=== PATIENT | female | born 1970 | race Caucasian/White ===

== ENCOUNTER 2017-05-11 15:56 | Inpatient (IN) ==
--- NOTE | 2017-05-11 16:18 | Emergency Department Note ---
Disposition Referrals: Mi Warren, KIER HAND [Primary Care Provider] - Forms: ED Satisfaction Letter General Adult HPI - General Chief complaint: ED Shortness of Breath/Dyspnea Stated complaint: AILIN/ BLE Swelling Source: patient, EMS Limitations: no limitations - History of Present Illness Pain Scale: 8 - Related Data Home Medications Medication Instructions Recorded Confirmed Omeprazole [PriLOSEC] 20 mg PO DAILY 06/22/16 05/10/17 Oxygen 3 l NS AD 06/22/16 05/10/17 Cefuroxime Axetil [Cefuroxime] 250 mg PO BID 05/10/17 05/10/17 Previous Rx's Medication Instructions Recorded MOM Conc [MILK OF MAGNESIA conc] 10 ml PO DAILY PRN #300 ud.liq 06/25/16 Sennosides/Docusate Sodium [Senna 2 each PO DAILY 30 Days 06/25/16 Plus] Albuterol Neb [Proventil Neb] 2.5 mg IH Q2H PRN #60 vial.neb 04/25/17 Albuterol Sulfate [Ventolin Hfa] 18 gm IH Q4H PRN #1 hfa.aer.ad 04/25/17 Allopurinol [Zyloprim 100 MG] 400 mg PO DAILY #120 tablet 04/25/17 Fluticasone/Vilanterol [Breo 1 each IH DAILY 30 Days 04/25/17 Ellipta 100-25 Mcg INH] Gabapentin [Neurontin] 200 mg PO TID #30 capsule 04/25/17 Metoprolol [Lopressor] 12.5 mg PO BID #30 tablet 04/25/17 Montelukast [Singulair] 10 mg PO DAILY #30 tablet 04/25/17 Theophylline Anhydrous [Theodur] 300 mg PO BID #60 tab.er.12h 04/25/17 Tiotropium [Spiriva] 18 mcg IH DAILY #30 inh 04/25/17 Cholecalciferol (D-3) [Vitamin D] 2,000 unit PO DAILY #60 tablet 05/06/17 Doxycycline 100 mg PO BID #14 capsule 05/06/17 HYDROcodone/Acet 10/325 mg [[place] 1 each PO Q4H PRN #20 tablet 05/06/17 10-325 mg] Lactobacillus [Culturelle] 1 each PO BID #14 cap.sprink 05/06/17 Sodium Polystyrene Sulfonate 30 gm PO DAILY 7 Days 05/06/17 [Kayexalate] Allergies Allergy/AdvReac Type Severity Reaction Status Date / Time No Known Allergies Allergy Verified 05/06/17 00:08 All systems ED: reviewed and negative except as stated. 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 - Social History Smoking Status: Former smoker Smokeless Tobacco Status: No Alcohol use: Reports: none Drug use: Reports: marijuana Physical Exam - General Limitations: no limitations General appearance: alert, in no apparent distress Course Vital Signs Temperature 97.5 F L 05/11/17 16:04 Pulse Rate 87 05/11/17 16:04 Respiratory Rate 05/11/17 16:04 Blood Pressure 147/98 05/11/17 16:04 O2 Sat by Pulse Oximetry 89 05/11/17 16:04 Temperature 97.5 F L 05/11/17 16:04 Pulse Rate 87 05/11/17 16:04 Respiratory Rate 05/11/17 16:04 Blood Pressure 147/98 05/11/17 16:04 O2 Sat by Pulse Oximetry 89 05/11/17 16:04 Oxygen Delivery Oxygen Delivery Nasal Cannula
--- NOTE | 2017-05-11 17:37 | Emergency Department Note ---
START Narrative - START START: I evaluated and examined the patient with the resident and agree with her findings assessment and plan. I spent direct [id number] time with the patient. The patient comes in from home via EMS, they report the patient oxygen saturation was 89% on 3 L. The patient usually requires 3 L nasal cannula secondary to COPD and CHF. A breathing treatment was given and her oxygen saturations went up into the 90s on the same level of oxygen. The patient was also given 40 mg of Lasix per the EMS providers. The patient was seen at another ER last evening and was treated and released. She describes increasing dyspnea. No chest pain or acute abdominal pain. She has had some lower extremity edema. No other acute complaints or concerns. Physical exam: Age-appropriate morbidly obese laying supine following commands answering questions appropriately. Cardiovascular S1-S2 distant. No JVD. Lower extremity edema noted bilaterally. Lungs decreased breath sounds bilaterally. Poor air flow throughout. Abdomen soft nontender nondistended no rebound rigidity or guarding. Neurologic muscle strength and sensation generally preserved cranial nerves II through XII grossly intact. Exposed skin warm and dry without petechial purpura blistering or blackening. Chronic venous stasis changes noted lower extremities. Abdominal wall reveals no juan carlos cellulitis. No crepitance of the skin absence fluctuance or significant reddening. Impression: Hypoxemia Morbid obesity CHF Bilateral pleural effusions COPD The patient has hypercarbic change, pH is normal however, she is taking 2 antibiotics at this time. Lactic acid negative. BiPAP was initiated. The patient appears to be stable. Based on her hypoxemia with an initial O2 sat of 89%, multiple comorbidities including CHF COPD and an abnormal chest x-ray with complaints of dyspnea, I thought it would be appropriate to admit the patient to the hospital for further evaluation. She is currently stable pending admission. The hospitalist has accepted the patient to their care.
[2017-05-11 17:47] LABS: Eosinophils % 0.5 %; Mean Platelet Volume 10.7 fL (9.4-12.4); Nucleated Red Blood Cells 0.5 /100 WBC (0)
[2017-05-11 17:48] LABS: Basophils % 0.8 %; Hematocrit 38.2 % (35.3-44.9); Hemoglobin 11.2 g/dL (11.5-15.4); Immature Granulocytes % 0.5 % (0-4); Lymphocytes # 0.9 K/mcL (0.6-4.6); Lymphocytes % 25.3 %; Mean Corpuscular HGB Conc 29.3 g/dL (31.6-35.5); Mean Corpuscular Hemoglobin 28.6 pg (28.0-33.3); Mean Corpuscular Volume 97.4 fL (83.0-100.0); Monocytes # 0.3 K/mcL (0.0-1.3); Monocytes % 8.8 %; Neutrophils # 2.3 K/mcL (1.6-8.9); Platelet Count 240 K/mcL (140-400); Red Blood Count 3.92 M/mcL (3.82-4.97); Red Cell Distribution Width 19.8 % (11.5-14.5); Segmented Neutrophils % 64.1 %
--- NOTE | 2017-05-11 17:57 | Emergency Department Note ---
Disposition Clinical Impression: Acute and chronic respiratory failure with hypercapnia, COPD exacerbation Acute CHF (congestive heart failure) Qualifiers: Congestive heart failure type: unspecified congestive heart failure type Qualified Code(s): I50.9 - Heart failure, unspecified Disposition: Admitted As Inpatient Condition: Fair Referrals: Mi Warren, PRINT CONTROLLER [Primary Care Provider] - Forms: ED Satisfaction Letter Time of Disposition: 20:24 SOB HPI - General Chief Complaint: ED Shortness of Breath/Dyspnea Stated Complaint: AILIN/ BLE Swelling Time Seen by Provider: 05/11/17 17:18 Source: patient, EMS Mode of arrival: EMS Limitations: no limitations Nursing Notes Reviewed: Yes Vital Signs Reviewed: Yes - History of Present Illness 46 year old female with PMHx of morbid obesity, pulmonary hypertension, chronic respiratory failure, COPD (on 3L home oxygen), CKD, CHF (last echo from 06/05/16 showed LVEF 40%, mild global LV systolic dysfunction with paradoxical bounce of the interventricular septum of unclear etiology), DM, SMITA (on biPAP), hypothyroidism. She was last amitted on 05/04/17 for abdominal wall cellulitis. She was seen at [place] [facility] yesterday for shortness of breath, increase lower extremity swelling. Per ED notes, she has refused retirement placement in the past. She was discharged from [place] [facility] [facility] with a prescription for Lasix. Patient came from home and was brought here by [facility]. She has chief complaint of shortness of breath that started today when she was about to go to her doctors appointment. She stated that she went to get into her car and was having significant trouble with difficulty in breathing and could not get into the car. When this happened, she called the squad. Patient reports compliance with BiPAP and says that she wears that every single night. Patient reports compliance with all of her home inhalers. He states that her doctor recently took her off of her Lasix during the 1st week of March. She has been off of Lasix ever since. She admits to nausea with clear vomitus reports diarrhea several times a day that started on . She denies fever admits to having chills. She does have a smoking history of about 28 years and she has smoked 2 packs per day but quit 4 months ago. Patient received 40 mg Lasix by squad. Complains of side effects are no chest pain 06/07. Resting makes chest pain better. There are no exacerbating factors. Chest pain does not wake her up at night. She reports that she has had to left heart catheterizations in the past but has not had any stent placements. Pt Subjective Complaint: shortness of breath Onset (ago): hour(s) Severity: moderate Consistency/Duration: constant Improves with: oxygen Worsens with: other (rest) Known history of: COPD, asthma, congestive heart failure, diabetes Associated symptoms: Reports: chest pain. Denies: fever Treatment prior to arrival: other (lasix) - Related Data Home Medications Medication Instructions Recorded Confirmed Omeprazole [PriLOSEC] 20 mg PO DAILY 06/22/16 05/10/17 Oxygen 3 l NS AD 06/22/16 05/10/17 Previous Rx's Medication Instructions Recorded Albuterol Neb [Proventil Neb] 2.5 mg IH Q2H PRN #60 vial.neb 04/25/17 Albuterol Sulfate [Ventolin Hfa] 18 gm IH Q4H PRN #1 hfa.aer.ad 04/25/17 Allopurinol [Zyloprim 100 MG] 400 mg PO DAILY #120 tablet 04/25/17 Fluticasone/Vilanterol [Breo 1 each IH DAILY 30 Days 04/25/17 Ellipta 100-25 Mcg INH] Gabapentin [Neurontin] 200 mg PO TID #30 capsule 04/25/17 Metoprolol [Lopressor] 12.5 mg PO BID #30 tablet 04/25/17 Montelukast [Singulair] 10 mg PO DAILY #30 tablet 04/25/17 Theophylline Anhydrous [Theodur] 300 mg PO BID #60 tab.er.12h 04/25/17 Tiotropium [Spiriva] 18 mcg IH DAILY #30 inh 04/25/17 Cholecalciferol (D-3) [Vitamin D] 2,000 unit PO DAILY #60 tablet 05/06/17 Sodium Polystyrene Sulfonate 30 gm PO DAILY 7 Days 05/06/17 [Kayexalate] Allergies Allergy/AdvReac Type Severity Reaction Status Date / Time No Known Allergies Allergy Verified 05/06/17 00:08 All systems ED: reviewed and negative except as stated. 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 ) - Cardiovascular Cardiovascular exam: Present: tachycardia - Abdominal Exam Abdominal exam: Present: tenderness, other (abdomen obese with redness in the lower abdomen/pannus area. She has mild epigastric and lower abdominal tenderness to palpation. ) Abdominal tenderness: Present: RLQ, LLQ - Extremities Exam Extremities exam: Present: other (+4 bilateral lower extremity pitting edema. ) - Back Exam Back exam: Present: normal inspection - Neurological Exam Neurological exam: Present: alert, oriented X3 - Psychiatric Psychiatric exam: Present: depressed, anxious Course Vital Signs Temperature 97.5 F L 05/11/17 16:04 Pulse Rate 87 05/11/17 16:04 Respiratory Rate 26 05/11/17 16:04 Blood Pressure 147/98 05/11/17 16:04 O2 Sat by Pulse Oximetry 89 05/11/17 16:04 Temperature 97.5 F L 05/11/17 16:04 Pulse Rate 104 05/11/17 19:05 Respiratory Rate 27 05/11/17 19:05 Blood Pressure 126/83 05/11/17 19:05 O2 Sat by Pulse Oximetry 98 05/11/17 19:05 Oxygen Delivery Oxygen Delivery Room Air Shortness of Breath/Dyspnea - MDM Narrative Medical decision making narrative: CBC showed Hg of 11.2, which is about baseline. BMP PT/INR within normal limits. BMP showed potassium of 4.6, bicarb of 43. Troponin was negative. EKG showed no acute ST changes. Cr and lactic acid normal. BNP was 415. CXR showed mild cardiomegaly with slight pulmonary vascular congestion, and trace bilateral effusions. Patient received 40mg lasix by squad. She also received a breathing treatment, IV steroids, and was placed on BiPAP. ABG showed normal pH with a mixed acid/base disorder, CO2 was 71. Patient was placed on BiPAP, received a breathing treatment, and received one dose of IV methyprednisolone. Patient will be admitted as inpatient for treatment of acute CHF, COPD exacerbation, and acute on chronic respiratory failure with hypercapnia. Spoke with hospitalist, Dr. Cruz, who has accepted the patient. - Medical Records Medical records reviewed: Yes I reviewed the patient's medical records. - Lab Data Lab results reviewed: Yes I reviewed the patient's lab results. Result diagrams: 05/11/17 17:33 05/11/17 17:33 Lab Results 05/11/17 05/11/17 05/11/17 Range/Units 17:33 17:33 17:33 WBC 3.6 L (4.3-11.1) K/mcL RBC 3.92 (3.82-4.97) M/mcL Hgb 11.2 L (11.5-15.4) g/dL Hct 38.2 (35.3-44.9) % MCV 97.4 (83.0-100.0) fL MCH 28.6 (28.0-33.3) pg MCHC 29.3 L (31.6-35.5) g/dL RDW 19.8 H (11.5-14.5) % Plt Count 240 (140-400) K/mcL MPV 10.7 (9.4-12.4) fL Immature Gran % 0.5 (0-4) % Seg Neutrophils % 64.1 % Lymphocytes % 25.3 % Monocytes % 8.8 % Eosinophils % 0.5 % Basophils % 0.8 % Neutrophils # 2.3 (1.6-8.9) K/mcL Lymphocytes # 0.9 (0.6-4.6) K/mcL Monocytes # 0.3 (0.0-1.3) K/mcL Eosinophils # 0.0 (0.0-0.6) K/mcL Basophils # 0.0 (0.0-0.2) K/mcL Nucleated RBCs/100 WBC 0.5 H (0) /100 WBC Platelet Estimate Normal (Normal) Hypochromasia Present A (Not Present) Anisocytosis 2+ A (Not Present) Microcytosis Present A (Not Present) PT (9.4-12.1) Seconds INR APTT (26.0-36.0) Seconds ABG pH (7.32-7.45) pH Units ABG pCO2 (35-45) mmHg ABG pO2 (85-104) mmHg ABG HCO3 (21-27) mEQ/L ABG Total CO2 (20-26) mEq/L ABG O2 Saturation (95-98) % ABG Base Excess (-2.0 to 3.0) mEq/L Blood Gas Modality Inspired O2 % Sodium 142 (136-145) mEq/L Potassium 4.6 H (3.5-4.5) mEq/L Chloride 92 L (98-109) mEq/L Carbon Dioxide 43 H* (19-29) mEq/L BUN 13 (7-20) mg/dL Creatinine 0.99 (0.57-1.11) mg/dL Est GFR ( Amer) > 60 (> 60) Est GFR (Non-Af Amer) > 60 (> 60) BUN/Creatinine Ratio 13 (6-26) Glucose 83 (70-99) mg/dL Calculated Osmolality 293 (280-300) Lactic Acid 0.7 (0.5-2.2) mmol/L Calcium 10.1 (8.6-10.8) mg/dL Total Bilirubin (0.2-1.2) mg/dL Direct Bilirubin (0.0-0.5) mg/dL Indirect Bilirubin (0.0-1.2) mg/dL AST (5-34) Units/L ALT (0-55) Units/L Alkaline Phosphatase (38-126) Units/L Troponin I (0-0.03) ng/mL C-Reactive Protein (Less than 5) mg/L B-Natriuretic Peptide (0-100) pg/mL Serum Total Protein (6.0-8.3) g/dL Albumin (3.5-5.0) g/dL Globulin (2.4-3.5) g/dL Albumin/Globulin Ratio (1.1-2.2) 05/11/17 05/11/17 05/11/17 Range/Units 17:33 17:33 17:33 WBC (4.3-11.1) K/mcL RBC (3.82-4.97) M/mcL Hgb (11.5-15.4) g/dL Hct (35.3-44.9) % MCV (83.0-100.0) fL MCH (28.0-33.3) pg MCHC (31.6-35.5) g/dL RDW (11.5-14.5) % Plt Count (140-400) K/mcL MPV (9.4-12.4) fL Immature Gran % (0-4) % Seg Neutrophils % % Lymphocytes % % Monocytes % % Eosinophils % % Basophils % % Neutrophils # (1.6-8.9) K/mcL Lymphocytes # (0.6-4.6) K/mcL Monocytes # (0.0-1.3) K/mcL Eosinophils # (0.0-0.6) K/mcL Basophils # (0.0-0.2) K/mcL Nucleated RBCs/100 WBC (0) /100 WBC Platelet Estimate (Normal) Hypochromasia (Not Present) Anisocytosis (Not Present) Microcytosis (Not Present) PT 13.3 H (9.4-12.1) Seconds INR 1.2 APTT 32.1 (26.0-36.0) Seconds ABG pH (7.32-7.45) pH Units ABG pCO2 (35-45) mmHg ABG pO2 (85-104) mmHg ABG HCO3 (21-27) mEQ/L ABG Total CO2 (20-26) mEq/L ABG O2 Saturation (95-98) % ABG Base Excess (-2.0 to 3.0) mEq/L Blood Gas Modality Inspired O2 % Sodium (136-145) mEq/L Potassium (3.5-4.5) mEq/L Chloride (98-109) mEq/L Carbon Dioxide (19-29) mEq/L BUN (7-20) mg/dL Creatinine (0.57-1.11) mg/dL Est GFR ( Amer) (> 60) Est GFR (Non-Af Amer) (> 60) BUN/Creatinine Ratio (6-26) Glucose (70-99) mg/dL Calculated Osmolality (280-300) Lactic Acid (0.5-2.2) mmol/L Calcium (8.6-10.8) mg/dL Total Bilirubin (0.2-1.2) mg/dL Direct Bilirubin (0.0-0.5) mg/dL Indirect Bilirubin (0.0-1.2) mg/dL AST (5-34) Units/L ALT (0-55) Units/L Alkaline Phosphatase (38-126) Units/L Troponin I 0.01 (0-0.03) ng/mL C-Reactive Protein (Less than 5) mg/L B-Natriuretic Peptide 415 H (0-100) pg/mL Serum Total Protein (6.0-8.3) g/dL Albumin (3.5-5.0) g/dL Globulin (2.4-3.5) g/dL Albumin/Globulin Ratio (1.1-2.2) 05/11/17 05/11/17 Range/Units 17:33 18:30 WBC (4.3-11.1) K/mcL RBC (3.82-4.97) M/mcL Hgb (11.5-15.4) g/dL Hct (35.3-44.9) % MCV (83.0-100.0) fL MCH (28.0-33.3) pg MCHC (31.6-35.5) g/dL RDW (11.5-14.5) % Plt Count (140-400) K/mcL MPV (9.4-12.4) fL Immature Gran % (0-4) % Seg Neutrophils % % Lymphocytes % % Monocytes % % Eosinophils % % Basophils % % Neutrophils # (1.6-8.9) K/mcL Lymphocytes # (0.6-4.6) K/mcL Monocytes # (0.0-1.3) K/mcL Eosinophils # (0.0-0.6) K/mcL Basophils # (0.0-0.2) K/mcL Nucleated RBCs/100 WBC (0) /100 WBC Platelet Estimate (Normal) Hypochromasia (Not Present) Anisocytosis (Not Present) Microcytosis (Not Present) PT (9.4-12.1) Seconds INR APTT (26.0-36.0) Seconds ABG pH 7.44 (7.32-7.45) pH Units ABG pCO2 71 H* (35-45) mmHg ABG pO2 74 L (85-104) mmHg ABG HCO3 48.2 H (21-27) mEQ/L ABG Total CO2 50.4 H (20-26) mEq/L ABG O2 Saturation 95 (95-98) % ABG Base Excess 20.9 H (-2.0 to 3.0) mEq/L Blood Gas Modality NC Inspired O2 36 % Sodium (136-145) mEq/L Potassium (3.5-4.5) mEq/L Chloride (98-109) mEq/L Carbon Dioxide (19-29) mEq/L BUN (7-20) mg/dL Creatinine (0.57-1.11) mg/dL Est GFR ( Amer) (> 60) Est GFR (Non-Af Amer) (> 60) BUN/Creatinine Ratio (6-26) Glucose (70-99) mg/dL Calculated Osmolality (280-300) Lactic Acid (0.5-2.2) mmol/L Calcium (8.6-10.8) mg/dL Total Bilirubin 0.7 (0.2-1.2) mg/dL Direct Bilirubin 0.3 (0.0-0.5) mg/dL Indirect Bilirubin 0.4 (0.0-1.2) mg/dL AST 16 (5-34) Units/L ALT < 6 (0-55) Units/L Alkaline Phosphatase 132 H (38-126) Units/L Troponin I (0-0.03) ng/mL C-Reactive Protein 9 H (Less than 5) mg/L B-Natriuretic Peptide (0-100) pg/mL Serum Total Protein 7.4 D (6.0-8.3) g/dL Albumin 3.7 D (3.5-5.0) g/dL Globulin 3.7 H (2.4-3.5) g/dL Albumin/Globulin Ratio 1.0 L (1.1-2.2) - Radiology Data Radiology results reviewed: Yes I reviewed the patient's radiology results. KEG showed low voltage, sinus rhythm, slowed interventricular delay, no acute ST changes, ventricular rate 96, KY interval 166, QRS 118, Qt/Qtc 356/410, P-R- T axes 66 -1 19 - EKG Data EKG attestation: Yes I reviewed and interpreted this EKG. EKG results narrative: low voltage, sinus rhythm. Ventricular rate: 96, KY interval 166, QRS duration: 118, Qt/Qtc: 356/410, P-R-T axes 66 -1 19. no acute ischemic changes noted. EKG shows normal: Reports: sinus rhythm
[2017-05-11 17:58] LABS: INR 1.2; Prothrombin Time 13.3 Seconds (9.4-12.1)
[2017-05-11 18:01] LABS: Activated Partial Thrombo Time 32.1 Seconds (26.0-36.0)
[2017-05-11 18:02] LABS: BUN/Creatinine Ratio 13 (6-26); Blood Urea Nitrogen 13 mg/dL (7-20); Calcium 10.1 mg/dL (8.6-10.8); Chloride 92 mEq/L (98-109); Glucose 83 mg/dL (70-99); Osmolality,Calculated 293 (280-300); Potassium 4.6 mEq/L (3.5-4.5); Sodium 142 mEq/L (136-145); eGFR For African Americans > 60 (> 60); eGFR For Non-African Americans > 60 (> 60)
[2017-05-11 18:04] LABS: Albumin 3.7 g/dL (3.5-5.0); Alkaline Phosphatase 132 Units/L (38-126); Anisocytosis 2+ (Not Present); Aspartate Amino Transferase 16 Units/L (5-34); Bilirubin,Direct 0.3 mg/dL (0.0-0.5); Bilirubin,Indirect 0.4 mg/dL (0.0-1.2); Bilirubin,Total 0.7 mg/dL (0.2-1.2); C-Reactive Protein 9 mg/L (Less than 5); Globulin 3.7 g/dL (2.4-3.5); Hypochromasia Present (Not Present); Microcytosis Present (Not Present); Platelet Estimate Normal (Normal); Total Protein 7.4 g/dL (6.0-8.3)
[2017-05-11] MEDS ORDERED: Nitroglycerin 1 INCH/GM PACKET TP ONE (18:07)
[2017-05-11] MEDS ORDERED: Ipratropium/Albuterol Neb 3 ML IH ONE (18:07)
[2017-05-11] MEDS ORDERED: methylPREDNISolone 125 MG/2 ML VIAL IVP ONE (18:08)
[2017-05-11 18:11] LABS: Alanine Aminotransferase < 6 Units/L (0-55); Carbon Dioxide 43 mEq/L (19-29)
[2017-05-11] MEDS ORDERED: *HR* HYDROcodone/Acet 5/325 mg TABLET PO ONE (18:33)
[2017-05-11 18:48] LABS: ABG Base Excess 20.9 mEq/L (-2.0 to 3.0); ABG HCO3 48.2 mEQ/L (21-27); ABG Oxygen Saturation 95 % (95-98); ABG PH 7.44 pH Units (7.32-7.45); ABG PO2 74 mmHg (85-104); ABG TCO2 50.4 mEq/L (20-26)
[2017-05-11 18:49] LABS: Blood Gas FiO2 36 %
[2017-05-11 18:50] LABS: ABG PCO2 71 mmHg (35-45)
[2017-05-12] MEDS ORDERED: Nitroglycerin 0.4 MG TAB.SUBL SL PRN (00:55)
[2017-05-12] MEDS ORDERED: Ondansetron 4 MG/2 ML VIAL IVP PRN (00:57)
[2017-05-12] MEDS ORDERED: Dextrose Gel 15 GM PO PRN ×2 (00:57)
[2017-05-12] MEDS ORDERED: D5% in Water 1,000 ML IVC PRN (00:57)
[2017-05-12] MEDS ORDERED: Naloxone 0.4 MG/ML INJ IVP PRN (00:57)
[2017-05-12] MEDS ORDERED: Acetaminophen 325 MG TABLET PO PRN (00:57)
[2017-05-12] MEDS ORDERED: *HR* Dextrose 50 % in Water (Syg) 50 ML SYRINGE IVP PRN (00:57)
--- NOTE | 2017-05-12 01:08 | Internal Med History&Physical ---
Date of Encounter: 05/12/17 Time of Encounter: 01:05 Assessment and Plan (1) Acute CHF (congestive heart failure) Current visit: Yes Status: Acute Acute and chronic hypoxic and hypercapnic respiratory failure secondary to acute systolic CHF exacerbation in combination with acute COPD exacerbation possibly from viral bronchitis Restart Lasix IV, strict I's and O's and daily weight Continue Solu-Medrol, DuoNeb's, BiPAP, oxygen therapy Omeprazole for GI prophylaxis and subcutaneous heparin for DVT prophylaxis. The patient will be admitted as inpatient, expected to stay more than 2 midnights. Full code. Time spent on this admission 40 minutes. High risk due to respiratory failure Qualifiers: Congestive heart failure type: systolic Qualified Code(s): I50.21 - Acute systolic (congestive) heart failure (2) Acute and chronic respiratory failure with hypercapnia Current visit: Yes Status: Acute (3) DM type 2 (diabetes mellitus, type 2) Current visit: No Status: Chronic Continue insulin sliding scale Qualifiers: Diabetes mellitus complication status: without complication Diabetes mellitus custodial insulin use: without custodial use Qualified Code(s): E11.9 - Type 2 diabetes mellitus without complications (4) Hypothyroidism Current visit: No Status: Acute Qualifiers: Hypothyroidism type: unspecified Qualified Code(s): E03.9 - Hypothyroidism , unspecified (5) Morbid obesity with BMI of 40.0-44.9, adult Current visit: No Status: Chronic (6) CKD (chronic kidney disease) stage 3, GFR 30-59 ml/min Current visit: No Status: Chronic Internal Medicine - H&P: HPI Chief complaint: Shortness of breath Admitted From: Emergency Dept History of present illness: Ms. Corbett is a 46 year old female with a past medical history of systolic CHF with an ejection fraction of 40%, chronic kidney disease stage III, COPD using 3 L at home, chronic respiratory failure, obstructive sleep apnea using BiPAP came to the emergency room complaining of persistent difficulty breathing. She was seen the day before at [facility] emergency room where she was discharged on Lasix. Prior to that, she was discharged from [facility] on May 04 after being treated for an abdominal wall cellulitis. The patient has been off her Lasix since the end of March when her creatinine increased. Her chest x-ray shows pulmonary vascular congestion and trace bilateral pleural effusions pH is 7.44 PCO2 was 71 and PO2 74 white blood cell count 3.6 BNP is 415 the patient is obese. Heart rate was 102 blood pressure 147/98. In the past the patient has refused to go to nursing facilities, she complains of increased leg swelling as well, was brought to the emergency room by the squad, she was given Lasix 40 mg , Solu-Medrol, her saturation was 89% on 3 L, was started on BiPAP at the emergency room. Is complaining of abdominal pain at the moment Past Med Surg Social Fam HX - Past Medical History Medical history: arthritis, asthma, cardiomyopathy, CHF (Systolic ejection fraction 40%), COPD (Oxygen dependent 3 L at home), diabetes (Not insulin- dependent), GERD, hypertension, osteoporosis, peripheral artery disease, venous stasis, other Psychiatric history: anxiety, depression, other (Leukopenia, morbid obesity, pulmonary hypertension, chronic respiratory failure, chronic kidney disease stage III, obstructive sleep apnea on BiPAP, hypothyroidism, neuropathy, cardiomyopathy, peripheral artery disease, abdominal wall cellulitis, hyperkalemia, irritable bowel syndrome, gout) - Past Surgical History Surgical History: herniorrhaphy, other - Social History Smoking Status: Former smoker Packs per day: Smoked 2 packs per day for 28 years quit 4 months ago Smokeless Tobacco Status: No Alcohol use: none Drug use: marijuana - Family History Son Adopted: No Family Member Ethnicity: Non- Living Status: Still Living Hx Family Cardiac Disorders: Yes Hx Family Respiratory Disorders: Yes Hx Family Cancer: No Hx Family GI Disorders: No Hx Family Endocrine Disorder: Yes Hx Family Neuromuscular Disorders: No Hx Family Neurologic Disorders: No Hx Family HEENT Disorders: No Hx Family Autoimmune Disorders: No Father Living Status: Hx Family Cardiac Disorders: Yes (enlarged heart) Hx Family Respiratory Disorders: (Emphysema) Hx Family Cancer: Yes (Lung and rectal cancer) Hx Family Endocrine Disorder: Yes (diabetic) Mother Living Status: Hx Family Cardiac Disorders: Yes (stents) Hx Family GI Disorders: Yes (GI bleed) Hx Family Endocrine Disorder: Yes (diabetic) - Additional Family History Additional family history: Father with colon cancer diabetes, mother with CAD and diabetes, sister with CKD Internal Medicine - H&P: Meds Omeprazole [PriLOSEC] 20 mg PO DAILY 06/22/16 [History] Oxygen 3 l NS AD 06/22/16 [History] Albuterol Neb [Proventil Neb] 2.5 mg IH Q2H PRN #60 vial.neb 04/25/17 [Rx] Albuterol Sulfate [Ventolin Hfa] 18 gm IH Q4H PRN #1 hfa.aer.ad 04/25/17 [Rx] Allopurinol [Zyloprim 100 MG] 400 mg PO DAILY #120 tablet 04/25/17 [Rx] Fluticasone/Vilanterol [Breo Ellipta 100-25 Mcg INH] 1 each IH DAILY 30 Days [Rx] Gabapentin [Neurontin] 200 mg PO TID #30 capsule 04/25/17 [Rx] Metoprolol [Lopressor] 12.5 mg PO BID #30 tablet 04/25/17 [Rx] Montelukast [Singulair] 10 mg PO DAILY #30 tablet 04/25/17 [Rx] Theophylline Anhydrous [Theodur] 300 mg PO BID #60 tab.er.12h 04/25/17 [Rx] Tiotropium [Spiriva] 18 mcg IH DAILY #30 inh 04/25/17 [Rx] Cholecalciferol (D-3) [Vitamin D] 2,000 unit PO DAILY #60 tablet 05/06/17 [Rx] Sodium Polystyrene Sulfonate [Kayexalate] 30 gm PO DAILY 7 Days 05/06/17 [Rx] Allergies No Known Allergies Allergy (Verified 05/06/17 00:08) All Systems PM: A 10-system review of systems was performed and is negative for pertinent findings except as documented above in the HPI. Review of systems: Patient is a still short of breath, other systems out of the 10 reviewed were negative. White blood cell count is 3.6 but she has history of leukopenia - Constitutional Vitals: Temp Pulse Resp BP Pulse Ox 99.3 F 92 24 111/69 94 05/11/17 23:43 05/11/17 23:43 05/11/17 23:43 05/11/17 23:43 05/11/17 23:43 General appearance: Present: A&O X 3, morbidly obese - Head Head exam: Present: atraumatic, normocephalic - Eye Eye exam: Present: PERRL, conjuntiva pink, sclera anicteric Pupils: Present: PERRL - Neck Neck exam general surgery: Present: supple, trachea midline. Absent: lymphadenopathy - Respiratory Respiratory exam: Present: CTAB, rales (Very diminished breath sounds with bibasilar crackles). Absent: accessory muscle use, rhonchi, wheezes - Cardiovascular Cardiovascular exam: Present: RRR, +S1, +S2. Absent: diastolic murmur, gallop, rubs, systolic murmur - GI/Abdominal GI/Abdominal exam: Present: distended (Obese), normal bowel sounds, soft, no peritoneal signs. Absent: tenderness - Extremities Exam Extremities exam: Present: pedal edema (+2 pitting edema both lower extremities) , warm, radial pulses palpable and symetrical. Absent: calf tenderness, cyanotic - Neurological Exam Neurological exam: Present: CN II-XII intact, oriented X3, no focal deficits. Absent: pronater drift, facial droop, speech deficit - Skin Skin exam: Present: dry, intact Internal Med - H&P Results - Labs CBC & Chem 7: 05/11/17 17:33 05/11/17 17:33
[2017-05-12] MEDS: *HR* OxyCODONE Immed Rel 5 MG TABLET PO PRN ×4 (01:17→21:12)
[2017-05-12] MEDS: *HR* Heparin 5,000 UNIT/ML VIAL SQ SCH ×4 (01:17→21:11)
[2017-05-12] MEDS: Furosemide 40 MG/4 ML VIAL IVP SCH ×3 (01:17→16:57)
[2017-05-12] MEDS: *HR* Morphine 2 MG/ML SYRINGE IVP PRN ×4 (03:07→18:35)
[2017-05-12] MEDS: Ipratropium/Albuterol Neb 3 ML IH SCH ×4 (03:40→22:45)
[2017-05-12 05:00] LABS: BUN/Creatinine Ratio 13 (6-26); Blood Urea Nitrogen 13 mg/dL (7-20); Calcium 9.3 mg/dL (8.6-10.8); Chloride 93 mEq/L (98-109); Chol/HDL Ratio 2.7 (0-4.9); Cholesterol 147 mg/dL (< 200); Glucose 178 mg/dL (70-99); HDL Cholesterol 55 mg/dL (40-59); LDL Cholesterol,Calculated 78 mg/dL (0-99); Osmolality,Calculated 297 (280-300); Potassium 5.1 mEq/L (3.5-4.5); Sodium 141 mEq/L (136-145); Triglycerides 68 mg/dL (< 150); eGFR For African Americans > 60 (> 60); eGFR For Non-African Americans 59 (> 60)
[2017-05-12 05:05] LABS: Carbon Dioxide 40 mEq/L (19-29)
[2017-05-12] MEDS ORDERED: MethylPREDNISolone 40 MG/ML VIAL IVP SCH (08:00)
[2017-05-12] MEDS: Gabapentin 100 MG CAPSULE PO SCH ×3 (08:06→21:11)
[2017-05-12] MEDS: Insulin LISPRO 300 UNITS/3 ML VIAL SQ SCH ×4 (08:06→21:07)
--- NOTE | 2017-05-12 08:25 | Electrocardiograph Report ---
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
--- NOTE | 2017-05-12 10:17 | Event Note ---
Date of Encounter: 05/12/17 Time of Encounter: 10:17 46-year-old female with morbid obesity and multiple medical problems including CHF and COPD, presents with complaints of worsening bilateral leg swelling and shortness of breath. Patient was recently admitted and discharged from [facility] after being treated for abdominal wall cellulitis. Patient seen and examined at bedside. Reports leg swelling and some shortness of breath, currently improving. Patient is awake, alert and oriented 3. Morbidly obese with significant abdominal pannus. Chest-S1, S2 heard. Regular rate and rhythm. Lungs with decreased bilateral air entry. Abdomen-soft, extremely obese with pannus, nontender. No evidence of cellulitis. Reviewed labs-potassium 5.1, serum bicarbonate 40, BNP- 415 Review of previous medical records show that patient has had multiple hospitalizations at [facility] and [facility], including 2 in the last month; she is noted to have social and family issues and it is also noted that she may be using narcotic pain medications off the street according to previous notes. Acute on chronic systolic CHF-patient is noted to have bilateral pedal edema during her most recent hospital admission, although she reports this is new. Continue IV Lasix while monitoring serum creatinine as she is noted to have acute on chronic renal failure with the use of diuretics and she was recently taken off diuretics for this reason. Fluid restriction and urine output monitoring. Continue telemetry monitoring, beta obed. Supportive care and supplemental oxygen. Previous echocardiogram from May 2016 showed moderately decreased EF around 40%, mild global left ventricular systolic dysfunction, indeterminate diastolic function, mild to moderate tricuspid regurgitation, moderate pulmonary hypertension. Will repeat echocardiogram. Chronic kidney disease stage III, hyperkalemia-review of previous records show that patient has always had issues with hyperkalemia and episodes of acute on chronic renal failure. Will give Kayexalate and monitor potassium closely. Low potassium renal diet. Continue telemetry monitoring. Likely mild exacerbation of COPD-taper down IV steroids as tolerated. Continue bronchodilators and supplemental oxygen. Patient does use home oxygen and seems to be having issues with oxygen tanks. product manager financial services and social organization professor to follow. Metabolic alkalosis-likely contraction alkalosis related to the use of diuretics. Continue to monitor. Morbid obesity, obstructive sleep apnea-continue CPAP during sleep.
[2017-05-12] MEDS: MethylPREDNISolone 40 MG/ML VIAL IVP SCH (16:55)
[2017-05-13] MEDS: *HR* Morphine 2 MG/ML SYRINGE IVP PRN ×4 (00:48→22:47)
[2017-05-13] MEDS: Ipratropium/Albuterol Neb 3 ML IH SCH ×4 (03:40→22:26)
[2017-05-13] MEDS: *HR* OxyCODONE Immed Rel 5 MG TABLET PO PRN ×3 (04:54→17:14)
[2017-05-13] MEDS: *HR* Heparin 5,000 UNIT/ML VIAL SQ SCH ×3 (05:00→22:47)
[2017-05-13] MEDS: MethylPREDNISolone 40 MG/ML VIAL IVP SCH ×2 (05:00→17:14)
[2017-05-13 05:08] LABS: Hematocrit 33.9 % (35.3-44.9); Hemoglobin 9.3 g/dL (11.5-15.4); Lymphocytes # 0.5 K/mcL (0.6-4.6); Lymphocytes % 24.9 %; Mean Corpuscular HGB Conc 27.4 g/dL (31.6-35.5); Mean Corpuscular Volume 98.3 fL (83.0-100.0); Mean Platelet Volume 10.5 fL (9.4-12.4); Monocytes # 0.2 K/mcL (0.0-1.3); Monocytes % 10.2 %; Platelet Count 174 K/mcL (140-400); Red Blood Count 3.45 M/mcL (3.82-4.97); Red Cell Distribution Width 18.7 % (11.5-14.5); Segmented Neutrophils % 64.9 %
[2017-05-13 05:22] LABS: BUN/Creatinine Ratio 17 (6-26); Blood Urea Nitrogen 18 mg/dL (7-20); Calcium 8.4 mg/dL (8.6-10.8); Chloride 90 mEq/L (98-109); Glucose 142 mg/dL (70-99); Osmolality,Calculated 292 (280-300); Potassium 4.8 mEq/L (3.5-4.5); Sodium 139 mEq/L (136-145); eGFR For African Americans > 60 (> 60); eGFR For Non-African Americans 58 (> 60)
[2017-05-13 05:23] LABS: Neutrophils # 1.4 K/mcL (1.6-8.9)
[2017-05-13 05:35] LABS: Carbon Dioxide 42 mEq/L (19-29)
[2017-05-13 05:51] LABS: Anisocytosis 1+ (Not Present)
[2017-05-13 05:52] LABS: Hypochromasia Present (Not Present); Large Platelets Present (Not Present); Platelet Estimate Normal (Normal)
[2017-05-13] MEDS: Furosemide 40 MG/4 ML VIAL IVP SCH ×2 (08:24→17:14)
[2017-05-13] MEDS: Insulin LISPRO 300 UNITS/3 ML VIAL SQ SCH ×4 (08:24→20:08)
[2017-05-13] MEDS: Gabapentin 100 MG CAPSULE PO SCH ×3 (08:25→20:02)
--- NOTE | 2017-05-13 12:02 | Internal Med Progress Note ---
Date of Encounter: 05/13/17 Time of Encounter: 11:59 - Assessment and plan (1) Acute exacerbation of chronic obstructive airways disease Current Visit: Yes Status: Acute Assessment and plan: Improving slowly. Continue IV steroids, taper down as tolerated. Continue scheduled bronchodilators and continue supplemental oxygen along with BiPAP support when asleep. financial services agent working on arranging continuous oxygen supply for the patient due to social issues. (2) Congestive heart failure Current Visit: Yes Status: Acute Assessment and plan: Patient is noted to have subjective dyspnea along with pedal edema. She likely has cor pulmonale due to severe pulmonary hypertension due to COPD and obstructive sleep apnea. Continue IV Lasix, beta obed, fluid restriction and urine output monitoring. Repeat echocardiogram shows improved ejection fraction at 45-50%, moderate right ventricular hypokinesis, moderate to severe right ventricular dilation, severe tricuspid regurgitation and pulmonary hypertension. Continue telemetry monitoring. Qualifiers: Congestive heart failure type: combined Congestive heart failure chronicity : acute on chronic Qualified Code(s): I50.43 - Acute on chronic combined systolic (congestive) and diastolic (congestive) heart failure (3) Morbid obesity with BMI of 40.0-44.9, adult Current Visit: Yes Status: Chronic (4) Moderate to severe pulmonary hypertension Current Visit: Yes Status: Chronic Assessment and plan: Likely secondary to COPD and obstructive sleep apnea. (5) CKD (chronic kidney disease) stage 3, GFR 30-59 ml/min Current Visit: Yes Status: Chronic Assessment and plan: Serum creatinine noted to be stable. Serum potassium improved to 4.8. (6) DM type 2 (diabetes mellitus, type 2) Current Visit: Yes Status: Chronic Assessment and plan: Continue Accu-Chek blood glucose monitoring with sliding scale insulin. Diabetic diet. Qualifiers: Diabetes mellitus complication status: with kidney complications Diabetes mellitus complication detail: with chronic kidney disease Diabetes mellitus superintendent container terminal insulin use: without prison use Chronic kidney disease stage: stage 3 (moderate) Qualified Code(s): E11.22 - Type 2 diabetes mellitus with diabetic chronic kidney disease; N18.3 - Chronic kidney disease, stage 3 ( moderate) (7) SMITA treated with BiPAP Current Visit: Yes Status: Chronic (8) Hypothyroidism Current Visit: Yes Status: Chronic Assessment and plan: Resume home dose of levothyroxine. Qualifiers: Hypothyroidism type: unspecified Qualified Code(s): E03.9 - Hypothyroidism , unspecified (9) Panniculitis Current Visit: Yes Status: Chronic Assessment and plan: Patient reports abdominal pain and there is no evidence of cellulitis. This is likely related to chronic panic colitis. Continue pain control with when necessary Percocet and IV morphine. - Subjective Interval history: Feels better with improving dyspnea and leg and abdominal swelling; reports abdominal pain, no emesis, diarrhea or constipation; - Constitutional Vitals: Temp Pulse Resp BP Pulse Ox 98.1 F 92 16 115/71 94 05/13/17 11:41 05/13/17 11:41 05/13/17 11:41 05/13/17 11:41 05/13/17 11:41 General appearance: Present: A&O X 3, morbidly obese, answers questions appropriately - Respiratory Respiratory exam: Present: CTAB, wheezes (B/L basal expiratory wheezing). Absent: accessory muscle use, rales, rhonchi - Cardiovascular Cardiovascular exam: Present: RRR, +S1, +S2. Absent: diastolic murmur, gallop, rubs, systolic murmur - GI/Abdominal GI/Abdominal exam: Present: normal bowel sounds, soft (indurated pannus with some tenderness over lower abdomen), no peritoneal signs. Absent: distended, tenderness - Extremities Exam Extremities exam: Present: pedal edema (2+ pitting pedal edema B/L), warm, radial pulses palpable and symetrical. Absent: calf tenderness, cyanotic - Neurological Exam Neurological exam: Present: CN II-XII intact, oriented X3, no focal deficits. Absent: pronater drift, facial droop, speech deficit - Skin Skin exam: Present: dry, intact Internal Medicine: Result - Labs CBC & Chem 7: 05/13/17 04:26 05/13/17 04:26 Labs: Short CBC 05/13/17 Range/Units 04:26 WBC 2.1 L (4.3-11.1) K/mcL Hgb 9.3 L D (11.5-15.4) g/dL Hct 33.9 L (35.3-44.9) % Plt Count 174 (140-400) K/mcL Neutrophils # 1.4 L (1.6-8.9) K/mcL BMP 05/13/17 04:26 Sodium 139 Potassium 4.8 H Chloride 90 L Carbon Dioxide 42 H* BUN 18 Creatinine 1.04 Glucose 142 H Calcium 8.4 L - ABG Interpretation ABG results: ABG ABG pH 7.44 pH Units (7.32-7.45) 05/11/17 18:30 ABG pCO2 71 mmHg (35-45) H* 05/11/17 18:30 ABG pO2 74 mmHg (85-104) L 05/11/17 18:30 ABG O2 Saturation 95 % (95-98) 05/11/17 18:30 PT/INR, D-dimer PT 13.3 Seconds (9.4-12.1) H 05/11/17 17:33 Consult Discharge Plan - Plan Referrals: Mi Warren, NIGHT SHIFT SUPERVISOR [Primary Care Provider] - 05/20/17 9:30 am (Please follow up as schedule...)
[2017-05-13] MEDS ORDERED: *HR* Morphine 2 MG/ML SYRINGE IVP ONE (19:32)
[2017-05-14] MEDS: *HR* OxyCODONE Immed Rel 5 MG TABLET PO PRN ×2 (01:03→08:14)
[2017-05-14] MEDS: *HR* Morphine 2 MG/ML SYRINGE IVP PRN (03:05)
[2017-05-14] MEDS: Ipratropium/Albuterol Neb 3 ML IH SCH ×2 (04:02→10:39)
[2017-05-14 05:12] LABS: Hematocrit 32.6 % (35.3-44.9); Hemoglobin 9.2 g/dL (11.5-15.4); Immature Granulocytes % 0.8 % (0-4); Immature Platelets 7.7 % (1.1-6.1); Lymphocytes # 0.3 K/mcL (0.6-4.6); Lymphocytes % 10.8 %; Mean Corpuscular HGB Conc 28.2 g/dL (31.6-35.5); Mean Corpuscular Hemoglobin 27.7 pg (28.0-33.3); Mean Corpuscular Volume 98.2 fL (83.0-100.0); Mean Platelet Volume 11.2 fL (9.4-12.4); Monocytes # 0.2 K/mcL (0.0-1.3); Monocytes % 8.1 %; Neutrophils # 2.1 K/mcL (1.6-8.9); Platelet Count 155 K/mcL (140-400); Red Blood Count 3.32 M/mcL (3.82-4.97); Red Cell Distribution Width 18.5 % (11.5-14.5); Segmented Neutrophils % 80.3 %
[2017-05-14] MEDS: *HR* Heparin 5,000 UNIT/ML VIAL SQ SCH ×2 (05:14→13:40)
[2017-05-14] MEDS: MethylPREDNISolone 40 MG/ML VIAL IVP SCH (05:15)
[2017-05-14 05:29] LABS: BUN/Creatinine Ratio 19 (6-26); Blood Urea Nitrogen 23 mg/dL (7-20); Calcium 8.7 mg/dL (8.6-10.8); Chloride 88 mEq/L (98-109); Glucose 174 mg/dL (70-99); Osmolality,Calculated 290 (280-300); Potassium 4.9 mEq/L (3.5-4.5); Sodium 136 mEq/L (136-145); eGFR For African Americans > 60 (> 60); eGFR For Non-African Americans 50 (> 60)
[2017-05-14 05:31] LABS: Carbon Dioxide 41 mEq/L (19-29)
[2017-05-14 05:43] LABS: Anisocytosis 1+ (Not Present); Hypochromasia Present (Not Present); Stomatocytes 1+ (Not Present)
[2017-05-14 05:44] LABS: Platelet Estimate Normal (Normal); Polychromasia 1+ (Not Present)
[2017-05-14] MEDS: Insulin LISPRO 300 UNITS/3 ML VIAL SQ SCH ×2 (08:39→11:55)
[2017-05-14] MEDS: Gabapentin 100 MG CAPSULE PO SCH (08:40)
[2017-05-14] MEDS: Furosemide 40 MG/4 ML VIAL IVP SCH (08:40)
[2017-05-14 11:12] VITALS: BP 104/68
[2017-05-14] MEDS ORDERED: *HR* OxyCODONE Immed Rel 5 MG TABLET PO PRN (11:54)
--- NOTE | 2017-05-14 13:08 | Discharge Summary ---
Date of Encounter: 05/14/17 Time of Encounter: 11:50 - Discharge Diagnosis (1) Acute exacerbation of chronic obstructive airways disease Priority: Primary Status: Acute (2) Congestive heart failure Priority: Primary Status: Acute Qualifiers: Congestive heart failure type: combined Congestive heart failure chronicity : acute on chronic Qualified Code(s): I50.43 - Acute on chronic combined systolic (congestive) and diastolic (congestive) heart failure (3) Morbid obesity with BMI of 40.0-44.9, adult Priority: Secondary Status: Chronic (4) Moderate to severe pulmonary hypertension Priority: Secondary Status: Chronic (5) CKD (chronic kidney disease) stage 3, GFR 30-59 ml/min Priority: Secondary Status: Chronic (6) DM type 2 (diabetes mellitus, type 2) Priority: Secondary Status: Chronic Qualifiers: Diabetes mellitus complication status: with kidney complications Diabetes mellitus complication detail: with chronic kidney disease Diabetes mellitus shelter insulin use: without shelter use Chronic kidney disease stage: stage 3 (moderate) Qualified Code(s): E11.22 - Type 2 diabetes mellitus with diabetic chronic kidney disease; N18.3 - Chronic kidney disease, stage 3 ( moderate) (7) SMITA treated with BiPAP Priority: Secondary Status: Chronic (8) Hypothyroidism Priority: Secondary Status: Chronic Qualifiers: Hypothyroidism type: unspecified Qualified Code(s): E03.9 - Hypothyroidism , unspecified (9) Panniculitis Priority: Secondary Status: Chronic - Discharge Medications Prescriptions: Furosemide [Lasix] 40 mg PO DAILY #30 tablet Metoprolol [Lopressor] 12.5 mg PO BID #30 tablet predniSONE [PredniSONE] 40 mg PO DAILY #14 tablet Home Medications: Omeprazole [PriLOSEC] 20 mg PO DAILY 06/22/16 [History] Oxygen 3 l NS AD 06/22/16 [History] Albuterol Neb [Proventil Neb] 2.5 mg IH Q2H PRN #60 vial.neb 04/25/17 [Rx] Albuterol Sulfate [Ventolin Hfa] 18 gm IH Q4H PRN #1 hfa.aer.ad 04/25/17 [Rx] Allopurinol [Zyloprim 100 MG] 400 mg PO DAILY #120 tablet 04/25/17 [Rx] Fluticasone/Vilanterol [Breo Ellipta 100-25 Mcg INH] 1 each IH DAILY 30 Days [Rx] Metoprolol [Lopressor] 12.5 mg PO BID #30 tablet 04/25/17 [Rx] Montelukast [Singulair] 10 mg PO DAILY #30 tablet 04/25/17 [Rx] Theophylline Anhydrous [Theodur] 300 mg PO BID #60 tab.er.12h 04/25/17 [Rx] Tiotropium [Spiriva] 18 mcg IH DAILY #30 inh 04/25/17 [Rx] Cholecalciferol (D-3) [Vitamin D] 2,000 unit PO DAILY #60 tablet 05/06/17 [Rx] Sodium Polystyrene Sulfonate [Kayexalate] 30 gm PO DAILY 7 Days 05/06/17 [Rx] Furosemide [Lasix] 40 mg PO DAILY #30 tablet 05/14/17 [Rx] Gabapentin [Neurontin] 100 mg PO TID #30 capsule 05/14/17 [Rx] Metoprolol [Lopressor] 12.5 mg PO BID #30 tablet 05/14/17 [Rx] predniSONE [PredniSONE] 40 mg PO DAILY #14 tablet 05/14/17 [Rx] Allergies/Adverse Reactions: Allergies No Known Allergies Allergy (Verified 05/06/17 00:08) Procedures/tests Complete & Pending: Procedures Performed prior 72 hours Category Date Time Status EV echocardiogram Routine Y 05/12/17 08:08 Completed - Notes to Outpatient Provider Please check and follow BMP for serum creatinine; patient has significant pedal edema and has been restarted on Lasix PO 40mg daily; Date of admission: 05/12/17 00:57 Primary care physician: Mi Warren CNP Discharging clinician: Mai Grimes Anticipated date of discharge: 05/14/17 - Patient Status Disposition: Home, Self-Care Condition: Fair Functional capacity at discharge: independent ambulation Overall status at discharge: patient is progressing back to baseline - Discharge Instructions Instructions: Heart Failure (DC), Diabetes Mellitus Type 2 in Adults (DC), Chronic Obstructive Pulmonary Disease (DC) Follow Up With: Mi Warren CNP [Primary Care Provider] - 05/20/17 9:30 am (Please follow up as schedule...) - Diet and Activity Activity: resume usual activities as tolerated, wear oxygen at all times, other (use CPAP when asleep) Diet: diabetic diet, low fat, low cholesterol, low salt diet Hospital course: Ms. Corbett is a 46 year old female with multiple medical problems as above, who was admitted with shortness of breath, leg swelling and abdominal pain. Patient was noted to have acute exacerbation of COPD and CHF. She was started on scheduled inhaled bronchodilators along with IV steroids, supplemental oxygen and noninvasive positive pressure ventilation with BiPAP support. She was also given IV Lasix along with fluid restriction for leg swelling. Echocardiogram was done which showed mild LV systolic dysfunction with EF 45-50% , mild global LV hypokinesis, moderate right ventricular hypokinesis, moderate to severely dilated right ventricle, moderate right atrial dilatation, severe tricuspid regurgitation and pulmonary hypertension. Patient likely has significant cor pulmonale and right heart failure due to COPD and obstructive sleep apnea. These findings were explained to the patient and she was encouraged to be compliant with her medications, fluid restriction, use of CPAP at night and she verbalized understanding. Patient continued to request for narcotic pain medications while in the hospital for abdominal pain, which is likely secondary to chronic panic colitis as she is noted to be extremely obese with significant pannus. Patient was evaluated by physical therapy and deemed to have no needs at discharge. Patient is noted to have social and family issues with obtaining medications and keeping her doctor's appointments. director of creative services was involved and assisted patient with the same. She is now medically stable for discharge with outpatient follow-up. - Time Spent with Patient Total time spent providing and/or coordinating discharge services: Greater than 30 minutes (50 min) - Constitutional Vitals: Temp Pulse Resp BP Pulse Ox 98.1 F 90 16 104/68 92 05/14/17 11:09 05/14/17 11:09 05/14/17 11:09 05/14/17 11:09 05/14/17 11:09 General appearance: Present: A&O X 3, morbidly obese, answers questions appropriately - Respiratory Respiratory exam: Present: CTAB. Absent: accessory muscle use, rales, rhonchi, wheezes - Cardiovascular Cardiovascular exam: Present: RRR, +S1, +S2. Absent: diastolic murmur, gallop, rubs, systolic murmur
[2017-05-14] MEDS ORDERED: predniSONE 20 MG TABLET PO SCH (18:00)
[2017-05-15] MEDS ORDERED: Furosemide 40 MG TABLET PO SCH (09:00)
== END 2017-05-14 14:59 | disposition home or self-care (01) | DRG 194 ==
LOC: EMEROO 15:56 → 2ANU 15:56
PROVIDERS: ADMIT Nurse Practitioner Acute Care; ATTEND Internal Medicine

== ENCOUNTER 2017-05-29 04:24 | Inpatient (IN) ==
[2017-05-29] MEDS ORDERED: Acetaminophen 325 MG TABLET PO PRN (09:21)
[2017-05-29] MEDS ORDERED: Naloxone 0.4 MG/ML INJ IVP PRN (09:21)
--- NOTE | 2017-05-29 09:41 | Internal Med History&Physical ---
Date of Encounter: 05/29/17 Time of Encounter: 09:39 Assessment and Plan (1) Acute on chronic renal failure Current visit: Yes Status: Acute Patient with CKD, baseline Cr 1.1-1.2, presented to outside s/p fall. Assume renal failure is pre-renal, non-oliguric, secondary to pigment nephropathy as a result of fall However, patient also taking diuretics at home for CHF, associated metabolic alkalosis may have been from a combination of contraction alkalosis, and compensation for respiratory acidosis. I will send urine analysis, uric acid, lactic acid level. Aggressive fluid hydration with 2 L bolus stat, and maintenance fluid. Renal ultrasound ordered. Avoid nephrotoxins. Please Miller catheter and monitor intake and output strictly. We will repeat chemistry every 6-8 hours. Associated hyperkalemia, we will give Kayexalate. Nephrology will be consulted if patient does not improve. Qualifiers: Acute renal failure type: unspecified Chronic kidney disease stage: stage 3 (moderate) Qualified Code(s): N17.9 - Acute kidney failure, unspecified; N18.3 - Chronic kidney disease, stage 3 (moderate) (2) Elevated troponin Current visit: Yes Status: Acute Elevated troponin in the absence of chest pain, and no EKG changes, and in the setting of acute renal failure, acute on chronic respiratory failure, Troponin elevation may be secondary to demand, and elevated creatinine kinase. Patient had a recent echocardiogram done in the middle of April dysuria, which showed EF 40-45%, severe pulmonary hypertension. I will give aspirin, and Lipitor, follow CK No GRACE inhibitor or ARB due to BLANCA Continue metoprolol Consult cardiology (3) Hyperuricemia Current visit: Yes Status: Chronic Patient with chronic hyperuricemia and gout Check uric acid level. (4) Rhabdomyolysis Current visit: Yes Status: Suspected Suspected, check CK stat. Continue IV fluid hydration. Check urine analysis Check uric acid Check lactate level Consult nephrology when necessary. Qualifiers: Rhabdomyolysis type: traumatic Encounter type: initial encounter Qualified Code(s): T79.6XXA - Traumatic ischemia of muscle, initial encounter (5) Transaminitis Current visit: Yes Status: Acute Possibly secondary to rhabdomyolysis, cannot rule out as an effect of hypotension at time of presentation to referral center However at time of review patient was pressure had normalized. Check hepatitis panel Continue to monitor, no coagulopathy" (6) Moderate to severe pulmonary hypertension Current visit: Yes Status: Chronic Chronic, continue BiPAP at bedtime and when the patient is napping. (7) Chronic respiratory failure Current visit: Yes Status: Chronic Acute exacerbation, possibly secondary to fall at time of presentation Chest x-rays are unremarkable Continue BiPAP, nebs when necessary Qualifiers: Respiratory failure complication: hypoxia and hypercapnia Qualified Code(s) : J96.11 - Chronic respiratory failure with hypoxia; J96.12 - Chronic respiratory failure with hypercapnia (8) Congestive heart failure Current visit: Yes Status: Chronic Systolic heart failure Patient with pedal edema However patient currently volume contracted and in AKA, will continue IV fluids for now Hold Lasix for now, continue beta blockers. no grace inhibitors because of AKA Qualifiers: Congestive heart failure type: systolic Congestive heart failure chronicity : chronic Qualified Code(s): I50.22 - Chronic systolic (congestive) heart failure (9) DM type 2 (diabetes mellitus, type 2) Current visit: Yes Status: Chronic FS ACHS ADA diet Sliding scale insulin Qualifiers: Diabetes mellitus complication status: with kidney complications Diabetes mellitus complication detail: with chronic kidney disease Diabetes mellitus continuous churn buttermaker insulin use: without fpc use Chronic kidney disease stage: stage 3 (moderate) Qualified Code(s): E11.22 - Type 2 diabetes mellitus with diabetic chronic kidney disease; N18.3 - Chronic kidney disease, stage 3 ( moderate) (10) SMITA treated with BiPAP Current visit: Yes Status: Chronic Ensure BiPAP at night (11) Vitamin D deficiency Current visit: Yes Status: Chronic Resume home meds (12) Morbid obesity with BMI of 50.0-59.9, adult Current visit: Yes Status: Chronic (13) Fall Current visit: Yes Status: Acute Fall precautions, physical therapy and occupational therapy consult. Knee Xray shows some effusion on the r knee, possibly traumatic NO fractures Qualifiers: Encounter type: initial encounter Qualified Code(s): W19.XXXA - Unspecified fall, initial encounter Internal Medicine - H&P: HPI Chief complaint: Fall Admitted From: Home History of present illness: Ms. Corbett is a 46 year old female with PMH of CHFrEF, Pulmonary HTN (Moderate- Severe), Morbid obesity, chronic kidney disease stage III, diabetes mellitus type 2, obstructive sleep apnea, morbid obesity with chronic paniculitis chronic hypercapnic and hypoxic respiratory failure, BiPAP and oxygen dependent at home, recently discharged a few weeks ago after management of CHF exacerbation active tobacco use, and COPD. Patient was in her usual state of health until the early hours of this morning when she fell on her way from the bathroom. She presented to an outside ER facility where patient was found to be in acute kidney injury, hypotensive and in acute on chronic respiratory failure, she was referred to [facility] for further management. On evaluation at bedside, patient is alert and awake and reports a history of mechanical fall without dizziness without preceding chest pain or diaphoresis. At the time review her only complaint is pain on the right knee. She denies recent changes in her urinary output, She has been compliant with her medications, she denies fever, chills, mildly, or decrease in her oral intake. She denies nausea, vomiting, or diarrhea. Workup at the referral center reveals acute kidney injury with hyperkalemia, hemoconcentration with a normal hemoglobin and normal white count. EKG with sinus tachycardia, right bundle branch block. Arterial blood gas revealed a pH of 7.3, hypercapnia with PCO2 87, hypoxia with PO2 56, Lactate was 2.2. NO extremity imaging was done At time of review, she was lethargic but responsive, HR 103, BP 104/74, O2 92-94 % on 60% FiO2 on BIPAP, Past Med Surg Social Fam HX - Past Medical History Medical history: arthritis, asthma, cardiomyopathy, CHF (Systolic ejection fraction 40%), COPD (Oxygen dependent 3 L at home), diabetes (Not insulin- dependent), GERD, hypertension, osteoporosis, peripheral artery disease, venous stasis, other Psychiatric history: anxiety, depression, other (Leukopenia, morbid obesity, pulmonary hypertension, chronic respiratory failure, chronic kidney disease stage III, obstructive sleep apnea on BiPAP, hypothyroidism, neuropathy, cardiomyopathy, peripheral artery disease, abdominal wall cellulitis, hyperkalemia, irritable bowel syndrome, gout) - Past Surgical History Surgical History: herniorrhaphy, other - Social History Smoking Status: Former smoker Smokeless Tobacco Status: No Alcohol use: none Drug use: marijuana - Family History Son Adopted: No Family Member Ethnicity: Non- Living Status: Still Living Hx Family Cardiac Disorders: Yes Hx Family Respiratory Disorders: Yes Hx Family Cancer: No Hx Family GI Disorders: No Hx Family Endocrine Disorder: Yes Hx Family Neuromuscular Disorders: No Hx Family Neurologic Disorders: No Hx Family HEENT Disorders: No Hx Family Autoimmune Disorders: No Father Living Status: Hx Family Cardiac Disorders: Yes (enlarged heart) Hx Family Respiratory Disorders: (Emphysema) Hx Family Cancer: Yes (Lung and rectal cancer) Hx Family Endocrine Disorder: Yes (diabetic) Mother Living Status: Hx Family Cardiac Disorders: Yes (stents) Hx Family GI Disorders: Yes (GI bleed) Hx Family Endocrine Disorder: Yes (diabetic) Internal Medicine - H&P: Meds Omeprazole [PriLOSEC] 20 mg PO DAILY 06/22/16 [History] Oxygen 3 l NS AD 06/22/16 [History] Albuterol Neb [Proventil Neb] 2.5 mg IH Q2H PRN #60 vial.neb 04/25/17 [Rx] Albuterol Sulfate [Ventolin Hfa] 18 gm IH Q4H PRN #1 hfa.aer.ad 04/25/17 [Rx] Allopurinol [Zyloprim 100 MG] 400 mg PO DAILY #120 tablet 04/25/17 [Rx] Fluticasone/Vilanterol [Breo Ellipta 100-25 Mcg INH] 1 each IH DAILY 30 Days [Rx] Metoprolol [Lopressor] 12.5 mg PO BID #30 tablet 04/25/17 [Rx] Montelukast [Singulair] 10 mg PO DAILY #30 tablet 04/25/17 [Rx] Theophylline Anhydrous [Theodur] 300 mg PO BID #60 tab.er.12h 04/25/17 [Rx] Tiotropium [Spiriva] 18 mcg IH DAILY #30 inh 04/25/17 [Rx] Cholecalciferol (D-3) [Vitamin D] 2,000 unit PO DAILY #60 tablet 05/06/17 [Rx] Sodium Polystyrene Sulfonate [Kayexalate] 30 gm PO DAILY 7 Days 05/06/17 [Rx] Furosemide [Lasix] 40 mg PO DAILY #30 tablet 05/14/17 [Rx] Gabapentin [Neurontin] 100 mg PO TID #30 capsule 05/14/17 [Rx] Metoprolol [Lopressor] 12.5 mg PO BID #30 tablet 05/14/17 [Rx] predniSONE [PredniSONE] 40 mg PO DAILY #14 tablet 05/14/17 [Rx] Allergies No Known Allergies Allergy (Verified 05/06/17 00:08) All Systems PM: A 10-system review of systems was performed and is negative for pertinent findings except as documented above in the HPI. - Constitutional Constitutional: as per HPI - EENT Eyes: as per HPI Ears: as per HPI Nose, mouth and throat: as per HPI - Cardiovascular Cardiovascular ROS IM: as per HPI - Respiratory Respiratory: as per HPI - Gastrointestinal Gastrointestinal: as per HPI - Genitourinary Genitourinary: as per HPI - Musculoskeletal Musculoskeletal ROS IM: as per HPI - Integumentary Integumentary IM: as per HPI - Neurological Neurological ROS: as per HPI - Hematologic/Lymphatic Hematologic/Lymphatic: as per HPI - Constitutional Vitals: Resp BP Pulse Ox 23 85/58 89 05/29/17 07:34 05/29/17 07:34 05/29/17 07:34 General appearance: Present: mild distress, A&O X 3, morbidly obese - Head Head exam: Present: atraumatic, normocephalic - Eye Eye exam: Present: PERRL, conjuntiva pink, sclera anicteric Pupils: Present: PERRL - Neck Neck exam general surgery: Present: supple, trachea midline. Absent: lymphadenopathy - Respiratory Respiratory exam: Present: CTAB. Absent: accessory muscle use, rales, rhonchi, wheezes - Cardiovascular Cardiovascular exam: Present: +S1, +S2, tachycardia. Absent: diastolic murmur, gallop, JVD, rubs, systolic murmur - GI/Abdominal GI/Abdominal exam: Present: distended (Morbidly obese abdomen with huge pannicula. Chronic dermatitis noted, no obvious cellulitis or differential warmth), normal bowel sounds, soft, no peritoneal signs. Absent: tenderness - Extremities Exam Extremities exam: Present: pedal edema (2+ piting pedal edema bilaterally), warm , radial pulses palpable and symetrical. Absent: calf tenderness, cyanotic - Neurological Exam Neurological exam: Present: alert, CN II-XII intact, oriented X3, no focal deficits. Absent: pronater drift, facial droop, speech deficit - Skin Skin exam: Present: dry. Absent: rash Internal Med - H&P Results - Labs CBC & Chem 7: 05/29/17 09:53
[2017-05-29 10:16] LABS: Albumin 2.9 g/dL (3.5-5.0); Albumin/Globulin Ratio 0.9 (1.1-2.2); Bilirubin,Total 0.8 mg/dL (0.2-1.2); Calcium 9.1 mg/dL (8.6-10.8); Globulin 3.1 g/dL (2.4-3.5); Potassium 5.6 mEq/L (3.5-4.5)
[2017-05-29] MEDS ORDERED: 0.9 % Sodium Chloride 1,000 ML IVC SCH (10:30)
[2017-05-29] MEDS: Cholecalciferol (D-3) 1,000 UNIT TABLET PO SCH (10:45)
[2017-05-29] MEDS: Aspirin 81 MG TAB.CHEW PO SCH (10:45)
--- NOTE | 2017-05-29 11:50 | Cardiology Consult Note ---
Date of Encounter: 05/29/17 Time of Encounter: 11:46 Assessment and Plan (1) Elevated troponin Current Visit: Yes Status: Acute Mildly elevated troponin in setting of morbid obesity with chronic respiratory insufficiency, BLANCA. No acute ECG changes. Suspect demand ischemia. Recommend serial troponin/ecgs. REpeat limited echocardiogram with Definity. If no significant change in troponin, change in LV function, or development of ECG changes/chest pain - then recommend medical therapy only. Further recommendations to follow. Discussion w patient/family: The assessment and plan as outlined above was discussed with the patient and/or family members who expressed understanding and agreement. All questions were answered. Thank you for involving us in the care of your patient. Please call with any questions. History of Present Illness Consult date: 05/29/17 Requesting physician: Ubaldo Smith Consult reason: Elevated troponin Chief complaint: fall History of present illness: Ms. Corbett is a 46 year old female with multiple comorbidities: morbid obesity, HFrEF (LVEF 45%), pPHTN, CKD, DM II, SMITA, supplemental oxygen dependant. Reportedly fell - unable to get up. Labs demonstrated BLANCA. Upon my evaluation, she is on BIPAP. Very morbidly obese and chronically ill appearing. No current chest pain. K 5.6 Cr 2.56 AST/ALT 224/198 Tn 0.41. ECG - sinus tachycardia, irbbb Past Med Surg Social Fam HX - Past Medical History Medical history: arthritis, asthma, cardiomyopathy, CHF (Systolic ejection fraction 40%), COPD (Oxygen dependent 3 L at home), diabetes (Not insulin- dependent), GERD, hypertension, osteoporosis, peripheral artery disease, venous stasis, other Psychiatric history: anxiety, depression, other (Leukopenia, morbid obesity, pulmonary hypertension, chronic respiratory failure, chronic kidney disease stage III, obstructive sleep apnea on BiPAP, hypothyroidism, neuropathy, cardiomyopathy, peripheral artery disease, abdominal wall cellulitis, hyperkalemia, irritable bowel syndrome, gout) - Past Surgical History Surgical History: herniorrhaphy, other - Social History Smoking Status: Former smoker Smokeless Tobacco Status: No Alcohol use: none Drug use: marijuana - Family History Son Adopted: No Family Member Ethnicity: Non- Living Status: Still Living Hx Family Cardiac Disorders: Yes Hx Family Respiratory Disorders: Yes Hx Family Cancer: No Hx Family GI Disorders: No Hx Family Endocrine Disorder: Yes Hx Family Neuromuscular Disorders: No Hx Family Neurologic Disorders: No Hx Family HEENT Disorders: No Hx Family Autoimmune Disorders: No Father Living Status: Hx Family Cardiac Disorders: Yes (enlarged heart) Hx Family Respiratory Disorders: (Emphysema) Hx Family Cancer: Yes (Lung and rectal cancer) Hx Family Endocrine Disorder: Yes (diabetic) Mother Living Status: Hx Family Cardiac Disorders: Yes (stents) Hx Family GI Disorders: Yes (GI bleed) Hx Family Endocrine Disorder: Yes (diabetic) Medications and Allergies Omeprazole [PriLOSEC] 20 mg PO DAILY 06/22/16 [History] Oxygen 3 l NS AD 06/22/16 [History] Albuterol Neb [Proventil Neb] 2.5 mg IH Q2H PRN #60 vial.neb 04/25/17 [Rx] Albuterol Sulfate [Ventolin Hfa] 18 gm IH Q4H PRN #1 hfa.aer.ad 04/25/17 [Rx] Allopurinol [Zyloprim 100 MG] 400 mg PO DAILY #120 tablet 04/25/17 [Rx] Fluticasone/Vilanterol [Breo Ellipta 100-25 Mcg INH] 1 each IH DAILY 30 Days [Rx] Metoprolol [Lopressor] 12.5 mg PO BID #30 tablet 04/25/17 [Rx] Montelukast [Singulair] 10 mg PO DAILY #30 tablet 04/25/17 [Rx] Theophylline Anhydrous [Theodur] 300 mg PO BID #60 tab.er.12h 04/25/17 [Rx] Tiotropium [Spiriva] 18 mcg IH DAILY #30 inh 04/25/17 [Rx] Cholecalciferol (D-3) [Vitamin D] 2,000 unit PO DAILY #60 tablet 05/06/17 [Rx] Sodium Polystyrene Sulfonate [Kayexalate] 30 gm PO DAILY 7 Days 05/06/17 [Rx] Furosemide [Lasix] 40 mg PO DAILY #30 tablet 05/14/17 [Rx] Gabapentin [Neurontin] 100 mg PO TID #30 capsule 05/14/17 [Rx] Metoprolol [Lopressor] 12.5 mg PO BID #30 tablet 05/14/17 [Rx] predniSONE [PredniSONE] 40 mg PO DAILY #14 tablet 05/14/17 [Rx] Allergies No Known Allergies Allergy (Verified 05/06/17 00:08) ROS unobtainable: other (Difficult to obtain, patient currently on bipap and difficult to understand) All Systems Review: A 10-system review of systems was performed and is negative for pertinent findings except as documented above in the HPI. Physical Examination Vital Signs, Last 4 Hours Temp Pulse Resp BP Pulse Ox 05/29/17 11:08 98.4 F 112 24 104/74 89 General: Other (Chronically ill appearing, morbidly obese, bipap) HEENT: Atraumatic, Normocephaly Neck: Other (Unable to detect jvd/bruits due to neck size) Cardiac: Other (Distant, unable to auscultate for murmurs. Tachycardia noted. ) Neuro: Other (Somnolent, but wakes up and tries to answer questions) Abdomen: Soft, Other (obese) Musculoskeletal: No Chest Wall Tenderness Extremities: Other (Lymphadema) Results 05/29/17 09:53 Lab Results 05/29/17 05/29/17 09:53 09:53 Sodium 141 Potassium 5.6 H Chloride 92 L Carbon Dioxide 41 H* BUN 57 H Creatinine 2.56 H Glucose 256 H Calcium 9.1 Total Bilirubin 0.8 AST 224 H ALT 198 H Alkaline Phosphatase 99 Troponin I 0.41 H* - Imaging and Cardiology Echo: report reviewed - EKG Interpretation EKG results cardiology: personally reviewed Consult Discharge Plan - Plan Referrals: Sunny Stanley MD [Primary Care Provider] -
[2017-05-29] MEDS: 0.9 % Sodium Chloride 1,000 ML IVC SCH ×2 (15:31→18:00)
[2017-05-29] MEDS: Gabapentin 100 MG CAPSULE PO SCH ×2 (15:31→20:41)
[2017-05-29] MEDS: *HR* Heparin 5,000 UNIT/ML VIAL SQ SCH ×2 (15:31→23:18)
[2017-05-29] MEDS ORDERED: *HR* Heparin 5,000 UNIT/ML VIAL SQ SCH (16:00)
[2017-05-29 16:33] LABS: Calcium 9.3 mg/dL (8.6-10.8); Potassium 5.9 mEq/L (3.5-4.5); Uric Acid 5.5 mg/dL (2.6-6.0)
[2017-05-29] MEDS: Ipratropium/Albuterol Neb 3 ML IH PRN (16:44)
[2017-05-29] MEDS ORDERED: Dextrose Gel 15 GM PO PRN ×2 (17:21)
[2017-05-29] MEDS ORDERED: *HR* Dextrose 50 % in Water (Syg) 50 ML SYRINGE IVP PRN (17:21)
[2017-05-29] MEDS ORDERED: D5% in Water 1,000 ML IVC PRN (17:21)
[2017-05-29] MEDS ORDERED: Calcium Gluconate 1,000 MG in D5% in Water 100 ML IVPB ONE (17:23)
[2017-05-29] MEDS ORDERED: Insulin Regular, Human 100 UNIT/ML IV ONE (17:24)
[2017-05-29] MEDS: *HR* HYDROcodone/Acet 5/325 mg TABLET PO PRN (17:39)
[2017-05-29] MEDS: Ondansetron 4 MG/2 ML VIAL IVP PRN (17:43)
[2017-05-29] MEDS ORDERED: Insulin Human Regular 4 UNIT in 0.9 % Sodium Chloride 10 ML IV ONE (18:00)
[2017-05-29 18:22] LABS: Bilirubin,Urine Small (Negative); Blood,Urine Negative (Negative); Color,Urine Dark Yellow (Yellow); Glucose,Urine (UA) Normal (Normal); Ketones,Urine Trace mg/dL (Negative); Leukocyte Esterase,Urine Negative (Negative); Nitrite,Urine Negative (Negative); Protein,Urine 30 mg/dL (Neg-Trace); Specific Gravity,Urine 1.026 (1.010-1.025); Urobilinogen,Urine Normal (Normal)
[2017-05-29 18:25] LABS: Hyaline Casts,Urine Moderate per lpf (None-Few); RBC,Urine 0-3 per hpf (0-3); Squamous Epithelial Cell,Urine Many per lpf (None-Few); WBC,Urine 15-30 per hpf (0-3)
[2017-05-29] MEDS: Insulin DETEMIR 100 UNIT/ML X5UNITS SQ SCH (18:26)
[2017-05-29 18:36] LABS: Clarity,Urine Hazy (Clear)
[2017-05-29 18:44] LABS: Amorphous Sediment,Urine Moderate (Few); Bacteria,Urine Moderate per hpf (None-Few); Renal Epithelial Cells,Urine Few per hpf (None-Few)
[2017-05-29] MEDS: Insulin LISPRO 300 UNITS/3 ML VIAL SQ SCH (20:41)
[2017-05-30 03:16] LABS: Hemoglobin 11.1 g/dL (11.5-15.4)
[2017-05-30 03:25] LABS: Hematocrit 41.5 % (35.3-44.9); Immature Granulocytes % 0.7 % (0-4); Lymphocytes # 0.4 K/mcL (0.6-4.6); Lymphocytes % 6.5 %; Mean Corpuscular HGB Conc 26.7 g/dL (31.6-35.5); Mean Corpuscular Hemoglobin 28.2 pg (28.0-33.3); Mean Corpuscular Volume 105.3 fL (83.0-100.0); Mean Platelet Volume 12.4 fL (9.4-12.4); Monocytes # 0.4 K/mcL (0.0-1.3); Monocytes % 6.5 %; Neutrophils # 5.2 K/mcL (1.6-8.9); Platelet Count 145 K/mcL (140-400); Red Blood Count 3.94 M/mcL (3.82-4.97); Red Cell Distribution Width 20.4 % (11.5-14.5); Segmented Neutrophils % 86.3 %
[2017-05-30 03:31] LABS: Albumin/Globulin Ratio 0.9 (1.1-2.2); Bilirubin,Direct 0.3 mg/dL (0.0-0.5); Bilirubin,Indirect 0.4 mg/dL (0.0-1.2); Bilirubin,Total 0.7 mg/dL (0.2-1.2); Globulin 3.2 g/dL (2.4-3.5); Magnesium 2.1 mg/dL (1.6-2.6); Phosphorous 6.3 mg/dL (2.3-4.7); Total Protein 6.2 g/dL (6.0-8.3)
[2017-05-30 03:51] LABS: Hepatitis B Surface Antigen Nonreactive (Nonreactive)
[2017-05-30 04:09] LABS: Hypochromasia Present (Not Present)
[2017-05-30 04:10] LABS: Anisocytosis 1+ (Not Present); Basophilic Stippling 1+ (Not Present); Platelet Estimate Normal (Normal); Polychromasia 1+ (Not Present)
[2017-05-30] MEDS: *HR* HYDROmorphone (PF) 1 MG/ML SYRINGE IVP PRN ×2 (05:03→11:43)
[2017-05-30] MEDS: *HR* Heparin 5,000 UNIT/ML VIAL SQ SCH ×3 (05:04→22:12)
[2017-05-30] MEDS ORDERED: Perflutren Lipid Microsphere 1.3 ML in 0.9 % Sodium Chloride 8.7 ML IVP ONE (07:39)
[2017-05-30] MEDS: Cholecalciferol (D-3) 1,000 UNIT TABLET PO SCH (07:55)
[2017-05-30] MEDS: Gabapentin 100 MG CAPSULE PO SCH ×3 (07:55→19:46)
[2017-05-30] MEDS: *HR* HYDROcodone/Acet 5/325 mg TABLET PO PRN (07:56)
[2017-05-30] MEDS: Aspirin 81 MG TAB.CHEW PO SCH (07:57)
[2017-05-30] MEDS: Insulin LISPRO 300 UNITS/3 ML VIAL SQ SCH ×7 (08:04→19:33)
--- NOTE | 2017-05-30 09:37 | Cardiology Progress Note ---
Date of Encounter: 05/30/17 Time of Encounter: 09:32 Assessment and Plan (1) Elevated troponin Current Visit: Yes Status: Inactive Mildly elevated troponin in setting of morbid obesity with chronic respiratory insufficiency, BLANCA. No acute ECG changes. Suspect demand ischemia. Presentation is not c/w ACS. Limited echocardiogram reviewed at bedside - LV function remains normal, RV enlargment/hypokinesis remains. No further recommendations re: troponin elevation. (2) Cor pulmonale Current Visit: Yes Status: Acute Patient presents with acute on chronic respiratory insufficiency. Suspect significant pulmonary hypertension as a result of morbid obesity. TTEs demonstrate evidence of cor pulmonale - enlargement and failure of right heart as a response to pulmonary HTN. Transaminitis possibly related to passive congestion. Stop atorvastatin for now. Recommend ongoing supplemental oxygen/BIPAP, diuretics, and afterload reduction (as BP tolerates). Her prognosis is poor. Weight loss is imperative. Tertiary center referral should be considered as inpatient or outpatient (if condition improves). (3) BLANCA (acute kidney injury) Current Visit: Yes Status: Acute BLANCA with associated hyperkalemia. Your medical managment. Discussion w patient/family: The assessment and plan as outlined above was discussed with the patient and/or family members who expressed understanding and agreement. All questions were answered. Thank you for involving us in the care of your patient. Please call with any questions. Subjective Principal diagnosis: Respiratory insufficiency Interval history: Overall, condition largely unchanged. Remains on BIPAP. No new symptoms reported. BMP not repeated today - yesterday, K 5.6, Cr 2.67. LFTs remain elevated. U/A moderate bacteria, culture pending. Objective Vital Signs, Last 4 Hours Temp Pulse Resp BP Pulse Ox 05/30/17 07:42 106 05/30/17 07:28 98.1 F 106 15 85/62 98 05/30/17 06:02 98.5 F 112 16 84/51 94 General: Other (On BIPAP, but conversant) HEENT: Atraumatic, Normocephaly, Mucus Membranes Moist Neck: Other (Diffulc to ) Cardiac: Other (Regular distant, no obvious murmurs) Lungs: Other (Shallow. ) Abdomen: Soft, Non-Tender, Other (morbidly obese) Extremities: Other (Bilateral chronic edema) Results 05/30/17 03:06 05/29/17 19:57 Lab Results 05/29/17 05/29/17 05/29/17 09:53 09:53 15:53 WBC Hgb Hct Plt Count Sodium 141 Potassium 5.6 H Chloride 92 L Carbon Dioxide 41 H* BUN 57 H Creatinine 2.56 H Glucose 256 H Calcium 9.1 Magnesium Total Bilirubin 0.8 AST 224 H ALT 198 H Alkaline Phosphatase 99 Troponin I 0.41 H* 0.36 H* 05/29/17 05/29/17 05/30/17 15:53 19:57 03:06 WBC 6.0 Hgb 11.1 L Hct 41.5 Plt Count 145 Sodium 143 Potassium 5.9 H 5.6 H Chloride 93 L Carbon Dioxide 43 H* BUN 60 H Creatinine 2.67 H Glucose 260 H Calcium 9.3 Magnesium Total Bilirubin AST ALT Alkaline Phosphatase Troponin I 05/30/17 03:06 WBC Hgb Hct Plt Count Sodium Potassium Chloride Carbon Dioxide BUN Creatinine Glucose Calcium Magnesium 2.1 Total Bilirubin 0.7 AST 127 H ALT 200 H Alkaline Phosphatase 102 Troponin I - Imaging and Cardiology Echo: report reviewed - VTE Documentation of Mechanical Device: Intermittent pneumatic compression device Consult Discharge Plan - Plan Referrals: Sunny Stanley MD [Primary Care Provider] -
[2017-05-30] MEDS: Ipratropium/Albuterol Neb 3 ML IH PRN ×2 (11:07→20:21)
[2017-05-30] MEDS: Furosemide 40 MG/4 ML VIAL IVP SCH (14:31)
--- NOTE | 2017-05-30 14:39 | Internal Med Progress Note ---
Date of Encounter: 05/30/17 Time of Encounter: 14:07 - Assessment and plan (1) Acute on chronic renal failure Current Visit: Yes Status: Acute Assessment and plan: most likely from the fall and dehydration. has BLANCA on CKD> will continue to monitor the urine output, monitor chem7. CK is not too impressive. Qualifiers: Acute renal failure type: unspecified Chronic kidney disease stage: stage 3 (moderate) Qualified Code(s): N17.9 - Acute kidney failure, unspecified; N18.3 - Chronic kidney disease, stage 3 (moderate) (2) Morbid obesity with BMI of 40.0-44.9, adult Current Visit: Yes Status: Chronic (3) Chronic respiratory failure Current Visit: Yes Status: Chronic Assessment and plan: patient has chronic respiratory failure most likely 2/2 severe pulmonary HTN, obesity and SMITA. needs BIPAP prn and is on 02 at home at baseline will continue high flow o2 to maintain o2 >88%. have weaned off BIPAP and is currently on high flow 02, not in acute respiratory distress doubt that there is anything acute process going on. Qualifiers: Respiratory failure complication: hypoxia and hypercapnia Qualified Code(s) : J96.11 - Chronic respiratory failure with hypoxia; J96.12 - Chronic respiratory failure with hypercapnia (4) DM type 2 (diabetes mellitus, type 2) Current Visit: Yes Status: Chronic Qualifiers: Diabetes mellitus complication status: with kidney complications Diabetes mellitus complication detail: with chronic kidney disease Diabetes mellitus joint terminal attack controller insulin use: without fdc use Chronic kidney disease stage: stage 3 (moderate) Qualified Code(s): E11.22 - Type 2 diabetes mellitus with diabetic chronic kidney disease; N18.3 - Chronic kidney disease, stage 3 ( moderate) (5) SMITA treated with BiPAP Current Visit: Yes Status: Chronic Assessment and plan: will continue the bIPAP prn at night. (6) Secondary pulmonary hypertension Current Visit: No Status: Chronic (7) Fall Current Visit: Yes Status: Acute Assessment and plan: brought in after fall. will consult Pt/OT and may need inpt. rehab at [place]. Qualifiers: Encounter type: initial encounter Qualified Code(s): W19.XXXA - Unspecified fall, initial encounter - Subjective Interval history: bob seen at the bedside, came s/p fall at home, appears tearful and reports that she is not well taken care of at home. she says she has not been able to walk that well with the b/l lower leg swelling. appears alert and awake and is on o2 nasal cannula and BIPAP prn at night at home she denies chest pain or sob. - Constitutional Vitals: Temp Pulse Resp BP Pulse Ox 97.8 F 110 22 80/58 91 05/30/17 11:14 05/30/17 11:14 05/30/17 11:14 05/30/17 11:14 05/30/17 11:14 General appearance: Present: A&O X 3, morbidly obese Exam: neck- supple chest- b/l clear, decreased breath sounds CVS-s1 and s2, no m/r/g abdomen-soft, non tender, bs are present ext- b/l severe lower leg pitting edema neuro- no focal neuro deficits, alert and awake Internal Medicine: Result - Labs CBC & Chem 7: 05/30/17 03:06 05/29/17 19:57 Labs: Short CBC 05/30/17 Range/Units 03:06 WBC 6.0 (4.3-11.1) K/mcL Hgb 11.1 L (11.5-15.4) g/dL Hct 41.5 (35.3-44.9) % Plt Count 145 (140-400) K/mcL Neutrophils # 5.2 (1.6-8.9) K/mcL BMP 05/29/17 05/29/17 15:53 19:57 Sodium 143 Potassium 5.9 H 5.6 H Chloride 93 L Carbon Dioxide 43 H* BUN 60 H Creatinine 2.67 H Glucose 260 H Calcium 9.3 Cardiac Enzymes 05/29/17 Range/Units 15:53 Troponin I 0.36 H* (0-0.03) ng/mL Liver Function 05/30/17 Range/Units 03:06 Total Bilirubin 0.7 (0.2-1.2) mg/dL Direct Bilirubin 0.3 (0.0-0.5) mg/dL AST 127 H (5-34) Units/L ALT 200 H (0-55) Units/L Alkaline Phosphatase 102 (38-126) Units/L Albumin 3.0 L (3.5-5.0) g/dL Urine 05/29/17 Range/Units 18:15 Urine Color Dark Yellow (Yellow) Urine Clarity Hazy A (Clear) Urine pH 5.0 (5.0-8.0) pH Units Ur Specific Hawkins 1.026 H (1.010-1.025) Urine Protein 30 H (Neg-Trace) mg/dL Urine Glucose (UA) Normal (Normal) mg/dL - Impressions Impressions Retroperitoneum Ultrasound 05/29/17 12:23 IMPRESSION: No evidence of hydronephrosis. Perihepatic ascites. 1.2 cm left renal cyst. D/ / vAinash Laboy MD / Avinash Laboy MD Interpreting Provider: Avinash Laboy MD - VTE Documentation of Mechanical Device: Intermittent pneumatic compression device Consult Discharge Plan - Plan Referrals: Sunny Stanley MD [Primary Care Provider] -
[2017-05-30 14:45] LABS: Calcium 8.9 mg/dL (8.6-10.8); Potassium 5.5 mEq/L (3.5-4.5)
[2017-05-30] MEDS: Insulin DETEMIR 100 UNIT/ML X5UNITS SQ SCH (19:32)
[2017-05-30] MEDS: Ondansetron 4 MG/2 ML VIAL IVP PRN (22:49)
[2017-05-30] MEDS ORDERED: 0.9 % Sodium Chloride 250 ML ONE (23:48)
[2017-05-31] MEDS ORDERED: 0.9 % Sodium Chloride 250 ML IVC ONE (00:08)
--- NOTE | 2017-05-31 01:09 | Event Note ---
Date of Encounter: 05/31/17 Time of Encounter: 01:08 On-call Hospitalist Note; I was paged that the pt is hypotensive. I have reviewed the vitals - Pt had SBP in the 80s since 05/29/17. BP is trending down to SBP in the 70s. Reviewed her echo result:Severely dilated RV with moderate hypokinesis and flattened interventricular septum. LVEF 60%. O/E: Pt is on BiPAP, arousable. Not able to understand her speech. B/L lower extremity edema. BP: 65/35. A/P: severe cor-pulmonale: and hypotension. Normal saline 250 ml bolus was given without much improvement of the BP. I have discussed with furnace cooler Dr Cannon, who recommends IV fluids as the first line and if not improving, to start norepinephrine drip. Her prognosis is poor. Dr Cannon / cardiology team will discuss with family and consider transfer to tertiary care center.
[2017-05-31] MEDS ORDERED: 0.9 % Sodium Chloride 500 ML IVC ONE ×3 (01:11→04:53)
[2017-05-31] MEDS ORDERED: 0.9 % Sodium Chloride 500 ML ONE ×2 (01:14→14:24)
[2017-05-31] MEDS: *HR* Heparin 5,000 UNIT/ML VIAL SQ SCH ×3 (06:21→22:16)
[2017-05-31] MEDS ORDERED: 0.9 % Sodium Chloride 1,000 ML IVC SCH (06:30)
[2017-05-31] MEDS: 0.9 % Sodium Chloride 1,000 ML IVC SCH ×2 (06:41→19:46)
[2017-05-31 07:05] LABS: Hematocrit 38.8 % (35.3-44.9); Mean Corpuscular Volume 107.2 fL (83.0-100.0); Red Blood Count 3.62 M/mcL (3.82-4.97)
[2017-05-31 07:06] LABS: Hemoglobin 10.6 g/dL (11.5-15.4); Mean Corpuscular HGB Conc 27.3 g/dL (31.6-35.5); Mean Corpuscular Hemoglobin 29.3 pg (28.0-33.3); Mean Platelet Volume 12.4 fL (9.4-12.4); Platelet Count 121 K/mcL (140-400); Red Cell Distribution Width 20.5 % (11.5-14.5)
[2017-05-31 07:12] LABS: INR 1.1; Prothrombin Time 11.8 Seconds (9.4-12.1)
[2017-05-31 07:17] LABS: Bilirubin,Total 0.6 mg/dL (0.2-1.2); Calcium 8.6 mg/dL (8.6-10.8); Globulin 2.9 g/dL (2.4-3.5); Potassium 4.9 mEq/L (3.5-4.5); Total Protein 5.9 g/dL (6.0-8.3)
[2017-05-31] MEDS ORDERED: *HR* Etomidate 20 MG/10 ML AMPUL IVP ONE (07:50)
[2017-05-31] MEDS ORDERED: *HR* Midazolam HCl 5 MG/5 ML VIAL IVP ONE (07:50)
[2017-05-31] MEDS: Ipratropium/Albuterol Neb 3 ML IH PRN (07:57)
[2017-05-31] MEDS: Tiotropium 18 MCG inhalation IH SCH (07:57)
--- NOTE | 2017-05-31 08:07 | Internal Med Progress Note ---
Date of Encounter: 05/31/17 Time of Encounter: 08:04 - Assessment and plan (1) Acute on chronic renal failure Current Visit: Yes Status: Acute Assessment and plan: most likely from the fall and dehydration, also has severe pulmonary HTN with cor pulmonale and hypotension. worsening creatinine with decreased urine output despite IVF. will continue to monitor the urine output, monitor chem7. CK is not too impressive, renal consult. Qualifiers: Acute renal failure type: unspecified Chronic kidney disease stage: stage 3 (moderate) Qualified Code(s): N17.9 - Acute kidney failure, unspecified; N18.3 - Chronic kidney disease, stage 3 (moderate) (2) Morbid obesity with BMI of 40.0-44.9, adult Current Visit: Yes Status: Chronic (3) Chronic respiratory failure Current Visit: Yes Status: Chronic Assessment and plan: patient has chronic respiratory failure most likely 2/2 cor pulmonale, severe pulmonary HTN, obesity and SMITA. needs BIPAP prn and is on 02 at home at baseline requiring BIPAP at this time to mainatain sats >88% alert and awake , CXR with no pneumonia, no fever or leuccoytosis Qualifiers: Respiratory failure complication: hypoxia and hypercapnia Qualified Code(s) : J96.11 - Chronic respiratory failure with hypoxia; J96.12 - Chronic respiratory failure with hypercapnia (4) DM type 2 (diabetes mellitus, type 2) Current Visit: Yes Status: Chronic Qualifiers: Diabetes mellitus complication status: with kidney complications Diabetes mellitus complication detail: with chronic kidney disease Diabetes mellitus terminal gauger supervisor insulin use: without terminal gauger supervisor use Chronic kidney disease stage: stage 3 (moderate) Qualified Code(s): E11.22 - Type 2 diabetes mellitus with diabetic chronic kidney disease; N18.3 - Chronic kidney disease, stage 3 ( moderate) (5) SMITA treated with BiPAP Current Visit: Yes Status: Chronic Assessment and plan: will continue the bIPAP prn at night. (6) Secondary pulmonary hypertension Current Visit: No Status: Chronic Assessment and plan: from morbid obesity, also has SMITA. echo shows preserved LVEF,cor pulmonale and RHF possible 2/2 severe pulmonary HTN> persistent hypotension not responding to IVF, decreased urine output. cardiology on board, will possible need IV pressors at this point. (7) Fall Current Visit: Yes Status: Acute Assessment and plan: brought in after fall. will consult Pt/OT and may need inpt. rehab at [place]. Qualifiers: Encounter type: initial encounter Qualified Code(s): W19.XXXA - Unspecified fall, initial encounter - Subjective Interval history: bob seen at the bedside, came s/p fall at home. appears alert and awake , denies chest pain, n/v/d - Constitutional Vitals: Temp Pulse Resp BP Pulse Ox 97.9 F 102 16 72/45 91 05/31/17 07:14 05/31/17 04:14 05/31/17 07:14 05/31/17 07:14 05/31/17 07:14 General appearance: Present: A&O X 3, morbidly obese Internal Medicine: Result - Labs CBC & Chem 7: 05/31/17 06:55 05/31/17 06:55 Labs: Short CBC 05/31/17 Range/Units 06:55 WBC 8.8 (4.3-11.1) K/mcL Hgb 10.6 L (11.5-15.4) g/dL Hct 38.8 (35.3-44.9) % Plt Count 121 L (140-400) K/mcL BMP 05/30/17 05/31/17 03:06 06:55 Sodium 141 139 Potassium 5.5 H 4.9 H Chloride 92 L 93 L Carbon Dioxide 39 H 38 H BUN 63 H 68 H Creatinine 2.94 H 3.75 H Glucose 222 H 117 H Calcium 8.9 8.6 Liver Function 05/31/17 Range/Units 06:55 Total Bilirubin 0.6 (0.2-1.2) mg/dL AST 54 H (5-34) Units/L ALT 151 H (0-55) Units/L Alkaline Phosphatase 91 (38-126) Units/L Albumin 3.0 L (3.5-5.0) g/dL - ABG Interpretation ABG results: PT/INR, D-dimer PT 11.8 Seconds (9.4-12.1) 05/31/17 06:55 - VTE Documentation of Mechanical Device: Intermittent pneumatic compression device Consult Discharge Plan - Plan Referrals: Sunny Stanley MD [Primary Care Provider] -
[2017-05-31] MEDS: Insulin LISPRO 300 UNITS/3 ML VIAL SQ SCH ×7 (08:33→21:08)
[2017-05-31] MEDS: Gabapentin 100 MG CAPSULE PO SCH ×3 (08:34→21:09)
[2017-05-31] MEDS: Furosemide 40 MG/4 ML VIAL IVP SCH (08:34)
--- NOTE | 2017-05-31 08:48 | Pulmonology Consult Note ---
Date of Encounter: 05/31/17 Time of Encounter: 08:48 Assessment and Plan (1) Acute and chronic respiratory failure Current Visit: Yes Status: Acute This is a 46-year-old woman with multiple medical comorbidities who acutely appears to have acute on chronic respiratory failure and decompensated right heart failure (corpulmonale)with evidence of worsening kidney failure suspected s/t hypoperfusion. I do not feel there is grossly evidence of an infectious process at play here. Baseline respiratory status appears to be quite tenuous and she is a high risk for decompensation with subtle insults such as diuretic mismanagement of her noncompliance noninvasive ventilation noncompliance etc. Overall plan we will focus on right ventricular support acutely this will require vasopressor and we have instituted levothyroid could consider an inotrope with more pulmonary vasodilatory properties such as milrinone based upon clinical course. Left ventricular function appears intact grossly. Lactate is within normal limits at this time Currently patient's being supported with noninvasive ventilation but given metabolic derangements and worsening hypercarbia and lethargy she has a very high risk of requiring endotracheal intubation and mechanical ventilatory support. Unfortunately given high IPAP to EPAP ratios that patient requires at baseline there is very little room to adjust BiPAP in this complex patient currently on 21/09 tidal volume is approximately 5-600 mL her respiratory rate is fluctuating between 8-14. We will check a repeat arterial blood gas in approximately 1 hour to see if there is been improvement in her overall acidosis. Her pulmonary hypertension is likely multifactorial in nature I do suspect she does have an element of elevated left ventricular end-diastolic pressure however she has likely severe group 3 pulmonary hypertension and it is unclear to me at this time she could have a primary component to pulmonary hypertension although possible. Given complexity of case placement of pulmonary artery catheter would have to be considered cardiology is following and I will discuss with Dr. Cannon the consult facility sales and admin regarding this. This may also require transfer to a tertiary referral center for right ventricular support apparatus or continuous pulmonary vasodilatory support given social issues and noncompliance likely she is not a good candidate In addition, with worsening creatinine And little to no urine output if no improvement with vasopressor suspect patient would need evaluation for renal replacement therapy and to this end the Nephrology service has been consulted. Generally feel the patient appears volume overloaded but until improvement in Pope flow would need to hold off on diuresis we will attempt to limit all nephrotoxic agents and renal dose medications Does have evidence of chronic skin breakdown and likely faisal intertrigo for which I have prescribed a nystatin cream to be administered on a routine basis by the nursing staff along with routine skin care provided by ICU protocol to prevent ulcers Her LFTs are modestly elevated which could also be associated with hepatic congestion secondary to right heart dysfunction. We will continue to monitor this although encouragingly they have down trended since admission. She will be provided with chemical DVT prophylaxis ICU team as attempted to contact her family although emergency contact numbers are not working. He was on the phone at the time of transfer with her family members so they are aware that she is being moved to the intensive care unit. She remains full code in the event of cardiac arrest. I spent 35min of Critical Care time with this patient. It involved decision making of high complexity to assess, manipulate, and support vital organ system failure and/or to prevent further life threatening deterioration of the patient' s condition. The time involved in the performance of separately reportable procedures was not counted toward critical care time. Qualifiers: Respiratory failure complication: hypoxia and hypercapnia Qualified Code(s) : J96.21 - Acute and chronic respiratory failure with hypoxia; J96.22 - Acute and chronic respiratory failure with hypercapnia (2) Acute on chronic renal failure Current Visit: Yes Status: Acute Qualifiers: Acute renal failure type: unspecified Chronic kidney disease stage: stage 3 (moderate) Qualified Code(s): N17.9 - Acute kidney failure, unspecified; N18.3 - Chronic kidney disease, stage 3 (moderate) (3) Moderate to severe pulmonary hypertension Current Visit: Yes Status: Chronic (4) Morbid obesity with BMI of 50.0-59.9, adult Current Visit: Yes Status: Chronic (5) Candidal intertrigo Current Visit: No Status: Acute (6) SMITA treated with BiPAP Current Visit: Yes Status: Chronic (7) Cor pulmonale Current Visit: Yes Status: Acute (8) Chronic systolic (congestive) heart failure Current Visit: Yes Status: Acute History of Present Illness Consult date: 05/31/17 Requesting physician: Jorge A Khan Reason for consult: pulmonary hypertension, other Chief complaint: Shortness of breath. History of present illness: This is a 46-year-old woman super morbid obesity heart failure with reduced ejection fraction obesity hypoventilation syndrome obstructive sleep apnea severe pulmonary hypertension chronic hypoxic hypercapnic respiratory failure who presented for decompensated respiratory failure. Patient had to be transferred emergently to ICU because of hypotension and worsening respiratory failure while in the stepdown unit today. History was taken from the nursing staff and medical record as patient is a willing but incomplete historian and currently on bilevel positive airway pressure support. She initial been seen by cardiology here because of a mild troponin elevation which was thought secondary to demand ischemia. She also had evidence of right ventricular failure including flattening of the intraventricular septum and reduced performance of the right ventricle. Her map had generally been above 60 but systolic pressures were ranging between 70s to 80s she has had evidence of worsening renal dysfunction despite aggressive volume resuscitation. On transfer to the ICU a central venous catheter was inserted by myself and she was placed on levophed. ABG was suggestive of acute on chronic hopsix hypercapnic respiratory failure and she is being supported with noninvasive ventilation Per the medical record patient does have a history of medical noncompliance Past Med Surg Social Fam HX - Past Medical History Medical history: arthritis, asthma, cardiomyopathy, CHF, COPD, diabetes, GERD, hypertension, osteoporosis, peripheral artery disease, venous stasis, other Psychiatric history: anxiety, depression, other - Past Surgical History Surgical History: herniorrhaphy, other - Social History Smoking Status: Former smoker Smokeless Tobacco Status: No Alcohol use: none Drug use: marijuana - Family History Son Adopted: No Family Member Ethnicity: Non- Living Status: Still Living Hx Family Cardiac Disorders: Yes Hx Family Respiratory Disorders: Yes Hx Family Cancer: No Hx Family GI Disorders: No Hx Family Endocrine Disorder: Yes Hx Family Neuromuscular Disorders: No Hx Family Neurologic Disorders: No Hx Family HEENT Disorders: No Hx Family Autoimmune Disorders: No Father Living Status: Hx Family Cardiac Disorders: Yes (enlarged heart) Hx Family Respiratory Disorders: (Emphysema) Hx Family Cancer: Yes (Lung and rectal cancer) Hx Family Endocrine Disorder: Yes (diabetic) Mother Living Status: Hx Family Cardiac Disorders: Yes (stents) Hx Family GI Disorders: Yes (GI bleed) Hx Family Endocrine Disorder: Yes (diabetic) Medications and Allergies Omeprazole [PriLOSEC] 20 mg PO DAILY 06/22/16 [History] Oxygen 3 l NS AD 06/22/16 [History] Albuterol Sulfate [Ventolin Hfa] 18 gm IH Q4H PRN #1 hfa.[id number].[id number] 04/25/17 [Rx] Theophylline Anhydrous [Theodur] 300 mg PO BID #60 tab.er.12h 04/25/17 [Rx] Tiotropium [Spiriva] 18 mcg IH DAILY #30 inh 04/25/17 [Rx] Cholecalciferol (D-3) [Vitamin D] 2,000 unit PO DAILY #60 tablet 05/06/17 [Rx] Furosemide [Lasix] 40 mg PO DAILY #30 tablet 05/14/17 [Rx] Albuterol Neb [Proventil Neb] 2.5 mg IH Q6H PRN 05/29/17 [History] Metoprolol [Lopressor] 25 mg PO BID 05/29/17 [History] Potassium Chloride [Klor-Con Sprinkle] 10 meq PO BID 05/29/17 [History] Allergies No Known Allergies Allergy (Verified 05/06/17 00:08) All Systems: A 10-system review of systems was performed and is negative for pertinent findings except as documented above in the HPI. Physical Examination Vital Signs: Vital Signs, Last 4 Hours Temp Resp BP Pulse Ox 05/31/17 07:57 16 73/43 92 05/31/17 07:14 97.9 F 16 72/45 91 General appearance: lethargic Eyes: nonicteric ENT: oropharynx moist Mallampati (class): 4 Neck: no lymphadenopathy, other (Short neck) Effort: normal Auscultation: bilateral: diminished breath sounds, rales, other (No evidence of wheezing) Cardiovascular: regular rate and rhythm Gastrointestinal: non-tender, other (She has a large pannus with some underlying skin breakdown without clear evidence of cellulitis) Integumentary: other (Warm no peripheral rash or erythema) Extremities: edema Musculoskeletal: no deformities other (Patient is able to answer all questions she is lethargic but easily arousable and moves all extremities without focal deficit pupils are equal round reactive to light) other (At times she is understandably scared and petitioned me to "stabilize her ") Results - Laboratory Findings CBC and BMP: 05/31/17 06:55 05/31/17 06:55 PT/INR, D-dimer PT 11.8 Seconds (9.4-12.1) 05/31/17 06:55 Abnormal lab findings: Abnormal lab results RBC 3.62 M/mcL (3.82-4.97) L 05/31/17 06:55 Hgb 10.6 g/dL (11.5-15.4) L 05/31/17 06:55 MCV 107.2 fL (83.0-100.0) H 05/31/17 06:55 MCHC 27.3 g/dL (31.6-35.5) L 05/31/17 06:55 RDW 20.5 % (11.5-14.5) H 05/31/17 06:55 Plt Count 121 K/mcL (140-400) L 05/31/17 06:55 Lymphocytes # 0.4 K/mcL (0.6-4.6) L 05/30/17 03:06 Nucleated RBCs/100 WBC 2.0 /100 WBC (0) H 05/30/17 03:06 Polychromasia 1+ (Not Present) A 05/30/17 03:06 Hypochromasia Present (Not Present) A 05/30/17 03:06 Basophilic Stippling 1+ (Not Present) A 05/30/17 03:06 Anisocytosis 1+ (Not Present) A 05/30/17 03:06 Potassium 4.9 mEq/L (3.5-4.5) H 05/31/17 06:55 Chloride 93 mEq/L (98-109) L 05/31/17 06:55 Carbon Dioxide 38 mEq/L (19-29) H 05/31/17 06:55 BUN 68 mg/dL (7-20) H 05/31/17 06:55 Creatinine 3.75 mg/dL (0.57-1.11) H 05/31/17 06:55 Est GFR ( Amer) 16 (> 60) L 05/31/17 06:55 Est GFR (Non-Af Amer) 13 (> 60) L 05/31/17 06:55 Glucose 117 mg/dL (70-99) H 05/31/17 06:55 POC Glucose 170 (58-89) H 05/30/17 21:03 Calculated Osmolality 309 (280-300) H 05/31/17 06:55 Phosphorus 6.3 mg/dL (2.3-4.7) H 05/30/17 03:06 AST 54 Units/L (5-34) H 05/31/17 06:55 ALT 151 Units/L (0-55) H 05/31/17 06:55 Creatine Kinase 290 Units/L (29-168) H 05/30/17 03:06 Troponin I 0.36 ng/mL (0-0.03) H* 05/29/17 15:53 Serum Total Protein 5.9 g/dL (6.0-8.3) L 05/31/17 06:55 Albumin 3.0 g/dL (3.5-5.0) L 05/31/17 06:55 Albumin/Globulin Ratio 1.0 (1.1-2.2) L 05/31/17 06:55 Urine Clarity Hazy (Clear) A 05/29/17 18:15 Ur Specific [place] 1.026 (1.010-1.025) H 05/29/17 18:15 Urine Protein 30 mg/dL (Neg-Trace) H 05/29/17 18:15 Urine Ketones Trace mg/dL (Negative) H 05/29/17 18:15 Urine Bilirubin Small (Negative) H 05/29/17 18:15 Urine Microscopic WBC 15-30 per hpf (0-3) H 05/29/17 18:15 Ur Squamous Epith Cells Many per lpf (None-Few) H 05/29/17 18:15 Amorphous Sediment Moderate (Few) H 05/29/17 18:15 Urine Bacteria Moderate per hpf (None-Few) H 05/29/17 18:15 Hyaline Casts Moderate per lpf (None-Few) H 05/29/17 18:15 Ur Culture Indicated? YES (NO) A 05/29/17 18:15 - Microbiology Findings Microbiology Findings: Microbiology, Last 48 Hours 05/29/17 18:15 Urine Culture - Final Urine,Clean Catch No pathogens isolated. - Diagnostic Findings Chest x-ray: report reviewed, image reviewed - Clinical Findings Intake & Output: Intake & Output 05/30/17 05/31/17 05/31/17 23:59 07:59 15:59 Intake Total 1250 / 1250 Balance 1250 / 1250 Weight 155.1 kg Consult Discharge Plan - Plan Referrals: Sunny Stanley MD [Primary Care Provider] -
[2017-05-31] MEDS: Cholecalciferol (D-3) 1,000 UNIT TABLET PO SCH (08:56)
[2017-05-31] MEDS: Aspirin 81 MG TAB.CHEW PO SCH (08:57)
--- NOTE | 2017-05-31 09:51 | Nephrology Consult Note ---
Date of Encounter: 05/31/17 Time of Encounter: 11:13 Assessment and Plan (1) Acute on chronic renal failure Current Visit: Yes Status: Acute 2nd to dehydration, hypotension, shock worsening renal status: Scr increasing 3.75 (baseline Scr 1.1) less than 100cc UOP in last 12 hours. Not improved after IVF Patient hypotensive refractory to IVF, and on exam appears fluid overloaded. New echocardiogram shows EF of 60% with right heart failure and signs of cor pulmonole Hyperkalemic: K+ trending down: 4.9 Plan: difficult situation as patient needs to be diuresed due to fluid overload from right heart failure however is in shock. will require dialysis for fluid overload but BP needs to improved. prognosis poor Qualifiers: Acute renal failure type: unspecified Chronic kidney disease stage: stage 3 (moderate) Qualified Code(s): N17.9 - Acute kidney failure, unspecified; N18.3 - Chronic kidney disease, stage 3 (moderate) (2) Acute and chronic respiratory failure Current Visit: Yes Status: Acute 2nd to COPD,sleep apnea, cor pulmonale management as per primary Qualifiers: Respiratory failure complication: hypoxia and hypercapnia Qualified Code(s) : J96.21 - Acute and chronic respiratory failure with hypoxia; J96.22 - Acute and chronic respiratory failure with hypercapnia (3) Shock Current Visit: Yes Status: Acute Patient continues to be hypotensive, refractory to IVF. Transferred to ICU and started on norepinephrine (4) Metabolic alkalosis with respiratory acidosis Current Visit: Yes Status: Acute 2nd to long standing hx of COPD and sleep apnea on bipap and O2 supplementation mangement as per primary (5) Cor pulmonale Current Visit: Yes Status: Acute (6) Hyperkalemia Current Visit: Yes Status: Acute History of Present Illness - Reason for Consult Acute Kidney Injury Requesting physician: Jorge A Khan - Chief Complaint fall - History of Present Illness 46-year-old female past medical history HFrEF, CK D3, diabetes mellitus II, morbid obesity, COPD presented to an outside facility with chief complaint of fall as she got up from the toilet. Patient stated she felt lightheaded before falling. Denied head injuries. Denies losing consciousness. Patient was found to be in acute kidney injury, hypotensive and acute on chronic respiratory failure. Patient was started on IV fluids and BiPAP. ABG showed a pH of 7.2. She was then transferred to [facility]. She denied fever, chills, vomiting, diarrhea. Patient stated that her urinary frequency started to decrease the past couple weeks and she started having increasing shortness of breath and lower extremity swelling. Patient was recently discharged from [facility] on 05/17/17 for COPD exacerbation and acute congestive heart failure. At that time echocardiogram noted EF of 40% with severely dilated right ventricle, severe tricuspid regurg, severe pulmonary hypertension. Last May patient had nonoliguric yuriy 2nd to hypotension an renal perfusion which was treated with IV fluids. She is followed by Dr. Arboleda outpatient but has not seen her in the last year. Past Med Surg Social Fam HX - Past Medical History Medical history: arthritis, asthma, cardiomyopathy, CHF, COPD, diabetes, GERD, hypertension, osteoporosis, peripheral artery disease, venous stasis, other Psychiatric history: anxiety, depression, other - Past Surgical History Surgical History: herniorrhaphy, other - Social History Smoking Status: Former smoker Smokeless Tobacco Status: No Alcohol use: none Drug use: marijuana - Family History Son Adopted: No Family Member Ethnicity: Non- Living Status: Still Living Hx Family Cardiac Disorders: Yes Hx Family Respiratory Disorders: Yes Hx Family Cancer: No Hx Family GI Disorders: No Hx Family Endocrine Disorder: Yes Hx Family Neuromuscular Disorders: No Hx Family Neurologic Disorders: No Hx Family HEENT Disorders: No Hx Family Autoimmune Disorders: No Father Living Status: Hx Family Cardiac Disorders: Yes (enlarged heart) Hx Family Respiratory Disorders: (Emphysema) Hx Family Cancer: Yes (Lung and rectal cancer) Hx Family Endocrine Disorder: Yes (diabetic) Mother Living Status: Hx Family Cardiac Disorders: Yes (stents) Hx Family GI Disorders: Yes (GI bleed) Hx Family Endocrine Disorder: Yes (diabetic) Medications and Allergies Omeprazole [PriLOSEC] 20 mg PO DAILY 06/22/16 [History] Oxygen 3 l NS AD 06/22/16 [History] Albuterol Sulfate [Ventolin Hfa] 18 gm IH Q4H PRN #1 hfa.aer.ad 04/25/17 [Rx] Theophylline Anhydrous [Theodur] 300 mg PO BID #60 tab.er.12h 04/25/17 [Rx] Tiotropium [Spiriva] 18 mcg IH DAILY #30 inh 04/25/17 [Rx] Cholecalciferol (D-3) [Vitamin D] 2,000 unit PO DAILY #60 tablet 05/06/17 [Rx] Furosemide [Lasix] 40 mg PO DAILY #30 tablet 05/14/17 [Rx] Albuterol Neb [Proventil Neb] 2.5 mg IH Q6H PRN 05/29/17 [History] Metoprolol [Lopressor] 25 mg PO BID 05/29/17 [History] Potassium Chloride [Klor-Con Sprinkle] 10 meq PO BID 05/29/17 [History] Allergies No Known Allergies Allergy (Verified 05/06/17 00:08) Review of Systems All Systems review (narrative): Constitutional: Denies fever, chills HEENT: Denies headache, vision changes, neck pain, sore throat, rhinorrhea Heart: Denies chest pain palpitations Lungs: reports sob and cough Abdomen:reprots abdominal pain and nausea. Denies diarrhea, vomiting, Nephrology: reports decreased urinary frequency. Denies dysuria. Extremities:reports lower extremity swelling and pain Neurology: Denies numbness, and tingling Exam - Vital Signs Vital signs: Initial Vital Signs Resp BP Pulse Ox 24 85/62 94 05/29/17 06:40 05/29/17 06:40 05/29/17 06:40 Vital Signs - Last 8 Hours Temp Pulse Resp BP Pulse Ox 05/31/17 07:57 16 73/43 92 05/31/17 07:14 97.9 F 16 72/45 91 05/31/17 04:45 17 77/48 93 05/31/17 04:14 97.6 F 102 17 73/50 91 05/31/17 03:15 100 Intake and Output 05/30/17 05/31/17 05/31/17 23:59 07:59 15:59 Intake Total 1250 / 1250 Balance 1250 / 1250 Intake: IV Fluids 1250 / 1250 0.9 % Sodium Chloride 250 250 / 250 ML @ 500 mls/hr IVC . Q30M ONE Rx#:[id number] 0.9 % Sodium Chloride 500 1000 / 1000 ML @ 999 mls/hr IVC . Q31M ONE Rx#:[id number] Other: Weight 155.1 kg Blood Glucose* 170 136 Patient Weight 05/31/17 23:59 Weight 155.1 kg - General Appearance General appearance: obese, chronically ill EENT: PERRL, mucous membranes moist Neck: JVD (difficult to identify due to thick neck. ), supple Respiratory: clear Cardiology: edema (2+ b/l ), regular rate, normal S1, normal S2 Gastrointestinal: no tenderness, no guarding, no masses Additional Comments: Difficult to assess abdominal sounds due to to obesity. chornic paniculitis Integumentary: no rash, warm and dry Neurologic: alert and oriented x3 Musculoskeletal: no cyanosis, no clubbing Psychiatric: cooperative Results - Lab Results 05/31/17 06:55 05/31/17 06:55 Most recent lab results Calcium 8.6 mg/dL (8.6-10.8) 05/31/17 06:55 Phosphorus 6.3 mg/dL (2.3-4.7) H 05/30/17 03:06 Magnesium 2.0 mg/dL (1.6-2.6) 05/31/17 06:55 Consult Discharge Plan - Plan Referrals: Sunny Stanley MD [Primary Care Provider] -
--- NOTE | 2017-05-31 10:06 | Cardiology Progress Note ---
Date of Encounter: 05/31/17 Time of Encounter: 10:04 Assessment and Plan (1) Elevated troponin Current Visit: Yes Status: Inactive Mildly elevated troponin in setting of morbid obesity with chronic respiratory insufficiency, BLANCA. No acute ECG changes. Suspect demand ischemia. Presentation is not c/w ACS. Limited echocardiogram reviewed at bedside - LV function remains normal, RV enlargment/hypokinesis remains. No further recommendations re: troponin elevation. (2) Cor pulmonale Current Visit: Yes Status: Acute Patient presents with acute on chronic respiratory insufficiency. Suspect significant pulmonary hypertension is secondary as a result of morbid obesity, although other causes cannot be excluded. TTEs demonstrate evidence of cor pulmonale - enlargement and failure of right heart as a response to pulmonary HTN. Transaminitis possibly related to passive congestion. Stop atorvastatin for now. Recommend ongoing supplemental oxygen/BIPAP prn. Ideally, diuretics, and afterload reduction would be recommended, but BP remains marginal. Given evidence of cor pulmonale, worsening BLANCA and marginal BP - I would recommend transfer to a tertiary center for evaluation and management, especially if pulmonary service agrees. 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 Given morbid obesity, current condition, and cor pulmonale, her prognosis is very poor. (3) BLANCA (acute kidney injury) Current Visit: Yes Status: Acute BLANCA with associated hyperkalemia. Likely related to ATN and cardiopulmonary issues above (reduced cardiac output, hypotension). Your medical managment. Discussion w patient/family: The assessment and plan as outlined above was discussed with the patient and/or family members who expressed understanding and agreement. All questions were answered. Thank you for involving us in the care of your patient. Please call with any questions. Subjective Principal diagnosis: Respiratory insufficiency Interval history: Overall, condition remains guarded. She is off bipap this morning. BP 70s overnight. Given maintenance IVFs for hemodynamic support. Lower extremity edema has worsened. Cr worsneing. LFTs remain elevated, but bettter than yesterday. . U/A moderate bacteria. Objective Vital Signs, Last 4 Hours Temp Resp BP Pulse Ox 05/31/17 07:57 16 73/43 92 05/31/17 07:14 97.9 F 16 72/45 91 General: Other (More coherent today. ) HEENT: Atraumatic, Normocephaly, Mucus Membranes Moist Neck: Other (Large neck, unable to detect JVD. ) Cardiac: Other (Distant, but appear regular. Difficult to appreciate murmurs. ) Lungs: Other (Shallow bilterally. ) Neuro: No focal deficits noted, Other (Answers questions coherently. ) Abdomen: Soft, Non-Tender, Other (morbidly obese) Skin: No rashes noted on visualized skin Musculoskeletal: No Chest Wall Tenderness Extremities: Other (Severe LE edema) Results 05/31/17 06:55 05/31/17 06:55 Lab Results 05/30/17 05/31/17 05/31/17 03:06 06:55 06:55 WBC 8.8 Hgb 10.6 L Hct 38.8 Plt Count 121 L INR 1.1 Sodium 141 Potassium 5.5 H Chloride 92 L Carbon Dioxide 39 H BUN 63 H Creatinine 2.94 H Glucose 222 H Calcium 8.9 Magnesium Total Bilirubin AST ALT Alkaline Phosphatase 05/31/17 06:55 WBC Hgb Hct Plt Count INR Sodium 139 Potassium 4.9 H Chloride 93 L Carbon Dioxide 38 H BUN 68 H Creatinine 3.75 H Glucose 117 H Calcium 8.6 Magnesium 2.0 Total Bilirubin 0.6 AST 54 H ALT 151 H Alkaline Phosphatase 91 - Imaging and Cardiology Echo: report reviewed - VTE Documentation of Mechanical Device: Intermittent pneumatic compression device Consult Discharge Plan - Plan Referrals: Sunny Stanley MD [Primary Care Provider] -
[2017-05-31 10:45] LABS: ABG Base Excess 11.1 mEq/L (-2.0 to 3.0); ABG HCO3 44.9 mEQ/L (21-27); ABG Oxygen Saturation 75 % (95-98); ABG PO2 51 mmHg (85-104); ABG TCO2 48.8 mEq/L (20-26)
[2017-05-31 10:47] LABS: ABG PH 7.16 pH Units (7.32-7.45)
[2017-05-31 10:48] LABS: ABG PCO2 126 mmHg (35-45); Blood Gas FiO2 100 %
[2017-05-31 10:55] LABS: Hepatitis B Surface Antibody 0.24 mIU/mL; Hepatitis C Virus Antibody Nonreactive (Nonreactive)
[2017-05-31] MEDS: Norepinephrine 4 MG in D5% in Water 250 ML IVC SCH ×2 (11:50→22:36)
--- NOTE | 2017-05-31 11:51 | Procedure Note ---
Date of procedure: 05/31/17 Pre-op diagnosis: Shock Post-op diagnosis: same Procedure: Consent: Detailed explanation of the procedure, treatment options, risks including but not limited to infection and bleeding, and benefits were explained to the patient . A written informed consent was obtained. Technique: A time out was preformed identifying the correct procedure, the correct location with the nursing staff. The right neck was prepped with 2% chlorhexidine and draped with a full length sterile sheet in the usual fashion. 1% lidocaine was administered subcutaneously for local anesthesia. The right internal jugular vein was accessed under ultrasound guidance with an 18 gauge thin wall needle. A wire was inserted through the needle however despite 3 attempts the wire could not be advanced CVC cannulation of IJ was aborted then the right groin was prepped with 2% chlorhexidine and draped with a full length sterile sheet in the usual fashion. 1% lidocaine was administered subcutaneously for local anesthesia. The right femoral jugular vein was accessed under ultrasound guidance with an 18 gauge thin wall needle. A triple lumen was inserted via the seldinger technique on the second attempt. Blood was withdrawn from all lumens and flushed with normal saline. The catheter was sutured in place and a sterile dressing was applied over the site prior to removal of drapes. The patient tolerated the procedure well Surgeon: Ronald Stevens Condition: critical Disposition: ICU
[2017-05-31 13:53] LABS: ABG Base Excess 14.9 mEq/L (-2.0 to 3.0); ABG HCO3 48.5 mEQ/L (21-27); ABG Oxygen Saturation 70 % (95-98); ABG TCO2 52.4 mEq/L (20-26)
[2017-05-31 13:56] LABS: ABG PH 7.19 pH Units (7.32-7.45)
[2017-05-31 13:57] LABS: ABG PCO2 127 mmHg (35-45); ABG PO2 46 mmHg (85-104); Blood Gas FiO2 65 %
[2017-05-31 14:17] LABS: ABG Base Excess 13.1 mEq/L (-2.0 to 3.0); ABG Oxygen Saturation 85 % (95-98); ABG PO2 63 mmHg (85-104); ABG TCO2 50.9 mEq/L (20-26)
[2017-05-31] MEDS ORDERED: 0.9 % Sodium Chloride 1,000 ML PRIME SCH (14:20)
[2017-05-31] MEDS ORDERED: Calcium Gluconate 2,000 MG in D5% in Water 100 ML IVPB PRN (14:20)
[2017-05-31] MEDS ORDERED: *HR* Heparin 5,000 UNIT/ML VIAL IV PRN (14:20)
[2017-05-31 14:23] LABS: ABG PCO2 126 mmHg (35-45); ABG PH 7.18 pH Units (7.32-7.45)
[2017-05-31 14:24] LABS: Blood Gas FiO2 65 %
[2017-05-31] MEDS ORDERED: D5% in Water 1,000 ML IVC ONE (14:49)
--- NOTE | 2017-05-31 15:09 | Procedure Note ---
Date of procedure: 05/31/17
--- NOTE | 2017-05-31 15:13 | Procedure Note ---
<Nell Lagunas - Last Filed: 05/31/17 15:18> Date of procedure: 05/31/17 Pre-op diagnosis: Acute on chronic respiratory failure. Post-op diagnosis: same Procedure: A 20-gauge arterial catheter was placed in the patient's right radial artery under bedside ultrasound. This was performed with the Seldinger technique. Patient tolerated procedure well. Skin was prepped with an alcohol prep. She was sterilely draped. The artery was visualized via bedside ultrasound. The needle was placed into the vessel. Wire was passed without any problems. The catheter was then placed over top of the wire and the wire was removed. Pulsating blood was observed to come out of the catheter. This was then hooked up to the arterial pressure monitoring device. The catheter was secured with 2 sutures. A Tegaderm was placed over this. 0.5 mL of lidocaine was used to anesthetize the skin prior to suturing. The procedure was performed by me alda Lagunas D.O. and by Dr. Stevens. Anesthesia: regional Surgeon: Nell Lagunas Alley Cleaner: Ronald Stevens Estimated blood loss (cc): 5 Pathology: none sent Condition: stable Disposition: no change <Ronald Stevens - Last Filed: 05/31/17 15:42> Procedure: I was present for the entire procedure
[2017-05-31 15:38] LABS: ABG Base Excess 14.7 mEq/L (-2.0 to 3.0); ABG HCO3 48.5 mEQ/L (21-27); ABG Oxygen Saturation 84 % (95-98); ABG PO2 60 mmHg (85-104); ABG TCO2 52.4 mEq/L (20-26)
[2017-05-31] MEDS ORDERED: Heparin 1,000 UNITS/500 mL NS 500 ML ONE (15:38)
[2017-05-31 15:39] LABS: Calcium 8.9 mg/dL (8.6-10.8)
[2017-05-31 15:40] LABS: INR 1.2; Prothrombin Time 12.5 Seconds (9.4-12.1)
[2017-05-31 15:42] LABS: ABG PCO2 127 mmHg (35-45); ABG PH 7.19 pH Units (7.32-7.45)
[2017-05-31 15:44] LABS: Blood Gas FiO2 70 %
[2017-05-31 15:46] LABS: Ionized Calcium 1.11 mmol/L (1.15-1.35)
[2017-05-31] MEDS ORDERED: *HR* Heparin 5,000 UNIT/ML VIAL ONE (15:56)
--- NOTE | 2017-05-31 16:51 | IR Procedure Note ---
Date of procedure: 05/31/17 Consent Obtained: Verbal consent Timeout: Correct patient and procedure verified, Correct site verified, Time out performed, Skin prep completed Local anesthetic: Lidocaine 1% Indications: Acute renal insufficiency Procedure Performed: Temp HD catheter placement Site/Technique: RIJV access. Used larger 15fr HD catheter given pts neck size Results/Findings: Working well after placement. Secured with suture. Estimated blood loss (cc): 3 Complications: None; Tolerated procedure well Post Procedure Treatment Plan: Monitoring in pts room
[2017-05-31] MEDS: Nystatin OINT 15 GM TUBE TP SCH ×3 (17:04→22:17)
[2017-05-31] MEDS: Nystatin POWDER 30 GM BOTTLE TP SCH (17:06)
[2017-05-31 17:41] LABS: ABG Base Excess 13.2 mEq/L (-2.0 to 3.0); ABG HCO3 44.6 mEQ/L (21-27); ABG Oxygen Saturation 83 % (95-98); ABG PH 7.22 pH Units (7.32-7.45); ABG PO2 57 mmHg (85-104); ABG TCO2 47.9 mEq/L (20-26)
[2017-05-31 17:47] LABS: Blood Gas FiO2 70 %
[2017-05-31 17:48] LABS: ABG PCO2 109 mmHg (35-45)
[2017-05-31] MEDS ORDERED: *HR* FentaNYL (PF) 100 MCG/2 ML VIAL ONE (17:55)
--- NOTE | 2017-05-31 18:36 | Procedure Note ---
Date of procedure: 05/31/17 Pre-op diagnosis: Respiratory Failure Procedure: Time out was deffered as the procedure was emergent.. The patient was placed in a flat position. Sedation was obtained using . The patient was easily ventilated using an Ambu bag. A GLIDESCOPE MAC 3/ BLADE was used and inserted into the oropharynx at which time there was a Grade 1 view of the vocal cords. A 7.5-wallisian endotracheal tube was inserted and visualized going through the vocal cords. The stylette was removed. Colorimetric change was visualized on the CO2 meter. Breath sounds were heard in both lung vaughn equally. The endotracheal tube was placed at 23 cm, measured at the lips endotrachealtube placement was verified with direct visualization via bronchoscope A chest x-ray was ordered and is pending at this time to assess for pneumothorax . Anesthesia: IV sedation Pathology: none sent Condition: critical Disposition: no change
[2017-05-31] MEDS ORDERED: *HR* FentaNYL (PF) 100 MCG/2 ML VIAL IVP ONE (18:44)
[2017-05-31] MEDS: FentaNYL (PF) 1,000 MCG in 0.9 % Sodium Chloride 80 ML IVC SCH (19:15)
[2017-05-31 20:07] LABS: Mixed Venous Blood pCO2 84 mmHg (44-46); Mixed Venous Blood pH 7.33 (7.34-7.36); Mixed Venous Blood pO2 179 mmHg (35-45)
[2017-05-31 20:11] LABS: ABG HCO3 42.4 mEQ/L (21-27); ABG Oxygen Saturation 95 % (95-98); ABG PH 7.36 pH Units (7.32-7.45); ABG PO2 79 mmHg (85-104); ABG TCO2 44.7 mEq/L (20-26)
[2017-05-31 20:14] LABS: ABG PCO2 75 mmHg (35-45)
[2017-05-31] MEDS: PrismaSATE BGK 4/2.5 5,000 ML CRRT SCH ×2 (21:04)
[2017-05-31] MEDS: Calcium Chloride 4,000 MG in 0.9 % Sodium Chloride 1,000 ML CRRT SCH (21:04)
[2017-05-31] MEDS: Insulin DETEMIR 100 UNIT/ML X5UNITS SQ SCH (21:08)
[2017-05-31] MEDS: MILRINONE 20 MG/100 ML IVC SCH (21:15)
[2017-05-31 22:00] LABS: Mixed Venous Blood pCO2 89 mmHg (44-46); Mixed Venous Blood pH 7.29 (7.34-7.36); Mixed Venous Blood pO2 73 mmHg (35-45)
[2017-05-31 22:25] LABS: VBG HCO3 36.7 mEq/L (21-27); VBG PCO2 47 mmHg (41-51); VBG PO2 202 mmHg (25-40)
[2017-06-01] MEDS: PrismaSATE BGK 4/2.5 5,000 ML CRRT SCH ×8 (01:15→13:53)
[2017-06-01 03:20] LABS: Ionized Calcium 1.13 mmol/L (1.15-1.35)
[2017-06-01 03:29] LABS: Calcium 8.8 mg/dL (8.6-10.8); Magnesium 1.8 mg/dL (1.6-2.6); Phosphorous 4.3 mg/dL (2.3-4.7); Potassium 4.8 mEq/L (3.5-4.5); Uric Acid 4.7 mg/dL (2.6-6.0)
[2017-06-01 03:40] LABS: Eosinophils % 0.3 %; Hematocrit 36.7 % (35.3-44.9); Hemoglobin 10.6 g/dL (11.5-15.4); Immature Granulocytes % 0.4 % (0-4); Lymphocytes % 12.5 %; Mean Corpuscular HGB Conc 28.9 g/dL (31.6-35.5); Mean Corpuscular Hemoglobin 28.4 pg (28.0-33.3); Mean Corpuscular Volume 98.4 fL (83.0-100.0); Mean Platelet Volume 11.8 fL (9.4-12.4); Monocytes # 0.6 K/mcL (0.0-1.3); Monocytes % 7.8 %; Nucleated Red Blood Cells 1.1 /100 WBC (0); Platelet Count 133 K/mcL (140-400); Red Blood Count 3.73 M/mcL (3.82-4.97); Red Cell Distribution Width 20.3 % (11.5-14.5)
[2017-06-01 03:41] LABS: Neutrophils # 6.2 K/mcL (1.6-8.9)
[2017-06-01 03:54] LABS: Albumin 2.8 g/dL (3.5-5.0); Bilirubin,Direct 0.4 mg/dL (0.0-0.5); Bilirubin,Indirect 0.4 mg/dL (0.0-1.2); Bilirubin,Total 0.8 mg/dL (0.2-1.2); Globulin 2.9 g/dL (2.4-3.5); Total Protein 5.7 g/dL (6.0-8.3)
[2017-06-01] MEDS: MILRINONE 20 MG/100 ML IVC SCH ×4 (04:13→22:55)
[2017-06-01 04:52] LABS: Anisocytosis 2+ (Not Present); Basophilic Stippling 1+ (Not Present); Platelet Estimate Normal (Normal)
[2017-06-01 04:53] LABS: Large Platelets Present (Not Present); Polychromasia 1+ (Not Present); Reactive Lymphocytes Present (Not Present)
[2017-06-01] MEDS: *HR* Heparin 5,000 UNIT/ML VIAL SQ SCH (05:20)
[2017-06-01 05:26] LABS: ABG Base Excess 14.1 mEq/L (-2.0 to 3.0); ABG HCO3 44.3 mEQ/L (21-27); ABG Oxygen Saturation 85 % (95-98); ABG PH 7.31 pH Units (7.32-7.45); ABG PO2 55 mmHg (85-104)
[2017-06-01 05:29] LABS: Blood Gas FiO2 70 %; Blood Gas PEEP 5 cm H2O; Blood Gas Respiration Rate 18; Blood Gas VT 450 cc
[2017-06-01 05:30] LABS: ABG PCO2 88 mmHg (35-45)
[2017-06-01 05:53] LABS: ABG Base Excess 13.8 mEq/L (-2.0 to 3.0); ABG HCO3 43.8 mEQ/L (21-27); ABG Oxygen Saturation 88 % (95-98); ABG PH 7.31 pH Units (7.32-7.45); ABG PO2 60 mmHg (85-104); ABG TCO2 46.5 mEq/L (20-26)
[2017-06-01 05:55] LABS: ABG PCO2 87 mmHg (35-45); Blood Gas FiO2 70 %; Blood Gas PEEP 5 cm H2O; Blood Gas Respiration Rate 18; Blood Gas VT 450 cc
[2017-06-01] MEDS: FentaNYL (PF) 1,000 MCG in 0.9 % Sodium Chloride 80 ML IVC SCH (06:20)
--- NOTE | 2017-06-01 07:36 | Pulmonology Progress Note ---
<Nell Lagunas - Last Filed: 06/01/17 11:15> Date of Encounter: 06/01/17 Time of Encounter: 07:36 Assessment and Plan (1) Acute and chronic respiratory failure Current Visit: Yes Status: Acute Patient initially presented to the hospital status post fall. She subsequently was found to have an increased troponin and to be in rhabdomyolysis. She began having respiratory distress. She was placed on BiPAP. She was emergently intubated yesterday for acute on chronic respiratory failure. She does have a history of coronary hypertension as well as decompensated right heart failure. She is currently intubated on a ventilator. She is being sedated with Versed as well as fentanyl. She is on milrinone as well as Levothroid. She is currently getting Yoli as well. Her urine output has increased overnight. Her creatinine is also improving. Nephrology is on board. We will continue Yoli throughout the day. We will continue to have her on the ventilator. Plan: Wean pressors as tolerated. Continue Yoli today per nephrology. We will stop Yoli this evening and reevaluate her I's and the morning. Continue to monitor urine output. Echo today. Heparin subcutaneous for DVT prophylaxis. Qualifiers: Respiratory failure complication: hypoxia and hypercapnia Qualified Code(s) : J96.21 - Acute and chronic respiratory failure with hypoxia; J96.22 - Acute and chronic respiratory failure with hypercapnia (2) Acute on chronic renal failure Current Visit: Yes Status: Acute Nephrology on board. Plan: Continue Yoli today. Stop this evening. We will re-evaluate electrolytes in the morning. Qualifiers: Acute renal failure type: unspecified Chronic kidney disease stage: stage 3 (moderate) Qualified Code(s): N17.9 - Acute kidney failure, unspecified; N18.3 - Chronic kidney disease, stage 3 (moderate) (3) Chronic systolic (congestive) heart failure Current Visit: Yes Status: Acute Plan as above (4) Cor pulmonale Current Visit: Yes Status: Acute (5) Moderate to severe pulmonary hypertension Current Visit: Yes Status: Chronic (6) Morbid obesity with BMI of 50.0-59.9, adult Current Visit: Yes Status: Chronic (7) SMITA treated with BiPAP Current Visit: Yes Status: Chronic (8) Candidal intertrigo Current Visit: No Status: Acute Subjective Principal diagnosis: Respiratory insufficiency Interval history: Patient stable overnight. She has been fluctuating on her needs for vasopressors. Milrinone was added overnight. She is easily responsive to stimulus. She is currently intubated and on the ventilator. She is sedated with fentanyl as well as Versed. She is currently on Yoli. We will continue this throughout the day. Her urine output has increased. The Miller was changed last night. After a new one was placed 300 mL out. She has had at least 30mL out each hour overnight. We will continue the patient on Yoli today and attempt to wean pressors as tolerated. Objective PUL Vital signs: Last Vital Signs Temp 97.0 F L 06/01/17 04:00 Pulse 100 06/01/17 07:00 Resp 18 06/01/17 07:00 BP 95/52 06/01/17 07:00 Pulse Ox 95 06/01/17 07:00 General appearance: no acute distress, other (Patient intubated and sedated however easily arousable to voice.) Eyes: nonicteric ENT: oropharynx moist Neck: supple Effort: normal Auscultation: bilateral: clear Cardiovascular: regular rate and rhythm Gastrointestinal: normoactive bowel sounds Integumentary: normal Extremities: no cyanosis Musculoskeletal: no deformities non-focal exam Ventilator Settings Ventilator Settings: Ventilator Settings, Last 8 Hours Ventilator Mode A/C Ventilator Mode A/C Ventilator Mode A/C Ventilator Mode A/C Ventilator Mode A/C Ventilator Mode A/C Ventilator Mode A/C Ventilator Mode A/C Ventilator Mode A/C Ventilator Mode A/C Ventilator Mode A/C Ventilator Mode A/C Ventilator Mode A/C Ventilator Tidal Volume 450 Setting Ventilator Tidal Volume 450 Setting Ventilator Tidal Volume 450 Setting Ventilator Tidal Volume 450 Setting Ventilator Tidal Volume 450 Setting Ventilator Tidal Volume 450 Setting Ventilator Tidal Volume 450 Setting Ventilator Tidal Volume 450 Setting Ventilator Tidal Volume 450 Setting Ventilator Tidal Volume 450 Setting Ventilator Tidal Volume 450 Setting Ventilator Tidal Volume 450 Setting Ventilator Tidal Volume 450 Setting Ventilator Respiratory Rate 18 Setting Ventilator Respiratory Rate 18 Setting Ventilator Respiratory Rate 18 Setting Ventilator Respiratory Rate 18 Setting Ventilator Respiratory Rate 18 Setting Ventilator Respiratory Rate 18 Setting Ventilator Respiratory Rate 18 Setting Ventilator Respiratory Rate 18 Setting Ventilator Respiratory Rate 18 Setting Ventilator Respiratory Rate 18 Setting Ventilator Respiratory Rate 18 Setting Ventilator Respiratory Rate 18 Setting Ventilator Respiratory Rate 18 Setting Actual Respiratory Rate 18 Actual Respiratory Rate 18 Actual Respiratory Rate 18 Actual Respiratory Rate 18 Actual Respiratory Rate 18 Actual Respiratory Rate 18 Actual Respiratory Rate 18 Actual Respiratory Rate 18 Actual Respiratory Rate 18 Actual Respiratory Rate 18 Actual Respiratory Rate 18 Positive End Expiratory 5 Pressure Positive End Expiratory 5 Pressure Positive End Expiratory 5 Pressure Positive End Expiratory 5 Pressure Positive End Expiratory 5 Pressure Positive End Expiratory 5 Pressure Positive End Expiratory 5 Pressure Positive End Expiratory 5 Pressure Positive End Expiratory 5 Pressure Positive End Expiratory 5 Pressure Positive End Expiratory 5 Pressure Positive End Expiratory 5 Pressure Positive End Expiratory 5 Pressure Peak Inspiratory Airway 34 Pressure Peak Inspiratory Airway 35 Pressure Peak Inspiratory Airway 35 Pressure Peak Inspiratory Airway 33 Pressure Peak Inspiratory Airway 33 Pressure Peak Inspiratory Airway 35 Pressure Peak Inspiratory Airway 43 Pressure Peak Inspiratory Airway 32 Pressure Peak Inspiratory Airway 30 Pressure Peak Inspiratory Airway 35 Pressure Peak Inspiratory Airway 34 Pressure Results - Laboratory Findings CBC and BMP: 06/01/17 03:30 06/01/17 03:06 ABG ABG pH 7.31 pH Units (7.32-7.45) L 06/01/17 05:37 ABG pCO2 87 mmHg (35-45) H* 06/01/17 05:37 ABG pO2 60 mmHg (85-104) L 06/01/17 05:37 ABG O2 Saturation 88 % (95-98) L 06/01/17 05:37 PT/INR, D-dimer PT 12.5 Seconds (9.4-12.1) H 05/31/17 15:15 Abnormal lab findings: Abnormal lab results RBC 3.73 M/mcL (3.82-4.97) L 06/01/17 03:30 Hgb 10.6 g/dL (11.5-15.4) L 06/01/17 03:30 MCHC 28.9 g/dL (31.6-35.5) L 06/01/17 03:30 RDW 20.3 % (11.5-14.5) H 06/01/17 03:30 Plt Count 133 K/mcL (140-400) L 06/01/17 03:30 Nucleated RBCs/100 WBC 1.1 /100 WBC (0) H 06/01/17 03:30 Reactive Lymphocytes Present (Not Present) A 06/01/17 03:30 Large Platelets Present (Not Present) A 06/01/17 03:30 Immature Plt Fraction 15.0 % (1.1-6.1) H 06/01/17 03:30 Polychromasia 1+ (Not Present) A 06/01/17 03:30 Hypochromasia Present (Not Present) A 05/30/17 03:06 Basophilic Stippling 1+ (Not Present) A 06/01/17 03:30 Anisocytosis 2+ (Not Present) A 06/01/17 03:30 PT 12.5 Seconds (9.4-12.1) H 05/31/17 15:15 ABG pH 7.31 pH Units (7.32-7.45) L 06/01/17 05:37 ABG pCO2 87 mmHg (35-45) H* 06/01/17 05:37 ABG pO2 60 mmHg (85-104) L 06/01/17 05:37 ABG HCO3 43.8 mEQ/L (21-27) H 06/01/17 05:37 ABG Total CO2 46.5 mEq/L (20-26) H 06/01/17 05:37 ABG O2 Saturation 88 % (95-98) L 06/01/17 05:37 ABG Base Excess 13.8 mEq/L (-2.0 to 3.0) H 06/01/17 05:37 VBG pH 7.50 pH Units (7.32-7.42) H 05/31/17 21:46 VBG pO2 202 mmHg (25-40) H 05/31/17 21:46 VBG HCO3 36.7 mEq/L (21-27) H 05/31/17 21:46 Mixed VBG pH 7.29 (7.34-7.36) L 05/31/17 21:46 Mixed VBG pCO2 89 mmHg (44-46) H 05/31/17 21:46 Mixed VBG pO2 73 mmHg (35-45) H 05/31/17 21:46 Mixed VBG Oxyhemoglobin 93.0 % (60-80) H 05/31/17 21:46 Potassium 4.8 mEq/L (3.5-4.5) H 06/01/17 03:06 Chloride 95 mEq/L (98-109) L 06/01/17 03:06 Carbon Dioxide 35 mEq/L (19-29) H 06/01/17 03:06 BUN 58 mg/dL (7-20) H 06/01/17 03:06 Creatinine 2.81 mg/dL (0.57-1.11) H 06/01/17 03:06 Est GFR ( Amer) 22 (> 60) L 06/01/17 03:06 Est GFR (Non-Af Amer) 18 (> 60) L 06/01/17 03:06 Glucose 113 mg/dL (70-99) H 06/01/17 03:06 POC Glucose 109 (58-89) H 05/31/17 23:44 Calculated Osmolality 307 (280-300) H 06/01/17 03:06 Ionized Calcium 0.97 mmol/L (1.15-1.35) L 06/01/17 06:45 ALT 115 Units/L (0-55) H 06/01/17 03:30 Creatine Kinase 200 Units/L (29-168) H 06/01/17 03:06 Troponin I 0.36 ng/mL (0-0.03) H* 05/29/17 15:53 Serum Total Protein 5.7 g/dL (6.0-8.3) L 06/01/17 03:30 Albumin 2.8 g/dL (3.5-5.0) L 06/01/17 03:30 Albumin/Globulin Ratio 1.0 (1.1-2.2) L 06/01/17 03:30 Urine Clarity Hazy (Clear) A 05/29/17 18:15 Ur Specific [place] 1.026 (1.010-1.025) H 05/29/17 18:15 Urine Protein 30 mg/dL (Neg-Trace) H 05/29/17 18:15 Urine Ketones Trace mg/dL (Negative) H 05/29/17 18:15 Urine Bilirubin Small (Negative) H 05/29/17 18:15 Urine Microscopic WBC 15-30 per hpf (0-3) H 05/29/17 18:15 Ur Squamous Epith Cells Many per lpf (None-Few) H 05/29/17 18:15 Amorphous Sediment Moderate (Few) H 05/29/17 18:15 Urine Bacteria Moderate per hpf (None-Few) H 05/29/17 18:15 Hyaline Casts Moderate per lpf (None-Few) H 05/29/17 18:15 Ur Culture Indicated? YES (NO) A 05/29/17 18:15 - Microbiology Findings Microbiology Findings: Microbiology, Last 48 Hours 05/29/17 18:15 Urine Culture - Final Urine,Clean Catch No pathogens isolated. - Clinical Findings Intake & Output: Intake & Output 05/31/17 05/31/17 06/01/17 15:59 23:59 07:59 Intake Total 0 / 0 250 / 250 300 / 300 Output Total 0 / 0 517 / 517 741 / 741 Balance 0 / 0 -267 / -267 -441 / -441 Weight 158.8 kg 158.6 kg - VTE Documentation of Mechanical Device: Intermittent pneumatic compression device Consult Discharge Plan - Plan Referrals: Sunny Stanley MD [Primary Care Provider] - <Ronald Stevens - Last Filed: 06/01/17 13:19> Date of Encounter: 06/01/17 Assessment and Plan (1) Acute and chronic respiratory failure Current Visit: Yes Status: Acute Qualifiers: Respiratory failure complication: hypoxia and hypercapnia Qualified Code(s) : J96.21 - Acute and chronic respiratory failure with hypoxia; J96.22 - Acute and chronic respiratory failure with hypercapnia (2) Acute on chronic renal failure Current Visit: Yes Status: Acute Qualifiers: Acute renal failure type: unspecified Chronic kidney disease stage: stage 3 (moderate) Qualified Code(s): N17.9 - Acute kidney failure, unspecified; N18.3 - Chronic kidney disease, stage 3 (moderate) (3) Moderate to severe pulmonary hypertension Current Visit: Yes Status: Chronic (4) Morbid obesity with BMI of 50.0-59.9, adult Current Visit: Yes Status: Chronic (5) Candidal intertrigo Current Visit: No Status: Acute (6) SMITA treated with BiPAP Current Visit: Yes Status: Chronic (7) Cor pulmonale Current Visit: Yes Status: Acute (8) Chronic systolic (congestive) heart failure Current Visit: Yes Status: Acute Objective PUL Vital signs: Last Vital Signs Temp 97.5 F L 06/01/17 08:00 Pulse 98 06/01/17 08:00 Resp 18 06/01/17 08:00 BP 100/53 06/01/17 08:00 Pulse Ox 92 06/01/17 08:00 Ventilator Settings Ventilator Settings: Ventilator Settings, Last 8 Hours Ventilator Mode A/C Ventilator Mode A/C Ventilator Mode A/C Ventilator Mode A/C Ventilator Mode A/C Ventilator Mode A/C Ventilator Mode A/C Ventilator Mode A/C Ventilator Mode A/C Ventilator Mode A/C Ventilator Mode A/C Ventilator Tidal Volume 450 Setting Ventilator Tidal Volume 450 Setting Ventilator Tidal Volume 450 Setting Ventilator Tidal Volume 450 Setting Ventilator Tidal Volume 450 Setting Ventilator Tidal Volume 450 Setting Ventilator Tidal Volume 450 Setting Ventilator Tidal Volume 450 Setting Ventilator Tidal Volume 450 Setting Ventilator Tidal Volume 450 Setting Ventilator Tidal Volume 450 Setting Ventilator Respiratory Rate 18 Setting Ventilator Respiratory Rate 18 Setting Ventilator Respiratory Rate 18 Setting Ventilator Respiratory Rate 18 Setting Ventilator Respiratory Rate 18 Setting Ventilator Respiratory Rate 18 Setting Ventilator Respiratory Rate 18 Setting Ventilator Respiratory Rate 18 Setting Ventilator Respiratory Rate 18 Setting Ventilator Respiratory Rate 18 Setting Ventilator Respiratory Rate 18 Setting Actual Respiratory Rate 18 Actual Respiratory Rate 18 Actual Respiratory Rate 18 Actual Respiratory Rate 18 Actual Respiratory Rate 18 Actual Respiratory Rate 18 Actual Respiratory Rate 18 Actual Respiratory Rate 18 Positive End Expiratory 8 Pressure Positive End Expiratory 8 Pressure Positive End Expiratory 5 Pressure Positive End Expiratory 5 Pressure Positive End Expiratory 5 Pressure Positive End Expiratory 5 Pressure Positive End Expiratory 5 Pressure Positive End Expiratory 5 Pressure Positive End Expiratory 5 Pressure Positive End Expiratory 5 Pressure Positive End Expiratory 5 Pressure Peak Inspiratory Airway 32 Pressure Peak Inspiratory Airway 34 Pressure Peak Inspiratory Airway 35 Pressure Peak Inspiratory Airway 35 Pressure Peak Inspiratory Airway 33 Pressure Peak Inspiratory Airway 33 Pressure Peak Inspiratory Airway 35 Pressure Peak Inspiratory Airway 43 Pressure Results - Laboratory Findings CBC and BMP: 06/01/17 03:30 06/01/17 03:06 ABG ABG pH 7.35 pH Units (7.32-7.45) 06/01/17 08:24 ABG pCO2 73 mmHg (35-45) H* 06/01/17 08:24 ABG pO2 51 mmHg (85-104) L 06/01/17 08:24 ABG O2 Saturation 84 % (95-98) L 06/01/17 08:24 PT/INR, D-dimer PT 12.5 Seconds (9.4-12.1) H 05/31/17 15:15 Abnormal lab findings: Abnormal lab results RBC 3.73 M/mcL (3.82-4.97) L 06/01/17 03:30 Hgb 10.6 g/dL (11.5-15.4) L 06/01/17 03:30 MCHC 28.9 g/dL (31.6-35.5) L 06/01/17 03:30 RDW 20.3 % (11.5-14.5) H 06/01/17 03:30 Plt Count 133 K/mcL (140-400) L 06/01/17 03:30 Nucleated RBCs/100 WBC 1.1 /100 WBC (0) H 06/01/17 03:30 Reactive Lymphocytes Present (Not Present) A 06/01/17 03:30 Large Platelets Present (Not Present) A 06/01/17 03:30 Immature Plt Fraction 15.0 % (1.1-6.1) H 06/01/17 03:30 Polychromasia 1+ (Not Present) A 06/01/17 03:30 Hypochromasia Present (Not Present) A 05/30/17 03:06 Basophilic Stippling 1+ (Not Present) A 06/01/17 03:30 Anisocytosis 2+ (Not Present) A 06/01/17 03:30 PT 12.5 Seconds (9.4-12.1) H 05/31/17 15:15 ABG pCO2 73 mmHg (35-45) H* 06/01/17 08:24 ABG pO2 51 mmHg (85-104) L 06/01/17 08:24 ABG HCO3 40.3 mEQ/L (21-27) H 06/01/17 08:24 ABG Total CO2 42.5 mEq/L (20-26) H 06/01/17 08:24 ABG O2 Saturation 84 % (95-98) L 06/01/17 08:24 ABG Base Excess 12.2 mEq/L (-2.0 to 3.0) H 06/01/17 08:24 VBG pH 7.50 pH Units (7.32-7.42) H 05/31/17 21:46 VBG pO2 202 mmHg (25-40) H 05/31/17 21:46 VBG HCO3 36.7 mEq/L (21-27) H 05/31/17 21:46 Mixed VBG pH 7.29 (7.34-7.36) L 05/31/17 21:46 Mixed VBG pCO2 89 mmHg (44-46) H 05/31/17 21:46 Mixed VBG pO2 73 mmHg (35-45) H 05/31/17 21:46 Mixed VBG Oxyhemoglobin 93.0 % (60-80) H 05/31/17 21:46 Potassium 4.8 mEq/L (3.5-4.5) H 06/01/17 03:06 Chloride 95 mEq/L (98-109) L 06/01/17 03:06 Carbon Dioxide 35 mEq/L (19-29) H 06/01/17 03:06 BUN 58 mg/dL (7-20) H 06/01/17 03:06 Creatinine 2.81 mg/dL (0.57-1.11) H 06/01/17 03:06 Est GFR ( Amer) 22 (> 60) L 06/01/17 03:06 Est GFR (Non-Af Amer) 18 (> 60) L 06/01/17 03:06 Glucose 113 mg/dL (70-99) H 06/01/17 03:06 POC Glucose 145 (58-89) H 06/01/17 07:34 Calculated Osmolality 307 (280-300) H 06/01/17 03:06 Ionized Calcium 0.97 mmol/L (1.15-1.35) L 06/01/17 06:45 ALT 115 Units/L (0-55) H 06/01/17 03:30 Creatine Kinase 200 Units/L (29-168) H 06/01/17 03:06 Troponin I 0.36 ng/mL (0-0.03) H* 05/29/17 15:53 Serum Total Protein 5.7 g/dL (6.0-8.3) L 06/01/17 03:30 Albumin 2.8 g/dL (3.5-5.0) L 06/01/17 03:30 Albumin/Globulin Ratio 1.0 (1.1-2.2) L 06/01/17 03:30 Urine Clarity Hazy (Clear) A 05/29/17 18:15 Ur Specific [place] 1.026 (1.010-1.025) H 05/29/17 18:15 Urine Protein 30 mg/dL (Neg-Trace) H 05/29/17 18:15 Urine Ketones Trace mg/dL (Negative) H 05/29/17 18:15 Urine Bilirubin Small (Negative) H 05/29/17 18:15 Urine Microscopic WBC 15-30 per hpf (0-3) H 05/29/17 18:15 Ur Squamous Epith Cells Many per lpf (None-Few) H 05/29/17 18:15 Amorphous Sediment Moderate (Few) H 05/29/17 18:15 Urine Bacteria Moderate per hpf (None-Few) H 05/29/17 18:15 Hyaline Casts Moderate per lpf (None-Few) H 05/29/17 18:15 Ur Culture Indicated? YES (NO) A 05/29/17 18:15 - Microbiology Findings Microbiology Findings: Microbiology, Last 48 Hours 05/29/17 18:15 Urine Culture - Final Urine,Clean Catch No pathogens isolated. - Clinical Findings Intake & Output: Intake & Output 05/31/17 06/01/17 06/01/17 23:59 07:59 15:59 Intake Total 250 / 250 300 / 300 0 / 0 Output Total 517 / 517 741 / 741 158 / 158 Balance -267 / -267 -441 / -441 -158 / -158 Weight 158.6 kg - Attending Attestation I examined this patient and my medical decision-making was reviewed with the HEALTH RESEARCHER/PA/Advanced Practice Nurse/Resident Physician. I agree with the documented findings, disposition and treatment plan as described except to the extent set forth below. I spent 35min of Critical Care time with this patient. It involved decision making of high complexity to assess, manipulate, and support vital organ system failure and/or to prevent further life threatening deterioration of the patient' s condition. The time involved in the performance of separately reportable procedures was not counted toward critical care time. Patient seen and examined at bedside Labs, radiology, chart personally reviewed. All lines examined without evidence of infection. Neuropsych: sedated on vent Goal BYRON score 3. Moves all exts and awakens to voice at this time. Daily sedation holiday Pulm: Acute on chronic hypoxic hypercarbic respiratory failure obesity hypoventilation syndrome obstructive sleep apnea. Intubated for worsening hypercapnic respiratory failure yesterday marketed improvement overnight with ventilation remains severely hypoxic and suspect that this is a long-standing phenomenon hesitant to use high levels of PEEP given right heart dysfunction currently requiring 70% FiO2 to maintain PaO2 greater than 55 we will continue to adjust over the course of the day. Concern exists for VTE cannot do CTA start empiric heparin. LE Duplex pending. Monitor H/H Cards: Decompensated right heart failure encouragingly appears that for her forward flow has improved over the course of the evening and amount of vasopressor has been decreased inotrope started overnight improvement in urine output lactate remains normal. I have discussed the case with health nurse who agrees with current management repeat limited echocardiogram today to evaluate RV/LV function FEN-GI: Nothing by mouth for now PPI prophylaxis given Renal: Acute on chronic kidney insufficiency started on continuous renal replacement therapy yesterday discuss with nephrology with improvement in urine output can likely discontinue this later in the evening we will continue to monitor urine output considered diuresis with loop diuretic tomorrow will need twice daily renal function panel to monitor electrolytes which will be replaced per protocol ID: NO CURRENT EVIDENCE OF INFECTION WE WILL CONTINUE TO MONITOR Heme/Onc: DVT prophylaxis given H&H and platelets are stable Endo: glucose monitor Integ/MSK: skin care per nursing protocol CODE: Full
[2017-06-01] MEDS: Insulin LISPRO 300 UNITS/3 ML VIAL SQ SCH ×7 (07:37→21:53)
[2017-06-01 08:33] LABS: ABG Base Excess 12.2 mEq/L (-2.0 to 3.0); ABG HCO3 40.3 mEQ/L (21-27); ABG Oxygen Saturation 84 % (95-98); ABG PH 7.35 pH Units (7.32-7.45); ABG PO2 51 mmHg (85-104); ABG TCO2 42.5 mEq/L (20-26)
[2017-06-01 08:34] LABS: Blood Gas FiO2 60 %
[2017-06-01 08:35] LABS: ABG PCO2 73 mmHg (35-45)
[2017-06-01] MEDS: Calcium Gluconate 1,000 MG in D5% in Water 100 ML IVPB PRN ×2 (08:35→12:52)
[2017-06-01] MEDS: Furosemide 40 MG/4 ML VIAL IVP SCH (08:38)
--- NOTE | 2017-06-01 08:59 | Nephrology Progress Note ---
Date of Encounter: 06/01/17 Time of Encounter: 08:57 - Assessment and Plan (1) Acute on chronic renal failure Current Visit: Yes Status: Acute Scr improving 3.75>>2.81 last 24 hours has made 1000cc urine Potassium decreased 5.6>>4.8 On YOLI: goal overnight was to have net 0 fluid balance to prevent hypotension. BP stable overnight: on milrinone and norephinephrine Plan: Continue CVVHDF Dialysate/Replacement fluid: 4K/2.5 @1250cc/hr Anticoagulation: citrate w/ Ca2+ gtt Volume status: Fluid removal goal +50cc/hr Access right IJ With improvement in hemodynamics, and patient is now producing urine.Will hold YOLI at 5PM. If filter clots before hand it may be replaced. However, it is concerning that patient is requiring increased PEEP and FIO2 and may need assistance with fluid removal. If urine output continues to be consistent overnight, will challenge patient with diuretics. Avoid nephrotoxic drugs: bacrtim, NSAID Qualifiers: Acute renal failure type: unspecified Chronic kidney disease stage: stage 3 (moderate) Qualified Code(s): N17.9 - Acute kidney failure, unspecified; N18.3 - Chronic kidney disease, stage 3 (moderate) (2) Acute and chronic respiratory failure Current Visit: Yes Status: Acute On mechanical ventilation management as per pulm/critical care Qualifiers: Respiratory failure complication: hypoxia and hypercapnia Qualified Code(s) : J96.21 - Acute and chronic respiratory failure with hypoxia; J96.22 - Acute and chronic respiratory failure with hypercapnia (3) Shock Current Visit: Yes Status: Acute On norepinephrine and milrinone BP stable throughout night and while on YOLI. (4) Metabolic alkalosis with respiratory acidosis Current Visit: Yes Status: Acute 2nd to long standing hx of COPD and sleep apnea on mechanical ventilation. mangement as per primary (5) Cor pulmonale Current Visit: Yes Status: Acute (6) Hyperkalemia Current Visit: Yes Status: Acute Subjective Principal diagnosis: Respiratory insufficiency Interval history: Yesterday patient was intubated and started on mechanical ventilation. YOLI was started around 2100. Patient has made 1000 cc urine in the last 12 hours. Objective - Vital Signs Vital signs: Vital Signs Temp Pulse Resp BP Pulse Ox 06/01/17 08:00 97.5 F L 98 18 100/53 92 06/01/17 07:39 18 100/53 91 06/01/17 07:00 100 18 95/52 95 06/01/17 06:00 103 18 95/51 94 06/01/17 05:00 97 18 91/51 97 06/01/17 04:00 97.0 F L 97 18 91/52 97 06/01/17 03:50 18 84/48 96 06/01/17 03:00 91 18 100/56 96 06/01/17 02:00 95 18 115/62 99 06/01/17 01:22 18 102/52 95 06/01/17 01:00 93 18 91/51 96 06/01/17 00:00 97.7 F 89 18 118/66 98 05/31/17 23:45 18 96/55 96 05/31/17 23:00 93 18 106/57 97 05/31/17 22:00 87 18 106/61 95 05/31/17 21:32 18 96/56 96 05/31/17 21:00 90 18 113/70 97 05/31/17 20:00 97.7 F 83 18 129/71 100 05/31/17 19:52 18 135/74 100 05/31/17 19:00 89 18 136/76 100 05/31/17 18:18 99 12 91/48 97 05/31/17 18:12 18 94 05/31/17 17:00 106 19 107/53 97 05/31/17 16:50 17 120/63 97 05/31/17 15:42 97.5 F L 05/31/17 15:00 105 05/31/17 14:59 111 19 99/43 97 05/31/17 13:05 103 20 92/59 95 05/31/17 12:05 105 19 84/55 92 05/31/17 11:49 20 68/53 91 05/31/17 11:20 98 20 79/36 91 05/31/17 11:00 105 05/31/17 10:50 104 20 69/58 91 05/31/17 10:35 103 20 74/46 91 05/31/17 10:20 96.6 F L 103 20 65/34 88 Intake and Output 05/31/17 06/01/17 06/01/17 23:59 07:59 15:59 Intake Total 250 / 250 300 / 300 0 / 0 Output Total 517 / 517 741 / 741 158 / 158 Balance -267 / -267 -441 / -441 -158 / -158 Intake: IV Fluids 250 / 250 300 / 300 Calcium Chloride 4,000 MG 0 / 0 In 0.9 % Sodium Chloride 1,000 ML @ 40 mls/hr CRRT [facility] Rx#: [id number] FentaNYL (PF) 1,000 MCG 100 / 100 In 0.9 % Sodium Chloride 80 ML @ 50 MCG/HR 5 mls/ hr IVC [facility] [place] Rx#: [id number] Versed 50 MG In 0.9 % 100 / 100 Sodium Chloride 90 ML @ 2 MG/HR 4 mls/hr [facility]C [facility] [place] Rx#:[id number] Primacor Premix 20 MG/100 100 / 100 ML 20 mg In 100 ml @ 0. 25 MCG/KG/MIN 11.91 mls/ hr IVC .[id number] [place] Rx#: [id number] Levophed 4 MG In Dextrose 250 / 250 5% 250 ML @ 2 MCG/MIN 7. 5 mls/hr IVC [facility] Rx# :[id number] Oral 0 / 0 0 / 0 0 / 0 Output: Yoli 13 / 13 269 / 269 83 / 83 Catheter 504 / 504 472 / 472 75 / 75 Other: Weight 158.6 kg Blood Glucose* 142 107 145 Patient Weight 06/01/17 23:59 Weight 158.6 kg - General Appearance General appearance: Present: sedated on ventilator, intubated Additional Comments: JVD not appreciated due to thick neck. Right Temporary dialysis catheter. Respiratory: Present: clear Cardiology: Present: edema (2+), regular rhythm, normal S1, normal S2 Additional Comments: difficult to identify bowel sounds due to large belly. Large paniuclus. Integumentary: Present: no rash, warm and dry - Lab 06/01/17 03:30 06/01/17 03:06 Most recent lab results ABG pH 7.35 pH Units (7.32-7.45) 06/01/17 08:24 ABG pCO2 73 mmHg (35-45) H* 06/01/17 08:24 ABG pO2 51 mmHg (85-104) L 06/01/17 08:24 ABG HCO3 40.3 mEQ/L (21-27) H 06/01/17 08:24 ABG O2 Saturation 84 % (95-98) L 06/01/17 08:24 Calcium 8.8 mg/dL (8.6-10.8) 06/01/17 03:06 Phosphorus 4.3 mg/dL (2.3-4.7) 06/01/17 03:06 Magnesium 1.8 mg/dL (1.6-2.6) 06/01/17 03:06 - VTE Documentation of Mechanical Device: Intermittent pneumatic compression device Consult Discharge Plan - Plan Referrals: Sunny Stanley MD [Primary Care Provider] -
[2017-06-01] MEDS: Nystatin POWDER 30 GM BOTTLE TP SCH ×2 (09:39→21:53)
--- NOTE | 2017-06-01 09:48 | Cardiology Progress Note ---
Date of Encounter: 06/01/17 Time of Encounter: 09:46 Assessment and Plan (1) Elevated troponin Current Visit: Yes Status: Inactive Mildly elevated troponin in setting of morbid obesity with chronic respiratory insufficiency, BLANCA. Suspect demand ischemia. Presentation is not c/w ACS. Limited echocardiogram - LV function remains normal, RV enlargment/hypokinesis remains. No further recommendations re: troponin elevation. (2) Cor pulmonale Current Visit: Yes Status: Acute Patient presents with acute on chronic respiratory insufficiency. Known severe pulmonary hypertension in setting of morbid obesity - primary, secondary workup never done to my knowledge. TTEs demonstrate evidence of cor pulmonale - enlargement and failure of right heart as a response to pulmonary HTN. Transaminitis possibly related to passive congestion. Atorvastatin stopped. Now on levophed/milrinone. Urine output has improved. Negative fluid balance would be goal as hemodynamics tolerate - this would help to unload ventricle. If hemodynamics improve, afterload reduction would be helpful. Prognosis remains guarded. Consider tertiary center evaluation pending her response to above therapy. (3) BLANCA (acute kidney injury) Current Visit: Yes Status: Acute BLANCA with associated hyperkalemia. Likely related to ATN and cardiopulmonary issues above (reduced cardiac output, hypotension). Yoli started yesterday. Now on pressors with improved urine output. Cr improved from yesterday. Discussion w patient/family: The assessment and plan as outlined above was discussed with the patient and/or family members who expressed understanding and agreement. All questions were answered. Thank you for involving us in the care of your patient. Please call with any questions. Subjective Principal diagnosis: Respiratory insufficiency Interval history: Events overnight noted. Patient intubated, placed on levophed and milrinone. Also started on Yoli. Increae in urine output. Hemodynamics stable/improved BP with pressors. Cr 2.67, 2.94, 3.75, 2.81. Objective Vital Signs, Last 4 Hours Temp Pulse Resp BP Pulse Ox 06/01/17 09:00 98 16 119/64 96 06/01/17 08:00 97.5 F L 98 18 100/53 92 06/01/17 07:39 18 100/53 91 06/01/17 07:00 100 18 95/52 95 06/01/17 06:00 103 18 95/51 94 General: Other (Intubated sedated) HEENT: Atraumatic, Normocephaly, Mucus Membranes Moist Neck: Other (Large neck) Cardiac: Reg Rate and Rhythm, Other (Distant) Lungs: Other (Shallow, clear) Neuro: Other (Sedated) Abdomen: Soft, Non-Tender, Other (obese) Skin: No rashes noted on visualized skin Extremities: Other (Edema bilterall) Results 06/01/17 03:30 06/01/17 03:06 Lab Results 05/31/17 05/31/17 06/01/17 15:10 15:15 03:06 WBC Hgb Hct Plt Count INR 1.2 Sodium 140 Potassium 4.8 H Chloride 95 L Carbon Dioxide 35 H BUN 58 H Creatinine 2.81 H Glucose 113 H Calcium 8.9 8.8 Magnesium 1.8 Total Bilirubin AST ALT Alkaline Phosphatase 06/01/17 06/01/17 03:30 03:30 WBC 7.9 Hgb 10.6 L Hct 36.7 Plt Count 133 L INR Sodium Potassium Chloride Carbon Dioxide BUN Creatinine Glucose Calcium Magnesium Total Bilirubin 0.8 AST 34 ALT 115 H Alkaline Phosphatase 92 - Imaging and Cardiology Echo: report reviewed - VTE Documentation of Mechanical Device: Intermittent pneumatic compression device Consult Discharge Plan - Plan Referrals: Sunny Stanley MD [Primary Care Provider] -
[2017-06-01] MEDS: Cholecalciferol (D-3) 1,000 UNIT TABLET PO SCH (09:52)
[2017-06-01] MEDS: Aspirin 81 MG TAB.CHEW PO SCH (09:52)
[2017-06-01] MEDS: Gabapentin 100 MG CAPSULE PO SCH ×3 (09:52→21:52)
[2017-06-01] MEDS: Nystatin OINT 15 GM TUBE TP SCH ×4 (09:52→21:53)
[2017-06-01] MEDS: Tiotropium 18 MCG inhalation IH SCH (10:04)
[2017-06-01] MEDS: Norepinephrine 4 MG in D5% in Water 250 ML IVC SCH ×2 (10:57→19:53)
[2017-06-01 11:54] LABS: ABG Base Excess 11.1 mEq/L (-2.0 to 3.0); ABG HCO3 39.5 mEQ/L (21-27); ABG Oxygen Saturation 97 % (95-98); ABG PH 7.33 pH Units (7.32-7.45); ABG PO2 94 mmHg (85-104); ABG TCO2 41.8 mEq/L (20-26); Blood Gas FiO2 70 %
[2017-06-01 11:55] LABS: ABG PCO2 75 mmHg (35-45)
[2017-06-01] MEDS: Heparin 25,000 UNIT/500 ML D5W 25,000 UNIT/500 ML MLS IVC SCH (15:14)
[2017-06-01] MEDS ORDERED: Potassium Phosphate 44 MEQ in 0.9 % Sodium Chloride 250 ML IVPB PRN (15:34)
[2017-06-01] MEDS ORDERED: Potassium Chloride 40 MEQ/200 ML BAG IVPB PRN (15:34)
[2017-06-01] MEDS ORDERED: Lacri-Lube 3.5 GM TUBE BOTH EYES PRN (15:37)
[2017-06-01] MEDS: Pantoprazole 40 MG VIAL IVP SCH (15:39)
[2017-06-01] MEDS: Lacri-Lube 3.5 GM TUBE BOTH EYES SCH ×2 (16:35→21:52)
[2017-06-01 17:08] LABS: ABG HCO3 42.6 mEQ/L (21-27); ABG Oxygen Saturation 83 % (95-98); ABG PH 7.34 pH Units (7.32-7.45)
[2017-06-01 17:09] LABS: Blood Gas FiO2 60 %
[2017-06-01 17:12] LABS: ABG PCO2 79 mmHg (35-45); ABG PO2 50 mmHg (85-104)
[2017-06-01] MEDS: Magnesium Sulfate 2 GM in D5% in Water 100 ML IVPB PRN (17:19)
[2017-06-01] MEDS: Chlorhexidine Rinse 15 ML MOUTHWASH MM SCH (21:52)
[2017-06-01] MEDS: Insulin DETEMIR 100 UNIT/ML X5UNITS SQ SCH (21:53)
[2017-06-02] MEDS: Lacri-Lube 3.5 GM TUBE BOTH EYES SCH ×7 (00:37→23:37)
[2017-06-02] MEDS: Heparin 25,000 UNIT/500 ML D5W 25,000 UNIT/500 ML MLS IVC SCH ×2 (02:20→14:58)
[2017-06-02] MEDS: FentaNYL (PF) 1,000 MCG in 0.9 % Sodium Chloride 80 ML IVC SCH ×2 (02:27→19:49)
[2017-06-02] MEDS: Norepinephrine 4 MG in D5% in Water 250 ML IVC SCH ×2 (03:15→10:29)
[2017-06-02 04:22] LABS: ABG Base Excess 15.5 mEq/L (-2.0 to 3.0); ABG Oxygen Saturation 92 % (95-98); ABG PH 7.39 pH Units (7.32-7.45); ABG PO2 64 mmHg (85-104); ABG TCO2 45.2 mEq/L (20-26)
[2017-06-02 04:23] LABS: ABG PCO2 71 mmHg (35-45); Blood Gas FiO2 70 %
[2017-06-02 04:39] LABS: Basophils % 0.1 %; Eosinophils # 0.1 K/mcL (0.0-0.6); Eosinophils % 1.2 %; Hematocrit 31.6 % (35.3-44.9); Hemoglobin 9.2 g/dL (11.5-15.4); Immature Granulocytes % 0.3 % (0-4); Lymphocytes # 1.1 K/mcL (0.6-4.6); Lymphocytes % 14.4 %; Mean Corpuscular HGB Conc 29.1 g/dL (31.6-35.5); Mean Corpuscular Hemoglobin 28.1 pg (28.0-33.3); Mean Corpuscular Volume 96.6 fL (83.0-100.0); Monocytes # 0.5 K/mcL (0.0-1.3); Neutrophils # 5.9 K/mcL (1.6-8.9); Nucleated Red Blood Cells 0.4 /100 WBC (0); Platelet Count 148 K/mcL (140-400); Red Blood Count 3.27 M/mcL (3.82-4.97); Red Cell Distribution Width 20.3 % (11.5-14.5)
[2017-06-02 04:44] LABS: Ionized Calcium 1.16 mmol/L (1.15-1.35)
[2017-06-02 04:50] LABS: Calcium 8.7 mg/dL (8.6-10.8); Magnesium 1.9 mg/dL (1.6-2.6); Phosphorous 3.3 mg/dL (2.3-4.7); Potassium 4.7 mEq/L (3.5-4.5)
[2017-06-02] MEDS: SODIUM CHLORIDE 0.9% IVPB SCH ×2 (05:00→14:56)
[2017-06-02] MEDS: MILRINONE IVPB SCH ×2 (05:00→14:56)
[2017-06-02] MEDS: Tiotropium 18 MCG inhalation IH SCH (07:36)
[2017-06-02] MEDS: Calcium Chloride 4,000 MG in 0.9 % Sodium Chloride 1,000 ML CRRT SCH ×2 (07:37→20:14)
--- NOTE | 2017-06-02 07:41 | Venous Imaging Report ---
LE Venous Duplex Patient Name:Glenis Corbett Order Number:[id number] Procedure Date:06/01/2017 Date:1970Age:46 yrs Gender:Female Location:[facility] Room #: IC7 Locker Room Manager:Romina Marsh RVT Referring MD:Nell Lagunas DO e business project manager:Sunny Stanley MD Reading MD:Iván Handley MD Secondary Indications: Impressions: Normal right lower extremity deep venous exam. Acute superficial venous thrombosis is present in the right greater saphenous vein. Normal left lower extremity deep venous exam. Acute superficial venous thrombosis is present in the left greater saphenous vein. Normal contralateral common femoral vein. Recommendations: Test completed on 06/01/2017 at 2:51:26 pm. Critical findings reported to Mela Thomas RN in person at 2:51:31 pm on 06/01/2017 by Romina Marsh RVT. Findings Prior Study: No prior study available for comparison. Lower Extremity Venous Duplex Side Vein Compress Spontaneous Flow Augment Diameter (cm) Depth (cm) Right Distal Iliac Right Common Femoral Right Great Saphenous None Absent Left Distal Iliac Left Common Femoral Left Superficial Femoral Left Great Saphenous None Absent Updated by Iván Handley MD on 06/02/2017 7:37:25 AM electronically signed on 06/02/2017 7:37:44 AM with status of Final
[2017-06-02] MEDS ORDERED: Furosemide 40 MG/4 ML VIAL IVP ONE ×2 (07:53→13:35)
--- NOTE | 2017-06-02 07:59 | Pulmonology Progress Note ---
<Nell Lagunas - Last Filed: 06/02/17 07:59> Date of Encounter: 06/02/17 Time of Encounter: 07:59 Assessment and Plan (1) Acute and chronic respiratory failure Current Visit: Yes Status: Acute Patient initially presented to the hospital status post fall. She subsequently was found to have an increased troponin and to be in rhabdomyolysis. She began having respiratory distress. She was placed on BiPAP. She was emergently intubated yesterday for acute on chronic respiratory failure. She does have a history of coronary hypertension as well as decompensated right heart failure. She is currently intubated on a ventilator. She is being sedated with Versed as well as fentanyl. She is on milrinone as well as Levothroid. She is currently getting Yoli as well. Her urine output has increased overnight. Her creatinine is also improving. Nephrology is on board. We will continue Yoli throughout the day. We will continue to have her on the ventilator. Plan: Wean pressors as tolerated. Continue Yoli today per nephrology. We will stop Yoli this evening and reevaluate her I's and the morning. Continue to monitor urine output. Echo today. Heparin subcutaneous for DVT prophylaxis. Qualifiers: Respiratory failure complication: hypoxia and hypercapnia Qualified Code(s) : J96.21 - Acute and chronic respiratory failure with hypoxia; J96.22 - Acute and chronic respiratory failure with hypercapnia (2) Acute on chronic renal failure Current Visit: Yes Status: Acute Nephrology on board. Plan: Continue Yoli today. Stop this evening. We will re-evaluate electrolytes in the morning. Qualifiers: Acute renal failure type: unspecified Chronic kidney disease stage: stage 3 (moderate) Qualified Code(s): N17.9 - Acute kidney failure, unspecified; N18.3 - Chronic kidney disease, stage 3 (moderate) (3) Chronic systolic (congestive) heart failure Current Visit: Yes Status: Acute Plan as above (4) Cor pulmonale Current Visit: Yes Status: Acute (5) Moderate to severe pulmonary hypertension Current Visit: Yes Status: Chronic (6) Morbid obesity with BMI of 50.0-59.9, adult Current Visit: Yes Status: Chronic (7) SMITA treated with BiPAP Current Visit: Yes Status: Chronic (8) Candidal intertrigo Current Visit: No Status: Acute Subjective Principal diagnosis: Respiratory insufficiency Interval history: Patient stable overnight. She has been fluctuating on her needs for vasopressors. Milrinone was added overnight. She is easily responsive to stimulus. She is currently intubated and on the ventilator. She is sedated with fentanyl as well as Versed. She is currently on Yoli. We will continue this throughout the day. Her urine output has increased. The Miller was changed last night. After a new one was placed 300 mL out. She has had at least 30mL out each hour overnight. We will continue the patient on Yoli today and attempt to wean pressors as tolerated. Objective PUL Vital signs: Last Vital Signs Temp 98.9 F 06/02/17 04:00 Pulse 103 06/02/17 07:00 Resp 18 06/02/17 07:37 BP 85/62 06/02/17 07:37 Pulse Ox 91 06/02/17 07:37 Ventilator Settings Ventilator Settings: Ventilator Settings, Last 8 Hours Ventilator Mode A/C Ventilator Mode A/C Ventilator Mode A/C Ventilator Mode A/C Ventilator Mode A/C Ventilator Mode A/C Ventilator Mode A/C Ventilator Mode A/C Ventilator Mode A/C Ventilator Mode A/C Ventilator Mode A/C Ventilator Mode A/C Ventilator Mode A/C Ventilator Mode A/C Ventilator Tidal Volume 450 Setting Ventilator Tidal Volume 450 Setting Ventilator Tidal Volume 450 Setting Ventilator Tidal Volume 450 Setting Ventilator Tidal Volume 450 Setting Ventilator Tidal Volume 450 Setting Ventilator Tidal Volume 450 Setting Ventilator Tidal Volume 450 Setting Ventilator Tidal Volume 450 Setting Ventilator Tidal Volume 450 Setting Ventilator Tidal Volume 450 Setting Ventilator Tidal Volume 450 Setting Ventilator Tidal Volume 450 Setting Ventilator Tidal Volume 450 Setting Ventilator Respiratory Rate 16 Setting Ventilator Respiratory Rate 16 Setting Ventilator Respiratory Rate 16 Setting Ventilator Respiratory Rate 16 Setting Ventilator Respiratory Rate 16 Setting Ventilator Respiratory Rate 16 Setting Ventilator Respiratory Rate 16 Setting Ventilator Respiratory Rate 16 Setting Ventilator Respiratory Rate 16 Setting Ventilator Respiratory Rate 16 Setting Ventilator Respiratory Rate 16 Setting Ventilator Respiratory Rate 16 Setting Ventilator Respiratory Rate 16 Setting Ventilator Respiratory Rate 16 Setting Actual Respiratory Rate 16 Actual Respiratory Rate 16 Actual Respiratory Rate 16 Actual Respiratory Rate 16 Actual Respiratory Rate 16 Actual Respiratory Rate 16 Actual Respiratory Rate 16 Actual Respiratory Rate 16 Actual Respiratory Rate 16 Actual Respiratory Rate 16 Actual Respiratory Rate 16 Actual Respiratory Rate 16 Actual Respiratory Rate 16 Positive End Expiratory 8 Pressure Positive End Expiratory 8 Pressure Positive End Expiratory 8 Pressure Positive End Expiratory 8 Pressure Positive End Expiratory 8 Pressure Positive End Expiratory 8 Pressure Positive End Expiratory 8 Pressure Positive End Expiratory 8 Pressure Positive End Expiratory 8 Pressure Positive End Expiratory 8 Pressure Positive End Expiratory 8 Pressure Positive End Expiratory 8 Pressure Positive End Expiratory 8 Pressure Positive End Expiratory 8 Pressure Peak Inspiratory Airway 36 Pressure Peak Inspiratory Airway 33 Pressure Peak Inspiratory Airway 35 Pressure Peak Inspiratory Airway 35 Pressure Peak Inspiratory Airway 37 Pressure Peak Inspiratory Airway 35 Pressure Peak Inspiratory Airway 38 Pressure Peak Inspiratory Airway 37 Pressure Peak Inspiratory Airway 38 Pressure Peak Inspiratory Airway 38 Pressure Peak Inspiratory Airway 37 Pressure Peak Inspiratory Airway 41 Pressure Peak Inspiratory Airway 37 Pressure Results - Laboratory Findings CBC and BMP: 06/02/17 04:20 06/02/17 04:20 ABG ABG pH 7.39 pH Units (7.32-7.45) 06/02/17 04:00 ABG pCO2 71 mmHg (35-45) H* 06/02/17 04:00 ABG pO2 64 mmHg (85-104) L 06/02/17 04:00 ABG O2 Saturation 92 % (95-98) L 06/02/17 04:00 PT/INR, D-dimer PT 12.5 Seconds (9.4-12.1) H 05/31/17 15:15 Abnormal lab findings: Abnormal lab results RBC 3.27 M/mcL (3.82-4.97) L 06/02/17 04:20 Hgb 9.2 g/dL (11.5-15.4) L 06/02/17 04:20 Hct 31.6 % (35.3-44.9) L 06/02/17 04:20 MCHC 29.1 g/dL (31.6-35.5) L 06/02/17 04:20 RDW 20.3 % (11.5-14.5) H 06/02/17 04:20 MPV 13.0 fL (9.4-12.4) H 06/02/17 04:20 Nucleated RBCs/100 WBC 0.4 /100 WBC (0) H 06/02/17 04:20 Reactive Lymphocytes Present (Not Present) A 06/01/17 03:30 Large Platelets Present (Not Present) A 06/01/17 03:30 Immature Plt Fraction 15.0 % (1.1-6.1) H 06/01/17 03:30 Polychromasia 1+ (Not Present) A 06/01/17 03:30 Hypochromasia Present (Not Present) A 05/30/17 03:06 Basophilic Stippling 1+ (Not Present) A 06/01/17 03:30 Anisocytosis 2+ (Not Present) A 06/01/17 03:30 PT 12.5 Seconds (9.4-12.1) H 05/31/17 15:15 APTT 70.0 Seconds (26.0-36.0) H D 06/02/17 01:12 ABG pCO2 71 mmHg (35-45) H* 06/02/17 04:00 ABG pO2 64 mmHg (85-104) L 06/02/17 04:00 ABG HCO3 43.0 mEQ/L (21-27) H 06/02/17 04:00 ABG Total CO2 45.2 mEq/L (20-26) H 06/02/17 04:00 ABG O2 Saturation 92 % (95-98) L 06/02/17 04:00 ABG Base Excess 15.5 mEq/L (-2.0 to 3.0) H 06/02/17 04:00 VBG pH 7.50 pH Units (7.32-7.42) H 05/31/17 21:46 VBG pO2 202 mmHg (25-40) H 05/31/17 21:46 VBG HCO3 36.7 mEq/L (21-27) H 05/31/17 21:46 Mixed VBG pH 7.29 (7.34-7.36) L 05/31/17 21:46 Mixed VBG pCO2 89 mmHg (44-46) H 05/31/17 21:46 Mixed VBG pO2 73 mmHg (35-45) H 05/31/17 21:46 Mixed VBG Oxyhemoglobin 93.0 % (60-80) H 05/31/17 21:46 Potassium 4.7 mEq/L (3.5-4.5) H 06/02/17 04:20 Carbon Dioxide 34 mEq/L (19-29) H 06/02/17 04:20 BUN 46 mg/dL (7-20) H D 06/02/17 04:20 Creatinine 1.75 mg/dL (0.57-1.11) H 06/02/17 04:20 Est GFR ( Amer) 38 (> 60) L 06/02/17 04:20 Est GFR (Non-Af Amer) 32 (> 60) L 06/02/17 04:20 Glucose 141 mg/dL (70-99) H 06/02/17 04:20 POC Glucose 161 (58-89) H 06/02/17 07:39 ALT 115 Units/L (0-55) H 06/01/17 03:30 Creatine Kinase 200 Units/L (29-168) H 06/01/17 03:06 Troponin I 0.36 ng/mL (0-0.03) H* 05/29/17 15:53 Serum Total Protein 5.7 g/dL (6.0-8.3) L 06/01/17 03:30 Albumin 2.8 g/dL (3.5-5.0) L 06/01/17 03:30 Albumin/Globulin Ratio 1.0 (1.1-2.2) L 06/01/17 03:30 Urine Clarity Hazy (Clear) A 05/29/17 18:15 Ur Specific [place] 1.026 (1.010-1.025) H 05/29/17 18:15 Urine Protein 30 mg/dL (Neg-Trace) H 05/29/17 18:15 Urine Ketones Trace mg/dL (Negative) H 05/29/17 18:15 Urine Bilirubin Small (Negative) H 05/29/17 18:15 Urine Microscopic WBC 15-30 per hpf (0-3) H 05/29/17 18:15 Ur Squamous Epith Cells Many per lpf (None-Few) H 05/29/17 18:15 Amorphous Sediment Moderate (Few) H 05/29/17 18:15 Urine Bacteria Moderate per hpf (None-Few) H 05/29/17 18:15 Hyaline Casts Moderate per lpf (None-Few) H 05/29/17 18:15 Ur Culture Indicated? YES (NO) A 05/29/17 18:15 - Clinical Findings Intake & Output: Intake & Output 06/01/17 06/01/17 06/02/17 15:59 23:59 07:59 Intake Total 1710 / 1710 614 / 614 850 / 850 Output Total 1092 / 1092 340 / 340 250 / 250 Balance 618 / 618 274 / 274 600 / 600 Weight 162.52 kg - VTE Documentation of Mechanical Device: Intermittent pneumatic compression device Consult Discharge Plan - Plan Referrals: Sunny Stanley MD [Primary Care Provider] - <Alejandro Stevensolas W - Last Filed: 06/02/17 12:31> Date of Encounter: 06/02/17 Assessment and Plan (1) Acute and chronic respiratory failure Current Visit: Yes Status: Acute Qualifiers: Respiratory failure complication: hypoxia and hypercapnia Qualified Code(s) : J96.21 - Acute and chronic respiratory failure with hypoxia; J96.22 - Acute and chronic respiratory failure with hypercapnia (2) Acute on chronic renal failure Current Visit: Yes Status: Acute Qualifiers: Acute renal failure type: unspecified Chronic kidney disease stage: stage 3 (moderate) Qualified Code(s): N17.9 - Acute kidney failure, unspecified; N18.3 - Chronic kidney disease, stage 3 (moderate) (3) Moderate to severe pulmonary hypertension Current Visit: Yes Status: Chronic (4) Morbid obesity with BMI of 50.0-59.9, adult Current Visit: Yes Status: Chronic (5) Candidal intertrigo Current Visit: No Status: Acute (6) SMITA treated with BiPAP Current Visit: Yes Status: Chronic (7) Cor pulmonale Current Visit: Yes Status: Acute (8) Chronic systolic (congestive) heart failure Current Visit: Yes Status: Acute Objective PUL Vital signs: Last Vital Signs Temp 99.7 F H 06/02/17 08:10 Pulse 103 06/02/17 07:00 Resp 18 06/02/17 07:37 BP 85/62 06/02/17 07:37 Pulse Ox 91 06/02/17 07:37 Ventilator Settings Ventilator Settings: Ventilator Settings, Last 8 Hours Ventilator Mode A/C Ventilator Mode A/C Ventilator Mode A/C Ventilator Mode A/C Ventilator Mode A/C Ventilator Mode A/C Ventilator Mode A/C Ventilator Mode A/C Ventilator Mode A/C Ventilator Mode A/C Ventilator Mode A/C Ventilator Mode A/C Ventilator Tidal Volume 450 Setting Ventilator Tidal Volume 450 Setting Ventilator Tidal Volume 450 Setting Ventilator Tidal Volume 450 Setting Ventilator Tidal Volume 450 Setting Ventilator Tidal Volume 450 Setting Ventilator Tidal Volume 450 Setting Ventilator Tidal Volume 450 Setting Ventilator Tidal Volume 450 Setting Ventilator Tidal Volume 450 Setting Ventilator Tidal Volume 450 Setting Ventilator Tidal Volume 450 Setting Ventilator Respiratory Rate 16 Setting Ventilator Respiratory Rate 16 Setting Ventilator Respiratory Rate 16 Setting Ventilator Respiratory Rate 16 Setting Ventilator Respiratory Rate 16 Setting Ventilator Respiratory Rate 16 Setting Ventilator Respiratory Rate 16 Setting Ventilator Respiratory Rate 16 Setting Ventilator Respiratory Rate 16 Setting Ventilator Respiratory Rate 16 Setting Ventilator Respiratory Rate 16 Setting Ventilator Respiratory Rate 16 Setting Actual Respiratory Rate 16 Actual Respiratory Rate 16 Actual Respiratory Rate 16 Actual Respiratory Rate 16 Actual Respiratory Rate 16 Actual Respiratory Rate 16 Actual Respiratory Rate 16 Actual Respiratory Rate 16 Actual Respiratory Rate 16 Actual Respiratory Rate 16 Actual Respiratory Rate 16 Positive End Expiratory 8 Pressure Positive End Expiratory 8 Pressure Positive End Expiratory 8 Pressure Positive End Expiratory 8 Pressure Positive End Expiratory 8 Pressure Positive End Expiratory 8 Pressure Positive End Expiratory 8 Pressure Positive End Expiratory 8 Pressure Positive End Expiratory 8 Pressure Positive End Expiratory 8 Pressure Positive End Expiratory 8 Pressure Positive End Expiratory 8 Pressure Peak Inspiratory Airway 36 Pressure Peak Inspiratory Airway 33 Pressure Peak Inspiratory Airway 35 Pressure Peak Inspiratory Airway 35 Pressure Peak Inspiratory Airway 37 Pressure Peak Inspiratory Airway 35 Pressure Peak Inspiratory Airway 38 Pressure Peak Inspiratory Airway 37 Pressure Peak Inspiratory Airway 38 Pressure Peak Inspiratory Airway 38 Pressure Peak Inspiratory Airway 37 Pressure Results - Laboratory Findings CBC and BMP: 06/02/17 04:20 06/02/17 04:20 ABG ABG pH 7.39 pH Units (7.32-7.45) 06/02/17 04:00 ABG pCO2 71 mmHg (35-45) H* 06/02/17 04:00 ABG pO2 64 mmHg (85-104) L 06/02/17 04:00 ABG O2 Saturation 92 % (95-98) L 06/02/17 04:00 PT/INR, D-dimer PT 12.5 Seconds (9.4-12.1) H 05/31/17 15:15 Abnormal lab findings: Abnormal lab results RBC 3.27 M/mcL (3.82-4.97) L 06/02/17 04:20 Hgb 9.2 g/dL (11.5-15.4) L 06/02/17 04:20 Hct 31.6 % (35.3-44.9) L 06/02/17 04:20 MCHC 29.1 g/dL (31.6-35.5) L 06/02/17 04:20 RDW 20.3 % (11.5-14.5) H 06/02/17 04:20 MPV 13.0 fL (9.4-12.4) H 06/02/17 04:20 Nucleated RBCs/100 WBC 0.4 /100 WBC (0) H 06/02/17 04:20 Reactive Lymphocytes Present (Not Present) A 06/01/17 03:30 Large Platelets Present (Not Present) A 06/01/17 03:30 Immature Plt Fraction 15.0 % (1.1-6.1) H 06/01/17 03:30 Polychromasia 1+ (Not Present) A 06/01/17 03:30 Hypochromasia Present (Not Present) A 05/30/17 03:06 Basophilic Stippling 1+ (Not Present) A 06/01/17 03:30 Anisocytosis 2+ (Not Present) A 06/01/17 03:30 PT 12.5 Seconds (9.4-12.1) H 05/31/17 15:15 APTT 70.0 Seconds (26.0-36.0) H D 06/02/17 01:12 ABG pCO2 71 mmHg (35-45) H* 06/02/17 04:00 ABG pO2 64 mmHg (85-104) L 06/02/17 04:00 ABG HCO3 43.0 mEQ/L (21-27) H 06/02/17 04:00 ABG Total CO2 45.2 mEq/L (20-26) H 06/02/17 04:00 ABG O2 Saturation 92 % (95-98) L 06/02/17 04:00 ABG Base Excess 15.5 mEq/L (-2.0 to 3.0) H 06/02/17 04:00 VBG pH 7.50 pH Units (7.32-7.42) H 05/31/17 21:46 VBG pO2 202 mmHg (25-40) H 05/31/17 21:46 VBG HCO3 36.7 mEq/L (21-27) H 05/31/17 21:46 Mixed VBG pH 7.29 (7.34-7.36) L 05/31/17 21:46 Mixed VBG pCO2 89 mmHg (44-46) H 05/31/17 21:46 Mixed VBG pO2 73 mmHg (35-45) H 05/31/17 21:46 Mixed VBG Oxyhemoglobin 93.0 % (60-80) H 05/31/17 21:46 Potassium 4.7 mEq/L (3.5-4.5) H 06/02/17 04:20 Carbon Dioxide 34 mEq/L (19-29) H 06/02/17 04:20 BUN 46 mg/dL (7-20) H D 06/02/17 04:20 Creatinine 1.75 mg/dL (0.57-1.11) H 06/02/17 04:20 Est GFR ( Amer) 38 (> 60) L 06/02/17 04:20 Est GFR (Non-Af Amer) 32 (> 60) L 06/02/17 04:20 Glucose 141 mg/dL (70-99) H 06/02/17 04:20 POC Glucose 161 (58-89) H 06/02/17 07:39 ALT 115 Units/L (0-55) H 06/01/17 03:30 Creatine Kinase 200 Units/L (29-168) H 06/01/17 03:06 Troponin I 0.36 ng/mL (0-0.03) H* 05/29/17 15:53 Serum Total Protein 5.7 g/dL (6.0-8.3) L 06/01/17 03:30 Albumin 2.8 g/dL (3.5-5.0) L 06/01/17 03:30 Albumin/Globulin Ratio 1.0 (1.1-2.2) L 06/01/17 03:30 Urine Clarity Hazy (Clear) A 05/29/17 18:15 Ur Specific [place] 1.026 (1.010-1.025) H 05/29/17 18:15 Urine Protein 30 mg/dL (Neg-Trace) H 05/29/17 18:15 Urine Ketones Trace mg/dL (Negative) H 05/29/17 18:15 Urine Bilirubin Small (Negative) H 05/29/17 18:15 Urine Microscopic WBC 15-30 per hpf (0-3) H 05/29/17 18:15 Ur Squamous Epith Cells Many per lpf (None-Few) H 05/29/17 18:15 Amorphous Sediment Moderate (Few) H 05/29/17 18:15 Urine Bacteria Moderate per hpf (None-Few) H 05/29/17 18:15 Hyaline Casts Moderate per lpf (None-Few) H 05/29/17 18:15 Ur Culture Indicated? YES (NO) A 05/29/17 18:15 - Clinical Findings Intake & Output: Intake & Output 06/01/17 06/02/17 06/02/17 23:59 07:59 15:59 Intake Total 614 / 614 850 / 850 Output Total 340 / 340 250 / 250 400 / 400 Balance 274 / 274 600 / 600 -400 / -400 Weight 162.52 kg - Attending Attestation I examined this patient and my medical decision-making was reviewed with the [employer]/PA/Advanced Practice Nurse/Resident Physician. I agree with the documented findings, disposition and treatment plan as described except to the extent set forth below. I spent 35min of Critical Care time with this patient. It involved decision making of high complexity to assess, manipulate, and support vital organ system failure and/or to prevent further life threatening deterioration of the patient' s condition. The time involved in the performance of separately reportable procedures was not counted toward critical care time. Patient seen and examined at bedside Labs, radiology, chart personally reviewed. All lines examined without evidence of infection. Neuropsych: Sedated on vent continue daily sedation holiday as tolerated; Pulm: Acute on chronic hypoxic hypercarbic respiratory failure with severe pulmonary hypertension along with evidence of cor pulmonale now. Still using significant ventilatory support and including 80% FiO2 I switched her over to pressure control ventilation to try to recruit long increase PEEP as tolerated by right heart at this point no evidence of her spine hypertension. Diuresis for pulmonary edema may need referral for evaluation of pulmonary hypertension Cards: Cardiogenic shock secondary her heart failure on vasopressor and milrinone encouragingly she has had increased urine output we will continue to titrate down vasopressor for goal MAP 60; cardiology following FEN-GI: Nothing by mouth for now and likely start enteral nutrition for nutritional be consulted PPI prophylaxis given Renal: Acute on chronic kidney injury was oliguric now making excellent urine has responded favorably to diuresis goal -1-2 L as tolerated continued twice daily renal function panel and replace electrolytes per protocol ID: No evidence of acute infection we will continue to monitor Heme/Onc: concern for either acute or chronic pulmonary embolus empirically on heparin for this reason lurks really duplex although poor study did not show any DVT H&H has been stable as his platelets while on anticoagulation we will continue to follow this daily Endo: glucose monitored Integ/MSK: Skin care per routine ICU protocol CODE: full code patient's family was contacted yesterday and updated them that this is a very severe case and they agreed to come in for discussion
[2017-06-02] MEDS: Chlorhexidine Rinse 15 ML MOUTHWASH MM SCH ×2 (08:37→20:15)
[2017-06-02] MEDS: Gabapentin 100 MG CAPSULE PO SCH ×3 (08:38→20:13)
[2017-06-02] MEDS: Cholecalciferol (D-3) 1,000 UNIT TABLET PO SCH (08:38)
[2017-06-02] MEDS: Pantoprazole 40 MG VIAL IVP SCH (08:38)
[2017-06-02] MEDS: Aspirin 81 MG TAB.CHEW PO SCH (08:38)
[2017-06-02] MEDS: Nystatin OINT 15 GM TUBE TP SCH ×4 (08:39→20:17)
[2017-06-02] MEDS: Insulin LISPRO 300 UNITS/3 ML VIAL SQ SCH ×7 (08:39→20:15)
[2017-06-02] MEDS: Nystatin POWDER 30 GM BOTTLE TP SCH ×2 (08:39→20:16)
[2017-06-02] MEDS: Magnesium Sulfate 2 GM in D5% in Water 100 ML IVPB PRN ×2 (09:12→18:47)
--- NOTE | 2017-06-02 09:28 | Nephrology Progress Note ---
Date of Encounter: 06/02/17 Time of Encounter: 09:28 - Assessment and Plan (1) Acute on chronic renal failure Current Visit: Yes Status: Acute Kidney function continues to improve. Given 80 IV Lasix with subsequent 700 mL UOP Yoli on hold. Continues to be on norepinephrine and milrinone. Potassium 4.7 Plan: Hemodynamics are stable. Kidney function continues to improve. Patient has a good response to IV Lasix. Plan will be to hold Yoli, continue strict monitoring of fluid status and repeat serum creatinine in the afternoon to monitor progression of kidney function. Patient has 2+ pedal edema. Will be to balance net negative fluid balance versus sustaining stable to pressure. If kidney function and volume overload continues to improve Yoli will be discontinued tomorrow. Avoid nephrotoxic drugs: bacrtim, NSAID Qualifiers: Qualified Code(s): N17.9 - Acute kidney failure, unspecified; N18.3 - Chronic kidney disease, stage 3 (moderate) (2) Acute and chronic respiratory failure Current Visit: Yes Status: Acute On mechanical ventilation management as per pulm/critical care Qualifiers: Qualified Code(s): J96.21 - Acute and chronic respiratory failure with hypoxia; J96.22 - Acute and chronic respiratory failure with hypercapnia (3) Shock Current Visit: Yes Status: Acute Continues to require pressors. We will need to balance net negative fluid balance and maintian BP at the same time. Management as per primary. (4) Metabolic alkalosis with respiratory acidosis Current Visit: Yes Status: Acute 2nd to long standing hx of COPD and sleep apnea on mechanical ventilation. mangement as per primary (5) Cor pulmonale Current Visit: Yes Status: Acute Lower extremity venous Doppler shows bilateral superficial greater saphenous vein thrombosis. Patient was started on heparin possible type IV pulmonary hypertension. (6) Hyperkalemia Current Visit: Yes Status: Acute Continues to improve. We will continue to monitor. Subjective Principal diagnosis: Respiratory insufficiency Interval history: Continues to be on mechanical ventilation. No acute events overnight. Objective - Vital Signs Vital signs: Vital Signs Temp Pulse Resp BP Pulse Ox 06/02/17 09:00 105 16 109/59 92 06/02/17 08:10 99.7 F H 06/02/17 08:00 105 16 109/59 92 06/02/17 07:37 18 85/62 91 06/02/17 07:00 103 16 102/54 92 06/02/17 06:08 16 79/59 88 06/02/17 06:00 114 16 79/59 88 06/02/17 05:00 111 16 102/66 92 06/02/17 04:14 16 93/67 92 06/02/17 04:00 98.9 F 110 16 93/67 92 06/02/17 03:00 107 16 91/51 92 06/02/17 02:20 16 92/64 91 06/02/17 02:00 115 16 92/64 91 06/02/17 01:00 106 16 115/50 94 06/02/17 00:12 16 126/56 94 06/02/17 00:00 99.9 F H 114 16 126/56 94 06/01/17 23:15 99.9 F H 06/01/17 23:00 114 16 94/50 94 06/01/17 22:16 16 92/54 93 06/01/17 22:00 113 16 92/54 93 06/01/17 21:01 16 90/64 92 06/01/17 21:00 98.4 F 114 16 92/54 94 06/01/17 20:00 113 16 92/54 93 06/01/17 19:30 98.4 F 06/01/17 19:00 107 16 91/52 93 06/01/17 18:17 111 16 93/47 93 06/01/17 17:24 111 16 91/56 93 06/01/17 17:14 16 91/56 92 06/01/17 16:00 98.6 F 106 16 101/55 91 06/01/17 15:14 16 106/54 94 06/01/17 15:00 115 16 106/54 94 06/01/17 14:00 106 16 120/60 93 06/01/17 13:40 16 111/62 100 06/01/17 13:00 97.8 F 91 16 111/62 100 06/01/17 12:00 96 16 95/54 100 06/01/17 11:40 16 91/50 100 06/01/17 11:00 94 16 91/50 100 06/01/17 10:00 105 16 111/58 95 Intake and Output 06/01/17 06/02/17 06/02/17 23:59 07:59 15:59 Intake Total 614 / 614 850 / 850 20 / 20 Output Total 340 / 340 250 / 250 400 / 400 Balance 274 / 274 600 / 600 -380 / -380 Intake: IV Fluids 554 / 554 850 / 850 FentaNYL (PF) 1,000 MCG 100 / 100 In 0.9 % Sodium Chloride 80 ML @ 50 MCG/HR 5 mls/ hr IVC CONT [facility] Rx#: [id number] Heparin 25,000 UNIT/500 500 / 500 ML D5W 25,000 unit In 500 ml @ 14 UNIT/KG/HR 44. 408 mls/hr IVC .[id number] [place] Rx#:[id number] Primacor Premix 20 MG/100 200 / 200 ML 20 mg In 100 ml @ 0. 25 MCG/KG/MIN 11.91 mls/ hr IVC .[id number] [facility] Rx#: [id number] Levophed 4 MG In Dextrose 250 / 250 250 / 250 5% 250 ML @ 2 MCG/MIN 7. 5 mls/hr IVC CONT [facility] Rx# :[id number] Magnesium Sulfate 2 GM In 104 / 104 Dextrose 5% 100 ML @ 50 mls/hr IVPB Q6H PRN Rx#: [id number] Free Water 60 / 60 Free Water Intake Amount 20 / 20 Output: Catheter 340 / 340 250 / 250 400 / 400 Other: Weight 162.52 kg Blood Glucose* 124 161 Patient Weight 06/02/17 23:59 Weight 162.52 kg - General Appearance General appearance: Present: obese, sedated on ventilator Additional Comments: JVD difficult to identify due to large neck. Respiratory: Present: clear Cardiology: Present: normal S1, normal S2 Additional Comments: Bowel sounds difficult to identify due to large body habitus. Additional Comments: Sedated - Lab 06/02/17 04:20 06/02/17 04:20 Most recent lab results ABG pH 7.39 pH Units (7.32-7.45) 06/02/17 04:00 ABG pCO2 71 mmHg (35-45) H* 06/02/17 04:00 ABG pO2 64 mmHg (85-104) L 06/02/17 04:00 ABG HCO3 43.0 mEQ/L (21-27) H 06/02/17 04:00 ABG O2 Saturation 92 % (95-98) L 06/02/17 04:00 Calcium 8.7 mg/dL (8.6-10.8) 06/02/17 04:20 Phosphorus 3.3 mg/dL (2.3-4.7) 06/02/17 04:20 Magnesium 1.9 mg/dL (1.6-2.6) 06/02/17 04:20 - VTE Documentation of Mechanical Device: Intermittent pneumatic compression device Consult Discharge Plan - Plan Referrals: Sunny Stanley MD [Primary Care Provider] -
--- NOTE | 2017-06-02 10:53 | Cardiology Progress Note ---
Date of Encounter: 06/02/17 Time of Encounter: 09:30 Assessment and Plan (1) Cor pulmonale Current Visit: Yes Status: Acute Patient presented 05/29/2017 after a fall and secondary to acute on chronic respiratory failure was intubated during her course of stay. I reviewed the medical records of her hospital course. Acute respiratory distress thought in part secondary to severe pulmonary hypertension and right sided heart failure. She is requiring pressor agents and milrinone. Her urine output is better, having produced about a liter overnight and is no longer on [place]. Renal function has improved. Overall, her hemodynamics have improved since yesterday. Spoke with ICU Attending, Dr. Stevens about her case. Recommend consideration of transfer to a tertiary care center if her clinical status does not continue to improve. Discussion w patient/family: Patient family not at bedside. Spoke with Critical Care Attending about her case. Subjective Principal diagnosis: Respiratory insufficiency Interval history: No acute overnight events. Patient producing urine - about 1L overnight. Remains intubated and sedated. Pressors being weaned. Objective Vital Signs, Last 4 Hours Temp Pulse Resp BP Pulse Ox 06/02/17 10:00 106 16 106/62 90 06/02/17 09:26 16 103/55 92 06/02/17 09:00 105 16 109/59 92 06/02/17 08:10 99.7 F H 06/02/17 08:00 109 16 109/59 92 06/02/17 07:37 18 85/62 91 06/02/17 07:00 103 16 102/54 92 General: Other (Intubated, sedated) HEENT: Atraumatic, Normocephaly, Other (ETT in place) Neck: Other (difficult to appreciate JVP due to large neck) Cardiac: Reg Rate and Rhythm, Other (distant heart sounds, no apparent murmur) Lungs: No Wheeze, Rales, Rhonchi, Other (shallow breath sounds) Neuro: Other Abdomen: Soft, Non-Tender, Other (soft bowel sounds present) Extremities: Other (significant bilateral LE pitting edema) Results 06/02/17 04:20 06/02/17 04:20 Lab Results 06/01/17 06/02/17 06/02/17 13:58 01:12 04:20 WBC 7.6 Hgb 9.2 L Hct 31.6 L Plt Count 148 APTT 27.9 70.0 H D Sodium Potassium Chloride Carbon Dioxide BUN Creatinine Glucose Calcium Magnesium 06/02/17 06/02/17 04:20 09:00 WBC Hgb Hct Plt Count APTT 61.0 H Sodium 138 Potassium 4.7 H Chloride 98 Carbon Dioxide 34 H BUN 46 H D Creatinine 1.75 H Glucose 141 H Calcium 8.7 Magnesium 1.9 - Imaging and Cardiology Chest Xray: report reviewed Echo: report reviewed, image reviewed - EKG Interpretation EKG results cardiology: other (24h telemetry demonstrates sinus tachycardia average HR 108 bpm, PACs and one episode of 25 beats of SVT) - VTE Documentation of Mechanical Device: Intermittent pneumatic compression device Consult Discharge Plan - Plan Referrals: Sunny Stanley MD [Primary Care Provider] -
[2017-06-02 13:04] LABS: ABG Base Excess 14.4 mEq/L (-2.0 to 3.0); ABG HCO3 41.5 mEQ/L (21-27); ABG Oxygen Saturation 94 % (95-98); ABG PCO2 67 mmHg (35-45); ABG PO2 72 mmHg (85-104); ABG TCO2 43.6 mEq/L (20-26)
[2017-06-02 13:11] LABS: Blood Gas FiO2 80 %
[2017-06-02 15:07] LABS: Magnesium 1.8 mg/dL (1.6-2.6)
[2017-06-02 15:15] LABS: Ionized Calcium 1.02 mmol/L (1.15-1.35)
[2017-06-02 16:05] LABS: Magnesium 1.8 mg/dL (1.6-2.6)
[2017-06-02 16:19] LABS: Albumin 2.3 g/dL (3.5-5.0); Calcium 8.9 mg/dL (8.6-10.8); Phosphorous 3.4 mg/dL (2.3-4.7); Potassium 4.2 mEq/L (3.5-4.5)
[2017-06-02] MEDS ORDERED: Calcium Gluconate 2,000 MG in D5% in Water 100 ML IVPB ONE (17:34)
[2017-06-02 18:47] LABS: ABG Base Excess 16.2 mEq/L (-2.0 to 3.0); ABG HCO3 43.5 mEQ/L (21-27); ABG Oxygen Saturation 98 % (95-98); ABG PCO2 67 mmHg (35-45); ABG PH 7.42 pH Units (7.32-7.45); ABG PO2 110 mmHg (85-104); ABG TCO2 45.6 mEq/L (20-26)
[2017-06-02 18:48] LABS: Blood Gas FiO2 80 %
[2017-06-02] MEDS: Insulin DETEMIR 100 UNIT/ML X5UNITS SQ SCH (20:13)
[2017-06-02] MEDS: PrismaSATE BGK 4/2.5 5,000 ML CRRT SCH ×2 (20:15)
[2017-06-03] MEDS: MILRINONE IVPB SCH ×6 (00:13→19:27)
[2017-06-03] MEDS: SODIUM CHLORIDE 0.9% IVPB SCH ×6 (00:13→19:27)
[2017-06-03] MEDS: Heparin 25,000 UNIT/500 ML D5W 25,000 UNIT/500 ML MLS IVC SCH ×2 (02:37→15:12)
[2017-06-03] MEDS ORDERED: Furosemide 40 MG/4 ML VIAL IVP ONE ×2 (04:00→16:00)
[2017-06-03 04:15] LABS: Basophils % 0.2 %; Eosinophils # 0.1 K/mcL (0.0-0.6); Eosinophils % 1.8 %; Hematocrit 31.7 % (35.3-44.9); Hemoglobin 9.5 g/dL (11.5-15.4); Immature Granulocytes % 0.3 % (0-4); Mean Corpuscular Hemoglobin 28.9 pg (28.0-33.3); Mean Corpuscular Volume 96.4 fL (83.0-100.0); Mean Platelet Volume 12.6 fL (9.4-12.4); Monocytes # 0.4 K/mcL (0.0-1.3); Monocytes % 6.8 %; Neutrophils # 4.5 K/mcL (1.6-8.9); Nucleated Red Blood Cells 0.3 /100 WBC (0); Platelet Count 135 K/mcL (140-400); Red Blood Count 3.29 M/mcL (3.82-4.97); Red Cell Distribution Width 20.4 % (11.5-14.5); Segmented Neutrophils % 74.9 %
[2017-06-03] MEDS: Lacri-Lube 3.5 GM TUBE BOTH EYES SCH ×6 (04:16→23:12)
[2017-06-03 04:26] LABS: Magnesium 1.7 mg/dL (1.6-2.6)
[2017-06-03 04:28] LABS: Calcium 9.2 mg/dL (8.6-10.8); Phosphorous 3.7 mg/dL (2.3-4.7); Potassium 3.9 mEq/L (3.5-4.5)
[2017-06-03 04:40] LABS: ABG Base Excess 21.3 mEq/L (-2.0 to 3.0); ABG HCO3 48.4 mEQ/L (21-27); ABG Oxygen Saturation 98 % (95-98); ABG PCO2 68 mmHg (35-45); ABG PH 7.46 pH Units (7.32-7.45); ABG PO2 108 mmHg (85-104); ABG TCO2 50.5 mEq/L (20-26); Blood Gas FiO2 80 %
[2017-06-03] MEDS: Magnesium Sulfate 2 GM in D5% in Water 100 ML IVPB PRN ×3 (06:12→23:40)
--- NOTE | 2017-06-03 07:31 | Pulmonology Progress Note ---
<Nell Lagunas - Last Filed: 06/03/17 11:30> Date of Encounter: 06/03/17 Time of Encounter: 07:29 Assessment and Plan (1) Acute and chronic respiratory failure Current Visit: Yes Status: Acute Patient initially presented to the hospital status post fall. She subsequently was found to have an increased troponin and to be in rhabdomyolysis. She began having respiratory distress. She was placed on BiPAP. She was emergently intubated for acute on chronic respiratory failure. She does have a history of coronary hypertension as well as decompensated right heart failure. She is currently intubated on a ventilator. She is being sedated with Versed as well as fentanyl. She is on milrinone. His back on Levophed. She is diuresing well with lasix. We will continue to have her on the ventilator. She is requiring 100% FIo2 at this time. Movements seem to cause Pt to desat. Plan: Increase Milrinone Continue to monitor urine output. Heparin subcutaneous for DVT prophylaxis. Lasix twice a day Protonix for GI prophylaxis Qualifiers: Respiratory failure complication: hypoxia and hypercapnia Qualified Code(s) : J96.21 - Acute and chronic respiratory failure with hypoxia; J96.22 - Acute and chronic respiratory failure with hypercapnia (2) Acute on chronic renal failure Current Visit: Yes Status: Acute Plan: Monitoring electrolytes. Lasix IV as needed to augment diuresis Qualifiers: Acute renal failure type: unspecified Chronic kidney disease stage: stage 3 (moderate) Qualified Code(s): N17.9 - Acute kidney failure, unspecified; N18.3 - Chronic kidney disease, stage 3 (moderate) (3) Chronic systolic (congestive) heart failure Current Visit: Yes Status: Acute Plan as above (4) Cor pulmonale Current Visit: Yes Status: Acute Plan as above (5) Moderate to severe pulmonary hypertension Current Visit: Yes Status: Chronic Plan as above (6) Morbid obesity with BMI of 50.0-59.9, adult Current Visit: Yes Status: Chronic Plan as above (7) SMITA treated with BiPAP Current Visit: Yes Status: Chronic Plan as above (8) Candidal intertrigo Current Visit: No Status: Acute Plan as above Subjective Principal diagnosis: Respiratory insufficiency Interval history: Patient stable overnight. She has had several episodes of the satting however. It appears that every time she moves her oxygen saturation decreases. However her blood gases have been stable. Patient is on milrinone and we will begin to increase this today. She was off levo fed for short period time however is requiring it again. She has been diuresing well with Lasix. Objective PUL Vital signs: Last Vital Signs Temp 98.3 F 06/03/17 04:00 Pulse 99 06/03/17 05:58 Resp 16 06/03/17 05:58 BP 111/74 06/03/17 05:58 Pulse Ox 94 06/03/17 05:58 General appearance: other (Intubated and sedated) Eyes: nonicteric ENT: oropharynx moist Neck: supple Effort: normal Auscultation: bilateral: rales (Lower lobes) Cardiovascular: regular rate and rhythm Gastrointestinal: normoactive bowel sounds, soft, non-distended Integumentary: normal Extremities: no cyanosis, edema (Patient has pitting edema to approximately 2 inches above her knees.) Musculoskeletal: no deformities Ventilator Settings Ventilator Settings: Ventilator Settings, Last 8 Hours Ventilator Mode PC Ventilator Mode PC Ventilator Mode PC Ventilator Mode PC Ventilator Mode PC Ventilator Mode PC Ventilator Mode PC Ventilator Mode PC Ventilator Mode PC Ventilator Mode PC Ventilator Mode PC Ventilator Tidal Volume 30 Setting Ventilator Tidal Volume 30 Setting Ventilator Tidal Volume 30 Setting Ventilator Tidal Volume 30 Setting Ventilator Tidal Volume 30 Setting Ventilator Tidal Volume 30 Setting Ventilator Tidal Volume 30 Setting Ventilator Tidal Volume 30 Setting Ventilator Tidal Volume 30 Setting Ventilator Tidal Volume 30 Setting Ventilator Tidal Volume 30 Setting Ventilator Respiratory Rate 16 Setting Ventilator Respiratory Rate 16 Setting Ventilator Respiratory Rate 16 Setting Ventilator Respiratory Rate 16 Setting Ventilator Respiratory Rate 16 Setting Ventilator Respiratory Rate 16 Setting Ventilator Respiratory Rate 16 Setting Ventilator Respiratory Rate 16 Setting Ventilator Respiratory Rate 16 Setting Ventilator Respiratory Rate 16 Setting Ventilator Respiratory Rate 16 Setting Actual Respiratory Rate 16 Actual Respiratory Rate 16 Actual Respiratory Rate 16 Actual Respiratory Rate 16 Actual Respiratory Rate 16 Actual Respiratory Rate 16 Actual Respiratory Rate 16 Actual Respiratory Rate 16 Actual Respiratory Rate 16 Actual Respiratory Rate 16 Positive End Expiratory 8 Pressure Positive End Expiratory 8 Pressure Positive End Expiratory 8 Pressure Positive End Expiratory 8 Pressure Positive End Expiratory 8 Pressure Positive End Expiratory 8 Pressure Positive End Expiratory 8 Pressure Positive End Expiratory 8 Pressure Positive End Expiratory 8 Pressure Positive End Expiratory 8 Pressure Positive End Expiratory 8 Pressure Peak Inspiratory Airway 38 Pressure Peak Inspiratory Airway 38 Pressure Peak Inspiratory Airway 38 Pressure Peak Inspiratory Airway 38 Pressure Peak Inspiratory Airway 38 Pressure Peak Inspiratory Airway 38 Pressure Peak Inspiratory Airway 38 Pressure Peak Inspiratory Airway 38 Pressure Peak Inspiratory Airway 38 Pressure Peak Inspiratory Airway 38 Pressure Results - Laboratory Findings CBC and BMP: 06/03/17 04:00 06/03/17 04:00 ABG ABG pH 7.46 pH Units (7.32-7.45) H 06/03/17 04:30 ABG pCO2 68 mmHg (35-45) H 06/03/17 04:30 ABG pO2 108 mmHg (85-104) H 06/03/17 04:30 ABG O2 Saturation 98 % (95-98) 06/03/17 04:30 PT/INR, D-dimer PT 12.5 Seconds (9.4-12.1) H 05/31/17 15:15 Abnormal lab findings: Abnormal lab results RBC 3.29 M/mcL (3.82-4.97) L 06/03/17 04:00 Hgb 9.5 g/dL (11.5-15.4) L 06/03/17 04:00 Hct 31.7 % (35.3-44.9) L 06/03/17 04:00 MCHC 30.0 g/dL (31.6-35.5) L 06/03/17 04:00 RDW 20.4 % (11.5-14.5) H 06/03/17 04:00 Plt Count 135 K/mcL (140-400) L 06/03/17 04:00 MPV 12.6 fL (9.4-12.4) H 06/03/17 04:00 Nucleated RBCs/100 WBC 0.3 /100 WBC (0) H 06/03/17 04:00 Reactive Lymphocytes Present (Not Present) A 06/01/17 03:30 Large Platelets Present (Not Present) A 06/01/17 03:30 Immature Plt Fraction 15.0 % (1.1-6.1) H 06/01/17 03:30 Polychromasia 1+ (Not Present) A 06/01/17 03:30 Hypochromasia Present (Not Present) A 05/30/17 03:06 Basophilic Stippling 1+ (Not Present) A 06/01/17 03:30 Anisocytosis 2+ (Not Present) A 06/01/17 03:30 PT 12.5 Seconds (9.4-12.1) H 05/31/17 15:15 APTT 73.9 Seconds (26.0-36.0) H 06/02/17 14:50 ABG pH 7.46 pH Units (7.32-7.45) H 06/03/17 04:30 ABG pCO2 68 mmHg (35-45) H 06/03/17 04:30 ABG pO2 108 mmHg (85-104) H 06/03/17 04:30 ABG HCO3 48.4 mEQ/L (21-27) H 06/03/17 04:30 ABG Total CO2 50.5 mEq/L (20-26) H 06/03/17 04:30 ABG Base Excess 21.3 mEq/L (-2.0 to 3.0) H 06/03/17 04:30 VBG pH 7.50 pH Units (7.32-7.42) H 05/31/17 21:46 VBG pO2 202 mmHg (25-40) H 05/31/17 21:46 VBG HCO3 36.7 mEq/L (21-27) H 05/31/17 21:46 Mixed VBG pH 7.29 (7.34-7.36) L 05/31/17 21:46 Mixed VBG pCO2 89 mmHg (44-46) H 05/31/17 21:46 Mixed VBG pO2 73 mmHg (35-45) H 05/31/17 21:46 Mixed VBG Oxyhemoglobin 93.0 % (60-80) H 05/31/17 21:46 Chloride 95 mEq/L (98-109) L 06/03/17 04:00 Carbon Dioxide 37 mEq/L (19-29) H 06/03/17 04:00 BUN 39 mg/dL (7-20) H 06/03/17 04:00 Creatinine 1.19 mg/dL (0.57-1.11) H 06/03/17 04:00 Est GFR (Non-Af Amer) 49 (> 60) L 06/03/17 04:00 BUN/Creatinine Ratio 33 (6-26) H 06/03/17 04:00 POC Glucose 118 (58-89) H 06/02/17 23:14 Calculated Osmolality 301 (280-300) H 06/03/17 04:00 ALT 115 Units/L (0-55) H 06/01/17 03:30 Creatine Kinase 200 Units/L (29-168) H 06/01/17 03:06 Troponin I 0.36 ng/mL (0-0.03) H* 05/29/17 15:53 Serum Total Protein 5.7 g/dL (6.0-8.3) L 06/01/17 03:30 Albumin 2.3 g/dL (3.5-5.0) L 06/02/17 15:49 Albumin/Globulin Ratio 1.0 (1.1-2.2) L 06/01/17 03:30 Urine Clarity Hazy (Clear) A 05/29/17 18:15 Ur Specific [place] 1.026 (1.010-1.025) H 05/29/17 18:15 Urine Protein 30 mg/dL (Neg-Trace) H 05/29/17 18:15 Urine Ketones Trace mg/dL (Negative) H 05/29/17 18:15 Urine Bilirubin Small (Negative) H 05/29/17 18:15 Urine Microscopic WBC 15-30 per hpf (0-3) H 05/29/17 18:15 Ur Squamous Epith Cells Many per lpf (None-Few) H 05/29/17 18:15 Amorphous Sediment Moderate (Few) H 05/29/17 18:15 Urine Bacteria Moderate per hpf (None-Few) H 05/29/17 18:15 Hyaline Casts Moderate per lpf (None-Few) H 05/29/17 18:15 Ur Culture Indicated? YES (NO) A 05/29/17 18:15 - Clinical Findings Intake & Output: Intake & Output 06/02/17 06/02/17 06/03/17 15:59 23:59 07:59 Intake Total 1279 / 1279 377 / 377 640 / 640 Output Total 2800 / 2800 3200 / 3200 1900 / 1900 Balance -1521 / -1521 -2823 / -2823 -1260 / -1260 - VTE Documentation of Mechanical Device: Intermittent pneumatic compression device Consult Discharge Plan - Plan Referrals: Sunny Stanley MD [Primary Care Provider] - <Ronald Stevens - Last Filed: 06/03/17 12:08> Date of Encounter: 06/03/17 Assessment and Plan (1) Acute and chronic respiratory failure Current Visit: Yes Status: Acute Qualifiers: Respiratory failure complication: hypoxia and hypercapnia Qualified Code(s) : J96.21 - Acute and chronic respiratory failure with hypoxia; J96.22 - Acute and chronic respiratory failure with hypercapnia (2) Acute on chronic renal failure Current Visit: Yes Status: Acute Qualifiers: Acute renal failure type: unspecified Chronic kidney disease stage: stage 3 (moderate) Qualified Code(s): N17.9 - Acute kidney failure, unspecified; N18.3 - Chronic kidney disease, stage 3 (moderate) (3) Moderate to severe pulmonary hypertension Current Visit: Yes Status: Chronic (4) Morbid obesity with BMI of 50.0-59.9, adult Current Visit: Yes Status: Chronic (5) Candidal intertrigo Current Visit: No Status: Acute (6) SMITA treated with BiPAP Current Visit: Yes Status: Chronic (7) Cor pulmonale Current Visit: Yes Status: Acute (8) Chronic systolic (congestive) heart failure Current Visit: Yes Status: Acute Objective PUL Vital signs: Last Vital Signs Temp 97.2 F L 06/03/17 11:00 Pulse 96 06/03/17 11:11 Resp 14 06/03/17 11:19 BP 102/66 06/03/17 11:19 Pulse Ox 88 06/03/17 11:19 Ventilator Settings Ventilator Settings: Ventilator Settings, Last 8 Hours Ventilator Mode PC Ventilator Mode PC Ventilator Mode PC Ventilator Mode PC Ventilator Mode PC Ventilator Mode PC Ventilator Mode PC Ventilator Mode PC Ventilator Mode PC Ventilator Mode PC Ventilator Mode PC Ventilator Mode PC Ventilator Tidal Volume 28 Setting Ventilator Tidal Volume 28 Setting Ventilator Tidal Volume 28 Setting Ventilator Tidal Volume 28 Setting Ventilator Tidal Volume 28 Setting Ventilator Tidal Volume 30 Setting Ventilator Tidal Volume 30 Setting Ventilator Tidal Volume 30 Setting Ventilator Tidal Volume 30 Setting Ventilator Tidal Volume 30 Setting Ventilator Tidal Volume 30 Setting Ventilator Tidal Volume 30 Setting Ventilator Respiratory Rate 14 Setting Ventilator Respiratory Rate 14 Setting Ventilator Respiratory Rate 16 Setting Ventilator Respiratory Rate 16 Setting Ventilator Respiratory Rate 16 Setting Ventilator Respiratory Rate 16 Setting Ventilator Respiratory Rate 16 Setting Ventilator Respiratory Rate 16 Setting Ventilator Respiratory Rate 16 Setting Ventilator Respiratory Rate 16 Setting Ventilator Respiratory Rate 16 Setting Ventilator Respiratory Rate 16 Setting Actual Respiratory Rate 14 Actual Respiratory Rate 14 Actual Respiratory Rate 16 Actual Respiratory Rate 16 Actual Respiratory Rate 16 Actual Respiratory Rate 16 Actual Respiratory Rate 16 Actual Respiratory Rate 16 Actual Respiratory Rate 16 Actual Respiratory Rate 16 Actual Respiratory Rate 16 Positive End Expiratory 8 Pressure Positive End Expiratory 8 Pressure Positive End Expiratory 8 Pressure Positive End Expiratory 8 Pressure Positive End Expiratory 8 Pressure Positive End Expiratory 8 Pressure Positive End Expiratory 8 Pressure Positive End Expiratory 8 Pressure Positive End Expiratory 8 Pressure Positive End Expiratory 8 Pressure Positive End Expiratory 8 Pressure Positive End Expiratory 8 Pressure Peak Inspiratory Airway 36 Pressure Peak Inspiratory Airway 36 Pressure Peak Inspiratory Airway 36 Pressure Peak Inspiratory Airway 36 Pressure Peak Inspiratory Airway 36 Pressure Peak Inspiratory Airway 38 Pressure Peak Inspiratory Airway 38 Pressure Peak Inspiratory Airway 37 Pressure Peak Inspiratory Airway 38 Pressure Peak Inspiratory Airway 38 Pressure Peak Inspiratory Airway 38 Pressure Results - Laboratory Findings CBC and BMP: 06/03/17 04:00 06/03/17 04:00 ABG ABG pH 7.48 pH Units (7.32-7.45) H 06/03/17 10:42 ABG pCO2 64 mmHg (35-45) H 06/03/17 10:42 ABG pO2 94 mmHg (85-104) 06/03/17 10:42 ABG O2 Saturation 98 % (95-98) 06/03/17 10:42 PT/INR, D-dimer PT 12.5 Seconds (9.4-12.1) H 05/31/17 15:15 Abnormal lab findings: Abnormal lab results RBC 3.29 M/mcL (3.82-4.97) L 06/03/17 04:00 Hgb 9.5 g/dL (11.5-15.4) L 06/03/17 04:00 Hct 31.7 % (35.3-44.9) L 06/03/17 04:00 MCHC 30.0 g/dL (31.6-35.5) L 06/03/17 04:00 RDW 20.4 % (11.5-14.5) H 06/03/17 04:00 Plt Count 135 K/mcL (140-400) L 06/03/17 04:00 MPV 12.6 fL (9.4-12.4) H 06/03/17 04:00 Nucleated RBCs/100 WBC 0.3 /100 WBC (0) H 06/03/17 04:00 Reactive Lymphocytes Present (Not Present) A 06/01/17 03:30 Large Platelets Present (Not Present) A 06/01/17 03:30 Immature Plt Fraction 15.0 % (1.1-6.1) H 06/01/17 03:30 Polychromasia 1+ (Not Present) A 06/01/17 03:30 Hypochromasia Present (Not Present) A 05/30/17 03:06 Basophilic Stippling 1+ (Not Present) A 06/01/17 03:30 Anisocytosis 2+ (Not Present) A 06/01/17 03:30 PT 12.5 Seconds (9.4-12.1) H 05/31/17 15:15 APTT 73.9 Seconds (26.0-36.0) H 06/02/17 14:50 ABG pH 7.48 pH Units (7.32-7.45) H 06/03/17 10:42 ABG pCO2 64 mmHg (35-45) H 06/03/17 10:42 ABG HCO3 47.7 mEQ/L (21-27) H 06/03/17 10:42 ABG Total CO2 49.7 mEq/L (20-26) H 06/03/17 10:42 ABG Base Excess 21.0 mEq/L (-2.0 to 3.0) H 06/03/17 10:42 VBG pH 7.50 pH Units (7.32-7.42) H 05/31/17 21:46 VBG pO2 202 mmHg (25-40) H 05/31/17 21:46 VBG HCO3 36.7 mEq/L (21-27) H 05/31/17 21:46 Mixed VBG pH 7.29 (7.34-7.36) L 05/31/17 21:46 Mixed VBG pCO2 89 mmHg (44-46) H 05/31/17 21:46 Mixed VBG pO2 73 mmHg (35-45) H 05/31/17 21:46 Mixed VBG Oxyhemoglobin 93.0 % (60-80) H 05/31/17 21:46 Chloride 95 mEq/L (98-109) L 06/03/17 04:00 Carbon Dioxide 37 mEq/L (19-29) H 06/03/17 04:00 BUN 39 mg/dL (7-20) H 06/03/17 04:00 Creatinine 1.19 mg/dL (0.57-1.11) H 06/03/17 04:00 Est GFR (Non-Af Amer) 49 (> 60) L 06/03/17 04:00 BUN/Creatinine Ratio 33 (6-26) H 06/03/17 04:00 POC Glucose 96 (58-89) H 06/03/17 10:51 Calculated Osmolality 301 (280-300) H 06/03/17 04:00 ALT 115 Units/L (0-55) H 06/01/17 03:30 Creatine Kinase 200 Units/L (29-168) H 06/01/17 03:06 Troponin I 0.36 ng/mL (0-0.03) H* 05/29/17 15:53 Serum Total Protein 5.7 g/dL (6.0-8.3) L 06/01/17 03:30 Albumin 2.3 g/dL (3.5-5.0) L 06/02/17 15:49 Albumin/Globulin Ratio 1.0 (1.1-2.2) L 06/01/17 03:30 Urine Clarity Hazy (Clear) A 05/29/17 18:15 Ur Specific [place] 1.026 (1.010-1.025) H 05/29/17 18:15 Urine Protein 30 mg/dL (Neg-Trace) H 05/29/17 18:15 Urine Ketones Trace mg/dL (Negative) H 05/29/17 18:15 Urine Bilirubin Small (Negative) H 05/29/17 18:15 Urine Microscopic WBC 15-30 per hpf (0-3) H 05/29/17 18:15 Ur Squamous Epith Cells Many per lpf (None-Few) H 05/29/17 18:15 Amorphous Sediment Moderate (Few) H 05/29/17 18:15 Urine Bacteria Moderate per hpf (None-Few) H 05/29/17 18:15 Hyaline Casts Moderate per lpf (None-Few) H 05/29/17 18:15 Ur Culture Indicated? YES (NO) A 05/29/17 18:15 - Clinical Findings Intake & Output: Intake & Output 06/02/17 06/03/17 06/03/17 23:59 07:59 15:59 Intake Total 377 / 377 640 / 640 604 / 604 Output Total 3200 / 3200 3900 / 3900 1700 / 1700 Balance -2823 / -2823 -3260 / -3260 -1096 / -1096 - Attending Attestation I examined this patient and my medical decision-making was reviewed with the PEDIATRIC INTENSIVE PHYSICIAN/PA/Advanced Practice Nurse/Resident Physician. I agree with the documented findings, disposition and treatment plan as described except to the extent set forth below. Patient seen and examined at bedside Labs, radiology, chart personally reviewed. All lines examined without evidence of infection. Neuropsych: Sedated on vent response to voice and moves all extremities continue goal [place] scale 3 Pulm: Acute on chronic hypoxic hypercarbic respiratory failure that her oxygenation today ventilation is appropriate decreasing FiO2 continue diuresis for pulmonary edema Cards: Cardiogenic shock with cor pulmonale improving vasopressor requirements are very minimal she remains on inotropic support much better cardio renal perfusion we will continue to de-escalate this therapy FEN-GI: Start enteral nutrition; PPI prophylaxis given Renal: Renal function has markedly improved she has had significant urine output with diuretic we will continue to use twice a day dosing of diuretic, coal urine output 2- 4 L daily as tolerated, she will need twice daily electrolyte panel with replacement per protocol ID: No evidence of acute infection Heme/Onc: Heparin GTT for empiric coverage out of concerns of venous thromboembolism (PE) H&H stable platelets stable Endo: Glucose monitored Integ/MSK: Skin care per routine ICU protocol CODE: Full code I did have a long conversation with the family yesterday at bedside updating them on overall critical illness and generally poor prognosis
[2017-06-03] MEDS: Insulin LISPRO 300 UNITS/3 ML VIAL SQ SCH ×7 (07:45→19:27)
[2017-06-03] MEDS ORDERED: Potassium Chloride Elixir 20 MEQ/15 ML UDC PO PRN (08:10)
[2017-06-03] MEDS: Pantoprazole 40 MG VIAL IVP SCH (08:17)
[2017-06-03] MEDS: Chlorhexidine Rinse 15 ML MOUTHWASH MM SCH ×2 (08:17→19:26)
[2017-06-03] MEDS: Gabapentin 100 MG CAPSULE PO SCH ×3 (08:17→19:27)
[2017-06-03] MEDS: Aspirin 81 MG TAB.CHEW PO SCH (08:17)
[2017-06-03] MEDS: FentaNYL (PF) 1,000 MCG in 0.9 % Sodium Chloride 80 ML IVC SCH ×2 (08:18→19:25)
[2017-06-03] MEDS: Cholecalciferol (D-3) 1,000 UNIT TABLET PO SCH (08:18)
[2017-06-03] MEDS: Nystatin POWDER 30 GM BOTTLE TP SCH ×2 (08:19→19:27)
[2017-06-03] MEDS: Nystatin OINT 15 GM TUBE TP SCH ×4 (08:19→19:27)
[2017-06-03] MEDS: Norepinephrine 4 MG in D5% in Water 250 ML IVC SCH (09:15)
--- NOTE | 2017-06-03 09:25 | Nephrology Progress Note ---
Date of Encounter: 06/03/17 Time of Encounter: 08:30 - Assessment and Plan (1) BLANCA (acute kidney injury) Current Visit: Yes Status: Acute Nonoliguric BLANCA is resolving. Continue diuretics: UOP is excellent and the SCr is quickly correcting Will sign-off. Please feel free to reconsult as needed. Okay to remove the RIJ temporary HD catheter as discussed with the CHILD CARE SITTER. Thank you. (2) Acute and chronic respiratory failure Current Visit: Yes Status: Acute Qualifiers: Respiratory failure complication: hypoxia and hypercapnia Qualified Code(s) : J96.21 - Acute and chronic respiratory failure with hypoxia; J96.22 - Acute and chronic respiratory failure with hypercapnia (3) Cor pulmonale Current Visit: Yes Status: Acute Subjective Principal diagnosis: Respiratory insufficiency Interval history: Pt was seen/examined while in the ICU. She remained intubated on high FiO2. UOP has improved as per CHILD CARE SITTER. Objective - Vital Signs Vital signs: Vital Signs Temp Pulse Resp BP Pulse Ox 06/03/17 09:15 16 84/58 97 06/03/17 09:00 95 16 82/58 96 06/03/17 08:00 98.7 F 89 16 100/63 95 06/03/17 07:45 16 92 06/03/17 07:00 93 16 115/72 98 06/03/17 05:58 99 16 111/74 94 06/03/17 05:30 16 117/83 90 06/03/17 05:00 95 16 112/69 95 06/03/17 04:00 98.3 F 98 16 111/76 98 06/03/17 03:40 16 108/70 96 06/03/17 03:00 90 16 113/73 94 06/03/17 02:00 95 16 111/73 100 06/03/17 01:35 16 113/70 99 06/03/17 01:00 96 16 104/69 100 06/03/17 00:00 95 16 104/77 100 06/02/17 23:17 99 06/02/17 23:15 16 104/67 98 06/02/17 23:00 98.1 F 99 16 104/67 98 06/02/17 22:00 107 16 103/77 84 06/02/17 21:23 16 93/57 92 06/02/17 21:00 97 16 110/72 92 06/02/17 20:00 97.9 F 100 16 98/57 95 06/02/17 19:37 16 92/80 91 06/02/17 19:00 100 16 108/66 87 06/02/17 18:00 100 16 94/70 92 06/02/17 17:17 16 108/63 89 06/02/17 17:00 99 16 98/61 97 06/02/17 16:00 98.6 F 95 16 93/56 94 06/02/17 15:59 98.6 F 95 16 93/56 94 06/02/17 15:51 16 92/68 92 06/02/17 15:37 99 06/02/17 15:00 98 16 98/61 89 06/02/17 14:00 99 16 97/57 90 06/02/17 13:29 16 93/65 90 06/02/17 13:00 95 16 96/53 90 06/02/17 12:00 98.2 F 103 3 97/65 90 06/02/17 11:48 102 06/02/17 11:00 104 16 95/48 90 06/02/17 10:00 106 16 106/62 90 06/02/17 09:26 16 103/55 92 Intake and Output 06/02/17 06/03/17 06/03/17 23:59 07:59 15:59 Intake Total 377 / 377 640 / 640 404 / 404 Output Total 3200 / 3200 3900 / 3900 Balance -2823 / -2823 -3260 / -3260 404 / 404 Intake: IV Fluids 377 / 377 640 / 640 404 / 404 FentaNYL (PF) 1,000 MCG 40 / 40 100 / 100 In 0.9 % Sodium Chloride 80 ML @ 50 MCG/HR 5 mls/ hr IVC [facility] [place] Rx#: [id number] Heparin 25,000 UNIT/500 500 / 500 ML D5W 25,000 unit In 500 ml @ 14 UNIT/KG/HR 44. 408 mls/hr IVC .[id number] [place] Rx#:[id number] Versed 50 MG In 0.9 % 85 / 85 Sodium Chloride 90 ML @ 2 MG/HR 4 mls/hr IVC [facility] [place] Rx#:[id number] Levophed 4 MG In Dextrose 28 / 28 40 / 40 0 / 0 5% 250 ML @ 2 MCG/MIN 7. 5 mls/hr IVC [facility] [place] Rx# :[id number] Calcium Gluconate 2,000 120 / 120 MG In Dextrose 5% 100 ML @ 220 mls/hr IVPB ONCE ONE Rx#:[id number] Magnesium Sulfate 2 GM In 104 / 104 104 / 104 Dextrose 5% 100 ML @ 50 mls/hr IVPB Q6H PRN Rx#: [id number] Primacor 20 MG In 0.9 % 100 / 100 Sodium Chloride 80 ML @ 0 .25 MCG/KG/MIN 11.91 mls/ hr IVPB .[id number] [place] Rx#: [id number] Potassium Chloride 20 mEq 200 / 200 /100 mL 40 meq In 200 ml @ 100 mls/hr IVPB Q1H PRN Rx#:[id number] Oral 0 / 0 Free Water Intake Amount 0 / 0 Output: Catheter 3200 / 3200 3900 / 3900 Other: Stool Size Large Stool Consistency liquid # Bowel Movements 1 Blood Glucose* 118 88 - General Appearance General appearance: Present: obese, chronically ill, sedated on ventilator, intubated, fatigue EENT: Present: ATNC Neck: Present: supple Respiratory: Present: course breath sounds Cardiology: Present: edema, normal S1, normal S2 Dialysis Vascular Access: Venous Catheter (The RIJ temporary HD triple lumen catheter was C/D/I) Gastrointestinal: Present: normoactive bowel sounds, no tenderness, obese Integumentary: Present: warm and dry Musculoskeletal: Present: no cyanosis, no clubbing - Lab 06/03/17 04:00 06/03/17 14:30 Most recent lab results ABG pH 7.46 pH Units (7.32-7.45) H 06/03/17 04:30 ABG pCO2 68 mmHg (35-45) H 06/03/17 04:30 ABG pO2 108 mmHg (85-104) H 06/03/17 04:30 ABG HCO3 48.4 mEQ/L (21-27) H 06/03/17 04:30 ABG O2 Saturation 98 % (95-98) 06/03/17 04:30 Calcium 9.2 mg/dL (8.6-10.8) 06/03/17 04:00 Phosphorus 3.7 mg/dL (2.3-4.7) 06/03/17 04:00 Magnesium 1.7 mg/dL (1.6-2.6) 06/03/17 04:00 - VTE Documentation of Mechanical Device: Intermittent pneumatic compression device Consult Discharge Plan - Plan Referrals: Sunny Stanley MD [Primary Care Provider] -
[2017-06-03 10:55] LABS: ABG HCO3 47.7 mEQ/L (21-27); ABG Oxygen Saturation 98 % (95-98); ABG PCO2 64 mmHg (35-45); ABG PH 7.48 pH Units (7.32-7.45); ABG PO2 94 mmHg (85-104); ABG TCO2 49.7 mEq/L (20-26); Blood Gas FiO2 100 %
--- NOTE | 2017-06-03 11:43 | Cardiology Progress Note ---
Date of Encounter: 06/03/17 Time of Encounter: 10:00 Assessment and Plan (1) Cor pulmonale Current Visit: Yes Status: Acute No acute overnight events. Patient's renal function continues to improve, continues to make urine and is responding well to diuresis. However, she continues to require pressor agents and is requiring high amounts of FIO2. May benefit from transfer to a tertiary care center where invasive hemodynamic monitoring can be performed. Case discussed with Critical Care attending. Discussion w patient/family: Patient family not at bedside. Spoke with Critical Care Attending about her case. Subjective Principal diagnosis: Respiratory insufficiency Interval history: No acute overnight events. Still requiring pressors and high FIO2. Patient continues to produce urine. Renal function continues to improve. Objective Vital Signs, Last 4 Hours Temp Pulse Resp BP Pulse Ox 06/03/17 11:19 14 102/66 88 06/03/17 11:11 96 06/03/17 11:00 97.2 F L 93 14 102/66 85 06/03/17 10:00 93 16 103/57 85 06/03/17 09:15 16 84/58 97 06/03/17 09:00 95 16 82/58 96 06/03/17 08:00 98.7 F 89 16 100/63 95 06/03/17 07:45 16 92 General: Other (Intubated, sedated) HEENT: Atraumatic, Normocephaly, Other (ETT in place) Neck: Other (JVP difficult to appreciate) Cardiac: Reg Rate and Rhythm, Other (distant heart sounds, no appreciable murmur or gallop) Lungs: Other (shallow breath sounds) Neuro: Other (sedated but arousable and able to follow commands) Abdomen: Soft, Other (soft bowel sounds present) Extremities: Other (bilateral pitting edema) Results 06/03/17 04:00 06/03/17 04:00 Lab Results 06/02/17 06/02/17 06/02/17 14:50 14:50 15:49 WBC Hgb Hct Plt Count APTT 73.9 H Sodium 138 Potassium 4.2 Chloride 96 L Carbon Dioxide 39 H BUN 44 H Creatinine 1.47 H Glucose 125 H Calcium 8.9 Magnesium 1.8 1.8 06/03/17 06/03/17 04:00 04:00 WBC 6.0 Hgb 9.5 L Hct 31.7 L Plt Count 135 L APTT Sodium 141 Potassium 3.9 Chloride 95 L Carbon Dioxide 37 H BUN 39 H Creatinine 1.19 H Glucose 96 Calcium 9.2 Magnesium 1.7 - Imaging and Cardiology Chest Xray: report reviewed (06/02/2017) - EKG Interpretation EKG results cardiology: other (24h telemetry was reviewed; demonstrated NSR average HR 96 bpm, no concerning dysrhythmia) - VTE Documentation of Mechanical Device: Intermittent pneumatic compression device Consult Discharge Plan - Plan Referrals: Sunny tSanley MD [Primary Care Provider] -
[2017-06-03 14:58] LABS: BUN/Creatinine Ratio 36 (6-26); Blood Urea Nitrogen 36 mg/dL (7-20); Calcium 9.5 mg/dL (8.6-10.8); Chloride 93 mEq/L (98-109); Glucose 98 mg/dL (70-99); Magnesium 1.7 mg/dL (1.6-2.6); Osmolality,Calculated 302 (280-300); Potassium 4.2 mEq/L (3.5-4.5); Sodium 142 mEq/L (136-145); eGFR For African Americans > 60 (> 60); eGFR For Non-African Americans 60 (> 60)
[2017-06-03 15:01] LABS: Carbon Dioxide 43 mEq/L (19-29)
[2017-06-03 19:26] LABS: ABG Base Excess 21.2 mEq/L (-2.0 to 3.0); ABG HCO3 49.6 mEQ/L (21-27); ABG Oxygen Saturation 89 % (95-98); ABG PO2 56 mmHg (85-104); ABG TCO2 52.1 mEq/L (20-26)
[2017-06-03] MEDS: Insulin DETEMIR 100 UNIT/ML X5UNITS SQ SCH (19:26)
[2017-06-03 19:28] LABS: Blood Gas FiO2 60 %
[2017-06-03 19:29] LABS: ABG PCO2 80 mmHg (35-45); Blood Gas PEEP 8 cm H2O; Blood Gas Respiration Rate 14
[2017-06-04] MEDS: Heparin 25,000 UNIT/500 ML D5W 25,000 UNIT/500 ML MLS IVC SCH ×2 (02:33→13:25)
[2017-06-04] MEDS: MILRINONE IVPB SCH ×2 (02:37→04:00)
[2017-06-04] MEDS: SODIUM CHLORIDE 0.9% IVPB SCH ×2 (02:37→04:00)
[2017-06-04] MEDS ORDERED: Nystatin Cream 15 GM TUBE TP SCH (03:00)
[2017-06-04] MEDS: Lacri-Lube 3.5 GM TUBE BOTH EYES SCH ×5 (04:01→19:26)
[2017-06-04 04:34] LABS: Basophils % 0.1 %; Eosinophils # 0.1 K/mcL (0.0-0.6); Eosinophils % 1.3 %; Hematocrit 33.4 % (35.3-44.9); Hemoglobin 9.9 g/dL (11.5-15.4); Immature Granulocytes % 0.4 % (0-4); Lymphocytes # 0.8 K/mcL (0.6-4.6); Lymphocytes % 11.1 %; Mean Corpuscular HGB Conc 29.6 g/dL (31.6-35.5); Mean Corpuscular Hemoglobin 28.6 pg (28.0-33.3); Mean Corpuscular Volume 96.5 fL (83.0-100.0); Mean Platelet Volume 11.2 fL (9.4-12.4); Monocytes # 0.4 K/mcL (0.0-1.3); Monocytes % 5.7 %; Neutrophils # 5.7 K/mcL (1.6-8.9); Platelet Count 121 K/mcL (140-400); Red Blood Count 3.46 M/mcL (3.82-4.97); Red Cell Distribution Width 20.5 % (11.5-14.5); Segmented Neutrophils % 81.4 %
[2017-06-04 04:35] LABS: ABG Base Excess 25.1 mEq/L (-2.0 to 3.0); ABG HCO3 54.5 mEQ/L (21-27); ABG Oxygen Saturation 93 % (95-98); ABG PH 7.39 pH Units (7.32-7.45); ABG PO2 67 mmHg (85-104); ABG TCO2 57.3 mEq/L (20-26)
[2017-06-04 04:36] LABS: Blood Gas FiO2 50 %; Blood Gas Respiration Rate 14
[2017-06-04 04:37] LABS: ABG PCO2 90 mmHg (35-45); Blood Gas PEEP 8 cm H2O
[2017-06-04 04:50] LABS: BUN/Creatinine Ratio 35 (6-26); Blood Urea Nitrogen 33 mg/dL (7-20); Chloride 93 mEq/L (98-109); Glucose 124 mg/dL (70-99); Magnesium 1.9 mg/dL (1.6-2.6); Osmolality,Calculated 301 (280-300); Phosphorous 4.8 mg/dL (2.3-4.7); Sodium 141 mEq/L (136-145); eGFR For African Americans > 60 (> 60); eGFR For Non-African Americans > 60 (> 60)
[2017-06-04 05:17] LABS: Carbon Dioxide 40 mEq/L (19-29)
[2017-06-04] MEDS: Magnesium Sulfate 2 GM in D5% in Water 100 ML IVPB PRN (05:55)
[2017-06-04] MEDS: Insulin LISPRO 300 UNITS/3 ML VIAL SQ SCH ×5 (08:31→19:23)
[2017-06-04] MEDS: Aspirin 81 MG TAB.CHEW PO SCH (08:40)
[2017-06-04] MEDS: Gabapentin 100 MG CAPSULE PO SCH ×3 (08:40→19:26)
[2017-06-04] MEDS: Chlorhexidine Rinse 15 ML MOUTHWASH MM SCH ×2 (08:40→19:26)
[2017-06-04] MEDS: Pantoprazole 40 MG VIAL IVP SCH (08:40)
[2017-06-04] MEDS: Cholecalciferol (D-3) 1,000 UNIT TABLET PO SCH (08:40)
--- NOTE | 2017-06-04 08:40 | Pulmonology Progress Note ---
Date of Encounter: 06/04/17 Time of Encounter: 08:39 Assessment and Plan (1) Acute and chronic respiratory failure Current Visit: Yes Status: Acute Neuropsych: Sedated for comfort while on vent goal [place] score 2 continue to lighten sedation as able and we will proceed with daily sedation holiday Pulm: Acute on chronic hypoxic hypercarbic respiratory failure with evidence of cor pulmonale requiring intubation and mechanical ventilation now with acceptable oxygenation ventilation today on minimal vent support with continued diuresis for pulmonary edema she will likely need evaluation for right-sided heart failure with concern for pulmonary hypertension it is unclear if this is all group 3 disease or if she does have some underlying PAH on top of this ( group 1) disease alternative consideration is for chronic thromboembolic pulmonary hypertension (GroupIV) which cannot be assessed adequately at this time given renal dysfunction however with improvement in creatinine over the last 24-48 hours I feel more confident that we could send for CT angiogram in the next day or so because of her high risk for venous thromboembolism we have empirically started her on therapeutic unfractionated heparin. She is not a candidate currently for V/Q scan Cards: Cardiogenic shock has resolved patient's off vasopressor and inotropic continue diuresis for pulmonary edema FEN-GI: GI prophylaxis given enteral nutrition has been started Renal: Acute kidney injury is resolved she continues to make good urine I has backed off the twice-daily diuretic regimen to once daily we will continue to monitor her electrolyte panel twice daily and replace electrolytes per protocol. She had been requiring continuous renal replacement therapy however that this is been terminated over the last 48 hours ID: No acute evidence of infection we will continue to monitor Heme/Onc: Continue heparin drip platelets hemoglobin are stable Endo: Glucose monitored sliding scale insulin as needed for hyperglycemia Integ/MSK: skin care to prevent ulcers per routine ICU protocol; I have examined all of her lines and there without evidence of infection CODE: Full code Qualifiers: Respiratory failure complication: hypoxia and hypercapnia Qualified Code(s) : J96.21 - Acute and chronic respiratory failure with hypoxia; J96.22 - Acute and chronic respiratory failure with hypercapnia (2) Acute on chronic renal failure Current Visit: Yes Status: Acute Qualifiers: Acute renal failure type: unspecified Chronic kidney disease stage: stage 3 (moderate) Qualified Code(s): N17.9 - Acute kidney failure, unspecified; N18.3 - Chronic kidney disease, stage 3 (moderate) (3) Moderate to severe pulmonary hypertension Current Visit: Yes Status: Chronic (4) Morbid obesity with BMI of 50.0-59.9, adult Current Visit: Yes Status: Chronic (5) Cand[place] intertrigo Current Visit: No Status: Acute (6) SMITA treated with BiPAP Current Visit: Yes Status: Chronic (7) Cor pulmonale Current Visit: Yes Status: Acute (8) Chronic systolic (congestive) heart failure Current Visit: Yes Status: Acute Subjective Principal diagnosis: Respiratory insufficiency Interval history: Ms. Corbett continues to make encouraging progress from a cardiopulmonary standpoint ventilatory requirements have gone down significantly her urine output remained strong and she has been weaned off vasopressor and inotropic support Objective PUL Vital signs: Last Vital Signs Temp 98.7 F 06/04/17 04:00 Pulse 93 06/04/17 08:00 Resp 16 06/04/17 08:00 BP 94/59 06/04/17 08:00 Pulse Ox 97 06/04/17 08:00 General appearance: other (She is sedated on the vent but awakens to voice she is able to nod her head to my questions and follow simple commands) Auscultation: bilateral: rales Cardiovascular: regular rate and rhythm Gastrointestinal: soft, non-tender Extremities: edema (2+ pitting lower extremity edema bilaterally) Musculoskeletal: no deformities non-focal exam, pupils equal and round Ventilator Settings Ventilator Settings: Ventilator Settings, Last 8 Hours Ventilator Mode PC Ventilator Mode PC Ventilator Mode PC Ventilator Mode PC Ventilator Mode PC Ventilator Mode PC Ventilator Mode PC Ventilator Mode PC Ventilator Mode PC Ventilator Mode PC Ventilator Mode PC Ventilator Mode PC Ventilator Tidal Volume 33 Setting Ventilator Tidal Volume 33 Setting Ventilator Tidal Volume 28 Setting Ventilator Tidal Volume 28 Setting Ventilator Tidal Volume 28 Setting Ventilator Tidal Volume 28 Setting Ventilator Tidal Volume 28 Setting Ventilator Tidal Volume 28 Setting Ventilator Tidal Volume 28 Setting Ventilator Tidal Volume 28 Setting Ventilator Tidal Volume 28 Setting Ventilator Respiratory Rate 16 Setting Ventilator Respiratory Rate 16 Setting Ventilator Respiratory Rate 16 Setting Ventilator Respiratory Rate 14 Setting Ventilator Respiratory Rate 14 Setting Ventilator Respiratory Rate 14 Setting Ventilator Respiratory Rate 14 Setting Ventilator Respiratory Rate 14 Setting Ventilator Respiratory Rate 14 Setting Ventilator Respiratory Rate 14 Setting Ventilator Respiratory Rate 14 Setting Ventilator Respiratory Rate 14 Setting Actual Respiratory Rate 16 Actual Respiratory Rate 16 Actual Respiratory Rate 16 Actual Respiratory Rate 15 Actual Respiratory Rate 14 Actual Respiratory Rate 14 Actual Respiratory Rate 14 Actual Respiratory Rate 14 Actual Respiratory Rate 14 Actual Respiratory Rate 14 Actual Respiratory Rate 14 Positive End Expiratory 8 Pressure Positive End Expiratory 8 Pressure Positive End Expiratory 8 Pressure Positive End Expiratory 8 Pressure Positive End Expiratory 8 Pressure Positive End Expiratory 8 Pressure Positive End Expiratory 8 Pressure Positive End Expiratory 8 Pressure Positive End Expiratory 8 Pressure Positive End Expiratory 8 Pressure Positive End Expiratory 8 Pressure Positive End Expiratory 8 Pressure Peak Inspiratory Airway 42 Pressure Peak Inspiratory Airway 42 Pressure Peak Inspiratory Airway 41 Pressure Peak Inspiratory Airway 36 Pressure Peak Inspiratory Airway 36 Pressure Peak Inspiratory Airway 36 Pressure Peak Inspiratory Airway 36 Pressure Peak Inspiratory Airway 36 Pressure Peak Inspiratory Airway 36 Pressure Peak Inspiratory Airway 36 Pressure Peak Inspiratory Airway 36 Pressure Results - Laboratory Findings CBC and BMP: 06/04/17 15:00 06/04/17 04:00 ABG ABG pH 7.39 pH Units (7.32-7.45) 06/04/17 04:25 ABG pCO2 90 mmHg (35-45) H* 06/04/17 04:25 ABG pO2 67 mmHg (85-104) L 06/04/17 04:25 ABG O2 Saturation 93 % (95-98) L 06/04/17 04:25 PT/INR, D-dimer PT 12.5 Seconds (9.4-12.1) H 05/31/17 15:15 Abnormal lab findings: Abnormal lab results RBC 3.46 M/mcL (3.82-4.97) L 06/04/17 04:00 Hgb 9.9 g/dL (11.5-15.4) L 06/04/17 04:00 Hct 33.4 % (35.3-44.9) L 06/04/17 04:00 MCHC 29.6 g/dL (31.6-35.5) L 06/04/17 04:00 RDW 20.5 % (11.5-14.5) H 06/04/17 04:00 Plt Count 121 K/mcL (140-400) L 06/04/17 04:00 Nucleated RBCs/100 WBC 0.3 /100 WBC (0) H 06/03/17 04:00 Reactive Lymphocytes Present (Not Present) A 06/01/17 03:30 Large Platelets Present (Not Present) A 06/01/17 03:30 Immature Plt Fraction 15.0 % (1.1-6.1) H 06/01/17 03:30 Polychromasia 1+ (Not Present) A 06/01/17 03:30 Hypochromasia Present (Not Present) A 05/30/17 03:06 Basophilic Stippling 1+ (Not Present) A 06/01/17 03:30 Anisocytosis 2+ (Not Present) A 06/01/17 03:30 PT 12.5 Seconds (9.4-12.1) H 05/31/17 15:15 APTT 73.1 Seconds (26.0-36.0) H 06/03/17 14:30 ABG pCO2 90 mmHg (35-45) H* 06/04/17 04:25 ABG pO2 67 mmHg (85-104) L 06/04/17 04:25 ABG HCO3 54.5 mEQ/L (21-27) H 06/04/17 04:25 ABG Total CO2 57.3 mEq/L (20-26) H 06/04/17 04:25 ABG O2 Saturation 93 % (95-98) L 06/04/17 04:25 ABG Base Excess 25.1 mEq/L (-2.0 to 3.0) H 06/04/17 04:25 VBG pH 7.50 pH Units (7.32-7.42) H 05/31/17 21:46 VBG pO2 202 mmHg (25-40) H 05/31/17 21:46 VBG HCO3 36.7 mEq/L (21-27) H 05/31/17 21:46 Mixed VBG pH 7.29 (7.34-7.36) L 05/31/17 21:46 Mixed VBG pCO2 89 mmHg (44-46) H 05/31/17 21:46 Mixed VBG pO2 73 mmHg (35-45) H 05/31/17 21:46 Mixed VBG Oxyhemoglobin 93.0 % (60-80) H 05/31/17 21:46 Chloride 93 mEq/L (98-109) L 06/04/17 04:00 Carbon Dioxide 40 mEq/L (19-29) H* 06/04/17 04:00 BUN 33 mg/dL (7-20) H 06/04/17 04:00 BUN/Creatinine Ratio 35 (6-26) H 06/04/17 04:00 Glucose 124 mg/dL (70-99) H 06/04/17 04:00 POC Glucose 119 (58-89) H 06/04/17 07:47 Calculated Osmolality 301 (280-300) H 06/04/17 04:00 Phosphorus 4.8 mg/dL (2.3-4.7) H 06/04/17 04:00 ALT 115 Units/L (0-55) H 06/01/17 03:30 Creatine Kinase 200 Units/L (29-168) H 06/01/17 03:06 Troponin I 0.36 ng/mL (0-0.03) H* 05/29/17 15:53 Serum Total Protein 5.7 g/dL (6.0-8.3) L 06/01/17 03:30 Albumin 2.3 g/dL (3.5-5.0) L 06/02/17 15:49 Albumin/Globulin Ratio 1.0 (1.1-2.2) L 06/01/17 03:30 Urine Clarity Hazy (Clear) A 05/29/17 18:15 Ur Specific [place] 1.026 (1.010-1.025) H 05/29/17 18:15 Urine Protein 30 mg/dL (Neg-Trace) H 05/29/17 18:15 Urine Ketones Trace mg/dL (Negative) H 05/29/17 18:15 Urine Bilirubin Small (Negative) H 05/29/17 18:15 Urine Microscopic WBC 15-30 per hpf (0-3) H 05/29/17 18:15 Ur Squamous Epith Cells Many per lpf (None-Few) H 05/29/17 18:15 Amorphous Sediment Moderate (Few) H 05/29/17 18:15 Urine Bacteria Moderate per hpf (None-Few) H 05/29/17 18:15 Hyaline Casts Moderate per lpf (None-Few) H 05/29/17 18:15 Ur Culture Indicated? YES (NO) A 05/29/17 18:15 - Clinical Findings Intake & Output: Intake & Output 06/03/17 06/04/17 06/04/17 23:59 07:59 15:59 Intake Total 535 / 535 724 / 724 Output Total 2200 / 2200 800 / 800 Balance -1665 / -1665 -76 / -76 Weight 154.4 kg - VTE Documentation of Mechanical Device: Intermittent pneumatic compression device Consult Discharge Plan - Plan Referrals: Sunny Stanley MD [Primary Care Provider] -
[2017-06-04] MEDS: Nystatin OINT 15 GM TUBE TP SCH ×4 (08:42→19:26)
[2017-06-04] MEDS: FentaNYL (PF) 1,000 MCG in 0.9 % Sodium Chloride 80 ML IVC SCH ×2 (08:45→21:13)
--- NOTE | 2017-06-04 10:37 | Cardiology Progress Note ---
Date of Encounter: 06/04/17 Time of Encounter: 10:00 Assessment and Plan (1) Cor pulmonale Current Visit: Yes Status: Acute Patient's respiratory status has significantly improved. Renal function has normalized. Urine output has slowed. Pressors/inotropes stopped overnight secondary to periods of tachycardia per NSG (not observed on telemetry). Recommend attempts at continued IV diuresis per critical care service. Anticipate attempts at extubation over the weekend. Discussion w patient/family: Patient family not at bedside. Discussed case with Critical Care attending. Subjective Principal diagnosis: Respiratory insufficiency Interval history: Per NSG, UOP slowed overnight and became concentrated. She has some episodes of SVT per NSG. Pressor/inotrope stopped overnight. BP stable. Oxygen requirements improved. Objective Vital Signs, Last 4 Hours Temp Pulse Resp BP Pulse Ox 06/04/17 10:00 97 16 91/58 98 06/04/17 09:28 16 95/66 97 06/04/17 09:00 92 16 100/63 98 06/04/17 08:00 93 16 94/59 97 06/04/17 07:46 16 93/57 98 06/04/17 07:30 98.8 F 06/04/17 07:00 105 16 96/62 97 General: Other (sedated but arousable) HEENT: Atraumatic, Other (ETT in place) Neck: Other (JVD not well appreciated) Cardiac: Reg Rate and Rhythm, Normal S1 and S2, No Murmur Lungs: No Wheeze, Rales, Rhonchi, Other (shallow breath sounds) Neuro: Other (sedated but arousable) Abdomen: Soft, Other (soft bowel sounds) Extremities: Other (bilateral LE pitting edema) Results 06/04/17 04:00 06/04/17 04:00 Lab Results 06/03/17 06/03/17 06/03/17 14:30 14:30 22:30 WBC Hgb Hct Plt Count APTT 73.1 H Sodium 142 Potassium 4.2 Chloride 93 L Carbon Dioxide 43 H* BUN 36 H Creatinine 1.01 Glucose 98 Calcium 9.5 Magnesium 1.7 1.7 06/04/17 06/04/17 04:00 04:00 WBC 7.0 Hgb 9.9 L Hct 33.4 L Plt Count 121 L APTT Sodium 141 Potassium 4.0 Chloride 93 L Carbon Dioxide 40 H* BUN 33 H Creatinine 0.95 Glucose 124 H Calcium 9.0 Magnesium 1.9 - EKG Interpretation EKG results cardiology: other (24h telemetry reviewed; average HR 101 bpm, no concerning dysrhythmia, no SVT, 3 beats NSVT) - VTE Documentation of Mechanical Device: Intermittent pneumatic compression device Consult Discharge Plan - Plan Referrals: Sunny Stanley MD [Primary Care Provider] -
[2017-06-04] MEDS: Nystatin POWDER 30 GM BOTTLE TP SCH ×2 (10:56→19:26)
[2017-06-04] MEDS ORDERED: Furosemide 40 MG/4 ML VIAL IV ONE (11:30)
[2017-06-04 15:42] LABS: Hematocrit 34.4 % (35.3-44.9); Hemoglobin 9.9 g/dL (11.5-15.4)
[2017-06-04 16:04] LABS: BUN/Creatinine Ratio 35 (6-26); Blood Urea Nitrogen 32 mg/dL (7-20); Calcium 9.3 mg/dL (8.6-10.8); Chloride 91 mEq/L (98-109); Glucose 125 mg/dL (70-99); Osmolality,Calculated 304 (280-300); Potassium 3.9 mEq/L (3.5-4.5); Sodium 143 mEq/L (136-145); eGFR For African Americans > 60 (> 60); eGFR For Non-African Americans > 60 (> 60)
[2017-06-04 16:10] LABS: Albumin 2.2 g/dL (3.5-5.0)
[2017-06-04 16:13] LABS: Carbon Dioxide 44 mEq/L (19-29)
--- NOTE | 2017-06-04 17:36 | Electrocardiograph Report ---
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
[2017-06-04] MEDS ORDERED: *HR* Heparin 5,000 UNIT/ML VIAL IVP PRN ×2 (17:50)
[2017-06-04] MEDS ORDERED: Heparin 25,000 UNIT/500 ML D5W 25,000 UNIT/500 ML MLS IVC SCH (18:00)
[2017-06-04] MEDS: Norepinephrine 4 MG in D5% in Water 250 ML IVC SCH (19:23)
[2017-06-04 20:34] LABS: Albumin 2.2 g/dL (3.5-5.0); Albumin/Globulin Ratio 0.7 (1.1-2.2); Bilirubin,Direct 3.6 mg/dL (0.0-0.5); Bilirubin,Indirect 1.3 mg/dL (0.0-1.2); Bilirubin,Total 4.9 mg/dL (0.2-1.2); Globulin 3.3 g/dL (2.4-3.5); Total Protein 5.5 g/dL (6.0-8.3)
[2017-06-05] MEDS: Lacri-Lube 3.5 GM TUBE BOTH EYES SCH ×6 (00:01→21:42)
[2017-06-05] MEDS: Insulin LISPRO 300 UNITS/3 ML VIAL SQ SCH ×6 (00:01→21:42)
[2017-06-05 03:48] LABS: ABG Base Excess 26.4 mEq/L (-2.0 to 3.0); ABG HCO3 56.4 mEQ/L (21-27); ABG Oxygen Saturation 93 % (95-98); ABG PO2 67 mmHg (85-104); ABG TCO2 59.2 mEq/L (20-26)
[2017-06-05 03:50] LABS: ABG PCO2 91 mmHg (35-45); Blood Gas FiO2 50 %
[2017-06-05 04:14] LABS: Basophils % 0.1 %; Eosinophils # 0.1 K/mcL (0.0-0.6); Eosinophils % 0.8 %; Hematocrit 34.7 % (35.3-44.9); Hemoglobin 10.3 g/dL (11.5-15.4); Immature Granulocytes % 0.4 % (0-4); Lymphocytes # 0.9 K/mcL (0.6-4.6); Lymphocytes % 11.8 %; Mean Corpuscular HGB Conc 29.7 g/dL (31.6-35.5); Mean Corpuscular Hemoglobin 28.8 pg (28.0-33.3); Mean Corpuscular Volume 96.9 fL (83.0-100.0); Mean Platelet Volume 12.7 fL (9.4-12.4); Monocytes # 0.5 K/mcL (0.0-1.3); Monocytes % 6.2 %; Neutrophils # 6.1 K/mcL (1.6-8.9); Platelet Count 139 K/mcL (140-400); Red Blood Count 3.58 M/mcL (3.82-4.97); Red Cell Distribution Width 20.3 % (11.5-14.5); Segmented Neutrophils % 80.7 %
[2017-06-05 04:24] LABS: BUN/Creatinine Ratio 34 (6-26); Blood Urea Nitrogen 30 mg/dL (7-20); Calcium 9.2 mg/dL (8.6-10.8); Chloride 91 mEq/L (98-109); Glucose 121 mg/dL (70-99); Magnesium 1.6 mg/dL (1.6-2.6); Osmolality,Calculated 299 (280-300); Phosphorous 4.5 mg/dL (2.3-4.7); Potassium 3.9 mEq/L (3.5-4.5); Sodium 141 mEq/L (136-145); eGFR For African Americans > 60 (> 60); eGFR For Non-African Americans > 60 (> 60)
[2017-06-05 04:27] LABS: Carbon Dioxide 41 mEq/L (19-29)
[2017-06-05] MEDS: Magnesium Sulfate 2 GM in D5% in Water 100 ML IVPB PRN ×2 (06:02→20:56)
[2017-06-05] MEDS: FentaNYL (PF) 1,000 MCG in 0.9 % Sodium Chloride 80 ML IVC SCH ×2 (06:08→16:38)
[2017-06-05] MEDS: Nystatin OINT 15 GM TUBE TP SCH ×4 (10:49→21:44)
[2017-06-05] MEDS: Nystatin POWDER 30 GM BOTTLE TP SCH ×2 (10:49→21:43)
[2017-06-05] MEDS: Chlorhexidine Rinse 15 ML MOUTHWASH MM SCH ×2 (10:50→21:41)
[2017-06-05] MEDS ORDERED: Furosemide 80 MG in 0.9 % Sodium Chloride 50 ML IVPB ONE (11:13)
[2017-06-05] MEDS ORDERED: Bisacodyl 10 MG RECTAL SUPPOSITORY RC PRN (11:14)
[2017-06-05] MEDS: Gabapentin 100 MG CAPSULE PO SCH ×3 (13:24→21:41)
[2017-06-05] MEDS: Pantoprazole 40 MG VIAL IVP SCH (13:35)
[2017-06-05 14:48] LABS: Albumin 2.2 g/dL (3.5-5.0); Albumin/Globulin Ratio 0.7 (1.1-2.2); Bilirubin,Direct 3.1 mg/dL (0.0-0.5); Bilirubin,Indirect 0.7 mg/dL (0.0-1.2); Globulin 3.3 g/dL (2.4-3.5); Magnesium 1.8 mg/dL (1.6-2.6); Total Protein 5.5 g/dL (6.0-8.3)
[2017-06-05 14:52] LABS: Bilirubin,Total 3.8 mg/dL (0.2-1.2)
[2017-06-05] MEDS: Aspirin 81 MG TAB.CHEW PO SCH (15:00)
[2017-06-05] MEDS: *HR* Heparin 5,000 UNIT/ML VIAL SQ SCH ×2 (15:00→21:41)
[2017-06-05] MEDS: Cholecalciferol (D-3) 1,000 UNIT TABLET PO SCH (15:00)
--- NOTE | 2017-06-05 15:02 | Pulmonology Progress Note ---
Date of Encounter: 06/05/17 Time of Encounter: 15:00 Assessment and Plan (1) Acute and chronic respiratory failure Current Visit: Yes Status: Acute Neuropsych: Sedated for comfort while on vent goal [place] score 2 cont daily sedation holiday Pulm: Acute on chronic hypoxic hypercarbic respiratory failure with evidence of cor pulmonale. Overall improving continue diuresis failed spontaneous breathing trial today we will try again tomorrow Cards: Cardiogenic shock has resolved patient's off vasopressor and inotropic continue diuresis for pulmonary edema FEN-GI: GI prophylaxis given enteral nutrition is at goal patient is also on a bowel regimen; right upper quadrant ultrasound and repeat hepatic panel to evaluate for cholecystitis although not indicated on CT scan patient does have rising bilirubin which may be more reflective of a critical illness Renal: Worsening contraction alkalosis but renal functions improving we will add Diamox 3 doses and continue diuresis ID: No acute evidence of infection we will continue to monitor Heme/Onc: DVT prophylaxis given hemoglobin and platelets are stable Endo: Glucose monitored sliding scale insulin as needed for hyperglycemia Integ/MSK: skin care to prevent ulcers per routine ICU protocol; I have examined all of her lines and they are without evidence of infection CODE: Full code Qualifiers: Respiratory failure complication: hypoxia and hypercapnia Qualified Code(s) : J96.21 - Acute and chronic respiratory failure with hypoxia; J96.22 - Acute and chronic respiratory failure with hypercapnia (2) Acute on chronic renal failure Current Visit: Yes Status: Acute Qualifiers: Acute renal failure type: unspecified Chronic kidney disease stage: stage 3 (moderate) Qualified Code(s): N17.9 - Acute kidney failure, unspecified; N18.3 - Chronic kidney disease, stage 3 (moderate) (3) Moderate to severe pulmonary hypertension Current Visit: Yes Status: Chronic (4) Morbid obesity with BMI of 50.0-59.9, adult Current Visit: Yes Status: Chronic (5) Candidal intertrigo Current Visit: No Status: Acute (6) SMITA treated with BiPAP Current Visit: Yes Status: Chronic (7) Cor pulmonale Current Visit: Yes Status: Acute (8) Chronic systolic (congestive) heart failure Current Visit: Yes Status: Acute Subjective Principal diagnosis: Respiratory insufficiency Interval history: Stable overnight went for CTA of chest abdomen and pelvis was notable for absence of filling defect in the pulmonary arteries there was evidence of cholelithiasis. Patient's bilirubin has gone up slightly since admission Objective PUL Vital signs: Last Vital Signs Temp 97.2 F L 06/05/17 11:00 Pulse 90 06/05/17 13:00 Resp 18 06/05/17 13:00 BP 92/62 06/05/17 13:00 Pulse Ox 95 06/05/17 13:00 General appearance: no acute distress, other (She is able to mouth words to me today follow commands and generally quite call) Eyes: nonicteric Effort: normal Auscultation: bilateral: diminished breath sounds Cardiovascular: regular rate and rhythm Gastrointestinal: soft, non-tender Extremities: anasarca Ventilator Settings Ventilator Settings: Ventilator Settings, Last 8 Hours Ventilator Mode PC Ventilator Mode PC Ventilator Mode PC Ventilator Mode PC Ventilator Mode CPAP Ventilator Mode PC Ventilator Tidal Volume 34 Setting Ventilator Tidal Volume 34 Setting Ventilator Tidal Volume 33 Setting Ventilator Tidal Volume 33 Setting Ventilator Tidal Volume 33 Setting Ventilator Respiratory Rate 18 Setting Ventilator Respiratory Rate 18 Setting Ventilator Respiratory Rate 18 Setting Ventilator Respiratory Rate 16 Setting Ventilator Respiratory Rate 16 Setting Actual Respiratory Rate 18 Actual Respiratory Rate 18 Actual Respiratory Rate 18 Actual Respiratory Rate 16 Actual Respiratory Rate 12 Actual Respiratory Rate 16 Positive End Expiratory 5 Pressure Positive End Expiratory 5 Pressure Positive End Expiratory 5 Pressure Positive End Expiratory 5 Pressure Positive End Expiratory 5 Pressure Positive End Expiratory 5 Pressure Peak Inspiratory Airway 39 Pressure Peak Inspiratory Airway 39 Pressure Peak Inspiratory Airway 38 Pressure Peak Inspiratory Airway 38 Pressure Peak Inspiratory Airway 15 Pressure Peak Inspiratory Airway 38 Pressure Results - Laboratory Findings CBC and BMP: 06/05/17 04:00 06/05/17 04:00 ABG ABG pH 7.40 pH Units (7.32-7.45) 06/05/17 03:36 ABG pCO2 91 mmHg (35-45) H* 06/05/17 03:36 ABG pO2 67 mmHg (85-104) L 06/05/17 03:36 ABG O2 Saturation 93 % (95-98) L 06/05/17 03:36 PT/INR, D-dimer PT 12.5 Seconds (9.4-12.1) H 05/31/17 15:15 Abnormal lab findings: Abnormal lab results RBC 3.58 M/mcL (3.82-4.97) L 06/05/17 04:00 Hgb 10.3 g/dL (11.5-15.4) L 06/05/17 04:00 Hct 34.7 % (35.3-44.9) L 06/05/17 04:00 MCHC 29.7 g/dL (31.6-35.5) L 06/05/17 04:00 RDW 20.3 % (11.5-14.5) H 06/05/17 04:00 Plt Count 139 K/mcL (140-400) L 06/05/17 04:00 MPV 12.7 fL (9.4-12.4) H 06/05/17 04:00 Nucleated RBCs/100 WBC 0.3 /100 WBC (0) H 06/03/17 04:00 Reactive Lymphocytes Present (Not Present) A 06/01/17 03:30 Large Platelets Present (Not Present) A 06/01/17 03:30 Immature Plt Fraction 15.0 % (1.1-6.1) H 06/01/17 03:30 Polychromasia 1+ (Not Present) A 06/01/17 03:30 Hypochromasia Present (Not Present) A 05/30/17 03:06 Basophilic Stippling 1+ (Not Present) A 06/01/17 03:30 Anisocytosis 2+ (Not Present) A 06/01/17 03:30 PT 12.5 Seconds (9.4-12.1) H 05/31/17 15:15 APTT 100.2 Seconds (26.0-36.0) H 06/04/17 14:17 ABG pCO2 91 mmHg (35-45) H* 06/05/17 03:36 ABG pO2 67 mmHg (85-104) L 06/05/17 03:36 ABG HCO3 56.4 mEQ/L (21-27) H 06/05/17 03:36 ABG Total CO2 59.2 mEq/L (20-26) H 06/05/17 03:36 ABG O2 Saturation 93 % (95-98) L 06/05/17 03:36 ABG Base Excess 26.4 mEq/L (-2.0 to 3.0) H 06/05/17 03:36 VBG pH 7.50 pH Units (7.32-7.42) H 05/31/17 21:46 VBG pO2 202 mmHg (25-40) H 05/31/17 21:46 VBG HCO3 36.7 mEq/L (21-27) H 05/31/17 21:46 Mixed VBG pH 7.29 (7.34-7.36) L 05/31/17 21:46 Mixed VBG pCO2 89 mmHg (44-46) H 05/31/17 21:46 Mixed VBG pO2 73 mmHg (35-45) H 05/31/17 21:46 Mixed VBG Oxyhemoglobin 93.0 % (60-80) H 05/31/17 21:46 Chloride 91 mEq/L (98-109) L 06/05/17 04:00 Carbon Dioxide 41 mEq/L (19-29) H* 06/05/17 04:00 BUN 30 mg/dL (7-20) H 06/05/17 04:00 BUN/Creatinine Ratio 34 (6-26) H 06/05/17 04:00 Glucose 121 mg/dL (70-99) H 06/05/17 04:00 POC Glucose 120 (58-89) H 06/05/17 11:34 Total Bilirubin 3.8 mg/dL (0.2-1.2) H 06/05/17 14:22 Direct Bilirubin 3.1 mg/dL (0.0-0.5) H 06/05/17 14:22 Creatine Kinase 200 Units/L (29-168) H 06/01/17 03:06 Troponin I 0.36 ng/mL (0-0.03) H* 05/29/17 15:53 Serum Total Protein 5.5 g/dL (6.0-8.3) L 06/05/17 14:22 Albumin 2.2 g/dL (3.5-5.0) L 06/05/17 14:22 Albumin/Globulin Ratio 0.7 (1.1-2.2) L 06/05/17 14:22 Urine Clarity Hazy (Clear) A 05/29/17 18:15 Ur Specific [place] 1.026 (1.010-1.025) H 05/29/17 18:15 Urine Protein 30 mg/dL (Neg-Trace) H 05/29/17 18:15 Urine Ketones Trace mg/dL (Negative) H 05/29/17 18:15 Urine Bilirubin Small (Negative) H 05/29/17 18:15 Urine Microscopic WBC 15-30 per hpf (0-3) H 05/29/17 18:15 Ur Squamous Epith Cells Many per lpf (None-Few) H 05/29/17 18:15 Amorphous Sediment Moderate (Few) H 05/29/17 18:15 Urine Bacteria Moderate per hpf (None-Few) H 05/29/17 18:15 Hyaline Casts Moderate per lpf (None-Few) H 05/29/17 18:15 Ur Culture Indicated? YES (NO) A 05/29/17 18:15 - Diagnostic Findings Chest x-ray: report reviewed, image reviewed CT scan - chest: report reviewed, image reviewed - Clinical Findings Intake & Output: Intake & Output 06/04/17 06/05/17 06/05/17 23:59 07:59 15:59 Intake Total 577 / 577 257 / 257 100 / 100 Output Total 1974 1500 / 1500 550 / 550 Balance -1398 / -1398 -1243 / -1243 -450 / -450 Weight 154 kg - VTE Documentation of Mechanical Device: Intermittent pneumatic compression device Consult Discharge Plan - Plan Referrals: Sunny Stanley MD [Primary Care Provider] -
[2017-06-05] MEDS: Norepinephrine 4 MG in D5% in Water 250 ML IVC SCH (22:12)
[2017-06-06] MEDS: Insulin LISPRO 300 UNITS/3 ML VIAL SQ SCH ×6 (00:29→20:00)
[2017-06-06] MEDS: Lacri-Lube 3.5 GM TUBE BOTH EYES SCH ×6 (00:29→19:39)
[2017-06-06] MEDS: FentaNYL (PF) 1,000 MCG in 0.9 % Sodium Chloride 80 ML IVC SCH ×3 (01:45→22:19)
[2017-06-06 04:29] LABS: ABG Base Excess 25.8 mEq/L (-2.0 to 3.0); ABG HCO3 52.9 mEQ/L (21-27); ABG Oxygen Saturation 87 % (95-98); ABG PH 7.48 pH Units (7.32-7.45); ABG TCO2 55.1 mEq/L (20-26)
[2017-06-06 04:31] LABS: Blood Gas FiO2 50 %
[2017-06-06 04:33] LABS: ABG PCO2 71 mmHg (35-45); ABG PO2 49 mmHg (85-104)
[2017-06-06] MEDS: *HR* Heparin 5,000 UNIT/ML VIAL SQ SCH ×3 (05:03→19:37)
[2017-06-06 05:04] LABS: Basophils % 0.1 %; Eosinophils % 0.6 %; Hematocrit 32.1 % (35.3-44.9); Hemoglobin 9.3 g/dL (11.5-15.4); Immature Granulocytes % 0.3 % (0-4); Immature Platelets 10.6 % (1.1-6.1); Lymphocytes # 0.8 K/mcL (0.6-4.6); Lymphocytes % 12.4 %; Mean Corpuscular Hemoglobin 28.6 pg (28.0-33.3); Mean Corpuscular Volume 98.8 fL (83.0-100.0); Mean Platelet Volume 12.8 fL (9.4-12.4); Monocytes # 0.6 K/mcL (0.0-1.3); Monocytes % 8.7 %; Neutrophils # 5.2 K/mcL (1.6-8.9); Platelet Count 145 K/mcL (140-400); Red Blood Count 3.25 M/mcL (3.82-4.97); Segmented Neutrophils % 77.9 %
[2017-06-06 05:17] LABS: Alanine Aminotransferase 35 Units/L (0-55); Albumin/Globulin Ratio 0.6 (1.1-2.2); Alkaline Phosphatase 87 Units/L (38-126); Aspartate Amino Transferase 24 Units/L (5-34); BUN/Creatinine Ratio 32 (6-26); Bilirubin,Indirect 1.2 mg/dL (0.0-1.2); Bilirubin,Total 3.1 mg/dL (0.2-1.2); Blood Urea Nitrogen 28 mg/dL (7-20); Calcium 9.2 mg/dL (8.6-10.8); Chloride 93 mEq/L (98-109); Globulin 3.2 g/dL (2.4-3.5); Glucose 121 mg/dL (70-99); Magnesium 1.9 mg/dL (1.6-2.6); Osmolality,Calculated 301 (280-300); Sodium 142 mEq/L (136-145); Total Protein 5.2 g/dL (6.0-8.3); eGFR For African Americans > 60 (> 60); eGFR For Non-African Americans > 60 (> 60)
[2017-06-06 05:18] LABS: Bilirubin,Direct 1.9 mg/dL (0.0-0.5); Potassium 3.9 mEq/L (3.5-4.5)
[2017-06-06 05:19] LABS: Carbon Dioxide 46 mEq/L (19-29)
[2017-06-06] MEDS: Magnesium Sulfate 2 GM in D5% in Water 100 ML IVPB PRN ×2 (06:24→20:20)
--- NOTE | 2017-06-06 08:11 | Pulmonology Progress Note ---
Date of Encounter: 06/06/17 Time of Encounter: 08:11 Assessment and Plan (1) Acute and chronic respiratory failure Current Visit: Yes Status: Acute Neuropsych: Sedated for comfort while on vent goal [place] score 2 cont daily sedation holiday Pulm: Acute on chronic hypoxic hypercarbic respiratory failure with evidence of cor pulmonale. Overall improving continue diuresis failed spontaneous breathing trial today we will try again tomorrow Cards: Cardiogenic shock has resolved patient's off vasopressor and inotropic continue diuresis for pulmonary edema FEN-GI: GI prophylaxis given enteral nutrition is at goal patient is also on a bowel regimen; right upper quadrant ultrasound negative for acute cholecystitis Renal: Worsening contraction alkalosis but renal function stable we cont Diamox 3 doses and continue diuresis for goal 1-2 L today ID: No acute evidence of infection we will continue to monitor Heme/Onc: DVT prophylaxis given hemoglobin and platelets are stable Endo: Glucose monitored sliding scale insulin as needed for hyperglycemia Integ/MSK: skin care to prevent ulcers per routine ICU protocol; I have examined all of her lines and they are without evidence of infection; we will attempt to get peripheral IV access or midline IV access and full right femoral CVC catheter CODE: Full code Qualifiers: Respiratory failure complication: hypoxia and hypercapnia Qualified Code(s) : J96.21 - Acute and chronic respiratory failure with hypoxia; J96.22 - Acute and chronic respiratory failure with hypercapnia (2) Acute on chronic renal failure Current Visit: Yes Status: Acute Qualifiers: Acute renal failure type: unspecified Chronic kidney disease stage: stage 3 (moderate) Qualified Code(s): N17.9 - Acute kidney failure, unspecified; N18.3 - Chronic kidney disease, stage 3 (moderate) (3) Moderate to severe pulmonary hypertension Current Visit: Yes Status: Chronic (4) Morbid obesity with BMI of 50.0-59.9, adult Current Visit: Yes Status: Chronic (5) Candidal intertrigo Current Visit: No Status: Acute (6) SMITA treated with BiPAP Current Visit: Yes Status: Chronic (7) Cor pulmonale Current Visit: Yes Status: Acute (8) Chronic systolic (congestive) heart failure Current Visit: Yes Status: Acute Subjective Principal diagnosis: Respiratory insufficiency Interval history: Stable overnight did poorly on spontaneous breathing trial today and placed back on A/C vent support. Continues to have excellent urine output Objective PUL Vital signs: Last Vital Signs Temp 99.1 F 06/06/17 07:50 Pulse 110 06/06/17 07:43 Resp 16 06/06/17 07:09 BP 125/69 06/06/17 07:09 Pulse Ox 97 06/06/17 07:09 General appearance: no acute distress, other (She is on sedation but arouses to voice able to follow commands and mouth words) Eyes: nonicteric Auscultation: bilateral: diminished breath sounds, rales Cardiovascular: regular rate and rhythm Gastrointestinal: normoactive bowel sounds, soft Extremities: anasarca non-focal exam, pupils equal and round mood appropriate Ventilator Settings Ventilator Settings: Ventilator Settings, Last 8 Hours Ventilator Mode CPAP Ventilator Mode CPAP Ventilator Mode PC Ventilator Mode PC Ventilator Mode PC Ventilator Mode PC Ventilator Mode PC Ventilator Mode PC Ventilator Mode PC Ventilator Mode PC Ventilator Mode PC Ventilator Mode PC Ventilator Tidal Volume 34 Setting Ventilator Tidal Volume 34 Setting Ventilator Tidal Volume 34 Setting Ventilator Tidal Volume 34 Setting Ventilator Tidal Volume 34 Setting Ventilator Tidal Volume 34 Setting Ventilator Tidal Volume 34 Setting Ventilator Tidal Volume 34 Setting Ventilator Tidal Volume 34 Setting Ventilator Tidal Volume 34 Setting Ventilator Tidal Volume 34 Setting Ventilator Respiratory Rate 18 Setting Ventilator Respiratory Rate 18 Setting Ventilator Respiratory Rate 18 Setting Ventilator Respiratory Rate 18 Setting Ventilator Respiratory Rate 18 Setting Ventilator Respiratory Rate 18 Setting Ventilator Respiratory Rate 18 Setting Ventilator Respiratory Rate 18 Setting Ventilator Respiratory Rate 18 Setting Ventilator Respiratory Rate 18 Setting Actual Respiratory Rate 16 Actual Respiratory Rate 16 Actual Respiratory Rate 18 Actual Respiratory Rate 18 Actual Respiratory Rate 18 Actual Respiratory Rate 18 Actual Respiratory Rate 18 Actual Respiratory Rate 18 Actual Respiratory Rate 18 Actual Respiratory Rate 18 Actual Respiratory Rate 18 Positive End Expiratory 5 Pressure Positive End Expiratory 5 Pressure Positive End Expiratory 5 Pressure Positive End Expiratory 5 Pressure Positive End Expiratory 5 Pressure Positive End Expiratory 5 Pressure Positive End Expiratory 5 Pressure Positive End Expiratory 5 Pressure Positive End Expiratory 5 Pressure Positive End Expiratory 5 Pressure Positive End Expiratory 5 Pressure Positive End Expiratory 5 Pressure Peak Inspiratory Airway 15 Pressure Peak Inspiratory Airway 16 Pressure Peak Inspiratory Airway 39 Pressure Peak Inspiratory Airway 39 Pressure Peak Inspiratory Airway 39 Pressure Peak Inspiratory Airway 40 Pressure Peak Inspiratory Airway 39 Pressure Peak Inspiratory Airway 39 Pressure Peak Inspiratory Airway 39 Pressure Peak Inspiratory Airway 39 Pressure Peak Inspiratory Airway 39 Pressure Results - Laboratory Findings CBC and BMP: 06/06/17 04:40 06/06/17 04:40 ABG ABG pH 7.48 pH Units (7.32-7.45) H 06/06/17 04:08 ABG pCO2 71 mmHg (35-45) H* 06/06/17 04:08 ABG pO2 49 mmHg (85-104) L* 06/06/17 04:08 ABG O2 Saturation 87 % (95-98) L 06/06/17 04:08 PT/INR, D-dimer PT 12.5 Seconds (9.4-12.1) H 05/31/17 15:15 Abnormal lab findings: Abnormal lab results RBC 3.25 M/mcL (3.82-4.97) L 06/06/17 04:40 Hgb 9.3 g/dL (11.5-15.4) L 06/06/17 04:40 Hct 32.1 % (35.3-44.9) L 06/06/17 04:40 MCHC 29.0 g/dL (31.6-35.5) L 06/06/17 04:40 RDW 20.0 % (11.5-14.5) H 06/06/17 04:40 MPV 12.8 fL (9.4-12.4) H 06/06/17 04:40 Nucleated RBCs/100 WBC 0.3 /100 WBC (0) H 06/03/17 04:00 Reactive Lymphocytes Present (Not Present) A 06/01/17 03:30 Large Platelets Present (Not Present) A 06/01/17 03:30 Immature Plt Fraction 10.6 % (1.1-6.1) H 06/06/17 04:40 Polychromasia 1+ (Not Present) A 06/01/17 03:30 Hypochromasia Present (Not Present) A 05/30/17 03:06 Basophilic Stippling 1+ (Not Present) A 06/01/17 03:30 Anisocytosis 2+ (Not Present) A 06/01/17 03:30 PT 12.5 Seconds (9.4-12.1) H 05/31/17 15:15 APTT 100.2 Seconds (26.0-36.0) H 06/04/17 14:17 ABG pH 7.48 pH Units (7.32-7.45) H 06/06/17 04:08 ABG pCO2 71 mmHg (35-45) H* 06/06/17 04:08 ABG pO2 49 mmHg (85-104) L* 06/06/17 04:08 ABG HCO3 52.9 mEQ/L (21-27) H 06/06/17 04:08 ABG Total CO2 55.1 mEq/L (20-26) H 06/06/17 04:08 ABG O2 Saturation 87 % (95-98) L 06/06/17 04:08 ABG Base Excess 25.8 mEq/L (-2.0 to 3.0) H 06/06/17 04:08 VBG pH 7.50 pH Units (7.32-7.42) H 05/31/17 21:46 VBG pO2 202 mmHg (25-40) H 05/31/17 21:46 VBG HCO3 36.7 mEq/L (21-27) H 05/31/17 21:46 Mixed VBG pH 7.29 (7.34-7.36) L 05/31/17 21:46 Mixed VBG pCO2 89 mmHg (44-46) H 05/31/17 21:46 Mixed VBG pO2 73 mmHg (35-45) H 05/31/17 21:46 Mixed VBG Oxyhemoglobin 93.0 % (60-80) H 05/31/17 21:46 Chloride 93 mEq/L (98-109) L 06/06/17 04:40 Carbon Dioxide 46 mEq/L (19-29) H* 06/06/17 04:40 BUN 28 mg/dL (7-20) H 06/06/17 04:40 BUN/Creatinine Ratio 32 (6-26) H 06/06/17 04:40 Glucose 121 mg/dL (70-99) H 06/06/17 04:40 POC Glucose 127 (58-89) H 06/06/17 07:18 Calculated Osmolality 301 (280-300) H 06/06/17 04:40 Total Bilirubin 3.1 mg/dL (0.2-1.2) H 06/06/17 04:40 Direct Bilirubin 1.9 mg/dL (0.0-0.5) H D 06/06/17 04:40 Creatine Kinase 200 Units/L (29-168) H 06/01/17 03:06 Troponin I 0.36 ng/mL (0-0.03) H* 05/29/17 15:53 Serum Total Protein 5.2 g/dL (6.0-8.3) L 06/06/17 04:40 Albumin 2.0 g/dL (3.5-5.0) L 06/06/17 04:40 Albumin/Globulin Ratio 0.6 (1.1-2.2) L 06/06/17 04:40 Urine Clarity Hazy (Clear) A 05/29/17 18:15 Ur Specific [place] 1.026 (1.010-1.025) H 05/29/17 18:15 Urine Protein 30 mg/dL (Neg-Trace) H 05/29/17 18:15 Urine Ketones Trace mg/dL (Negative) H 05/29/17 18:15 Urine Bilirubin Small (Negative) H 05/29/17 18:15 Urine Microscopic WBC 15-30 per hpf (0-3) H 05/29/17 18:15 Ur Squamous Epith Cells Many per lpf (None-Few) H 05/29/17 18:15 Amorphous Sediment Moderate (Few) H 05/29/17 18:15 Urine Bacteria Moderate per hpf (None-Few) H 05/29/17 18:15 Hyaline Casts Moderate per lpf (None-Few) H 05/29/17 18:15 Ur Culture Indicated? YES (NO) A 05/29/17 18:15 - Clinical Findings Intake & Output: Intake & Output 06/05/17 06/06/17 06/06/17 23:59 07:59 15:59 Intake Total 200 / 200 696 / 696 Output Total 1600 / 1600 1650 / 1650 Balance -1400 / -1400 -954 / -954 Weight 148.053 kg - VTE Documentation of Mechanical Device: Intermittent pneumatic compression device Consult Discharge Plan - Plan Referrals: Sunny Stanley MD [Primary Care Provider] -
[2017-06-06 08:58] LABS: ABG Base Excess 19.3 mEq/L (-2.0 to 3.0); ABG HCO3 47.5 mEQ/L (21-27); ABG Oxygen Saturation 98 % (95-98); ABG PH 7.41 pH Units (7.32-7.45); ABG PO2 103 mmHg (85-104); ABG TCO2 49.8 mEq/L (20-26)
[2017-06-06 08:59] LABS: ABG PCO2 75 mmHg (35-45); Blood Gas FiO2 50 %
[2017-06-06 09:00] LABS: Blood Gas PEEP 5 cm H2O
[2017-06-06] MEDS: Pantoprazole 40 MG VIAL IVP SCH (09:27)
[2017-06-06] MEDS: Gabapentin 100 MG CAPSULE PO SCH ×3 (09:27→19:37)
[2017-06-06] MEDS: Nystatin OINT 15 GM TUBE TP SCH ×4 (09:28→22:19)
[2017-06-06] MEDS: Aspirin 81 MG TAB.CHEW PO SCH (09:28)
[2017-06-06] MEDS: Cholecalciferol (D-3) 1,000 UNIT TABLET PO SCH (09:28)
[2017-06-06] MEDS: Nystatin POWDER 30 GM BOTTLE TP SCH ×2 (09:28→22:19)
[2017-06-06] MEDS: Chlorhexidine Rinse 15 ML MOUTHWASH MM SCH ×2 (09:28→19:37)
[2017-06-06] MEDS: Furosemide 80 MG in 0.9 % Sodium Chloride 50 ML IVPB SCH (13:35)
[2017-06-06] MEDS: Norepinephrine 4 MG in D5% in Water 250 ML IVC SCH (19:38)
[2017-06-07] MEDS: Lacri-Lube 3.5 GM TUBE BOTH EYES SCH ×3 (00:11→08:07)
[2017-06-07] MEDS: Insulin LISPRO 300 UNITS/3 ML VIAL SQ SCH ×6 (00:11→20:32)
[2017-06-07 04:53] LABS: Basophils % 0.2 %; Eosinophils % 1.1 %; Mean Corpuscular Volume 98.5 fL (83.0-100.0); Red Cell Distribution Width 19.9 % (11.5-14.5)
[2017-06-07 04:55] LABS: Eosinophils # 0.1 K/mcL (0.0-0.6); Hematocrit 32.2 % (35.3-44.9); Hemoglobin 9.4 g/dL (11.5-15.4); Immature Granulocytes % 0.9 % (0-4); Lymphocytes # 0.9 K/mcL (0.6-4.6); Mean Corpuscular HGB Conc 29.2 g/dL (31.6-35.5); Mean Corpuscular Hemoglobin 28.7 pg (28.0-33.3); Mean Platelet Volume 12.4 fL (9.4-12.4); Monocytes # 0.7 K/mcL (0.0-1.3); Monocytes % 10.1 %; Platelet Count 167 K/mcL (140-400); Red Blood Count 3.27 M/mcL (3.82-4.97); Segmented Neutrophils % 74.7 %
[2017-06-07 04:58] LABS: Alanine Aminotransferase 30 Units/L (0-55); Albumin 2.1 g/dL (3.5-5.0); Albumin/Globulin Ratio 0.6 (1.1-2.2); Alkaline Phosphatase 96 Units/L (38-126); Aspartate Amino Transferase 16 Units/L (5-34); BUN/Creatinine Ratio 28 (6-26); Bilirubin,Indirect 0.5 mg/dL (0.0-1.2); Bilirubin,Total 2.5 mg/dL (0.2-1.2); Blood Urea Nitrogen 28 mg/dL (7-20); Calcium 9.4 mg/dL (8.6-10.8); Chloride 93 mEq/L (98-109); Globulin 3.4 g/dL (2.4-3.5); Glucose 138 mg/dL (70-99); Neutrophils # 4.9 K/mcL (1.6-8.9); Osmolality,Calculated 302 (280-300); Potassium 4.2 mEq/L (3.5-4.5); Sodium 142 mEq/L (136-145); Total Protein 5.5 g/dL (6.0-8.3); eGFR For African Americans > 60 (> 60); eGFR For Non-African Americans > 60 (> 60)
[2017-06-07 05:00] LABS: Carbon Dioxide 42 mEq/L (19-29)
[2017-06-07 05:20] LABS: ABG Base Excess 19.6 mEq/L (-2.0 to 3.0); ABG HCO3 47.4 mEQ/L (21-27); ABG Oxygen Saturation 94 % (95-98); ABG PH 7.42 pH Units (7.32-7.45); ABG PO2 71 mmHg (85-104); ABG TCO2 49.6 mEq/L (20-26)
[2017-06-07 05:22] LABS: Blood Gas FiO2 50 %
[2017-06-07 05:23] LABS: ABG PCO2 73 mmHg (35-45)
[2017-06-07 05:30] LABS: Hypochromasia Present (Not Present); Platelet Estimate Normal (Normal)
[2017-06-07 05:31] LABS: Anisocytosis 1+ (Not Present)
[2017-06-07] MEDS: FentaNYL (PF) 1,000 MCG in 0.9 % Sodium Chloride 80 ML IVC SCH (05:43)
[2017-06-07] MEDS: *HR* Heparin 5,000 UNIT/ML VIAL SQ SCH ×3 (05:48→22:13)
[2017-06-07] MEDS: Cholecalciferol (D-3) 1,000 UNIT TABLET PO SCH (08:06)
[2017-06-07] MEDS: Gabapentin 100 MG CAPSULE PO SCH ×3 (08:06→20:32)
[2017-06-07] MEDS: Chlorhexidine Rinse 15 ML MOUTHWASH MM SCH ×2 (08:06→20:32)
[2017-06-07] MEDS: Pantoprazole 40 MG VIAL IVP SCH (08:06)
[2017-06-07] MEDS: Aspirin 81 MG TAB.CHEW PO SCH (08:07)
[2017-06-07] MEDS: Nystatin OINT 15 GM TUBE TP SCH ×4 (08:07→20:32)
[2017-06-07] MEDS: Nystatin POWDER 30 GM BOTTLE TP SCH ×2 (08:08→20:32)
[2017-06-07] MEDS: Ipratropium/Albuterol Neb 3 ML IH PRN (08:11)
[2017-06-07] MEDS: Budesonide/Formoterol 160/4.5 MDI IH SCH ×2 (10:43→22:02)
[2017-06-07] MEDS: Furosemide 80 MG in 0.9 % Sodium Chloride 50 ML IVPB SCH (12:43)
[2017-06-07] MEDS ORDERED: *HR* HYDROmorphone (PF) 1 MG/ML SYRINGE IVP PRN ×2 (12:45)
--- NOTE | 2017-06-07 12:47 | Pulmonology Progress Note ---
<Nell Lagunas - Last Filed: 06/07/17 13:32> Date of Encounter: 06/07/17 Time of Encounter: 12:44 Assessment and Plan (1) Acute and chronic respiratory failure Current Visit: Yes Status: Acute Patient initially presented to the hospital status post fall. She subsequently was found to have an increased troponin and to be in rhabdomyolysis. She began having respiratory distress. She was placed on BiPAP. She was emergently intubated for acute on chronic respiratory failure. She does have a history of coronary hypertension as well as decompensated right heart failure. She was intubated and placed on the ventilator. She was sedated with Versed as well as fentanyl. She was also placed on vasopressors and milrinone. She was diuresed with lasix. Patient had a spontaneous breathing trial this morning and sedation was weaned and turned off. She did well with this and subsequently was extubated. She is doing well at this time on BiPAP. Plan: Continue BiPAP Continue to monitor urine output. Heparin subcutaneous for DVT prophylaxis. Advance diet as tolerated Added Symbicort DC central line Place powerwand today. Qualifiers: Respiratory failure complication: hypoxia and hypercapnia Qualified Code(s) : J96.21 - Acute and chronic respiratory failure with hypoxia; J96.22 - Acute and chronic respiratory failure with hypercapnia (2) Chronic systolic (congestive) heart failure Current Visit: Yes Status: Acute Plan as above (3) Cor pulmonale Current Visit: Yes Status: Acute Plan as above (4) Moderate to severe pulmonary hypertension Current Visit: Yes Status: Chronic Plan as above (5) Morbid obesity with BMI of 50.0-59.9, adult Current Visit: Yes Status: Chronic Plan as above (6) SMITA treated with BiPAP Current Visit: Yes Status: Chronic Plan as above (7) Acute on chronic renal failure Current Visit: Yes Status: Acute Patient diuresing well. Creatinine has decreased. Plan: Continue to monitor urine output Continue to monitor creatinine Qualifiers: Acute renal failure type: unspecified Chronic kidney disease stage: stage 3 (moderate) Qualified Code(s): N17.9 - Acute kidney failure, unspecified; N18.3 - Chronic kidney disease, stage 3 (moderate) Subjective Principal diagnosis: Respiratory insufficiency Interval history: Patient stable overnight. Has had no events. She is currently off vasopressors. Sedation has been weaned. She is alert and following me throughout the room prior to extubation. Lung sounds are clear. Spontaneous breathing trial this morning was good so the patient was extubated. She is on BiPAP at this time and tolerating it well. She is mildly tachycardic right after extubation we will monitor this for several hours and possibly add back her beta obed. Objective PUL Vital signs: Last Vital Signs Temp 98.2 F 06/07/17 11:33 Pulse 114 06/07/17 10:00 Resp 15 06/07/17 12:11 BP 113/80 06/07/17 10:00 Pulse Ox 97 06/07/17 12:11 General appearance: no acute distress, alert Eyes: nonicteric ENT: oropharynx moist Neck: supple Effort: normal Auscultation: bilateral: clear Cardiovascular: regular rate and rhythm Gastrointestinal: normoactive bowel sounds, soft, non-tender, non-distended Integumentary: normal, other (Right femoral central line insertion site non- erythematous no discharge.) Extremities: no cyanosis Musculoskeletal: no deformities normal mental status, non-focal exam, pupils equal and round mood appropriate, affect normal Ventilator Settings Ventilator Settings: Ventilator Settings, Last 8 Hours Ventilator Mode CPAP Ventilator Mode CPAP Ventilator Mode CPAP Ventilator Mode CPAP Ventilator Mode PC Ventilator Mode PC Ventilator Mode PC Ventilator Tidal Volume 34 Setting Ventilator Tidal Volume 34 Setting Ventilator Tidal Volume 34 Setting Ventilator Respiratory Rate 18 Setting Ventilator Respiratory Rate 18 Setting Ventilator Respiratory Rate 18 Setting Actual Respiratory Rate 12 Actual Respiratory Rate 12 Actual Respiratory Rate 12 Actual Respiratory Rate 13 Actual Respiratory Rate 18 Actual Respiratory Rate 18 Positive End Expiratory 5 Pressure Positive End Expiratory 5 Pressure Positive End Expiratory 5 Pressure Positive End Expiratory 5 Pressure Positive End Expiratory 5 Pressure Positive End Expiratory 5 Pressure Positive End Expiratory 5 Pressure Peak Inspiratory Airway 16 Pressure Peak Inspiratory Airway 16 Pressure Peak Inspiratory Airway 16 Pressure Peak Inspiratory Airway 15 Pressure Peak Inspiratory Airway 39 Pressure Peak Inspiratory Airway 39 Pressure Results - Laboratory Findings CBC and BMP: 06/07/17 04:29 06/07/17 04:29 ABG ABG pH 7.42 pH Units (7.32-7.45) 06/07/17 05:10 ABG pCO2 73 mmHg (35-45) H* 06/07/17 05:10 ABG pO2 71 mmHg (85-104) L 06/07/17 05:10 ABG O2 Saturation 94 % (95-98) L 06/07/17 05:10 PT/INR, D-dimer PT 12.5 Seconds (9.4-12.1) H 05/31/17 15:15 Abnormal lab findings: Abnormal lab results RBC 3.27 M/mcL (3.82-4.97) L 06/07/17 04:29 Hgb 9.4 g/dL (11.5-15.4) L 06/07/17 04:29 Hct 32.2 % (35.3-44.9) L 06/07/17 04:29 MCHC 29.2 g/dL (31.6-35.5) L 06/07/17 04:29 RDW 19.9 % (11.5-14.5) H 06/07/17 04:29 Nucleated RBCs/100 WBC 0.3 /100 WBC (0) H 06/03/17 04:00 Reactive Lymphocytes Present (Not Present) A 06/01/17 03:30 Large Platelets Present (Not Present) A 06/01/17 03:30 Immature Plt Fraction 10.6 % (1.1-6.1) H 06/06/17 04:40 Polychromasia 1+ (Not Present) A 06/01/17 03:30 Hypochromasia Present (Not Present) A 06/07/17 04:29 Basophilic Stippling 1+ (Not Present) A 06/01/17 03:30 Anisocytosis 1+ (Not Present) A 06/07/17 04:29 PT 12.5 Seconds (9.4-12.1) H 05/31/17 15:15 APTT 100.2 Seconds (26.0-36.0) H 06/04/17 14:17 ABG pCO2 73 mmHg (35-45) H* 06/07/17 05:10 ABG pO2 71 mmHg (85-104) L 06/07/17 05:10 ABG HCO3 47.4 mEQ/L (21-27) H 06/07/17 05:10 ABG Total CO2 49.6 mEq/L (20-26) H 06/07/17 05:10 ABG O2 Saturation 94 % (95-98) L 06/07/17 05:10 ABG Base Excess 19.6 mEq/L (-2.0 to 3.0) H 06/07/17 05:10 VBG pH 7.50 pH Units (7.32-7.42) H 05/31/17 21:46 VBG pO2 202 mmHg (25-40) H 05/31/17 21:46 VBG HCO3 36.7 mEq/L (21-27) H 05/31/17 21:46 Mixed VBG pH 7.29 (7.34-7.36) L 05/31/17 21:46 Mixed VBG pCO2 89 mmHg (44-46) H 05/31/17 21:46 Mixed VBG pO2 73 mmHg (35-45) H 05/31/17 21:46 Mixed VBG Oxyhemoglobin 93.0 % (60-80) H 05/31/17 21:46 Chloride 93 mEq/L (98-109) L 06/07/17 04:29 Carbon Dioxide 42 mEq/L (19-29) H* 06/07/17 04:29 BUN 28 mg/dL (7-20) H 06/07/17 04:29 BUN/Creatinine Ratio 28 (6-26) H 06/07/17 04:29 Glucose 138 mg/dL (70-99) H 06/07/17 04:29 POC Glucose 130 (58-89) H 06/07/17 11:31 Calculated Osmolality 302 (280-300) H 06/07/17 04:29 Total Bilirubin 2.5 mg/dL (0.2-1.2) H 06/07/17 04:29 Direct Bilirubin 2.0 mg/dL (0.0-0.5) H 06/07/17 04:29 Creatine Kinase 200 Units/L (29-168) H 06/01/17 03:06 Troponin I 0.36 ng/mL (0-0.03) H* 05/29/17 15:53 Serum Total Protein 5.5 g/dL (6.0-8.3) L 06/07/17 04:29 Albumin 2.1 g/dL (3.5-5.0) L 06/07/17 04:29 Albumin/Globulin Ratio 0.6 (1.1-2.2) L 06/07/17 04:29 Urine Clarity Hazy (Clear) A 05/29/17 18:15 Ur Specific Perry 1.026 (1.010-1.025) H 07/01/17 18:15 Urine Protein 30 mg/dL (Neg-Trace) H 05/29/17 18:15 Urine Ketones Trace mg/dL (Negative) H 05/29/17 18:15 Urine Bilirubin Small (Negative) H 05/29/17 18:15 Urine Microscopic WBC 15-30 per hpf (0-3) H 05/29/17 18:15 Ur Squamous Epith Cells Many per lpf (None-Few) H 05/29/17 18:15 Amorphous Sediment Moderate (Few) H 05/29/17 18:15 Urine Bacteria Moderate per hpf (None-Few) H 05/29/17 18:15 Hyaline Casts Moderate per lpf (None-Few) H 05/29/17 18:15 Ur Culture Indicated? YES (NO) A 05/29/17 18:15 - Diagnostic Findings Additional studies: Knee X-Ray 05/29/17 09:34 IMPRESSION: No acute osseous abnormality Tiny joint effusion, either posttraumatic or reactive Atherosclerosis. Correlate with clinical risk factors D/ / John Guillaume MD / John Guillaume MD Interpreting Provider: John Guillaume MD Retroperitoneum Ultrasound 05/29/17 12:23 IMPRESSION: No evidence of hydronephrosis. Perihepatic ascites. 1.2 cm left renal cyst. D/ / Avinash Laboy MD / Avinash Laboy MD Interpreting Provider: Avinash Laboy MD Guidance Ultrasound 05/31/17 00:00 IMPRESSION: Successful temporary hemodialysis catheter placement. The catheter tip lies in the distal SVC. D/ / Albino Kaur MD / Albino Kaur MD Interpreting Provider: Albino Kaur MD Insertion Non-Tunneled Catheter 05/31/17 00:00 IMPRESSION: Successful temporary hemodialysis catheter placement. The catheter tip lies in the distal SVC. D/ / Albino Kaur MD / Albino Kaur MD Interpreting Provider: Albino Kaur MD Chest CTA 06/04/17 17:34 IMPRESSION: 1. No evidence of pulmonary embolus. 2. Cardiomegaly with findings of acute congestive heart failure evidenced by mild pulmonary edema and small layering bilateral pleural effusions. 3. Enlarged main pulmonary artery as can be seen in the setting of pulmonary arterial hypertension. 4. Moderate ascites. 5. Mild hepatosplenomegaly. 6. Cholelithiasis. 7. Diffuse anasarca. D/ / Ernst Barber MD / Ernst Barber MD Interpreting Provider: Ernst Barber MD Abdomen/Pelvis CT 06/04/17 19:15 IMPRESSION: 1. No evidence of pulmonary embolus. 2. Cardiomegaly with findings of acute congestive heart failure evidenced by mild pulmonary edema and small layering bilateral pleural effusions. 3. Enlarged main pulmonary artery as can be seen in the setting of pulmonary arterial hypertension. 4. Moderate ascites. 5. Mild hepatosplenomegaly. 6. Cholelithiasis. 7. Diffuse anasarca. D/ / Ernst Barber MD / Ernst Barber MD Interpreting Provider: Ernst Barber MD Gallbladder Ultrasound 06/05/17 07:00 IMPRESSION: 1. Cholelithiasis, without sonographic evidence of cholecystitis. 2. Mild hepatomegaly. 3. Mild amount of nonspecific perihepatic ascites, similar to the recent CT study. 4. Obscuration of the pancreas by overlying bowel gas. 5. Normal sonographic appearance of the common bile duct and right kidney. D/ / 06/05/2017 15:10:17 Roberto Richter MD / albert Interpreting Provider: Roberto Richter MD Chest X-Ray 06/05/17 18:46 IMPRESSION: Cardiomegaly and pulmonary venous congestion. Bibasilar opacities are unchanged since comparison examination and likely reflective of partial atelectasis. D/ / 06/05/2017 20:06:01 Kyler Wade MD / earnold Interpreting Provider: Kyler Wade MD X-Ray 06/05/17 18:46 IMPRESSION: Enteric tube coiled in the gastric body. D/ / Brayden Patel MD / Brayden Patel MD Interpreting Provider: Brayden Patel MD - Clinical Findings Intake & Output: Intake & Output 06/06/17 06/07/17 06/07/17 23:59 07:59 15:59 Intake Total 396 / 396 540.2 / 540.2 0 / 0 Output Total 900 / 900 1000 / 1000 Balance -504 / -504 -459.8 / -459.8 0 / 0 Weight 146.193 kg - VTE Documentation of Mechanical Device: Intermittent pneumatic compression device Consult Discharge Plan - Plan Referrals: Sunny Stanley MD [Primary Care Provider] - <Rebecca Hernandez - Last Filed: 06/07/17 17:48> Date of Encounter: 06/07/17 Objective PUL Vital signs: Last Vital Signs Temp 98.7 F 06/07/17 16:00 Pulse 116 06/07/17 17:00 Resp 18 06/07/17 17:00 BP 132/92 06/07/17 17:00 Pulse Ox 97 06/07/17 17:00 Results - Laboratory Findings CBC and BMP: 06/07/17 04:29 06/07/17 04:29 ABG ABG pH 7.42 pH Units (7.32-7.45) 06/07/17 05:10 ABG pCO2 73 mmHg (35-45) H* 06/07/17 05:10 ABG pO2 71 mmHg (85-104) L 06/07/17 05:10 ABG O2 Saturation 94 % (95-98) L 06/07/17 05:10 PT/INR, D-dimer PT 12.5 Seconds (9.4-12.1) H 05/31/17 15:15 Abnormal lab findings: Abnormal lab results RBC 3.27 M/mcL (3.82-4.97) L 06/07/17 04:29 Hgb 9.4 g/dL (11.5-15.4) L 06/07/17 04:29 Hct 32.2 % (35.3-44.9) L 06/07/17 04:29 MCHC 29.2 g/dL (31.6-35.5) L 06/07/17 04:29 RDW 19.9 % (11.5-14.5) H 06/07/17 04:29 Nucleated RBCs/100 WBC 0.3 /100 WBC (0) H 06/03/17 04:00 Reactive Lymphocytes Present (Not Present) A 06/01/17 03:30 Large Platelets Present (Not Present) A 06/01/17 03:30 Immature Plt Fraction 10.6 % (1.1-6.1) H 06/06/17 04:40 Polychromasia 1+ (Not Present) A 06/01/17 03:30 Hypochromasia Present (Not Present) A 06/07/17 04:29 Basophilic Stippling 1+ (Not Present) A 06/01/17 03:30 Anisocytosis 1+ (Not Present) A 06/07/17 04:29 PT 12.5 Seconds (9.4-12.1) H 05/31/17 15:15 APTT 100.2 Seconds (26.0-36.0) H 06/04/17 14:17 ABG pCO2 73 mmHg (35-45) H* 06/07/17 05:10 ABG pO2 71 mmHg (85-104) L 06/07/17 05:10 ABG HCO3 47.4 mEQ/L (21-27) H 06/07/17 05:10 ABG Total CO2 49.6 mEq/L (20-26) H 06/07/17 05:10 ABG O2 Saturation 94 % (95-98) L 06/07/17 05:10 ABG Base Excess 19.6 mEq/L (-2.0 to 3.0) H 06/07/17 05:10 VBG pH 7.50 pH Units (7.32-7.42) H 05/31/17 21:46 VBG pO2 202 mmHg (25-40) H 05/31/17 21:46 VBG HCO3 36.7 mEq/L (21-27) H 05/31/17 21:46 Mixed VBG pH 7.29 (7.34-7.36) L 05/31/17 21:46 Mixed VBG pCO2 89 mmHg (44-46) H 05/31/17 21:46 Mixed VBG pO2 73 mmHg (35-45) H 05/31/17 21:46 Mixed VBG Oxyhemoglobin 93.0 % (60-80) H 05/31/17 21:46 Chloride 93 mEq/L (98-109) L 06/07/17 04:29 Carbon Dioxide 42 mEq/L (19-29) H* 06/07/17 04:29 BUN 28 mg/dL (7-20) H 06/07/17 04:29 BUN/Creatinine Ratio 28 (6-26) H 06/07/17 04:29 Glucose 138 mg/dL (70-99) H 06/07/17 04:29 POC Glucose 113 (58-89) H 06/07/17 15:34 Calculated Osmolality 302 (280-300) H 06/07/17 04:29 Total Bilirubin 2.5 mg/dL (0.2-1.2) H 06/07/17 04:29 Direct Bilirubin 2.0 mg/dL (0.0-0.5) H 06/07/17 04:29 Creatine Kinase 200 Units/L (29-168) H 06/01/17 03:06 Troponin I 0.36 ng/mL (0-0.03) H* 05/29/17 15:53 Serum Total Protein 5.5 g/dL (6.0-8.3) L 06/07/17 04:29 Albumin 2.1 g/dL (3.5-5.0) L 06/07/17 04:29 Albumin/Globulin Ratio 0.6 (1.1-2.2) L 06/07/17 04:29 Urine Clarity Hazy (Clear) A 05/29/17 18:15 Ur Specific Perry 1.026 (1.010-1.025) H 05/29/17 18:15 Urine Protein 30 mg/dL (Neg-Trace) H 05/29/17 18:15 Urine Ketones Trace mg/dL (Negative) H 05/29/17 18:15 Urine Bilirubin Small (Negative) H 05/29/17 18:15 Urine Microscopic WBC 15-30 per hpf (0-3) H 05/29/17 18:15 Ur Squamous Epith Cells Many per lpf (None-Few) H 05/29/17 18:15 Amorphous Sediment Moderate (Few) H 05/29/17 18:15 Urine Bacteria Moderate per hpf (None-Few) H 05/29/17 18:15 Hyaline Casts Moderate per lpf (None-Few) H 05/29/17 18:15 Ur Culture Indicated? YES (NO) A 05/29/17 18:15 - Clinical Findings Intake & Output: Intake & Output 06/07/17 06/07/17 06/07/17 07:59 15:59 23:59 Intake Total 540.2 / 540.2 50 / 50 0 / 0 Output Total 1000 / 1000 425 / 425 Balance -459.8 / -459.8 -375 / -375 0 / 0 Weight 146.193 kg - Attending Attestation I examined this patient and my medical decision-making was reviewed with the STUNT MAN/PA/Advanced Practice Nurse/Resident Physician. I agree with the documented findings, disposition and treatment plan as described except to the extent set forth below. Patient seen and examined. Labs, radiology, chart personally reviewed. Agree with resident's history and physical, assessment, plan with following comments: SAAS ARCHITECT: Patient follows commands, Pulmonary: Acceptable oxygenation and ventilation. Patient extubated successfully and she will need noninvasive ventilation. Patient with pulmonary disease affecting her right side her failure with cor pulmonale Cardiovascular: stable. Continue diuresis GI: Nutrition per dietary and GI prophylaxis per routine Heme: DVT prophylaxis per routine ID: Continue antibiotics and plan to de-escalation Renal; urine out put and renal funtion reviewed Endorcine: blood glucose is monitored Lines: all lines checked and no evidence of infections Skin: skin care to prevent pressure ulcers per nursing routine care Possible transfer her out of ICU in next 1-2 days.
--- NOTE | 2017-06-07 14:29 | Cardiology Progress Note ---
Date of Encounter: 06/07/17 Time of Encounter: 14:00 Assessment and Plan (1) Cor pulmonale Current Visit: Yes Status: Acute Multifactorial: morbid obesity, SMITA, COPD, probable dCHF contributing to moderate severe pulmonary hypertension and RV failure. Patient's respiratory status has significantly improved. Renal function has normalized. Urine output has slowed. Pressors/inotropes discontinued and patient is now extubated on BIPAP. Continue judicious diuresis maintaining ~1 liter negative fluid balance daily while closely monitoring renal function. Continue current dosage of diuretic. (2) Secondary pulmonary hypertension Current Visit: No Status: Chronic Continue treating underlying causes (3) Morbid obesity with BMI of 50.0-59.9, adult Current Visit: Yes Status: Chronic Partial contributor of respiratory failure Discussion w patient/family: The assessment and plan as outlined above was discussed with the patient and/or family members who expressed understanding and agreement. All questions were answered. Thank you for involving us in the care of your patient. Please call with any questions. Subjective Principal diagnosis: Respiratory insufficiency Interval history: Patient resting comfortably with BIPAP. No distress. Objective Vital Signs, Last 4 Hours Temp Pulse Resp BP Pulse Ox 06/07/17 12:11 15 97 06/07/17 12:00 98.7 F 114 20 108/74 97 06/07/17 11:33 98.2 F 06/07/17 11:00 104 20 108/71 97 General: No Apparent Distress HEENT: Atraumatic Neck: No JVD Cardiac: Reg Rate and Rhythm Lungs: Other (rales BL) Neuro: No focal deficits noted Abdomen: Soft Skin: No rashes noted on visualized skin Musculoskeletal: No Chest Wall Tenderness Extremities: Other (2+ edema BL) Results 06/07/17 04:29 06/07/17 04:29 Lab Results 06/06/17 06/07/17 06/07/17 17:40 04:29 04:29 WBC 6.6 Hgb 9.4 L Hct 32.2 L Plt Count 167 Sodium 142 Potassium 4.2 Chloride 93 L Carbon Dioxide 42 H* BUN 28 H Creatinine 0.99 Glucose 138 H Calcium 9.4 Magnesium 1.9 2.0 Total Bilirubin 2.5 H AST 16 ALT 30 Alkaline Phosphatase 96 - VTE Documentation of Mechanical Device: Intermittent pneumatic compression device Consult Discharge Plan - Plan Referrals: Sunny Stanley MD [Primary Care Provider] -
[2017-06-07] MEDS: *HR* HYDROmorphone (PF) 1 MG/ML SYRINGE IVP PRN ×2 (14:57→22:13)
[2017-06-08] MEDS: Insulin LISPRO 300 UNITS/3 ML VIAL SQ SCH ×6 (01:06→20:41)
[2017-06-08] MEDS: *HR* HYDROmorphone (PF) 1 MG/ML SYRINGE IVP PRN ×4 (03:33→20:57)
[2017-06-08] MEDS: *HR* Heparin 5,000 UNIT/ML VIAL SQ SCH ×3 (05:33→20:45)
--- NOTE | 2017-06-08 07:27 | Pulmonology Progress Note ---
<CarmeloDomenico alarcon Kailee - Last Filed: 06/08/17 07:24> Date of Encounter: 06/08/17 Time of Encounter: 07:24 Assessment and Plan (1) Acute and chronic respiratory failure Current Visit: Yes Status: Acute Neuropsych: Patient is awake alert and answering questions appropriately. Pulm: SMITA with obesity hypoventilation syndrome. Continue BiPAP support. Cards: Chronic systolic heart failure with cor pulmonale. Continue diuresis with a goal of -1 L net negative daily. Cardiology following. FEN-GI: Advance diet as tolerated. PPI for decubiti prophylaxis. Renal: Acute renal failure has resolved. Good urine output. Continue IV diuresis and continue to monitor kidney function. ID: Continue IV antibiotics and plan for de-escalation. Heme/Onc: DVT prophylaxis per routine. Endo: Glucose monitored sliding scale insulin given for hyperglycemia as needed Integ/MSK: Skin care per routine ICU protocol to prevent skin ulcers all lines examined without evidence of infection CODE: Full code. Qualifiers: Respiratory failure complication: hypoxia and hypercapnia Qualified Code(s) : J96.21 - Acute and chronic respiratory failure with hypoxia; J96.22 - Acute and chronic respiratory failure with hypercapnia (2) Acute on chronic renal failure Current Visit: Yes Status: Acute Qualifiers: Acute renal failure type: unspecified Chronic kidney disease stage: stage 3 (moderate) Qualified Code(s): N17.9 - Acute kidney failure, unspecified; N18.3 - Chronic kidney disease, stage 3 (moderate) (3) Chronic systolic (congestive) heart failure Current Visit: Yes Status: Acute (4) Cor pulmonale Current Visit: Yes Status: Acute (5) Moderate to severe pulmonary hypertension Current Visit: Yes Status: Chronic (6) Morbid obesity with BMI of 50.0-59.9, adult Current Visit: Yes Status: Chronic (7) SMITA treated with BiPAP Current Visit: Yes Status: Chronic Subjective Principal diagnosis: Respiratory insufficiency Interval history: Patient seen and examined at bedside bedside. Patient states she feels pretty good today. She complains of mild abdominal pain. She is tolerating BiPAP well. Objective PUL Vital signs: Last Vital Signs Temp 98.6 F 06/08/17 01:18 Pulse 90 06/08/17 05:58 Resp 14 06/08/17 05:58 BP 86/69 06/08/17 05:58 Pulse Ox 97 06/08/17 05:58 General appearance: no acute distress ENT: oropharynx moist Auscultation: bilateral: diminished breath sounds Cardiovascular: regular rate and rhythm Gastrointestinal: normoactive bowel sounds, soft, tender (Epigastric), non- distended Extremities: no cyanosis, no clubbing, edema (1+ lower extremity bilaterally) normal mental status, non-focal exam mood appropriate, affect normal Results - Laboratory Findings CBC and BMP: 06/07/17 04:29 06/07/17 04:29 ABG ABG pH 7.42 pH Units (7.32-7.45) 06/07/17 05:10 ABG pCO2 73 mmHg (35-45) H* 06/07/17 05:10 ABG pO2 71 mmHg (85-104) L 06/07/17 05:10 ABG O2 Saturation 94 % (95-98) L 06/07/17 05:10 PT/INR, D-dimer PT 12.5 Seconds (9.4-12.1) H 05/31/17 15:15 Abnormal lab findings: Abnormal lab results RBC 3.27 M/mcL (3.82-4.97) L 06/07/17 04:29 Hgb 9.4 g/dL (11.5-15.4) L 06/07/17 04:29 Hct 32.2 % (35.3-44.9) L 06/07/17 04:29 MCHC 29.2 g/dL (31.6-35.5) L 06/07/17 04:29 RDW 19.9 % (11.5-14.5) H 06/07/17 04:29 Nucleated RBCs/100 WBC 0.3 /100 WBC (0) H 06/03/17 04:00 Reactive Lymphocytes Present (Not Present) A 06/01/17 03:30 Large Platelets Present (Not Present) A 06/01/17 03:30 Immature Plt Fraction 10.6 % (1.1-6.1) H 06/06/17 04:40 Polychromasia 1+ (Not Present) A 06/01/17 03:30 Hypochromasia Present (Not Present) A 06/07/17 04:29 Basophilic Stippling 1+ (Not Present) A 06/01/17 03:30 Anisocytosis 1+ (Not Present) A 06/07/17 04:29 PT 12.5 Seconds (9.4-12.1) H 05/31/17 15:15 APTT 100.2 Seconds (26.0-36.0) H 06/04/17 14:17 ABG pCO2 73 mmHg (35-45) H* 06/07/17 05:10 ABG pO2 71 mmHg (85-104) L 06/07/17 05:10 ABG HCO3 47.4 mEQ/L (21-27) H 06/07/17 05:10 ABG Total CO2 49.6 mEq/L (20-26) H 06/07/17 05:10 ABG O2 Saturation 94 % (95-98) L 06/07/17 05:10 ABG Base Excess 19.6 mEq/L (-2.0 to 3.0) H 06/07/17 05:10 VBG pH 7.50 pH Units (7.32-7.42) H 05/31/17 21:46 VBG pO2 202 mmHg (25-40) H 05/31/17 21:46 VBG HCO3 36.7 mEq/L (21-27) H 05/31/17 21:46 Mixed VBG pH 7.29 (7.34-7.36) L 05/31/17 21:46 Mixed VBG pCO2 89 mmHg (44-46) H 05/31/17 21:46 Mixed VBG pO2 73 mmHg (35-45) H 05/31/17 21:46 Mixed VBG Oxyhemoglobin 93.0 % (60-80) H 05/31/17 21:46 Chloride 93 mEq/L (98-109) L 06/07/17 04:29 Carbon Dioxide 42 mEq/L (19-29) H* 06/07/17 04:29 BUN 28 mg/dL (7-20) H 06/07/17 04:29 BUN/Creatinine Ratio 28 (6-26) H 06/07/17 04:29 Glucose 138 mg/dL (70-99) H 06/07/17 04:29 POC Glucose 94 (58-89) H 06/08/17 05:36 Calculated Osmolality 302 (280-300) H 06/07/17 04:29 Total Bilirubin 2.5 mg/dL (0.2-1.2) H 06/07/17 04:29 Direct Bilirubin 2.0 mg/dL (0.0-0.5) H 06/07/17 04:29 Creatine Kinase 200 Units/L (29-168) H 06/01/17 03:06 Troponin I 0.36 ng/mL (0-0.03) H* 05/29/17 15:53 Serum Total Protein 5.5 g/dL (6.0-8.3) L 06/07/17 04:29 Albumin 2.1 g/dL (3.5-5.0) L 06/07/17 04:29 Albumin/Globulin Ratio 0.6 (1.1-2.2) L 06/07/17 04:29 Urine Clarity Hazy (Clear) A 05/29/17 18:15 Ur Specific [place] 1.026 (1.010-1.025) H 05/29/17 18:15 Urine Protein 30 mg/dL (Neg-Trace) H 05/29/17 18:15 Urine Ketones Trace mg/dL (Negative) H 05/29/17 18:15 Urine Bilirubin Small (Negative) H 05/29/17 18:15 Urine Microscopic WBC 15-30 per hpf (0-3) H 05/29/17 18:15 Ur Squamous Epith Cells Many per lpf (None-Few) H 05/29/17 18:15 Amorphous Sediment Moderate (Few) H 05/29/17 18:15 Urine Bacteria Moderate per hpf (None-Few) H 05/29/17 18:15 Hyaline Casts Moderate per lpf (None-Few) H 05/29/17 18:15 Ur Culture Indicated? YES (NO) A 05/29/17 18:15 - Clinical Findings Intake & Output: Intake & Output 06/07/17 06/07/17 06/08/17 15:59 23:59 07:59 Intake Total 50 / 50 0 / 0 0 / 0 Output Total 425 / 425 450 / 450 200 / 200 Balance -375 / -375 -450 / -450 -200 / -200 Weight 144.333 kg - VTE Documentation of Mechanical Device: Intermittent pneumatic compression device Consult Discharge Plan - Plan Referrals: Sunny Stanley MD [Primary Care Provider] - <Rebecca Hernandez - Last Filed: 06/08/17 17:50> Date of Encounter: 06/08/17 Objective PUL Vital signs: Last Vital Signs Temp 98.5 F 06/08/17 17:35 Pulse 103 06/08/17 17:35 Resp 17 06/08/17 17:35 BP 112/73 06/08/17 17:35 Pulse Ox 95 06/08/17 17:35 Results - Laboratory Findings CBC and BMP: 06/07/17 04:29 06/07/17 04:29 ABG ABG pH 7.42 pH Units (7.32-7.45) 06/07/17 05:10 ABG pCO2 73 mmHg (35-45) H* 06/07/17 05:10 ABG pO2 71 mmHg (85-104) L 06/07/17 05:10 ABG O2 Saturation 94 % (95-98) L 06/07/17 05:10 PT/INR, D-dimer PT 12.5 Seconds (9.4-12.1) H 05/31/17 15:15 Abnormal lab findings: Abnormal lab results RBC 3.27 M/mcL (3.82-4.97) L 06/07/17 04:29 Hgb 9.4 g/dL (11.5-15.4) L 06/07/17 04:29 Hct 32.2 % (35.3-44.9) L 06/07/17 04:29 MCHC 29.2 g/dL (31.6-35.5) L 06/07/17 04:29 RDW 19.9 % (11.5-14.5) H 06/07/17 04:29 Nucleated RBCs/100 WBC 0.3 /100 WBC (0) H 06/03/17 04:00 Reactive Lymphocytes Present (Not Present) A 06/01/17 03:30 Large Platelets Present (Not Present) A 06/01/17 03:30 Immature Plt Fraction 10.6 % (1.1-6.1) H 06/06/17 04:40 Polychromasia 1+ (Not Present) A 06/01/17 03:30 Hypochromasia Present (Not Present) A 06/07/17 04:29 Basophilic Stippling 1+ (Not Present) A 06/01/17 03:30 Anisocytosis 1+ (Not Present) A 06/07/17 04:29 PT 12.5 Seconds (9.4-12.1) H 05/31/17 15:15 APTT 100.2 Seconds (26.0-36.0) H 06/04/17 14:17 ABG pCO2 73 mmHg (35-45) H* 06/07/17 05:10 ABG pO2 71 mmHg (85-104) L 06/07/17 05:10 ABG HCO3 47.4 mEQ/L (21-27) H 06/07/17 05:10 ABG Total CO2 49.6 mEq/L (20-26) H 06/07/17 05:10 ABG O2 Saturation 94 % (95-98) L 06/07/17 05:10 ABG Base Excess 19.6 mEq/L (-2.0 to 3.0) H 06/07/17 05:10 VBG pH 7.50 pH Units (7.32-7.42) H 05/31/17 21:46 VBG pO2 202 mmHg (25-40) H 05/31/17 21:46 VBG HCO3 36.7 mEq/L (21-27) H 05/31/17 21:46 Mixed VBG pH 7.29 (7.34-7.36) L 05/31/17 21:46 Mixed VBG pCO2 89 mmHg (44-46) H 05/31/17 21:46 Mixed VBG pO2 73 mmHg (35-45) H 05/31/17 21:46 Mixed VBG Oxyhemoglobin 93.0 % (60-80) H 05/31/17 21:46 Chloride 93 mEq/L (98-109) L 06/07/17 04:29 Carbon Dioxide 42 mEq/L (19-29) H* 06/07/17 04:29 BUN 28 mg/dL (7-20) H 06/07/17 04:29 BUN/Creatinine Ratio 28 (6-26) H 06/07/17 04:29 Glucose 138 mg/dL (70-99) H 06/07/17 04:29 POC Glucose 99 (58-89) H 06/08/17 15:55 Calculated Osmolality 302 (280-300) H 06/07/17 04:29 Total Bilirubin 2.5 mg/dL (0.2-1.2) H 06/07/17 04:29 Direct Bilirubin 2.0 mg/dL (0.0-0.5) H 06/07/17 04:29 Creatine Kinase 200 Units/L (29-168) H 06/01/17 03:06 Troponin I 0.36 ng/mL (0-0.03) H* 05/29/17 15:53 Serum Total Protein 5.5 g/dL (6.0-8.3) L 06/07/17 04:29 Albumin 2.1 g/dL (3.5-5.0) L 06/07/17 04:29 Albumin/Globulin Ratio 0.6 (1.1-2.2) L 06/07/17 04:29 Urine Clarity Hazy (Clear) A 05/29/17 18:15 Ur Specific [place] 1.026 (1.010-1.025) H 05/29/17 18:15 Urine Protein 30 mg/dL (Neg-Trace) H 05/29/17 18:15 Urine Ketones Trace mg/dL (Negative) H 05/29/17 18:15 Urine Bilirubin Small (Negative) H 05/29/17 18:15 Urine Microscopic WBC 15-30 per hpf (0-3) H 05/29/17 18:15 Ur Squamous Epith Cells Many per lpf (None-Few) H 05/29/17 18:15 Amorphous Sediment Moderate (Few) H 05/29/17 18:15 Urine Bacteria Moderate per hpf (None-Few) H 05/29/17 18:15 Hyaline Casts Moderate per lpf (None-Few) H 05/29/17 18:15 Ur Culture Indicated? YES (NO) A 05/29/17 18:15 - Clinical Findings Intake & Output: Intake & Output 06/08/17 06/08/17 06/08/17 07:59 15:59 23:59 Intake Total 0 / 0 Output Total 400 / 400 500 / 500 Balance -400 / -400 -500 / -500 Weight 144.333 kg 141.7 kg - Attending Attestation I examined this patient and my medical decision-making was reviewed with the ABLE BODIED TANKERMAN/PA/Advanced Practice Nurse/Resident Physician. I agree with the documented findings, disposition and treatment plan as described except to the extent set forth below. Patient seen and examined. Labs, radiology, chart personally reviewed. 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 Continue BiPAP Cardiovascular: stable and diuresis as tolerated GI: Nutrition per dietary and GI prophylaxis per routine Heme: DVT prophylaxis per routine ID: Continue antibiotics and plan to de-escalation Renal; urine out put and renal funtion reviewed Endorcine: blood glucose is monitored Lines: all lines checked and no evidence of infections Skin: skin care to prevent pressure ulcers per nursing routine care Patient is waiting for bed to be transferred to the floor.
[2017-06-08] MEDS ORDERED: Dextrose Gel 15 GM PO PRN ×2 (07:52)
[2017-06-08] MEDS ORDERED: *HR* Dextrose 50 % in Water (Syg) 50 ML SYRINGE IVP PRN (07:52)
[2017-06-08] MEDS ORDERED: Potassium Phosphate 44 MEQ in 0.9 % Sodium Chloride 250 ML IVPB PRN (07:52)
[2017-06-08] MEDS ORDERED: Ipratropium/Albuterol Neb 3 ML IH PRN (07:52)
[2017-06-08] MEDS ORDERED: D5% in Water 1,000 ML IVC PRN (07:52)
[2017-06-08] MEDS ORDERED: Magnesium Sulfate 2 GM in D5% in Water 100 ML IVPB PRN (07:52)
[2017-06-08] MEDS ORDERED: Ondansetron 4 MG/2 ML VIAL IVP PRN (07:52)
[2017-06-08] MEDS ORDERED: Potassium Chloride 40 MEQ/200 ML BAG IVPB PRN (07:52)
[2017-06-08] MEDS ORDERED: Potassium Chloride Elixir 20 MEQ/15 ML UDC PO PRN (07:52)
[2017-06-08] MEDS ORDERED: Naloxone 0.4 MG/ML INJ IVP PRN (07:52)
[2017-06-08] MEDS: Nystatin OINT 15 GM TUBE TP SCH ×4 (08:41→20:47)
[2017-06-08] MEDS: Nystatin POWDER 30 GM BOTTLE TP SCH ×2 (08:42→20:46)
[2017-06-08] MEDS: Pantoprazole 40 MG VIAL IVP SCH (08:46)
[2017-06-08] MEDS: Budesonide/Formoterol 160/4.5 MDI IH SCH ×2 (09:55→20:02)
[2017-06-08] MEDS: Aspirin 81 MG TAB.CHEW PO SCH (11:38)
[2017-06-08] MEDS: Cholecalciferol (D-3) 1,000 UNIT TABLET PO SCH (11:39)
[2017-06-08] MEDS: Gabapentin 100 MG CAPSULE PO SCH ×3 (11:39→20:45)
[2017-06-08] MEDS ORDERED: Acetaminophen IV 1,000 MG/100 ML INFUS..BTL IVPB ONE (18:18)
[2017-06-09] MEDS: *HR* HYDROmorphone (PF) 1 MG/ML SYRINGE IVP PRN ×5 (01:43→22:04)
[2017-06-09] MEDS: Insulin LISPRO 300 UNITS/3 ML VIAL SQ SCH ×6 (05:03→20:42)
[2017-06-09] MEDS: *HR* Heparin 5,000 UNIT/ML VIAL SQ SCH ×3 (05:08→20:47)
[2017-06-09 08:24] LABS: Hemoglobin 9.8 g/dL (11.5-15.4)
[2017-06-09 08:25] LABS: Eosinophils # 0.1 K/mcL (0.0-0.6); Hematocrit 34.4 % (35.3-44.9); Mean Corpuscular HGB Conc 28.5 g/dL (31.6-35.5); Mean Corpuscular Hemoglobin 28.7 pg (28.0-33.3); Mean Corpuscular Volume 100.9 fL (83.0-100.0); Mean Platelet Volume 12.2 fL (9.4-12.4); Platelet Count 236 K/mcL (140-400); Red Blood Count 3.41 M/mcL (3.82-4.97); Red Cell Distribution Width 18.6 % (11.5-14.5)
[2017-06-09 08:39] LABS: Alanine Aminotransferase 25 Units/L (0-55); Albumin 2.5 g/dL (3.5-5.0); Albumin/Globulin Ratio 0.6 (1.1-2.2); Alkaline Phosphatase 124 Units/L (38-126); Aspartate Amino Transferase 17 Units/L (5-34); BUN/Creatinine Ratio 22 (6-26); Bilirubin,Direct 1.5 mg/dL (0.0-0.5); Bilirubin,Indirect 0.6 mg/dL (0.0-1.2); Bilirubin,Total 2.1 mg/dL (0.2-1.2); Blood Urea Nitrogen 20 mg/dL (7-20); Calcium 9.9 mg/dL (8.6-10.8); Chloride 93 mEq/L (98-109); Globulin 3.9 g/dL (2.4-3.5); Glucose 84 mg/dL (70-99); Magnesium 1.8 mg/dL (1.6-2.6); Osmolality,Calculated 298 (280-300); Potassium 4.2 mEq/L (3.5-4.5); Sodium 143 mEq/L (136-145); Total Protein 6.4 g/dL (6.0-8.3); eGFR For African Americans > 60 (> 60); eGFR For Non-African Americans > 60 (> 60)
[2017-06-09 08:44] LABS: Carbon Dioxide 41 mEq/L (19-29)
[2017-06-09] MEDS: Pantoprazole 40 MG VIAL IVP SCH (09:16)
[2017-06-09] MEDS: Aspirin 81 MG TAB.CHEW PO SCH (09:16)
[2017-06-09] MEDS: Cholecalciferol (D-3) 1,000 UNIT TABLET PO SCH (09:16)
[2017-06-09] MEDS: Gabapentin 100 MG CAPSULE PO SCH ×3 (09:16→20:47)
--- NOTE | 2017-06-09 09:16 | Cardiology Progress Note ---
Date of Encounter: 06/09/17 Time of Encounter: 09:20 Assessment and Plan (1) Congestive heart failure Current Visit: Yes Status: Chronic Right ventricular systolic failure with normal LVEF by echo this admission. Multifactorial secondary to pulmonary HTN from COPD/morbid obesity. Limited therapies available for RV systolic failure. Consider referral to a dedicated pulmonary hypertension clinic on discharge. Cardiology will sign off, please call with any question. Qualifiers: Congestive heart failure type: systolic Congestive heart failure chronicity : chronic Qualified Code(s): I50.22 - Chronic systolic (congestive) heart failure (2) Cor pulmonale Current Visit: Yes Status: Acute Multifactorial: morbid obesity, SMITA, COPD, probable dCHF contributing to moderate severe pulmonary hypertension and RV failure. Patient's respiratory status has significantly improved. Continue judicious diuresis maintaining ~1 liter negative fluid balance daily while closely monitoring renal function. Continue current dosage of diuretic. (3) Secondary pulmonary hypertension Current Visit: No Status: Chronic Continue treating underlying causes (4) Morbid obesity with BMI of 50.0-59.9, adult Current Visit: Yes Status: Chronic Partial contributor of respiratory failure Discussion w patient/family: The assessment and plan as outlined above was discussed with the patient and/or family members who expressed understanding and agreement. All questions were answered. Thank you for involving us in the care of your patient. Please call with any questions. Subjective Principal diagnosis: Respiratory insufficiency Interval history: Patient resting comfortably. No distress. She denies undue dyspnea or dizziness. No chest discomfort currently. Objective Vital Signs, Last 4 Hours Temp Pulse Resp BP Pulse Ox 06/09/17 07:36 98.6 F 105 18 127/80 96 General: Conversant HEENT: Atraumatic Neck: No JVD Cardiac: Reg Rate and Rhythm Lungs: Other (decreased breath sounds bilaterally) Neuro: Alert and responsive Abdomen: Soft Skin: No rashes noted on visualized skin Musculoskeletal: No Chest Wall Tenderness Extremities: Other (2+ edema BL) Results 06/09/17 07:57 06/09/17 07:57 Lab Results 06/09/17 06/09/17 07:57 07:57 WBC 4.4 Hgb 9.8 L Hct 34.4 L Plt Count 236 Sodium 143 Potassium 4.2 Chloride 93 L Carbon Dioxide 41 H* BUN 20 Creatinine 0.92 Glucose 84 Calcium 9.9 Magnesium 1.8 Total Bilirubin 2.1 H AST 17 ALT 25 Alkaline Phosphatase 124 - VTE Documentation of Mechanical Device: Intermittent pneumatic compression device Consult Discharge Plan - Plan Referrals: Mi Warren, MATERIAL PREPARATION WORKER [Advanced Practice Nurse] - (computers are down call back later )
[2017-06-09] MEDS: Nystatin OINT 15 GM TUBE TP SCH ×4 (09:17→20:48)
[2017-06-09] MEDS: Nystatin POWDER 30 GM BOTTLE TP SCH ×2 (09:17→20:47)
[2017-06-09 09:35] LABS: Basophils # 0.1 K/mcL (0.0-0.2); Lymphocytes # 0.4 K/mcL (0.6-4.6); Monocytes # 0.4 K/mcL (0.0-1.3); Neutrophils # 3.5 K/mcL (1.6-8.9); Platelet Estimate Normal (Normal)
[2017-06-09 09:36] LABS: Hypochromasia Present (Not Present)
[2017-06-09] MEDS: Budesonide/Formoterol 160/4.5 MDI IH SCH ×2 (10:08→20:19)
--- NOTE | 2017-06-09 15:52 | Internal Med Progress Note ---
Date of Encounter: 06/09/17 Time of Encounter: 15:20 - Assessment and plan (1) Congestive heart failure Current Visit: Yes Status: Chronic Assessment and plan: Patient has preserved ejection fraction. She has evidence of cor pulmonale with flattening of the septum and pressure overload. This is causing diastolic CHF. Patient has been getting 80 mg of Lasix daily. We will continue at 40 mg twice a day. Continue Miller catheter. Strict input and output monitoring and daily weights. Patient is high risk due to risk of recurrent respiratory failure which may require intubation and mechanical ventilation. Risk of lethal arrhythmias. Qualifiers: Congestive heart failure type: diastolic Congestive heart failure chronicity: acute on chronic Qualified Code(s): I50.33 - Acute on chronic diastolic (congestive) heart failure (2) Chronic respiratory failure Current Visit: Yes Status: Chronic Assessment and plan: patient has chronic respiratory failure most likely secondary to 2 cor pulmonale , severe pulmonary HTN, obesity hypoventilation syndrome and SMITA. needs BIPAP prn and at bedtime and is on 02 at home at baseline Qualifiers: Respiratory failure complication: hypoxia and hypercapnia Qualified Code(s) : J96.11 - Chronic respiratory failure with hypoxia; J96.12 - Chronic respiratory failure with hypercapnia (3) Cor pulmonale Current Visit: Yes Status: Chronic Assessment and plan: Patient will require outpatient follow-up with pulmonary hypertension clinic and will eventually require a right heart catheterization. (4) BLANCA (acute kidney injury) Current Visit: Yes Status: Resolved Assessment and plan: Resolved (5) Shock Current Visit: Yes Status: Resolved Assessment and plan: Resolved (6) Hypothyroidism Current Visit: Yes Status: Chronic Qualifiers: Hypothyroidism type: acquired Qualified Code(s): E03.9 - Hypothyroidism, unspecified (7) Morbid obesity with BMI of 50.0-59.9, adult Current Visit: No Status: Chronic (8) SMITA treated with BiPAP Current Visit: Yes Status: Chronic Assessment and plan: will continue the bIPAP at night and when necessary. - Subjective Interval history: 46-year-old female with a history of obstructive sleep apnea, obesity hypoventilation syndrome, pulmonary hypertension, cor pulmonale, morbid obesity , chronic kidney stage III, type 2 diabetes mellitus who presented to the hospital due to fall on her way from the bathroom. She was found to have acute kidney injury at an outside facility and was transferred to [facility] for further management. Patient was admitted to the hospital with a diagnosis of acute kidney injury and elevated troponin. She was given intravenous fluids. Cardiology was consulted for elevated troponins. During stay in the hospital, she experienced worsening respiratory failure and required noninvasive positive pressure ventilation. Despite the same, the patient worsened and required transfer to the ICU and intubation with mechanical ventilation. In the ICU, the patient developed hypotension due to cardiogenic shock and required pressors. The patient was eventually able to be weaned off pressors with adequate hydration. She was also placed on heparin drip due to suspicion for pulmonary embolus. CT angiogram was performed after her renal function resolved. CT endocrine did not reveal PE. Lower extremity Dopplers revealed superficial vein thrombosis but did not reveal any DVT. Hence , heparin was discontinued. CT scan of the abdomen/pelvis revealed anasarca and hepatosplenomegaly. Once her cardiac shock resolved, she was diuresed aggressively with Lasix for her anasarca. She was eventually extubated and is currently on BiPAP during that time and sleep. She was transferred out of the ICU yesterday. Currently, patient reports that her breathing is better. She reports a cough with sputum production that is ritchie to brown in color. Denies any chest pain currently but states that she had pain in her chest on the left side of the chest last night that was 4/10 in intensity without any radiation which was dull in nature. Denies any nausea, vomiting. Reports regular bowel movements. Reports some abdominal pain that is all over her abdomen. - Constitutional Vitals: Temp Pulse Resp BP Pulse Ox 98.7 F 97 22 116/68 97 06/09/17 11:25 06/09/17 11:25 06/09/17 11:25 06/09/17 11:25 06/09/17 11:25 General appearance: Present: A&O X 3, morbidly obese Exam: Gen.: Lying in bed. Mild to moderate distress. Chest: Reduced breath sounds bilaterally. Bilateral basal conditions present. CVS: First and second heart sounds present. No murmurs, rubs or gallops. Abdomen: Soft, diffusely tender to palpation without rebound tenderness, guarding or rigidity; obese. Bowel sounds present. No hepatosplenomegaly. Internal Medicine: Result - Labs CBC & Chem 7: 06/09/17 07:57 06/09/17 07:57 Labs: Short CBC 06/09/17 Range/Units 07:57 WBC 4.4 (4.3-11.1) K/mcL Hgb 9.8 L (11.5-15.4) g/dL Hct 34.4 L (35.3-44.9) % Plt Count 236 (140-400) K/mcL Neutrophils # 3.5 (1.6-8.9) K/mcL BMP 06/09/17 07:57 Sodium 143 Potassium 4.2 Chloride 93 L Carbon Dioxide 41 H* BUN 20 Creatinine 0.92 Glucose 84 Calcium 9.9 Liver Function 06/09/17 Range/Units 07:57 Total Bilirubin 2.1 H (0.2-1.2) mg/dL Direct Bilirubin 1.5 H (0.0-0.5) mg/dL AST 17 (5-34) Units/L ALT 25 (0-55) Units/L Alkaline Phosphatase 124 (38-126) Units/L Albumin 2.5 L (3.5-5.0) g/dL - ABG Interpretation ABG results: ABG ABG pH 7.42 pH Units (7.32-7.45) 06/07/17 05:10 ABG pCO2 73 mmHg (35-45) H* 06/07/17 05:10 ABG pO2 71 mmHg (85-104) L 06/07/17 05:10 ABG O2 Saturation 94 % (95-98) L 06/07/17 05:10 PT/INR, D-dimer PT 12.5 Seconds (9.4-12.1) H 05/31/17 15:15 - VTE Documentation of Mechanical Device: Intermittent pneumatic compression device Consult Discharge Plan - Plan Referrals: Mi Warren, MESS ATTENDANT CREW [Advanced Practice Nurse] - (computers are down call back later )
[2017-06-09] MEDS ORDERED: Water for inj. (sterile) 10 ML IV ONE (16:30)
[2017-06-09] MEDS: Furosemide 40 MG/4 ML VIAL IVP SCH (16:56)
[2017-06-10] MEDS: Insulin LISPRO 300 UNITS/3 ML VIAL SQ SCH ×4 (01:32→12:24)
[2017-06-10] MEDS: *HR* HYDROmorphone (PF) 1 MG/ML SYRINGE IVP PRN ×2 (04:02→09:05)
[2017-06-10 06:30] LABS: BUN/Creatinine Ratio 21 (6-26); Blood Urea Nitrogen 19 mg/dL (7-20); Calcium 9.4 mg/dL (8.6-10.8); Chloride 94 mEq/L (98-109); Glucose 134 mg/dL (70-99); Osmolality,Calculated 298 (280-300); Potassium 4.3 mEq/L (3.5-4.5); Sodium 142 mEq/L (136-145); eGFR For African Americans > 60 (> 60); eGFR For Non-African Americans > 60 (> 60)
[2017-06-10 06:32] LABS: Carbon Dioxide 42 mEq/L (19-29)
[2017-06-10 06:59] LABS: INR 1.3; Prothrombin Time 14.5 Seconds (9.4-12.1)
[2017-06-10] MEDS: *HR* Heparin 5,000 UNIT/ML VIAL SQ SCH ×3 (07:41→20:59)
[2017-06-10] MEDS: Budesonide/Formoterol 160/4.5 MDI IH SCH ×2 (07:54→20:22)
[2017-06-10] MEDS: Aspirin 81 MG TAB.CHEW PO SCH (09:09)
[2017-06-10] MEDS: Gabapentin 100 MG CAPSULE PO SCH ×3 (09:09→20:59)
[2017-06-10] MEDS: Cholecalciferol (D-3) 1,000 UNIT TABLET PO SCH (09:09)
[2017-06-10] MEDS: Furosemide 40 MG/4 ML VIAL IVP SCH ×2 (09:09→16:53)
[2017-06-10] MEDS: Nystatin OINT 15 GM TUBE TP SCH ×5 (09:20→20:59)
[2017-06-10] MEDS: Nystatin POWDER 30 GM BOTTLE TP SCH ×2 (09:21→21:00)
[2017-06-10] MEDS: Acetaminophen 325 MG TABLET PO PRN (12:40)
[2017-06-10] MEDS: traMADol 50 MG TABLET PO PRN (15:10)
--- NOTE | 2017-06-10 16:34 | Internal Med Progress Note ---
Date of Encounter: 06/10/17 Time of Encounter: 16:15 - Assessment and plan (1) Congestive heart failure Current Visit: Yes Status: Chronic Assessment and plan: Patient has preserved ejection fraction. She has evidence of cor pulmonale with flattening of the septum and pressure overload. This is causing diastolic CHF. We will continue at 40 mg twice a day. Aggressive diuresis is limited by her borderline low blood pressure. Continue Miller catheter. Strict input and output monitoring and daily weights. Patient is high risk due to risk of recurrent respiratory failure which may require intubation and mechanical ventilation. Risk of lethal arrhythmias. Qualifiers: Congestive heart failure type: diastolic Congestive heart failure chronicity: acute on chronic Qualified Code(s): I50.33 - Acute on chronic diastolic (congestive) heart failure (2) Chronic respiratory failure Current Visit: Yes Status: Chronic Assessment and plan: patient has chronic respiratory failure most likely secondary to cor pulmonale, severe pulmonary HTN, obesity hypoventilation syndrome and SMITA. needs BIPAP prn and at bedtime and is on 02 at home at baseline Qualifiers: Respiratory failure complication: hypoxia and hypercapnia Qualified Code(s) : J96.11 - Chronic respiratory failure with hypoxia; J96.12 - Chronic respiratory failure with hypercapnia (3) Cor pulmonale Current Visit: Yes Status: Chronic Assessment and plan: Patient will require outpatient follow-up with pulmonary hypertension clinic and will eventually require a right heart catheterization. Will require follow-up with sleep physician for adequate management of her sleep apnea and obesity hypoventilation syndrome. (4) BLANCA (acute kidney injury) Current Visit: Yes Status: Resolved Assessment and plan: Resolved (5) Hypothyroidism Current Visit: Yes Status: Chronic Qualifiers: Hypothyroidism type: acquired Qualified Code(s): E03.9 - Hypothyroidism, unspecified (6) Morbid obesity with BMI of 50.0-59.9, adult Current Visit: No Status: Chronic (7) SMITA treated with BiPAP Current Visit: Yes Status: Chronic Assessment and plan: will continue the bIPAP at night and when necessary. - Subjective Interval history: 46-year-old female with a history of obstructive sleep apnea, obesity hypoventilation syndrome, pulmonary hypertension, cor pulmonale, morbid obesity , chronic kidney stage III, type 2 diabetes mellitus who presented to the hospital due to fall on her way from the bathroom. She was found to have acute kidney injury at an outside facility and was transferred to [facility] for further management. Patient was admitted to the hospital with a diagnosis of acute kidney injury and elevated troponin. She was given intravenous fluids. Cardiology was consulted for elevated troponins. During stay in the hospital, she experienced worsening respiratory failure and required noninvasive positive pressure ventilation. Despite the same, the patient worsened and required transfer to the ICU and intubation with mechanical ventilation. In the ICU, the patient developed hypotension due to cardiogenic shock and required pressors. The patient was eventually able to be weaned off pressors with adequate hydration. She was also placed on heparin drip due to suspicion for pulmonary embolus. CT angiogram was performed after her renal function resolved. CT endocrine did not reveal PE. Lower extremity Dopplers revealed superficial vein thrombosis but did not reveal any DVT. Hence , heparin was discontinued. CT scan of the abdomen/pelvis revealed anasarca and hepatosplenomegaly. Once her cardiac shock resolved, she was diuresed aggressively with Lasix for her anasarca. She was eventually extubated and is currently on BiPAP during sleep. She was transferred out of the ICU 2 days ago. Currently, patient reports that her breathing is better. She continues to report cough with sputum production. She also reports swelling in her legs. - Constitutional Vitals: Temp Pulse Resp BP Pulse Ox 98.0 F 95 18 102/65 97 06/10/17 15:20 06/10/17 15:20 06/10/17 15:20 06/10/17 15:20 06/10/17 15:20 General appearance: Present: A&O X 3, morbidly obese Exam: Gen.: Lying in bed. Mild distress. Chest: Clear to auscultation bilaterally. No adventitious sounds present. CVS: First and second heart sounds present. No murmurs, rubs or gallops. Abdomen: Soft, nontender, obese. Bowel sounds present. No hepatosplenomegaly. Skin: No decubitus ulcers appreciated. Internal Medicine: Result - Labs CBC & Chem 7: 06/09/17 07:57 06/10/17 05:42 Labs: BMP 06/10/17 05:42 Sodium 142 Potassium 4.3 Chloride 94 L Carbon Dioxide 42 H* BUN 19 Creatinine 0.89 Glucose 134 H Calcium 9.4 - ABG Interpretation ABG results: ABG ABG pH 7.42 pH Units (7.32-7.45) 06/07/17 05:10 ABG pCO2 73 mmHg (35-45) H* 06/07/17 05:10 ABG pO2 71 mmHg (85-104) L 06/07/17 05:10 ABG O2 Saturation 94 % (95-98) L 06/07/17 05:10 PT/INR, D-dimer PT 14.5 Seconds (9.4-12.1) H 06/10/17 05:42 - VTE Documentation of Mechanical Device: Intermittent pneumatic compression device Consult Discharge Plan - Plan Referrals: Mi Warren, ASPHALT DAUBER [Advanced Practice Nurse] - (computers are down call back later )
[2017-06-10] MEDS: Sennosides/Docusate Sodium TABLET PO SCH (20:59)
[2017-06-11] MEDS ORDERED: *HR* Morphine 2 MG/ML SYRINGE IVP ONE (01:36)
[2017-06-11] MEDS: traMADol 50 MG TABLET PO PRN ×2 (05:18→21:24)
[2017-06-11] MEDS: *HR* Heparin 5,000 UNIT/ML VIAL SQ SCH ×3 (05:18→21:15)
[2017-06-11] MEDS: Insulin LISPRO 300 UNITS/3 ML VIAL SQ SCH ×4 (07:34→21:15)
[2017-06-11] MEDS: Budesonide/Formoterol 160/4.5 MDI IH SCH ×2 (08:17→19:53)
[2017-06-11] MEDS: Acetaminophen 325 MG TABLET PO PRN (09:13)
[2017-06-11] MEDS: Aspirin 81 MG TAB.CHEW PO SCH (09:14)
[2017-06-11] MEDS: Furosemide 40 MG/4 ML VIAL IVP SCH (09:14)
[2017-06-11] MEDS: Gabapentin 100 MG CAPSULE PO SCH ×3 (09:14→21:14)
[2017-06-11] MEDS: Cholecalciferol (D-3) 1,000 UNIT TABLET PO SCH (09:14)
[2017-06-11] MEDS: Sennosides/Docusate Sodium TABLET PO SCH (09:14)
[2017-06-11] MEDS: Nystatin POWDER 30 GM BOTTLE TP SCH ×2 (09:16→21:17)
[2017-06-11] MEDS: Nystatin OINT 15 GM TUBE TP SCH ×4 (09:16→21:17)
[2017-06-11] MEDS: Ipratropium/Albuterol Neb 3 ML IH SCH ×3 (11:34→19:53)
[2017-06-11] MEDS: GuaiFENesin Liq 200 MG/10 ML UDC PO SCH ×3 (12:54→23:10)
--- NOTE | 2017-06-11 12:57 | Internal Med Progress Note ---
Date of Encounter: 06/11/17 Time of Encounter: 10:00 - Assessment and plan (1) Congestive heart failure Current Visit: Yes Status: Chronic Assessment and plan: Patient has preserved ejection fraction. She has evidence of cor pulmonale with flattening of the septum and pressure overload. This is causing diastolic CHF. Patient will be started on a Lasix drip due to her borderline low blood pressure and due to need for fluid removal. If the patient has an adequate response to 5 mg per hour of Lasix, will increase to 10 mg per hour. Will monitor BMP every 8 hours. Continue Miller catheter. Strict input and output monitoring and daily weights. Patient is high risk due to risk of recurrent respiratory failure which may require intubation and mechanical ventilation. Risk of lethal arrhythmias and the need for close monitoring of folliculitis due to being on Lasix drip.. Qualifiers: Congestive heart failure type: diastolic Congestive heart failure chronicity: acute on chronic Qualified Code(s): I50.33 - Acute on chronic diastolic (congestive) heart failure (2) Chronic respiratory failure Current Visit: Yes Status: Chronic Assessment and plan: patient has chronic respiratory failure most likely secondary to cor pulmonale, severe pulmonary HTN, obesity hypoventilation syndrome and SMITA. Patient's home BiPAP settings of . Will change current settings to reflect the same. We will reassess the need for oxygen supplementation and the amount of oxygen supplementation required after the patient begins diuresing with Lasix drip. Qualifiers: Respiratory failure complication: hypoxia and hypercapnia Qualified Code(s) : J96.11 - Chronic respiratory failure with hypoxia; J96.12 - Chronic respiratory failure with hypercapnia (3) Cor pulmonale Current Visit: Yes Status: Chronic Assessment and plan: Patient will require outpatient follow-up with pulmonary hypertension clinic and will eventually require a right heart catheterization. Will require follow-up with sleep physician for adequate management of her sleep apnea and obesity hypoventilation syndrome. (4) BLANCA (acute kidney injury) Current Visit: Yes Status: Resolved Assessment and plan: Resolved (5) Hypothyroidism Current Visit: Yes Status: Chronic Assessment and plan: Continue home Synthroid dose. Qualifiers: Hypothyroidism type: acquired Qualified Code(s): E03.9 - Hypothyroidism, unspecified (6) Morbid obesity with BMI of 50.0-59.9, adult Current Visit: No Status: Chronic (7) SMITA treated with BiPAP Current Visit: Yes Status: Chronic Assessment and plan: will continue the bIPAP at night and when necessary. Change BiPAP settings to 18/14 as her home settings are. - Subjective Interval history: 46-year-old female with a history of obstructive sleep apnea, obesity hypoventilation syndrome, pulmonary hypertension, cor pulmonale, morbid obesity , chronic kidney stage III, type 2 diabetes mellitus who presented to the hospital due to fall on her way from the bathroom. She was found to have acute kidney injury at an outside facility and was transferred to [facility] for further management. Patient was admitted to the hospital with a diagnosis of acute kidney injury and elevated troponin. She was given intravenous fluids. Cardiology was consulted for elevated troponins. During stay in the hospital, she experienced worsening respiratory failure and required noninvasive positive pressure ventilation. Despite the same, the patient worsened and required transfer to the ICU and intubation with mechanical ventilation. In the ICU, the patient developed hypotension due to cardiogenic shock and required pressors. The patient was eventually able to be weaned off pressors with adequate hydration. She was also placed on heparin drip due to suspicion for pulmonary embolus. CT angiogram was performed after her renal function resolved. CT endocrine did not reveal PE. Lower extremity Dopplers revealed superficial vein thrombosis but did not reveal any DVT. Hence , heparin was discontinued. CT scan of the abdomen/pelvis revealed anasarca and hepatosplenomegaly. Once her cardiac shock resolved, she was diuresed aggressively with Lasix for her anasarca. She was eventually extubated and is currently on BiPAP during sleep. She was transferred out of the ICU. Today, the patient continues to report shortness of breath, cough with sputum production and some wheezing. She also reports swelling in her legs. She reports generalized pains. She states that she has a BiPAP at home but is not aware of the settings. She reports having regular bowel movements. - Constitutional Vitals: Temp Pulse Resp BP Pulse Ox 97.9 F 93 17 137/88 96 06/11/17 11:33 06/11/17 11:33 06/11/17 11:34 06/11/17 11:33 06/11/17 11:34 General appearance: Present: A&O X 3, morbidly obese Exam: Gen.: Lying in bed. Mild distress. Chest: Reduced breath sounds bilaterally CVS: First and second heart sounds present. No murmurs, rubs or gallops. Bilateral lower extremity 3+ pitting pedal edema. Pitting edema over bilateral abdominal flanks. Abdomen: Soft, nontender, obese. Bowel sounds present. Internal Medicine: Result - Labs CBC & Chem 7: 06/09/17 07:57 06/10/17 05:42 - ABG Interpretation ABG results: ABG ABG pH 7.42 pH Units (7.32-7.45) 06/07/17 05:10 ABG pCO2 73 mmHg (35-45) H* 06/07/17 05:10 ABG pO2 71 mmHg (85-104) L 06/07/17 05:10 ABG O2 Saturation 94 % (95-98) L 06/07/17 05:10 PT/INR, D-dimer PT 14.5 Seconds (9.4-12.1) H 06/10/17 05:42 - VTE Documentation of Mechanical Device: Intermittent pneumatic compression device Consult Discharge Plan - Plan Referrals: Mi Warren, FIELD SALES AGENT [Advanced Practice Nurse] - (computers are down call back later )
[2017-06-11] MEDS: Furosemide 240 MG in D5% in Water 96 ML IVC SCH (15:16)
[2017-06-11] MEDS ORDERED: *HR* Dextrose 50 % in Water (Syg) 50 ML SYRINGE IVP PRN (15:20)
[2017-06-11] MEDS ORDERED: Sennosides/Docusate Sodium TABLET PO PRN (15:20)
[2017-06-11] MEDS ORDERED: Dextrose Gel 15 GM PO PRN ×2 (15:20)
[2017-06-11] MEDS ORDERED: D5% in Water 1,000 ML IVC PRN (15:20)
[2017-06-11 15:31] LABS: BUN/Creatinine Ratio 19 (6-26); Blood Urea Nitrogen 19 mg/dL (7-20); Calcium 9.2 mg/dL (8.6-10.8); Chloride 91 mEq/L (98-109); Glucose 100 mg/dL (70-99); Osmolality,Calculated 296 (280-300); Potassium 4.3 mEq/L (3.5-4.5); Sodium 142 mEq/L (136-145); eGFR For African Americans > 60 (> 60); eGFR For Non-African Americans 60 (> 60)
[2017-06-11 15:36] LABS: Carbon Dioxide 48 mEq/L (19-29)
[2017-06-11] MEDS ORDERED: Water for inj. (sterile) 10 ML IV ONE (16:19)
[2017-06-11] MEDS: Bisacodyl 10 MG RECTAL SUPPOSITORY RC PRN (21:25)
[2017-06-11] MEDS: *HR* Morphine 2 MG/ML SYRINGE IVP PRN (23:10)
[2017-06-12] MEDS: Ipratropium/Albuterol Neb 3 ML IH SCH ×7 (00:07→23:51)
[2017-06-12] MEDS ORDERED: *HR* Morphine 2 MG/ML SYRINGE IVP ONE (00:42)
--- NOTE | 2017-06-12 00:53 | Event Note ---
Date of Encounter: 06/12/17 Time of Encounter: 00:49 Called to see patient for persistent abdominal pain, worsening throughout the day. She has a ventral hernia and she is complaining of severe pain above the umbilicus and throughout the hernia. Abdomen is distended, but hernia is not tense and appears soft at times. I do not appreciate bowel sounds. No rebound. NO guarding. + pain upon palpation of upper mid-abdomen above umbilicus. I ordered another dose of Morphine now, labs, and STAT CT abdomen/ pelvis to evaluate abdominal pathology.
[2017-06-12 00:58] LABS: Basophils % 0.5 %; Eosinophils % 0.7 %; Immature Granulocytes % 0.3 % (0-4)
[2017-06-12 01:00] LABS: Hematocrit 35.5 % (35.3-44.9); Lymphocytes # 0.9 K/mcL (0.6-4.6); Lymphocytes % 14.7 %; Mean Corpuscular HGB Conc 28.2 g/dL (31.6-35.5); Mean Corpuscular Hemoglobin 28.5 pg (28.0-33.3); Mean Corpuscular Volume 101.1 fL (83.0-100.0); Mean Platelet Volume 12.3 fL (9.4-12.4); Monocytes # 0.4 K/mcL (0.0-1.3); Monocytes % 6.8 %; Neutrophils # 4.7 K/mcL (1.6-8.9); Platelet Count 284 K/mcL (140-400); Red Blood Count 3.51 M/mcL (3.82-4.97); Red Cell Distribution Width 18.3 % (11.5-14.5)
[2017-06-12 01:12] LABS: Alanine Aminotransferase 23 Units/L (0-55); Albumin/Globulin Ratio 0.8 (1.1-2.2); Alkaline Phosphatase 147 Units/L (38-126); Aspartate Amino Transferase 25 Units/L (5-34); BUN/Creatinine Ratio 20 (6-26); Bilirubin,Direct 1.1 mg/dL (0.0-0.5); Bilirubin,Indirect 0.7 mg/dL (0.0-1.2); Bilirubin,Total 1.8 mg/dL (0.2-1.2); Blood Urea Nitrogen 20 mg/dL (7-20); Calcium 9.4 mg/dL (8.6-10.8); Chloride 89 mEq/L (98-109); Globulin 3.8 g/dL (2.4-3.5); Glucose 135 mg/dL (70-99); Magnesium 1.6 mg/dL (1.6-2.6); Osmolality,Calculated 295 (280-300); Potassium 4.2 mEq/L (3.5-4.5); Sodium 140 mEq/L (136-145); Total Protein 6.8 g/dL (6.0-8.3); eGFR For African Americans > 60 (> 60); eGFR For Non-African Americans 60 (> 60)
[2017-06-12 01:15] LABS: Carbon Dioxide 44 mEq/L (19-29)
[2017-06-12 01:16] LABS: INR 1.2; Prothrombin Time 13.2 Seconds (9.4-12.1)
[2017-06-12 01:19] LABS: Activated Partial Thrombo Time 36.4 Seconds (26.0-36.0)
[2017-06-12 01:36] LABS: Hypochromasia Present (Not Present); Microcytosis Present (Not Present); Platelet Estimate Normal (Normal)
[2017-06-12] MEDS: *HR* Morphine 2 MG/ML SYRINGE IVP PRN (04:24)
[2017-06-12] MEDS: *HR* Heparin 5,000 UNIT/ML VIAL SQ SCH ×3 (05:32→20:27)
[2017-06-12] MEDS: GuaiFENesin Liq 200 MG/10 ML UDC PO SCH ×4 (05:32→23:44)
[2017-06-12] MEDS: Ondansetron 4 MG/2 ML VIAL IVP PRN ×3 (05:33→20:29)
[2017-06-12 07:35] LABS: BUN/Creatinine Ratio 20 (6-26); Blood Urea Nitrogen 20 mg/dL (7-20); Calcium 9.4 mg/dL (8.6-10.8); Chloride 90 mEq/L (98-109); Glucose 163 mg/dL (70-99); Osmolality,Calculated 300 (280-300); Potassium 4.4 mEq/L (3.5-4.5); Sodium 142 mEq/L (136-145); eGFR For African Americans > 60 (> 60); eGFR For Non-African Americans > 60 (> 60)
[2017-06-12 08:07] LABS: Carbon Dioxide 47 mEq/L (19-29)
[2017-06-12] MEDS ORDERED: traMADol 50 MG TABLET PO ONE (08:16)
[2017-06-12] MEDS: Insulin LISPRO 300 UNITS/3 ML VIAL SQ SCH ×4 (08:47→20:28)
[2017-06-12] MEDS: Cholecalciferol (D-3) 1,000 UNIT TABLET PO SCH (08:47)
[2017-06-12] MEDS: Aspirin 81 MG TAB.CHEW PO SCH (08:48)
[2017-06-12] MEDS: Gabapentin 100 MG CAPSULE PO SCH ×3 (08:48→20:27)
[2017-06-12] MEDS: Nystatin POWDER 30 GM BOTTLE TP SCH ×2 (08:48→20:28)
[2017-06-12] MEDS: Nystatin OINT 15 GM TUBE TP SCH ×4 (08:49→20:28)
[2017-06-12] MEDS: Budesonide/Formoterol 160/4.5 MDI IH SCH ×2 (08:50→21:17)
[2017-06-12] MEDS: traMADol 50 MG TABLET PO SCH ×4 (12:28→23:44)
--- NOTE | 2017-06-12 12:45 | Internal Med Progress Note ---
Date of Encounter: 06/12/17 Time of Encounter: 11:30 - Assessment and plan (1) Congestive heart failure Current Visit: Yes Status: Chronic Assessment and plan: Patient has preserved ejection fraction. She has evidence of cor pulmonale with flattening of the septum and pressure overload. This is causing diastolic CHF. Continue Lasix drip at 5 mg per hour as the patient has good urine output. Continue checking BMP every 8 hours. Continue Miller catheter. Strict input and output monitoring and daily weights. Patient is high risk due to risk of recurrent respiratory failure which may require intubation and mechanical ventilation. Risk of lethal arrhythmias and the need for close monitoring of electrolyte abnormalities due to being on Lasix drip.. Qualifiers: Congestive heart failure type: diastolic Congestive heart failure chronicity: acute on chronic Qualified Code(s): I50.33 - Acute on chronic diastolic (congestive) heart failure (2) Chronic respiratory failure Current Visit: Yes Status: Chronic Assessment and plan: Continue BiPAP at 18/14. Oxygen supplementation when the patient is off BiPAP. Reassess need for oxygen after adequate diuresis. Qualifiers: Respiratory failure complication: hypoxia and hypercapnia Qualified Code(s) : J96.11 - Chronic respiratory failure with hypoxia; J96.12 - Chronic respiratory failure with hypercapnia (3) Cor pulmonale Current Visit: Yes Status: Chronic Assessment and plan: Patient will require outpatient follow-up with pulmonary hypertension clinic and will eventually require a right heart catheterization. Will require follow-up with sleep physician for adequate management of her sleep apnea and obesity hypoventilation syndrome. (4) BLANCA (acute kidney injury) Current Visit: Yes Status: Resolved Assessment and plan: Resolved (5) Hypothyroidism Current Visit: Yes Status: Chronic Assessment and plan: Continue home Synthroid dose. Qualifiers: Hypothyroidism type: acquired Qualified Code(s): E03.9 - Hypothyroidism, unspecified (6) Morbid obesity with BMI of 50.0-59.9, adult Current Visit: No Status: Chronic (7) SMITA treated with BiPAP Current Visit: Yes Status: Chronic - Subjective Interval history: 46-year-old female with a history of obstructive sleep apnea, obesity hypoventilation syndrome, pulmonary hypertension, cor pulmonale, morbid obesity , chronic kidney stage III, type 2 diabetes mellitus who presented to the hospital due to fall on her way from the bathroom. She was found to have acute kidney injury at an outside facility and was transferred to [facility] for further management. Patient was admitted to the hospital with a diagnosis of acute kidney injury and elevated troponin. She was given intravenous fluids. Cardiology was consulted for elevated troponins. During stay in the hospital, she experienced worsening respiratory failure and required noninvasive positive pressure ventilation. Despite the same, the patient worsened and required transfer to the ICU and intubation with mechanical ventilation. In the ICU, the patient developed hypotension due to cardiogenic shock and required pressors. The patient was eventually able to be weaned off pressors with adequate hydration. She was also placed on heparin drip due to suspicion for pulmonary embolus. CT angiogram was performed after her renal function resolved. CT endocrine did not reveal PE. Lower extremity Dopplers revealed superficial vein thrombosis but did not reveal any DVT. Hence , heparin was discontinued. CT scan of the abdomen/pelvis revealed anasarca and hepatosplenomegaly. Once her cardiac shock resolved, she was diuresed aggressively with Lasix for her anasarca. She was eventually extubated and is currently on BiPAP during sleep. She was transferred out of the ICU. Overnight, patient was complaining of recurrent abdominal pain. Hence, she had CT scan of the abdomen stat. It did not reveal any acute pathology. Patient complaining of mild pain since generalized all over her body. Denies any nausea or vomiting. - Constitutional Vitals: Temp Pulse Resp BP Pulse Ox 98.5 F 85 18 142/98 96 06/12/17 07:20 06/12/17 07:20 06/12/17 07:20 06/12/17 07:20 06/12/17 07:20 General appearance: Present: A&O X 3, morbidly obese Exam: Gen.: Lying in bed. No acute distress. Chest: Clear to auscultation bilaterally. No adventitious sounds present. CVS: First and second heart sounds present. No murmurs, rubs or gallops. 2+ bilateral pitting pedal edema Abdomen: Soft, nontender, obese. Bowel sounds present. Abdominal wall edema present. Internal Medicine: Result - Labs CBC & Chem 7: 06/11/17 23:56 06/12/17 06:43 Labs: Short CBC 06/11/17 Range/Units 23:56 WBC 6.1 (4.3-11.1) K/mcL Hgb 10.0 L (11.5-15.4) g/dL Hct 35.5 (35.3-44.9) % Plt Count 284 (140-400) K/mcL Neutrophils # 4.7 (1.6-8.9) K/mcL BMP 06/11/17 06/11/17 06/12/17 15:08 23:56 06:43 Sodium 142 140 142 Potassium 4.3 4.2 4.4 Chloride 91 L 89 L 90 L Carbon Dioxide 48 H* 44 H* 47 H* BUN 19 20 20 Creatinine 1.01 1.01 0.98 Glucose 100 H 135 H 163 H Calcium 9.2 9.4 9.4 Liver Function 06/11/17 Range/Units 23:56 Total Bilirubin 1.8 H (0.2-1.2) mg/dL Direct Bilirubin 1.1 H (0.0-0.5) mg/dL AST 25 (5-34) Units/L ALT 23 (0-55) Units/L Alkaline Phosphatase 147 H (38-126) Units/L Albumin 3.0 L (3.5-5.0) g/dL - ABG Interpretation ABG results: ABG ABG pH 7.42 pH Units (7.32-7.45) 06/07/17 05:10 ABG pCO2 73 mmHg (35-45) H* 06/07/17 05:10 ABG pO2 71 mmHg (85-104) L 06/07/17 05:10 ABG O2 Saturation 94 % (95-98) L 06/07/17 05:10 PT/INR, D-dimer PT 13.2 Seconds (9.4-12.1) H 06/12/17 01:02 - Impressions Impressions Chest X-Ray 06/11/17 08:09 IMPRESSION: 1. Interval extubation with mild improved bilateral medial lower lobe opacities and interstitial edema. 2. No new or progressive consolidative changes. D/ / 06/11/2017 15:25:34 Kojo Reynoso MD / yuki Interpreting Provider: Kojo Reynoso MD Abdomen/Pelvis CT 06/12/17 00:46 IMPRESSION: 1. Mild bibasilar atelectasis versus pneumonia. 2. Cholelithiasis. 3. Cirrhosis with mild ascites. D/ / Tomas Spears MD / Tomas Spears MD Interpreting Provider: Tomas Spears MD - VTE Documentation of Mechanical Device: Intermittent pneumatic compression device Consult Discharge Plan - Plan Referrals: Mi Warren, OUTDOOR ADVENTURE INSTRUCTOR [Advanced Practice Nurse] - (computers are down call back later )
[2017-06-12 15:20] LABS: BUN/Creatinine Ratio 19 (6-26); Blood Urea Nitrogen 19 mg/dL (7-20); Calcium 9.4 mg/dL (8.6-10.8); Chloride 90 mEq/L (98-109); Glucose 206 mg/dL (70-99); Osmolality,Calculated 298 (280-300); Potassium 4.8 mEq/L (3.5-4.5); Sodium 140 mEq/L (136-145); eGFR For African Americans > 60 (> 60); eGFR For Non-African Americans > 60 (> 60)
[2017-06-12 15:24] LABS: Carbon Dioxide 43 mEq/L (19-29)
[2017-06-12 23:32] LABS: BUN/Creatinine Ratio 20 (6-26); Blood Urea Nitrogen 19 mg/dL (7-20); Calcium 9.4 mg/dL (8.6-10.8); Chloride 88 mEq/L (98-109); Glucose 150 mg/dL (70-99); Osmolality,Calculated 291 (280-300); Potassium 4.1 mEq/L (3.5-4.5); Sodium 138 mEq/L (136-145); eGFR For African Americans > 60 (> 60); eGFR For Non-African Americans > 60 (> 60)
[2017-06-12 23:36] LABS: Carbon Dioxide 45 mEq/L (19-29)
[2017-06-13] MEDS: Ondansetron 4 MG/2 ML VIAL IVP PRN ×4 (02:44→22:25)
[2017-06-13] MEDS: Ipratropium/Albuterol Neb 3 ML IH SCH ×5 (04:07→20:01)
[2017-06-13] MEDS: GuaiFENesin Liq 200 MG/10 ML UDC PO SCH ×4 (05:02→22:44)
[2017-06-13] MEDS: *HR* Heparin 5,000 UNIT/ML VIAL SQ SCH ×3 (05:03→21:05)
[2017-06-13] MEDS: traMADol 50 MG TABLET PO SCH ×5 (05:03→21:08)
[2017-06-13] MEDS: Budesonide/Formoterol 160/4.5 MDI IH SCH ×2 (07:33→20:01)
[2017-06-13] MEDS: Furosemide 240 MG in D5% in Water 96 ML IVC SCH (09:19)
[2017-06-13] MEDS: Gabapentin 100 MG CAPSULE PO SCH ×3 (09:21→21:05)
[2017-06-13] MEDS: Insulin LISPRO 300 UNITS/3 ML VIAL SQ SCH ×4 (09:21→21:06)
[2017-06-13] MEDS: Aspirin 81 MG TAB.CHEW PO SCH (09:21)
[2017-06-13] MEDS: Nystatin OINT 15 GM TUBE TP SCH ×4 (09:21→21:06)
[2017-06-13] MEDS: Nystatin POWDER 30 GM BOTTLE TP SCH ×2 (09:21→21:05)
[2017-06-13] MEDS: Cholecalciferol (D-3) 1,000 UNIT TABLET PO SCH (09:21)
--- NOTE | 2017-06-13 14:22 | Internal Med Progress Note ---
Date of Encounter: 06/13/17 Time of Encounter: 13:00 - Assessment and plan (1) Congestive heart failure Current Visit: Yes Status: Chronic Assessment and plan: Patient has preserved ejection fraction. She has evidence of cor pulmonale with flattening of the septum and pressure overload. This is causing diastolic CHF. Continue Lasix drip at 5 mg per hour as the patient has good urine output. Continue checking BMP every 8 hours. Continue Miller catheter. Strict input and output monitoring and daily weights. Patient has been net negative 5 L in the last 48 hours. Continue to monitor input and output and daily weights. Patient is high risk due to risk of recurrent respiratory failure which may require intubation and mechanical ventilation. Risk of lethal arrhythmias and the need for close monitoring of electrolyte abnormalities due to being on Lasix drip.. Qualifiers: Congestive heart failure type: diastolic Congestive heart failure chronicity: acute on chronic Qualified Code(s): I50.33 - Acute on chronic diastolic (congestive) heart failure (2) Chronic respiratory failure Current Visit: Yes Status: Chronic Assessment and plan: Continue BiPAP at 18/14. Oxygen supplementation when the patient is off BiPAP. Reassess need for oxygen after adequate diuresis at the time of discharge. Qualifiers: Respiratory failure complication: hypoxia and hypercapnia Qualified Code(s) : J96.11 - Chronic respiratory failure with hypoxia; J96.12 - Chronic respiratory failure with hypercapnia (3) Cor pulmonale Current Visit: Yes Status: Chronic Assessment and plan: Patient will require outpatient follow-up with pulmonary hypertension clinic and will eventually require a right heart catheterization. Will require follow-up with sleep physician for adequate management of her sleep apnea and obesity hypoventilation syndrome. (4) Hypothyroidism Current Visit: Yes Status: Chronic Assessment and plan: Continue home Synthroid dose. Qualifiers: Hypothyroidism type: acquired Qualified Code(s): E03.9 - Hypothyroidism, unspecified (5) SMITA treated with BiPAP Current Visit: Yes Status: Chronic Assessment and plan: will continue the bIPAP at night and when the patient is sleeping at the settings of 18/14 and when necessary. (6) Morbid obesity with BMI of 50.0-59.9, adult Current Visit: No Status: Chronic - Subjective Interval history: 46-year-old female with a history of obstructive sleep apnea, obesity hypoventilation syndrome, pulmonary hypertension, cor pulmonale, morbid obesity , chronic kidney stage III, type 2 diabetes mellitus who presented to the hospital due to fall on her way from the bathroom. She was found to have acute kidney injury at an outside facility and was transferred to [facility] for further management. Patient was admitted to the hospital with a diagnosis of acute kidney injury and elevated troponin. She was given intravenous fluids. Cardiology was consulted for elevated troponins. During stay in the hospital, she experienced worsening respiratory failure and required noninvasive positive pressure ventilation. Despite the same, the patient worsened and required transfer to the ICU and intubation with mechanical ventilation. In the ICU, the patient developed hypotension due to cardiogenic shock and required pressors. The patient was eventually able to be weaned off pressors with adequate hydration. She was also placed on heparin drip due to suspicion for pulmonary embolus. CT angiogram was performed after her renal function resolved. CT endocrine did not reveal PE. Lower extremity Dopplers revealed superficial vein thrombosis but did not reveal any DVT. Hence , heparin was discontinued. CT scan of the abdomen/pelvis revealed anasarca and hepatosplenomegaly. Once her cardiac shock resolved, she was diuresed aggressively with Lasix for her anasarca. She was eventually extubated and is currently on BiPAP during sleep. She was transferred out of the ICU. Patient continues to report abdominal pain that is constant without any relation to food or activity. No aggravating or relieving factors. She points it to her entire abdomen. Denies any nausea or vomiting. Does report reduced appetite. - Constitutional Vitals: Temp Pulse Resp BP Pulse Ox 98 F 116 18 94/60 96 06/13/17 07:45 06/13/17 07:45 06/13/17 07:45 06/13/17 07:45 06/13/17 07:45 General appearance: Present: A&O X 3, morbidly obese Exam: Gen.: Sitting in a chair consuming her lunch. Mild distress. Chest: Clear to auscultation bilaterally. Reduced breath sounds bilaterally. CVS: First and second heart sounds present. No murmurs, rubs or gallops. Abdomen: Soft, nontender, obese. Bowel sounds present. No hepatosplenomegaly. Internal Medicine: Result - Labs CBC & Chem 7: 06/11/17 23:56 06/12/17 23:08 Labs: BMP 06/12/17 06/12/17 14:58 23:08 Sodium 140 138 Potassium 4.8 H 4.1 Chloride 90 L 88 L Carbon Dioxide 43 H* 45 H* BUN 19 19 Creatinine 0.98 0.93 Glucose 206 H 150 H Calcium 9.4 9.4 - ABG Interpretation ABG results: ABG ABG pH 7.42 pH Units (7.32-7.45) 06/07/17 05:10 ABG pCO2 73 mmHg (35-45) H* 06/07/17 05:10 ABG pO2 71 mmHg (85-104) L 06/07/17 05:10 ABG O2 Saturation 94 % (95-98) L 06/07/17 05:10 PT/INR, D-dimer PT 13.2 Seconds (9.4-12.1) H 06/12/17 01:02 - VTE Documentation of Mechanical Device: Intermittent pneumatic compression device Consult Discharge Plan - Plan Referrals: Mi Warren, MANAGER INTERNAL [Advanced Practice Nurse] - (computers are down call back later )
[2017-06-13 15:41] LABS: BUN/Creatinine Ratio 20 (6-26); Blood Urea Nitrogen 23 mg/dL (7-20); Calcium 9.4 mg/dL (8.6-10.8); Chloride 88 mEq/L (98-109); Glucose 143 mg/dL (70-99); Osmolality,Calculated 290 (280-300); Potassium 4.4 mEq/L (3.5-4.5); Sodium 137 mEq/L (136-145); eGFR For African Americans > 60 (> 60); eGFR For Non-African Americans 52 (> 60)
[2017-06-13 15:51] LABS: Carbon Dioxide 42 mEq/L (19-29)
[2017-06-13] MEDS: Bisacodyl 10 MG RECTAL SUPPOSITORY RC PRN (22:44)
[2017-06-13 23:11] LABS: Calcium 9.8 mg/dL (8.6-10.8); Potassium 4.2 mEq/L (3.5-4.5)
[2017-06-14] MEDS: Ipratropium/Albuterol Neb 3 ML IH SCH ×3 (00:29→07:54)
[2017-06-14] MEDS: traMADol 50 MG TABLET PO SCH ×6 (04:39→21:15)
[2017-06-14] MEDS: *HR* Heparin 5,000 UNIT/ML VIAL SQ SCH ×3 (05:56→21:02)
[2017-06-14] MEDS: Ondansetron 4 MG/2 ML VIAL IVP PRN ×2 (05:56→21:02)
[2017-06-14 07:39] LABS: Calcium 9.3 mg/dL (8.6-10.8); Potassium 4.2 mEq/L (3.5-4.5)
[2017-06-14] MEDS: Budesonide/Formoterol 160/4.5 MDI IH SCH ×2 (07:54→20:58)
[2017-06-14] MEDS ORDERED: Ipratropium/Albuterol Neb 3 ML IH PRN (08:00)
[2017-06-14] MEDS ORDERED: 0.9 % Sodium Chloride 250 ML IVC ONE (08:18)
[2017-06-14] MEDS ORDERED: 0.9 % Sodium Chloride 250 ML ONE (08:21)
[2017-06-14] MEDS: Aspirin 81 MG TAB.CHEW PO SCH (08:31)
[2017-06-14] MEDS: Cholecalciferol (D-3) 1,000 UNIT TABLET PO SCH (08:31)
[2017-06-14] MEDS: Acetaminophen 325 MG TABLET PO PRN (08:31)
[2017-06-14] MEDS: Gabapentin 100 MG CAPSULE PO SCH ×3 (08:31→21:12)
[2017-06-14] MEDS: GuaiFENesin Liq 200 MG/10 ML UDC PO SCH ×3 (08:31→17:30)
[2017-06-14] MEDS: Nystatin POWDER 30 GM BOTTLE TP SCH ×2 (08:32→21:03)
[2017-06-14] MEDS: Insulin LISPRO 300 UNITS/3 ML VIAL SQ SCH ×4 (08:32→21:01)
[2017-06-14] MEDS: Nystatin OINT 15 GM TUBE TP SCH ×4 (08:32→21:03)
--- NOTE | 2017-06-14 12:08 | Internal Med Progress Note ---
Date of Encounter: 06/14/17 Time of Encounter: 11:00 - Assessment and plan (1) Congestive heart failure Current Visit: Yes Status: Chronic Assessment and plan: Patient has preserved ejection fraction. She has evidence of cor pulmonale with flattening of the septum and pressure overload. This is causing diastolic CHF. Discontinue Lasix drip. Patient had only 800 mL of urine output all day yesterday. Her renal function has worsened. Her blood pressure has been in the 80s systolic overnight. Patient will be given 250 mL bolus and reassess. No further diuresis as the patient is unable to tolerate the same. Patient is high risk due to risk of recurrent respiratory failure which may require intubation and mechanical ventilation. Patient has acute kidney injury and is at risk of worsening renal failure. Qualifiers: Congestive heart failure type: diastolic Congestive heart failure chronicity: acute on chronic Qualified Code(s): I50.33 - Acute on chronic diastolic (congestive) heart failure (2) Chronic respiratory failure Current Visit: Yes Status: Chronic Assessment and plan: Continue BiPAP at 18/14. Oxygen supplementation when the patient is off BiPAP. Patient's oxygen requirement has not changed despite removal of 8 L of fluids. Patient will require continued oxygen supplementation and referral to pulmonary physician as an outpatient. Qualifiers: Respiratory failure complication: hypoxia and hypercapnia Qualified Code(s) : J96.11 - Chronic respiratory failure with hypoxia; J96.12 - Chronic respiratory failure with hypercapnia (3) Cor pulmonale Current Visit: Yes Status: Chronic Assessment and plan: Patient will require outpatient follow-up with pulmonary hypertension clinic and will eventually require a right heart catheterization. Will require follow-up with sleep physician for adequate management of her sleep apnea and obesity hypoventilation syndrome. (4) Hypothyroidism Current Visit: Yes Status: Chronic Assessment and plan: Continue home Synthroid dose. Qualifiers: Hypothyroidism type: acquired Qualified Code(s): E03.9 - Hypothyroidism, unspecified (5) SMITA treated with BiPAP Current Visit: Yes Status: Chronic Assessment and plan: will continue the bIPAP at night and when the patient is sleeping at the settings of 18/14 and when necessary. (6) Morbid obesity with BMI of 50.0-59.9, adult Current Visit: No Status: Chronic (7) BLANCA (acute kidney injury) Current Visit: Yes Status: Resolved Assessment and plan: Mild worsening of renal function overnight likely due to over diuresis. Discontinue diuretics and patient has been given to 50 mL bolus. Reassess renal function. Monitor urine output and avoid hypotension. - Subjective Interval history: 46-year-old female with a history of obstructive sleep apnea, obesity hypoventilation syndrome, pulmonary hypertension, cor pulmonale, morbid obesity , chronic kidney stage III, type 2 diabetes mellitus who presented to the hospital due to fall on her way from the bathroom. She was found to have acute kidney injury at an outside facility and was transferred to [facility] for further management. Patient was admitted to the hospital with a diagnosis of acute kidney injury and elevated troponin. She was given intravenous fluids. Cardiology was consulted for elevated troponins. During stay in the hospital, she experienced worsening respiratory failure and required noninvasive positive pressure ventilation. Despite the same, the patient worsened and required transfer to the ICU and intubation with mechanical ventilation. In the ICU, the patient developed hypotension due to cardiogenic shock and required pressors. The patient was eventually able to be weaned off pressors with adequate hydration. She was also placed on heparin drip due to suspicion for pulmonary embolus. CT angiogram was performed after her renal function resolved. CT endocrine did not reveal PE. Lower extremity Dopplers revealed superficial vein thrombosis but did not reveal any DVT. Hence , heparin was discontinued. CT scan of the abdomen/pelvis revealed anasarca and hepatosplenomegaly. Once her cardiac shock resolved, she was diuresed aggressively with Lasix for her anasarca. She was eventually extubated and is currently on BiPAP during sleep. She was transferred out of the ICU. While she was on [address], the patient continued to require 6-8 L of oxygen for supplementation and her blood pressure was running borderline low. Hence, she was placed on a Lasix drip at 5 mg per hour. Over the past 3 days, the patient has been net negative about 8 L. However, she has continued to require the same amount of oxygen. The patient has had borderline low blood pressures into the 80s overnight. She has also become tachycardic today. She continues to require the same amount of oxygen and her renal function has worsened compared to yesterday. She continues to complain of 10/10 pain in her lower abdomen diffusely without any radiation that is worsened with activity. She is requesting a surgery consult. - Constitutional Vitals: Temp Pulse Resp BP Pulse Ox 98.1 F 118 18 100/71 92 06/14/17 07:00 06/14/17 07:00 06/14/17 07:54 06/14/17 07:00 06/14/17 08:48 General appearance: Present: A&O X 3, morbidly obese Exam: Gen.: Lying in bed. Mild distress. Chest: Clear to auscultation bilaterally. No adventitious sounds present. Reduced breath sounds bilaterally. CVS: First and second heart sounds present. No murmurs, rubs or gallops. Tachycardia present. Abdomen: Soft, diffusely tender to palpation without any rebound tenderness, guarding or rigidity; nondistended. Bowel sounds present. Internal Medicine: Result - Labs CBC & Chem 7: 06/11/17 23:56 06/14/17 07:02 Labs: BMP 06/13/17 06/13/17 06/14/17 15:18 22:36 07:02 Sodium 137 137 135 L Potassium 4.4 4.2 4.2 Chloride 88 L 86 L 86 L Carbon Dioxide 42 H* 44 H* 46 H* BUN 23 H 25 H 27 H Creatinine 1.13 H 1.33 H 1.32 H Glucose 143 H 128 H 120 H Calcium 9.4 9.8 9.3 - ABG Interpretation ABG results: ABG ABG pH 7.42 pH Units (7.32-7.45) 06/07/17 05:10 ABG pCO2 73 mmHg (35-45) H* 06/07/17 05:10 ABG pO2 71 mmHg (85-104) L 06/07/17 05:10 ABG O2 Saturation 94 % (95-98) L 06/07/17 05:10 PT/INR, D-dimer PT 13.2 Seconds (9.4-12.1) H 06/12/17 01:02 - VTE Documentation of Mechanical Device: Intermittent pneumatic compression device Consult Discharge Plan - Plan Referrals: Mi Warren, [employer] [Advanced Practice Nurse] - (computers are down call back later )
[2017-06-14] MEDS ORDERED: 0.9 % Sodium Chloride 500 ML IVC ONE ×2 (15:51→18:49)
--- NOTE | 2017-06-14 16:37 | General Surgery Consult Note ---
<Agnieszka Plascencia - Last Filed: 06/14/17 16:27> Date of Encounter: 06/14/17 Time of Encounter: 16:20 Assessment and Plan (1) Cholelithiases Current Visit: Yes Status: Chronic The patient has been seen and examined with Dr. Morrissey- CT scan has been reviewed. Her abdominal pain syndrome is not consistent with cholelithiasis There is no indication for surgical intervention at this time The patient may follow up with Dr. Morrissey as an outpatient when she is medically stable Qualifiers: Cholelithiasis location: gallbladder Cholecystitis presence: without cholecystitis Biliary obstruction: without biliary obstruction Qualified Code(s): K80.20 - Calculus of gallbladder without cholecystitis without obstruction (2) Acute and chronic respiratory failure Current Visit: Yes Status: Acute Qualifiers: Respiratory failure complication: hypoxia and hypercapnia Qualified Code(s) : J96.21 - Acute and chronic respiratory failure with hypoxia; J96.22 - Acute and chronic respiratory failure with hypercapnia (3) Chronic systolic (congestive) heart failure Current Visit: Yes Status: Chronic (4) Cor pulmonale Current Visit: Yes Status: Acute (5) SMITA treated with BiPAP Current Visit: Yes Status: Chronic (6) BLANCA (acute kidney injury) Current Visit: Yes Status: Acute (7) Morbid obesity with BMI of 50.0-59.9, adult Current Visit: No Status: Chronic History of Present Illness Consult date: 06/14/17 Reason for consult: abdominal pain Requesting physician: Alexander Mark History of present illness: Ms. Corbett is a 46 year old female with multiple comorbidities. She was transferred from an outlying facility after a fall at home. She was found to have acute kidney injury as well as elevated troponins. She was admitted to the hospitalist service and has been followed by cardiology for elevated troponins. During the patient's hospital stay she complains of generalized abdominal pain. The patient states that her pain is located over her entire abdomen. She is unable to identify any aggravating or alleviating factors. Denies any nausea or vomiting. She has had a CAT scan which shows evidence of cholelithiasis. There are no signs of acute cholecystitis. The patient did have a HIDA scan complete 1 year ago which shows a gallbladder ejection fraction of 18%. We have been asked to see and evaluate the patient for recommendations and treatment. Past Med Surg Social Fam HX - Past Medical History Source: old records reviewed Medical history: arthritis, asthma, cardiomyopathy, CHF, COPD, diabetes, GERD, hypertension, osteoporosis, peripheral artery disease, venous stasis, other Psychiatric history: anxiety, depression, other - Past Surgical History Surgical History: herniorrhaphy, other - Social History Smoking Status: Former smoker Smokeless Tobacco Status: No Alcohol use: none Drug use: marijuana - Family History Son Adopted: No Family Member Ethnicity: Non- Living Status: Still Living Hx Family Cardiac Disorders: Yes Hx Family Respiratory Disorders: Yes Hx Family Cancer: No Hx Family GI Disorders: No Hx Family Endocrine Disorder: Yes Hx Family Neuromuscular Disorders: No Hx Family Neurologic Disorders: No Hx Family HEENT Disorders: No Hx Family Autoimmune Disorders: No Father Living Status: Hx Family Cardiac Disorders: Yes (enlarged heart) Hx Family Respiratory Disorders: (Emphysema) Hx Family Cancer: Yes (Lung and rectal cancer) Hx Family Endocrine Disorder: Yes (diabetic) Mother Living Status: Hx Family Cardiac Disorders: Yes (stents) Hx Family GI Disorders: Yes (GI bleed) Hx Family Endocrine Disorder: Yes (diabetic) Medications and Allergies Omeprazole [PriLOSEC] 20 mg PO DAILY 06/22/16 [History] Oxygen 3 l NS AD 06/22/16 [History] Albuterol Sulfate [Ventolin Hfa] 18 gm IH Q4H PRN #1 [email or web address] 04/25/17 [Rx] Tiotropium [Spiriva] 18 mcg IH DAILY #30 inh 04/25/17 [Rx] Cholecalciferol (D-3) [Vitamin D] 2,000 unit PO DAILY #60 tablet 05/06/17 [Rx] Furosemide [Lasix] 40 mg PO DAILY #30 tablet 05/14/17 [Rx] Albuterol Neb [Proventil Neb] 2.5 mg IH Q6H PRN 05/29/17 [History] Metoprolol [Lopressor] 25 mg PO BID 05/29/17 [History] Potassium Chloride [Klor-Con Sprinkle] 10 meq PO BID 05/29/17 [History] Allergies No Known Allergies Allergy (Verified 05/06/17 00:08) Review of Systems All systems PM: reviewed and no additional remarkable complaints except as stated (in the HPI) All systems PM: A 10-system review of systems was performed and is negative for pertinent findings except as documented above in the HPI. General Surgery Exam Initial Vital Signs Resp BP Pulse Ox 24 85/62 94 05/29/17 06:40 05/29/17 06:40 05/29/17 06:40 - General physical appearance chronically ill, obese - Eyes normal ocular movement - ENT normal mucosa, atraumatic, normocephalic - Respiratory other (Patient with Bipap for assistance, supplemental oxygen. Conversational dyspnea noted.) - Cardiovascular Cardiovascular exam: Present: tachycardia - Abdomen Abdomen general surgery: Present: bowel sounds present, soft, tender (tender to the touch of her skin) Abdominal Tenderness: Present: diffusely - Integumentary Integumentary general surgery: Present: warm and dry - Musculoskeletal Present: other (Severe deconditioning and morbid obesity) - Psychiatric Psychiatric general surgery: Present: A&Ox3 Exam Initial Vital Signs Resp BP Pulse Ox 24 85/62 94 05/29/17 06:40 05/29/17 06:40 05/29/17 06:40 Results - Labs 06/11/17 23:56 06/14/17 07:02 Abnormal lab results RBC 3.51 M/mcL (3.82-4.97) L 06/11/17 23:56 Hgb 10.0 g/dL (11.5-15.4) L 06/11/17 23:56 MCV 101.1 fL (83.0-100.0) H 06/11/17 23:56 MCHC 28.2 g/dL (31.6-35.5) L 06/11/17 23:56 RDW 18.3 % (11.5-14.5) H 06/11/17 23:56 Nucleated RBCs/100 WBC 0.3 /100 WBC (0) H 06/03/17 04:00 Reactive Lymphocytes Present (Not Present) A 06/01/17 03:30 Large Platelets Present (Not Present) A 06/01/17 03:30 Immature Plt Fraction 10.6 % (1.1-6.1) H 06/06/17 04:40 Polychromasia 1+ (Not Present) A 06/01/17 03:30 Hypochromasia Present (Not Present) A 06/11/17 23:56 Basophilic Stippling 1+ (Not Present) A 06/01/17 03:30 Anisocytosis 1+ (Not Present) A 06/07/17 04:29 Microcytosis Present (Not Present) A 06/11/17 23:56 PT 13.2 Seconds (9.4-12.1) H 06/12/17 01:02 APTT 36.4 Seconds (26.0-36.0) H 06/12/17 01:02 ABG pCO2 73 mmHg (35-45) H* 06/07/17 05:10 ABG pO2 71 mmHg (85-104) L 06/07/17 05:10 ABG HCO3 47.4 mEQ/L (21-27) H 06/07/17 05:10 ABG Total CO2 49.6 mEq/L (20-26) H 06/07/17 05:10 ABG O2 Saturation 94 % (95-98) L 06/07/17 05:10 ABG Base Excess 19.6 mEq/L (-2.0 to 3.0) H 06/07/17 05:10 VBG pH 7.50 pH Units (7.32-7.42) H 05/31/17 21:46 VBG pO2 202 mmHg (25-40) H 05/31/17 21:46 VBG HCO3 36.7 mEq/L (21-27) H 05/31/17 21:46 Mixed VBG pH 7.29 (7.34-7.36) L 05/31/17 21:46 Mixed VBG pCO2 89 mmHg (44-46) H 05/31/17 21:46 Mixed VBG pO2 73 mmHg (35-45) H 05/31/17 21:46 Mixed VBG Oxyhemoglobin 93.0 % (60-80) H 05/31/17 21:46 Sodium 135 mEq/L (136-145) L 06/14/17 07:02 Chloride 86 mEq/L (98-109) L 06/14/17 07:02 Carbon Dioxide 46 mEq/L (19-29) H* 06/14/17 07:02 BUN 27 mg/dL (7-20) H 06/14/17 07:02 Creatinine 1.32 mg/dL (0.57-1.11) H 06/14/17 07:02 Est GFR ( Amer) 53 (> 60) L 06/14/17 07:02 Est GFR (Non-Af Amer) 44 (> 60) L 06/14/17 07:02 Glucose 120 mg/dL (70-99) H 06/14/17 07:02 POC Glucose 121 (58-89) H 06/13/17 16:19 Total Bilirubin 1.8 mg/dL (0.2-1.2) H 06/11/17 23:56 Direct Bilirubin 1.1 mg/dL (0.0-0.5) H 06/11/17 23:56 Alkaline Phosphatase 147 Units/L (38-126) H 06/11/17 23:56 Creatine Kinase 200 Units/L (29-168) H 06/01/17 03:06 Troponin I 0.36 ng/mL (0-0.03) H* 05/29/17 15:53 Albumin 3.0 g/dL (3.5-5.0) L 06/11/17 23:56 Globulin 3.8 g/dL (2.4-3.5) H 06/11/17 23:56 Albumin/Globulin Ratio 0.8 (1.1-2.2) L 06/11/17 23:56 Urine Clarity Hazy (Clear) A 05/29/17 18:15 Ur Specific Hinckley 1.026 (1.010-1.025) H 05/29/17 18:15 Urine Protein 30 mg/dL (Neg-Trace) H 05/29/17 18:15 Urine Ketones Trace mg/dL (Negative) H 05/29/17 18:15 Urine Bilirubin Small (Negative) H 05/29/17 18:15 Urine Microscopic WBC 15-30 per hpf (0-3) H 05/29/17 18:15 Ur Squamous Epith Cells Many per lpf (None-Few) H 05/29/17 18:15 Amorphous Sediment Moderate (Few) H 05/29/17 18:15 Urine Bacteria Moderate per hpf (None-Few) H 05/29/17 18:15 Hyaline Casts Moderate per lpf (None-Few) H 05/29/17 18:15 Ur Culture Indicated? YES (NO) A 05/29/17 18:15 Diabetes panel 06/13/17 06/14/17 Range/Units 22:36 07:02 Sodium 137 135 L (136-145) mEq/L Potassium 4.2 4.2 (3.5-4.5) mEq/L Chloride 86 L 86 L (98-109) mEq/L Carbon Dioxide 44 H* 46 H* (19-29) mEq/L BUN 25 H 27 H (7-20) mg/dL Creatinine 1.33 H 1.32 H (0.57-1.11) mg/dL Glucose 128 H 120 H (70-99) mg/dL Calcium 9.8 9.3 (8.6-10.8) mg/dL Calcium panel 06/13/17 06/14/17 Range/Units 22:36 07:02 Calcium 9.8 9.3 (8.6-10.8) mg/dL Pituitary panel 06/13/17 06/14/17 Range/Units 22:36 07:02 Sodium 137 135 L (136-145) mEq/L Potassium 4.2 4.2 (3.5-4.5) mEq/L Chloride 86 L 86 L (98-109) mEq/L Carbon Dioxide 44 H* 46 H* (19-29) mEq/L BUN 25 H 27 H (7-20) mg/dL Creatinine 1.33 H 1.32 H (0.57-1.11) mg/dL Glucose 128 H 120 H (70-99) mg/dL Calcium 9.8 9.3 (8.6-10.8) mg/dL Adrenal panel 06/13/17 06/14/17 Range/Units 22:36 07:02 Sodium 137 135 L (136-145) mEq/L Potassium 4.2 4.2 (3.5-4.5) mEq/L Chloride 86 L 86 L (98-109) mEq/L Carbon Dioxide 44 H* 46 H* (19-29) mEq/L BUN 25 H 27 H (7-20) mg/dL Creatinine 1.33 H 1.32 H (0.57-1.11) mg/dL Glucose 128 H 120 H (70-99) mg/dL Calcium 9.8 9.3 (8.6-10.8) mg/dL All other labs normal. - Imaging Additional studies: Knee X-Ray 05/29/17 09:34 IMPRESSION: No acute osseous abnormality Tiny joint effusion, either posttraumatic or reactive Atherosclerosis. Correlate with clinical risk factors D/ / John Guillaume MD / John Guillaume MD Interpreting Provider: John Guillaume MD Retroperitoneum Ultrasound 05/29/17 12:23 IMPRESSION: No evidence of hydronephrosis. Perihepatic ascites. 1.2 cm left renal cyst. D/ / Avinash Laboy MD / Avinash Laboy MD Interpreting Provider: Avinash Laboy MD Guidance Ultrasound 05/31/17 00:00 IMPRESSION: Successful temporary hemodialysis catheter placement. The catheter tip lies in the distal SVC. D/ / Albino Kaur MD / Albino Kaur MD Interpreting Provider: Albino Kaur MD Insertion Non-Tunneled Catheter 05/31/17 00:00 IMPRESSION: Successful temporary hemodialysis catheter placement. The catheter tip lies in the distal SVC. D/ / Albino Kaur MD / Albino Kaur MD Interpreting Provider: Albino Kaur MD Chest CTA 06/04/17 17:34 IMPRESSION: 1. No evidence of pulmonary embolus. 2. Cardiomegaly with findings of acute congestive heart failure evidenced by mild pulmonary edema and small layering bilateral pleural effusions. 3. Enlarged main pulmonary artery as can be seen in the setting of pulmonary arterial hypertension. 4. Moderate ascites. 5. Mild hepatosplenomegaly. 6. Cholelithiasis. 7. Diffuse anasarca. D/ / Ernst Barber MD / Ernst Barber MD Interpreting Provider: Ernst Barber MD Gallbladder Ultrasound 06/05/17 07:00 IMPRESSION: 1. Cholelithiasis, without sonographic evidence of cholecystitis. 2. Mild hepatomegaly. 3. Mild amount of nonspecific perihepatic ascites, similar to the recent CT study. 4. Obscuration of the pancreas by overlying bowel gas. 5. Normal sonographic appearance of the common bile duct and right kidney. D/ / 06/05/2017 15:10:17 Roberto Richter MD / albert Interpreting Provider: Roberto Richter MD X-Ray 06/05/17 18:46 IMPRESSION: Enteric tube coiled in the gastric body. D/ / Brayden Patel MD / Brayden Patel MD Interpreting Provider: Brayden Patel MD Chest X-Ray 06/11/17 08:09 IMPRESSION: 1. Interval extubation with mild improved bilateral medial lower lobe opacities and interstitial edema. 2. No new or progressive consolidative changes. D/ / 06/11/2017 15:25:34 Kojo Reynoso MD / yuki Interpreting Provider: Kojo Reynoso MD Abdomen/Pelvis CT 06/12/17 00:46 IMPRESSION: 1. Mild bibasilar atelectasis versus pneumonia. 2. Cholelithiasis. 3. Cirrhosis with mild ascites. D/ / Tomas Spears MD / Tomas Spears MD Interpreting Provider: Tomas Spears MD Consult Discharge Plan - Plan Referrals: Mi Warren, [employer]ULTANT [Advanced Practice Nurse] - (computers are down call back later ) <Steven Morrissey - Last Filed: 06/15/17 07:04> Date of Encounter: 06/15/17 Review of Systems All systems PM: A 10-system review of systems was performed and is negative for pertinent findings except as documented above in the HPI. General Surgery Exam Initial Vital Signs Resp BP Pulse Ox 24 85/62 94 05/29/17 06:40 05/29/17 06:40 05/29/17 06:40 Exam Initial Vital Signs Resp BP Pulse Ox 24 85/62 94 05/29/17 06:40 05/29/17 06:40 05/29/17 06:40 Results - Labs 06/15/17 05:53 06/15/17 05:53 Abnormal lab results WBC 26.8 K/mcL (4.3-11.1) H D 06/15/17 05:53 RBC 3.30 M/mcL (3.82-4.97) L 06/15/17 05:53 Hgb 9.4 g/dL (11.5-15.4) L 06/15/17 05:53 Hct 33.4 % (35.3-44.9) L 06/15/17 05:53 MCV 101.2 fL (83.0-100.0) H 06/15/17 05:53 MCHC 28.1 g/dL (31.6-35.5) L 06/15/17 05:53 RDW 18.2 % (11.5-14.5) H 06/15/17 05:53 MPV 12.5 fL (9.4-12.4) H 06/15/17 05:53 Neutrophils # 25.7 K/mcL (1.6-8.9) H 06/15/17 05:53 Lymphocytes # 0.5 K/mcL (0.6-4.6) L 06/15/17 05:53 Nucleated RBCs/100 WBC 0.3 /100 WBC (0) H 06/03/17 04:00 Reactive Lymphocytes Present (Not Present) A 06/01/17 03:30 Large Platelets Present (Not Present) A 06/15/17 05:53 Immature Plt Fraction 10.6 % (1.1-6.1) H 06/06/17 04:40 Polychromasia 1+ (Not Present) A 06/01/17 03:30 Hypochromasia Present (Not Present) A 06/15/17 05:53 Basophilic Stippling 1+ (Not Present) A 06/01/17 03:30 Anisocytosis 2+ (Not Present) A 06/15/17 05:53 Microcytosis Present (Not Present) A 06/11/17 23:56 PT 13.2 Seconds (9.4-12.1) H 06/12/17 01:02 APTT 36.4 Seconds (26.0-36.0) H 06/12/17 01:02 ABG pCO2 73 mmHg (35-45) H* 06/07/17 05:10 ABG pO2 71 mmHg (85-104) L 06/07/17 05:10 ABG HCO3 47.4 mEQ/L (21-27) H 06/07/17 05:10 ABG Total CO2 49.6 mEq/L (20-26) H 06/07/17 05:10 ABG O2 Saturation 94 % (95-98) L 06/07/17 05:10 ABG Base Excess 19.6 mEq/L (-2.0 to 3.0) H 06/07/17 05:10 VBG pH 7.50 pH Units (7.32-7.42) H 05/31/17 21:46 VBG pO2 202 mmHg (25-40) H 05/31/17 21:46 VBG HCO3 36.7 mEq/L (21-27) H 05/31/17 21:46 Mixed VBG pH 7.29 (7.34-7.36) L 05/31/17 21:46 Mixed VBG pCO2 89 mmHg (44-46) H 05/31/17 21:46 Mixed VBG pO2 73 mmHg (35-45) H 05/31/17 21:46 Mixed VBG Oxyhemoglobin 93.0 % (60-80) H 05/31/17 21:46 Sodium 131 mEq/L (136-145) L 06/15/17 05:53 Potassium 4.6 mEq/L (3.5-4.5) H 06/15/17 05:53 Chloride 84 mEq/L (98-109) L 06/15/17 05:53 Carbon Dioxide 42 mEq/L (19-29) H* 06/15/17 05:53 BUN 34 mg/dL (7-20) H 06/15/17 05:53 Creatinine 2.10 mg/dL (0.57-1.11) H D 06/15/17 05:53 Est GFR ( Amer) 31 (> 60) L 06/15/17 05:53 Est GFR (Non-Af Amer) 26 (> 60) L 06/15/17 05:53 Glucose 147 mg/dL (70-99) H 06/15/17 05:53 POC Glucose 133 (58-89) H 06/15/17 05:03 Magnesium 1.5 mg/dL (1.6-2.6) L 06/15/17 05:53 Total Bilirubin 3.1 mg/dL (0.2-1.2) H 06/15/17 05:53 Direct Bilirubin 1.1 mg/dL (0.0-0.5) H 06/11/17 23:56 Alkaline Phosphatase 238 Units/L (38-126) H 06/15/17 05:53 Creatine Kinase 200 Units/L (29-168) H 06/01/17 03:06 Troponin I 0.36 ng/mL (0-0.03) H* 05/29/17 15:53 Albumin 2.3 g/dL (3.5-5.0) L 06/15/17 05:53 Globulin 4.3 g/dL (2.4-3.5) H 06/15/17 05:53 Albumin/Globulin Ratio 0.5 (1.1-2.2) L 06/15/17 05:53 Urine Clarity Hazy (Clear) A 05/29/17 18:15 Ur Specific Hinckley 1.026 (1.010-1.025) H 05/29/17 18:15 Urine Protein 30 mg/dL (Neg-Trace) H 05/29/17 18:15 Urine Ketones Trace mg/dL (Negative) H 05/29/17 18:15 Urine Bilirubin Small (Negative) H 05/29/17 18:15 Urine Microscopic WBC 15-30 per hpf (0-3) H 05/29/17 18:15 Ur Squamous Epith Cells Many per lpf (None-Few) H 05/29/17 18:15 Amorphous Sediment Moderate (Few) H 05/29/17 18:15 Urine Bacteria Moderate per hpf (None-Few) H 05/29/17 18:15 Hyaline Casts Moderate per lpf (None-Few) H 05/29/17 18:15 Ur Culture Indicated? YES (NO) A 05/29/17 18:15 Diabetes panel 06/14/17 06/15/17 Range/Units 07:02 05:53 Sodium 135 L 131 L (136-145) mEq/L Potassium 4.2 4.6 H (3.5-4.5) mEq/L Chloride 86 L 84 L (98-109) mEq/L Carbon Dioxide 46 H* 42 H* (19-29) mEq/L BUN 27 H 34 H (7-20) mg/dL Creatinine 1.32 H 2.10 H D (0.57-1.11) mg/dL Glucose 120 H 147 H (70-99) mg/dL Calcium 9.3 9.6 (8.6-10.8) mg/dL AST 24 (5-34) Units/L ALT 29 (0-55) Units/L Alkaline Phosphatase 238 H (38-126) Units/L Albumin 2.3 L (3.5-5.0) g/dL Calcium panel 06/14/17 06/15/17 Range/Units 07:02 05:53 Calcium 9.3 9.6 (8.6-10.8) mg/dL Albumin 2.3 L (3.5-5.0) g/dL Pituitary panel 06/14/17 06/15/17 Range/Units 07:02 05:53 Sodium 135 L 131 L (136-145) mEq/L Potassium 4.2 4.6 H (3.5-4.5) mEq/L Chloride 86 L 84 L (98-109) mEq/L Carbon Dioxide 46 H* 42 H* (19-29) mEq/L BUN 27 H 34 H (7-20) mg/dL Creatinine 1.32 H 2.10 H D (0.57-1.11) mg/dL Glucose 120 H 147 H (70-99) mg/dL Calcium 9.3 9.6 (8.6-10.8) mg/dL Adrenal panel 06/14/17 06/15/17 Range/Units 07:02 05:53 Sodium 135 L 131 L (136-145) mEq/L Potassium 4.2 4.6 H (3.5-4.5) mEq/L Chloride 86 L 84 L (98-109) mEq/L Carbon Dioxide 46 H* 42 H* (19-29) mEq/L BUN 27 H 34 H (7-20) mg/dL Creatinine 1.32 H 2.10 H D (0.57-1.11) mg/dL Glucose 120 H 147 H (70-99) mg/dL Calcium 9.3 9.6 (8.6-10.8) mg/dL Total Bilirubin 3.1 H (0.2-1.2) mg/dL AST 24 (5-34) Units/L ALT 29 (0-55) Units/L Alkaline Phosphatase 238 H (38-126) Units/L Albumin 2.3 L (3.5-5.0) g/dL All other labs normal. - Attending Attestation For this encounter, I have reviewed the [employer]ER or PA documentation, treatment plan, and medical decision making; and I have had face to face time with this patient. The patient was seen and evaluated with the clinical nurse practitioner. Personally examined the patient and reviewed the CAT scan of the abdomen. I feel that her abdominal complaints are nonspecific and not related to cholelithiasis. Elective cystectomy is not indicated at this time due to uncontrolled medical comorbidities. I would avoid surgery and all but the most dire circumstances I will be glad to follow her as an outpatient Steven Morrissey MD FACS
[2017-06-14] MEDS ORDERED: 0.9 % Sodium Chloride 500 ML ONE (17:28)
[2017-06-15] MEDS: GuaiFENesin Liq 200 MG/10 ML UDC PO SCH ×4 (01:51→17:37)
[2017-06-15] MEDS: 0.9 % Sodium Chloride 500 ML IVC ONE (02:22)
[2017-06-15] MEDS: traMADol 50 MG TABLET PO SCH ×6 (03:20→21:29)
[2017-06-15] MEDS ORDERED: Furosemide 20 MG/2 ML VIAL IVP ONE (04:24)
[2017-06-15] MEDS: *HR* Heparin 5,000 UNIT/ML VIAL SQ SCH ×3 (04:39→21:30)
[2017-06-15 06:13] LABS: Mean Platelet Volume 12.5 fL (9.4-12.4); Red Cell Distribution Width 18.2 % (11.5-14.5)
[2017-06-15 06:15] LABS: Hematocrit 33.4 % (35.3-44.9); Hemoglobin 9.4 g/dL (11.5-15.4); Mean Corpuscular HGB Conc 28.1 g/dL (31.6-35.5); Mean Corpuscular Hemoglobin 28.5 pg (28.0-33.3); Mean Corpuscular Volume 101.2 fL (83.0-100.0); Platelet Count 225 K/mcL (140-400)
[2017-06-15 06:32] LABS: Albumin 2.3 g/dL (3.5-5.0); Albumin/Globulin Ratio 0.5 (1.1-2.2); Bilirubin,Total 3.1 mg/dL (0.2-1.2); Calcium 9.6 mg/dL (8.6-10.8); Globulin 4.3 g/dL (2.4-3.5); Magnesium 1.5 mg/dL (1.6-2.6); Potassium 4.6 mEq/L (3.5-4.5); Total Protein 6.6 g/dL (6.0-8.3)
[2017-06-15 06:56] LABS: Hypochromasia Present (Not Present); Large Platelets Present (Not Present); Lymphocytes # 0.5 K/mcL (0.6-4.6); Monocytes # 0.5 K/mcL (0.0-1.3); Neutrophils # 25.7 K/mcL (1.6-8.9); Platelet Estimate Normal (Normal)
[2017-06-15 06:57] LABS: Anisocytosis 2+ (Not Present)
[2017-06-15] MEDS: Budesonide/Formoterol 160/4.5 MDI IH SCH ×2 (08:01→21:57)
[2017-06-15] MEDS ORDERED: Magnesium Sulfate 1 GM in D5% in Water 100 ML IVPB ONE (08:47)
[2017-06-15] MEDS ORDERED: 0.9 % Sodium Chloride 250 ML IVC ONE (08:48)
[2017-06-15] MEDS: Aspirin 81 MG TAB.CHEW PO SCH (09:42)
[2017-06-15] MEDS: Cholecalciferol (D-3) 1,000 UNIT TABLET PO SCH (09:42)
[2017-06-15] MEDS: Gabapentin 100 MG CAPSULE PO SCH ×3 (09:42→21:28)
[2017-06-15] MEDS: Insulin LISPRO 300 UNITS/3 ML VIAL SQ SCH ×4 (09:43→21:29)
[2017-06-15] MEDS: Nystatin POWDER 30 GM BOTTLE TP SCH ×2 (09:44→21:30)
[2017-06-15] MEDS: Nystatin OINT 15 GM TUBE TP SCH ×4 (12:46→21:28)
[2017-06-15] MEDS ORDERED: Vancomycin 1,000 MG in D5% in Water 250 ML IVPB SCH (12:59)
--- NOTE | 2017-06-15 13:04 | Internal Med Progress Note ---
Date of Encounter: 06/15/17 Time of Encounter: 13:03 - Assessment and plan (1) Pneumonia Current Visit: Yes Status: Acute Assessment and plan: Given leukocytosis and CXR findings, will start empiric treatment for HCAP start Vancomycin and Zosyn pharmacy to renally dose abx f/u blood cultures O2 supplementation will closely monitor Qualifiers: Pneumonia type: due to unspecified organism Laterality: right Lung location: lower lobe of lung Qualified Code(s): J18.1 - Lobar pneumonia, unspecified organism (2) BLANCA (acute kidney injury) Current Visit: Yes Status: Acute Assessment and plan: worsening of renal function overnight likely due to severe hypotension Noted to have decrease in urine output will continue to hold antihypertensives and diuretics avoid nephrotoxic agents close monitoring of BP f/u renal US nephrology consultation requested will closely monitor renal function, urine output and avoid hypotension (3) Chronic respiratory failure Current Visit: Yes Status: Chronic Assessment and plan: Continue BiPAP at 18/14. Oxygen supplementation when the patient is off BiPAP. Patient's oxygen requirement has not changed despite removal of 8 L of fluids. Patient will require continued oxygen supplementation and referral to pulmonary physician as an outpatient. Qualifiers: Respiratory failure complication: hypoxia and hypercapnia Qualified Code(s) : J96.11 - Chronic respiratory failure with hypoxia; J96.12 - Chronic respiratory failure with hypercapnia (4) Congestive heart failure Current Visit: Yes Status: Chronic Assessment and plan: Patient has preserved ejection fraction. She has evidence of cor pulmonale with flattening of the septum and pressure overload. This is causing diastolic CHF. Discontinued Lasix drip. Patient has had decreased in urine output. Her renal function has worsened. Her blood pressure has been in the 80s systolic overnight. Pt's BP improved after 250ml NS bolus No further diuresis as the patient is unable to tolerate the same. Patient is high risk due to risk of recurrent respiratory failure which may require intubation and mechanical ventilation. Patient has acute kidney injury and is at risk of worsening renal failure. Qualifiers: Congestive heart failure type: diastolic Congestive heart failure chronicity: acute on chronic Qualified Code(s): I50.33 - Acute on chronic diastolic (congestive) heart failure (5) Cor pulmonale Current Visit: Yes Status: Chronic Assessment and plan: Patient will require outpatient follow-up with pulmonary hypertension clinic and will eventually require a right heart catheterization. Will require follow-up with sleep physician for adequate management of her sleep apnea and obesity hypoventilation syndrome. (6) Hypothyroidism Current Visit: Yes Status: Chronic Assessment and plan: Continue home Synthroid dose. Qualifiers: Hypothyroidism type: acquired Qualified Code(s): E03.9 - Hypothyroidism, unspecified (7) Morbid obesity with BMI of 50.0-59.9, adult Current Visit: No Status: Chronic (8) SMITA treated with BiPAP Current Visit: Yes Status: Chronic Assessment and plan: will continue the bIPAP at night and when the patient is sleeping at the settings of 18 and when necessary. (9) DVT prophylaxis Current Visit: Yes Status: Acute Assessment and plan: Heparin SQ - Subjective Interval history: Patient seen and examined at bedside. Resting in bed eating lunch. Reports of generalized weakness, but noted to be ambulating around the room well. Noted to have persistently low BP with significant decreased in urine output. - Constitutional Vitals: Temp Pulse Resp BP Pulse Ox 98.7 F 123 16 103/63 93 06/15/17 11:00 06/15/17 11:00 06/15/17 11:00 06/15/17 11:00 06/15/17 11:00 General appearance: Present: A&O X 3, morbidly obese, no acute distress - Head Head exam: Present: atraumatic, normocephalic - Eye Eye exam: Present: conjuntiva pink, sclera anicteric - Respiratory Respiratory exam: Absent: wheezes (coarse breath sounds bilaterally) - Cardiovascular Cardiovascular exam: Present: +S1, +S2, tachycardia. Absent: diastolic murmur, gallop, rubs, systolic murmur - GI/Abdominal GI/Abdominal exam: Present: normal bowel sounds, soft. Absent: tenderness ( morbidly obese) - Extremities Exam Extremities exam: Present: pedal edema, warm, radial pulses palpable and symetrical - Neurological Exam Neurological exam: Present: alert, oriented X3 - Psychiatric Psychiatric exam: Present: normal affect, normal mood Internal Medicine: Result - Labs CBC & Chem 7: 06/15/17 05:53 06/15/17 05:53 Labs: Short CBC 06/15/17 Range/Units 05:53 WBC 26.8 H D (4.3-11.1) K/mcL Hgb 9.4 L (11.5-15.4) g/dL Hct 33.4 L (35.3-44.9) % Plt Count 225 (140-400) K/mcL Neutrophils # 25.7 H (1.6-8.9) K/mcL BMP 06/15/17 05:53 Sodium 131 L Potassium 4.6 H Chloride 84 L Carbon Dioxide 42 H* BUN 34 H Creatinine 2.10 H D Glucose 147 H Calcium 9.6 Liver Function 06/15/17 Range/Units 05:53 Total Bilirubin 3.1 H (0.2-1.2) mg/dL AST 24 (5-34) Units/L ALT 29 (0-55) Units/L Alkaline Phosphatase 238 H (38-126) Units/L Albumin 2.3 L (3.5-5.0) g/dL - ABG Interpretation ABG results: ABG ABG pH 7.42 pH Units (7.32-7.45) 06/07/17 05:10 ABG pCO2 73 mmHg (35-45) H* 06/07/17 05:10 ABG pO2 71 mmHg (85-104) L 06/07/17 05:10 ABG O2 Saturation 94 % (95-98) L 06/07/17 05:10 PT/INR, D-dimer PT 13.2 Seconds (9.4-12.1) H 06/12/17 01:02 - Impressions Impressions Chest X-Ray 06/15/17 08:43 IMPRESSION: Cardiomegaly. Small right pleural effusion with basilar atelectasis and/or consolidation. D/ / Christiano Harrell MD / Christiano Harrell MD Interpreting Provider: Christiano Harrell MD - VTE Documentation of Mechanical Device: Intermittent pneumatic compression device Consult Discharge Plan - Plan Referrals: Mi Warren, COUTIERIER [Advanced Practice Nurse] - (computers are down call back later )
[2017-06-15] MEDS ORDERED: Vancomycin 1 EACH in D5% in Water 250 ML IVPB SCH (15:00)
[2017-06-15] MEDS ORDERED: Vancomycin 2,000 MG in D5% in Water 500 ML IVPB ONE (15:00)
[2017-06-15] MEDS: Piperacillin/Tazobactam 3.375 GM in D5% in Water (Mini-Bag+) 100 ML IVPB SCH ×2 (15:36→21:28)
[2017-06-15 22:34] LABS: ABG Base Excess 13.7 mEq/L (-2.0 to 3.0); ABG Oxygen Saturation 92 % (95-98); ABG PH 7.21 pH Units (7.32-7.45); ABG PO2 77 mmHg (85-104); ABG TCO2 49.5 mEq/L (20-26)
[2017-06-15 22:35] LABS: Blood Gas FiO2 50 %
[2017-06-15 22:36] LABS: ABG PCO2 115 mmHg (35-45)
[2017-06-16 00:12] LABS: ABG HCO3 46.4 mEQ/L (21-27); ABG Oxygen Saturation 95 % (95-98); ABG PH 7.21 pH Units (7.32-7.45); ABG PO2 92 mmHg (85-104)
[2017-06-16 00:13] LABS: ABG PCO2 116 mmHg (35-45); Blood Gas FiO2 60 %
[2017-06-16] MEDS: GuaiFENesin Liq 200 MG/10 ML UDC PO SCH ×4 (00:43→18:00)
--- NOTE | 2017-06-16 00:58 | Event Note ---
Date of Encounter: 06/16/17 Time of Encounter: 23:00 Called by RN stating the patient has been lethargic. Patient has been on BiPAP. Her ABG revealed PCO2 of 115 and PO2 of 77. BiPAP settings were adjusted to 2/10 at 60%, and repeat ABG revealed PCO2 116. At this point it was decided that patient would require intubation and mechanical ventilation. She was recently extubated after being mechanically ventilated for acute on chronic respiratory failure. She also required pressors at the time, which were slowly weaned off. On examination patient is drowsy. She opens eyes to stimulation and is able to verbalize minimally and follows simple verbal commands. Heart rate 109, blood pressure 91/61, O2 sat 96% on BiPAP, heart distant heart sounds S1-S2 positive tachycardia, lungs decreased air entry in both bases with no wheezes Patient's renal function is worsening. Creatinine is 2.1 and BUN is 34. Patient is oliguric. White is now 26.1. Patient has been started on empiric IV vancomycin and Zosyn for probable healthcare associated pneumonia earlier today. Chest x-ray done earlier today revealed cardiomegaly, small pleural effusion on the right side and basilar atelectasis with no consolidation Her blood pressure has been low throughout her stay. Patient does have severe RV systolic failure and and severely dilated and moderately hypokinetic RV. Patient is morbidly obese and she does have diastolic CHF, chronic respiratory failure, probable HCAP, cor pulmonale, severe sleep apnea and obesity hypoventilation. Guarded condition with poor prognosis. Patient is being transferred to the ICU and will be sedated, intubated and mechanically ventilated. Continue close monitoring and repeat labs in a.m.
[2017-06-16] MEDS: traMADol 50 MG TABLET PO SCH ×3 (01:01→10:17)
[2017-06-16 02:26] LABS: ABG Base Excess 13.8 mEq/L (-2.0 to 3.0); ABG HCO3 45.6 mEQ/L (21-27); ABG Oxygen Saturation 81 % (95-98); ABG PH 7.23 pH Units (7.32-7.45); ABG PO2 54 mmHg (85-104); ABG TCO2 48.9 mEq/L (20-26); Blood Gas FiO2 40 %
[2017-06-16 02:27] LABS: ABG PCO2 109 mmHg (35-45)
[2017-06-16 04:55] LABS: ABG Base Excess 15.6 mEq/L (-2.0 to 3.0); ABG HCO3 47.7 mEQ/L (21-27); ABG Oxygen Saturation 92 % (95-98); ABG PH 7.23 pH Units (7.32-7.45); ABG PO2 74 mmHg (85-104); ABG TCO2 51.2 mEq/L (20-26)
[2017-06-16 04:56] LABS: Blood Gas FiO2 35 %
[2017-06-16 04:57] LABS: ABG PCO2 114 mmHg (35-45)
[2017-06-16] MEDS: *HR* Heparin 5,000 UNIT/ML VIAL SQ SCH ×3 (05:19→21:25)
[2017-06-16] MEDS: Piperacillin/Tazobactam 3.375 GM in D5% in Water (Mini-Bag+) 100 ML IVPB SCH (05:20)
[2017-06-16 05:47] LABS: Basophils % 0.2 %; Hematocrit 33.7 % (35.3-44.9); Hemoglobin 9.2 g/dL (11.5-15.4); Immature Granulocytes % 1.6 % (0-4); Lymphocytes # 0.7 K/mcL (0.6-4.6); Lymphocytes % 3.5 %; Mean Corpuscular HGB Conc 27.3 g/dL (31.6-35.5); Mean Corpuscular Hemoglobin 27.8 pg (28.0-33.3); Mean Corpuscular Volume 101.8 fL (83.0-100.0); Mean Platelet Volume 12.7 fL (9.4-12.4); Monocytes % 5.4 %; Platelet Count 233 K/mcL (140-400); Red Blood Count 3.31 M/mcL (3.82-4.97); Red Cell Distribution Width 17.9 % (11.5-14.5); Segmented Neutrophils % 89.3 %
[2017-06-16 06:04] LABS: Neutrophils # 17.2 K/mcL (1.6-8.9)
[2017-06-16 06:09] LABS: Calcium 9.6 mg/dL (8.6-10.8); Magnesium 1.7 mg/dL (1.6-2.6); Phosphorous 4.7 mg/dL (2.3-4.7); Potassium 4.7 mEq/L (3.5-4.5)
--- NOTE | 2017-06-16 06:20 | Event Note ---
<Nell Lagunas Cha - Last Filed: 06/16/17 06:15> Date of Encounter: 06/16/17 Time of Encounter: 01:00 Patient was transferred in the ICU overnight. While on the floor was found that her CO2 was elevated. Patient was on the BiPAP however her settings were increased after she got here. She was mentating appropriately. Patient has a very large body habitus as well as right sided heart failure and concern for significant deterioration during intubation is a concern. Her initial CO2 was 119. After an hour on BiPAP it came down to 109. Patient lung sounds are clear. She has been mentating appropriately and appeared to be improving however morning ABG showed a CO2 level of 119. <Freedom Barnes - Last Filed: 06/16/17 06:25> Date of Encounter: 06/16/17 Patient's CO2 has now improved slightly. She is awake and alert. Hold off on intubation for now. Continue close monitoring. Pulmonology consult.
[2017-06-16 06:24] LABS: Hypochromasia Present (Not Present); Large Platelets Present (Not Present); Platelet Estimate Normal (Normal)
[2017-06-16] MEDS: Insulin LISPRO 300 UNITS/3 ML VIAL SQ SCH ×4 (07:31→21:15)
[2017-06-16] MEDS: Budesonide/Formoterol 160/4.5 MDI IH SCH ×2 (08:23→19:55)
--- NOTE | 2017-06-16 09:30 | Pulmonology Progress Note ---
<NicoleDomenico nguyen - Last Filed: 06/16/17 11:20> Date of Encounter: 06/16/17 Time of Encounter: 09:29 Assessment and Plan (1) Acute and chronic respiratory failure Current Visit: Yes Status: Acute In the setting of obesity hypoventilation syndrome with right-sided heart failure and cor pulmonale. Patient had an extended stay in the intensive care unit recently and had been on the medical floor for the last several days. Patient became short of breath and somnolent and ABG revealed an acute on chronic hypercapnic respiratory acidosis. Patient remains on BiPAP support and is somewhat lethargic but still awake and responsive. We will continue with BiPAP support as long as patient can stay awake. Unfortunately given the patient's severe underlying comorbidities patient may require tracheostomy and long-term mechanical ventilation. Patient is hypotensive with anuric acute kidney injury. At this point the etiology is unclear as the patient was on renal replacement therapy several weeks ago but her kidney function had recovered. Trending of her creatinine over the last several days as revealed worsening kidney function and patient has had 15 mL of urine output in the last 36 hours. Bladder scan showed no urine in the bladder. We will cautiously fluid hydrate and monitor urine output. Patient may require pressor support and eventual reinitiation of renal replacement therapy. Nephrology is following and we appreciate their input. Initially antibiotics were initiated however there is no clear source of infection. Patient does have a mild leukocytosis that is improving which could be related to underlying stress in the setting of critical illness. Blood cultures are pending. We will hold off on further antibiotics at this time. Qualifiers: Respiratory failure complication: hypoxia and hypercapnia Qualified Code(s) : J96.21 - Acute and chronic respiratory failure with hypoxia; J96.22 - Acute and chronic respiratory failure with hypercapnia (2) Acute on chronic renal failure Current Visit: Yes Status: Acute Qualifiers: Acute renal failure type: unspecified Chronic kidney disease stage: stage 3 (moderate) Qualified Code(s): N17.9 - Acute kidney failure, unspecified; N18.3 - Chronic kidney disease, stage 3 (moderate) (3) Chronic systolic (congestive) heart failure Current Visit: Yes Status: Chronic (4) Cor pulmonale Current Visit: Yes Status: Acute (5) Moderate to severe pulmonary hypertension Current Visit: Yes Status: Chronic (6) Morbid obesity with BMI of 50.0-59.9, adult Current Visit: No Status: Chronic (7) SMITA treated with BiPAP Current Visit: Yes Status: Chronic Subjective Principal diagnosis: Respiratory insufficiency Interval history: Patient seen and examined at bedside bedside. Patient is BiPAP dependent at this time. She has no complaints at this time. She is somewhat somnolent but easily arousable and answers questions appropriately. Objective PUL Vital signs: Last Vital Signs Temp 97.5 F L 06/16/17 07:40 Pulse 109 06/16/17 08:00 Resp 13 06/16/17 08:00 BP 80/55 06/16/17 08:00 Pulse Ox 93 06/16/17 08:00 Results - Laboratory Findings CBC and BMP: 06/16/17 04:56 06/16/17 04:56 ABG ABG pH 7.21 pH Units (7.32-7.45) L 06/16/17 Unknown ABG pCO2 116 mmHg (35-45) H* 06/16/17 Unknown ABG pO2 92 mmHg (85-104) 06/16/17 Unknown ABG O2 Saturation 95 % (95-98) 06/16/17 Unknown PT/INR, D-dimer PT 13.2 Seconds (9.4-12.1) H 06/12/17 01:02 Abnormal lab findings: Abnormal lab results WBC 19.2 K/mcL (4.3-11.1) H 06/16/17 04:56 RBC 3.31 M/mcL (3.82-4.97) L 06/16/17 04:56 Hgb 9.2 g/dL (11.5-15.4) L 06/16/17 04:56 Hct 33.7 % (35.3-44.9) L 06/16/17 04:56 MCV 101.8 fL (83.0-100.0) H 06/16/17 04:56 MCH 27.8 pg (28.0-33.3) L 06/16/17 04:56 MCHC 27.3 g/dL (31.6-35.5) L 06/16/17 04:56 RDW 17.9 % (11.5-14.5) H 06/16/17 04:56 MPV 12.7 fL (9.4-12.4) H 06/16/17 04:56 Neutrophils # 17.2 K/mcL (1.6-8.9) H 06/16/17 04:56 Nucleated RBCs/100 WBC 0.3 /100 WBC (0) H 06/03/17 04:00 Reactive Lymphocytes Present (Not Present) A 06/01/17 03:30 Large Platelets Present (Not Present) A 06/16/17 04:56 Immature Plt Fraction 10.6 % (1.1-6.1) H 06/06/17 04:40 Polychromasia 1+ (Not Present) A 06/01/17 03:30 Hypochromasia Present (Not Present) A 06/16/17 04:56 Basophilic Stippling 1+ (Not Present) A 06/01/17 03:30 Anisocytosis 2+ (Not Present) A 06/15/17 05:53 Microcytosis Present (Not Present) A 06/11/17 23:56 PT 13.2 Seconds (9.4-12.1) H 06/12/17 01:02 APTT 36.4 Seconds (26.0-36.0) H 06/12/17 01:02 ABG pH 7.21 pH Units (7.32-7.45) L 06/16/17 Unknown ABG pCO2 116 mmHg (35-45) H* 06/16/17 Unknown ABG HCO3 46.4 mEQ/L (21-27) H 06/16/17 Unknown ABG Total CO2 50.0 mEq/L (20-26) H 06/16/17 Unknown ABG Base Excess 14.0 mEq/L (-2.0 to 3.0) H 06/16/17 Unknown VBG pH 7.50 pH Units (7.32-7.42) H 05/31/17 21:46 VBG pO2 202 mmHg (25-40) H 05/31/17 21:46 VBG HCO3 36.7 mEq/L (21-27) H 05/31/17 21:46 Mixed VBG pH 7.29 (7.34-7.36) L 05/31/17 21:46 Mixed VBG pCO2 89 mmHg (44-46) H 05/31/17 21:46 Mixed VBG pO2 73 mmHg (35-45) H 05/31/17 21:46 Mixed VBG Oxyhemoglobin 93.0 % (60-80) H 05/31/17 21:46 Sodium 131 mEq/L (136-145) L 06/16/17 04:56 Potassium 4.7 mEq/L (3.5-4.5) H 06/16/17 04:56 Chloride 84 mEq/L (98-109) L 06/16/17 04:56 Carbon Dioxide 40 mEq/L (19-29) H* 06/16/17 04:56 BUN 41 mg/dL (7-20) H 06/16/17 04:56 Creatinine 2.76 mg/dL (0.57-1.11) H 06/16/17 04:56 Est GFR ( Amer) 23 (> 60) L 06/16/17 04:56 Est GFR (Non-Af Amer) 19 (> 60) L 06/16/17 04:56 Glucose 124 mg/dL (70-99) H 06/16/17 04:56 POC Glucose 134 (58-89) H 06/16/17 07:30 Total Bilirubin 3.1 mg/dL (0.2-1.2) H 06/15/17 05:53 Direct Bilirubin 1.1 mg/dL (0.0-0.5) H 06/11/17 23:56 Alkaline Phosphatase 238 Units/L (38-126) H 06/15/17 05:53 Creatine Kinase 200 Units/L (29-168) H 06/01/17 03:06 Troponin I 0.36 ng/mL (0-0.03) H* 05/29/17 15:53 Albumin 2.3 g/dL (3.5-5.0) L 06/15/17 05:53 Globulin 4.3 g/dL (2.4-3.5) H 06/15/17 05:53 Albumin/Globulin Ratio 0.5 (1.1-2.2) L 06/15/17 05:53 Urine Clarity Hazy (Clear) A 05/29/17 18:15 Ur Specific Archbold 1.026 (1.010-1.025) H 05/29/17 18:15 Urine Protein 30 mg/dL (Neg-Trace) H 05/29/17 18:15 Urine Ketones Trace mg/dL (Negative) H 05/29/17 18:15 Urine Bilirubin Small (Negative) H 05/29/17 18:15 Urine Microscopic WBC 15-30 per hpf (0-3) H 05/29/17 18:15 Ur Squamous Epith Cells Many per lpf (None-Few) H 05/29/17 18:15 Amorphous Sediment Moderate (Few) H 05/29/17 18:15 Urine Bacteria Moderate per hpf (None-Few) H 05/29/17 18:15 Hyaline Casts Moderate per lpf (None-Few) H 05/29/17 18:15 Ur Culture Indicated? YES (NO) A 05/29/17 18:15 - Clinical Findings Intake & Output: Intake & Output 06/15/17 06/16/17 06/16/17 23:59 07:59 15:59 Intake Total 100 / 100 100 / 100 Output Total 25 / 25 0 / 0 Balance 100 / 100 75 / 75 0 / 0 - VTE Documentation of Mechanical Device: Intermittent pneumatic compression device Consult Discharge Plan - Plan Referrals: Mi Warren, [employer] [Advanced Practice Nurse] - (computers are down call back later ) <Emre Kowalski - Last Filed: 06/16/17 11:34> Date of Encounter: 06/16/17 Objective PUL Vital signs: Last Vital Signs Temp 97.5 F L 06/16/17 07:40 Pulse 108 06/16/17 10:00 Resp 12 06/16/17 10:00 BP 83/60 06/16/17 10:00 Pulse Ox 94 06/16/17 10:00 Results - Laboratory Findings CBC and BMP: 06/16/17 04:56 06/16/17 04:56 ABG ABG pH 7.21 pH Units (7.32-7.45) L 06/16/17 Unknown ABG pCO2 116 mmHg (35-45) H* 06/16/17 Unknown ABG pO2 92 mmHg (85-104) 06/16/17 Unknown ABG O2 Saturation 95 % (95-98) 06/16/17 Unknown PT/INR, D-dimer PT 13.2 Seconds (9.4-12.1) H 06/12/17 01:02 Abnormal lab findings: Abnormal lab results WBC 19.2 K/mcL (4.3-11.1) H 06/16/17 04:56 RBC 3.31 M/mcL (3.82-4.97) L 06/16/17 04:56 Hgb 9.2 g/dL (11.5-15.4) L 06/16/17 04:56 Hct 33.7 % (35.3-44.9) L 06/16/17 04:56 MCV 101.8 fL (83.0-100.0) H 06/16/17 04:56 MCH 27.8 pg (28.0-33.3) L 06/16/17 04:56 MCHC 27.3 g/dL (31.6-35.5) L 06/16/17 04:56 RDW 17.9 % (11.5-14.5) H 06/16/17 04:56 MPV 12.7 fL (9.4-12.4) H 06/16/17 04:56 Neutrophils # 17.2 K/mcL (1.6-8.9) H 06/16/17 04:56 Nucleated RBCs/100 WBC 0.3 /100 WBC (0) H 06/03/17 04:00 Reactive Lymphocytes Present (Not Present) A 06/01/17 03:30 Large Platelets Present (Not Present) A 06/16/17 04:56 Immature Plt Fraction 10.6 % (1.1-6.1) H 06/06/17 04:40 Polychromasia 1+ (Not Present) A 06/01/17 03:30 Hypochromasia Present (Not Present) A 06/16/17 04:56 Basophilic Stippling 1+ (Not Present) A 06/01/17 03:30 Anisocytosis 2+ (Not Present) A 06/15/17 05:53 Microcytosis Present (Not Present) A 06/11/17 23:56 PT 13.2 Seconds (9.4-12.1) H 06/12/17 01:02 APTT 36.4 Seconds (26.0-36.0) H 06/12/17 01:02 ABG pH 7.21 pH Units (7.32-7.45) L 06/16/17 Unknown ABG pCO2 116 mmHg (35-45) H* 06/16/17 Unknown ABG HCO3 46.4 mEQ/L (21-27) H 06/16/17 Unknown ABG Total CO2 50.0 mEq/L (20-26) H 06/16/17 Unknown ABG Base Excess 14.0 mEq/L (-2.0 to 3.0) H 06/16/17 Unknown VBG pH 7.50 pH Units (7.32-7.42) H 05/31/17 21:46 VBG pO2 202 mmHg (25-40) H 05/31/17 21:46 VBG HCO3 36.7 mEq/L (21-27) H 05/31/17 21:46 Mixed VBG pH 7.29 (7.34-7.36) L 05/31/17 21:46 Mixed VBG pCO2 89 mmHg (44-46) H 05/31/17 21:46 Mixed VBG pO2 73 mmHg (35-45) H 05/31/17 21:46 Mixed VBG Oxyhemoglobin 93.0 % (60-80) H 05/31/17 21:46 Sodium 131 mEq/L (136-145) L 06/16/17 04:56 Potassium 4.7 mEq/L (3.5-4.5) H 06/16/17 04:56 Chloride 84 mEq/L (98-109) L 06/16/17 04:56 Carbon Dioxide 40 mEq/L (19-29) H* 06/16/17 04:56 BUN 41 mg/dL (7-20) H 06/16/17 04:56 Creatinine 2.76 mg/dL (0.57-1.11) H 06/16/17 04:56 Est GFR ( Amer) 23 (> 60) L 06/16/17 04:56 Est GFR (Non-Af Amer) 19 (> 60) L 06/16/17 04:56 Glucose 124 mg/dL (70-99) H 06/16/17 04:56 POC Glucose 124 (58-89) H 06/16/17 11:17 Total Bilirubin 3.1 mg/dL (0.2-1.2) H 06/15/17 05:53 Direct Bilirubin 1.1 mg/dL (0.0-0.5) H 06/11/17 23:56 Alkaline Phosphatase 238 Units/L (38-126) H 06/15/17 05:53 Creatine Kinase 200 Units/L (29-168) H 06/01/17 03:06 Troponin I 0.36 ng/mL (0-0.03) H* 05/29/17 15:53 Albumin 2.3 g/dL (3.5-5.0) L 06/15/17 05:53 Globulin 4.3 g/dL (2.4-3.5) H 06/15/17 05:53 Albumin/Globulin Ratio 0.5 (1.1-2.2) L 06/15/17 05:53 Urine Clarity Hazy (Clear) A 05/29/17 18:15 Ur Specific Archbold 1.026 (1.010-1.025) H 05/29/17 18:15 Urine Protein 30 mg/dL (Neg-Trace) H 05/29/17 18:15 Urine Ketones Trace mg/dL (Negative) H 05/29/17 18:15 Urine Bilirubin Small (Negative) H 05/29/17 18:15 Urine Microscopic WBC 15-30 per hpf (0-3) H 05/29/17 18:15 Ur Squamous Epith Cells Many per lpf (None-Few) H 05/29/17 18:15 Amorphous Sediment Moderate (Few) H 05/29/17 18:15 Urine Bacteria Moderate per hpf (None-Few) H 05/29/17 18:15 Hyaline Casts Moderate per lpf (None-Few) H 05/29/17 18:15 Ur Culture Indicated? YES (NO) A 05/29/17 18:15 - Clinical Findings Intake & Output: Intake & Output 06/15/17 06/16/17 06/16/17 23:59 07:59 15:59 Intake Total 100 / 100 100 / 100 Output Total 25 / 25 0 / 0 Balance 100 / 100 75 / 75 0 / 0
[2017-06-16] MEDS: Nystatin POWDER 30 GM BOTTLE TP SCH ×2 (09:34→21:16)
[2017-06-16] MEDS: Nystatin OINT 15 GM TUBE TP SCH ×4 (09:35→21:17)
[2017-06-16] MEDS ORDERED: 0.9 % Sodium Chloride 500 ML IVC ONE (10:54)
[2017-06-16] MEDS ORDERED: 0.9 % Sodium Chloride 500 ML ONE (10:59)
--- NOTE | 2017-06-16 11:15 | Nephrology Progress Note ---
Date of Encounter: 06/16/17 Time of Encounter: 11:06 Subjective Principal diagnosis: Respiratory insufficiency Interval history: Patient with multiple comorbidities who was seen by nephrology (last note____ by Dr. Ruiz). Patient had BLANCA and required renal replacement therapy. Renal function stabilized and we signed off on ____. Patient since then been getting diuretics and has had worsening hypotension. She subsequently redeveloped BLANCA and [facility] were re-consulted to evaluated. Patient is on bipap and somnolent. She is in the ICU. Despite the placement of a blackburn she has had no urine output overnight. Review of systems is unobtainable secondary to mental status. Objective - Vital Signs Vital signs: Vital Signs Temp Pulse Resp BP Pulse Ox 06/16/17 10:00 108 12 83/60 94 06/16/17 09:00 107 14 79/50 92 06/16/17 08:00 109 13 80/55 93 06/16/17 07:40 97.5 F L 06/16/17 07:25 109 14 87/52 95 06/16/17 06:00 110 16 81/56 93 06/16/17 05:00 108 16 80/59 97 06/16/17 04:44 97.9 F 06/16/17 04:00 109 24 83/55 95 06/16/17 03:00 110 32 84/59 94 06/16/17 02:00 109 16 82/54 88 06/16/17 01:30 112 14 86/58 90 06/16/17 01:00 110 18 102/69 94 06/16/17 00:50 96.7 F L 111 14 105/68 90 06/15/17 22:01 20 06/15/17 21:23 91/61 94 06/15/17 20:00 97.6 F 109 13 80/66 92 06/15/17 16:50 97.7 F 109 20 91/73 96 Intake and Output 06/15/17 06/16/17 06/16/17 23:59 07:59 15:59 Intake Total 100 / 100 100 / 100 Output Total 25 / 25 0 / 0 Balance 100 / 100 75 / 75 0 / 0 Intake: IV Fluids 100 / 100 100 / 100 Zosyn 3.375 GM In 100 / 100 100 / 100 Dextrose 5% (Minibag+) 100 ML 100 ML @ 25 mls/hr IVPB Q8H [facility] Rx#: [id number] Output: Catheter 0 / 0 Other: Blood Glucose* 119 134 - Lab 06/16/17 04:56 06/16/17 04:56 Most recent lab results ABG pH 7.21 pH Units (7.32-7.45) L 06/16/17 Unknown ABG pCO2 116 mmHg (35-45) H* 06/16/17 Unknown ABG pO2 92 mmHg (85-104) 06/16/17 Unknown ABG HCO3 46.4 mEQ/L (21-27) H 06/16/17 Unknown ABG O2 Saturation 95 % (95-98) 06/16/17 Unknown Calcium 9.6 mg/dL (8.6-10.8) 06/16/17 04:56 Phosphorus 4.7 mg/dL (2.3-4.7) 06/16/17 04:56 Magnesium 1.7 mg/dL (1.6-2.6) 06/16/17 04:56 - VTE Documentation of Mechanical Device: Intermittent pneumatic compression device Consult Discharge Plan - Plan Referrals: Mi Warren, CLOTH COLORER [Advanced Practice Nurse] - (computers are down call back later )
[2017-06-16] MEDS: 0.9 % Sodium Chloride 500 ML IVC ONE (11:38)
[2017-06-16] MEDS: Aspirin 81 MG TAB.CHEW PO SCH (14:21)
[2017-06-16] MEDS: Cholecalciferol (D-3) 1,000 UNIT TABLET PO SCH (14:21)
[2017-06-16] MEDS ORDERED: 0.9 % Sodium Chloride 1,000 ML IVC ONE (16:03)
[2017-06-16] MEDS ORDERED: Dexmedetomidine HCl 400 MCG/100 ML MLS IVC ONE (16:32)
[2017-06-16] MEDS: Dexmedetomidine HCl 400 MCG/100 ML MLS IVC SCH ×2 (16:41→20:14)
--- NOTE | 2017-06-16 16:53 | Procedure Note ---
Date of procedure: 06/16/17 Pre-op diagnosis: Hypotension Post-op diagnosis: same Procedure: Central Venous Catheter placement: Written consent was obtained from the patient. The left internal jugular vein was surveyed using ultrasound and deemed to be a suitable target. The patient was cleaned and draped in the usual sterile fashion. Under ultrasound guidance the introducer needle was advanced into the left internal jugular vein. Dark red, nonpulsatile blood flow was obtained. The guidewire was attempted to be passed through the needle however resistance was met. The needle was repositioned and the guidewire again was attempted to be advanced through the needle however resistance continued to be encountered. The needle was withdrawn and 2 more attempts at cannulating the jugular vein were attempted and were unsuccessful. At this point with the attending physician, Dr. Kowalski , attempted and was successful at obtaining dark red blood flow in feeding the guidewire without resistance. A aron in the skin was then made, and the dilator was advanced over the guidewire and the skin and soft tissues were dilated. A 20 cm triple catheter was advanced over the guidewire and into the vein without resistance. Guidewire was removed intact. All the reports were tested and shown to draw blood and flushed easily. The catheter was sutured in place at 2 points. Biopatch and sterile dressing were applied. Chest x-ray confirmed the tip of the catheter in the distal SVC with no pneumothorax. The patient tolerated the procedure well, there were no immediate complications. The attending physician, Dr. Kowalski, was present and supervised the entire procedure. Anesthesia: local (10 mL of 1% lidocaine) Surgeon: Domenico Gomez Estimated blood loss (cc): 10 IV fluids (cc): 10 Pathology: none sent Condition: critical Disposition: ICU
--- NOTE | 2017-06-16 16:53 | Event Note ---
Date of Encounter: 06/16/17 Time of Encounter: 16:[address] Gomez earlier today and the placement of left IJ central venous catheter. The device was placed without difficulty using sterile maximal barrier technique ultrasound guidance. The device sutured into position all ports flushed follow-up chest x-ray verified appropriate placement. Given declining respiratory and clinical status in spite of noninvasive ventilatory support, I assisted Dr. Gomez with oral intubation. The patient received Versed 2 mg, etomidate 10 mg IV and subsequently using glides scope, 7- 1/2 oral endotracheal tube was placed under direct visualization by Dr. Gomez through the larynx without difficulty. End-tidal monitoring revealed appropriate placement. The device was affixed at 22 cm right lip line and a follow-up chest x-ray is pending. Focused ultrasound evaluation of the heart disclose a tremendously enlarged right ventricle with septal flattening suggesting pressure-volume overload. Left ventricular function preserved. Given this finding this patient's overall clinical status oligo anuria mild hypotension, the patient will be placed on low -dose levophed to maintain an acceptable mean blood pressure between 65 and 70 mmHg and low-dose milrinone to assist with right heart function. A baseline central venous saturation will be obtained and follow-up value obtained in order to gauge improvement in cardiac performance.
--- NOTE | 2017-06-16 16:57 | Procedure Note ---
Date of procedure: 06/16/17 Pre-op diagnosis: Acute on chronic respiratory failure Post-op diagnosis: same Procedure: Endotracheal intubation: She was placed in the supine position. Patient was preoxygenated with bag valve mask. Patient was sedated using 2 mg of Versed and 10 mg of etomidate. A size 4 Glidascope blade was advanced through the oropharynx and a grade 2 view of the vocal cords was obtained. A size 7.5 endotracheal tube was visualized advancing through the vocal cords. CO2 detector turned positive color change. Bilateral breath sounds are present. The patient tolerated the procedure well, there are no immediate complications. Chest x-ray confirmed placement pending. The attending physician, Dr. oKwalski, was present for supervised the entire procedure. Anesthesia: MAC Surgeon: Domenico Gomez Pathology: none sent Condition: critical Disposition: ICU
[2017-06-16 16:58] LABS: Calcium 9.5 mg/dL (8.6-10.8); Potassium 4.9 mEq/L (3.5-4.5)
[2017-06-16] MEDS ORDERED: Lacri-Lube 3.5 GM TUBE BOTH EYES PRN (16:58)
[2017-06-16 17:41] LABS: ABG Base Excess 10.2 mEq/L (-2.0 to 3.0); ABG Oxygen Saturation 86 % (95-98); ABG PH 7.27 pH Units (7.32-7.45); ABG PO2 59 mmHg (85-104); ABG TCO2 42.7 mEq/L (20-26)
[2017-06-16 17:42] LABS: ABG PCO2 87 mmHg (35-45); Blood Gas FiO2 60 %
[2017-06-16] MEDS: MILRINONE 20 MG/100 ML IVC SCH (17:53)
[2017-06-16] MEDS: Norepinephrine 4 MG in D5% in Water 250 ML IVC SCH (19:00)
[2017-06-16] MEDS: Lacri-Lube 3.5 GM TUBE BOTH EYES SCH (21:16)
[2017-06-16] MEDS: Chlorhexidine Rinse 15 ML MOUTHWASH MM SCH (21:25)
[2017-06-17] MEDS: Lacri-Lube 3.5 GM TUBE BOTH EYES SCH ×6 (00:28→20:07)
[2017-06-17] MEDS: GuaiFENesin Liq 200 MG/10 ML UDC PO SCH ×3 (00:29→12:42)
[2017-06-17] MEDS: MILRINONE 20 MG/100 ML IVC SCH ×3 (01:49→20:08)
[2017-06-17 03:15] LABS: Ionized Calcium 1.14 mmol/L (1.15-1.35)
[2017-06-17 03:24] LABS: Hematocrit 30.4 % (35.3-44.9); Hemoglobin 8.9 g/dL (11.5-15.4); Mean Corpuscular HGB Conc 29.3 g/dL (31.6-35.5); Mean Corpuscular Hemoglobin 28.7 pg (28.0-33.3); Mean Corpuscular Volume 98.1 fL (83.0-100.0); Mean Platelet Volume 12.7 fL (9.4-12.4); Platelet Count 257 K/mcL (140-400); Red Cell Distribution Width 17.8 % (11.5-14.5)
[2017-06-17 03:25] LABS: Albumin/Globulin Ratio 0.5 (1.1-2.2); Bilirubin,Direct 1.6 mg/dL (0.0-0.5); Bilirubin,Indirect 0.5 mg/dL (0.0-1.2); Bilirubin,Total 2.1 mg/dL (0.2-1.2); Calcium 9.2 mg/dL (8.6-10.8); Globulin 4.1 g/dL (2.4-3.5); Magnesium 1.5 mg/dL (1.6-2.6); Phosphorous 4.5 mg/dL (2.3-4.7); Total Protein 6.1 g/dL (6.0-8.3)
[2017-06-17] MEDS: Norepinephrine 4 MG in D5% in Water 250 ML IVC SCH ×2 (04:18→18:19)
[2017-06-17 04:25] LABS: Large Platelets Present (Not Present); Lymphocytes # 1.2 K/mcL (0.6-4.6); Monocytes # 0.8 K/mcL (0.0-1.3); Neutrophils # 17.2 K/mcL (1.6-8.9); Platelet Estimate Normal (Normal)
[2017-06-17 04:27] LABS: Hypochromasia Present (Not Present); Macrocytosis Present (Not Present); Microcytosis Present (Not Present)
[2017-06-17 04:35] LABS: ABG Base Excess 11.5 mEq/L (-2.0 to 3.0); ABG HCO3 40.2 mEQ/L (21-27); ABG Oxygen Saturation 87 % (95-98); ABG PH 7.32 pH Units (7.32-7.45); ABG PO2 57 mmHg (85-104); ABG TCO2 42.6 mEq/L (20-26); Blood Gas FiO2 60 %
[2017-06-17 04:37] LABS: ABG PCO2 78 mmHg (35-45)
[2017-06-17] MEDS: Dexmedetomidine HCl 400 MCG/100 ML MLS IVC SCH ×5 (05:55→23:01)
[2017-06-17] MEDS: *HR* Heparin 5,000 UNIT/ML VIAL SQ SCH ×3 (05:56→21:25)
[2017-06-17] MEDS ORDERED: Calcium Gluconate 1,000 MG in D5% in Water 100 ML IVPB PRN (06:59)
[2017-06-17] MEDS ORDERED: Sodium Phosphate 30 MMOL in D5% in Water 100 ML IVPB PRN (06:59)
[2017-06-17] MEDS ORDERED: *HR* Etomidate 40 MG/20 ML VIAL IVP ONE (07:26)
[2017-06-17] MEDS ORDERED: Aminoglycoside Consult 1 EACH MC ONE (07:27)
[2017-06-17] MEDS: Budesonide/Formoterol 160/4.5 MDI IH SCH ×2 (08:00→19:37)
[2017-06-17] MEDS: *HR* FentaNYL (PF) 100 MCG/2 ML VIAL IVP PRN ×2 (08:15→13:25)
[2017-06-17] MEDS: Nystatin POWDER 30 GM BOTTLE TP SCH ×2 (08:18→20:09)
[2017-06-17] MEDS: Magnesium Sulfate 2 GM in D5% in Water 100 ML IVPB PRN (08:31)
[2017-06-17] MEDS: Chlorhexidine Rinse 15 ML MOUTHWASH MM SCH ×2 (08:32→20:07)
[2017-06-17] MEDS: Aspirin 81 MG TAB.CHEW PO SCH (08:32)
[2017-06-17] MEDS: Docusate Oral Soln 100 MG/10 ML UDC PO SCH ×2 (08:32→20:06)
[2017-06-17] MEDS: Cholecalciferol (D-3) 1,000 UNIT TABLET PO SCH (08:32)
--- NOTE | 2017-06-17 09:24 | Pulmonology Progress Note ---
Date of Encounter: 06/17/17 Time of Encounter: 13:11 Assessment and Plan (1) Acute and chronic respiratory failure Current Visit: Yes Status: Acute In the setting of obesity hypoventilation syndrome with right-sided heart failure and cor pulmonale. Patient had an extended stay in the intensive care unit recently and had been on the medical floor for the last several days. Patient became short of breath and somnolent and ABG revealed an acute on chronic hypercapnic respiratory acidosis. Patient was on BiPAP support yesterday however her mental status continued to decline and she was intubated. She remains on ventilatory support. ABG shows except for oxygenation and ventilation with a chronic hypercapnia. Patient remains in acute kidney injury. Urine output has picked up slightly however the patient is oliguric. Nephrology is following the patient and plan for dialysis today. A temporary HD catheter was placed at the bedside today. Continue to monitor urine output. Initially antibiotics were initiated however there is no clear source of infection. Patient does have a mild leukocytosis that is improving which could be related to underlying stress in the setting of critical illness. Blood cultures are pending. We will hold off on further antibiotics at this time. Unfortunately given the patient's severe right heart failure in the setting of chronic lung disease her prognosis is extremely poor. Qualifiers: Respiratory failure complication: hypoxia and hypercapnia Qualified Code(s) : J96.21 - Acute and chronic respiratory failure with hypoxia; J96.22 - Acute and chronic respiratory failure with hypercapnia (2) Acute on chronic renal failure Current Visit: Yes Status: Acute Qualifiers: Acute renal failure type: unspecified Chronic kidney disease stage: stage 3 (moderate) Qualified Code(s): N17.9 - Acute kidney failure, unspecified; N18.3 - Chronic kidney disease, stage 3 (moderate) (3) Chronic systolic (congestive) heart failure Current Visit: Yes Status: Chronic (4) Cor pulmonale Current Visit: Yes Status: Acute (5) Moderate to severe pulmonary hypertension Current Visit: Yes Status: Chronic (6) Morbid obesity with BMI of 50.0-59.9, adult Current Visit: No Status: Chronic (7) SMITA treated with BiPAP Current Visit: Yes Status: Chronic Subjective Principal diagnosis: Respiratory insufficiency Interval history: Patient seen and examined at bedside. Patient is intubated and mildly sedated. No evidence of acute distress. Objective PUL Vital signs: Last Vital Signs Temp 99.2 F 06/17/17 08:00 Pulse 93 06/17/17 09:00 Resp 17 06/17/17 09:00 BP 108/58 06/17/17 09:00 Pulse Ox 92 06/17/17 09:00 General appearance: no acute distress ENT: oropharynx moist Auscultation: bilateral: diminished breath sounds Cardiovascular: regular rate and rhythm Gastrointestinal: hypoactive bowel sounds, soft, non-tender, non-distended Extremities: no cyanosis, no clubbing, edema (trace) unable to assess due to mental status Ventilator Settings Ventilator Settings: Ventilator Settings, Last 8 Hours Ventilator Mode VC+ Ventilator Mode VC+ Ventilator Mode VC+ Ventilator Mode VC+ Ventilator Mode VC+ Ventilator Mode VC+ Ventilator Mode VC+ Ventilator Tidal Volume 300 Setting Ventilator Tidal Volume 300 Setting Ventilator Tidal Volume 300 Setting Ventilator Tidal Volume 300 Setting Ventilator Tidal Volume 300 Setting Ventilator Tidal Volume 300 Setting Ventilator Tidal Volume 300 Setting Ventilator Respiratory Rate 12 Setting Ventilator Respiratory Rate 12 Setting Ventilator Respiratory Rate 12 Setting Ventilator Respiratory Rate 12 Setting Ventilator Respiratory Rate 12 Setting Ventilator Respiratory Rate 12 Setting Ventilator Respiratory Rate 12 Setting Actual Respiratory Rate 16 Actual Respiratory Rate 16 Actual Respiratory Rate 18 Actual Respiratory Rate 20 Actual Respiratory Rate 18 Positive End Expiratory 5 Pressure Positive End Expiratory 5 Pressure Positive End Expiratory 5 Pressure Positive End Expiratory 5 Pressure Positive End Expiratory 5 Pressure Positive End Expiratory 5 Pressure Positive End Expiratory 5 Pressure Peak Inspiratory Airway 11 Pressure Peak Inspiratory Airway 21 Pressure Peak Inspiratory Airway 12 Pressure Peak Inspiratory Airway 11 Pressure Peak Inspiratory Airway 11 Pressure Results - Laboratory Findings CBC and BMP: 06/17/17 03:00 06/17/17 03:00 ABG ABG pH 7.32 pH Units (7.32-7.45) 06/17/17 04:24 ABG pCO2 78 mmHg (35-45) H* 06/17/17 04:24 ABG pO2 57 mmHg (85-104) L 06/17/17 04:24 ABG O2 Saturation 87 % (95-98) L 06/17/17 04:24 PT/INR, D-dimer PT 13.2 Seconds (9.4-12.1) H 06/12/17 01:02 Abnormal lab findings: Abnormal lab results WBC 19.1 K/mcL (4.3-11.1) H 06/17/17 03:00 RBC 3.10 M/mcL (3.82-4.97) L 06/17/17 03:00 Hgb 8.9 g/dL (11.5-15.4) L 06/17/17 03:00 Hct 30.4 % (35.3-44.9) L 06/17/17 03:00 MCHC 29.3 g/dL (31.6-35.5) L 06/17/17 03:00 RDW 17.8 % (11.5-14.5) H 06/17/17 03:00 MPV 12.7 fL (9.4-12.4) H 06/17/17 03:00 Neutrophils # 17.2 K/mcL (1.6-8.9) H 06/17/17 03:00 Nucleated RBCs/100 WBC 0.3 /100 WBC (0) H 06/03/17 04:00 Reactive Lymphocytes Present (Not Present) A 06/01/17 03:30 Large Platelets Present (Not Present) A 06/17/17 03:00 Immature Plt Fraction 10.6 % (1.1-6.1) H 06/06/17 04:40 Polychromasia 1+ (Not Present) A 06/01/17 03:30 Hypochromasia Present (Not Present) A 06/17/17 03:00 Basophilic Stippling 1+ (Not Present) A 06/01/17 03:30 Anisocytosis 2+ (Not Present) A 06/15/17 05:53 Microcytosis Present (Not Present) A 06/17/17 03:00 Macrocytosis Present (Not Present) A 06/17/17 03:00 PT 13.2 Seconds (9.4-12.1) H 06/12/17 01:02 APTT 36.4 Seconds (26.0-36.0) H 06/12/17 01:02 ABG pCO2 78 mmHg (35-45) H* 06/17/17 04:24 ABG pO2 57 mmHg (85-104) L 06/17/17 04:24 ABG HCO3 40.2 mEQ/L (21-27) H 06/17/17 04:24 ABG Total CO2 42.6 mEq/L (20-26) H 06/17/17 04:24 ABG O2 Saturation 87 % (95-98) L 06/17/17 04:24 ABG Base Excess 11.5 mEq/L (-2.0 to 3.0) H 06/17/17 04:24 VBG pH 7.50 pH Units (7.32-7.42) H 05/31/17 21:46 VBG pO2 202 mmHg (25-40) H 05/31/17 21:46 VBG HCO3 36.7 mEq/L (21-27) H 05/31/17 21:46 Mixed VBG pH 7.29 (7.34-7.36) L 05/31/17 21:46 Mixed VBG pCO2 89 mmHg (44-46) H 05/31/17 21:46 Mixed VBG pO2 73 mmHg (35-45) H 05/31/17 21:46 Mixed VBG Oxyhemoglobin 93.0 % (60-80) H 05/31/17 21:46 Sodium 131 mEq/L (136-145) L 06/17/17 03:00 Potassium 5.0 mEq/L (3.5-4.5) H 06/17/17 03:00 Chloride 84 mEq/L (98-109) L 06/17/17 03:00 Carbon Dioxide 40 mEq/L (19-29) H* 06/17/17 03:00 BUN 47 mg/dL (7-20) H 06/17/17 03:00 Creatinine 3.07 mg/dL (0.57-1.11) H 06/17/17 03:00 Est GFR ( Amer) 20 (> 60) L 06/17/17 03:00 Est GFR (Non-Af Amer) 17 (> 60) L 06/17/17 03:00 Glucose 144 mg/dL (70-99) H 06/17/17 03:00 POC Glucose 137 (58-89) H 06/16/17 23:44 Ionized Calcium 1.14 mmol/L (1.15-1.35) L 06/17/17 03:00 Magnesium 1.5 mg/dL (1.6-2.6) L 06/17/17 03:00 Total Bilirubin 2.1 mg/dL (0.2-1.2) H 06/17/17 03:00 Direct Bilirubin 1.6 mg/dL (0.0-0.5) H 06/17/17 03:00 Alkaline Phosphatase 283 Units/L (38-126) H 06/17/17 03:00 Creatine Kinase 200 Units/L (29-168) H 06/01/17 03:06 Troponin I 0.36 ng/mL (0-0.03) H* 05/29/17 15:53 Albumin 2.0 g/dL (3.5-5.0) L 06/17/17 03:00 Globulin 4.1 g/dL (2.4-3.5) H 06/17/17 03:00 Albumin/Globulin Ratio 0.5 (1.1-2.2) L 06/17/17 03:00 Urine Clarity Hazy (Clear) A 05/29/17 18:15 Ur Specific [place] 1.026 (1.010-1.025) H 05/29/17 18:15 Urine Protein 30 mg/dL (Neg-Trace) H 05/29/17 18:15 Urine Ketones Trace mg/dL (Negative) H 05/29/17 18:15 Urine Bilirubin Small (Negative) H 05/29/17 18:15 Urine Microscopic WBC 15-30 per hpf (0-3) H 05/29/17 18:15 Ur Squamous Epith Cells Many per lpf (None-Few) H 05/29/17 18:15 Amorphous Sediment Moderate (Few) H 05/29/17 18:15 Urine Bacteria Moderate per hpf (None-Few) H 05/29/17 18:15 Hyaline Casts Moderate per lpf (None-Few) H 05/29/17 18:15 Ur Culture Indicated? YES (NO) A 05/29/17 18:15 - Microbiology Findings Microbiology Findings: Microbiology, Last 48 Hours 06/15/17 13:29 Blood Culture - Preliminary Peripheral Venipuncture No growth. 06/15/17 13:29 Blood Culture - Preliminary Peripheral Venipuncture No growth. - Clinical Findings Intake & Output: Intake & Output 06/16/17 06/17/17 06/17/17 23:59 07:59 15:59 Intake Total 198 / 198 352 / 352 0 / 0 Output Total 150 / 150 300 / 300 Balance 48 / 48 52 / 52 0 / 0 - VTE Documentation of Mechanical Device: Intermittent pneumatic compression device Consult Discharge Plan - Plan Referrals: Mi Warren, [facility] [Advanced Practice Nurse] - (computers are down call back later )
[2017-06-17] MEDS: Nystatin OINT 15 GM TUBE TP SCH ×4 (09:42→20:09)
[2017-06-17] MEDS ORDERED: 0.9 % Sodium Chloride 500 ML ONE (10:36)
[2017-06-17] MEDS ORDERED: *HR* Midazolam HCl 2 MG/2 ML VIAL ONE (11:15)
[2017-06-17] MEDS ORDERED: *HR* FentaNYL (PF) 100 MCG/2 ML VIAL IVP ONE (11:36)
[2017-06-17] MEDS ORDERED: *HR* Midazolam HCl 2 MG/2 ML VIAL IVP ONE (11:38)
[2017-06-17] MEDS ORDERED: *HR* Heparin 5,000 UNIT/ML VIAL ONE (11:51)
--- NOTE | 2017-06-17 12:13 | Event Note ---
Date of Encounter: 06/17/17 Time of Encounter: 08:55 Patient examined, chart and all data reviewed as well as recent imaging studies. Overnight, there has been a modest improvement in urine output with combined levo fed and milrinone infusion administration. However, biochemical parameters of renal function continued to worsen and the patient also has borderline hyperkalemia. Per discussion with nephrology service, it is anticipated the patient will require repeat dialytic support (provided earlier during the same hospitalization). As outlined in Dr. Gomez's comprehensive progress note, I agree with the provisions of care, his findings on physical examination and his management plans. Management was reviewed during multidisciplinary critical care rounds. I anticipate continuing ventilatory support in this individual until a firm plan is in place per discussion with family regarding agreement to proceed with tracheostomy and chronic ventilatory support. If this is not desired then the patient's CODE STATUS should be that of comfort care and non-aggressive medical support should be provided. E Dex [phone]
--- NOTE | 2017-06-17 12:16 | Procedure Note ---
Date of procedure: 06/17/17 Pre-op diagnosis: Acute kidney injury Post-op diagnosis: same Procedure: A right internal jugular temporary hemodialysis catheter was placed. Using sterile maximal barrier technique, ultrasound guidance and sterile Seldinger technique, the catheter was placed without difficulty. The ports were flushed the device was sutured into position. Dr. Domenico Gomez performed this procedure without difficulty under my direct supervision.
[2017-06-17] MEDS: Pantoprazole 40 MG VIAL IVP SCH (12:18)
[2017-06-17] MEDS: Insulin LISPRO 300 UNITS/3 ML VIAL SQ SCH ×3 (12:41→20:07)
[2017-06-17] MEDS ORDERED: 0.9 % Sodium Chloride 250 ML IVC PRN (12:55)
[2017-06-17] MEDS ORDERED: 0.9 % Sodium Chloride 1,000 ML PRIME SCH (13:00)
[2017-06-18] MEDS: Lacri-Lube 3.5 GM TUBE BOTH EYES SCH ×7 (01:30→23:44)
[2017-06-18] MEDS: Insulin LISPRO 300 UNITS/3 ML VIAL SQ SCH ×7 (01:30→23:44)
[2017-06-18] MEDS: Dexmedetomidine HCl 400 MCG/100 ML MLS IVC SCH ×5 (03:55→21:48)
[2017-06-18 04:14] LABS: Basophils % 0.1 %; Hematocrit 27.8 % (35.3-44.9); Hemoglobin 8.4 g/dL (11.5-15.4); Immature Granulocytes % 1.5 % (0-4); Lymphocytes # 0.6 K/mcL (0.6-4.6); Lymphocytes % 4.2 %; Mean Corpuscular HGB Conc 30.2 g/dL (31.6-35.5); Mean Corpuscular Hemoglobin 28.6 pg (28.0-33.3); Mean Corpuscular Volume 94.6 fL (83.0-100.0); Mean Platelet Volume 12.2 fL (9.4-12.4); Monocytes # 1.3 K/mcL (0.0-1.3); Monocytes % 9.4 %; Neutrophils # 12.2 K/mcL (1.6-8.9); Platelet Count 220 K/mcL (140-400); Red Blood Count 2.94 M/mcL (3.82-4.97); Red Cell Distribution Width 17.7 % (11.5-14.5); Segmented Neutrophils % 84.8 %
[2017-06-18 04:24] LABS: Ionized Calcium 1.13 mmol/L (1.15-1.35)
[2017-06-18 04:36] LABS: Albumin/Globulin Ratio 0.4 (1.1-2.2); Bilirubin,Direct 1.4 mg/dL (0.0-0.5); Bilirubin,Indirect 0.4 mg/dL (0.0-1.2); Bilirubin,Total 1.8 mg/dL (0.2-1.2); Globulin 3.8 g/dL (2.4-3.5); Magnesium 1.4 mg/dL (1.6-2.6); Phosphorous 3.7 mg/dL (2.3-4.7); Potassium 4.4 mEq/L (3.5-4.5); Total Protein 5.5 g/dL (6.0-8.3)
[2017-06-18 04:38] LABS: Albumin 1.7 g/dL (3.5-5.0)
[2017-06-18 05:03] LABS: ABG Base Excess 16.7 mEq/L (-2.0 to 3.0); ABG Oxygen Saturation 91 % (95-98); ABG PO2 60 mmHg (85-104); ABG TCO2 46.2 mEq/L (20-26)
[2017-06-18] MEDS: MILRINONE 20 MG/100 ML IVC SCH ×3 (05:06→23:42)
[2017-06-18] MEDS: *HR* Heparin 5,000 UNIT/ML VIAL SQ SCH ×3 (05:09→21:51)
[2017-06-18 05:11] LABS: Blood Gas FiO2 60 %
[2017-06-18 05:12] LABS: ABG PCO2 71 mmHg (35-45)
[2017-06-18] MEDS: *HR* FentaNYL (PF) 100 MCG/2 ML VIAL IVP PRN ×6 (07:01→23:43)
[2017-06-18] MEDS: Budesonide/Formoterol 160/4.5 MDI IH SCH ×2 (07:31→19:43)
[2017-06-18] MEDS: Pantoprazole 40 MG VIAL IVP SCH (08:45)
[2017-06-18] MEDS: Aspirin 81 MG TAB.CHEW PO SCH (08:45)
[2017-06-18] MEDS: Chlorhexidine Rinse 15 ML MOUTHWASH MM SCH ×2 (08:45→19:41)
[2017-06-18] MEDS: Docusate Oral Soln 100 MG/10 ML UDC PO SCH ×2 (08:45→19:41)
[2017-06-18] MEDS: Cholecalciferol (D-3) 1,000 UNIT TABLET PO SCH (08:45)
[2017-06-18] MEDS: Nystatin OINT 15 GM TUBE TP SCH ×4 (08:48→19:42)
[2017-06-18] MEDS: Nystatin POWDER 30 GM BOTTLE TP SCH ×2 (08:48→19:41)
--- NOTE | 2017-06-18 09:08 | Pulmonology Progress Note ---
<NicoleDomenico nguyen - Last Filed: 06/18/17 09:03> Date of Encounter: 06/18/17 Time of Encounter: 09:03 Assessment and Plan (1) Acute and chronic respiratory failure Current Visit: Yes Status: Acute In the setting of obesity hypoventilation syndrome with right-sided heart failure and cor pulmonale. Patient had an extended stay in the intensive care unit recently and had been on the medical floor for the last several days. Patient became short of breath and somnolent and ABG revealed an acute on chronic hypercapnic respiratory acidosis. She remains on ventilatory support. ABG shows acceptable for oxygenation and ventilation with a chronic hypercapnia. Patient remains in acute kidney injury. Urine output has improved slightly however the patient remains oliguric. Nephrology is following. Patient underwent intermittent HD yesterday. Plan is for a session of HD today as well as ultrafiltration. Initially antibiotics were initiated however there is no clear source of infection. Patient does have a mild leukocytosis that continues to improve, likely related to underlying stress in the setting of critical illness. Blood cultures are negative. We will hold off on further antibiotics at this time. We were able to talk to the patient today about her wishes regarding tracheostomy and long-term mechanical ventilation which she would likely need given her severe obesity hypoventilation syndrome. Patient is agreeable to tracheostomy placement and long-term mechanical ventilation. If unable to extubate safely we will likely proceed with tracheostomy in the near future. Qualifiers: Respiratory failure complication: hypoxia and hypercapnia Qualified Code(s) : J96.21 - Acute and chronic respiratory failure with hypoxia; J96.22 - Acute and chronic respiratory failure with hypercapnia (2) Acute on chronic renal failure Current Visit: Yes Status: Acute Qualifiers: Acute renal failure type: unspecified Chronic kidney disease stage: stage 3 (moderate) Qualified Code(s): N17.9 - Acute kidney failure, unspecified; N18.3 - Chronic kidney disease, stage 3 (moderate) (3) Chronic systolic (congestive) heart failure Current Visit: Yes Status: Chronic (4) Cor pulmonale Current Visit: Yes Status: Acute (5) Moderate to severe pulmonary hypertension Current Visit: Yes Status: Chronic (6) Morbid obesity with BMI of 50.0-59.9, adult Current Visit: No Status: Chronic (7) SMITA treated with BiPAP Current Visit: Yes Status: Chronic Subjective Principal diagnosis: Respiratory insufficiency Interval history: Patient seen and examined at bedside. Patient is intubated and mildly sedated. We will follow commands and answer questions appropriately. No evidence of acute distress. No acute events overnight. Objective PUL Vital signs: Last Vital Signs Temp 98.9 F 06/18/17 07:48 Pulse 89 06/18/17 06:00 Resp 19 06/18/17 07:32 BP 81/52 06/18/17 06:00 Pulse Ox 92 06/18/17 07:32 General appearance: no acute distress ENT: oropharynx moist Auscultation: bilateral: diminished breath sounds Cardiovascular: regular rate and rhythm Gastrointestinal: hypoactive bowel sounds, soft, non-tender, non-distended Extremities: no cyanosis, no clubbing, edema (2+) pupils equal and round, unable to assess due to mental status (Patient remains intubated and mildly sedated but is able to wake up to verbal stimuli and follows commands. She answers questions appropriately.) Ventilator Settings Ventilator Settings: Ventilator Settings, Last 8 Hours Ventilator Mode VC+ Ventilator Mode VC+ Ventilator Mode VC+ Ventilator Mode VC+ Ventilator Mode VC+ Ventilator Mode VC+ Ventilator Mode VC+ Ventilator Mode VC+ Ventilator Mode VC+ Ventilator Mode VC+ Ventilator Tidal Volume 300 Setting Ventilator Tidal Volume 300 Setting Ventilator Tidal Volume 300 Setting Ventilator Tidal Volume 300 Setting Ventilator Tidal Volume 300 Setting Ventilator Tidal Volume 300 Setting Ventilator Tidal Volume 300 Setting Ventilator Tidal Volume 300 Setting Ventilator Tidal Volume 300 Setting Ventilator Tidal Volume 300 Setting Ventilator Respiratory Rate 12 Setting Ventilator Respiratory Rate 12 Setting Ventilator Respiratory Rate 12 Setting Ventilator Respiratory Rate 12 Setting Ventilator Respiratory Rate 12 Setting Ventilator Respiratory Rate 12 Setting Ventilator Respiratory Rate 12 Setting Ventilator Respiratory Rate 12 Setting Ventilator Respiratory Rate 12 Setting Ventilator Respiratory Rate 12 Setting Actual Respiratory Rate 23 Actual Respiratory Rate 25 Actual Respiratory Rate 25 Actual Respiratory Rate 26 Positive End Expiratory 5 Pressure Positive End Expiratory 5 Pressure Positive End Expiratory 5 Pressure Positive End Expiratory 5 Pressure Positive End Expiratory 5 Pressure Positive End Expiratory 5 Pressure Positive End Expiratory 5 Pressure Positive End Expiratory 5 Pressure Positive End Expiratory 5 Pressure Positive End Expiratory 5 Pressure Peak Inspiratory Airway 11 Pressure Peak Inspiratory Airway 12 Pressure Peak Inspiratory Airway 11 Pressure Peak Inspiratory Airway 11 Pressure Results - Laboratory Findings CBC and BMP: 06/18/17 04:00 06/18/17 04:00 ABG ABG pH 7.40 pH Units (7.32-7.45) 06/18/17 04:54 ABG pCO2 71 mmHg (35-45) H* 06/18/17 04:54 ABG pO2 60 mmHg (85-104) L 06/18/17 04:54 ABG O2 Saturation 91 % (95-98) L 06/18/17 04:54 PT/INR, D-dimer PT 13.2 Seconds (9.4-12.1) H 06/12/17 01:02 Abnormal lab findings: Abnormal lab results WBC 14.3 K/mcL (4.3-11.1) H 06/18/17 04:00 RBC 2.94 M/mcL (3.82-4.97) L 06/18/17 04:00 Hgb 8.4 g/dL (11.5-15.4) L 06/18/17 04:00 Hct 27.8 % (35.3-44.9) L 06/18/17 04:00 MCHC 30.2 g/dL (31.6-35.5) L 06/18/17 04:00 RDW 17.7 % (11.5-14.5) H 06/18/17 04:00 Neutrophils # 12.2 K/mcL (1.6-8.9) H 06/18/17 04:00 Nucleated RBCs/100 WBC 0.3 /100 WBC (0) H 06/03/17 04:00 Reactive Lymphocytes Present (Not Present) A 06/01/17 03:30 Large Platelets Present (Not Present) A 06/17/17 03:00 Immature Plt Fraction 10.6 % (1.1-6.1) H 06/06/17 04:40 Polychromasia 1+ (Not Present) A 06/01/17 03:30 Hypochromasia Present (Not Present) A 06/17/17 03:00 Basophilic Stippling 1+ (Not Present) A 06/01/17 03:30 Anisocytosis 2+ (Not Present) A 06/15/17 05:53 Microcytosis Present (Not Present) A 06/17/17 03:00 Macrocytosis Present (Not Present) A 06/17/17 03:00 PT 13.2 Seconds (9.4-12.1) H 06/12/17 01:02 APTT 36.4 Seconds (26.0-36.0) H 06/12/17 01:02 ABG pCO2 71 mmHg (35-45) H* 06/18/17 04:54 ABG pO2 60 mmHg (85-104) L 06/18/17 04:54 ABG HCO3 44.0 mEQ/L (21-27) H 06/18/17 04:54 ABG Total CO2 46.2 mEq/L (20-26) H 06/18/17 04:54 ABG O2 Saturation 91 % (95-98) L 06/18/17 04:54 ABG Base Excess 16.7 mEq/L (-2.0 to 3.0) H 06/18/17 04:54 VBG pH 7.50 pH Units (7.32-7.42) H 05/31/17 21:46 VBG pO2 202 mmHg (25-40) H 05/31/17 21:46 VBG HCO3 36.7 mEq/L (21-27) H 05/31/17 21:46 Mixed VBG pH 7.29 (7.34-7.36) L 05/31/17 21:46 Mixed VBG pCO2 89 mmHg (44-46) H 05/31/17 21:46 Mixed VBG pO2 73 mmHg (35-45) H 05/31/17 21:46 Mixed VBG Oxyhemoglobin 93.0 % (60-80) H 05/31/17 21:46 Sodium 134 mEq/L (136-145) L 06/18/17 04:00 Chloride 90 mEq/L (98-109) L 06/18/17 04:00 Carbon Dioxide 39 mEq/L (19-29) H 06/18/17 04:00 BUN 40 mg/dL (7-20) H 06/18/17 04:00 Creatinine 2.30 mg/dL (0.57-1.11) H 06/18/17 04:00 Est GFR ( Amer) 28 (> 60) L 06/18/17 04:00 Est GFR (Non-Af Amer) 23 (> 60) L 06/18/17 04:00 Glucose 170 mg/dL (70-99) H 06/18/17 04:00 POC Glucose 134 (58-89) H 06/18/17 07:18 Ionized Calcium 1.13 mmol/L (1.15-1.35) L 06/18/17 04:00 Magnesium 1.4 mg/dL (1.6-2.6) L 06/18/17 04:00 Total Bilirubin 1.8 mg/dL (0.2-1.2) H 06/18/17 04:00 Direct Bilirubin 1.4 mg/dL (0.0-0.5) H 06/18/17 04:00 Alkaline Phosphatase 251 Units/L (38-126) H 06/18/17 04:00 Creatine Kinase 200 Units/L (29-168) H 06/01/17 03:06 Troponin I 0.36 ng/mL (0-0.03) H* 05/29/17 15:53 Serum Total Protein 5.5 g/dL (6.0-8.3) L 06/18/17 04:00 Albumin 1.7 g/dL (3.5-5.0) L 06/18/17 04:00 Globulin 3.8 g/dL (2.4-3.5) H 06/18/17 04:00 Albumin/Globulin Ratio 0.4 (1.1-2.2) L 06/18/17 04:00 Urine Clarity Hazy (Clear) A 05/29/17 18:15 Ur Specific [place] 1.026 (1.010-1.025) H 05/29/17 18:15 Urine Protein 30 mg/dL (Neg-Trace) H 05/29/17 18:15 Urine Ketones Trace mg/dL (Negative) H 05/29/17 18:15 Urine Bilirubin Small (Negative) H 05/29/17 18:15 Urine Microscopic WBC 15-30 per hpf (0-3) H 05/29/17 18:15 Ur Squamous Epith Cells Many per lpf (None-Few) H 05/29/17 18:15 Amorphous Sediment Moderate (Few) H 05/29/17 18:15 Urine Bacteria Moderate per hpf (None-Few) H 05/29/17 18:15 Hyaline Casts Moderate per lpf (None-Few) H 05/29/17 18:15 Ur Culture Indicated? YES (NO) A 05/29/17 18:15 - Microbiology Findings Microbiology Findings: Microbiology, Last 48 Hours 06/15/17 13:29 Blood Culture - Preliminary Peripheral Venipuncture No growth. 06/15/17 13:29 Blood Culture - Preliminary Peripheral Venipuncture No growth. - Clinical Findings Intake & Output: Intake & Output 06/17/17 06/18/17 06/18/17 23:59 07:59 15:59 Intake Total 950 / 950 637 / 637 100 / 100 Output Total 975 / 975 200 / 200 Balance -25 / -25 437 / 437 100 / 100 Weight 140.2 kg - VTE Documentation of Mechanical Device: Intermittent pneumatic compression device Consult Discharge Plan - Plan Referrals: Mi Warren, H[facility] BINDER [Advanced Practice Nurse] - (computers are down call back later ) <Emre Kowalski - Last Filed: 06/18/17 09:30> Date of Encounter: 06/18/17 Objective PUL Vital signs: Last Vital Signs Temp 98.9 F 06/18/17 08:00 Pulse 96 06/18/17 09:13 Resp 22 06/18/17 09:13 BP 91/58 06/18/17 09:13 Pulse Ox 92 06/18/17 09:13 Ventilator Settings Ventilator Settings: Ventilator Settings, Last 8 Hours Ventilator Mode VC+ Ventilator Mode VC+ Ventilator Mode VC+ Ventilator Mode VC+ Ventilator Mode VC+ Ventilator Mode VC+ Ventilator Mode VC+ Ventilator Mode VC+ Ventilator Mode VC+ Ventilator Mode VC+ Ventilator Mode VC+ Ventilator Mode VC+ Ventilator Mode VC+ Ventilator Tidal Volume 300 Setting Ventilator Tidal Volume 300 Setting Ventilator Tidal Volume 300 Setting Ventilator Tidal Volume 300 Setting Ventilator Tidal Volume 300 Setting Ventilator Tidal Volume 300 Setting Ventilator Tidal Volume 300 Setting Ventilator Tidal Volume 300 Setting Ventilator Tidal Volume 300 Setting Ventilator Tidal Volume 300 Setting Ventilator Tidal Volume 300 Setting Ventilator Tidal Volume 300 Setting Ventilator Tidal Volume 300 Setting Ventilator Respiratory Rate 12 Setting Ventilator Respiratory Rate 12 Setting Ventilator Respiratory Rate 12 Setting Ventilator Respiratory Rate 12 Setting Ventilator Respiratory Rate 12 Setting Ventilator Respiratory Rate 12 Setting Ventilator Respiratory Rate 12 Setting Ventilator Respiratory Rate 12 Setting Ventilator Respiratory Rate 12 Setting Ventilator Respiratory Rate 12 Setting Ventilator Respiratory Rate 12 Setting Ventilator Respiratory Rate 12 Setting Ventilator Respiratory Rate 12 Setting Actual Respiratory Rate 23 Actual Respiratory Rate 23 Actual Respiratory Rate 23 Actual Respiratory Rate 23 Actual Respiratory Rate 25 Actual Respiratory Rate 25 Actual Respiratory Rate 26 Positive End Expiratory 5 Pressure Positive End Expiratory 5 Pressure Positive End Expiratory 5 Pressure Positive End Expiratory 5 Pressure Positive End Expiratory 5 Pressure Positive End Expiratory 5 Pressure Positive End Expiratory 5 Pressure Positive End Expiratory 5 Pressure Positive End Expiratory 5 Pressure Positive End Expiratory 5 Pressure Positive End Expiratory 5 Pressure Positive End Expiratory 5 Pressure Positive End Expiratory 5 Pressure Peak Inspiratory Airway 11 Pressure Peak Inspiratory Airway 11 Pressure Peak Inspiratory Airway 11 Pressure Peak Inspiratory Airway 11 Pressure Peak Inspiratory Airway 12 Pressure Peak Inspiratory Airway 11 Pressure Peak Inspiratory Airway 11 Pressure Results - Laboratory Findings CBC and BMP: 06/18/17 04:00 06/18/17 04:00 ABG ABG pH 7.40 pH Units (7.32-7.45) 06/18/17 04:54 ABG pCO2 71 mmHg (35-45) H* 06/18/17 04:54 ABG pO2 60 mmHg (85-104) L 06/18/17 04:54 ABG O2 Saturation 91 % (95-98) L 06/18/17 04:54 PT/INR, D-dimer PT 13.2 Seconds (9.4-12.1) H 06/12/17 01:02 Abnormal lab findings: Abnormal lab results WBC 14.3 K/mcL (4.3-11.1) H 06/18/17 04:00 RBC 2.94 M/mcL (3.82-4.97) L 06/18/17 04:00 Hgb 8.4 g/dL (11.5-15.4) L 06/18/17 04:00 Hct 27.8 % (35.3-44.9) L 06/18/17 04:00 MCHC 30.2 g/dL (31.6-35.5) L 06/18/17 04:00 RDW 17.7 % (11.5-14.5) H 06/18/17 04:00 Neutrophils # 12.2 K/mcL (1.6-8.9) H 06/18/17 04:00 Nucleated RBCs/100 WBC 0.3 /100 WBC (0) H 06/03/17 04:00 Reactive Lymphocytes Present (Not Present) A 06/01/17 03:30 Large Platelets Present (Not Present) A 06/17/17 03:00 Immature Plt Fraction 10.6 % (1.1-6.1) H 06/06/17 04:40 Polychromasia 1+ (Not Present) A 06/01/17 03:30 Hypochromasia Present (Not Present) A 06/17/17 03:00 Basophilic Stippling 1+ (Not Present) A 06/01/17 03:30 Anisocytosis 2+ (Not Present) A 06/15/17 05:53 Microcytosis Present (Not Present) A 06/17/17 03:00 Macrocytosis Present (Not Present) A 06/17/17 03:00 PT 13.2 Seconds (9.4-12.1) H 06/12/17 01:02 APTT 36.4 Seconds (26.0-36.0) H 06/12/17 01:02 ABG pCO2 71 mmHg (35-45) H* 06/18/17 04:54 ABG pO2 60 mmHg (85-104) L 06/18/17 04:54 ABG HCO3 44.0 mEQ/L (21-27) H 06/18/17 04:54 ABG Total CO2 46.2 mEq/L (20-26) H 06/18/17 04:54 ABG O2 Saturation 91 % (95-98) L 06/18/17 04:54 ABG Base Excess 16.7 mEq/L (-2.0 to 3.0) H 06/18/17 04:54 VBG pH 7.50 pH Units (7.32-7.42) H 05/31/17 21:46 VBG pO2 202 mmHg (25-40) H 05/31/17 21:46 VBG HCO3 36.7 mEq/L (21-27) H 05/31/17 21:46 Mixed VBG pH 7.29 (7.34-7.36) L 05/31/17 21:46 Mixed VBG pCO2 89 mmHg (44-46) H 05/31/17 21:46 Mixed VBG pO2 73 mmHg (35-45) H 05/31/17 21:46 Mixed VBG Oxyhemoglobin 93.0 % (60-80) H 05/31/17 21:46 Sodium 134 mEq/L (136-145) L 06/18/17 04:00 Chloride 90 mEq/L (98-109) L 06/18/17 04:00 Carbon Dioxide 39 mEq/L (19-29) H 06/18/17 04:00 BUN 40 mg/dL (7-20) H 06/18/17 04:00 Creatinine 2.30 mg/dL (0.57-1.11) H 06/18/17 04:00 Est GFR ( Amer) 28 (> 60) L 06/18/17 04:00 Est GFR (Non-Af Amer) 23 (> 60) L 06/18/17 04:00 Glucose 170 mg/dL (70-99) H 06/18/17 04:00 POC Glucose 134 (58-89) H 06/18/17 07:18 Ionized Calcium 1.13 mmol/L (1.15-1.35) L 06/18/17 04:00 Magnesium 1.4 mg/dL (1.6-2.6) L 06/18/17 04:00 Total Bilirubin 1.8 mg/dL (0.2-1.2) H 06/18/17 04:00 Direct Bilirubin 1.4 mg/dL (0.0-0.5) H 06/18/17 04:00 Alkaline Phosphatase 251 Units/L (38-126) H 06/18/17 04:00 Creatine Kinase 200 Units/L (29-168) H 06/01/17 03:06 Troponin I 0.36 ng/mL (0-0.03) H* 05/29/17 15:53 Serum Total Protein 5.5 g/dL (6.0-8.3) L 06/18/17 04:00 Albumin 1.7 g/dL (3.5-5.0) L 06/18/17 04:00 Globulin 3.8 g/dL (2.4-3.5) H 06/18/17 04:00 Albumin/Globulin Ratio 0.4 (1.1-2.2) L 06/18/17 04:00 Urine Clarity Hazy (Clear) A 05/29/17 18:15 Ur Specific [place] 1.026 (1.010-1.025) H 05/29/17 18:15 Urine Protein 30 mg/dL (Neg-Trace) H 05/29/17 18:15 Urine Ketones Trace mg/dL (Negative) H 05/29/17 18:15 Urine Bilirubin Small (Negative) H 05/29/17 18:15 Urine Microscopic WBC 15-30 per hpf (0-3) H 05/29/17 18:15 Ur Squamous Epith Cells Many per lpf (None-Few) H 05/29/17 18:15 Amorphous Sediment Moderate (Few) H 05/29/17 18:15 Urine Bacteria Moderate per hpf (None-Few) H 05/29/17 18:15 Hyaline Casts Moderate per lpf (None-Few) H 05/29/17 18:15 Ur Culture Indicated? YES (NO) A 05/29/17 18:15 - Microbiology Findings Microbiology Findings: Microbiology, Last 48 Hours 06/15/17 13:29 Blood Culture - Preliminary Peripheral Venipuncture No growth. 06/15/17 13:29 Blood Culture - Preliminary Peripheral Venipuncture No growth. - Clinical Findings Intake & Output: Intake & Output 06/17/17 06/18/17 06/18/17 23:59 07:59 15:59 Intake Total 950 / 950 637 / 637 286 / 286 Output Total 975 / 975 200 / 200 Balance -25 / -25 437 / 437 286 / 286 Weight 140.2 kg
[2017-06-18] MEDS ORDERED: *HR* Heparin 10,000 UNIT/10 ML VIAL IV PRN (11:40)
[2017-06-18] MEDS ORDERED: 0.9 % Sodium Chloride 250 ML IVC PRN (11:40)
[2017-06-18] MEDS ORDERED: Albumin 25% 25gram/100mL 25 GM/100 ML IV.SOLN IVPB PRN (11:45)
[2017-06-18] MEDS ORDERED: 0.9 % Sodium Chloride 2,000 ML ONE (12:24)
--- NOTE | 2017-06-18 12:36 | Nephrology Progress Note ---
Date of Encounter: 06/18/17 Time of Encounter: 12:00 - Assessment and Plan (1) BLANCA (acute kidney injury) Current Visit: Yes Status: Acute s/p first HD yesterday. Second session planned today UF goal of 2 kg and will use albumin prn Will reassess daily for HD need Avoid nephrotoxins if possible Maintain stable hemodynamics if possible UOP improved as of yesterday, will monitor Discussed in [facility] details plan of care with patient, family and nurse critical care time spent approx. 40mins (2) Acute and chronic respiratory failure Current Visit: Yes Status: Acute Per primary team on biPAP with possible trach planned Qualifiers: Respiratory failure complication: hypoxia and hypercapnia Qualified Code(s) : J96.21 - Acute and chronic respiratory failure with hypoxia; J96.22 - Acute and chronic respiratory failure with hypercapnia (3) Hyperkalemia Current Visit: Yes Status: Acute Potassium improved and normalized from 5 to 4.4 after first session of HD (4) Anemia Current Visit: No Status: Acute Hgb low and trending downward at 8.4 Transfusion parameters per primary team Qualifiers: Anemia type: unspecified type Qualified Code(s): D64.9 - Anemia, unspecified Subjective Principal diagnosis: Respiratory insufficiency Interval history: Interim events noted. Pt seen by Dr bravo and started on NURSE LDR yesterday after reconsult due to BLANCA and volume overload. Pt seen and examined today intubated and awake and responsive. family members at bedside and seem to be accepting need for trach. Milronone gtt, levo at 2mcg, precedex gtt and vital feeds noted. BPs readings noted at 90/50s. Objective - Vital Signs Vital signs: Vital Signs Temp Pulse Resp BP Pulse Ox 06/18/17 11:40 23 93 06/18/17 11:00 99.3 F 95 20 92/52 92 06/18/17 10:00 96 21 90/56 92 06/18/17 09:59 20 92 06/18/17 09:13 96 22 91/58 92 06/18/17 09:00 96 22 100/59 92 06/18/17 08:00 98.9 F 87 22 91/58 92 06/18/17 07:48 98.9 F 06/18/17 07:32 19 92 06/18/17 07:00 85 23 79/48 92 06/18/17 06:04 25 92 06/18/17 06:00 89 20 81/52 92 06/18/17 05:00 87 18 81/49 93 06/18/17 04:40 98.7 F 06/18/17 04:00 93 19 94/61 92 06/18/17 03:48 25 105/60 92 06/18/17 03:00 88 16 105/61 93 06/18/17 02:00 91 17 96/59 93 06/18/17 01:58 26 90/64 93 06/18/17 01:00 82 18 95/61 92 06/18/17 00:00 84 16 96/55 93 06/17/17 23:59 99.0 F 06/17/17 23:49 21 100/54 92 06/17/17 23:00 82 18 98/58 93 06/17/17 22:00 85 15 93/52 94 06/17/17 21:49 22 81/43 93 06/17/17 21:00 86 17 113/66 93 06/17/17 20:29 100 F H 06/17/17 20:10 92 19 100/59 92 06/17/17 19:39 21 92 06/17/17 19:23 99.1 F 20 98/56 06/17/17 19:10 87 18 84/52 92 06/17/17 18:30 93/60 06/17/17 18:15 95/60 06/17/17 18:00 85 23 97/54 92 06/17/17 17:45 91/57 06/17/17 17:30 95/61 06/17/17 17:15 99/58 06/17/17 17:06 12 98/59 92 06/17/17 17:00 88 22 99/56 92 06/17/17 16:45 98/55 06/17/17 16:30 99.2 F 20 102/61 06/17/17 16:00 85 21 104/64 92 06/17/17 15:19 18 102/59 91 06/17/17 15:00 98.4 F 86 17 96/57 90 06/17/17 14:00 85 18 97/58 90 06/17/17 13:53 20 100/61 91 06/17/17 13:00 89 21 100/60 90 Intake and Output 06/17/17 06/18/17 06/18/17 23:59 07:59 15:59 Intake Total 950 / 950 637 / 637 286 / 286 Output Total 975 / 975 200 / 200 100 / 100 Balance -25 / -25 437 / 437 186 / 186 Intake: IV Fluids 350 / 350 360 / 360 100 / 100 PRECEDEX 400 mcg In 100 200 / 200 100 / 100 100 / 100 ml @ 0.3 MCG/KG/HR 10.358 mls/hr IVC .Q9H40M [place] Rx#:[id number] Primacor Premix 20 MG/100 100 / 100 100 / 100 ML 20 mg In 100 ml @ 0. 25 MCG/KG/MIN 10.358 mls/ hr IVC .Q9H40M [place] Rx#: [id number] Levophed 4 MG In Dextrose 50 / 50 160 / 160 5% 250 ML @ 5 MCG/MIN 18 .75 mls/hr IVC CONT [place] Rx#:[id number] Oral 0 / 0 Tube Feeding 277 / 277 186 / 186 Intake, Rinseback and 600 / 600 Flushes Output: Urine 0 / 0 Total Dialysis (HD) 600 / 600 Output Catheter 375 / 375 200 / 200 100 / 100 Other: Weight 140.2 kg Blood Glucose* 121 134 168 Hemodialysis Net Fluid 0 Removed (mL) - General Appearance General appearance: Present: chronically ill, intubated EENT: Present: ATNC, mucous membranes moist Neck: Present: no JVD, supple Respiratory: Present: course breath sounds Cardiology: Present: edema (LE bilat extending to abdomen) Dialysis Vascular Access: Venous Catheter Gastrointestinal: Present: no tenderness, no guarding, obese, distended Integumentary: Present: warm and dry Additional Comments: awake and communicative though intubated Musculoskeletal: Present: no deformities Psychiatric: Present: cooperative - Lab 06/18/17 04:00 06/18/17 04:00 Most recent lab results ABG pH 7.40 pH Units (7.32-7.45) 06/18/17 04:54 ABG pCO2 71 mmHg (35-45) H* 06/18/17 04:54 ABG pO2 60 mmHg (85-104) L 06/18/17 04:54 ABG HCO3 44.0 mEQ/L (21-27) H 06/18/17 04:54 ABG O2 Saturation 91 % (95-98) L 06/18/17 04:54 Calcium 9.0 mg/dL (8.6-10.8) 06/18/17 04:00 Phosphorus 3.7 mg/dL (2.3-4.7) 06/18/17 04:00 Magnesium 1.4 mg/dL (1.6-2.6) L 06/18/17 04:00 Urine Creatinine 88 mg/dL 06/17/17 07:15 Urine Sodium 27.0 mEq/L 06/17/17 07:15 - VTE Documentation of Mechanical Device: Intermittent pneumatic compression device Consult Discharge Plan - Plan Referrals: Mi Warren, G[facility]MENT SEW[facility] [Advanced Practice Nurse] - (computers are down call back later )
[2017-06-19] MEDS: Dexmedetomidine HCl 400 MCG/100 ML MLS IVC SCH ×7 (01:02→21:17)
[2017-06-19] MEDS: *HR* FentaNYL (PF) 100 MCG/2 ML VIAL IVP PRN ×12 (01:02→23:22)
[2017-06-19 04:01] LABS: Ionized Calcium 1.18 mmol/L (1.15-1.35)
[2017-06-19] MEDS: Lacri-Lube 3.5 GM TUBE BOTH EYES SCH ×6 (04:03→23:24)
[2017-06-19] MEDS: Insulin LISPRO 300 UNITS/3 ML VIAL SQ SCH ×6 (04:03→23:22)
[2017-06-19 04:09] LABS: Albumin/Globulin Ratio 0.4 (1.1-2.2); Basophils % 0.2 %; Bilirubin,Indirect 0.6 mg/dL (0.0-1.2); Bilirubin,Total 1.6 mg/dL (0.2-1.2); Calcium 8.9 mg/dL (8.6-10.8); Eosinophils % 0.3 %; Globulin 4.1 g/dL (2.4-3.5); Hematocrit 26.5 % (35.3-44.9); Hemoglobin 7.9 g/dL (11.5-15.4); Immature Granulocytes % 2.5 % (0-4); Lymphocytes # 0.8 K/mcL (0.6-4.6); Lymphocytes % 7.1 %; Magnesium 1.5 mg/dL (1.6-2.6); Mean Corpuscular HGB Conc 29.8 g/dL (31.6-35.5); Mean Corpuscular Hemoglobin 28.1 pg (28.0-33.3); Mean Corpuscular Volume 94.3 fL (83.0-100.0); Mean Platelet Volume 11.9 fL (9.4-12.4); Monocytes # 1.2 K/mcL (0.0-1.3); Neutrophils # 9.3 K/mcL (1.6-8.9); Phosphorous 2.8 mg/dL (2.3-4.7); Platelet Count 227 K/mcL (140-400); Potassium 4.2 mEq/L (3.5-4.5); Red Blood Count 2.81 M/mcL (3.82-4.97); Red Cell Distribution Width 17.7 % (11.5-14.5); Segmented Neutrophils % 79.9 %; Total Protein 5.7 g/dL (6.0-8.3)
[2017-06-19 04:10] LABS: Albumin 1.6 g/dL (3.5-5.0)
[2017-06-19] MEDS: *HR* Heparin 5,000 UNIT/ML VIAL SQ SCH ×3 (04:58→21:16)
[2017-06-19 04:59] LABS: ABG HCO3 41.2 mEQ/L (21-27); ABG Oxygen Saturation 92 % (95-98); ABG PCO2 65 mmHg (35-45); ABG PH 7.41 pH Units (7.32-7.45); ABG PO2 62 mmHg (85-104); ABG TCO2 43.2 mEq/L (20-26)
[2017-06-19] MEDS: Magnesium Sulfate 2 GM in D5% in Water 100 ML IVPB PRN (04:59)
[2017-06-19 05:00] LABS: Blood Gas FiO2 60 %
[2017-06-19] MEDS: Docusate Oral Soln 100 MG/10 ML UDC PO SCH ×2 (07:41→20:14)
[2017-06-19] MEDS: Chlorhexidine Rinse 15 ML MOUTHWASH MM SCH ×2 (07:41→20:05)
[2017-06-19] MEDS: Pantoprazole 40 MG VIAL IVP SCH (07:41)
[2017-06-19] MEDS: Aspirin 81 MG TAB.CHEW PO SCH (07:42)
[2017-06-19] MEDS: Cholecalciferol (D-3) 1,000 UNIT TABLET PO SCH (07:43)
[2017-06-19] MEDS: Bisacodyl 10 MG RECTAL SUPPOSITORY RC PRN (07:43)
[2017-06-19] MEDS: Nystatin POWDER 30 GM BOTTLE TP SCH ×2 (07:44→20:26)
[2017-06-19] MEDS: Nystatin OINT 15 GM TUBE TP SCH ×4 (07:44→20:26)
--- NOTE | 2017-06-19 08:03 | Pulmonology Progress Note ---
Date of Encounter: 06/19/17 Time of Encounter: 08:00 Assessment and Plan (1) Acute and chronic respiratory failure Current Visit: Yes Status: Acute In the setting of obesity hypoventilation syndrome with right-sided heart failure and cor pulmonale. Patient had an extended stay in the intensive care unit recently and had been on the medical floor for the last several days. Patient became short of breath and somnolent and ABG revealed an acute on chronic hypercapnic respiratory acidosis. She remains on ventilatory support. ABG shows acceptable for oxygenation and ventilation with a chronic hypercapnia. Patient remains in acute kidney injury. Urine output is minimal. Nephrology is following. Patient underwent UF yesterday. Further dialysis plans per nephrology. Initially antibiotics were initiated however there is no clear source of infection. Patient does have a mild leukocytosis that continues to improve, likely related to underlying stress in the setting of critical illness. Blood cultures are negative. We will hold off on further antibiotics at this time. Patient has mild diffuse abdominal tenderness which is been present since admission. Patient was initially evaluated for gallbladder disease but she appears to have gallstones without evidence of acute cholecystitis. Patient has had minimal bowel movements we will add MiraLAX and attempt to normalize her bowel function. Continue tube feeds. We were able to talk to the patient today about her wishes regarding tracheostomy and long-term mechanical ventilation which she would likely need given her severe obesity hypoventilation syndrome. Patient is agreeable to tracheostomy placement and long-term mechanical ventilation. If unable to extubate safely we will likely proceed with tracheostomy in the near future. Qualifiers: Respiratory failure complication: hypoxia and hypercapnia Qualified Code(s) : J96.21 - Acute and chronic respiratory failure with hypoxia; J96.22 - Acute and chronic respiratory failure with hypercapnia (2) Acute on chronic renal failure Current Visit: Yes Status: Acute Qualifiers: Acute renal failure type: unspecified Chronic kidney disease stage: stage 3 (moderate) Qualified Code(s): N17.9 - Acute kidney failure, unspecified; N18.3 - Chronic kidney disease, stage 3 (moderate) (3) Chronic systolic (congestive) heart failure Current Visit: Yes Status: Chronic (4) Cor pulmonale Current Visit: Yes Status: Acute (5) Moderate to severe pulmonary hypertension Current Visit: Yes Status: Chronic (6) Morbid obesity with BMI of 50.0-59.9, adult Current Visit: No Status: Chronic (7) SMITA treated with BiPAP Current Visit: Yes Status: Chronic Subjective Principal diagnosis: Respiratory insufficiency Interval history: Patient seen and examined at bedside. Patient is intubated and mildly sedated. We will follow commands and answer questions appropriately. No evidence of acute distress. No acute events overnight. Objective PUL Vital signs: Last Vital Signs Temp 98.6 F 06/19/17 03:45 Pulse 95 06/19/17 06:00 Resp 19 06/19/17 06:00 BP 98/55 06/19/17 06:00 Pulse Ox 93 06/19/17 06:00 General appearance: no acute distress ENT: oropharynx moist Effort: normal Auscultation: bilateral: diminished breath sounds Cardiovascular: regular rate and rhythm Gastrointestinal: normoactive bowel sounds, soft, tender (mild, diffuse) Extremities: no cyanosis, no clubbing, edema (3+ bilaterally) non-focal exam Ventilator Settings Ventilator Settings: Ventilator Settings, Last 8 Hours Ventilator Mode VC+ Ventilator Mode VC+ Ventilator Mode VC+ Ventilator Mode VC+ Ventilator Mode VC+ Ventilator Mode VC+ Ventilator Mode VC+ Ventilator Mode VC+ Ventilator Mode VC+ Ventilator Mode VC+ Ventilator Mode VC+ Ventilator Tidal Volume 300 Setting Ventilator Tidal Volume 300 Setting Ventilator Tidal Volume 300 Setting Ventilator Tidal Volume 300 Setting Ventilator Tidal Volume 300 Setting Ventilator Tidal Volume 300 Setting Ventilator Tidal Volume 300 Setting Ventilator Tidal Volume 300 Setting Ventilator Tidal Volume 300 Setting Ventilator Tidal Volume 300 Setting Ventilator Tidal Volume 300 Setting Ventilator Respiratory Rate 12 Setting Ventilator Respiratory Rate 12 Setting Ventilator Respiratory Rate 12 Setting Ventilator Respiratory Rate 12 Setting Ventilator Respiratory Rate 12 Setting Ventilator Respiratory Rate 12 Setting Ventilator Respiratory Rate 12 Setting Ventilator Respiratory Rate 12 Setting Ventilator Respiratory Rate 12 Setting Ventilator Respiratory Rate 12 Setting Ventilator Respiratory Rate 12 Setting Actual Respiratory Rate 19 Actual Respiratory Rate 18 Actual Respiratory Rate 25 Positive End Expiratory 5 Pressure Positive End Expiratory 5 Pressure Positive End Expiratory 5 Pressure Positive End Expiratory 5 Pressure Positive End Expiratory 5 Pressure Positive End Expiratory 5 Pressure Positive End Expiratory 5 Pressure Positive End Expiratory 5 Pressure Positive End Expiratory 5 Pressure Positive End Expiratory 5 Pressure Positive End Expiratory 5 Pressure Peak Inspiratory Airway 11 Pressure Peak Inspiratory Airway 11 Pressure Peak Inspiratory Airway 12 Pressure Results - Laboratory Findings CBC and BMP: 06/19/17 03:48 06/19/17 03:48 ABG ABG pH 7.41 pH Units (7.32-7.45) 06/19/17 04:50 ABG pCO2 65 mmHg (35-45) H 06/19/17 04:50 ABG pO2 62 mmHg (85-104) L 06/19/17 04:50 ABG O2 Saturation 92 % (95-98) L 06/19/17 04:50 PT/INR, D-dimer PT 13.2 Seconds (9.4-12.1) H 06/12/17 01:02 Abnormal lab findings: Abnormal lab results WBC 11.7 K/mcL (4.3-11.1) H 06/19/17 03:48 RBC 2.81 M/mcL (3.82-4.97) L 06/19/17 03:48 Hgb 7.9 g/dL (11.5-15.4) L 06/19/17 03:48 Hct 26.5 % (35.3-44.9) L 06/19/17 03:48 MCHC 29.8 g/dL (31.6-35.5) L 06/19/17 03:48 RDW 17.7 % (11.5-14.5) H 06/19/17 03:48 Neutrophils # 9.3 K/mcL (1.6-8.9) H 06/19/17 03:48 Nucleated RBCs/100 WBC 0.3 /100 WBC (0) H 06/03/17 04:00 Reactive Lymphocytes Present (Not Present) A 06/01/17 03:30 Large Platelets Present (Not Present) A 06/17/17 03:00 Immature Plt Fraction 10.6 % (1.1-6.1) H 06/06/17 04:40 Polychromasia 1+ (Not Present) A 06/01/17 03:30 Hypochromasia Present (Not Present) A 06/17/17 03:00 Basophilic Stippling 1+ (Not Present) A 06/01/17 03:30 Anisocytosis 2+ (Not Present) A 06/15/17 05:53 Microcytosis Present (Not Present) A 06/17/17 03:00 Macrocytosis Present (Not Present) A 06/17/17 03:00 PT 13.2 Seconds (9.4-12.1) H 06/12/17 01:02 APTT 36.4 Seconds (26.0-36.0) H 06/12/17 01:02 ABG pCO2 65 mmHg (35-45) H 06/19/17 04:50 ABG pO2 62 mmHg (85-104) L 06/19/17 04:50 ABG HCO3 41.2 mEQ/L (21-27) H 06/19/17 04:50 ABG Total CO2 43.2 mEq/L (20-26) H 06/19/17 04:50 ABG O2 Saturation 92 % (95-98) L 06/19/17 04:50 ABG Base Excess 14.0 mEq/L (-2.0 to 3.0) H 06/19/17 04:50 VBG pH 7.50 pH Units (7.32-7.42) H 05/31/17 21:46 VBG pO2 202 mmHg (25-40) H 05/31/17 21:46 VBG HCO3 36.7 mEq/L (21-27) H 05/31/17 21:46 Mixed VBG pH 7.29 (7.34-7.36) L 05/31/17 21:46 Mixed VBG pCO2 89 mmHg (44-46) H 05/31/17 21:46 Mixed VBG pO2 73 mmHg (35-45) H 05/31/17 21:46 Mixed VBG Oxyhemoglobin 93.0 % (60-80) H 05/31/17 21:46 Sodium 133 mEq/L (136-145) L 06/19/17 03:48 Chloride 91 mEq/L (98-109) L 06/19/17 03:48 Carbon Dioxide 37 mEq/L (19-29) H 06/19/17 03:48 BUN 34 mg/dL (7-20) H 06/19/17 03:48 Creatinine 1.82 mg/dL (0.57-1.11) H 06/19/17 03:48 Est GFR ( Amer) 37 (> 60) L 06/19/17 03:48 Est GFR (Non-Af Amer) 30 (> 60) L 06/19/17 03:48 Glucose 125 mg/dL (70-99) H 06/19/17 03:48 POC Glucose 207 (58-89) H 06/19/17 07:27 Magnesium 1.5 mg/dL (1.6-2.6) L 06/19/17 03:48 Total Bilirubin 1.6 mg/dL (0.2-1.2) H 06/19/17 03:48 Direct Bilirubin 1.0 mg/dL (0.0-0.5) H 06/19/17 03:48 Alkaline Phosphatase 266 Units/L (38-126) H 06/19/17 03:48 Creatine Kinase 200 Units/L (29-168) H 06/01/17 03:06 Troponin I 0.36 ng/mL (0-0.03) H* 05/29/17 15:53 Serum Total Protein 5.7 g/dL (6.0-8.3) L 06/19/17 03:48 Albumin 1.6 g/dL (3.5-5.0) L 06/19/17 03:48 Globulin 4.1 g/dL (2.4-3.5) H 06/19/17 03:48 Albumin/Globulin Ratio 0.4 (1.1-2.2) L 06/19/17 03:48 Urine Clarity Hazy (Clear) A 05/29/17 18:15 Ur Specific [place] 1.026 (1.010-1.025) H 05/29/17 18:15 Urine Protein 30 mg/dL (Neg-Trace) H 05/29/17 18:15 Urine Ketones Trace mg/dL (Negative) H 05/29/17 18:15 Urine Bilirubin Small (Negative) H 05/29/17 18:15 Urine Microscopic WBC 15-30 per hpf (0-3) H 05/29/17 18:15 Ur Squamous Epith Cells Many per lpf (None-Few) H 05/29/17 18:15 Amorphous Sediment Moderate (Few) H 05/29/17 18:15 Urine Bacteria Moderate per hpf (None-Few) H 05/29/17 18:15 Hyaline Casts Moderate per lpf (None-Few) H 05/29/17 18:15 Ur Culture Indicated? YES (NO) A 05/29/17 18:15 - Microbiology Findings Microbiology Findings: Microbiology, Last 48 Hours 06/15/17 13:29 Blood Culture - Preliminary Peripheral Venipuncture No growth. 06/15/17 13:29 Blood Culture - Preliminary Peripheral Venipuncture No growth. - Clinical Findings Intake & Output: Intake & Output 06/18/17 06/19/17 06/19/17 23:59 07:59 15:59 Intake Total 1015 / 1015 565 / 565 Output Total 2875 / 2875 50 / 50 Balance -1860 / -1860 515 / 515 Weight 138.165 kg - VTE Documentation of Mechanical Device: Intermittent pneumatic compression device Consult Discharge Plan - Plan Referrals: Mi Warren, ZINC PLATING MACHINE OPERATOR [Advanced Practice Nurse] - (computers are down call back later )
[2017-06-19] MEDS: MILRINONE 20 MG/100 ML IVC SCH ×3 (08:26→21:16)
[2017-06-19] MEDS: Norepinephrine 4 MG in D5% in Water 250 ML IVC SCH ×2 (08:26→20:14)
[2017-06-19] MEDS: Budesonide/Formoterol 160/4.5 MDI IH SCH ×2 (08:33→20:05)
[2017-06-19] MEDS ORDERED: *HR* Heparin 10,000 UNIT/10 ML VIAL IV PRN (12:37)
[2017-06-19] MEDS ORDERED: 0.9 % Sodium Chloride 250 ML IVC PRN (12:37)
[2017-06-19] MEDS ORDERED: Albumin 25% 25gram/100mL 25 GM/100 ML IV.SOLN IVPB PRN (12:40)
[2017-06-19] MEDS ORDERED: 0.9 % Sodium Chloride 2,000 ML ONE (13:15)
--- NOTE | 2017-06-19 13:24 | Nephrology Progress Note ---
Date of Encounter: 06/19/17 Time of Encounter: 13:30 - Assessment and Plan (1) BLANCA (acute kidney injury) Current Visit: Yes Status: Acute s/p second HD yesterday with UF approx 2.6kg. UF planned today for more fluid removal with gaol 3-4kg as tolerated with ablumin prn SCr improved at 1.8 after HD, will monitor Avoid nephrotoxins if possible Maintain stable hemodynamics if possible UOP stable at 575cc in the past 24hrs Limit obligate fluids if possible (2) Acute and chronic respiratory failure Current Visit: Yes Status: Acute Per primary team on biPAP with possible trach planned Qualifiers: Respiratory failure complication: hypoxia and hypercapnia Qualified Code(s) : J96.21 - Acute and chronic respiratory failure with hypoxia; J96.22 - Acute and chronic respiratory failure with hypercapnia (3) Hyperkalemia Current Visit: Yes Status: Acute Potassium remains normalized after 2 sessions of HD (4) Anemia Current Visit: No Status: Acute Hgb low and trending downward at 7.9 Transfusion parameters per primary team Qualifiers: Anemia type: unspecified type Qualified Code(s): D64.9 - Anemia, unspecified Subjective Principal diagnosis: Respiratory insufficiency Interval history: Interim events noted. Pt seen by Dr bravo and started on BIODIESEL ENGINEERING MANAGER yesterday after reconsult due to BLANCA and volume overload. Pt seen and examined today intubated and awake and responsive. family members at bedside and seem to be accepting need for trach. Milronone gtt, levo at 2mcg, precedex gtt and vital feeds noted. BPs readings noted at 90/50s. Objective - Vital Signs Vital signs: Vital Signs Temp Pulse Resp BP Pulse Ox 06/19/17 13:00 98 20 90/56 94 06/19/17 12:00 98.3 F 115 23 83/45 91 06/19/17 11:40 23 91 06/19/17 11:00 96 23 89/59 91 06/19/17 10:00 106 17 103/65 92 06/19/17 09:00 100 17 97/66 92 06/19/17 08:29 17 92 06/19/17 08:00 98.6 F 100 18 95/63 92 06/19/17 07:30 99.2 F 06/19/17 07:00 99 21 89/53 92 06/19/17 06:00 95 19 98/55 93 07/22/17 05:48 19 96/67 93 06/19/17 05:00 91 20 94/52 93 06/19/17 04:00 90 19 93/53 93 06/19/17 03:45 98.6 F 06/19/17 03:42 18 92/56 93 06/19/17 03:05 86 14 91/59 93 06/19/17 02:01 25 88/50 95 06/19/17 02:00 85 18 88/50 93 06/19/17 01:00 90 16 86/70 95 06/19/17 00:07 92 19 86/55 94 06/19/17 00:00 23 81/47 93 06/18/17 23:15 99.1 F 06/18/17 23:00 94 17 97/56 93 06/18/17 22:22 26 88/52 93 06/18/17 22:00 95 15 88/52 93 06/18/17 21:00 95 14 107/62 93 06/18/17 20:00 94 19 101/60 94 06/18/17 19:45 21 85/47 95 06/18/17 19:05 98.3 F 06/18/17 19:00 105 14 97/62 95 06/18/17 18:33 99.1 F 18 101/68 06/18/17 18:15 90/62 06/18/17 18:11 87 23 94/60 94 06/18/17 18:00 94/60 06/18/17 17:45 90/54 06/18/17 17:41 22 96 06/18/17 17:35 100/59 06/18/17 17:30 88/57 06/18/17 17:15 92/78 06/18/17 17:00 94 21 83/62 95 06/18/17 16:45 96/64 06/18/17 16:30 93/61 06/18/17 16:15 107/64 06/18/17 16:07 21 95 06/18/17 16:00 99.0 F 88 19 93/61 95 06/18/17 15:45 93/58 06/18/17 15:30 100/51 06/18/17 15:15 99.3 F 18 93/60 07/21/17 15:00 90 17 120/115 93 06/18/17 14:00 91 17 88/55 67 Intake and Output 06/18/17 06/19/17 06/19/17 23:59 07:59 15:59 Intake Total 1015 / 1015 565 / 565 712 / 712 Output Total 2875 / 2875 100 / 100 Balance -1860 / -1860 465 / 465 712 / 712 Intake: IV Fluids 300 / 300 304 / 304 290 / 290 PRECEDEX 400 mcg In 100 200 / 200 200 / 200 100 / 100 ml @ 0.3 MCG/KG/HR 10.358 mls/hr IVC .Q9H40M [place] Rx#:[id number] Primacor Premix 20 MG/100 100 / 100 100 / 100 ML 20 mg In 100 ml @ 0. 25 MCG/KG/MIN 10.358 mls/ hr IVC .Q9H40M [place] Rx#: [id number] Levophed 4 MG In Dextrose 0 / 0 90 / 90 5% 250 ML @ 5 MCG/MIN 18 .75 mls/hr IVC CONT [place] Rx#:[id number] Magnesium Sulfate 2 GM In 104 / 104 Dextrose 5% 100 ML @ 50 mls/hr IVPB Q6H PRN Rx#: [id number] Tube Feeding 685 / 685 261 / 261 422 / 422 Free Water Intake Amount 30 / 30 Output: Urine 0 / 0 50 / 50 Total Dialysis (HD) 2600 / 2600 Output Catheter 275 / 275 50 / 50 Other: Stool Size Moderate Stool Consistency liquid Stool Color Brown # Bowel Movements 1 Weight 138.165 kg Blood Glucose* 142 207 201 Hemodialysis Net Fluid 2000 Removed (mL) Patient Weight 06/19/17 23:59 Weight 138.165 kg - Lab 06/19/17 03:48 06/19/17 03:48 Most recent lab results ABG pH 7.41 pH Units (7.32-7.45) 06/19/17 04:50 ABG pCO2 65 mmHg (35-45) H 06/19/17 04:50 ABG pO2 62 mmHg (85-104) L 06/19/17 04:50 ABG HCO3 41.2 mEQ/L (21-27) H 06/19/17 04:50 ABG O2 Saturation 92 % (95-98) L 06/19/17 04:50 Calcium 8.9 mg/dL (8.6-10.8) 06/19/17 03:48 Phosphorus 2.8 mg/dL (2.3-4.7) 06/19/17 03:48 Magnesium 1.5 mg/dL (1.6-2.6) L 06/19/17 03:48 Urine Creatinine 88 mg/dL 06/17/17 07:15 Urine Sodium 27.0 mEq/L 06/17/17 07:15 - VTE Documentation of Mechanical Device: Intermittent pneumatic compression device Consult Discharge Plan - Plan Referrals: Mi Warren, ACCOUNTING CLERK [Advanced Practice Nurse] - (computers are down call back later )
[2017-06-20] MEDS: *HR* FentaNYL (PF) 100 MCG/2 ML VIAL IVP PRN ×5 (00:38→07:49)
[2017-06-20] MEDS: MILRINONE 20 MG/100 ML IVC SCH ×4 (01:05→21:12)
[2017-06-20] MEDS: Dexmedetomidine HCl 400 MCG/100 ML MLS IVC SCH ×7 (01:05→23:45)
[2017-06-20] MEDS: Insulin LISPRO 300 UNITS/3 ML VIAL SQ SCH ×6 (03:24→23:37)
[2017-06-20] MEDS: Lacri-Lube 3.5 GM TUBE BOTH EYES SCH ×6 (03:24→23:38)
[2017-06-20 03:25] LABS: Basophils % 0.2 %; Eosinophils # 0.1 K/mcL (0.0-0.6); Eosinophils % 0.7 %; Hemoglobin 7.8 g/dL (11.5-15.4); Immature Granulocytes % 3.6 % (0-4); Lymphocytes % 7.2 %; Mean Corpuscular Hemoglobin 28.5 pg (28.0-33.3); Mean Corpuscular Volume 94.9 fL (83.0-100.0); Mean Platelet Volume 11.9 fL (9.4-12.4); Monocytes # 1.1 K/mcL (0.0-1.3); Monocytes % 8.2 %; Neutrophils # 10.6 K/mcL (1.6-8.9); Platelet Count 220 K/mcL (140-400); Red Blood Count 2.74 M/mcL (3.82-4.97); Red Cell Distribution Width 17.5 % (11.5-14.5); Segmented Neutrophils % 80.1 %
[2017-06-20 03:29] LABS: Ionized Calcium 1.2 mmol/L (1.15-1.35)
[2017-06-20 03:40] LABS: Albumin/Globulin Ratio 0.5 (1.1-2.2); Bilirubin,Direct 1.1 mg/dL (0.0-0.5); Bilirubin,Indirect 0.4 mg/dL (0.0-1.2); Bilirubin,Total 1.5 mg/dL (0.2-1.2); Calcium 9.3 mg/dL (8.6-10.8); Globulin 4.1 g/dL (2.4-3.5); Magnesium 1.6 mg/dL (1.6-2.6); Phosphorous 2.9 mg/dL (2.3-4.7); Potassium 4.1 mEq/L (3.5-4.5)
[2017-06-20 03:51] LABS: Albumin 1.9 g/dL (3.5-5.0)
[2017-06-20] MEDS: Magnesium Sulfate 2 GM in D5% in Water 100 ML IVPB PRN (04:31)
[2017-06-20] MEDS: *HR* Heparin 5,000 UNIT/ML VIAL SQ SCH ×3 (06:14→22:18)
[2017-06-20] MEDS: Chlorhexidine Rinse 15 ML MOUTHWASH MM SCH ×2 (07:48→19:30)
[2017-06-20] MEDS: Docusate Oral Soln 100 MG/10 ML UDC PO SCH ×2 (07:48→19:30)
[2017-06-20] MEDS: Pantoprazole 40 MG VIAL IVP SCH (07:49)
[2017-06-20] MEDS: Aspirin 81 MG TAB.CHEW PO SCH (07:49)
[2017-06-20] MEDS: Cholecalciferol (D-3) 1,000 UNIT TABLET PO SCH (07:49)
[2017-06-20] MEDS: Nystatin OINT 15 GM TUBE TP SCH ×4 (07:51→19:31)
[2017-06-20] MEDS: Nystatin POWDER 30 GM BOTTLE TP SCH ×2 (07:51→19:31)
[2017-06-20] MEDS: Budesonide/Formoterol 160/4.5 MDI IH SCH ×2 (08:10→23:11)
--- NOTE | 2017-06-20 08:41 | Pulmonology Progress Note ---
Date of Encounter: 06/20/17 Time of Encounter: 08:39 Assessment and Plan (1) Acute and chronic respiratory failure Current Visit: Yes Status: Acute In the setting of obesity hypoventilation syndrome with right-sided heart failure and cor pulmonale. Patient had an extended stay in the intensive care unit recently and had been on the medical floor for the last several days. Patient became short of breath and somnolent and ABG revealed an acute on chronic hypercapnic respiratory acidosis. She remains on ventilatory support. ABG shows acceptable for oxygenation and ventilation with a chronic hypercapnia. Patient remains in acute kidney injury. Urine output remains minimal. Nephrology is following, further dialysis plans per nephrology. Initially antibiotics were initiated however there is no clear source of infection. Patient does have a mild leukocytosis that continues to improve, likely related to underlying stress in the setting of critical illness. Blood cultures are negative. We will hold off on further antibiotics at this time. Patient has mild diffuse abdominal tenderness which is been present since admission. Patient was initially evaluated for gallbladder disease but she appears to have gallstones without evidence of acute cholecystitis. MiraLAX was added yesterday and the patient had several bowel movements. Continue tube feeds. We were able to talk to the patient today about her wishes regarding tracheostomy and long-term mechanical ventilation which she would likely need given her severe obesity hypoventilation syndrome. Patient is agreeable to tracheostomy placement and long-term mechanical ventilation. If unable to extubate safely we will likely proceed with tracheostomy in the near future. Qualifiers: Respiratory failure complication: hypoxia and hypercapnia Qualified Code(s) : J96.21 - Acute and chronic respiratory failure with hypoxia; J96.22 - Acute and chronic respiratory failure with hypercapnia (2) Acute on chronic renal failure Current Visit: Yes Status: Acute Qualifiers: Acute renal failure type: unspecified Chronic kidney disease stage: stage 3 (moderate) Qualified Code(s): N17.9 - Acute kidney failure, unspecified; N18.3 - Chronic kidney disease, stage 3 (moderate) (3) Chronic systolic (congestive) heart failure Current Visit: Yes Status: Chronic (4) Cor pulmonale Current Visit: Yes Status: Acute (5) Moderate to severe pulmonary hypertension Current Visit: Yes Status: Chronic (6) Morbid obesity with BMI of 50.0-59.9, adult Current Visit: No Status: Chronic (7) SMITA treated with BiPAP Current Visit: Yes Status: Chronic Subjective Principal diagnosis: Respiratory insufficiency Interval history: Patient seen and examined at bedside. Patient is intubated and mildly sedated. We will follow commands and answer questions appropriately. No evidence of acute distress. No acute events overnight. Objective PUL Vital signs: Last Vital Signs Temp 98.3 F 06/20/17 03:00 Pulse 84 06/20/17 06:00 Resp 19 06/20/17 08:11 BP 106/58 06/20/17 06:11 Pulse Ox 95 06/20/17 08:11 General appearance: no acute distress ENT: oropharynx moist Auscultation: bilateral: diminished breath sounds Cardiovascular: regular rate and rhythm Gastrointestinal: hypoactive bowel sounds, soft, non-tender Extremities: no cyanosis, no clubbing, edema (2+) normal mental status Ventilator Settings Ventilator Settings: Ventilator Settings, Last 8 Hours Ventilator Mode VC+ Ventilator Mode VC+ Ventilator Mode VC+ Ventilator Mode VC+ Ventilator Mode VC+ Ventilator Mode VC+ Ventilator Mode VC+ Ventilator Mode VC+ Ventilator Mode VC+ Ventilator Mode VC+ Ventilator Tidal Volume 300 Setting Ventilator Tidal Volume 300 Setting Ventilator Tidal Volume 300 Setting Ventilator Tidal Volume 300 Setting Ventilator Tidal Volume 300 Setting Ventilator Tidal Volume 300 Setting Ventilator Tidal Volume 300 Setting Ventilator Tidal Volume 300 Setting Ventilator Tidal Volume 300 Setting Ventilator Tidal Volume 300 Setting Ventilator Respiratory Rate 12 Setting Ventilator Respiratory Rate 12 Setting Ventilator Respiratory Rate 12 Setting Ventilator Respiratory Rate 12 Setting Ventilator Respiratory Rate 12 Setting Ventilator Respiratory Rate 12 Setting Ventilator Respiratory Rate 12 Setting Ventilator Respiratory Rate 12 Setting Ventilator Respiratory Rate 12 Setting Ventilator Respiratory Rate 12 Setting Actual Respiratory Rate 19 Actual Respiratory Rate 23 Actual Respiratory Rate 24 Actual Respiratory Rate 22 Actual Respiratory Rate 17 Actual Respiratory Rate 15 Actual Respiratory Rate 16 Actual Respiratory Rate 16 Actual Respiratory Rate 21 Actual Respiratory Rate 21 Positive End Expiratory 5 Pressure Positive End Expiratory 5 Pressure Positive End Expiratory 5 Pressure Positive End Expiratory 5 Pressure Positive End Expiratory 5 Pressure Positive End Expiratory 5 Pressure Positive End Expiratory 5 Pressure Positive End Expiratory 5 Pressure Positive End Expiratory 5 Pressure Positive End Expiratory 5 Pressure Peak Inspiratory Airway 11 Pressure Peak Inspiratory Airway 13 Pressure Peak Inspiratory Airway 14 Pressure Peak Inspiratory Airway 13 Pressure Peak Inspiratory Airway 17 Pressure Peak Inspiratory Airway 11 Pressure Peak Inspiratory Airway 14 Pressure Peak Inspiratory Airway 13 Pressure Peak Inspiratory Airway 23 Pressure Peak Inspiratory Airway 19 Pressure Results - Laboratory Findings CBC and BMP: 06/20/17 03:15 06/20/17 03:15 ABG ABG pH 7.41 pH Units (7.32-7.45) 06/19/17 04:50 ABG pCO2 65 mmHg (35-45) H 06/19/17 04:50 ABG pO2 62 mmHg (85-104) L 06/19/17 04:50 ABG O2 Saturation 92 % (95-98) L 06/19/17 04:50 PT/INR, D-dimer PT 13.2 Seconds (9.4-12.1) H 06/12/17 01:02 Abnormal lab findings: Abnormal lab results WBC 13.3 K/mcL (4.3-11.1) H 06/20/17 03:15 RBC 2.74 M/mcL (3.82-4.97) L 06/20/17 03:15 Hgb 7.8 g/dL (11.5-15.4) L 06/20/17 03:15 Hct 26.0 % (35.3-44.9) L 06/20/17 03:15 MCHC 30.0 g/dL (31.6-35.5) L 06/20/17 03:15 RDW 17.5 % (11.5-14.5) H 06/20/17 03:15 Neutrophils # 10.6 K/mcL (1.6-8.9) H 06/20/17 03:15 Nucleated RBCs/100 WBC 0.3 /100 WBC (0) H 06/03/17 04:00 Reactive Lymphocytes Present (Not Present) A 06/01/17 03:30 Large Platelets Present (Not Present) A 06/17/17 03:00 Immature Plt Fraction 10.6 % (1.1-6.1) H 06/06/17 04:40 Polychromasia 1+ (Not Present) A 06/01/17 03:30 Hypochromasia Present (Not Present) A 06/17/17 03:00 Basophilic Stippling 1+ (Not Present) A 06/01/17 03:30 Anisocytosis 2+ (Not Present) A 06/15/17 05:53 Microcytosis Present (Not Present) A 06/17/17 03:00 Macrocytosis Present (Not Present) A 06/17/17 03:00 PT 13.2 Seconds (9.4-12.1) H 06/12/17 01:02 APTT 36.4 Seconds (26.0-36.0) H 06/12/17 01:02 ABG pCO2 65 mmHg (35-45) H 06/19/17 04:50 ABG pO2 62 mmHg (85-104) L 06/19/17 04:50 ABG HCO3 41.2 mEQ/L (21-27) H 06/19/17 04:50 ABG Total CO2 43.2 mEq/L (20-26) H 06/19/17 04:50 ABG O2 Saturation 92 % (95-98) L 06/19/17 04:50 ABG Base Excess 14.0 mEq/L (-2.0 to 3.0) H 06/19/17 04:50 VBG pH 7.50 pH Units (7.32-7.42) H 05/31/17 21:46 VBG pO2 202 mmHg (25-40) H 05/31/17 21:46 VBG HCO3 36.7 mEq/L (21-27) H 05/31/17 21:46 Mixed VBG pH 7.29 (7.34-7.36) L 05/31/17 21:46 Mixed VBG pCO2 89 mmHg (44-46) H 05/31/17 21:46 Mixed VBG pO2 73 mmHg (35-45) H 05/31/17 21:46 Mixed VBG Oxyhemoglobin 93.0 % (60-80) H 05/31/17 21:46 Sodium 135 mEq/L (136-145) L 06/20/17 03:15 Chloride 92 mEq/L (98-109) L 06/20/17 03:15 Carbon Dioxide 37 mEq/L (19-29) H 06/20/17 03:15 BUN 42 mg/dL (7-20) H 06/20/17 03:15 Creatinine 1.98 mg/dL (0.57-1.11) H 06/20/17 03:15 Est GFR ( Amer) 33 (> 60) L 06/20/17 03:15 Est GFR (Non-Af Amer) 27 (> 60) L 06/20/17 03:15 Glucose 192 mg/dL (70-99) H 06/20/17 03:15 POC Glucose 182 (58-89) H 06/20/17 07:48 Total Bilirubin 1.5 mg/dL (0.2-1.2) H 06/20/17 03:15 Direct Bilirubin 1.1 mg/dL (0.0-0.5) H 06/20/17 03:15 Alkaline Phosphatase 266 Units/L (38-126) H 06/20/17 03:15 Creatine Kinase 200 Units/L (29-168) H 06/01/17 03:06 Troponin I 0.36 ng/mL (0-0.03) H* 05/29/17 15:53 Albumin 1.9 g/dL (3.5-5.0) L 06/20/17 03:15 Globulin 4.1 g/dL (2.4-3.5) H 06/20/17 03:15 Albumin/Globulin Ratio 0.5 (1.1-2.2) L 06/20/17 03:15 Urine Clarity Hazy (Clear) A 05/29/17 18:15 Ur Specific [place] 1.026 (1.010-1.025) H 05/29/17 18:15 Urine Protein 30 mg/dL (Neg-Trace) H 05/29/17 18:15 Urine Ketones Trace mg/dL (Negative) H 05/29/17 18:15 Urine Bilirubin Small (Negative) H 05/29/17 18:15 Urine Microscopic WBC 15-30 per hpf (0-3) H 05/29/17 18:15 Ur Squamous Epith Cells Many per lpf (None-Few) H 05/29/17 18:15 Amorphous Sediment Moderate (Few) H 05/29/17 18:15 Urine Bacteria Moderate per hpf (None-Few) H 05/29/17 18:15 Hyaline Casts Moderate per lpf (None-Few) H 05/29/17 18:15 Ur Culture Indicated? YES (NO) A 05/29/17 18:15 - Clinical Findings Intake & Output: Intake & Output 06/19/17 06/20/17 06/20/17 23:59 07:59 15:59 Intake Total 1520 / 1520 595 / 595 Output Total 4665 / 4665 50 / 50 Balance -3145 / -3145 545 / 545 Weight 136.71 kg - VTE Documentation of Mechanical Device: Intermittent pneumatic compression device Consult Discharge Plan - Plan Referrals: Mi Warren, DIRECT CARE STAFFER [Advanced Practice Nurse] - (computers are down call back later )
[2017-06-20] MEDS: FentaNYL (PF) 1,000 MCG in 0.9 % Sodium Chloride 80 ML IVC SCH ×2 (10:16→16:59)
[2017-06-20] MEDS: Norepinephrine 4 MG in D5% in Water 250 ML IVC SCH (17:01)
[2017-06-21] MEDS: FentaNYL (PF) 1,000 MCG in 0.9 % Sodium Chloride 80 ML IVC SCH ×3 (02:04→22:28)
[2017-06-21] MEDS: Norepinephrine 4 MG in D5% in Water 250 ML IVC SCH (02:04)
[2017-06-21 03:52] LABS: Hematocrit 26.9 % (35.3-44.9); Hemoglobin 7.9 g/dL (11.5-15.4); Mean Corpuscular HGB Conc 29.4 g/dL (31.6-35.5); Mean Corpuscular Hemoglobin 27.9 pg (28.0-33.3); Mean Corpuscular Volume 95.1 fL (83.0-100.0); Mean Platelet Volume 11.5 fL (9.4-12.4); Platelet Count 273 K/mcL (140-400); Red Blood Count 2.83 M/mcL (3.82-4.97); Red Cell Distribution Width 17.5 % (11.5-14.5)
[2017-06-21] MEDS: MILRINONE 20 MG/100 ML IVC SCH ×3 (03:52→22:30)
[2017-06-21] MEDS: Dexmedetomidine HCl 400 MCG/100 ML MLS IVC SCH ×5 (03:52→22:27)
[2017-06-21] MEDS: Lacri-Lube 3.5 GM TUBE BOTH EYES SCH ×6 (03:53→22:48)
[2017-06-21] MEDS: Insulin LISPRO 300 UNITS/3 ML VIAL SQ SCH ×6 (03:53→23:34)
[2017-06-21 03:57] LABS: Ionized Calcium 1.21 mmol/L (1.15-1.35)
[2017-06-21 04:07] LABS: Albumin/Globulin Ratio 0.5 (1.1-2.2); Bilirubin,Direct 1.1 mg/dL (0.0-0.5); Bilirubin,Indirect 0.2 mg/dL (0.0-1.2); Bilirubin,Total 1.3 mg/dL (0.2-1.2); Calcium 9.4 mg/dL (8.6-10.8); Globulin 4.2 g/dL (2.4-3.5); Magnesium 1.7 mg/dL (1.6-2.6); Potassium 4.1 mEq/L (3.5-4.5); Total Protein 6.1 g/dL (6.0-8.3)
[2017-06-21 04:08] LABS: Albumin 1.9 g/dL (3.5-5.0)
[2017-06-21 04:49] LABS: Lymphocytes # 2.6 K/mcL (0.6-4.6); Monocytes # 1.3 K/mcL (0.0-1.3); Neutrophils # 12.5 K/mcL (1.6-8.9); Platelet Estimate Normal (Normal)
[2017-06-21 05:14] LABS: ABG HCO3 41.7 mEQ/L (21-27); ABG Oxygen Saturation 73 % (95-98); ABG PH 7.32 pH Units (7.32-7.45); ABG TCO2 44.2 mEq/L (20-26)
[2017-06-21 05:15] LABS: Blood Gas FiO2 60 %
[2017-06-21 05:16] LABS: ABG PCO2 81 mmHg (35-45); ABG PO2 42 mmHg (85-104)
[2017-06-21 05:30] LABS: ABG Base Excess 10.9 mEq/L (-2.0 to 3.0); ABG HCO3 39.2 mEQ/L (21-27); ABG Oxygen Saturation 95 % (95-98); ABG PH 7.32 pH Units (7.32-7.45); ABG PO2 84 mmHg (85-104); ABG TCO2 41.5 mEq/L (20-26); Blood Gas FiO2 60 %
[2017-06-21 05:31] LABS: ABG PCO2 76 mmHg (35-45)
[2017-06-21] MEDS: *HR* Heparin 5,000 UNIT/ML VIAL SQ SCH (05:36)
[2017-06-21] MEDS: Magnesium Sulfate 2 GM in D5% in Water 100 ML IVPB PRN ×2 (06:22→21:09)
--- NOTE | 2017-06-21 07:51 | Pulmonology Progress Note ---
<Ronald Stevens W - Last Filed: 06/21/17 14:13> Date of Encounter: 06/21/17 Assessment and Plan (1) Acute and chronic respiratory failure Current Visit: Yes Status: Acute Qualifiers: Respiratory failure complication: hypoxia and hypercapnia Qualified Code(s) : J96.21 - Acute and chronic respiratory failure with hypoxia; J96.22 - Acute and chronic respiratory failure with hypercapnia (2) Acute on chronic renal failure Current Visit: Yes Status: Acute Qualifiers: Acute renal failure type: unspecified Chronic kidney disease stage: stage 3 (moderate) Qualified Code(s): N17.9 - Acute kidney failure, unspecified; N18.3 - Chronic kidney disease, stage 3 (moderate) (3) Moderate to severe pulmonary hypertension Current Visit: Yes Status: Chronic (4) Morbid obesity with BMI of 50.0-59.9, adult Current Visit: No Status: Chronic (5) Candidal intertrigo Current Visit: No Status: Acute (6) SMITA treated with BiPAP Current Visit: Yes Status: Chronic (7) Cor pulmonale Current Visit: Yes Status: Acute (8) Chronic systolic (congestive) heart failure Current Visit: Yes Status: Chronic Objective PUL Vital signs: Last Vital Signs Temp 98.1 F 06/21/17 08:11 Pulse 96 06/21/17 07:00 Resp 20 06/21/17 08:24 BP 115/71 06/21/17 07:00 Pulse Ox 97 06/21/17 08:24 Ventilator Settings Ventilator Settings: Ventilator Settings, Last 8 Hours Ventilator Mode A/C Ventilator Mode A/C Ventilator Mode A/C Ventilator Mode A/C Ventilator Mode A/C Ventilator Mode A/C Ventilator Mode VC+ Ventilator Mode VC+ Ventilator Mode VC+ Ventilator Mode VC+ Ventilator Mode VC+ Ventilator Mode VC+ Ventilator Mode VC+ Ventilator Tidal Volume 400 Setting Ventilator Tidal Volume 400 Setting Ventilator Tidal Volume 400 Setting Ventilator Tidal Volume 400 Setting Ventilator Tidal Volume 300 Setting Ventilator Tidal Volume 300 Setting Ventilator Tidal Volume 300 Setting Ventilator Tidal Volume 300 Setting Ventilator Tidal Volume 300 Setting Ventilator Tidal Volume 300 Setting Ventilator Tidal Volume 300 Setting Ventilator Tidal Volume 300 Setting Ventilator Tidal Volume 300 Setting Ventilator Respiratory Rate 14 Setting Ventilator Respiratory Rate 14 Setting Ventilator Respiratory Rate 14 Setting Ventilator Respiratory Rate 14 Setting Ventilator Respiratory Rate 12 Setting Ventilator Respiratory Rate 12 Setting Ventilator Respiratory Rate 12 Setting Ventilator Respiratory Rate 12 Setting Ventilator Respiratory Rate 12 Setting Ventilator Respiratory Rate 12 Setting Ventilator Respiratory Rate 12 Setting Ventilator Respiratory Rate 12 Setting Ventilator Respiratory Rate 12 Setting Actual Respiratory Rate 18 Actual Respiratory Rate 21 Actual Respiratory Rate 21 Actual Respiratory Rate 20 Actual Respiratory Rate 20 Actual Respiratory Rate 21 Actual Respiratory Rate 14 Actual Respiratory Rate 20 Actual Respiratory Rate 21 Actual Respiratory Rate 20 Actual Respiratory Rate 19 Positive End Expiratory 5 Pressure Positive End Expiratory 5 Pressure Positive End Expiratory 5 Pressure Positive End Expiratory 5 Pressure Positive End Expiratory 5 Pressure Positive End Expiratory 5 Pressure Positive End Expiratory 5 Pressure Positive End Expiratory 5 Pressure Positive End Expiratory 5 Pressure Positive End Expiratory 5 Pressure Positive End Expiratory 5 Pressure Positive End Expiratory 5 Pressure Positive End Expiratory 5 Pressure Peak Inspiratory Airway 12 Pressure Peak Inspiratory Airway 16 Pressure Peak Inspiratory Airway 16 Pressure Peak Inspiratory Airway 20 Pressure Peak Inspiratory Airway 17 Pressure Peak Inspiratory Airway 14 Pressure Peak Inspiratory Airway 13 Pressure Peak Inspiratory Airway 12 Pressure Peak Inspiratory Airway 17 Pressure Peak Inspiratory Airway 13 Pressure Peak Inspiratory Airway 13 Pressure Results - Laboratory Findings CBC and BMP: 06/21/17 03:45 06/21/17 03:45 ABG ABG pH 7.32 pH Units (7.32-7.45) 06/21/17 05:23 ABG pCO2 76 mmHg (35-45) H* 06/21/17 05:23 ABG pO2 84 mmHg (85-104) L 06/21/17 05:23 ABG O2 Saturation 95 % (95-98) 06/21/17 05:23 PT/INR, D-dimer PT 13.2 Seconds (9.4-12.1) H 06/12/17 01:02 Abnormal lab findings: Abnormal lab results WBC 16.4 K/mcL (4.3-11.1) H 06/21/17 03:45 RBC 2.83 M/mcL (3.82-4.97) L 06/21/17 03:45 Hgb 7.9 g/dL (11.5-15.4) L 06/21/17 03:45 Hct 26.9 % (35.3-44.9) L 06/21/17 03:45 MCH 27.9 pg (28.0-33.3) L 06/21/17 03:45 MCHC 29.4 g/dL (31.6-35.5) L 06/21/17 03:45 RDW 17.5 % (11.5-14.5) H 06/21/17 03:45 Band Neutrophils % 12.0 % (0-4) H 06/21/17 03:45 Neutrophils # 12.5 K/mcL (1.6-8.9) H 06/21/17 03:45 Nucleated RBCs/100 WBC 0.3 /100 WBC (0) H 06/03/17 04:00 Reactive Lymphocytes Present (Not Present) A 06/01/17 03:30 Large Platelets Present (Not Present) A 06/17/17 03:00 Immature Plt Fraction 10.6 % (1.1-6.1) H 06/06/17 04:40 Polychromasia 1+ (Not Present) A 06/01/17 03:30 Hypochromasia Present (Not Present) A 06/17/17 03:00 Basophilic Stippling 1+ (Not Present) A 06/01/17 03:30 Anisocytosis 2+ (Not Present) A 06/15/17 05:53 Microcytosis Present (Not Present) A 06/17/17 03:00 Macrocytosis Present (Not Present) A 06/17/17 03:00 PT 13.2 Seconds (9.4-12.1) H 06/12/17 01:02 APTT 36.4 Seconds (26.0-36.0) H 06/12/17 01:02 ABG pCO2 76 mmHg (35-45) H* 06/21/17 05:23 ABG pO2 84 mmHg (85-104) L 06/21/17 05:23 ABG HCO3 39.2 mEQ/L (21-27) H 06/21/17 05:23 ABG Total CO2 41.5 mEq/L (20-26) H 06/21/17 05:23 ABG Base Excess 10.9 mEq/L (-2.0 to 3.0) H 06/21/17 05:23 VBG pH 7.50 pH Units (7.32-7.42) H 05/31/17 21:46 VBG pO2 202 mmHg (25-40) H 05/31/17 21:46 VBG HCO3 36.7 mEq/L (21-27) H 05/31/17 21:46 Mixed VBG pH 7.29 (7.34-7.36) L 05/31/17 21:46 Mixed VBG pCO2 89 mmHg (44-46) H 05/31/17 21:46 Mixed VBG pO2 73 mmHg (35-45) H 05/31/17 21:46 Mixed VBG Oxyhemoglobin 93.0 % (60-80) H 05/31/17 21:46 Sodium 134 mEq/L (136-145) L 06/21/17 03:45 Chloride 92 mEq/L (98-109) L 06/21/17 03:45 Carbon Dioxide 34 mEq/L (19-29) H 06/21/17 03:45 BUN 50 mg/dL (7-20) H 06/21/17 03:45 Creatinine 2.07 mg/dL (0.57-1.11) H 06/21/17 03:45 Est GFR ( Amer) 32 (> 60) L 06/21/17 03:45 Est GFR (Non-Af Amer) 26 (> 60) L 06/21/17 03:45 Glucose 115 mg/dL (70-99) H 06/21/17 03:45 POC Glucose 145 (58-89) H 06/21/17 07:22 Total Bilirubin 1.3 mg/dL (0.2-1.2) H 06/21/17 03:45 Direct Bilirubin 1.1 mg/dL (0.0-0.5) H 06/21/17 03:45 Alkaline Phosphatase 250 Units/L (38-126) H 06/21/17 03:45 Creatine Kinase 200 Units/L (29-168) H 06/01/17 03:06 Troponin I 0.36 ng/mL (0-0.03) H* 05/29/17 15:53 Albumin 1.9 g/dL (3.5-5.0) L 06/21/17 03:45 Globulin 4.2 g/dL (2.4-3.5) H 06/21/17 03:45 Albumin/Globulin Ratio 0.5 (1.1-2.2) L 06/21/17 03:45 Urine Clarity Hazy (Clear) A 05/29/17 18:15 Ur Specific [place] 1.026 (1.010-1.025) H 05/29/17 18:15 Urine Protein 30 mg/dL (Neg-Trace) H 05/29/17 18:15 Urine Ketones Trace mg/dL (Negative) H 05/29/17 18:15 Urine Bilirubin Small (Negative) H 05/29/17 18:15 Urine Microscopic WBC 15-30 per hpf (0-3) H 05/29/17 18:15 Ur Squamous Epith Cells Many per lpf (None-Few) H 05/29/17 18:15 Amorphous Sediment Moderate (Few) H 05/29/17 18:15 Urine Bacteria Moderate per hpf (None-Few) H 05/29/17 18:15 Hyaline Casts Moderate per lpf (None-Few) H 05/29/17 18:15 Ur Culture Indicated? YES (NO) A 05/29/17 18:15 - Microbiology Findings Microbiology Findings: Microbiology, Last 48 Hours 06/15/17 13:29 Blood Culture - Final Peripheral Venipuncture No growth. 06/15/17 13:29 Blood Culture - Final Peripheral Venipuncture No growth. - Clinical Findings Intake & Output: Intake & Output 06/20/17 06/21/17 06/21/17 23:59 07:59 15:59 Intake Total 700 / 700 458 / 458 Output Total 50 / 50 100 / 100 15 Balance 650 / 650 358 / 358 -15 Weight 136.4 kg Consult Discharge Plan - Plan Referrals: Mi Warren, [employer]IE[employer]PERATOR [employer]FORMER [Advanced Practice Nurse] - (computers are down call back later ) - Attending Attestation I examined this patient and my medical decision-making was reviewed with the Resident Physician. I agree with the documented findings, disposition and treatment plan as described except to the extent set forth below. Patient seen and examined at bedside Labs, radiology, chart personally reviewed. All lines examined without evidence of infection. Management was reviewed during multidisciplinary critical care rounds. Neuropsych: Awake and alert and follows commands; cont fentanyl and precedex for anxiety and pain. Pulm: Acute on chronic hypoxic hypercarbic respiratory failure with evidence of severe pulmonary hypertension likely secondary to group 3 disease. This and manifestation of prolonged obesity hypoventilation syndrome COPD and obstructive sleep apnea. She has failed extubation requiring reintubation and overall prognosis from management with noninvasive ventilatory support is poor plan to consult otolaryngology for tracheostomy placement for ongoing management. Based upon repeat echocardiogram she will likely need evaluation for pulmonary arterial hypertension (group 1 disease); today's oxygenation ventilation is acceptable on current vent settings Cards: Acute cor pulmonale weaned off vasopressor remains on inotropic support with milrinone goal map greater than 60 FEN-GI: GI prophylaxis given we will decrease rate of enteral nutrition to accommodate for worsening abdominal pain this is been extensively evaluated both by surgery and radiographically without clear etiology we will see if amount of abdominal fullness status pain can improve with decreasing the rate of entral nutrition nutrition is following this case very closely appreciate the recommendations Renal: Acute kidney injury secondary to hypoperfusion from right heart failure she is on inotropic support she does have urine output although it is minimal she is requiring intermittent dialysis nephrology following replace electrolytes per protocol ID: No evidence of acute infection continue to monitor Heme/Onc: DVT prophylaxis given Endo: Glucose is monitored Integ/MSK: Skin care per routine ICU protocol to prevent skin ulcers CODE: Full <Domenico Gomez - Last Filed: 06/21/17 15:11> Date of Encounter: 06/21/17 Time of Encounter: 07:51 Assessment and Plan (1) Acute and chronic respiratory failure Current Visit: Yes Status: Acute Neuropsych: Patient is awake and alert on minimal sedation. She is able to follow commands and interact. She is able to understand her plan of care. Pulm: Acute on chronic respiratory failure in the setting of obesity hypoventilation syndrome. At this point the patient's only realistic chance for long-term success is a tracheostomy. This was agreed upon by 2 pulmonologists that is seen and evaluated the patient. This was discussed with the patient and she agrees with the plan. ENT has been consulted, planned for tracheostomy tomorrow. Cards: Severe right heart failure in the setting of cor pulmonale with possible underlying pulmonary arterial hypertension. Continue milrinone and Levophed for blood pressure support. FEN-GI: Patient is having some small residuals but is able to tolerate tube feeds. We will hold tube feeds as the patient is set for surgery tomorrow. Renal: BLANCA with oliguria. Urine output is improving however patient still does not have adequate urine output. Is receiving intermittent hemodialysis per nephrology. ID: No evidence of infection. We will continue to monitor closely for signs of infection. Continue standard precautions. Heme/Onc: Hemoglobin 7.9 but stable. No evidence of active bleeding. Endo: Blood sugars under good control, continue sliding scale insulin. Integ/MSK: Continue skin care per ICU protocol. CODE: Full code Qualifiers: Respiratory failure complication: hypoxia and hypercapnia Qualified Code(s) : J96.21 - Acute and chronic respiratory failure with hypoxia; J96.22 - Acute and chronic respiratory failure with hypercapnia (2) Acute on chronic renal failure Current Visit: Yes Status: Acute Qualifiers: Acute renal failure type: unspecified Chronic kidney disease stage: stage 3 (moderate) Qualified Code(s): N17.9 - Acute kidney failure, unspecified; N18.3 - Chronic kidney disease, stage 3 (moderate) (3) Chronic systolic (congestive) heart failure Current Visit: Yes Status: Chronic (4) Cor pulmonale Current Visit: Yes Status: Acute (5) Moderate to severe pulmonary hypertension Current Visit: Yes Status: Chronic (6) Morbid obesity with BMI of 50.0-59.9, adult Current Visit: No Status: Chronic (7) SMITA treated with BiPAP Current Visit: Yes Status: Chronic Subjective Principal diagnosis: Respiratory insufficiency Interval history: Patient seen and examined at bedside. Patient is intubated and mildly sedated. We will follow commands and answer questions appropriately. No evidence of acute distress. No acute events overnight. Objective PUL Vital signs: Last Vital Signs Temp 98.3 F 06/21/17 03:47 Pulse 96 06/21/17 07:00 Resp 19 06/21/17 07:00 BP 115/71 06/21/17 07:00 Pulse Ox 96 06/21/17 07:00 Ventilator Settings Ventilator Settings: Ventilator Settings, Last 8 Hours Ventilator Mode A/C Ventilator Mode A/C Ventilator Mode A/C Ventilator Mode A/C Ventilator Mode A/C Ventilator Mode VC+ Ventilator Mode VC+ Ventilator Mode VC+ Ventilator Mode VC+ Ventilator Mode VC+ Ventilator Mode VC+ Ventilator Mode VC+ Ventilator Mode VC+ Ventilator Mode VC+ Ventilator Tidal Volume 400 Setting Ventilator Tidal Volume 400 Setting Ventilator Tidal Volume 400 Setting Ventilator Tidal Volume 300 Setting Ventilator Tidal Volume 300 Setting Ventilator Tidal Volume 300 Setting Ventilator Tidal Volume 300 Setting Ventilator Tidal Volume 300 Setting Ventilator Tidal Volume 300 Setting Ventilator Tidal Volume 300 Setting Ventilator Tidal Volume 300 Setting Ventilator Tidal Volume 300 Setting Ventilator Tidal Volume 300 Setting Ventilator Tidal Volume 300 Setting Ventilator Respiratory Rate 14 Setting Ventilator Respiratory Rate 14 Setting Ventilator Respiratory Rate 14 Setting Ventilator Respiratory Rate 12 Setting Ventilator Respiratory Rate 12 Setting Ventilator Respiratory Rate 12 Setting Ventilator Respiratory Rate 12 Setting Ventilator Respiratory Rate 12 Setting Ventilator Respiratory Rate 12 Setting Ventilator Respiratory Rate 12 Setting Ventilator Respiratory Rate 12 Setting Ventilator Respiratory Rate 12 Setting Ventilator Respiratory Rate 12 Setting Ventilator Respiratory Rate 12 Setting Actual Respiratory Rate 21 Actual Respiratory Rate 21 Actual Respiratory Rate 20 Actual Respiratory Rate 20 Actual Respiratory Rate 21 Actual Respiratory Rate 14 Actual Respiratory Rate 20 Actual Respiratory Rate 21 Actual Respiratory Rate 20 Actual Respiratory Rate 19 Actual Respiratory Rate 16 Actual Respiratory Rate 18 Positive End Expiratory 5 Pressure Positive End Expiratory 5 Pressure Positive End Expiratory 5 Pressure Positive End Expiratory 5 Pressure Positive End Expiratory 5 Pressure Positive End Expiratory 5 Pressure Positive End Expiratory 5 Pressure Positive End Expiratory 5 Pressure Positive End Expiratory 5 Pressure Positive End Expiratory 5 Pressure Positive End Expiratory 5 Pressure Positive End Expiratory 5 Pressure Positive End Expiratory 5 Pressure Positive End Expiratory 5 Pressure Peak Inspiratory Airway 16 Pressure Peak Inspiratory Airway 16 Pressure Peak Inspiratory Airway 20 Pressure Peak Inspiratory Airway 17 Pressure Peak Inspiratory Airway 14 Pressure Peak Inspiratory Airway 13 Pressure Peak Inspiratory Airway 12 Pressure Peak Inspiratory Airway 17 Pressure Peak Inspiratory Airway 13 Pressure Peak Inspiratory Airway 13 Pressure Peak Inspiratory Airway 11 Pressure Peak Inspiratory Airway 25 Pressure Results - Laboratory Findings CBC and BMP: 06/21/17 03:45 06/21/17 03:45 ABG ABG pH 7.32 pH Units (7.32-7.45) 06/21/17 05:23 ABG pCO2 76 mmHg (35-45) H* 06/21/17 05:23 ABG pO2 84 mmHg (85-104) L 06/21/17 05:23 ABG O2 Saturation 95 % (95-98) 06/21/17 05:23 PT/INR, D-dimer PT 13.2 Seconds (9.4-12.1) H 06/12/17 01:02 Abnormal lab findings: Abnormal lab results WBC 16.4 K/mcL (4.3-11.1) H 06/21/17 03:45 RBC 2.83 M/mcL (3.82-4.97) L 06/21/17 03:45 Hgb 7.9 g/dL (11.5-15.4) L 06/21/17 03:45 Hct 26.9 % (35.3-44.9) L 06/21/17 03:45 MCH 27.9 pg (28.0-33.3) L 06/21/17 03:45 MCHC 29.4 g/dL (31.6-35.5) L 06/21/17 03:45 RDW 17.5 % (11.5-14.5) H 06/21/17 03:45 Band Neutrophils % 12.0 % (0-4) H 06/21/17 03:45 Neutrophils # 12.5 K/mcL (1.6-8.9) H 06/21/17 03:45 Nucleated RBCs/100 WBC 0.3 /100 WBC (0) H 06/03/17 04:00 Reactive Lymphocytes Present (Not Present) A 06/01/17 03:30 Large Platelets Present (Not Present) A 06/17/17 03:00 Immature Plt Fraction 10.6 % (1.1-6.1) H 06/06/17 04:40 Polychromasia 1+ (Not Present) A 06/01/17 03:30 Hypochromasia Present (Not Present) A 06/17/17 03:00 Basophilic Stippling 1+ (Not Present) A 06/01/17 03:30 Anisocytosis 2+ (Not Present) A 06/15/17 05:53 Microcytosis Present (Not Present) A 06/17/17 03:00 Macrocytosis Present (Not Present) A 06/17/17 03:00 PT 13.2 Seconds (9.4-12.1) H 06/12/17 01:02 APTT 36.4 Seconds (26.0-36.0) H 06/12/17 01:02 ABG pCO2 76 mmHg (35-45) H* 06/21/17 05:23 ABG pO2 84 mmHg (85-104) L 06/21/17 05:23 ABG HCO3 39.2 mEQ/L (21-27) H 06/21/17 05:23 ABG Total CO2 41.5 mEq/L (20-26) H 06/21/17 05:23 ABG Base Excess 10.9 mEq/L (-2.0 to 3.0) H 06/21/17 05:23 VBG pH 7.50 pH Units (7.32-7.42) H 05/31/17 21:46 VBG pO2 202 mmHg (25-40) H 05/31/17 21:46 VBG HCO3 36.7 mEq/L (21-27) H 05/31/17 21:46 Mixed VBG pH 7.29 (7.34-7.36) L 05/31/17 21:46 Mixed VBG pCO2 89 mmHg (44-46) H 05/31/17 21:46 Mixed VBG pO2 73 mmHg (35-45) H 05/31/17 21:46 Mixed VBG Oxyhemoglobin 93.0 % (60-80) H 05/31/17 21:46 Sodium 134 mEq/L (136-145) L 06/21/17 03:45 Chloride 92 mEq/L (98-109) L 06/21/17 03:45 Carbon Dioxide 34 mEq/L (19-29) H 06/21/17 03:45 BUN 50 mg/dL (7-20) H 06/21/17 03:45 Creatinine 2.07 mg/dL (0.57-1.11) H 06/21/17 03:45 Est GFR ( Amer) 32 (> 60) L 06/21/17 03:45 Est GFR (Non-Af Amer) 26 (> 60) L 06/21/17 03:45 Glucose 115 mg/dL (70-99) H 06/21/17 03:45 POC Glucose 145 (58-89) H 06/21/17 07:22 Total Bilirubin 1.3 mg/dL (0.2-1.2) H 06/21/17 03:45 Direct Bilirubin 1.1 mg/dL (0.0-0.5) H 06/21/17 03:45 Alkaline Phosphatase 250 Units/L (38-126) H 06/21/17 03:45 Creatine Kinase 200 Units/L (29-168) H 06/01/17 03:06 Troponin I 0.36 ng/mL (0-0.03) H* 05/29/17 15:53 Albumin 1.9 g/dL (3.5-5.0) L 06/21/17 03:45 Globulin 4.2 g/dL (2.4-3.5) H 06/21/17 03:45 Albumin/Globulin Ratio 0.5 (1.1-2.2) L 06/21/17 03:45 Urine Clarity Hazy (Clear) A 05/29/17 18:15 Ur Specific [place] 1.026 (1.010-1.025) H 05/29/17 18:15 Urine Protein 30 mg/dL (Neg-Trace) H 05/29/17 18:15 Urine Ketones Trace mg/dL (Negative) H 05/29/17 18:15 Urine Bilirubin Small (Negative) H 05/29/17 18:15 Urine Microscopic WBC 15-30 per hpf (0-3) H 05/29/17 18:15 Ur Squamous Epith Cells Many per lpf (None-Few) H 05/29/17 18:15 Amorphous Sediment Moderate (Few) H 05/29/17 18:15 Urine Bacteria Moderate per hpf (None-Few) H 05/29/17 18:15 Hyaline Casts Moderate per lpf (None-Few) H 05/29/17 18:15 Ur Culture Indicated? YES (NO) A 05/29/17 18:15 - Microbiology Findings Microbiology Findings: Microbiology, Last 48 Hours 06/15/17 13:29 Blood Culture - Final Peripheral Venipuncture No growth. 06/15/17 13:29 Blood Culture - Final Peripheral Venipuncture No growth. - Clinical Findings Intake & Output: Intake & Output 06/20/17 06/20/17 06/21/17 15:59 23:59 07:59 Intake Total 629 / 629 700 / 700 458 / 458 Output Total 50 / 50 100 / 100 Balance 629 / 629 650 / 650 358 / 358 Weight 136.4 kg - VTE Documentation of Mechanical Device: Intermittent pneumatic compression device
[2017-06-21] MEDS: Budesonide/Formoterol 160/4.5 MDI IH SCH ×2 (08:23→20:43)
[2017-06-21] MEDS: Chlorhexidine Rinse 15 ML MOUTHWASH MM SCH ×2 (09:37→20:03)
[2017-06-21] MEDS: Docusate Oral Soln 100 MG/10 ML UDC PO SCH ×2 (09:37→20:27)
[2017-06-21] MEDS: Cholecalciferol (D-3) 1,000 UNIT TABLET PO SCH (09:38)
[2017-06-21] MEDS: Aspirin 81 MG TAB.CHEW PO SCH (09:38)
[2017-06-21] MEDS: Pantoprazole 40 MG VIAL IVP SCH (09:38)
[2017-06-21] MEDS: Nystatin OINT 15 GM TUBE TP SCH ×4 (09:41→20:19)
[2017-06-21] MEDS: Nystatin POWDER 30 GM BOTTLE TP SCH ×2 (09:41→17:21)
[2017-06-21] MEDS ORDERED: 0.9 % Sodium Chloride 250 ML IVC PRN (09:53)
[2017-06-21] MEDS ORDERED: Albumin 25% 12.5gm/50mL 12.5 GM/50 ML IV.SOLN IVPB PRN (09:53)
[2017-06-21] MEDS ORDERED: 0.9 % Sodium Chloride 1,000 ML PRIME SCH (10:00)
[2017-06-21] MEDS ORDERED: 0.9 % Sodium Chloride 2,000 ML ONE (10:35)
[2017-06-21] MEDS ORDERED: Albumin 25% 12.5gm/50mL 0 GM/0 ML IV.SOLN ONE (10:35)
--- NOTE | 2017-06-21 11:03 | ENT - Consult Note ---
Date of Encounter: 06/21/17 Time of Encounter: 11:00 Assessment and Plan (1) Chronic respiratory failure Current Visit: Yes Status: Chronic I agree a tracheotomy for both weaning off the ventilator and pulmonary support for at least the next few weeks is indicated. I discussed this with the resident and attending physician and called the OR. The surgery is scheduled for 3:15PM tomorrow, 06/22/2017. An attempt was made to call a family member listed in her records and the phone has been disconnected. The patient is awake and alert and can write questions. I discussed the consent with the patient including but not limited to the risks of bleeding, infection, respiratory failure, hoarseness, scarring, cardiac arrest and . She has agreed to the procedure. She will need to be off all anticoagulants. Please stop her tube feeds after midnight. Please obtain coags and a Hgb/Hct in the the AM. Qualifiers: Qualified Code(s): J96.11 - Chronic respiratory failure with hypoxia; J96.12 - Chronic respiratory failure with hypercapnia History of Present Illness Consult date: 06/21/17 Reason for ENT Consult: trach placement Requesting physician: Domenico Gomez History of present illness: 46 yo female with pulmonary hypertension, heart failure and renal failure has been intubated several times. She is currently back in the ICU intubated. 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 Past Med Surg Social Fam HX - Past Medical History Medical history: arthritis, asthma, cardiomyopathy, CHF, COPD, diabetes, GERD, hypertension, osteoporosis, peripheral artery disease, venous stasis, other Psychiatric history: anxiety, depression, other - Past Surgical History Surgical History: herniorrhaphy, other - Social History Smoking Status: Former smoker Smokeless Tobacco Status: No Alcohol use: none Drug use: marijuana - Family History Son Adopted: No Family Member Ethnicity: Non- Living Status: Still Living Hx Family Cardiac Disorders: Yes Hx Family Respiratory Disorders: Yes Hx Family Cancer: No Hx Family GI Disorders: No Hx Family Endocrine Disorder: Yes Hx Family Neuromuscular Disorders: No Hx Family Neurologic Disorders: No Hx Family HEENT Disorders: No Hx Family Autoimmune Disorders: No Father Living Status: Hx Family Cardiac Disorders: Yes (enlarged heart) Hx Family Respiratory Disorders: (Emphysema) Hx Family Cancer: Yes (Lung and rectal cancer) Hx Family Endocrine Disorder: Yes (diabetic) Mother Living Status: Hx Family Cardiac Disorders: Yes (stents) Hx Family GI Disorders: Yes (GI bleed) Hx Family Endocrine Disorder: Yes (diabetic) Medications and Allergies Omeprazole [PriLOSEC] 20 mg PO DAILY 06/22/16 [History] Oxygen 3 l NS AD 06/22/16 [History] Albuterol Sulfate [Ventolin Hfa] 18 gm IH Q4H PRN #1 [email or web address] 04/25/17 [Rx] Tiotropium [Spiriva] 18 mcg IH DAILY #30 inh 04/25/17 [Rx] Cholecalciferol (D-3) [Vitamin D] 2,000 unit PO DAILY #60 tablet 05/06/17 [Rx] Furosemide [Lasix] 40 mg PO DAILY #30 tablet 05/14/17 [Rx] Albuterol Neb [Proventil Neb] 2.5 mg IH Q6H PRN 05/29/17 [History] Metoprolol [Lopressor] 25 mg PO BID 05/29/17 [History] Potassium Chloride [Klor-Con Sprinkle] 10 meq PO BID 05/29/17 [History] Allergies No Known Allergies Allergy (Verified 05/06/17 00:08) ENT Exam Initial Vital Signs Resp BP Pulse Ox 24 85/62 94 05/29/17 06:40 05/29/17 06:40 05/29/17 06:40 - General physical appearance well developed (The patient is awake and alert though intubated. She is overweight) - Eyes PERRL, normal ocular movement - ENT normal nares, normal mucosa, atraumatic, normocephalic, CN 2-12 grossly intact. negative: nasal discharge - Neck no masses, trachea midline (obese neck but able to palpate midline landmarks.) Exam Initial Vital Signs Resp BP Pulse Ox 24 85/62 94 05/29/17 06:40 05/29/17 06:40 05/29/17 06:40 Results - Labs 06/21/17 03:45 06/21/17 03:45 Abnormal lab results WBC 16.4 K/mcL (4.3-11.1) H 06/21/17 03:45 RBC 2.83 M/mcL (3.82-4.97) L 06/21/17 03:45 Hgb 7.9 g/dL (11.5-15.4) L 06/21/17 03:45 Hct 26.9 % (35.3-44.9) L 06/21/17 03:45 MCH 27.9 pg (28.0-33.3) L 06/21/17 03:45 MCHC 29.4 g/dL (31.6-35.5) L 06/21/17 03:45 RDW 17.5 % (11.5-14.5) H 06/21/17 03:45 Band Neutrophils % 12.0 % (0-4) H 06/21/17 03:45 Neutrophils # 12.5 K/mcL (1.6-8.9) H 06/21/17 03:45 Nucleated RBCs/100 WBC 0.3 /100 WBC (0) H 06/03/17 04:00 Reactive Lymphocytes Present (Not Present) A 06/01/17 03:30 Large Platelets Present (Not Present) A 06/17/17 03:00 Immature Plt Fraction 10.6 % (1.1-6.1) H 06/06/17 04:40 Polychromasia 1+ (Not Present) A 06/01/17 03:30 Hypochromasia Present (Not Present) A 06/17/17 03:00 Basophilic Stippling 1+ (Not Present) A 06/01/17 03:30 Anisocytosis 2+ (Not Present) A 06/15/17 05:53 Microcytosis Present (Not Present) A 06/17/17 03:00 Macrocytosis Present (Not Present) A 06/17/17 03:00 PT 13.2 Seconds (9.4-12.1) H 06/12/17 01:02 APTT 36.4 Seconds (26.0-36.0) H 06/12/17 01:02 ABG pCO2 76 mmHg (35-45) H* 06/21/17 05:23 ABG pO2 84 mmHg (85-104) L 06/21/17 05:23 ABG HCO3 39.2 mEQ/L (21-27) H 06/21/17 05:23 ABG Total CO2 41.5 mEq/L (20-26) H 06/21/17 05:23 ABG Base Excess 10.9 mEq/L (-2.0 to 3.0) H 06/21/17 05:23 VBG pH 7.50 pH Units (7.32-7.42) H 05/31/17 21:46 VBG pO2 202 mmHg (25-40) H 05/31/17 21:46 VBG HCO3 36.7 mEq/L (21-27) H 05/31/17 21:46 Mixed VBG pH 7.29 (7.34-7.36) L 05/31/17 21:46 Mixed VBG pCO2 89 mmHg (44-46) H 05/31/17 21:46 Mixed VBG pO2 73 mmHg (35-45) H 05/31/17 21:46 Mixed VBG Oxyhemoglobin 93.0 % (60-80) H 05/31/17 21:46 Sodium 134 mEq/L (136-145) L 06/21/17 03:45 Chloride 92 mEq/L (98-109) L 06/21/17 03:45 Carbon Dioxide 34 mEq/L (19-29) H 06/21/17 03:45 BUN 50 mg/dL (7-20) H 06/21/17 03:45 Creatinine 2.07 mg/dL (0.57-1.11) H 06/21/17 03:45 Est GFR ( Amer) 32 (> 60) L 06/21/17 03:45 Est GFR (Non-Af Amer) 26 (> 60) L 06/21/17 03:45 Glucose 115 mg/dL (70-99) H 06/21/17 03:45 POC Glucose 145 (58-89) H 06/21/17 07:22 Total Bilirubin 1.3 mg/dL (0.2-1.2) H 06/21/17 03:45 Direct Bilirubin 1.1 mg/dL (0.0-0.5) H 06/21/17 03:45 Alkaline Phosphatase 250 Units/L (38-126) H 06/21/17 03:45 Creatine Kinase 200 Units/L (29-168) H 06/01/17 03:06 Troponin I 0.36 ng/mL (0-0.03) H* 05/29/17 15:53 Albumin 1.9 g/dL (3.5-5.0) L 06/21/17 03:45 Globulin 4.2 g/dL (2.4-3.5) H 06/21/17 03:45 Albumin/Globulin Ratio 0.5 (1.1-2.2) L 06/21/17 03:45 Urine Clarity Hazy (Clear) A 05/29/17 18:15 Ur Specific [place] 1.026 (1.010-1.025) H 05/29/17 18:15 Urine Protein 30 mg/dL (Neg-Trace) H 05/29/17 18:15 Urine Ketones Trace mg/dL (Negative) H 05/29/17 18:15 Urine Bilirubin Small (Negative) H 05/29/17 18:15 Urine Microscopic WBC 15-30 per hpf (0-3) H 05/29/17 18:15 Ur Squamous Epith Cells Many per lpf (None-Few) H 05/29/17 18:15 Amorphous Sediment Moderate (Few) H 05/29/17 18:15 Urine Bacteria Moderate per hpf (None-Few) H 05/29/17 18:15 Hyaline Casts Moderate per lpf (None-Few) H 05/29/17 18:15 Ur Culture Indicated? YES (NO) A 05/29/17 18:15 Diabetes panel 06/21/17 Range/Units 03:45 Sodium 134 L (136-145) mEq/L Potassium 4.1 (3.5-4.5) mEq/L Chloride 92 L (98-109) mEq/L Carbon Dioxide 34 H (19-29) mEq/L BUN 50 H (7-20) mg/dL Creatinine 2.07 H (0.57-1.11) mg/dL Glucose 115 H (70-99) mg/dL Calcium 9.4 (8.6-10.8) mg/dL AST 28 (5-34) Units/L ALT 14 (0-55) Units/L Alkaline Phosphatase 250 H (38-126) Units/L Albumin 1.9 L (3.5-5.0) g/dL Calcium panel 06/21/17 Range/Units 03:45 Calcium 9.4 (8.6-10.8) mg/dL Phosphorus 4.0 (2.3-4.7) mg/dL Albumin 1.9 L (3.5-5.0) g/dL Pituitary panel 06/21/17 Range/Units 03:45 Sodium 134 L (136-145) mEq/L Potassium 4.1 (3.5-4.5) mEq/L Chloride 92 L (98-109) mEq/L Carbon Dioxide 34 H (19-29) mEq/L BUN 50 H (7-20) mg/dL Creatinine 2.07 H (0.57-1.11) mg/dL Glucose 115 H (70-99) mg/dL Calcium 9.4 (8.6-10.8) mg/dL Adrenal panel 06/21/17 Range/Units 03:45 Sodium 134 L (136-145) mEq/L Potassium 4.1 (3.5-4.5) mEq/L Chloride 92 L (98-109) mEq/L Carbon Dioxide 34 H (19-29) mEq/L BUN 50 H (7-20) mg/dL Creatinine 2.07 H (0.57-1.11) mg/dL Glucose 115 H (70-99) mg/dL Calcium 9.4 (8.6-10.8) mg/dL Total Bilirubin 1.3 H (0.2-1.2) mg/dL AST 28 (5-34) Units/L ALT 14 (0-55) Units/L Alkaline Phosphatase 250 H (38-126) Units/L Albumin 1.9 L (3.5-5.0) g/dL All other labs normal. Consult Discharge Plan - Plan Referrals: Mi Warren, COMPUTER PATTERNMAKER [Advanced Practice Nurse] - (computers are down call back later )
--- NOTE | 2017-06-21 18:00 | Nephrology Progress Note ---
Date of Encounter: 06/21/17 Time of Encounter: 11:15 - Assessment and Plan (1) BLANCA (acute kidney injury) Current Visit: Yes Status: Acute [place] HD with UF goal of 2-3kg as tolerated with prn albumin for hypotension SCr worse after a day without HD yesterday, will monitor for renal recovery Avoid nephrotoxins if possible Maintain stable hemodynamics if possible UOP unimpressive at 175cc in the past 24hrs Limit obligate fluids if possible (2) Acute and chronic respiratory failure Current Visit: Yes Status: Acute Per primary team on biPAP with possible trach planned Qualifiers: Respiratory failure complication: hypoxia and hypercapnia Qualified Code(s) : J96.21 - Acute and chronic respiratory failure with hypoxia; J96.22 - Acute and chronic respiratory failure with hypercapnia (3) Hyperkalemia Current Visit: Yes Status: Acute Potassium remains normalized after 2 sessions of HD (4) Anemia Current Visit: No Status: Acute Hgb low and trending downward at 7.9 Transfusion parameters per primary team Qualifiers: Anemia type: unspecified type Qualified Code(s): D64.9 - Anemia, unspecified Subjective Principal diagnosis: Respiratory insufficiency Interval history: Interim events noted. Pt seen and examined on HD at bedside still intubated and awake, responsive. Objective - Vital Signs Vital signs: Vital Signs Temp Pulse Resp BP Pulse Ox 06/21/17 17:00 111 16 112/68 96 06/21/17 16:12 16 96 06/21/17 16:00 98.6 F 87 16 113/41 96 06/21/17 15:00 87 16 93/56 96 06/21/17 14:30 98 F 16 107/60 06/21/17 14:15 94/53 06/21/17 14:00 87 16 103/58 96 06/21/17 13:45 108/71 06/21/17 13:30 93/52 06/21/17 13:15 91/53 06/21/17 13:00 87 16 107/63 96 06/21/17 12:45 93/52 06/21/17 12:30 93/56 06/21/17 12:15 98/55 06/21/17 12:00 98.2 F 87 16 60/53 96 06/21/17 11:45 90/61 06/21/17 11:30 96/57 06/21/17 11:15 98.2 F 16 99/52 96 06/21/17 11:00 92 20 103/60 96 06/21/17 10:00 92 20 97/52 97 06/21/17 09:00 104 20 103/59 97 06/21/17 08:24 20 97 06/21/17 08:11 98.1 F 06/21/17 07:00 96 19 115/71 96 06/21/17 06:35 19 97/51 96 06/21/17 06:00 87 14 91/60 97 06/21/17 05:00 87 19 96/62 95 06/21/17 04:38 16 98/57 96 06/21/17 04:00 82 14 96/55 95 06/21/17 03:47 98.3 F 06/21/17 03:00 88 20 88/53 96 06/21/17 02:47 21 89/46 96 06/21/17 02:00 89 20 93/54 97 06/21/17 01:00 89 19 92/51 96 06/21/17 00:29 17 105/56 95 06/21/17 00:00 93 15 105/56 96 06/20/17 23:48 98.5 F 06/20/17 23:11 16 104/57 95 06/20/17 23:00 88 17 104/57 93 06/20/17 22:00 87 19 98/53 94 06/20/17 21:00 94 15 87/47 97 06/20/17 20:02 98.6 F 06/20/17 20:00 86 19 95/44 96 06/20/17 19:00 86 17 84/46 93 06/20/17 18:00 100 16 102/59 97 Intake and Output 06/21/17 06/21/17 06/21/17 07:59 15:59 23:59 Intake Total 458 / 458 1000 / 1000 204 / 204 Output Total 100 / 100 3675 / 3675 30 / 30 Balance 358 / 358 -2675 / -2675 174 / 174 Intake: IV Fluids 458 / 458 400 / 400 204 / 204 PRECEDEX 400 mcg In 100 100 / 100 200 / 200 100 / 100 ml @ 0.3 MCG/KG/HR 10.358 mls/hr IVC .[id number] [facility] Rx#:[id number] FentaNYL (PF) 1,000 MCG 100 / 100 100 / 100 In 0.9 % Sodium Chloride 80 ML @ 100 MCG/HR 10 mls /hr IVC CONT [facility] Rx#: [id number] Primacor Premix 20 MG/100 100 / 100 ML 20 mg In 100 ml @ 0. 25 MCG/KG/MIN 10.253 mls/ hr IVC .[id number] [place] Rx#: [id number] Levophed 4 MG In Dextrose 258 / 258 0 / 0 5% 250 ML @ 5 MCG/MIN 18 .75 mls/hr IVC CONT [facility] Rx#:[id number] Magnesium Sulfate 2 GM In 104 / 104 Dextrose 5% 100 ML @ 50 mls/hr IVPB Q6H PRN Rx#: [id number] Oral 0 / 0 Intake, Rinseback and 600 / 600 Flushes Output: Urine 60 / 60 30 / 30 Total Dialysis (HD) 3600 / 3600 Output Catheter 100 / 100 15 / 15 Other: # Urine Diapers 1 Weight 136.4 kg Blood Glucose* 110 145 143 Hemodialysis Net Fluid 3000 Removed (mL) Patient Weight 06/21/17 23:59 Weight 136.4 kg - Lab 06/21/17 03:45 06/21/17 03:45 Most recent lab results ABG pH 7.32 pH Units (7.32-7.45) 06/21/17 05:23 ABG pCO2 76 mmHg (35-45) H* 06/21/17 05:23 ABG pO2 84 mmHg (85-104) L 06/21/17 05:23 ABG HCO3 39.2 mEQ/L (21-27) H 06/21/17 05:23 ABG O2 Saturation 95 % (95-98) 06/21/17 05:23 Calcium 9.4 mg/dL (8.6-10.8) 06/21/17 03:45 Phosphorus 4.0 mg/dL (2.3-4.7) 06/21/17 03:45 Magnesium 1.7 mg/dL (1.6-2.6) 06/21/17 03:45 Urine Creatinine 88 mg/dL 06/17/17 07:15 Urine Sodium 27.0 mEq/L 06/17/17 07:15 - VTE Documentation of Mechanical Device: Intermittent pneumatic compression device Consult Discharge Plan - Plan Referrals: Mi Warren, OPERATIONS INTELLIGENCE SUPERINTENDENT [Advanced Practice Nurse] - (computers are down call back later )
[2017-06-21] MEDS: *HR* LORazepam 2 MG/ML VIAL IVP PRN (18:10)
[2017-06-21 18:37] LABS: Basophils # 0.1 K/mcL (0.0-0.2); Basophils % 0.3 %; Eosinophils # 0.1 K/mcL (0.0-0.6); Eosinophils % 0.6 %; Hematocrit 29.2 % (35.3-44.9); Hemoglobin 8.5 g/dL (11.5-15.4); Immature Granulocytes % 4.8 % (0-4); Lymphocytes % 4.9 %; Mean Corpuscular HGB Conc 29.1 g/dL (31.6-35.5); Mean Corpuscular Hemoglobin 28.1 pg (28.0-33.3); Mean Corpuscular Volume 96.7 fL (83.0-100.0); Mean Platelet Volume 11.2 fL (9.4-12.4); Monocytes # 0.9 K/mcL (0.0-1.3); Monocytes % 4.3 %; Platelet Count 314 K/mcL (140-400); Red Blood Count 3.02 M/mcL (3.82-4.97); Red Cell Distribution Width 17.5 % (11.5-14.5); Segmented Neutrophils % 85.1 %
[2017-06-21 18:49] LABS: Calcium 9.3 mg/dL (8.6-10.8); Magnesium 1.9 mg/dL (1.6-2.6)
[2017-06-22] MEDS: Norepinephrine 4 MG in D5% in Water 250 ML IVC SCH ×2 (02:06→20:18)
[2017-06-22] MEDS: Dexmedetomidine HCl 400 MCG/100 ML MLS IVC SCH ×5 (03:01→22:07)
[2017-06-22 03:41] LABS: Basophils % 0.2 %; Eosinophils # 0.2 K/mcL (0.0-0.6); Eosinophils % 1.1 %; Hematocrit 26.6 % (35.3-44.9); Hemoglobin 7.8 g/dL (11.5-15.4); Immature Granulocytes % 4.6 % (0-4); Lymphocytes % 5.2 %; Mean Corpuscular HGB Conc 29.3 g/dL (31.6-35.5); Mean Corpuscular Hemoglobin 28.2 pg (28.0-33.3); Mean Platelet Volume 11.5 fL (9.4-12.4); Monocytes % 4.9 %; Neutrophils # 16.7 K/mcL (1.6-8.9); Platelet Count 311 K/mcL (140-400); Red Blood Count 2.77 M/mcL (3.82-4.97); Red Cell Distribution Width 17.6 % (11.5-14.5)
[2017-06-22 03:44] LABS: INR 1.3; Prothrombin Time 14.6 Seconds (9.4-12.1)
[2017-06-22] MEDS: Lacri-Lube 3.5 GM TUBE BOTH EYES SCH ×5 (03:48→21:20)
[2017-06-22 03:54] LABS: Albumin 1.8 g/dL (3.5-5.0); Albumin/Globulin Ratio 0.4 (1.1-2.2); Bilirubin,Indirect 0.2 mg/dL (0.0-1.2); Bilirubin,Total 1.2 mg/dL (0.2-1.2); Calcium 9.1 mg/dL (8.6-10.8); Globulin 4.2 g/dL (2.4-3.5); Potassium 4.1 mEq/L (3.5-4.5)
[2017-06-22 04:41] LABS: ABG Base Excess 7.2 mEq/L (-2.0 to 3.0); ABG HCO3 34.5 mEQ/L (21-27); ABG Oxygen Saturation 94 % (95-98); ABG PCO2 67 mmHg (35-45); ABG PH 7.32 pH Units (7.32-7.45); ABG PO2 78 mmHg (85-104); ABG TCO2 36.6 mEq/L (20-26)
[2017-06-22 04:42] LABS: Blood Gas FiO2 60 %
[2017-06-22 05:47] LABS: Activated Partial Thrombo Time 30.3 Seconds (26.0-36.0)
[2017-06-22] MEDS: Insulin LISPRO 300 UNITS/3 ML VIAL SQ SCH ×5 (06:26→21:19)
--- NOTE | 2017-06-22 07:03 | Pulmonology Progress Note ---
<Domenico Gomez - Last Filed: 06/22/17 07:50> Date of Encounter: 06/22/17 Time of Encounter: 07:02 Assessment and Plan (1) Acute and chronic respiratory failure Current Visit: Yes Status: Acute Neuropsych: Patient is awake and alert on minimal sedation. She is able to follow commands and interact. She is able to understand her plan of care. Pulm: Acute on chronic respiratory failure in the setting of obesity hypoventilation syndrome. At this point the patient's only realistic chance for long-term success is a tracheostomy. This was agreed upon by 2 pulmonologists that is seen and evaluated the patient. Patient will undergo tracheostomy today. Cards: Severe right heart failure in the setting of cor pulmonale with possible underlying pulmonary arterial hypertension. Continue milrinone and Levophed for blood pressure support. Requirements for lymphadenopathy and decreasing. FEN-GI: Patient is having some small residuals but is able to tolerate tube feeds. We will hold tube feeds as the patient is set for surgery tomorrow. Renal: BLANCA with oliguria. Urine output is improving however patient still does not have adequate urine output. 3.6 L removed with dialysis yesterday. Continue intermittent dialysis per nephrology ID: No evidence of infection. We will continue to monitor closely for signs of infection. Continue standard precautions. Heme/Onc: Hemoglobin 7.8 but stable. No evidence of active bleeding. Given the patient is undergoing surgery today we will give him 1 unit of blood. Endo: Blood sugars under good control, continue sliding scale insulin. Integ/MSK: Continue skin care per ICU protocol. CODE: Full code Qualifiers: Respiratory failure complication: hypoxia and hypercapnia Qualified Code(s) : J96.21 - Acute and chronic respiratory failure with hypoxia; J96.22 - Acute and chronic respiratory failure with hypercapnia (2) Acute on chronic renal failure Current Visit: Yes Status: Acute Qualifiers: Acute renal failure type: unspecified Chronic kidney disease stage: stage 3 (moderate) Qualified Code(s): N17.9 - Acute kidney failure, unspecified; N18.3 - Chronic kidney disease, stage 3 (moderate) (3) Chronic systolic (congestive) heart failure Current Visit: Yes Status: Chronic (4) Cor pulmonale Current Visit: Yes Status: Acute (5) Moderate to severe pulmonary hypertension Current Visit: Yes Status: Chronic (6) Morbid obesity with BMI of 50.0-59.9, adult Current Visit: No Status: Chronic (7) SMITA treated with BiPAP Current Visit: Yes Status: Chronic Subjective Principal diagnosis: Respiratory insufficiency Interval history: Patient seen and examined at bedside. Patient is intubated and mildly sedated. We will follow commands and answer questions appropriately. No evidence of acute distress. Patient did have an episode of tachycardia last night however once the patients sedation was increased this improved greatly. Objective PUL Vital signs: Last Vital Signs Temp 98.4 F 06/22/17 04:49 Pulse 82 06/22/17 06:00 Resp 13 06/22/17 06:00 BP 96/50 06/22/17 06:00 Pulse Ox 97 06/22/17 06:00 General appearance: no acute distress ENT: oropharynx moist Effort: normal Auscultation: bilateral: diminished breath sounds Cardiovascular: regular rate and rhythm Gastrointestinal: hypoactive bowel sounds, soft, non-tender, non-distended Extremities: no cyanosis, no clubbing, edema (2+) normal mental status, non-focal exam Ventilator Settings Ventilator Settings: Ventilator Settings, Last 8 Hours Ventilator Mode VC+ Ventilator Mode VC+ Ventilator Mode A/C Ventilator Mode A/C Ventilator Mode A/C Ventilator Tidal Volume 400 Setting Ventilator Tidal Volume 400 Setting Ventilator Tidal Volume 400 Setting Ventilator Tidal Volume 400 Setting Ventilator Tidal Volume 400 Setting Ventilator Respiratory Rate 14 Setting Ventilator Respiratory Rate 14 Setting Ventilator Respiratory Rate 14 Setting Ventilator Respiratory Rate 14 Setting Ventilator Respiratory Rate 14 Setting Actual Respiratory Rate 20 Actual Respiratory Rate 16 Actual Respiratory Rate 15 Actual Respiratory Rate 18 Positive End Expiratory 5 Pressure Positive End Expiratory 5 Pressure Positive End Expiratory 5 Pressure Positive End Expiratory 5 Pressure Positive End Expiratory 5 Pressure Peak Inspiratory Airway 18 Pressure Peak Inspiratory Airway 23 Pressure Peak Inspiratory Airway 20 Pressure Peak Inspiratory Airway 14 Pressure Results - Laboratory Findings CBC and BMP: 06/22/17 03:30 06/22/17 03:30 ABG ABG pH 7.32 pH Units (7.32-7.45) 06/22/17 04:33 ABG pCO2 67 mmHg (35-45) H 06/22/17 04:33 ABG pO2 78 mmHg (85-104) L 06/22/17 04:33 ABG O2 Saturation 94 % (95-98) L 06/22/17 04:33 PT/INR, D-dimer PT 14.6 Seconds (9.4-12.1) H 06/22/17 03:30 Abnormal lab findings: Abnormal lab results WBC 19.9 K/mcL (4.3-11.1) H 06/22/17 03:30 RBC 2.77 M/mcL (3.82-4.97) L 06/22/17 03:30 Hgb 7.8 g/dL (11.5-15.4) L 06/22/17 03:30 Hct 26.6 % (35.3-44.9) L 06/22/17 03:30 MCHC 29.3 g/dL (31.6-35.5) L 06/22/17 03:30 RDW 17.6 % (11.5-14.5) H 06/22/17 03:30 Immature Gran % 4.6 % (0-4) H 06/22/17 03:30 Band Neutrophils % 12.0 % (0-4) H 06/21/17 03:45 Neutrophils # 16.7 K/mcL (1.6-8.9) H 06/22/17 03:30 Nucleated RBCs/100 WBC 0.3 /100 WBC (0) H 06/03/17 04:00 Reactive Lymphocytes Present (Not Present) A 06/01/17 03:30 Large Platelets Present (Not Present) A 06/17/17 03:00 Immature Plt Fraction 10.6 % (1.1-6.1) H 06/06/17 04:40 Polychromasia 1+ (Not Present) A 06/01/17 03:30 Hypochromasia Present (Not Present) A 06/17/17 03:00 Basophilic Stippling 1+ (Not Present) A 06/01/17 03:30 Anisocytosis 2+ (Not Present) A 06/15/17 05:53 Microcytosis Present (Not Present) A 06/17/17 03:00 Macrocytosis Present (Not Present) A 06/17/17 03:00 PT 14.6 Seconds (9.4-12.1) H 06/22/17 03:30 ABG pCO2 67 mmHg (35-45) H 06/22/17 04:33 ABG pO2 78 mmHg (85-104) L 06/22/17 04:33 ABG HCO3 34.5 mEQ/L (21-27) H 06/22/17 04:33 ABG Total CO2 36.6 mEq/L (20-26) H 06/22/17 04:33 ABG O2 Saturation 94 % (95-98) L 06/22/17 04:33 ABG Base Excess 7.2 mEq/L (-2.0 to 3.0) H 06/22/17 04:33 VBG pH 7.50 pH Units (7.32-7.42) H 05/31/17 21:46 VBG pO2 202 mmHg (25-40) H 05/31/17 21:46 VBG HCO3 36.7 mEq/L (21-27) H 05/31/17 21:46 Mixed VBG pH 7.29 (7.34-7.36) L 05/31/17 21:46 Mixed VBG pCO2 89 mmHg (44-46) H 05/31/17 21:46 Mixed VBG pO2 73 mmHg (35-45) H 05/31/17 21:46 Mixed VBG Oxyhemoglobin 93.0 % (60-80) H 05/31/17 21:46 Chloride 96 mEq/L (98-109) L 06/22/17 03:30 Carbon Dioxide 34 mEq/L (19-29) H 06/22/17 03:30 BUN 36 mg/dL (7-20) H 06/22/17 03:30 Creatinine 1.69 mg/dL (0.57-1.11) H 06/22/17 03:30 Est GFR ( Amer) 40 (> 60) L 06/22/17 03:30 Est GFR (Non-Af Amer) 33 (> 60) L 06/22/17 03:30 Glucose 139 mg/dL (70-99) H 06/22/17 03:30 POC Glucose 149 (58-89) H 06/22/17 04:35 Direct Bilirubin 1.0 mg/dL (0.0-0.5) H 06/22/17 03:30 Alkaline Phosphatase 225 Units/L (38-126) H 06/22/17 03:30 Creatine Kinase 200 Units/L (29-168) H 06/01/17 03:06 Troponin I 0.36 ng/mL (0-0.03) H* 05/29/17 15:53 Albumin 1.8 g/dL (3.5-5.0) L 06/22/17 03:30 Globulin 4.2 g/dL (2.4-3.5) H 06/22/17 03:30 Albumin/Globulin Ratio 0.4 (1.1-2.2) L 06/22/17 03:30 Urine Clarity Hazy (Clear) A 05/29/17 18:15 Ur Specific Free Soil 1.026 (1.010-1.025) H 05/29/17 18:15 Urine Protein 30 mg/dL (Neg-Trace) H 05/29/17 18:15 Urine Ketones Trace mg/dL (Negative) H 05/29/17 18:15 Urine Bilirubin Small (Negative) H 05/29/17 18:15 Urine Microscopic WBC 15-30 per hpf (0-3) H 05/29/17 18:15 Ur Squamous Epith Cells Many per lpf (None-Few) H 05/29/17 18:15 Amorphous Sediment Moderate (Few) H 05/29/17 18:15 Urine Bacteria Moderate per hpf (None-Few) H 05/29/17 18:15 Hyaline Casts Moderate per lpf (None-Few) H 05/29/17 18:15 Ur Culture Indicated? YES (NO) A 05/29/17 18:15 - Microbiology Findings Microbiology Findings: Microbiology, Last 48 Hours 06/15/17 13:29 Blood Culture - Final Peripheral Venipuncture No growth. 06/15/17 13:29 Blood Culture - Final Peripheral Venipuncture No growth. - Clinical Findings Intake & Output: Intake & Output 06/21/17 06/21/17 06/22/17 15:59 23:59 07:59 Intake Total 1000 / 1000 709 / 709 391 / 391 Output Total 3675 / 3675 Balance -2675 / -2675 679 / 679 366 / 366 - VTE Documentation of Mechanical Device: Intermittent pneumatic compression device Consult Discharge Plan - Plan Referrals: Mi Warren, [facility] [Advanced Practice Nurse] - (computers are down call back later ) <Ronald Stevens - Last Filed: 06/22/17 12:35> Date of Encounter: 06/22/17 Assessment and Plan (1) Acute and chronic respiratory failure Current Visit: Yes Status: Acute Qualifiers: Respiratory failure complication: hypoxia and hypercapnia Qualified Code(s) : J96.21 - Acute and chronic respiratory failure with hypoxia; J96.22 - Acute and chronic respiratory failure with hypercapnia (2) Acute on chronic renal failure Current Visit: Yes Status: Acute Qualifiers: Acute renal failure type: unspecified Chronic kidney disease stage: stage 3 (moderate) Qualified Code(s): N17.9 - Acute kidney failure, unspecified; N18.3 - Chronic kidney disease, stage 3 (moderate) (3) Moderate to severe pulmonary hypertension Current Visit: Yes Status: Chronic (4) Morbid obesity with BMI of 50.0-59.9, adult Current Visit: No Status: Chronic (5) Candidal intertrigo Current Visit: No Status: Acute (6) SMITA treated with BiPAP Current Visit: Yes Status: Chronic (7) Cor pulmonale Current Visit: Yes Status: Acute (8) Chronic systolic (congestive) heart failure Current Visit: Yes Status: Chronic Objective PUL Vital signs: Last Vital Signs Temp 98.5 F 06/22/17 12:20 Pulse 99 06/22/17 12:20 Resp 20 06/22/17 12:20 BP 112/57 06/22/17 12:20 Pulse Ox 94 06/22/17 12:20 Ventilator Settings Ventilator Settings: Ventilator Settings, Last 8 Hours Ventilator Mode VC+ Ventilator Mode VC+ Ventilator Mode VC+ Ventilator Mode VC+ Ventilator Mode VC+ Ventilator Mode VC+ Ventilator Tidal Volume 400 Setting Ventilator Tidal Volume 400 Setting Ventilator Tidal Volume 400 Setting Ventilator Tidal Volume 400 Setting Ventilator Tidal Volume 400 Setting Ventilator Respiratory Rate 14 Setting Ventilator Respiratory Rate 14 Setting Ventilator Respiratory Rate 14 Setting Ventilator Respiratory Rate 14 Setting Ventilator Respiratory Rate 14 Setting Actual Respiratory Rate 19 Actual Respiratory Rate 18 Actual Respiratory Rate 19 Actual Respiratory Rate 18 Actual Respiratory Rate 17 Actual Respiratory Rate 17 Actual Respiratory Rate 20 Positive End Expiratory 5 Pressure Positive End Expiratory 5 Pressure Positive End Expiratory 5 Pressure Positive End Expiratory 5 Pressure Positive End Expiratory 5 Pressure Positive End Expiratory 5 Pressure Positive End Expiratory 5 Pressure Peak Inspiratory Airway 22 Pressure Peak Inspiratory Airway 14 Pressure Peak Inspiratory Airway 14 Pressure Peak Inspiratory Airway 13 Pressure Peak Inspiratory Airway 15 Pressure Peak Inspiratory Airway 24 Pressure Peak Inspiratory Airway 18 Pressure Peak Inspiratory Airway 18 Pressure Results - Laboratory Findings CBC and BMP: 06/22/17 03:30 06/22/17 03:30 ABG ABG pH 7.32 pH Units (7.32-7.45) 06/22/17 04:33 ABG pCO2 67 mmHg (35-45) H 06/22/17 04:33 ABG pO2 78 mmHg (85-104) L 06/22/17 04:33 ABG O2 Saturation 94 % (95-98) L 06/22/17 04:33 PT/INR, D-dimer PT 14.6 Seconds (9.4-12.1) H 06/22/17 03:30 Abnormal lab findings: Abnormal lab results WBC 19.9 K/mcL (4.3-11.1) H 06/22/17 03:30 RBC 2.77 M/mcL (3.82-4.97) L 06/22/17 03:30 Hgb 7.8 g/dL (11.5-15.4) L 06/22/17 03:30 Hct 26.6 % (35.3-44.9) L 06/22/17 03:30 MCHC 29.3 g/dL (31.6-35.5) L 06/22/17 03:30 RDW 17.6 % (11.5-14.5) H 06/22/17 03:30 Immature Gran % 4.6 % (0-4) H 06/22/17 03:30 Band Neutrophils % 12.0 % (0-4) H 06/21/17 03:45 Neutrophils # 16.7 K/mcL (1.6-8.9) H 06/22/17 03:30 Nucleated RBCs/100 WBC 0.3 /100 WBC (0) H 06/03/17 04:00 Reactive Lymphocytes Present (Not Present) A 06/01/17 03:30 Large Platelets Present (Not Present) A 06/17/17 03:00 Immature Plt Fraction 10.6 % (1.1-6.1) H 06/06/17 04:40 Polychromasia 1+ (Not Present) A 06/01/17 03:30 Hypochromasia Present (Not Present) A 06/17/17 03:00 Basophilic Stippling 1+ (Not Present) A 06/01/17 03:30 Anisocytosis 2+ (Not Present) A 06/15/17 05:53 Microcytosis Present (Not Present) A 06/17/17 03:00 Macrocytosis Present (Not Present) A 06/17/17 03:00 PT 14.6 Seconds (9.4-12.1) H 06/22/17 03:30 ABG pCO2 67 mmHg (35-45) H 06/22/17 04:33 ABG pO2 78 mmHg (85-104) L 06/22/17 04:33 ABG HCO3 34.5 mEQ/L (21-27) H 06/22/17 04:33 ABG Total CO2 36.6 mEq/L (20-26) H 06/22/17 04:33 ABG O2 Saturation 94 % (95-98) L 06/22/17 04:33 ABG Base Excess 7.2 mEq/L (-2.0 to 3.0) H 06/22/17 04:33 VBG pH 7.50 pH Units (7.32-7.42) H 05/31/17 21:46 VBG pO2 202 mmHg (25-40) H 05/31/17 21:46 VBG HCO3 36.7 mEq/L (21-27) H 05/31/17 21:46 Mixed VBG pH 7.29 (7.34-7.36) L 05/31/17 21:46 Mixed VBG pCO2 89 mmHg (44-46) H 05/31/17 21:46 Mixed VBG pO2 73 mmHg (35-45) H 05/31/17 21:46 Mixed VBG Oxyhemoglobin 93.0 % (60-80) H 05/31/17 21:46 Chloride 96 mEq/L (98-109) L 06/22/17 03:30 Carbon Dioxide 34 mEq/L (19-29) H 06/22/17 03:30 BUN 36 mg/dL (7-20) H 06/22/17 03:30 Creatinine 1.69 mg/dL (0.57-1.11) H 06/22/17 03:30 Est GFR ( Amer) 40 (> 60) L 06/22/17 03:30 Est GFR (Non-Af Amer) 33 (> 60) L 06/22/17 03:30 Glucose 139 mg/dL (70-99) H 06/22/17 03:30 POC Glucose 161 (58-89) H 06/22/17 12:23 Direct Bilirubin 1.0 mg/dL (0.0-0.5) H 06/22/17 03:30 Alkaline Phosphatase 225 Units/L (38-126) H 06/22/17 03:30 Creatine Kinase 200 Units/L (29-168) H 06/01/17 03:06 Troponin I 0.36 ng/mL (0-0.03) H* 05/29/17 15:53 Albumin 1.8 g/dL (3.5-5.0) L 06/22/17 03:30 Globulin 4.2 g/dL (2.4-3.5) H 06/22/17 03:30 Albumin/Globulin Ratio 0.4 (1.1-2.2) L 06/22/17 03:30 Urine Clarity Hazy (Clear) A 05/29/17 18:15 Ur Specific Free Soil 1.026 (1.010-1.025) H 05/29/17 18:15 Urine Protein 30 mg/dL (Neg-Trace) H 05/29/17 18:15 Urine Ketones Trace mg/dL (Negative) H 05/29/17 18:15 Urine Bilirubin Small (Negative) H 05/29/17 18:15 Urine Microscopic WBC 15-30 per hpf (0-3) H 05/29/17 18:15 Ur Squamous Epith Cells Many per lpf (None-Few) H 05/29/17 18:15 Amorphous Sediment Moderate (Few) H 05/29/17 18:15 Urine Bacteria Moderate per hpf (None-Few) H 05/29/17 18:15 Hyaline Casts Moderate per lpf (None-Few) H 05/29/17 18:15 Ur Culture Indicated? YES (NO) A 05/29/17 18:15 - Microbiology Findings Microbiology Findings: Microbiology, Last 48 Hours 06/15/17 13:29 Blood Culture - Final Peripheral Venipuncture No growth. 06/15/17 13:29 Blood Culture - Final Peripheral Venipuncture No growth. - Clinical Findings Intake & Output: Intake & Output 06/21/17 06/22/17 06/22/17 23:59 07:59 15:59 Intake Total 709 / 709 491 / 491 300 / 300 Output Total 30 / 30 25 / 25 20 / 20 Balance 679 / 679 466 / 466 280 / 280 - Attending Attestation I examined this patient and my medical decision-making was reviewed with the Resident Physician. I agree with the documented findings, disposition and treatment plan as described except to the extent set forth below. Patient seen and examined at bedside Labs, radiology, chart personally reviewed. All lines examined without evidence of infection. Management was reviewed during multidisciplinary critical care rounds. Neuropsych: Awake and alert following commands continue Precedex and infusion of narcotic for pain control and agitation wean as tolerated Pulm: Acute on chronic hypoxic hypercarbic respiratory failure with severe pulmonary hypertension and evidence of cor pulmonale secondary to obstructive sleep apnea and obesity hypoventilation COPD possible pulmonary arterial hypertension. Acceptable oxygenation and ventilation down plan for tracheostomy for long-term treatment issues related to other treatment modalities including noninvasive ventilation Cards: Acutely decompensated cor pulmonale on decreasing amount of vasopressor and inotropic support will wean the goal map 60 and evidence of improved endorgan perfusion FEN-GI: GI prophylaxis given continue enteral nutrition still complaining of severe abdominal pain without a clear etiology she has a history of cholelithiasis and this is reflected on imaging at this admission surgery does not feel it this is a acute cause of her pain lipase has been normal in the past and there is no evidence of bowel obstruction we will continue current course and increased bowel regimen along with discuss the case again with surgery and see if there is any other option for evaluation of this chronic abdominal pain Renal: JULIO C secondary to renal hypoperfusion from the heart failure urine output is picking up although still oliguric replace Miller catheter today as it had been leaking ID: No clear evidence of infection we will continue to monitor Heme/Onc: DVT prophylaxis given H&H stable we will transfuse a unit of PRBCs today for planned surgery Endo: Glucose monitored Integ/MSK: Care per routine protocol prevent ulcers CODE: Full code
[2017-06-22] MEDS: Budesonide/Formoterol 160/4.5 MDI IH SCH ×2 (07:43→21:04)
[2017-06-22] MEDS: Chlorhexidine Rinse 15 ML MOUTHWASH MM SCH ×2 (07:50→21:17)
[2017-06-22] MEDS: Pantoprazole 40 MG VIAL IVP SCH (07:50)
[2017-06-22] MEDS: Nystatin OINT 15 GM TUBE TP SCH ×4 (07:52→21:20)
[2017-06-22] MEDS: Aspirin 81 MG TAB.CHEW PO SCH (07:52)
[2017-06-22] MEDS: Docusate Oral Soln 100 MG/10 ML UDC PO SCH ×2 (07:52→21:17)
[2017-06-22] MEDS: Nystatin POWDER 30 GM BOTTLE TP SCH ×2 (07:52→21:19)
[2017-06-22] MEDS: Cholecalciferol (D-3) 1,000 UNIT TABLET PO SCH (07:52)
[2017-06-22] MEDS: FentaNYL (PF) 1,000 MCG in 0.9 % Sodium Chloride 80 ML IVC SCH ×2 (09:07→18:52)
--- NOTE | 2017-06-22 09:53 | Anesthesia Evaluation PreOp ---
Date of Encounter: 06/22/17 Time of Encounter: 09:57 - Past History Planned Operation: Tracheostomy Cardiac History: CHF (Right-sided heart failure and severe pulmonary hypertension (currently on milrinone drip); associated hypotension on levophed drip) Pulmonary History: Other (obesity hypoventilation syndrome, severe pulmonary hypertension causing Right-sided hypokinesis/heart failure) MALE IMPERSONATOR History: Denies Any Significant HX Other Medical History: Renal Alcohol Use: none Drug use: marijuana Medications and Allergies Omeprazole [PriLOSEC] 20 mg PO DAILY 06/22/16 [History] Oxygen 3 l NS AD 06/22/16 [History] Albuterol Sulfate [Ventolin Hfa] 18 gm IH Q4H PRN #1 [email or web address] 04/25/17 [Rx] Tiotropium [Spiriva] 18 mcg IH DAILY #30 inh 04/25/17 [Rx] Cholecalciferol (D-3) [Vitamin D] 2,000 unit PO DAILY #60 tablet 05/06/17 [Rx] Furosemide [Lasix] 40 mg PO DAILY #30 tablet 05/14/17 [Rx] Albuterol Neb [Proventil Neb] 2.5 mg IH Q6H PRN 05/29/17 [History] Metoprolol [Lopressor] 25 mg PO BID 05/29/17 [History] Potassium Chloride [Klor-Con Sprinkle] 10 meq PO BID 05/29/17 [History] Allergies No Known Allergies Allergy (Verified 05/06/17 00:08) - Meds/Allergy Pre-op Review Medications Reviewed: Yes Allergies Reviewed: Yes Beta Blockers on Current Med List: No (not indicated with decompensated acute heart failure) Anesthesia Results - Labs 06/22/17 03:30 06/22/17 03:30 - Imaging EKG: report reviewed, image reviewed (ST with occ PVC's, incomplete RBBB, left posterior fasicular block) Additional studies: -2016 TTE: Impressions: Severly dilated and modertely hypokintic right ventricle. Overall, findings unchanged compared to prior study. -2016 TTE: Impressions: Mild LV systolic dysfunction, LVEF 45-50%. There is mild global LV hypokinesis. Moderate-severely dilated right ventricle. Moderate right ventricular hypokinesis. There is flattening of the IV septum consistent with RV pressure/volume overload. Moderately dilated right atrium. Severe tricuspid regurgitation. Severe pulmonary hypertension. Estimated RVSP = 71 mmHg. Anesthesia Exam Last Vital Signs Temp 98.5 F 06/22/17 07:00 Pulse 79 06/22/17 09:00 Resp 17 06/22/17 09:37 BP 98/54 06/22/17 09:37 Pulse Ox 97 06/22/17 09:37 Weight: 136 kg - HEENT Pupil (Motor): Pupils equal, EOMI Mallampati: Intubated - MALE IMPERSONATOR LOC: Oriented (oriented and alert) - Cardiac Rhythm: Regular Murmur: Systolic - Pulmonary Breath Sounds: bilateral Clear Respiratory Effort: Symmetrical Anesthesia Assess/Plan ASA Score: 4 (Hypotension on levophed, severe pulm htn on milrinone, Right- sided heart failure, acute decompensated CHF exacerbation, respiratory failure requiring intubation) Modified [place] Scale for Level of Consciousness: Cooperative, oriented, and tranquil Anesthetic Plan: General Monitoring Plan: Standard Monitors Recovery Plan: ICU
[2017-06-22] MEDS: MILRINONE 20 MG/100 ML IVC SCH ×2 (11:42→21:18)
--- NOTE | 2017-06-22 12:01 | Event Note ---
Date of Encounter: 06/22/17 Time of Encounter: 12:00 INR 1.3 and HGb stable at 7.8. Getting 1 U PRBC today and will proceed with tracheotomy as planned
[2017-06-22] MEDS ORDERED: 0.9 % Sodium Chloride 250 ML ONE (12:18)
[2017-06-22] MEDS ORDERED: *HR* Midazolam HCl 2 MG/2 ML VIAL ONE ×2 (13:56→16:28)
[2017-06-22] MEDS ORDERED: Lidocaine/EPI 1:200k 1% PF 10 ML VIAL ONE (13:56)
[2017-06-22] MEDS ORDERED: Lidocaine Jelly 2% 30 ML JEL..ML. ONE (13:56)
[2017-06-22] MEDS ORDERED: *HR* Remifentanil 2 MG VIAL IVP ONE (13:56)
[2017-06-22] MEDS ORDERED: EPHEDrine 50 MG/ML VIAL ONE (13:57)
[2017-06-22] MEDS ORDERED: ceFAZolin 3,000 MG in D5% in Water 100 ML IVPB ONE (14:16)
--- NOTE | 2017-06-22 16:07 | Operative Note ---
Date of procedure: 06/22/17 Pre-op diagnosis: respiratory insufficiency Procedure: Tracheotomy Surgeon: Nel Rowland Estimated blood loss (cc): 10 Condition: critical Disposition: ICU (but stable) Procedure in Detail: The patient was brought directly to the OR from the ICU. She was identified and Time Out procedure conducted per [facility] protocol. The patient was given general anesthesia through her previously placed endotracheal tube. Her head was extended and the midline trachea palpable. Tape was used under the chin and superior chest to moved the heavy skin folds out of position. 8 ml of 1% lido with epi was injected into the midline tracheal area. The patient was prepped and draped in the usual fashion. A 15 blade was used to make a horizontal incision over the mid trachea. Using a combination of sharp and blunt dissection as well as cauterization the platysma was split. A large vein to the right of the midline was identified and lightly dissected to allow it to move out of the incision site. A self retainer was placed in the wound and the area palpated again. Due to the patient's very short neck a tracheal hook was placed under the cricoid cartilage to elevate it in the wound. I was then able to visualize the trachea around rings 1-3. I determined that the trachea was quite small and tested a #6 xL Shiley balloon which was intact. An 11 blade was used to open the trachea around ring # 2. A hemostat and then tracheal dilator were used to dilate the opening. Anesthesia moved the endotracheal tube back until I was able to just see the tip. I attempted to place the #6 Trach tube but was unable to pass it into the trachea. I switched to a #5 and visually got it into position. During this time the patient's oxygen saturation dropped and anesthesia did not see tidal volume though air was escaping from the tube with exhalation. I removed the tube and placed it again to make sure. There was a question of a pulse and her oxygen was low so a code was called and proceeded per anesthesia protocol. I kept a hand on the trach tube until we were sure she had a normal sinus rhythm and oxygen saturation over 90%. The tracheotomy opening was partially sutured with 4-0 nylon. 2 Silk stay sutures were placed on either side of the tracheotomy tube and the cotton tie placed securely around the neck. The patient was awake and alert at the end of the procedure. Blood loss was less than 10 ml. She was stable to the ICU.
[2017-06-22] MEDS ORDERED: Dexamethasone 4 MG/ML VIAL ONE (16:28)
[2017-06-22] MEDS ORDERED: Ondansetron 4 MG/2 ML VIAL ONE (16:28)
--- NOTE | 2017-06-22 16:40 | Event Note ---
Date of Encounter: 06/22/17 Time of Encounter: 04:30 Post op check- Awake and alert complaining of chest pain. Oxygen saturation in the low 90s and no bleeding noted.
[2017-06-22 17:25] LABS: ABG Base Excess 3.5 mEq/L (-2.0 to 3.0); ABG HCO3 31.7 mEQ/L (21-27); ABG Oxygen Saturation 88 % (95-98); ABG PCO2 69 mmHg (35-45); ABG PH 7.27 pH Units (7.32-7.45); ABG PO2 62 mmHg (85-104); ABG TCO2 33.8 mEq/L (20-26)
[2017-06-22 17:27] LABS: Blood Gas FiO2 60 %
--- NOTE | 2017-06-22 17:48 | Electrocardiograph Report ---
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
[2017-06-22] MEDS: *HR* HYDROmorphone (PF) 1 MG/ML SYRINGE IVP PRN ×2 (18:53→20:13)
[2017-06-23] MEDS: Insulin LISPRO 300 UNITS/3 ML VIAL SQ SCH ×7 (00:21→23:56)
[2017-06-23] MEDS: Lacri-Lube 3.5 GM TUBE BOTH EYES SCH ×7 (00:22→23:57)
[2017-06-23] MEDS: Dexmedetomidine HCl 400 MCG/100 ML MLS IVC SCH ×6 (02:43→23:55)
[2017-06-23] MEDS: *HR* HYDROmorphone (PF) 1 MG/ML SYRINGE IVP PRN (02:46)
[2017-06-23 04:47] LABS: Albumin/Globulin Ratio 0.4 (1.1-2.2); Bilirubin,Direct 0.8 mg/dL (0.0-0.5); Bilirubin,Indirect 0.4 mg/dL (0.0-1.2); Bilirubin,Total 1.2 mg/dL (0.2-1.2); Calcium 9.4 mg/dL (8.6-10.8); Potassium 4.5 mEq/L (3.5-4.5); Total Protein 7.2 g/dL (6.0-8.3)
[2017-06-23 04:48] LABS: Albumin 2.2 g/dL (3.5-5.0)
[2017-06-23 04:58] LABS: ABG Base Excess 4.3 mEq/L (-2.0 to 3.0); ABG HCO3 34.4 mEQ/L (21-27); ABG Oxygen Saturation 84 % (95-98); ABG PH 7.21 pH Units (7.32-7.45); ABG PO2 59 mmHg (85-104)
[2017-06-23 05:02] LABS: Blood Gas FiO2 60 %
[2017-06-23 05:03] LABS: ABG PCO2 86 mmHg (35-45)
[2017-06-23] MEDS: FentaNYL (PF) 1,000 MCG in 0.9 % Sodium Chloride 80 ML IVC SCH ×5 (05:31→20:55)
--- NOTE | 2017-06-23 07:50 | ENT - Progress Note ---
Date of Encounter: 06/23/17 Time of Encounter: 07:48 - Assessment and Plan (1) Chronic respiratory failure Current Visit: Yes Status: Chronic The patient's trach site appears intact and per ICU attending there does not appear to be need as yet to change to a larger tube. Will continue observation and plan on trach change early next week. Qualifiers: Respiratory failure complication: hypoxia and hypercapnia Qualified Code(s) : J96.11 - Chronic respiratory failure with hypoxia; J96.12 - Chronic respiratory failure with hypercapnia Subjective Patient reports: other (Patient sleeping) Objective Initial Vital Signs Resp BP Pulse Ox 24 85/62 94 05/29/17 06:40 05/29/17 06:40 05/29/17 06:40 - General physical appearance no distress - Neck other (Trach site - clean, dry, intact) - Respiratory normal respiratory effort - Labs 06/22/17 03:30 06/23/17 04:20 Diabetes panel 06/23/17 Range/Units 04:20 Sodium 135 L (136-145) mEq/L Potassium 4.5 (3.5-4.5) mEq/L Chloride 95 L (98-109) mEq/L Carbon Dioxide 31 H (19-29) mEq/L BUN 44 H (7-20) mg/dL Creatinine 2.13 H (0.57-1.11) mg/dL Glucose 194 H (70-99) mg/dL Calcium 9.4 (8.6-10.8) mg/dL AST 20 (5-34) Units/L ALT 12 (0-55) Units/L Alkaline Phosphatase 260 H (38-126) Units/L Albumin 2.2 L D (3.5-5.0) g/dL Calcium panel 06/23/17 Range/Units 04:20 Calcium 9.4 (8.6-10.8) mg/dL Albumin 2.2 L D (3.5-5.0) g/dL Pituitary panel 06/23/17 Range/Units 04:20 Sodium 135 L (136-145) mEq/L Potassium 4.5 (3.5-4.5) mEq/L Chloride 95 L (98-109) mEq/L Carbon Dioxide 31 H (19-29) mEq/L BUN 44 H (7-20) mg/dL Creatinine 2.13 H (0.57-1.11) mg/dL Glucose 194 H (70-99) mg/dL Calcium 9.4 (8.6-10.8) mg/dL Adrenal panel 06/23/17 Range/Units 04:20 Sodium 135 L (136-145) mEq/L Potassium 4.5 (3.5-4.5) mEq/L Chloride 95 L (98-109) mEq/L Carbon Dioxide 31 H (19-29) mEq/L BUN 44 H (7-20) mg/dL Creatinine 2.13 H (0.57-1.11) mg/dL Glucose 194 H (70-99) mg/dL Calcium 9.4 (8.6-10.8) mg/dL Total Bilirubin 1.2 (0.2-1.2) mg/dL AST 20 (5-34) Units/L ALT 12 (0-55) Units/L Alkaline Phosphatase 260 H (38-126) Units/L Albumin 2.2 L D (3.5-5.0) g/dL - VTE Documentation of Mechanical Device: Intermittent pneumatic compression device Consult Discharge Plan - Plan Referrals: Mi Warren, NAIL MAKER [Advanced Practice Nurse] - (computers are down call back later )
[2017-06-23] MEDS: Budesonide/Formoterol 160/4.5 MDI IH SCH ×2 (07:59→22:50)
[2017-06-23 08:09] LABS: Hematocrit 29.1 % (35.3-44.9); Hemoglobin 8.6 g/dL (11.5-15.4); Mean Corpuscular HGB Conc 29.6 g/dL (31.6-35.5); Mean Corpuscular Hemoglobin 28.4 pg (28.0-33.3); Mean Platelet Volume 10.8 fL (9.4-12.4); Platelet Count 353 K/mcL (140-400); Red Blood Count 3.03 M/mcL (3.82-4.97); Red Cell Distribution Width 17.1 % (11.5-14.5)
--- NOTE | 2017-06-23 08:32 | Pulmonology Progress Note ---
<Ronald Stevens W - Last Filed: 06/23/17 10:57> Date of Encounter: 06/23/17 Assessment and Plan (1) Acute and chronic respiratory failure Current Visit: Yes Status: Acute Qualifiers: Respiratory failure complication: hypoxia and hypercapnia Qualified Code(s) : J96.21 - Acute and chronic respiratory failure with hypoxia; J96.22 - Acute and chronic respiratory failure with hypercapnia (2) Acute on chronic renal failure Current Visit: Yes Status: Acute Qualifiers: Acute renal failure type: unspecified Chronic kidney disease stage: stage 3 (moderate) Qualified Code(s): N17.9 - Acute kidney failure, unspecified; N18.3 - Chronic kidney disease, stage 3 (moderate) (3) Moderate to severe pulmonary hypertension Current Visit: Yes Status: Chronic (4) Morbid obesity with BMI of 50.0-59.9, adult Current Visit: No Status: Chronic (5) Candidal intertrigo Current Visit: No Status: Acute (6) SMITA treated with BiPAP Current Visit: Yes Status: Chronic (7) Cor pulmonale Current Visit: Yes Status: Acute (8) Chronic systolic (congestive) heart failure Current Visit: Yes Status: Chronic Objective PUL Vital signs: Last Vital Signs Temp 96.8 F L 06/23/17 07:53 Pulse 85 06/23/17 10:00 Resp 18 06/23/17 10:00 BP 113/65 06/23/17 10:00 Pulse Ox 95 06/23/17 10:00 Ventilator Settings Ventilator Settings: Ventilator Settings, Last 8 Hours Ventilator Mode VC+ Ventilator Mode VC+ Ventilator Mode VC+ Ventilator Mode VC+ Ventilator Mode VC+ Ventilator Mode VC+ Ventilator Tidal Volume 450 Setting Ventilator Tidal Volume 450 Setting Ventilator Tidal Volume 450 Setting Ventilator Tidal Volume 450 Setting Ventilator Tidal Volume 400 Setting Ventilator Tidal Volume 400 Setting Ventilator Respiratory Rate 18 Setting Ventilator Respiratory Rate 18 Setting Ventilator Respiratory Rate 18 Setting Ventilator Respiratory Rate 14 Setting Ventilator Respiratory Rate 14 Setting Ventilator Respiratory Rate 14 Setting Actual Respiratory Rate 18 Actual Respiratory Rate 18 Actual Respiratory Rate 18 Actual Respiratory Rate 14 Actual Respiratory Rate 16 Positive End Expiratory 5 Pressure Positive End Expiratory 5 Pressure Positive End Expiratory 5 Pressure Positive End Expiratory 5 Pressure Positive End Expiratory 5 Pressure Positive End Expiratory 5 Pressure Peak Inspiratory Airway 34 Pressure Peak Inspiratory Airway 34 Pressure Peak Inspiratory Airway 34 Pressure Peak Inspiratory Airway 33 Pressure Peak Inspiratory Airway 31 Pressure Results - Laboratory Findings CBC and BMP: 06/23/17 07:57 06/23/17 04:20 ABG ABG pH 7.21 pH Units (7.32-7.45) L 06/23/17 04:49 ABG pCO2 86 mmHg (35-45) H* 06/23/17 04:49 ABG pO2 59 mmHg (85-104) L 06/23/17 04:49 ABG O2 Saturation 84 % (95-98) L 06/23/17 04:49 PT/INR, D-dimer PT 14.6 Seconds (9.4-12.1) H 06/22/17 03:30 Abnormal lab findings: Abnormal lab results WBC 24.3 K/mcL (4.3-11.1) H 06/23/17 07:57 RBC 3.03 M/mcL (3.82-4.97) L 06/23/17 07:57 Hgb 8.6 g/dL (11.5-15.4) L 06/23/17 07:57 Hct 29.1 % (35.3-44.9) L 06/23/17 07:57 MCHC 29.6 g/dL (31.6-35.5) L 06/23/17 07:57 RDW 17.1 % (11.5-14.5) H 06/23/17 07:57 Immature Gran % 4.6 % (0-4) H 06/22/17 03:30 Neutrophils # 22.4 K/mcL (1.6-8.9) H 06/23/17 07:57 Lymphocytes # 0.5 K/mcL (0.6-4.6) L 06/23/17 07:57 Monocytes # 1.5 K/mcL (0.0-1.3) H 06/23/17 07:57 Nucleated RBCs/100 WBC 0.3 /100 WBC (0) H 06/03/17 04:00 Reactive Lymphocytes Present (Not Present) A 06/01/17 03:30 Large Platelets Present (Not Present) A 06/17/17 03:00 Immature Plt Fraction 10.6 % (1.1-6.1) H 06/06/17 04:40 Polychromasia 1+ (Not Present) A 06/01/17 03:30 Hypochromasia Present (Not Present) A 06/17/17 03:00 Basophilic Stippling 1+ (Not Present) A 06/01/17 03:30 Anisocytosis 1+ (Not Present) A 06/23/17 07:57 Microcytosis Present (Not Present) A 06/17/17 03:00 Macrocytosis Present (Not Present) A 06/17/17 03:00 PT 14.6 Seconds (9.4-12.1) H 06/22/17 03:30 ABG pH 7.21 pH Units (7.32-7.45) L 06/23/17 04:49 ABG pCO2 86 mmHg (35-45) H* 06/23/17 04:49 ABG pO2 59 mmHg (85-104) L 06/23/17 04:49 ABG HCO3 34.4 mEQ/L (21-27) H 06/23/17 04:49 ABG Total CO2 37.0 mEq/L (20-26) H 06/23/17 04:49 ABG O2 Saturation 84 % (95-98) L 06/23/17 04:49 ABG Base Excess 4.3 mEq/L (-2.0 to 3.0) H 06/23/17 04:49 VBG pH 7.50 pH Units (7.32-7.42) H 05/31/17 21:46 VBG pO2 202 mmHg (25-40) H 05/31/17 21:46 VBG HCO3 36.7 mEq/L (21-27) H 05/31/17 21:46 Mixed VBG pH 7.29 (7.34-7.36) L 05/31/17 21:46 Mixed VBG pCO2 89 mmHg (44-46) H 05/31/17 21:46 Mixed VBG pO2 73 mmHg (35-45) H 05/31/17 21:46 Mixed VBG Oxyhemoglobin 93.0 % (60-80) H 05/31/17 21:46 Sodium 135 mEq/L (136-145) L 06/23/17 04:20 Chloride 95 mEq/L (98-109) L 06/23/17 04:20 Carbon Dioxide 31 mEq/L (19-29) H 06/23/17 04:20 BUN 44 mg/dL (7-20) H 06/23/17 04:20 Creatinine 2.13 mg/dL (0.57-1.11) H 06/23/17 04:20 Est GFR ( Amer) 31 (> 60) L 06/23/17 04:20 Est GFR (Non-Af Amer) 25 (> 60) L 06/23/17 04:20 Glucose 194 mg/dL (70-99) H 06/23/17 04:20 POC Glucose 178 (58-89) H 06/23/17 07:26 Direct Bilirubin 0.8 mg/dL (0.0-0.5) H 06/23/17 04:20 Alkaline Phosphatase 260 Units/L (38-126) H 06/23/17 04:20 Creatine Kinase 200 Units/L (29-168) H 06/01/17 03:06 Troponin I 0.36 ng/mL (0-0.03) H* 05/29/17 15:53 Albumin 2.2 g/dL (3.5-5.0) L D 06/23/17 04:20 Globulin 5.0 g/dL (2.4-3.5) H 06/23/17 04:20 Albumin/Globulin Ratio 0.4 (1.1-2.2) L 06/23/17 04:20 Lipase 112 Units/L (8-78) H 06/22/17 12:35 Urine Clarity Hazy (Clear) A 05/29/17 18:15 Ur Specific Hasty 1.026 (1.010-1.025) H 05/29/17 18:15 Urine Protein 30 mg/dL (Neg-Trace) H 05/29/17 18:15 Urine Ketones Trace mg/dL (Negative) H 05/29/17 18:15 Urine Bilirubin Small (Negative) H 05/29/17 18:15 Urine Microscopic WBC 15-30 per hpf (0-3) H 05/29/17 18:15 Ur Squamous Epith Cells Many per lpf (None-Few) H 05/29/17 18:15 Amorphous Sediment Moderate (Few) H 05/29/17 18:15 Urine Bacteria Moderate per hpf (None-Few) H 05/29/17 18:15 Hyaline Casts Moderate per lpf (None-Few) H 05/29/17 18:15 Ur Culture Indicated? YES (NO) A 05/29/17 18:15 - Clinical Findings Intake & Output: Intake & Output 06/22/17 06/23/17 06/23/17 23:59 07:59 15:59 Intake Total 750 / 750 400 / 400 Output Total 175 / 175 50 / 50 Balance 575 / 575 350 / 350 Weight 135.365 kg Consult Discharge Plan - Plan Referrals: Mi Warren, ALTERATION WORKER [Advanced Practice Nurse] - (computers are down call back later ) - Attending Attestation I examined this patient and my medical decision-making was reviewed with the Resident Physician. I agree with the documented findings, disposition and treatment plan as described except to the extent set forth below. Patient seen and examined at bedside Labs, radiology, chart personally reviewed. All lines examined without evidence of infection. Management was reviewed during multidisciplinary critical care rounds. Neuropsych: Awake and alert today she is able to follow commands a little more somnolent with increased dose of narcotics for analgesia Pulm: Acute on chronic hypercarbic hypercapnic respiratory failure intubated status post tracheostomy yesterday she has a small size 5 Shirely trach which along with hypoventilation has resulted in decreased ventilation and oxygenation I have adjusted her vent to accommodate for this. Cards: Status post cardiac arrest yesterday this was one cycle related to transient hypoxemia no clear neurological sequelae related to this. She has decompensated right heart failure for which she is receiving vasopressor and inotropic support with improvement in urine output and feel that we can continue to wean this FEN-GI: Plan for placement a small bore feeding tube for enteral nutrition may need PEG tube down the line; chronic abdominal pain which I think is related to cholelithiasis and I discussed the case with surgery planned for HIDA scan when she is more stable and could potentially undergo surgical procedure will continue narcotic for pain control Renal: Acute kidney injury which is related to hypoperfusion with right heart failure urine output has improved and we will continue to monitor this she is receiving intermittent renal replacement therapy on an as-needed basis and we are replacing her electrolytes per the protocol ID: She is a persistent leukocytosis which may be in part related to hepatobiliary etiology; cultures will be obtained and if no improvement likely start abdominal coverage in the next 24 hours Heme/Onc: DVT prophylaxis given she has a chronic anemia and received 1 unit packed red blood cell transfusion yesterday H&H is stable today Endo: Glucose monitor Integ/MSK: Skin care per routine ICU protocol CODE: Full code <Nell Lgaunas - Last Filed: 06/23/17 16:14> Date of Encounter: 06/23/17 Time of Encounter: 08:32 Assessment and Plan (1) Acute and chronic respiratory failure Current Visit: Yes Status: Acute Patient initially presented to the hospital status post fall. She subsequently was found to have an increased troponin and to be in rhabdomyolysis. She began having respiratory distress. She was placed on BiPAP. She was emergently intubated for acute on chronic respiratory failure. She does have a history of coronary hypertension as well as decompensated right heart failure. She was intubated and placed on the ventilator. She was sedated with Versed as well as fentanyl. She was also placed on vasopressors and milrinone. She was diuresed with lasix. Patient was extubated and sent to the floor. She subsequently decompensated and had to be reintubated. At this time it was decided that the patient should have a trach. Yesterday the trach was placed. She did have an episode where she coded. She has been on Levofed overnight. We have also added milrinone. She is on fentanyl and Precedex for sedation. However she is alert and follows you throughout the room. Plan: Continue Levofed for a map of 60. Continue milrinone. Continue fentanyl and Precedex. Wean as tolerated. Heparin subcutaneous for DVT prophylaxis. Dobbhoff placement Began enteral feedings. Qualifiers: Respiratory failure complication: hypoxia and hypercapnia Qualified Code(s) : J96.21 - Acute and chronic respiratory failure with hypoxia; J96.22 - Acute and chronic respiratory failure with hypercapnia (2) Chronic systolic (congestive) heart failure Current Visit: Yes Status: Chronic Plan as above (3) Cor pulmonale Current Visit: Yes Status: Chronic Plan as above (4) Moderate to severe pulmonary hypertension Current Visit: Yes Status: Chronic Plan as above (5) Morbid obesity with BMI of 50.0-59.9, adult Current Visit: Yes Status: Chronic Plan as above (6) SMITA treated with BiPAP Current Visit: Yes Status: Chronic Plan as above (7) Acute on chronic renal failure Current Visit: Yes Status: Acute Subjective Principal diagnosis: Respiratory insufficiency Interval history: Patient stable overnight. Has had no events. She is currently on Levophed and milrinone. She is on Precedex and fentanyl for sedation. She had a trach placed yesterday. She subsequently coded during this event. She is alert and following me throughout the room prior. She is able to communicate. She complains of lower abdominal pain on exam. Lung sounds are clear. Dobbhoff was placed today so we can start enteral nutrition. We will get begin patient back on heparin for DVT prophylaxis today. Objective PUL Vital signs: Last Vital Signs Temp 96.8 F L 06/23/17 07:53 Pulse 82 06/23/17 08:00 Resp 18 06/23/17 08:00 BP 121/70 06/23/17 08:00 Pulse Ox 94 06/23/17 08:00 General appearance: no acute distress, alert Eyes: nonicteric ENT: oropharynx moist Neck: supple Effort: normal Auscultation: bilateral: clear Cardiovascular: regular rate and rhythm Gastrointestinal: normoactive bowel sounds, soft, tender (Diffusely. Patient points to left lower quadrant pain. Exam inhibited by patient's body habitus.) , non-distended Integumentary: normal Extremities: no cyanosis, no clubbing, pink and warm, pulses normal, edema ( Mild edema to lower extremities bilaterally) Musculoskeletal: no deformities Gait: normal posture normal mental status, non-focal exam, pupils equal and round tearful Ventilator Settings Ventilator Settings: Ventilator Settings, Last 8 Hours Ventilator Mode VC+ Ventilator Mode VC+ Ventilator Mode VC+ Ventilator Mode VC+ Ventilator Mode VC+ Ventilator Tidal Volume 450 Setting Ventilator Tidal Volume 450 Setting Ventilator Tidal Volume 400 Setting Ventilator Tidal Volume 400 Setting Ventilator Tidal Volume 400 Setting Ventilator Respiratory Rate 18 Setting Ventilator Respiratory Rate 14 Setting Ventilator Respiratory Rate 14 Setting Ventilator Respiratory Rate 14 Setting Ventilator Respiratory Rate 14 Setting Actual Respiratory Rate 18 Actual Respiratory Rate 14 Actual Respiratory Rate 16 Actual Respiratory Rate 15 Positive End Expiratory 5 Pressure Positive End Expiratory 5 Pressure Positive End Expiratory 5 Pressure Positive End Expiratory 5 Pressure Positive End Expiratory 5 Pressure Peak Inspiratory Airway 34 Pressure Peak Inspiratory Airway 33 Pressure Peak Inspiratory Airway 31 Pressure Peak Inspiratory Airway 27 Pressure Results - Laboratory Findings CBC and BMP: 06/23/17 07:57 06/23/17 04:20 ABG ABG pH 7.21 pH Units (7.32-7.45) L 06/23/17 04:49 ABG pCO2 86 mmHg (35-45) H* 06/23/17 04:49 ABG pO2 59 mmHg (85-104) L 06/23/17 04:49 ABG O2 Saturation 84 % (95-98) L 06/23/17 04:49 PT/INR, D-dimer PT 14.6 Seconds (9.4-12.1) H 06/22/17 03:30 Abnormal lab findings: Abnormal lab results WBC 24.3 K/mcL (4.3-11.1) H 06/23/17 07:57 RBC 3.03 M/mcL (3.82-4.97) L 06/23/17 07:57 Hgb 8.6 g/dL (11.5-15.4) L 06/23/17 07:57 Hct 29.1 % (35.3-44.9) L 06/23/17 07:57 MCHC 29.6 g/dL (31.6-35.5) L 06/23/17 07:57 RDW 17.1 % (11.5-14.5) H 06/23/17 07:57 Immature Gran % 4.6 % (0-4) H 06/22/17 03:30 Band Neutrophils % 12.0 % (0-4) H 06/21/17 03:45 Neutrophils # 16.7 K/mcL (1.6-8.9) H 06/22/17 03:30 Nucleated RBCs/100 WBC 0.3 /100 WBC (0) H 06/03/17 04:00 Reactive Lymphocytes Present (Not Present) A 06/01/17 03:30 Large Platelets Present (Not Present) A 06/17/17 03:00 Immature Plt Fraction 10.6 % (1.1-6.1) H 06/06/17 04:40 Polychromasia 1+ (Not Present) A 06/01/17 03:30 Hypochromasia Present (Not Present) A 06/17/17 03:00 Basophilic Stippling 1+ (Not Present) A 06/01/17 03:30 Anisocytosis 2+ (Not Present) A 06/15/17 05:53 Microcytosis Present (Not Present) A 06/17/17 03:00 Macrocytosis Present (Not Present) A 06/17/17 03:00 PT 14.6 Seconds (9.4-12.1) H 06/22/17 03:30 ABG pH 7.21 pH Units (7.32-7.45) L 06/23/17 04:49 ABG pCO2 86 mmHg (35-45) H* 06/23/17 04:49 ABG pO2 59 mmHg (85-104) L 06/23/17 04:49 ABG HCO3 34.4 mEQ/L (21-27) H 06/23/17 04:49 ABG Total CO2 37.0 mEq/L (20-26) H 06/23/17 04:49 ABG O2 Saturation 84 % (95-98) L 06/23/17 04:49 ABG Base Excess 4.3 mEq/L (-2.0 to 3.0) H 06/23/17 04:49 VBG pH 7.50 pH Units (7.32-7.42) H 05/31/17 21:46 VBG pO2 202 mmHg (25-40) H 05/31/17 21:46 VBG HCO3 36.7 mEq/L (21-27) H 05/31/17 21:46 Mixed VBG pH 7.29 (7.34-7.36) L 05/31/17 21:46 Mixed VBG pCO2 89 mmHg (44-46) H 05/31/17 21:46 Mixed VBG pO2 73 mmHg (35-45) H 05/31/17 21:46 Mixed VBG Oxyhemoglobin 93.0 % (60-80) H 05/31/17 21:46 Sodium 135 mEq/L (136-145) L 06/23/17 04:20 Chloride 95 mEq/L (98-109) L 06/23/17 04:20 Carbon Dioxide 31 mEq/L (19-29) H 06/23/17 04:20 BUN 44 mg/dL (7-20) H 06/23/17 04:20 Creatinine 2.13 mg/dL (0.57-1.11) H 06/23/17 04:20 Est GFR ( Amer) 31 (> 60) L 06/23/17 04:20 Est GFR (Non-Af Amer) 25 (> 60) L 06/23/17 04:20 Glucose 194 mg/dL (70-99) H 06/23/17 04:20 POC Glucose 178 (58-89) H 06/23/17 07:26 Direct Bilirubin 0.8 mg/dL (0.0-0.5) H 06/23/17 04:20 Alkaline Phosphatase 260 Units/L (38-126) H 06/23/17 04:20 Creatine Kinase 200 Units/L (29-168) H 06/01/17 03:06 Troponin I 0.36 ng/mL (0-0.03) H* 05/29/17 15:53 Albumin 2.2 g/dL (3.5-5.0) L D 06/23/17 04:20 Globulin 5.0 g/dL (2.4-3.5) H 06/23/17 04:20 Albumin/Globulin Ratio 0.4 (1.1-2.2) L 06/23/17 04:20 Lipase 112 Units/L (8-78) H 06/22/17 12:35 Urine Clarity Hazy (Clear) A 05/29/17 18:15 Ur Specific Hasty 1.026 (1.010-1.025) H 05/29/17 18:15 Urine Protein 30 mg/dL (Neg-Trace) H 05/29/17 18:15 Urine Ketones Trace mg/dL (Negative) H 05/29/17 18:15 Urine Bilirubin Small (Negative) H 05/29/17 18:15 Urine Microscopic WBC 15-30 per hpf (0-3) H 05/29/17 18:15 Ur Squamous Epith Cells Many per lpf (None-Few) H 05/29/17 18:15 Amorphous Sediment Moderate (Few) H 05/29/17 18:15 Urine Bacteria Moderate per hpf (None-Few) H 05/29/17 18:15 Hyaline Casts Moderate per lpf (None-Few) H 05/29/17 18:15 Ur Culture Indicated? YES (NO) A 05/29/17 18:15 - Microbiology Findings Microbiology Findings: Microbiology, Last 48 Hours 06/15/17 13:29 Blood Culture - Final Peripheral Venipuncture No growth. 06/15/17 13:29 Blood Culture - Final Peripheral Venipuncture No growth. - Diagnostic Findings Additional studies: Knee X-Ray 05/29/17 09:34 IMPRESSION: No acute osseous abnormality Tiny joint effusion, either posttraumatic or reactive Atherosclerosis. Correlate with clinical risk factors D/ / John Guillaume MD / John Guillaume MD Interpreting Provider: John Guillaume MD Guidance Ultrasound 05/31/17 00:00 IMPRESSION: Successful temporary hemodialysis catheter placement. The catheter tip lies in the distal SVC. D/ / Albino Kaur MD / Albino Kaur MD Interpreting Provider: Albino Kaur MD Insertion Non-Tunneled Catheter 05/31/17 00:00 IMPRESSION: Successful temporary hemodialysis catheter placement. The catheter tip lies in the distal SVC. D/ / Albino Kaur MD / Albino Kaur MD Interpreting Provider: Albino Kaur MD Chest CTA 06/04/17 17:34 IMPRESSION: 1. No evidence of pulmonary embolus. 2. Cardiomegaly with findings of acute congestive heart failure evidenced by mild pulmonary edema and small layering bilateral pleural effusions. 3. Enlarged main pulmonary artery as can be seen in the setting of pulmonary arterial hypertension. 4. Moderate ascites. 5. Mild hepatosplenomegaly. 6. Cholelithiasis. 7. Diffuse anasarca. D/ / Ernst Barber MD / Ernst Barber MD Interpreting Provider: Ernst aBrber MD Gallbladder Ultrasound 06/05/17 07:00 IMPRESSION: 1. Cholelithiasis, without sonographic evidence of cholecystitis. 2. Mild hepatomegaly. 3. Mild amount of nonspecific perihepatic ascites, similar to the recent CT study. 4. Obscuration of the pancreas by overlying bowel gas. 5. Normal sonographic appearance of the common bile duct and right kidney. D/ / 06/05/2017 15:10:17 Roberto Richter MD / albert Interpreting Provider: Robetro Richter MD Abdomen/Pelvis CT 06/12/17 00:46 IMPRESSION: 1. Mild bibasilar atelectasis versus pneumonia. 2. Cholelithiasis. 3. Cirrhosis with mild ascites. D/ / Tomas Spears MD / Tomas Spears MD Interpreting Provider: Tomas Spears MD Retroperitoneum Ultrasound 06/15/17 16:00 IMPRESSION: 1. No evidence of hydronephrosis. 2. Perihepatic ascites. D/ / Kati Aldana MD / Kati Aldana MD Interpreting Provider: Kati Aldana MD Chest X-Ray 06/23/17 06:00 IMPRESSION: Increased perihilar congestive changes with developing bilateral effusions and bibasilar atelectasis. D/ / Albino Bergman MD / Albino Bergman MD Interpreting Provider: Albino Bergman MD X-Ray 06/23/17 14:45 IMPRESSION: Feeding tube in place with its tip in the body of the stomach D/ / Domenico Patel MD / Domenico Patel MD Interpreting Provider: Domenico Patel MD - Clinical Findings Intake & Output: Intake & Output 06/22/17 06/23/17 06/23/17 23:59 07:59 15:59 Intake Total 750 / 750 300 / 300 Output Total 175 / 175 50 / 50 Balance 575 / 575 250 / 250 Weight 135.365 kg - VTE Documentation of Mechanical Device: Intermittent pneumatic compression device
[2017-06-23 08:36] LABS: Lymphocytes # 0.5 K/mcL (0.6-4.6); Monocytes # 1.5 K/mcL (0.0-1.3); Neutrophils # 22.4 K/mcL (1.6-8.9)
[2017-06-23 08:37] LABS: Anisocytosis 1+ (Not Present); Platelet Estimate Normal (Normal)
[2017-06-23] MEDS: Pantoprazole 40 MG VIAL IVP SCH (08:56)
[2017-06-23] MEDS: Chlorhexidine Rinse 15 ML MOUTHWASH MM SCH ×2 (08:56→20:42)
[2017-06-23] MEDS: Cholecalciferol (D-3) 1,000 UNIT TABLET PO SCH (08:57)
[2017-06-23] MEDS: Aspirin 81 MG TAB.CHEW PO SCH (08:57)
[2017-06-23] MEDS: Nystatin POWDER 30 GM BOTTLE TP SCH ×2 (08:57→20:41)
[2017-06-23] MEDS: Docusate Oral Soln 100 MG/10 ML UDC PO SCH ×2 (08:57→19:33)
[2017-06-23] MEDS: Nystatin OINT 15 GM TUBE TP SCH ×4 (08:58→20:41)
[2017-06-23] MEDS ORDERED: *HR* Heparin 10,000 UNIT/10 ML VIAL IV PRN (09:03)
[2017-06-23] MEDS ORDERED: 0.9 % Sodium Chloride 250 ML IVC PRN (09:09)
[2017-06-23] MEDS: MILRINONE 20 MG/100 ML IVC SCH ×3 (09:40→22:50)
[2017-06-23] MEDS: Norepinephrine 4 MG in D5% in Water 250 ML IVC SCH (13:45)
[2017-06-23] MEDS: *HR* Heparin 5,000 UNIT/ML VIAL SQ SCH ×2 (18:23→22:50)
[2017-06-24] MEDS: FentaNYL (PF) 1,000 MCG in 0.9 % Sodium Chloride 80 ML IVC SCH (01:00)
[2017-06-24 03:43] LABS: Albumin/Globulin Ratio 0.4 (1.1-2.2); Bilirubin,Direct 0.6 mg/dL (0.0-0.5); Bilirubin,Indirect 0.3 mg/dL (0.0-1.2); Bilirubin,Total 0.9 mg/dL (0.2-1.2); Calcium 8.9 mg/dL (8.6-10.8); Globulin 4.1 g/dL (2.4-3.5); Magnesium 1.8 mg/dL (1.6-2.6); Potassium 4.1 mEq/L (3.5-4.5); Total Protein 5.9 g/dL (6.0-8.3)
[2017-06-24 03:45] LABS: Albumin 1.8 g/dL (3.5-5.0)
[2017-06-24] MEDS: Insulin LISPRO 300 UNITS/3 ML VIAL SQ SCH ×5 (04:09→20:38)
[2017-06-24] MEDS: Dexmedetomidine HCl 400 MCG/100 ML MLS IVC SCH ×6 (04:09→23:15)
[2017-06-24] MEDS: Lacri-Lube 3.5 GM TUBE BOTH EYES SCH ×5 (04:09→20:38)
[2017-06-24] MEDS: Magnesium Sulfate 2 GM in D5% in Water 100 ML IVPB PRN (05:14)
[2017-06-24] MEDS: MILRINONE 20 MG/100 ML IVC SCH ×4 (05:14→20:37)
[2017-06-24] MEDS: FentaNYL (PF) 3,000 MCG in 0.9 % Sodium Chloride 240 ML IVC SCH ×2 (05:27→20:48)
[2017-06-24] MEDS: *HR* Heparin 5,000 UNIT/ML VIAL SQ SCH ×2 (05:57→17:02)
[2017-06-24 06:25] LABS: ABG Base Excess 5.1 mEq/L (-2.0 to 3.0); ABG HCO3 32.2 mEQ/L (21-27); ABG Oxygen Saturation 94 % (95-98); ABG PCO2 61 mmHg (35-45); ABG PH 7.33 pH Units (7.32-7.45); ABG PO2 75 mmHg (85-104); ABG TCO2 34.1 mEq/L (20-26)
[2017-06-24 06:27] LABS: Blood Gas FiO2 60 %
[2017-06-24] MEDS: Budesonide/Formoterol 160/4.5 MDI IH SCH ×2 (07:56→19:52)
[2017-06-24] MEDS: Pantoprazole 40 MG VIAL IVP SCH (08:20)
[2017-06-24] MEDS: Chlorhexidine Rinse 15 ML MOUTHWASH MM SCH ×2 (08:20→20:41)
[2017-06-24] MEDS: Docusate Oral Soln 100 MG/10 ML UDC PO SCH ×2 (08:20→20:41)
[2017-06-24] MEDS: Lactulose Oral Soln 20 GM/30 ML UDC PO PRN (08:20)
[2017-06-24] MEDS: Nystatin OINT 15 GM TUBE TP SCH ×4 (08:27→20:38)
[2017-06-24] MEDS: Nystatin POWDER 30 GM BOTTLE TP SCH ×2 (08:28→20:38)
[2017-06-24] MEDS ORDERED: Furosemide 40 MG/4 ML VIAL IVP ONE (08:57)
--- NOTE | 2017-06-24 08:58 | Pulmonology Progress Note ---
<Nell Lagunas - Last Filed: 06/24/17 13:51> Date of Encounter: 06/24/17 Time of Encounter: 08:58 Assessment and Plan (1) Acute and chronic respiratory failure Current Visit: Yes Status: Acute Patient initially presented to the hospital status post fall. She subsequently was found to have an increased troponin and to be in rhabdomyolysis. She began having respiratory distress. She was placed on BiPAP. She was emergently intubated for acute on chronic respiratory failure. She does have a history of coronary hypertension as well as decompensated right heart failure. She was intubated and placed on the ventilator. She was sedated with Versed as well as fentanyl. She was also placed on vasopressors and milrinone. She was diuresed with lasix. Patient was extubated and sent to the floor. She subsequently decompensated and had to be reintubated. At this time it was decided that the patient should have a trach. Yesterday the trach was placed. She did have an episode where she coded. She has been on Levofed. We attempt to wean this and then added back due to her map decreasing. We will continue to attempt to wean We have also added milrinone. She is on fentanyl and Precedex for sedation. However she is alert and follows you throughout the room. She is able to communicate. She expresses that her belly does ache however on palpation she denied any pain. When questioned about this pain being chronic she shook her head yes. She appears less anxious than yesterday. We added Seroquel today to help with her anxiety. Plan: Continue Levofed for a map of 60. Continue milrinone. Continue fentanyl and Precedex. Wean as tolerated. Heparin subcutaneous for DVT prophylaxis. Dobbhoff placement Began enteral feedings. Seroquel for agitation. Qualifiers: Respiratory failure complication: hypoxia and hypercapnia Qualified Code(s) : J96.21 - Acute and chronic respiratory failure with hypoxia; J96.22 - Acute and chronic respiratory failure with hypercapnia (2) Chronic systolic (congestive) heart failure Current Visit: Yes Status: Chronic Plan as above (3) Cor pulmonale Current Visit: Yes Status: Chronic Plan as above (4) Moderate to severe pulmonary hypertension Current Visit: Yes Status: Chronic Plan as above (5) Morbid obesity with BMI of 50.0-59.9, adult Current Visit: Yes Status: Chronic Plan as above (6) SMITA treated with BiPAP Current Visit: Yes Status: Chronic Plan as above (7) Acute on chronic renal failure Current Visit: Yes Status: Acute Patient diuresing well. Creatinine has decreased. Plan: Continue to monitor urine output Continue to monitor creatinine Qualifiers: Acute renal failure type: unspecified Chronic kidney disease stage: stage 3 (moderate) Qualified Code(s): N17.9 - Acute kidney failure, unspecified; N18.3 - Chronic kidney disease, stage 3 (moderate) Subjective Principal diagnosis: Respiratory insufficiency Interval history: Patient stable overnight. Has had no events. She is currently on Levophed and milrinone. We will continue to attempt to wean the levofed. She is on Precedex and fentanyl for sedation. She had a trach placed. She also had a Dobbhoff placed. We are beginning enteral feedings yesterday. She is alert and following me throughout the room prior. She is able to communicate. She complains of lower abdominal pain on exam. Lung sounds are clear. Patient on heparin for DVT prophylaxis. Objective PUL Vital signs: Last Vital Signs Temp 98 F 06/24/17 07:45 Pulse 88 06/24/17 08:30 Resp 18 06/24/17 08:00 BP 93/52 06/24/17 08:00 Pulse Ox 96 06/24/17 08:00 General appearance: no acute distress, alert Eyes: nonicteric ENT: oropharynx moist Neck: supple Effort: normal Auscultation: bilateral: clear Cardiovascular: regular rate and rhythm Gastrointestinal: normoactive bowel sounds, soft, non-tender, non-distended Integumentary: normal, decubitus ulcer (To buttocks) Extremities: no cyanosis, no clubbing, pink and warm, pulses normal, no ischemia or petechiae, edema (Pitting to bilateral pedal area.) Gait: normal posture normal mental status Ventilator Settings Ventilator Settings: Ventilator Settings, Last 8 Hours Ventilator Mode VC+ Ventilator Mode VC+ Ventilator Mode VC+ Ventilator Mode VC+ Ventilator Mode VC+ Ventilator Mode VC+ Ventilator Mode VC+ Ventilator Tidal Volume 450 Setting Ventilator Tidal Volume 450 Setting Ventilator Tidal Volume 450 Setting Ventilator Tidal Volume 450 Setting Ventilator Tidal Volume 450 Setting Ventilator Tidal Volume 450 Setting Ventilator Tidal Volume 450 Setting Ventilator Respiratory Rate 18 Setting Ventilator Respiratory Rate 18 Setting Ventilator Respiratory Rate 18 Setting Ventilator Respiratory Rate 18 Setting Ventilator Respiratory Rate 18 Setting Ventilator Respiratory Rate 18 Setting Ventilator Respiratory Rate 18 Setting Actual Respiratory Rate 18 Actual Respiratory Rate 18 Actual Respiratory Rate 18 Actual Respiratory Rate 18 Actual Respiratory Rate 18 Actual Respiratory Rate 18 Positive End Expiratory 8 Pressure Positive End Expiratory 8 Pressure Positive End Expiratory 8 Pressure Positive End Expiratory 8 Pressure Positive End Expiratory 8 Pressure Positive End Expiratory 8 Pressure Positive End Expiratory 8 Pressure Peak Inspiratory Airway 35 Pressure Peak Inspiratory Airway 37 Pressure Peak Inspiratory Airway 35 Pressure Peak Inspiratory Airway 35 Pressure Peak Inspiratory Airway 35 Pressure Peak Inspiratory Airway 34 Pressure Results - Laboratory Findings CBC and BMP: 06/24/17 11:01 06/24/17 03:15 ABG ABG pH 7.33 pH Units (7.32-7.45) 06/24/17 06:12 ABG pCO2 61 mmHg (35-45) H 06/24/17 06:12 ABG pO2 75 mmHg (85-104) L 06/24/17 06:12 ABG O2 Saturation 94 % (95-98) L 06/24/17 06:12 PT/INR, D-dimer PT 14.6 Seconds (9.4-12.1) H 06/22/17 03:30 Abnormal lab findings: Abnormal lab results WBC 24.3 K/mcL (4.3-11.1) H 06/23/17 07:57 RBC 3.03 M/mcL (3.82-4.97) L 06/23/17 07:57 Hgb 8.6 g/dL (11.5-15.4) L 06/23/17 07:57 Hct 29.1 % (35.3-44.9) L 06/23/17 07:57 MCHC 29.6 g/dL (31.6-35.5) L 06/23/17 07:57 RDW 17.1 % (11.5-14.5) H 06/23/17 07:57 Immature Gran % 4.6 % (0-4) H 06/22/17 03:30 Neutrophils # 22.4 K/mcL (1.6-8.9) H 06/23/17 07:57 Lymphocytes # 0.5 K/mcL (0.6-4.6) L 06/23/17 07:57 Monocytes # 1.5 K/mcL (0.0-1.3) H 06/23/17 07:57 Nucleated RBCs/100 WBC 0.3 /100 WBC (0) H 06/03/17 04:00 Reactive Lymphocytes Present (Not Present) A 06/01/17 03:30 Large Platelets Present (Not Present) A 06/17/17 03:00 Immature Plt Fraction 10.6 % (1.1-6.1) H 06/06/17 04:40 Polychromasia 1+ (Not Present) A 06/01/17 03:30 Hypochromasia Present (Not Present) A 06/17/17 03:00 Basophilic Stippling 1+ (Not Present) A 06/01/17 03:30 Anisocytosis 1+ (Not Present) A 06/23/17 07:57 Microcytosis Present (Not Present) A 06/17/17 03:00 Macrocytosis Present (Not Present) A 06/17/17 03:00 PT 14.6 Seconds (9.4-12.1) H 06/22/17 03:30 ABG pCO2 61 mmHg (35-45) H 06/24/17 06:12 ABG pO2 75 mmHg (85-104) L 06/24/17 06:12 ABG HCO3 32.2 mEQ/L (21-27) H 06/24/17 06:12 ABG Total CO2 34.1 mEq/L (20-26) H 06/24/17 06:12 ABG O2 Saturation 94 % (95-98) L 06/24/17 06:12 ABG Base Excess 5.1 mEq/L (-2.0 to 3.0) H 06/24/17 06:12 VBG pH 7.50 pH Units (7.32-7.42) H 05/31/17 21:46 VBG pO2 202 mmHg (25-40) H 05/31/17 21:46 VBG HCO3 36.7 mEq/L (21-27) H 05/31/17 21:46 Mixed VBG pH 7.29 (7.34-7.36) L 05/31/17 21:46 Mixed VBG pCO2 89 mmHg (44-46) H 05/31/17 21:46 Mixed VBG pO2 73 mmHg (35-45) H 05/31/17 21:46 Mixed VBG Oxyhemoglobin 93.0 % (60-80) H 05/31/17 21:46 Sodium 135 mEq/L (136-145) L 06/24/17 03:15 Chloride 96 mEq/L (98-109) L 06/24/17 03:15 Carbon Dioxide 30 mEq/L (19-29) H 06/24/17 03:15 BUN 47 mg/dL (7-20) H 06/24/17 03:15 Creatinine 2.21 mg/dL (0.57-1.11) H 06/24/17 03:15 Est GFR ( Amer) 29 (> 60) L 06/24/17 03:15 Est GFR (Non-Af Amer) 24 (> 60) L 06/24/17 03:15 Glucose 168 mg/dL (70-99) H 06/24/17 03:15 POC Glucose 165 (58-89) H 06/24/17 07:47 Direct Bilirubin 0.6 mg/dL (0.0-0.5) H 06/24/17 03:15 Alkaline Phosphatase 193 Units/L (38-126) H 06/24/17 03:15 Creatine Kinase 200 Units/L (29-168) H 06/01/17 03:06 Troponin I 0.36 ng/mL (0-0.03) H* 05/29/17 15:53 Serum Total Protein 5.9 g/dL (6.0-8.3) L 06/24/17 03:15 Albumin 1.8 g/dL (3.5-5.0) L 06/24/17 03:15 Globulin 4.1 g/dL (2.4-3.5) H 06/24/17 03:15 Albumin/Globulin Ratio 0.4 (1.1-2.2) L 06/24/17 03:15 Lipase 112 Units/L (8-78) H 06/22/17 12:35 Urine Clarity Hazy (Clear) A 05/29/17 18:15 Ur Specific [place] 1.026 (1.010-1.025) H 05/29/17 18:15 Urine Protein 30 mg/dL (Neg-Trace) H 05/29/17 18:15 Urine Ketones Trace mg/dL (Negative) H 05/29/17 18:15 Urine Bilirubin Small (Negative) H 05/29/17 18:15 Urine Microscopic WBC 15-30 per hpf (0-3) H 05/29/17 18:15 Ur Squamous Epith Cells Many per lpf (None-Few) H 05/29/17 18:15 Amorphous Sediment Moderate (Few) H 05/29/17 18:15 Urine Bacteria Moderate per hpf (None-Few) H 05/29/17 18:15 Hyaline Casts Moderate per lpf (None-Few) H 05/29/17 18:15 Ur Culture Indicated? YES (NO) A 05/29/17 18:15 - Clinical Findings Intake & Output: Intake & Output 06/23/17 06/24/17 06/24/17 23:59 07:59 15:59 Intake Total 595 / 595 549 / 549 418 / 418 Output Total 100 / 100 150 / 150 Balance 495 / 495 399 / 399 418 / 418 Weight 132.3 kg - VTE Documentation of Mechanical Device: Intermittent pneumatic compression device Consult Discharge Plan - Plan Referrals: Mi Warren, GRAIN RECEIVER [Advanced Practice Nurse] - (computers are down call back later ) <Ronald Stevens - Last Filed: 06/24/17 14:11> Date of Encounter: 06/24/17 Assessment and Plan (1) Acute and chronic respiratory failure Current Visit: Yes Status: Acute Qualifiers: Respiratory failure complication: hypoxia and hypercapnia Qualified Code(s) : J96.21 - Acute and chronic respiratory failure with hypoxia; J96.22 - Acute and chronic respiratory failure with hypercapnia (2) Acute on chronic renal failure Current Visit: Yes Status: Acute Qualifiers: Acute renal failure type: unspecified Chronic kidney disease stage: stage 3 (moderate) Qualified Code(s): N17.9 - Acute kidney failure, unspecified; N18.3 - Chronic kidney disease, stage 3 (moderate) (3) Moderate to severe pulmonary hypertension Current Visit: Yes Status: Chronic (4) Morbid obesity with BMI of 50.0-59.9, adult Current Visit: Yes Status: Chronic (5) Candidal intertrigo Current Visit: No Status: Acute (6) SMITA treated with BiPAP Current Visit: Yes Status: Chronic (7) Cor pulmonale Current Visit: Yes Status: Acute (8) Chronic systolic (congestive) heart failure Current Visit: Yes Status: Chronic Objective PUL Vital signs: Last Vital Signs Temp 98.9 F 06/24/17 12:42 Pulse 95 06/24/17 14:00 Resp 18 06/24/17 14:00 BP 93/48 06/24/17 14:00 Pulse Ox 96 06/24/17 14:00 Ventilator Settings Ventilator Settings: Ventilator Settings, Last 8 Hours Ventilator Mode VC+ Ventilator Mode VC+ Ventilator Mode VC+ Ventilator Mode VC+ Ventilator Mode VC+ Ventilator Mode VC+ Ventilator Mode VC+ Ventilator Mode VC+ Ventilator Mode VC+ Ventilator Mode VC+ Ventilator Tidal Volume 450 Setting Ventilator Tidal Volume 450 Setting Ventilator Tidal Volume 45 Setting Ventilator Tidal Volume 450 Setting Ventilator Tidal Volume 450 Setting Ventilator Tidal Volume 450 Setting Ventilator Tidal Volume 450 Setting Ventilator Tidal Volume 450 Setting Ventilator Tidal Volume 450 Setting Ventilator Tidal Volume 450 Setting Ventilator Respiratory Rate 18 Setting Ventilator Respiratory Rate 18 Setting Ventilator Respiratory Rate 18 Setting Ventilator Respiratory Rate 18 Setting Ventilator Respiratory Rate 18 Setting Ventilator Respiratory Rate 18 Setting Ventilator Respiratory Rate 18 Setting Ventilator Respiratory Rate 18 Setting Ventilator Respiratory Rate 18 Setting Ventilator Respiratory Rate 18 Setting Actual Respiratory Rate 18 Actual Respiratory Rate 18 Actual Respiratory Rate 18 Actual Respiratory Rate 18 Actual Respiratory Rate 18 Actual Respiratory Rate 19 Actual Respiratory Rate 18 Actual Respiratory Rate 18 Actual Respiratory Rate 18 Positive End Expiratory 8 Pressure Positive End Expiratory 8 Pressure Positive End Expiratory 8 Pressure Positive End Expiratory 8 Pressure Positive End Expiratory 8 Pressure Positive End Expiratory 8 Pressure Positive End Expiratory 8 Pressure Positive End Expiratory 8 Pressure Positive End Expiratory 8 Pressure Positive End Expiratory 8 Pressure Peak Inspiratory Airway 35 Pressure Peak Inspiratory Airway 36 Pressure Peak Inspiratory Airway 35 Pressure Peak Inspiratory Airway 32 Pressure Peak Inspiratory Airway 32 Pressure Peak Inspiratory Airway 38 Pressure Peak Inspiratory Airway 35 Pressure Peak Inspiratory Airway 37 Pressure Peak Inspiratory Airway 35 Pressure Results - Laboratory Findings CBC and BMP: 06/24/17 11:01 06/24/17 03:15 ABG ABG pH 7.33 pH Units (7.32-7.45) 06/24/17 06:12 ABG pCO2 61 mmHg (35-45) H 06/24/17 06:12 ABG pO2 75 mmHg (85-104) L 06/24/17 06:12 ABG O2 Saturation 94 % (95-98) L 06/24/17 06:12 PT/INR, D-dimer PT 14.6 Seconds (9.4-12.1) H 06/22/17 03:30 Abnormal lab findings: Abnormal lab results WBC 18.4 K/mcL (4.3-11.1) H 06/24/17 11:01 RBC 2.83 M/mcL (3.82-4.97) L 06/24/17 11:01 Hgb 8.0 g/dL (11.5-15.4) L 06/24/17 11:01 Hct 26.6 % (35.3-44.9) L 06/24/17 11:01 MCHC 30.1 g/dL (31.6-35.5) L 06/24/17 11:01 RDW 17.1 % (11.5-14.5) H 06/24/17 11:01 Neutrophils # 15.9 K/mcL (1.6-8.9) H 06/24/17 11:01 Nucleated RBCs/100 WBC 0.3 /100 WBC (0) H 06/03/17 04:00 Reactive Lymphocytes Present (Not Present) A 06/01/17 03:30 Large Platelets Present (Not Present) A 06/17/17 03:00 Immature Plt Fraction 10.6 % (1.1-6.1) H 06/06/17 04:40 Polychromasia 1+ (Not Present) A 06/01/17 03:30 Hypochromasia Present (Not Present) A 06/17/17 03:00 Basophilic Stippling 1+ (Not Present) A 06/01/17 03:30 Anisocytosis 1+ (Not Present) A 06/23/17 07:57 Microcytosis Present (Not Present) A 06/17/17 03:00 Macrocytosis Present (Not Present) A 06/17/17 03:00 PT 14.6 Seconds (9.4-12.1) H 06/22/17 03:30 ABG pCO2 61 mmHg (35-45) H 06/24/17 06:12 ABG pO2 75 mmHg (85-104) L 06/24/17 06:12 ABG HCO3 32.2 mEQ/L (21-27) H 06/24/17 06:12 ABG Total CO2 34.1 mEq/L (20-26) H 06/24/17 06:12 ABG O2 Saturation 94 % (95-98) L 06/24/17 06:12 ABG Base Excess 5.1 mEq/L (-2.0 to 3.0) H 06/24/17 06:12 VBG pH 7.50 pH Units (7.32-7.42) H 05/31/17 21:46 VBG pO2 202 mmHg (25-40) H 05/31/17 21:46 VBG HCO3 36.7 mEq/L (21-27) H 05/31/17 21:46 Mixed VBG pH 7.29 (7.34-7.36) L 05/31/17 21:46 Mixed VBG pCO2 89 mmHg (44-46) H 05/31/17 21:46 Mixed VBG pO2 73 mmHg (35-45) H 05/31/17 21:46 Mixed VBG Oxyhemoglobin 93.0 % (60-80) H 05/31/17 21:46 Sodium 135 mEq/L (136-145) L 06/24/17 03:15 Chloride 96 mEq/L (98-109) L 06/24/17 03:15 Carbon Dioxide 30 mEq/L (19-29) H 06/24/17 03:15 BUN 47 mg/dL (7-20) H 06/24/17 03:15 Creatinine 2.21 mg/dL (0.57-1.11) H 06/24/17 03:15 Est GFR ( Amer) 29 (> 60) L 06/24/17 03:15 Est GFR (Non-Af Amer) 24 (> 60) L 06/24/17 03:15 Glucose 168 mg/dL (70-99) H 06/24/17 03:15 POC Glucose 183 (58-89) H 06/24/17 12:27 Direct Bilirubin 0.6 mg/dL (0.0-0.5) H 06/24/17 03:15 Alkaline Phosphatase 193 Units/L (38-126) H 06/24/17 03:15 Creatine Kinase 200 Units/L (29-168) H 06/01/17 03:06 Troponin I 0.36 ng/mL (0-0.03) H* 05/29/17 15:53 Serum Total Protein 5.9 g/dL (6.0-8.3) L 06/24/17 03:15 Albumin 1.8 g/dL (3.5-5.0) L 06/24/17 03:15 Globulin 4.1 g/dL (2.4-3.5) H 06/24/17 03:15 Albumin/Globulin Ratio 0.4 (1.1-2.2) L 06/24/17 03:15 Lipase 112 Units/L (8-78) H 06/22/17 12:35 Urine Clarity Hazy (Clear) A 05/29/17 18:15 Ur Specific [place] 1.026 (1.010-1.025) H 05/29/17 18:15 Urine Protein 30 mg/dL (Neg-Trace) H 05/29/17 18:15 Urine Ketones Trace mg/dL (Negative) H 05/29/17 18:15 Urine Bilirubin Small (Negative) H 05/29/17 18:15 Urine Microscopic WBC 15-30 per hpf (0-3) H 05/29/17 18:15 Ur Squamous Epith Cells Many per lpf (None-Few) H 05/29/17 18:15 Amorphous Sediment Moderate (Few) H 05/29/17 18:15 Urine Bacteria Moderate per hpf (None-Few) H 05/29/17 18:15 Hyaline Casts Moderate per lpf (None-Few) H 05/29/17 18:15 Ur Culture Indicated? YES (NO) A 05/29/17 18:15 - Clinical Findings Intake & Output: Intake & Output 06/23/17 06/24/17 06/24/17 23:59 07:59 15:59 Intake Total 595 / 595 549 / 549 885 / 885 Output Total 100 / 100 150 / 150 250 / 250 Balance 495 / 495 399 / 399 635 / 635 Weight 132.3 kg - Attending Attestation I examined this patient and my medical decision-making was reviewed with the Resident Physician. I agree with the documented findings, disposition and treatment plan as described except to the extent set forth below. Patient seen and examined at bedside Labs, radiology, chart personally reviewed. All lines examined without evidence of infection. Management was reviewed during multidisciplinary critical care rounds. Neuropsych: Awake and alert she has periods of severe anxiety which we are starting an atypical antipsychotic along with continuation Precedex Pulm: Acute on chronic hypoxic hypercarbic respiratory failure with decompensated cor pulmonale now on vent except for oxygenation and ventilation today she is status post tracheostomy Cards: Decompensated right heart failure on vasopressor and milrinone we will continue to wean this as tolerated FEN-GI: Advance enteral nutrition underlying cholelithiasis with possible etiology of abdominal pain plan for HIDA scan once more stable I suspect this could be done next 24 hours Renal: Acute kidney injury secondary to renal hypoperfusion from decompensated right heart failure she has been making modest amount a year and about 25 mL/h we will trial a loop diuretic today continue to monitor electrolytes and replace per protocol ID: Not Currently receiving her requiring antibiotics continue to monitor Heme/Onc: DVT prophylaxis given Endo: Glucose monitored Integ/MSK: Skin care per routine ICU protocol to prevent ulcers CODE: Full
[2017-06-24] MEDS: Norepinephrine 4 MG in D5% in Water 250 ML IVC SCH ×2 (10:46→15:33)
[2017-06-24 11:09] LABS: Basophils % 0.2 %; Eosinophils # 0.1 K/mcL (0.0-0.6); Eosinophils % 0.7 %; Hematocrit 26.6 % (35.3-44.9); Immature Granulocytes % 3.9 % (0-4); Lymphocytes # 0.8 K/mcL (0.6-4.6); Lymphocytes % 4.3 %; Mean Corpuscular HGB Conc 30.1 g/dL (31.6-35.5); Mean Corpuscular Hemoglobin 28.3 pg (28.0-33.3); Mean Platelet Volume 10.9 fL (9.4-12.4); Monocytes # 0.8 K/mcL (0.0-1.3); Monocytes % 4.5 %; Neutrophils # 15.9 K/mcL (1.6-8.9); Platelet Count 312 K/mcL (140-400); Red Blood Count 2.83 M/mcL (3.82-4.97); Red Cell Distribution Width 17.1 % (11.5-14.5); Segmented Neutrophils % 86.4 %
[2017-06-24] MEDS ORDERED: 0.9 % Sodium Chloride 250 ML IVC PRN (12:14)
[2017-06-24] MEDS ORDERED: 0.9 % Sodium Chloride 1,000 ML PRIME SCH (12:15)
[2017-06-24] MEDS ORDERED: 0.9 % Sodium Chloride 1,000 ML ONE (14:40)
--- NOTE | 2017-06-24 14:48 | Electrocardiograph Report ---
[address] [place], [place] [address] Test Date: 2017-06-24 Pat Name: Glenis Corbett Department: 109 Room: [facility] Gender: F Ssis Etl Developer: : 1970 Requested By: Alexander Mark Order Number: [id number] Reading MD: Oscar Springer MD Measurements Intervals Amery Rate: 113 P: HI: 0 QRS: 0 QRSD: 1250 T: 0 QT: 0 QTc: 0 Interpretive Statements sinus tachycardia rbbb LOW QRS VOLTAGE Electronically Signed On 06-24-2017 14:47:01 EDT by Oscar Springer MD
[2017-06-25] MEDS: Insulin LISPRO 300 UNITS/3 ML VIAL SQ SCH ×6 (00:46→20:00)
[2017-06-25] MEDS: Lacri-Lube 3.5 GM TUBE BOTH EYES SCH ×6 (00:47→20:00)
[2017-06-25] MEDS: Dexmedetomidine HCl 400 MCG/100 ML MLS IVC SCH ×6 (03:30→23:30)
[2017-06-25 04:13] LABS: ABG Base Excess 6.1 mEq/L (-2.0 to 3.0); ABG HCO3 32.4 mEQ/L (21-27); ABG Oxygen Saturation 94 % (95-98); ABG PCO2 56 mmHg (35-45); ABG PH 7.37 pH Units (7.32-7.45); ABG PO2 71 mmHg (85-104); ABG TCO2 34.1 mEq/L (20-26); Blood Gas FiO2 60 %; Blood Gas Respiration Rate 18
[2017-06-25 04:14] LABS: Blood Gas PEEP 8 cm H2O; Blood Gas VT 450 cc
[2017-06-25 04:16] LABS: Basophils # 0.1 K/mcL (0.0-0.2); Basophils % 0.3 %; Eosinophils # 0.1 K/mcL (0.0-0.6); Eosinophils % 0.7 %; Hemoglobin 8.1 g/dL (11.5-15.4); Immature Granulocytes % 3.4 % (0-4); Lymphocytes # 1.1 K/mcL (0.6-4.6); Lymphocytes % 5.9 %; Mean Corpuscular Hemoglobin 27.9 pg (28.0-33.3); Mean Corpuscular Volume 93.1 fL (83.0-100.0); Mean Platelet Volume 10.9 fL (9.4-12.4); Monocytes % 5.3 %; Neutrophils # 15.4 K/mcL (1.6-8.9); Platelet Count 342 K/mcL (140-400); Red Cell Distribution Width 17.1 % (11.5-14.5); Segmented Neutrophils % 84.4 %
[2017-06-25] MEDS: Norepinephrine 4 MG in D5% in Water 250 ML IVC SCH ×3 (04:26→21:35)
[2017-06-25 04:39] LABS: Albumin/Globulin Ratio 0.4 (1.1-2.2); Alkaline Phosphatase 181 Units/L (38-126); Aspartate Amino Transferase 12 Units/L (5-34); BUN/Creatinine Ratio 23 (6-26); Bilirubin,Direct 0.6 mg/dL (0.0-0.5); Bilirubin,Indirect 0.3 mg/dL (0.0-1.2); Bilirubin,Total 0.9 mg/dL (0.2-1.2); Blood Urea Nitrogen 50 mg/dL (7-20); Calcium 8.7 mg/dL (8.6-10.8); Carbon Dioxide 30 mEq/L (19-29); Chloride 97 mEq/L (98-109); Globulin 4.1 g/dL (2.4-3.5); Glucose 166 mg/dL (70-99); Magnesium 1.8 mg/dL (1.6-2.6); Osmolality,Calculated 297 (280-300); Potassium 4.1 mEq/L (3.5-4.5); Sodium 135 mEq/L (136-145); Total Protein 5.9 g/dL (6.0-8.3); eGFR For African Americans 29 (> 60); eGFR For Non-African Americans 24 (> 60)
[2017-06-25 04:40] LABS: Alanine Aminotransferase < 6 Units/L (0-55); Albumin 1.8 g/dL (3.5-5.0)
[2017-06-25] MEDS: *HR* Heparin 5,000 UNIT/ML VIAL SQ SCH ×2 (05:11→16:47)
[2017-06-25] MEDS: Magnesium Sulfate 2 GM in D5% in Water 100 ML IVPB PRN (05:22)
[2017-06-25] MEDS: *HR* HYDROmorphone (PF) 1 MG/ML SYRINGE IVP PRN ×3 (06:09→21:43)
[2017-06-25] MEDS: FentaNYL (PF) 3,000 MCG in 0.9 % Sodium Chloride 240 ML IVC SCH ×2 (06:59→21:34)
[2017-06-25] MEDS: Pantoprazole 40 MG VIAL IVP SCH (07:22)
[2017-06-25] MEDS: Lactulose Oral Soln 20 GM/30 ML UDC PO PRN (07:22)
[2017-06-25] MEDS: Chlorhexidine Rinse 15 ML MOUTHWASH MM SCH ×2 (07:22→19:58)
[2017-06-25] MEDS: Docusate Oral Soln 100 MG/10 ML UDC PO SCH ×2 (07:22→19:58)
[2017-06-25] MEDS: Budesonide/Formoterol 160/4.5 MDI IH SCH ×2 (07:45→19:39)
[2017-06-25] MEDS: Nystatin OINT 15 GM TUBE TP SCH ×4 (08:00→20:00)
[2017-06-25] MEDS: MILRINONE 20 MG/100 ML IVC SCH ×2 (08:03→16:47)
[2017-06-25] MEDS: Nystatin POWDER 30 GM BOTTLE TP SCH ×2 (08:55→20:01)
--- NOTE | 2017-06-25 09:23 | Pulmonology Progress Note ---
<Nell Lagunas - Last Filed: 06/25/17 12:12> Date of Encounter: 06/25/17 Time of Encounter: 09:22 Assessment and Plan (1) Acute and chronic respiratory failure Current Visit: Yes Status: Acute Patient initially presented to the hospital status post fall. She subsequently was found to have an increased troponin and to be in rhabdomyolysis. She began having respiratory distress. She was placed on BiPAP. She was emergently intubated for acute on chronic respiratory failure. She does have a history of coronary hypertension as well as decompensated right heart failure. She was intubated and placed on the ventilator. She was sedated with Versed as well as fentanyl. She was also placed on vasopressors and milrinone. She was diuresed with lasix. Patient was extubated and sent to the floor. She subsequently decompensated and had to be reintubated. At this time it was decided that the patient should have a trach. Yesterday the trach was placed. She did have an episode where she coded. She has been on Levofed. We attempt to wean this and then added back due to her map decreasing. We will continue to attempt to wean. She is on fentanyl and Precedex for sedation. However she is alert and follows you throughout the room. She is able to communicate. She expresses that her belly does ache however this is no different than her chronic pain. She appears less anxious than yesterday. She is on Seroquel to help with the anxiety. Plan: Continue Levofed for a map of 60. Continue fentanyl and Precedex. Wean as tolerated. Heparin subcutaneous for DVT prophylaxis. Dobbhoff placement Began enteral feedings. Seroquel for agitation. Diuresis today. Qualifiers: Respiratory failure complication: hypoxia and hypercapnia Qualified Code(s) : J96.21 - Acute and chronic respiratory failure with hypoxia; J96.22 - Acute and chronic respiratory failure with hypercapnia (2) Chronic systolic (congestive) heart failure Current Visit: Yes Status: Chronic Plan as above (3) Cor pulmonale Current Visit: Yes Status: Chronic Plan as above (4) Moderate to severe pulmonary hypertension Current Visit: Yes Status: Chronic Plan as above (5) Morbid obesity with BMI of 50.0-59.9, adult Current Visit: Yes Status: Chronic Plan as above (6) SMITA treated with BiPAP Current Visit: Yes Status: Chronic Plan as above (7) Acute on chronic renal failure Current Visit: Yes Status: Acute Patient diuresing well. Creatinine has decreased. Plan: Continue to monitor urine output Continue to monitor creatinine Qualifiers: Acute renal failure type: unspecified Chronic kidney disease stage: stage 3 (moderate) Qualified Code(s): N17.9 - Acute kidney failure, unspecified; N18.3 - Chronic kidney disease, stage 3 (moderate) Subjective Principal diagnosis: Respiratory insufficiency Interval history: Patient stable overnight. Has had no events. She got anxious yesterday and dialysis was held. She is currently on Levophed. We will continue to attempt to wean the levofed. She is on Precedex and fentanyl for sedation. She had a trach placed. She also had a Dobbhoff placed. We are beginning enteral feedings. She is alert and following me throughout the room. She is able to communicate. She complains of lower abdominal pain on exam. She states this is her chronic pain. It is not out of proportion to normal for her. Lung sounds are clear. Patient on heparin for DVT prophylaxis. We will continue to diurese her today. Objective PUL Vital signs: Last Vital Signs Temp 98.6 F 06/25/17 07:00 Pulse 96 06/25/17 09:00 Resp 20 06/25/17 09:00 BP 88/58 06/25/17 09:00 Pulse Ox 92 06/25/17 09:00 General appearance: no acute distress, alert Eyes: nonicteric ENT: oropharynx moist Neck: supple Effort: normal Auscultation: bilateral: clear Cardiovascular: regular rate and rhythm Gastrointestinal: normoactive bowel sounds, soft, tender (Diffusely tender to palpation.), non-distended Integumentary: normal Extremities: no cyanosis, edema (Pitting to dependent areas of bilateral lower extremities to hip area.) Musculoskeletal: no deformities Gait: normal posture non-focal exam mood appropriate, affect normal Ventilator Settings Ventilator Settings: Ventilator Settings, Last 8 Hours Ventilator Mode VC+ Ventilator Mode VC+ Ventilator Mode VC+ Ventilator Mode VC+ Ventilator Mode VC+ Ventilator Mode VC+ Ventilator Mode VC+ Ventilator Mode VC+ Ventilator Mode VC+ Ventilator Tidal Volume 450 Setting Ventilator Tidal Volume 450 Setting Ventilator Tidal Volume 450 Setting Ventilator Tidal Volume 450 Setting Ventilator Tidal Volume 450 Setting Ventilator Tidal Volume 450 Setting Ventilator Tidal Volume 450 Setting Ventilator Tidal Volume 450 Setting Ventilator Tidal Volume 450 Setting Ventilator Respiratory Rate 18 Setting Ventilator Respiratory Rate 18 Setting Ventilator Respiratory Rate 18 Setting Ventilator Respiratory Rate 18 Setting Ventilator Respiratory Rate 18 Setting Ventilator Respiratory Rate 18 Setting Ventilator Respiratory Rate 18 Setting Ventilator Respiratory Rate 18 Setting Ventilator Respiratory Rate 18 Setting Actual Respiratory Rate 18 Actual Respiratory Rate 18 Actual Respiratory Rate 19 Actual Respiratory Rate 18 Actual Respiratory Rate 18 Actual Respiratory Rate 18 Actual Respiratory Rate 18 Actual Respiratory Rate 18 Positive End Expiratory 8 Pressure Positive End Expiratory 8 Pressure Positive End Expiratory 8 Pressure Positive End Expiratory 8 Pressure Positive End Expiratory 8 Pressure Positive End Expiratory 8 Pressure Positive End Expiratory 8 Pressure Positive End Expiratory 8 Pressure Positive End Expiratory 8 Pressure Peak Inspiratory Airway 47 Pressure Peak Inspiratory Airway 44 Pressure Peak Inspiratory Airway 40 Pressure Peak Inspiratory Airway 42 Pressure Peak Inspiratory Airway 39 Pressure Peak Inspiratory Airway 34 Pressure Peak Inspiratory Airway 35 Pressure Peak Inspiratory Airway 35 Pressure Results - Laboratory Findings CBC and BMP: 06/25/17 04:04 06/25/17 04:04 ABG ABG pH 7.37 pH Units (7.32-7.45) 06/25/17 03:54 ABG pCO2 56 mmHg (35-45) H 06/25/17 03:54 ABG pO2 71 mmHg (85-104) L 06/25/17 03:54 ABG O2 Saturation 94 % (95-98) L 06/25/17 03:54 PT/INR, D-dimer PT 14.6 Seconds (9.4-12.1) H 06/22/17 03:30 Abnormal lab findings: Abnormal lab results WBC 18.2 K/mcL (4.3-11.1) H 06/25/17 04:04 RBC 2.90 M/mcL (3.82-4.97) L 06/25/17 04:04 Hgb 8.1 g/dL (11.5-15.4) L 06/25/17 04:04 Hct 27.0 % (35.3-44.9) L 06/25/17 04:04 MCH 27.9 pg (28.0-33.3) L 06/25/17 04:04 MCHC 30.0 g/dL (31.6-35.5) L 06/25/17 04:04 RDW 17.1 % (11.5-14.5) H 06/25/17 04:04 Neutrophils # 15.4 K/mcL (1.6-8.9) H 06/25/17 04:04 Nucleated RBCs/100 WBC 0.3 /100 WBC (0) H 06/03/17 04:00 Reactive Lymphocytes Present (Not Present) A 06/01/17 03:30 Large Platelets Present (Not Present) A 06/17/17 03:00 Immature Plt Fraction 10.6 % (1.1-6.1) H 06/06/17 04:40 Polychromasia 1+ (Not Present) A 06/01/17 03:30 Hypochromasia Present (Not Present) A 06/17/17 03:00 Basophilic Stippling 1+ (Not Present) A 06/01/17 03:30 Anisocytosis 1+ (Not Present) A 06/23/17 07:57 Microcytosis Present (Not Present) A 06/17/17 03:00 Macrocytosis Present (Not Present) A 06/17/17 03:00 PT 14.6 Seconds (9.4-12.1) H 06/22/17 03:30 ABG pCO2 56 mmHg (35-45) H 06/25/17 03:54 ABG pO2 71 mmHg (85-104) L 06/25/17 03:54 ABG HCO3 32.4 mEQ/L (21-27) H 06/25/17 03:54 ABG Total CO2 34.1 mEq/L (20-26) H 06/25/17 03:54 ABG O2 Saturation 94 % (95-98) L 06/25/17 03:54 ABG Base Excess 6.1 mEq/L (-2.0 to 3.0) H 06/25/17 03:54 VBG pH 7.50 pH Units (7.32-7.42) H 05/31/17 21:46 VBG pO2 202 mmHg (25-40) H 05/31/17 21:46 VBG HCO3 36.7 mEq/L (21-27) H 05/31/17 21:46 Mixed VBG pH 7.29 (7.34-7.36) L 05/31/17 21:46 Mixed VBG pCO2 89 mmHg (44-46) H 05/31/17 21:46 Mixed VBG pO2 73 mmHg (35-45) H 05/31/17 21:46 Mixed VBG Oxyhemoglobin 93.0 % (60-80) H 05/31/17 21:46 Sodium 135 mEq/L (136-145) L 06/25/17 04:04 Chloride 97 mEq/L (98-109) L 06/25/17 04:04 Carbon Dioxide 30 mEq/L (19-29) H 06/25/17 04:04 BUN 50 mg/dL (7-20) H 06/25/17 04:04 Creatinine 2.22 mg/dL (0.57-1.11) H 06/25/17 04:04 Est GFR ( Amer) 29 (> 60) L 06/25/17 04:04 Est GFR (Non-Af Amer) 24 (> 60) L 06/25/17 04:04 Glucose 166 mg/dL (70-99) H 06/25/17 04:04 POC Glucose 154 (58-89) H 06/25/17 07:11 Direct Bilirubin 0.6 mg/dL (0.0-0.5) H 06/25/17 04:04 Alkaline Phosphatase 181 Units/L (38-126) H 06/25/17 04:04 Creatine Kinase 200 Units/L (29-168) H 06/01/17 03:06 Troponin I 0.36 ng/mL (0-0.03) H* 05/29/17 15:53 Serum Total Protein 5.9 g/dL (6.0-8.3) L 06/25/17 04:04 Albumin 1.8 g/dL (3.5-5.0) L 06/25/17 04:04 Globulin 4.1 g/dL (2.4-3.5) H 06/25/17 04:04 Albumin/Globulin Ratio 0.4 (1.1-2.2) L 06/25/17 04:04 Lipase 112 Units/L (8-78) H 06/22/17 12:35 Urine Clarity Hazy (Clear) A 05/29/17 18:15 Ur Specific [place] 1.026 (1.010-1.025) H 05/29/17 18:15 Urine Protein 30 mg/dL (Neg-Trace) H 05/29/17 18:15 Urine Ketones Trace mg/dL (Negative) H 05/29/17 18:15 Urine Bilirubin Small (Negative) H 05/29/17 18:15 Urine Microscopic WBC 15-30 per hpf (0-3) H 05/29/17 18:15 Ur Squamous Epith Cells Many per lpf (None-Few) H 05/29/17 18:15 Amorphous Sediment Moderate (Few) H 05/29/17 18:15 Urine Bacteria Moderate per hpf (None-Few) H 05/29/17 18:15 Hyaline Casts Moderate per lpf (None-Few) H 05/29/17 18:15 Ur Culture Indicated? YES (NO) A 05/29/17 18:15 - Clinical Findings Intake & Output: Intake & Output 06/24/17 06/25/17 06/25/17 23:59 07:59 15:59 Intake Total 738 / 738 1137 / 1137 158 / 158 Output Total 200 / 200 400 / 400 150 / 150 Balance 538 / 538 737 / 737 8 / 8 Weight 134 kg - VTE Documentation of Mechanical Device: Intermittent pneumatic compression device Consult Discharge Plan - Plan Referrals: Mi Warren, SUPERVISORY AIDE [Advanced Practice Nurse] - (computers are down call back later ) <Ronald Stevens - Last Filed: 06/25/17 13:53> Date of Encounter: 06/25/17 Assessment and Plan (1) Acute and chronic respiratory failure Current Visit: Yes Status: Acute Qualifiers: Respiratory failure complication: hypoxia and hypercapnia Qualified Code(s) : J96.21 - Acute and chronic respiratory failure with hypoxia; J96.22 - Acute and chronic respiratory failure with hypercapnia (2) Acute on chronic renal failure Current Visit: Yes Status: Acute Qualifiers: Acute renal failure type: unspecified Chronic kidney disease stage: stage 3 (moderate) Qualified Code(s): N17.9 - Acute kidney failure, unspecified; N18.3 - Chronic kidney disease, stage 3 (moderate) (3) Moderate to severe pulmonary hypertension Current Visit: Yes Status: Chronic (4) Morbid obesity with BMI of 50.0-59.9, adult Current Visit: Yes Status: Chronic (5) Candidal intertrigo Current Visit: No Status: Acute (6) SMITA treated with BiPAP Current Visit: Yes Status: Chronic (7) Cor pulmonale Current Visit: Yes Status: Acute (8) Chronic systolic (congestive) heart failure Current Visit: Yes Status: Chronic Objective PUL Vital signs: Last Vital Signs Temp 99.1 F 06/25/17 11:49 Pulse 90 06/25/17 13:00 Resp 18 06/25/17 13:00 BP 90/56 06/25/17 13:00 Pulse Ox 95 06/25/17 13:00 Ventilator Settings Ventilator Settings: Ventilator Settings, Last 8 Hours Ventilator Mode VC+ Ventilator Mode VC+ Ventilator Mode VC+ Ventilator Mode VC+ Ventilator Mode VC+ Ventilator Mode VC+ Ventilator Mode VC+ Ventilator Mode VC+ Ventilator Mode VC+ Ventilator Tidal Volume 450 Setting Ventilator Tidal Volume 450 Setting Ventilator Tidal Volume 450 Setting Ventilator Tidal Volume 450 Setting Ventilator Tidal Volume 450 Setting Ventilator Tidal Volume 450 Setting Ventilator Tidal Volume 450 Setting Ventilator Tidal Volume 450 Setting Ventilator Tidal Volume 450 Setting Ventilator Respiratory Rate 18 Setting Ventilator Respiratory Rate 18 Setting Ventilator Respiratory Rate 18 Setting Ventilator Respiratory Rate 18 Setting Ventilator Respiratory Rate 18 Setting Ventilator Respiratory Rate 18 Setting Ventilator Respiratory Rate 18 Setting Ventilator Respiratory Rate 18 Setting Ventilator Respiratory Rate 18 Setting Actual Respiratory Rate 18 Actual Respiratory Rate 18 Actual Respiratory Rate 18 Actual Respiratory Rate 18 Actual Respiratory Rate 18 Actual Respiratory Rate 18 Actual Respiratory Rate 18 Actual Respiratory Rate 19 Actual Respiratory Rate 18 Positive End Expiratory 8 Pressure Positive End Expiratory 8 Pressure Positive End Expiratory 8 Pressure Positive End Expiratory 8 Pressure Positive End Expiratory 8 Pressure Positive End Expiratory 8 Pressure Positive End Expiratory 8 Pressure Positive End Expiratory 8 Pressure Positive End Expiratory 8 Pressure Peak Inspiratory Airway 39 Pressure Peak Inspiratory Airway 38 Pressure Peak Inspiratory Airway 37 Pressure Peak Inspiratory Airway 36 Pressure Peak Inspiratory Airway 47 Pressure Peak Inspiratory Airway 44 Pressure Peak Inspiratory Airway 45 Pressure Peak Inspiratory Airway 40 Pressure Peak Inspiratory Airway 42 Pressure Results - Laboratory Findings CBC and BMP: 06/25/17 04:04 06/25/17 04:04 ABG ABG pH 7.37 pH Units (7.32-7.45) 06/25/17 03:54 ABG pCO2 56 mmHg (35-45) H 06/25/17 03:54 ABG pO2 71 mmHg (85-104) L 06/25/17 03:54 ABG O2 Saturation 94 % (95-98) L 06/25/17 03:54 PT/INR, D-dimer PT 14.6 Seconds (9.4-12.1) H 06/22/17 03:30 Abnormal lab findings: Abnormal lab results WBC 18.2 K/mcL (4.3-11.1) H 06/25/17 04:04 RBC 2.90 M/mcL (3.82-4.97) L 06/25/17 04:04 Hgb 8.1 g/dL (11.5-15.4) L 06/25/17 04:04 Hct 27.0 % (35.3-44.9) L 06/25/17 04:04 MCH 27.9 pg (28.0-33.3) L 06/25/17 04:04 MCHC 30.0 g/dL (31.6-35.5) L 06/25/17 04:04 RDW 17.1 % (11.5-14.5) H 06/25/17 04:04 Neutrophils # 15.4 K/mcL (1.6-8.9) H 06/25/17 04:04 Nucleated RBCs/100 WBC 0.3 /100 WBC (0) H 06/03/17 04:00 Reactive Lymphocytes Present (Not Present) A 06/01/17 03:30 Large Platelets Present (Not Present) A 06/17/17 03:00 Immature Plt Fraction 10.6 % (1.1-6.1) H 06/06/17 04:40 Polychromasia 1+ (Not Present) A 06/01/17 03:30 Hypochromasia Present (Not Present) A 06/17/17 03:00 Basophilic Stippling 1+ (Not Present) A 06/01/17 03:30 Anisocytosis 1+ (Not Present) A 06/23/17 07:57 Microcytosis Present (Not Present) A 06/17/17 03:00 Macrocytosis Present (Not Present) A 06/17/17 03:00 PT 14.6 Seconds (9.4-12.1) H 06/22/17 03:30 ABG pCO2 56 mmHg (35-45) H 06/25/17 03:54 ABG pO2 71 mmHg (85-104) L 06/25/17 03:54 ABG HCO3 32.4 mEQ/L (21-27) H 06/25/17 03:54 ABG Total CO2 34.1 mEq/L (20-26) H 06/25/17 03:54 ABG O2 Saturation 94 % (95-98) L 06/25/17 03:54 ABG Base Excess 6.1 mEq/L (-2.0 to 3.0) H 06/25/17 03:54 VBG pH 7.50 pH Units (7.32-7.42) H 05/31/17 21:46 VBG pO2 202 mmHg (25-40) H 05/31/17 21:46 VBG HCO3 36.7 mEq/L (21-27) H 05/31/17 21:46 Mixed VBG pH 7.29 (7.34-7.36) L 05/31/17 21:46 Mixed VBG pCO2 89 mmHg (44-46) H 05/31/17 21:46 Mixed VBG pO2 73 mmHg (35-45) H 05/31/17 21:46 Mixed VBG Oxyhemoglobin 93.0 % (60-80) H 05/31/17 21:46 Sodium 135 mEq/L (136-145) L 06/25/17 04:04 Chloride 97 mEq/L (98-109) L 06/25/17 04:04 Carbon Dioxide 30 mEq/L (19-29) H 06/25/17 04:04 BUN 50 mg/dL (7-20) H 06/25/17 04:04 Creatinine 2.22 mg/dL (0.57-1.11) H 06/25/17 04:04 Est GFR ( Amer) 29 (> 60) L 06/25/17 04:04 Est GFR (Non-Af Amer) 24 (> 60) L 06/25/17 04:04 Glucose 166 mg/dL (70-99) H 06/25/17 04:04 POC Glucose 157 (58-89) H 06/25/17 11:27 Direct Bilirubin 0.6 mg/dL (0.0-0.5) H 06/25/17 04:04 Alkaline Phosphatase 181 Units/L (38-126) H 06/25/17 04:04 Creatine Kinase 200 Units/L (29-168) H 06/01/17 03:06 Troponin I 0.36 ng/mL (0-0.03) H* 05/29/17 15:53 Serum Total Protein 5.9 g/dL (6.0-8.3) L 06/25/17 04:04 Albumin 1.8 g/dL (3.5-5.0) L 06/25/17 04:04 Globulin 4.1 g/dL (2.4-3.5) H 06/25/17 04:04 Albumin/Globulin Ratio 0.4 (1.1-2.2) L 06/25/17 04:04 Lipase 112 Units/L (8-78) H 06/22/17 12:35 Urine Clarity Hazy (Clear) A 05/29/17 18:15 Ur Specific [place] 1.026 (1.010-1.025) H 05/29/17 18:15 Urine Protein 30 mg/dL (Neg-Trace) H 05/29/17 18:15 Urine Ketones Trace mg/dL (Negative) H 05/29/17 18:15 Urine Bilirubin Small (Negative) H 05/29/17 18:15 Urine Microscopic WBC 15-30 per hpf (0-3) H 05/29/17 18:15 Ur Squamous Epith Cells Many per lpf (None-Few) H 05/29/17 18:15 Amorphous Sediment Moderate (Few) H 05/29/17 18:15 Urine Bacteria Moderate per hpf (None-Few) H 05/29/17 18:15 Hyaline Casts Moderate per lpf (None-Few) H 05/29/17 18:15 Ur Culture Indicated? YES (NO) A 05/29/17 18:15 - Clinical Findings Intake & Output: Intake & Output 06/24/17 06/25/17 06/25/17 23:59 07:59 15:59 Intake Total 738 / 738 1137 / 1137 258 / 258 Output Total 200 / 200 400 / 400 525 / 525 Balance 538 / 538 737 / 737 -267 / -267 Weight 134 kg - Attending Attestation I examined this patient and my medical decision-making was reviewed with the Resident Physician. I agree with the documented findings, disposition and treatment plan as described except to the extent set forth below. Patient seen and examined at bedside Labs, radiology, chart personally reviewed. All lines examined without evidence of infection. Management was reviewed during multidisciplinary critical care rounds. Neuropsych: She is awake and alert today she has been intermittently despondent with periods of significant anxiety we have started an atypical antipsychotic to help with this she is also on Precedex. To help with this result we have also encouraged her family to come visit Pulm: Acute on chronic hypoxic hypercarbic respiratory failure with severe pulmonary hypertension minimal vent support with acceptable oxygenation and ventilation she is status post tracheostomy placement otolaryngology following. Cards: Acutely decompensated right heart failure she is receiving vasopressor support and inotropic support which we are attempting to wean FEN-GI: Continue enteral nutrition she has chronic abdominal pain which may be related to cholelithiasis unfortunately she is too unstable for interventional or surgical procedure general surgery has evaluated the patient. Renal: Acute kidney injury secondary to hypoperfusion from decompensated right heart failure. Increasing loop diuretic today she has been receiving intermittent rounds of renal replacement therapy although no indication today labs are relatively stable we will continue to replace her electrolytes per protocol ID: Persistent leukocytosis of unclear source this may repeat related to hepatobiliary colic the acute administration of antimicrobials for this is equivocal best favor continue watching at this time Heme/Onc: DVT prophylaxis given Endo: Glucose monitored Integ/MSK: Skin care per routine CODE: Full code
[2017-06-25] MEDS ORDERED: Furosemide 40 MG/4 ML VIAL IVP ONE ×2 (09:25→16:39)
[2017-06-25] MEDS ORDERED: metOLazone 5 MG TABLET PO ONE (09:25)
--- NOTE | 2017-06-25 11:18 | Nephrology Progress Note ---
Date of Encounter: 06/25/17 Time of Encounter: 08:40 - Assessment and Plan (1) BLANCA (acute kidney injury) Current Visit: Yes Status: Acute Nonoliguric BLANCA that appeared responsive to Lasix 80mg IV yesterday (the I/Os may not accurately reflect since the STORAGE CENTER MANAGER reported about 1 to 1.5L of UOP yesterday). I recommend another dose of Lasix 80mg IV this AM and likely this afternoon but titrate based upon UOP response. Discussed with the ICU residents. Will assess daily for any dialytic needs but she does not appear to need HD today. Please keep the HD catheter in place for now. Meanwhile continue to follow a renal protective / supportive strategy. Strict I/ Os, daily weights. Avoid other nephrotoxin exposures. Thank you. Will round on her this weekend. (2) Acute and chronic respiratory failure Current Visit: Yes Status: Acute As per primary. S/p trach. Qualifiers: Respiratory failure complication: hypoxia and hypercapnia Qualified Code(s) : J96.21 - Acute and chronic respiratory failure with hypoxia; J96.22 - Acute and chronic respiratory failure with hypercapnia (3) Cor pulmonale Current Visit: Yes Status: Chronic Diuretics to focus on improving her volume status. (4) Edema Current Visit: Yes Status: Chronic Resume lasix today, see above. 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 Subjective Principal diagnosis: Respiratory insufficiency Interval history: Pt was seen/examined while in the ICU. I reviewed progress notes, labs, vitals, I/Os, spoke with the ICU team and looked for any recent nephrology progress notes. She last attempted to have HD yesterday, but it was stopped as per the superintendent schools d/t tachycardia and hypotension. She did make roughly 1 to 1.5L of UOP after receiving lasix yesterday as per the STORAGE CENTER MANAGER. The pt did not affirm any new major complaints using head motioning given that she has a trach. Objective - Vital Signs Vital signs: Vital Signs Temp Pulse Resp BP Pulse Ox 06/25/17 10:00 91 18 99/57 93 06/25/17 09:00 96 20 88/58 92 06/25/17 08:00 88 18 87/54 97 06/25/17 07:45 18 84/50 99 06/25/17 07:00 98.6 F 84 19 80/53 93 06/25/17 06:01 18 88/54 95 06/25/17 06:00 91 18 88/54 94 06/25/17 05:00 87 18 100/59 95 06/25/17 04:49 18 100/57 95 06/25/17 04:00 98.5 F 92 18 99/59 95 06/25/17 03:00 86 18 109/64 96 06/25/17 02:15 18 98/58 95 06/25/17 02:00 90 18 99/59 95 06/25/17 01:00 89 18 100/59 98 06/25/17 00:30 20 99/63 96 06/25/17 00:00 98.2 F 90 18 99/58 96 06/24/17 23:00 91 17 96/61 95 06/24/17 22:32 19 90/53 95 06/24/17 22:00 99 20 91/54 90 06/24/17 21:00 100 16 79/51 94 06/24/17 20:00 99.9 F H 103 20 91/66 96 06/24/17 19:53 18 93/54 94 06/24/17 19:00 92 17 81/47 96 06/24/17 18:00 93 18 98/60 96 06/24/17 17:42 18 118/71 98 06/24/17 17:00 102 18 118/71 96 06/24/17 16:00 96 18 104/68 96 06/24/17 15:50 18 101/66 97 06/24/17 15:00 106 18 98/55 95 06/24/17 14:00 95 18 93/48 96 06/24/17 13:25 18 97/51 96 06/24/17 13:00 97 18 97/51 96 06/24/17 12:42 98.9 F 06/24/17 12:00 94 18 95/53 96 Intake and Output 06/24/17 06/25/17 06/25/17 23:59 07:59 15:59 Intake Total 738 / 738 1137 / 1137 158 / 158 Output Total 200 / 200 400 / 400 225 / 225 Balance 538 / 538 737 / 737 -67 / -67 Intake: IV Fluids 590 / 590 1022 / 1022 PRECEDEX 400 mcg In 100 200 / 200 200 / 200 ml @ 0.3 MCG/KG/HR 10.358 mls/hr IVC .Q9H40M [place] Rx#:[id number] FentaNYL (PF) 3,000 MCG 240 / 240 300 / 300 In 0.9 % Sodium Chloride 240 ML @ 100 MCG/HR 10 mls/hr IVC CONT [facility] Rx#: [id number] Versed 50 MG In 0.9 % 0 / 0 14 / 14 Sodium Chloride 90 ML @ 2 MG/HR 4 mls/hr IVC CONT [facility] Rx#:[id number] Primacor Premix 20 MG/100 100 / 100 100 / 100 ML 20 mg In 100 ml @ 0. 25 MCG/KG/MIN 10.253 mls/ hr IVC CONT [facility] Rx#: [id number] Levophed 4 MG In Dextrose 50 / 50 200 / 200 5% 250 ML @ 5 MCG/MIN 18 .75 mls/hr IVC CONT [facility] Rx#:[id number] Magnesium Sulfate 2 GM In 208 / 208 Dextrose 5% 100 ML @ 50 mls/hr IVPB Q6H PRN Rx#: [id number] Tube Feeding 148 / 148 115 / 115 58 / 58 Free Water 100 / 100 Output: Urine 200 / 200 Catheter 400 / 400 225 / 225 Other: Stool Size Moderate Stool Consistency liquid Stool Color Brown # Bowel Movements 1 Weight 134 kg Blood Glucose* 158 154 Patient Weight 06/25/17 23:59 Weight 134 kg - General Appearance General appearance: Present: obese, chronically ill, anxious EENT: Present: mucous membranes moist Additional Comments: Trach and RIJ CVC Neck: Present: supple Additional Comments: Trach Respiratory: Present: clear Cardiology: Present: edema, normal S1, normal S2 Dialysis Vascular Access: Venous Catheter (temporary HD catheter was C/D/I) Gastrointestinal: Present: normoactive bowel sounds, no tenderness, no guarding , obese Integumentary: Present: warm and dry Neurologic: Present: no asterixis Musculoskeletal: Present: no erythema, no cyanosis, no clubbing Psychiatric: Present: cooperative - Lab 06/25/17 04:04 06/25/17 04:04 Most recent lab results ABG pH 7.37 pH Units (7.32-7.45) 06/25/17 03:54 ABG pCO2 56 mmHg (35-45) H 06/25/17 03:54 ABG pO2 71 mmHg (85-104) L 06/25/17 03:54 ABG HCO3 32.4 mEQ/L (21-27) H 06/25/17 03:54 ABG O2 Saturation 94 % (95-98) L 06/25/17 03:54 Calcium 8.7 mg/dL (8.6-10.8) 06/25/17 04:04 Phosphorus 4.0 mg/dL (2.3-4.7) 06/21/17 03:45 Magnesium 1.8 mg/dL (1.6-2.6) 06/25/17 04:04 Urine Creatinine 88 mg/dL 06/17/17 07:15 Urine Sodium 27.0 mEq/L 06/17/17 07:15 - VTE Documentation of Mechanical Device: Intermittent pneumatic compression device Consult Discharge Plan - Plan Referrals: Mi Warren, LACING STRING CUTTER [Advanced Practice Nurse] - (computers are down call back later )
--- NOTE | 2017-06-25 12:04 | ENT - Progress Note ---
Date of Encounter: 06/25/17 Time of Encounter: 12:01 - Assessment and Plan (1) Chronic respiratory failure Current Visit: Yes Status: Chronic The patient appears stable s/p Tracheotomy Wednesday this week. I understand that #5 trach tubes are not available. I have requested a #4 and a #6 be available at the bedside. I will check again Wednesday and either change the tube or sign it out to Dr. Thomas for next week. Please call me if there are any issues over the weekend. Qualifiers: Respiratory failure complication: hypoxia and hypercapnia Qualified Code(s) : J96.11 - Chronic respiratory failure with hypoxia; J96.12 - Chronic respiratory failure with hypercapnia Subjective Patient reports: no new complaints (POD 3 s/p tracheotomy, per nursing staff patient is stable) Objective Initial Vital Signs Resp BP Pulse Ox 24 85/62 94 05/29/17 06:40 05/29/17 06:40 05/29/17 06:40 - Neck trachea midline (trach site dry and intact) - Labs 06/25/17 04:04 06/25/17 04:04 Diabetes panel 06/25/17 Range/Units 04:04 Sodium 135 L (136-145) mEq/L Potassium 4.1 (3.5-4.5) mEq/L Chloride 97 L (98-109) mEq/L Carbon Dioxide 30 H (19-29) mEq/L BUN 50 H (7-20) mg/dL Creatinine 2.22 H (0.57-1.11) mg/dL Glucose 166 H (70-99) mg/dL Calcium 8.7 (8.6-10.8) mg/dL AST 12 (5-34) Units/L ALT < 6 (0-55) Units/L Alkaline Phosphatase 181 H (38-126) Units/L Albumin 1.8 L (3.5-5.0) g/dL Calcium panel 06/25/17 Range/Units 04:04 Calcium 8.7 (8.6-10.8) mg/dL Albumin 1.8 L (3.5-5.0) g/dL Pituitary panel 06/25/17 Range/Units 04:04 Sodium 135 L (136-145) mEq/L Potassium 4.1 (3.5-4.5) mEq/L Chloride 97 L (98-109) mEq/L Carbon Dioxide 30 H (19-29) mEq/L BUN 50 H (7-20) mg/dL Creatinine 2.22 H (0.57-1.11) mg/dL Glucose 166 H (70-99) mg/dL Calcium 8.7 (8.6-10.8) mg/dL Adrenal panel 06/25/17 Range/Units 04:04 Sodium 135 L (136-145) mEq/L Potassium 4.1 (3.5-4.5) mEq/L Chloride 97 L (98-109) mEq/L Carbon Dioxide 30 H (19-29) mEq/L BUN 50 H (7-20) mg/dL Creatinine 2.22 H (0.57-1.11) mg/dL Glucose 166 H (70-99) mg/dL Calcium 8.7 (8.6-10.8) mg/dL Total Bilirubin 0.9 (0.2-1.2) mg/dL AST 12 (5-34) Units/L ALT < 6 (0-55) Units/L Alkaline Phosphatase 181 H (38-126) Units/L Albumin 1.8 L (3.5-5.0) g/dL - VTE Documentation of Mechanical Device: Intermittent pneumatic compression device Consult Discharge Plan - Plan Referrals: Mi Warren, BROADCAST TECHNICIAN [Advanced Practice Nurse] - (computers are down call back later )
[2017-06-25] MEDS: *HR* LORazepam 2 MG/ML VIAL IVP PRN (14:14)
[2017-06-25 16:09] LABS: Calcium 8.7 mg/dL (8.6-10.8); Potassium 4.2 mEq/L (3.5-4.5)
[2017-06-26] MEDS: *HR* HYDROmorphone (PF) 1 MG/ML SYRINGE IVP PRN ×5 (00:02→22:34)
[2017-06-26] MEDS: Lacri-Lube 3.5 GM TUBE BOTH EYES SCH ×7 (00:04→23:30)
[2017-06-26] MEDS: Insulin LISPRO 300 UNITS/3 ML VIAL SQ SCH ×7 (00:04→23:30)
[2017-06-26] MEDS: MILRINONE 20 MG/100 ML IVC SCH ×4 (02:33→21:25)
[2017-06-26] MEDS: *HR* LORazepam 2 MG/ML VIAL IVP PRN (02:45)
[2017-06-26] MEDS: Dexmedetomidine HCl 400 MCG/100 ML MLS IVC SCH ×5 (03:02→20:00)
[2017-06-26] MEDS: FentaNYL (PF) 3,000 MCG in 0.9 % Sodium Chloride 240 ML IVC SCH ×2 (04:36→11:16)
[2017-06-26] MEDS: *HR* Heparin 5,000 UNIT/ML VIAL SQ SCH ×2 (05:04→16:24)
[2017-06-26 05:05] LABS: Basophils # 0.1 K/mcL (0.0-0.2); Basophils % 0.3 %; Eosinophils # 0.1 K/mcL (0.0-0.6); Eosinophils % 0.6 %; Hemoglobin 8.5 g/dL (11.5-15.4); Immature Granulocytes % 2.7 % (0-4); Lymphocytes # 0.9 K/mcL (0.6-4.6); Lymphocytes % 4.6 %; Mean Corpuscular HGB Conc 29.3 g/dL (31.6-35.5); Mean Corpuscular Hemoglobin 27.3 pg (28.0-33.3); Mean Corpuscular Volume 93.2 fL (83.0-100.0); Monocytes # 0.7 K/mcL (0.0-1.3); Monocytes % 3.9 %; Neutrophils # 16.4 K/mcL (1.6-8.9); Platelet Count 376 K/mcL (140-400); Red Blood Count 3.11 M/mcL (3.82-4.97); Red Cell Distribution Width 17.2 % (11.5-14.5); Segmented Neutrophils % 87.9 %
[2017-06-26 05:25] LABS: Albumin/Globulin Ratio 0.4 (1.1-2.2); Alkaline Phosphatase 169 Units/L (38-126); Aspartate Amino Transferase 10 Units/L (5-34); BUN/Creatinine Ratio 24 (6-26); Bilirubin,Direct 0.6 mg/dL (0.0-0.5); Bilirubin,Indirect 0.4 mg/dL (0.0-1.2); Blood Urea Nitrogen 53 mg/dL (7-20); Calcium 8.7 mg/dL (8.6-10.8); Carbon Dioxide 31 mEq/L (19-29); Chloride 96 mEq/L (98-109); Globulin 4.2 g/dL (2.4-3.5); Glucose 192 mg/dL (70-99); Magnesium 1.8 mg/dL (1.6-2.6); Osmolality,Calculated 296 (280-300); Phosphorous 4.3 mg/dL (2.3-4.7); Sodium 133 mEq/L (136-145); Total Protein 5.9 g/dL (6.0-8.3); eGFR For African Americans 29 (> 60); eGFR For Non-African Americans 24 (> 60)
[2017-06-26 05:26] LABS: Alanine Aminotransferase < 6 Units/L (0-55); Albumin 1.7 g/dL (3.5-5.0)
[2017-06-26 05:57] LABS: ABG Base Excess 6.7 mEq/L (-2.0 to 3.0); ABG HCO3 33.7 mEQ/L (21-27); ABG Oxygen Saturation 95 % (95-98); ABG PCO2 61 mmHg (35-45); ABG PH 7.35 pH Units (7.32-7.45); ABG PO2 78 mmHg (85-104); ABG TCO2 35.6 mEq/L (20-26)
[2017-06-26 05:59] LABS: Blood Gas FiO2 60 %
--- NOTE | 2017-06-26 06:36 | Event Note ---
Date of Encounter: 06/26/17 Time of Encounter: 02:00 I was called to evaluate the patient for abdominal pain and distention. Patient is in no acute distress. She can mouth words but cannot talk due to tracheostomy. Heart exam is regular S1-S2. Abdomen is soft, distended mostly in the epigastric area, tympanic to percussion and mildly tender but no rebound or guarding. Plan: Severe constipation: Patient has not had a documented bowel movement in several days. She takes multiple doses of opiates for pain and therefore is at risk for constipation. She had been given lactulose and stool softener with no improvement. I will order an enema and Dulcolax suppository. We will obtain a CT of the abdomen and pelvis with oral contrast in the morning.
[2017-06-26] MEDS ORDERED: Bisacodyl 10 MG RECTAL SUPPOSITORY RC PRN (06:55)
[2017-06-26] MEDS: Budesonide/Formoterol 160/4.5 MDI IH SCH ×2 (07:36→19:49)
[2017-06-26] MEDS: Docusate Oral Soln 100 MG/10 ML UDC PO SCH ×2 (08:44→22:34)
[2017-06-26] MEDS: Chlorhexidine Rinse 15 ML MOUTHWASH MM SCH ×2 (08:44→22:39)
[2017-06-26] MEDS: Nystatin OINT 15 GM TUBE TP SCH ×4 (08:45→20:59)
[2017-06-26] MEDS: Nystatin POWDER 30 GM BOTTLE TP SCH ×2 (08:46→20:59)
[2017-06-26] MEDS: Pantoprazole 40 MG VIAL IVP SCH (10:06)
--- NOTE | 2017-06-26 10:16 | Nephrology Progress Note ---
Date of Encounter: 06/26/17 Time of Encounter: 09:30 - Assessment and Plan (1) BLANCA (acute kidney injury) Current Visit: Yes Status: Acute Nonoliguric BLANCA that appears stable and responsive to diuretics. I recommend continue diuretics to help manage her volume status. No need for SECURITY OFFICER SUPERVISOR today ([place]). Please keep the HD catheter another few days while monitoring her renal function with diuretics back on board. Meanwhile continue to follow a renal protective / supportive strategy. Avoid IV contrast, if able. Strict I/Os, daily weights. Avoid other nephrotoxin exposures. Thank you. Will round on her this weekend. (2) Acute and chronic respiratory failure Current Visit: Yes Status: Acute As per primary. S/p trach. Qualifiers: Respiratory failure complication: hypoxia and hypercapnia Qualified Code(s) : J96.21 - Acute and chronic respiratory failure with hypoxia; J96.22 - Acute and chronic respiratory failure with hypercapnia (3) Cor pulmonale Current Visit: Yes Status: Chronic Diuretics to focus on improving her volume status. (4) Edema Current Visit: Yes Status: Chronic See above. 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 Subjective Principal diagnosis: Respiratory insufficiency Interval history: Pt was seen/examined while in the ICU. She remains intubated: thus limiting subjective history. I discussed her vitals, labs, I/Os with the HARDBOARD PANEL PRINTER. No acute events overnight, other than abd pain - she's going for CT abd this AM. Objective - Vital Signs Vital signs: Vital Signs Temp Pulse Resp BP Pulse Ox 06/26/17 10:06 92 18 79/53 94 06/26/17 09:33 18 82/49 95 06/26/17 09:25 87 18 80/51 95 06/26/17 08:36 88 18 94/61 95 06/26/17 08:00 99.2 F 06/26/17 07:37 18 88/57 95 06/26/17 06:00 98 18 90/67 93 06/26/17 05:15 19 102/66 95 06/26/17 05:03 100 18 98/64 93 06/26/17 04:00 96 19 101/61 93 07/29/17 03:12 98.9 F 06/26/17 03:00 96 06/26/17 01:44 18 87/48 95 06/26/17 01:00 111 20 90/61 91 06/26/17 00:00 106 18 102/51 92 06/25/17 23:45 99 20 92/56 93 06/25/17 23:40 99.1 F 06/25/17 23:34 18 97/58 96 06/25/17 22:00 98 19 91/58 95 06/25/17 21:23 19 89/49 96 06/25/17 21:00 90 18 88/49 96 06/25/17 20:25 104 19 97/61 93 06/25/17 19:39 18 100/63 94 06/25/17 19:30 94 18 100/63 98 06/25/17 19:10 98.6 F 06/25/17 18:00 90 18 93/65 96 06/25/17 17:10 19 93/59 95 06/25/17 17:00 90 18 95 06/25/17 16:00 95 20 101/58 94 06/25/17 15:49 99.4 F 06/25/17 15:42 18 100/59 95 06/25/17 15:00 88 18 102/63 95 06/25/17 13:40 18 91/51 94 06/25/17 13:00 90 18 90/56 95 06/25/17 12:00 95 18 98/58 94 06/25/17 11:49 99.1 F 06/25/17 11:36 18 97/62 94 06/25/17 11:00 90 Intake and Output 06/25/17 06/26/17 06/26/17 23:59 07:59 15:59 Intake Total 1309 / 1309 400 / 400 1000 / 1000 Output Total 925 / 925 200 / 200 Balance 384 / 384 200 / 200 1000 / 1000 Intake: IV Fluids 950 / 950 400 / 400 PRECEDEX 400 mcg In 100 300 / 300 200 / 200 ml @ 0.3 MCG/KG/HR 10.358 mls/hr IVC .Q9H40M [facility] Rx#:[id number] FentaNYL (PF) 3,000 MCG 300 / 300 In 0.9 % Sodium Chloride 240 ML @ 100 MCG/HR 10 mls/hr IVC CONT [facility] Rx#: [id number] Versed 50 MG In 0.9 % 100 / 100 Sodium Chloride 90 ML @ 2 MG/HR 4 mls/hr IVC CONT [facility] Rx#:[id number] Primacor Premix 20 MG/100 100 / 100 100 / 100 ML 20 mg In 100 ml @ 0. 25 MCG/KG/MIN 10.253 mls/ hr IVC CONT [facility] Rx#: [id number] Levophed 4 MG In Dextrose 250 / 250 5% 250 ML @ 5 MCG/MIN 18 .75 mls/hr IVC CONT [facility] Rx#:[id number] Oral 0 / 0 Tube Feeding 359 / 359 Free Water 0 / 0 Free Water Intake Amount 0 / 0 1000 / 1000 Output: Catheter 925 / 925 200 / 200 Other: Stool Size Moderate Stool Consistency liquid Stool Color Brown Yellow # Bowel Movements 0 Weight 133.345 kg Blood Glucose* 180 158 170 Patient Weight 06/26/17 23:59 Weight 133.345 kg - General Appearance General appearance: Present: obese, intubated, fatigue, frail, anxious EENT: Present: mucous membranes moist Neck: Present: supple Respiratory: Present: course breath sounds Cardiology: Present: edema (mostly nonpitting "puffy" edema in hands and pretibial / pedal regions), regular rate, normal S1, normal S2 Gastrointestinal: Present: normoactive bowel sounds, no tenderness, no guarding Integumentary: Present: warm and dry Neurologic: Present: no focal deficit, no asterixis Musculoskeletal: Present: no erythema, no cyanosis Psychiatric: Present: cooperative - Lab 06/26/17 04:50 06/26/17 04:50 Most recent lab results ABG pH 7.35 pH Units (7.32-7.45) 06/26/17 05:45 ABG pCO2 61 mmHg (35-45) H 06/26/17 05:45 ABG pO2 78 mmHg (85-104) L 06/26/17 05:45 ABG HCO3 33.7 mEQ/L (21-27) H 06/26/17 05:45 ABG O2 Saturation 95 % (95-98) 06/26/17 05:45 Calcium 8.7 mg/dL (8.6-10.8) 06/26/17 04:50 Phosphorus 4.3 mg/dL (2.3-4.7) 06/26/17 04:50 Magnesium 1.8 mg/dL (1.6-2.6) 06/26/17 04:50 Urine Creatinine 88 mg/dL 06/17/17 07:15 Urine Sodium 27.0 mEq/L 06/17/17 07:15 - VTE Documentation of Mechanical Device: Intermittent pneumatic compression device Consult Discharge Plan - Plan Referrals: Mi Warren, DOUGHNUT MAKER [Advanced Practice Nurse] - (computers are down call back later )
--- NOTE | 2017-06-26 10:32 | Pulmonology Progress Note ---
Date of Encounter: 06/26/17 Time of Encounter: 10:25 Assessment and Plan (1) Acute and chronic respiratory failure Current Visit: Yes Status: Acute Patient seen and examined at bedside Labs, radiology, chart personally reviewed. All lines examined without evidence of infection. Management was reviewed during multidisciplinary critical care rounds. Neuropsych: She is having intermittent bouts of anxiety continue atypical antipsychotic for this along with infusion of Precedex Pulm: Acute on chronic hypoxic hypercarbic respiratory failure secondary to COPD SMITA obesity hypoventilation syndrome with evidence of likely WHO group 3 pulmonary hypertension she is on ventilator support through tracheostomy with acceptable oxygenation and ventilation I suspect we could start daily positive airway pressure trials; likely will need trach change tomorrow which would need to be done in operating room ENT following Cards: Decompensated cor pulmonale I have attempted to stop her vasopressor and inotropic support as renal perfusion has improved we will continue to monitor this FEN-GI: Continue enteral nutrition through small bore nasogastric tube. Plan for abdominal CT today with oral contrast; she does have history of cholelithiasis and I suspect this is contributing to her chronic abdominal pain although not currently a surgical candidate she has been evaluated by the general surgery service Renal: Acute kidney injury which is improving we will continue her loop diuretic for goal -1-2 L replace electrolytes per protocol ID: Persistent leukocytosis without clear source of infection although this may be related to her cholethiasis abdominal CT pending today Heme/Onc: DVT prophylaxis given hemoglobin and platelets are stable Endo: Glucose monitor and continue insulin coverage Integ/MSK: Skin care per routine ICU protocol prevent ulcers CODE: Full Qualifiers: Respiratory failure complication: hypoxia and hypercapnia Qualified Code(s) : J96.21 - Acute and chronic respiratory failure with hypoxia; J96.22 - Acute and chronic respiratory failure with hypercapnia (2) Acute on chronic renal failure Current Visit: Yes Status: Acute Qualifiers: Acute renal failure type: unspecified Chronic kidney disease stage: stage 3 (moderate) Qualified Code(s): N17.9 - Acute kidney failure, unspecified; N18.3 - Chronic kidney disease, stage 3 (moderate) (3) Moderate to severe pulmonary hypertension Current Visit: Yes Status: Chronic (4) Morbid obesity with BMI of 50.0-59.9, adult Current Visit: Yes Status: Chronic (5) Candidal intertrigo Current Visit: No Status: Acute (6) SMITA treated with BiPAP Current Visit: Yes Status: Chronic (7) Cor pulmonale Current Visit: Yes Status: Acute (8) Chronic systolic (congestive) heart failure Current Visit: Yes Status: Chronic Subjective Principal diagnosis: Respiratory insufficiency Interval history: Ms Corbett complained of worsening abdominal pain and overnight her bowel regimen was advanced she had a small bowel movement felt a bit better she has had good urine output with advancement of her loop diuretic regimen she is comfortable today when I examined her Objective PUL Vital signs: Last Vital Signs Temp 99.2 F 06/26/17 08:00 Pulse 92 06/26/17 10:06 Resp 18 06/26/17 10:06 BP 79/53 06/26/17 10:06 Pulse Ox 94 06/26/17 10:06 General appearance: no acute distress ENT: other (Tracheostomy noted without evidence of bleeding she also has a small bore nasogastric tube) Effort: normal Auscultation: bilateral: diminished breath sounds Cardiovascular: regular rate and rhythm Gastrointestinal: hypoactive bowel sounds, soft, tender (Mildly tender without rebound or rigidity) Extremities: edema normal mental status, non-focal exam other (She is somewhat despondent today) Ventilator Settings Ventilator Settings: Ventilator Settings, Last 8 Hours Ventilator Mode VC+ Ventilator Mode VC+ Ventilator Mode VC+ Ventilator Mode VC+ Ventilator Mode VC+ Ventilator Mode VC+ Ventilator Mode VC+ Ventilator Mode VC+ Ventilator Mode VC+ Ventilator Mode VC+ Ventilator Tidal Volume 450 Setting Ventilator Tidal Volume 450 Setting Ventilator Tidal Volume 450 Setting Ventilator Tidal Volume 450 Setting Ventilator Tidal Volume 450 Setting Ventilator Tidal Volume 450 Setting Ventilator Tidal Volume 450 Setting Ventilator Tidal Volume 450 Setting Ventilator Tidal Volume 450 Setting Ventilator Tidal Volume 450 Setting Ventilator Respiratory Rate 18 Setting Ventilator Respiratory Rate 18 Setting Ventilator Respiratory Rate 18 Setting Ventilator Respiratory Rate 18 Setting Ventilator Respiratory Rate 18 Setting Ventilator Respiratory Rate 18 Setting Ventilator Respiratory Rate 18 Setting Ventilator Respiratory Rate 18 Setting Ventilator Respiratory Rate 18 Setting Ventilator Respiratory Rate 18 Setting Actual Respiratory Rate 18 Actual Respiratory Rate 18 Actual Respiratory Rate 18 Actual Respiratory Rate 18 Actual Respiratory Rate 18 Actual Respiratory Rate 18 Actual Respiratory Rate 19 Actual Respiratory Rate 18 Actual Respiratory Rate 18 Positive End Expiratory 8 Pressure Positive End Expiratory 8 Pressure Positive End Expiratory 8 Pressure Positive End Expiratory 8 Pressure Positive End Expiratory 8 Pressure Positive End Expiratory 8 Pressure Positive End Expiratory 8 Pressure Positive End Expiratory 8 Pressure Positive End Expiratory 8 Pressure Positive End Expiratory 8 Pressure Peak Inspiratory Airway 35 Pressure Peak Inspiratory Airway 35 Pressure Peak Inspiratory Airway 36 Pressure Peak Inspiratory Airway 36 Pressure Peak Inspiratory Airway 34 Pressure Peak Inspiratory Airway 31 Pressure Peak Inspiratory Airway 36 Pressure Peak Inspiratory Airway 31 Pressure Peak Inspiratory Airway 32 Pressure Results - Laboratory Findings CBC and BMP: 06/26/17 04:50 06/26/17 04:50 ABG ABG pH 7.35 pH Units (7.32-7.45) 06/26/17 05:45 ABG pCO2 61 mmHg (35-45) H 06/26/17 05:45 ABG pO2 78 mmHg (85-104) L 06/26/17 05:45 ABG O2 Saturation 95 % (95-98) 06/26/17 05:45 PT/INR, D-dimer PT 14.6 Seconds (9.4-12.1) H 06/22/17 03:30 Abnormal lab findings: Abnormal lab results WBC 18.7 K/mcL (4.3-11.1) H 06/26/17 04:50 RBC 3.11 M/mcL (3.82-4.97) L 06/26/17 04:50 Hgb 8.5 g/dL (11.5-15.4) L 06/26/17 04:50 Hct 29.0 % (35.3-44.9) L 06/26/17 04:50 MCH 27.3 pg (28.0-33.3) L 06/26/17 04:50 MCHC 29.3 g/dL (31.6-35.5) L 06/26/17 04:50 RDW 17.2 % (11.5-14.5) H 06/26/17 04:50 Neutrophils # 16.4 K/mcL (1.6-8.9) H 06/26/17 04:50 Nucleated RBCs/100 WBC 0.3 /100 WBC (0) H 06/03/17 04:00 Reactive Lymphocytes Present (Not Present) A 06/01/17 03:30 Large Platelets Present (Not Present) A 06/17/17 03:00 Immature Plt Fraction 10.6 % (1.1-6.1) H 06/06/17 04:40 Polychromasia 1+ (Not Present) A 06/01/17 03:30 Hypochromasia Present (Not Present) A 06/17/17 03:00 Basophilic Stippling 1+ (Not Present) A 06/01/17 03:30 Anisocytosis 1+ (Not Present) A 06/23/17 07:57 Microcytosis Present (Not Present) A 06/17/17 03:00 Macrocytosis Present (Not Present) A 06/17/17 03:00 PT 14.6 Seconds (9.4-12.1) H 06/22/17 03:30 ABG pCO2 61 mmHg (35-45) H 06/26/17 05:45 ABG pO2 78 mmHg (85-104) L 06/26/17 05:45 ABG HCO3 33.7 mEQ/L (21-27) H 06/26/17 05:45 ABG Total CO2 35.6 mEq/L (20-26) H 06/26/17 05:45 ABG Base Excess 6.7 mEq/L (-2.0 to 3.0) H 06/26/17 05:45 VBG pH 7.50 pH Units (7.32-7.42) H 05/31/17 21:46 VBG pO2 202 mmHg (25-40) H 05/31/17 21:46 VBG HCO3 36.7 mEq/L (21-27) H 05/31/17 21:46 Mixed VBG pH 7.29 (7.34-7.36) L 05/31/17 21:46 Mixed VBG pCO2 89 mmHg (44-46) H 05/31/17 21:46 Mixed VBG pO2 73 mmHg (35-45) H 05/31/17 21:46 Mixed VBG Oxyhemoglobin 93.0 % (60-80) H 05/31/17 21:46 Sodium 133 mEq/L (136-145) L 06/26/17 04:50 Chloride 96 mEq/L (98-109) L 06/26/17 04:50 Carbon Dioxide 31 mEq/L (19-29) H 06/26/17 04:50 BUN 53 mg/dL (7-20) H 06/26/17 04:50 Creatinine 2.22 mg/dL (0.57-1.11) H 06/26/17 04:50 Est GFR ( Amer) 29 (> 60) L 06/26/17 04:50 Est GFR (Non-Af Amer) 24 (> 60) L 06/26/17 04:50 Glucose 192 mg/dL (70-99) H 06/26/17 04:50 POC Glucose 170 (58-89) H 06/26/17 07:38 Direct Bilirubin 0.6 mg/dL (0.0-0.5) H 06/26/17 04:50 Alkaline Phosphatase 169 Units/L (38-126) H 06/26/17 04:50 Creatine Kinase 200 Units/L (29-168) H 06/01/17 03:06 Troponin I 0.36 ng/mL (0-0.03) H* 05/29/17 15:53 Serum Total Protein 5.9 g/dL (6.0-8.3) L 06/26/17 04:50 Albumin 1.7 g/dL (3.5-5.0) L 06/26/17 04:50 Globulin 4.2 g/dL (2.4-3.5) H 06/26/17 04:50 Albumin/Globulin Ratio 0.4 (1.1-2.2) L 06/26/17 04:50 Lipase 112 Units/L (8-78) H 06/22/17 12:35 Urine Clarity Hazy (Clear) A 05/29/17 18:15 Ur Specific [place] 1.026 (1.010-1.025) H 05/29/17 18:15 Urine Protein 30 mg/dL (Neg-Trace) H 05/29/17 18:15 Urine Ketones Trace mg/dL (Negative) H 05/29/17 18:15 Urine Bilirubin Small (Negative) H 05/29/17 18:15 Urine Microscopic WBC 15-30 per hpf (0-3) H 05/29/17 18:15 Ur Squamous Epith Cells Many per lpf (None-Few) H 05/29/17 18:15 Amorphous Sediment Moderate (Few) H 05/29/17 18:15 Urine Bacteria Moderate per hpf (None-Few) H 05/29/17 18:15 Hyaline Casts Moderate per lpf (None-Few) H 05/29/17 18:15 Ur Culture Indicated? YES (NO) A 05/29/17 18:15 - Clinical Findings Intake & Output: Intake & Output 06/25/17 06/26/17 06/26/17 23:59 07:59 15:59 Intake Total 1309 / 1309 400 / 400 1000 / 1000 Output Total 925 / 925 200 / 200 Balance 384 / 384 200 / 200 1000 / 1000 Weight 133.345 kg - VTE Documentation of Mechanical Device: Intermittent pneumatic compression device Consult Discharge Plan - Plan Referrals: Mi Warren, STROKE COORDINATOR [Advanced Practice Nurse] - (computers are down call back later )
[2017-06-26] MEDS: Furosemide 40 MG/4 ML VIAL IVP SCH ×2 (11:15→16:02)
[2017-06-26] MEDS: Norepinephrine 4 MG in D5% in Water 250 ML IVC SCH ×3 (11:17→22:39)
[2017-06-27] MEDS: Dexmedetomidine HCl 400 MCG/100 ML MLS IVC SCH ×6 (00:09→21:16)
[2017-06-27] MEDS: *HR* HYDROmorphone (PF) 1 MG/ML SYRINGE IVP PRN ×4 (00:15→20:27)
[2017-06-27] MEDS: FentaNYL (PF) 3,000 MCG in 0.9 % Sodium Chloride 240 ML IVC SCH ×2 (01:50→19:45)
[2017-06-27 04:00] LABS: Basophils # 0.1 K/mcL (0.0-0.2); Basophils % 0.3 %; Eosinophils # 0.2 K/mcL (0.0-0.6); Hematocrit 27.7 % (35.3-44.9); Hemoglobin 8.5 g/dL (11.5-15.4); Immature Granulocytes % 2.2 % (0-4); Lymphocytes # 1.2 K/mcL (0.6-4.6); Lymphocytes % 7.8 %; Mean Corpuscular HGB Conc 30.7 g/dL (31.6-35.5); Mean Corpuscular Hemoglobin 28.3 pg (28.0-33.3); Mean Corpuscular Volume 92.3 fL (83.0-100.0); Mean Platelet Volume 10.7 fL (9.4-12.4); Monocytes # 0.8 K/mcL (0.0-1.3); Monocytes % 5.3 %; Neutrophils # 12.3 K/mcL (1.6-8.9); Platelet Count 386 K/mcL (140-400); Red Cell Distribution Width 17.2 % (11.5-14.5); Segmented Neutrophils % 83.4 %
[2017-06-27 04:15] LABS: Calcium 8.9 mg/dL (8.6-10.8); Magnesium 1.6 mg/dL (1.6-2.6); Phosphorous 4.7 mg/dL (2.3-4.7); Potassium 3.8 mEq/L (3.5-4.5)
[2017-06-27] MEDS: Lacri-Lube 3.5 GM TUBE BOTH EYES SCH ×5 (04:26→19:46)
[2017-06-27] MEDS: Insulin LISPRO 300 UNITS/3 ML VIAL SQ SCH ×5 (04:26→19:45)
[2017-06-27] MEDS: Potassium Chloride 40 MEQ/200 ML BAG IVPB PRN (06:02)
[2017-06-27] MEDS: *HR* Heparin 5,000 UNIT/ML VIAL SQ SCH ×2 (06:02→17:54)
[2017-06-27] MEDS: Magnesium Sulfate 2 GM in D5% in Water 100 ML IVPB PRN (06:03)
--- NOTE | 2017-06-27 07:50 | Pulmonology Progress Note ---
<Ronald Stevens W - Last Filed: 06/27/17 11:41> Date of Encounter: 06/27/17 Assessment and Plan (1) Acute and chronic respiratory failure Current Visit: Yes Status: Acute Qualifiers: Respiratory failure complication: hypoxia and hypercapnia Qualified Code(s) : J96.21 - Acute and chronic respiratory failure with hypoxia; J96.22 - Acute and chronic respiratory failure with hypercapnia (2) Acute on chronic renal failure Current Visit: Yes Status: Acute Qualifiers: Acute renal failure type: unspecified Chronic kidney disease stage: stage 3 (moderate) Qualified Code(s): N17.9 - Acute kidney failure, unspecified; N18.3 - Chronic kidney disease, stage 3 (moderate) (3) Moderate to severe pulmonary hypertension Current Visit: Yes Status: Chronic (4) Morbid obesity with BMI of 50.0-59.9, adult Current Visit: Yes Status: Chronic (5) Candidal intertrigo Current Visit: No Status: Acute (6) SMITA treated with BiPAP Current Visit: Yes Status: Chronic (7) Cor pulmonale Current Visit: Yes Status: Acute (8) Chronic systolic (congestive) heart failure Current Visit: Yes Status: Chronic Objective PUL Vital signs: Last Vital Signs Temp 98.3 F 06/27/17 08:03 Pulse 99 06/27/17 11:00 Resp 19 06/27/17 11:00 BP 99/51 06/27/17 11:00 Pulse Ox 94 06/27/17 11:00 Ventilator Settings Ventilator Settings: Ventilator Settings, Last 8 Hours Ventilator Mode VC+ Ventilator Mode VC+ Ventilator Mode VC+ Ventilator Mode VC+ Ventilator Mode VC+ Ventilator Mode VC+ Ventilator Mode VC+ Ventilator Mode VC+ Ventilator Mode VC+ Ventilator Mode VC+ Ventilator Tidal Volume 450 Setting Ventilator Tidal Volume 450 Setting Ventilator Tidal Volume 450 Setting Ventilator Tidal Volume 450 Setting Ventilator Tidal Volume 450 Setting Ventilator Tidal Volume 450 Setting Ventilator Tidal Volume 450 Setting Ventilator Tidal Volume 450 Setting Ventilator Tidal Volume 450 Setting Ventilator Tidal Volume 450 Setting Ventilator Respiratory Rate 18 Setting Ventilator Respiratory Rate 18 Setting Ventilator Respiratory Rate 18 Setting Ventilator Respiratory Rate 18 Setting Ventilator Respiratory Rate 18 Setting Ventilator Respiratory Rate 18 Setting Ventilator Respiratory Rate 18 Setting Ventilator Respiratory Rate 18 Setting Ventilator Respiratory Rate 18 Setting Ventilator Respiratory Rate 18 Setting Actual Respiratory Rate 19 Actual Respiratory Rate 20 Actual Respiratory Rate 24 Actual Respiratory Rate 18 Actual Respiratory Rate 20 Actual Respiratory Rate 18 Actual Respiratory Rate 18 Actual Respiratory Rate 18 Actual Respiratory Rate 18 Actual Respiratory Rate 18 Positive End Expiratory 8 Pressure Positive End Expiratory 8 Pressure Positive End Expiratory 8 Pressure Positive End Expiratory 8 Pressure Positive End Expiratory 8 Pressure Positive End Expiratory 8 Pressure Positive End Expiratory 8 Pressure Positive End Expiratory 8 Pressure Positive End Expiratory 8 Pressure Positive End Expiratory 8 Pressure Peak Inspiratory Airway 22 Pressure Peak Inspiratory Airway 31 Pressure Peak Inspiratory Airway 36 Pressure Peak Inspiratory Airway 32 Pressure Peak Inspiratory Airway 33 Pressure Peak Inspiratory Airway 34 Pressure Peak Inspiratory Airway 34 Pressure Peak Inspiratory Airway 34 Pressure Results - Laboratory Findings CBC and BMP: 06/27/17 03:33 06/27/17 03:33 ABG ABG pH 7.35 pH Units (7.32-7.45) 06/26/17 05:45 ABG pCO2 61 mmHg (35-45) H 06/26/17 05:45 ABG pO2 78 mmHg (85-104) L 06/26/17 05:45 ABG O2 Saturation 95 % (95-98) 06/26/17 05:45 PT/INR, D-dimer PT 14.6 Seconds (9.4-12.1) H 06/22/17 03:30 Abnormal lab findings: Abnormal lab results WBC 14.8 K/mcL (4.3-11.1) H 06/27/17 03:33 RBC 3.00 M/mcL (3.82-4.97) L 06/27/17 03:33 Hgb 8.5 g/dL (11.5-15.4) L 06/27/17 03:33 Hct 27.7 % (35.3-44.9) L 06/27/17 03:33 MCHC 30.7 g/dL (31.6-35.5) L 06/27/17 03:33 RDW 17.2 % (11.5-14.5) H 06/27/17 03:33 Neutrophils # 12.3 K/mcL (1.6-8.9) H 06/27/17 03:33 Nucleated RBCs/100 WBC 0.3 /100 WBC (0) H 06/03/17 04:00 Reactive Lymphocytes Present (Not Present) A 06/01/17 03:30 Large Platelets Present (Not Present) A 06/17/17 03:00 Immature Plt Fraction 10.6 % (1.1-6.1) H 06/06/17 04:40 Polychromasia 1+ (Not Present) A 06/01/17 03:30 Hypochromasia Present (Not Present) A 06/17/17 03:00 Basophilic Stippling 1+ (Not Present) A 06/01/17 03:30 Anisocytosis 1+ (Not Present) A 06/23/17 07:57 Microcytosis Present (Not Present) A 06/17/17 03:00 Macrocytosis Present (Not Present) A 06/17/17 03:00 PT 14.6 Seconds (9.4-12.1) H 06/22/17 03:30 ABG pCO2 61 mmHg (35-45) H 06/26/17 05:45 ABG pO2 78 mmHg (85-104) L 06/26/17 05:45 ABG HCO3 33.7 mEQ/L (21-27) H 06/26/17 05:45 ABG Total CO2 35.6 mEq/L (20-26) H 06/26/17 05:45 ABG Base Excess 6.7 mEq/L (-2.0 to 3.0) H 06/26/17 05:45 VBG pH 7.50 pH Units (7.32-7.42) H 05/31/17 21:46 VBG pO2 202 mmHg (25-40) H 05/31/17 21:46 VBG HCO3 36.7 mEq/L (21-27) H 05/31/17 21:46 Mixed VBG pH 7.29 (7.34-7.36) L 05/31/17 21:46 Mixed VBG pCO2 89 mmHg (44-46) H 05/31/17 21:46 Mixed VBG pO2 73 mmHg (35-45) H 05/31/17 21:46 Mixed VBG Oxyhemoglobin 93.0 % (60-80) H 05/31/17 21:46 Sodium 133 mEq/L (136-145) L 06/27/17 03:33 Chloride 93 mEq/L (98-109) L 06/27/17 03:33 Carbon Dioxide 31 mEq/L (19-29) H 06/27/17 03:33 BUN 52 mg/dL (7-20) H 06/27/17 03:33 Creatinine 2.11 mg/dL (0.57-1.11) H 06/27/17 03:33 Est GFR ( Amer) 31 (> 60) L 06/27/17 03:33 Est GFR (Non-Af Amer) 25 (> 60) L 06/27/17 03:33 Glucose 176 mg/dL (70-99) H 06/27/17 03:33 POC Glucose 180 (58-89) H 06/27/17 11:35 Direct Bilirubin 0.6 mg/dL (0.0-0.5) H 06/26/17 04:50 Alkaline Phosphatase 169 Units/L (38-126) H 06/26/17 04:50 Creatine Kinase 200 Units/L (29-168) H 06/01/17 03:06 Troponin I 0.36 ng/mL (0-0.03) H* 05/29/17 15:53 Serum Total Protein 5.9 g/dL (6.0-8.3) L 06/26/17 04:50 Albumin 1.7 g/dL (3.5-5.0) L 06/26/17 04:50 Globulin 4.2 g/dL (2.4-3.5) H 06/26/17 04:50 Albumin/Globulin Ratio 0.4 (1.1-2.2) L 06/26/17 04:50 Lipase 112 Units/L (8-78) H 06/22/17 12:35 Urine Clarity Hazy (Clear) A 05/29/17 18:15 Ur Specific [place] 1.026 (1.010-1.025) H 05/29/17 18:15 Urine Protein 30 mg/dL (Neg-Trace) H 05/29/17 18:15 Urine Ketones Trace mg/dL (Negative) H 05/29/17 18:15 Urine Bilirubin Small (Negative) H 05/29/17 18:15 Urine Microscopic WBC 15-30 per hpf (0-3) H 05/29/17 18:15 Ur Squamous Epith Cells Many per lpf (None-Few) H 05/29/17 18:15 Amorphous Sediment Moderate (Few) H 05/29/17 18:15 Urine Bacteria Moderate per hpf (None-Few) H 05/29/17 18:15 Hyaline Casts Moderate per lpf (None-Few) H 05/29/17 18:15 Ur Culture Indicated? YES (NO) A 05/29/17 18:15 - Clinical Findings Intake & Output: Intake & Output 06/26/17 06/27/17 06/27/17 23:59 07:59 15:59 Intake Total 532 / 532 450 / 450 699 / 699 Output Total 950 / 950 1400 / 1400 500 / 500 Balance -418 / -418 -950 / -950 199 / 199 Weight 134.762 kg Consult Discharge Plan - Plan Referrals: Mi Warren, [employer] [Advanced Practice Nurse] - (computers are down call back later ) - Attending Attestation I examined this patient and my medical decision-making was reviewed with the Resident Physician. I agree with the documented findings, disposition and treatment plan as described except to the extent set forth below. Patient seen and examined at bedside Labs, radiology, chart personally reviewed. All lines examined without evidence of infection. Management was reviewed during multidisciplinary critical care rounds. Neuropsych: She is having intermittent bouts of anxiety continue atypical antipsychotic for this along with infusion of Precedex. We are attempting to wean the infusion of fentanyl Pulm: Acute on chronic hypoxic hypercarbic respiratory failure secondary to COPD SMITA obesity hypoventilation syndrome with evidence of likely WHO group 3 pulmonary hypertension she is on ventilator support through tracheostomy with acceptable oxygenation and ventilation I suspect we could start daily positive airway pressure trials; likely will need trach change on Wednesday which would need to be done in operating room ENT following Cards: Decompensated cor pulmonale decreasing requirement for vasopressor and inotropic she has evidence of improved renal perfusion FEN-GI: Continue enteral nutrition through small bore nasogastric tube. Persistent leukocytosis with evidence of cholecystitis on CT scan starting antimicrobials for this Renal: Acute kidney injury which is improving we will continue her loop diuretic for goal -2 L replace electrolytes per protocol ID: Persistent leukocytosis possibly secondary to hepatobiliary etiology ( cholecystitis) we are starting antimicrobial coverage for this. She is not currently a surgical candidate based upon imaging no clear indication for percutaneous drainage Heme/Onc: DVT prophylaxis given hemoglobin and platelets are stable Endo: Glucose monitor and continue insulin coverage Integ/MSK: Skin care per routine ICU protocol prevent ulcers CODE: Full <Nell Lagunas - Last Filed: 06/27/17 12:07> Date of Encounter: 06/27/17 Time of Encounter: 07:50 Assessment and Plan (1) Acute and chronic respiratory failure Current Visit: Yes Status: Acute Patient initially presented to the hospital status post fall. She subsequently was found to have an increased troponin and to be in rhabdomyolysis. She began having respiratory distress. She was placed on BiPAP. She was emergently intubated for acute on chronic respiratory failure. She does have a history of coronary hypertension as well as decompensated right heart failure. She was intubated and placed on the ventilator. She was sedated with Versed as well as fentanyl. She was also placed on vasopressors and milrinone. She was diuresed with lasix. Patient was extubated and sent to the floor. She subsequently decompensated and had to be reintubated. At this time it was decided that the patient should have a trach. Yesterday the trach was placed. She did have an episode where she coded. She has been on Levofed. We attempt to wean this and then added back due to her map decreasing. We will continue to attempt to wean. She is on fentanyl and Precedex for sedation. However she is alert and follows you throughout the room. She is able to communicate. She expresses that her belly does ache however this is no different than her chronic pain. She appears less anxious than yesterday. She is on Seroquel to help with the anxiety. Her white count is trending down however with a continued abdominal pain we will start her on Zosyn for cholelithiasis. She has not a surgical candidate at this time. We will also continue Lasix pushes daily. Plan: Continue Levofed for a map of 60. Continue fentanyl and Precedex. Wean as tolerated. Heparin subcutaneous for DVT prophylaxis. Dobbhoff placement Began enteral feedings. Seroquel for agitation. Diuresis today. Continue milrinone. Beginning Zosyn for cholelithiasis. Protonix for GI prophylaxis Continue IV Lasix Monitor I's and O's Qualifiers: Respiratory failure complication: hypoxia and hypercapnia Qualified Code(s) : J96.21 - Acute and chronic respiratory failure with hypoxia; J96.22 - Acute and chronic respiratory failure with hypercapnia (2) Chronic systolic (congestive) heart failure Current Visit: Yes Status: Chronic Plan as above (3) Cor pulmonale Current Visit: Yes Status: Chronic Plan as above (4) Moderate to severe pulmonary hypertension Current Visit: Yes Status: Chronic Plan as above (5) Morbid obesity with BMI of 50.0-59.9, adult Current Visit: Yes Status: Chronic Plan as above (6) SMITA treated with BiPAP Current Visit: Yes Status: Chronic Plan as above (7) Acute on chronic renal failure Current Visit: Yes Status: Acute Patient diuresing well. Creatinine has decreased. Plan: Continue to monitor urine output Continue to monitor creatinine Qualifiers: Acute renal failure type: unspecified Chronic kidney disease stage: stage 3 (moderate) Qualified Code(s): N17.9 - Acute kidney failure, unspecified; N18.3 - Chronic kidney disease, stage 3 (moderate) Subjective Principal diagnosis: Respiratory insufficiency Interval history: Patient stable overnight. She is still requiring levo fed. We will continue to attempt to wean the levofed. She is on Precedex and fentanyl and Versed for sedation. We will also attempt to wean these. She had a trach placed. She also had a Dobbhoff placed. We are beginning enteral feedings. She is alert and following me throughout the room. She is able to communicate. She complains of upper abdominal pain on exam today. She states this is her chronic pain. It is not out of proportion to normal for her. Lung sounds are clear. Patient on heparin for DVT prophylaxis. We will continue to diurese her today. We talked with nephro. They suggest that if we end up needing to start a Lasix drip that that would be okay with them however patient has been responding well to IV Lasix. We will continue this. She is making a large amount of urine. Will begin patient on Zosyn today for her cholelithiasis. Increased white count. Objective PUL Vital signs: Last Vital Signs Temp 98.6 F 06/27/17 04:54 Pulse 98 06/27/17 06:00 Resp 18 06/27/17 06:00 BP 103/59 06/27/17 06:00 Pulse Ox 94 06/27/17 06:00 General appearance: no acute distress, alert Eyes: nonicteric ENT: oropharynx moist Neck: supple Effort: normal Auscultation: bilateral: clear Cardiovascular: regular rate and rhythm Gastrointestinal: normoactive bowel sounds, soft, tender (The upper quadrants.) , non-distended, other (Exam complicated by patient's body habitus.) Integumentary: normal Extremities: no cyanosis, no clubbing, pink and warm, pulses normal, edema ( pitting to bilateral lower extremities dependent to hips) Musculoskeletal: no deformities Gait: normal posture normal mental status, non-focal exam, pupils equal and round mood appropriate, affect normal Ventilator Settings Ventilator Settings: Ventilator Settings, Last 8 Hours Ventilator Mode VC+ Ventilator Mode VC+ Ventilator Mode VC+ Ventilator Mode VC+ Ventilator Mode VC+ Ventilator Mode VC+ Ventilator Mode VC+ Ventilator Mode VC+ Ventilator Mode VC+ Ventilator Mode VC+ Ventilator Tidal Volume 450 Setting Ventilator Tidal Volume 450 Setting Ventilator Tidal Volume 450 Setting Ventilator Tidal Volume 450 Setting Ventilator Tidal Volume 450 Setting Ventilator Tidal Volume 450 Setting Ventilator Tidal Volume 450 Setting Ventilator Tidal Volume 450 Setting Ventilator Tidal Volume 450 Setting Ventilator Tidal Volume 450 Setting Ventilator Respiratory Rate 18 Setting Ventilator Respiratory Rate 18 Setting Ventilator Respiratory Rate 18 Setting Ventilator Respiratory Rate 18 Setting Ventilator Respiratory Rate 18 Setting Ventilator Respiratory Rate 18 Setting Ventilator Respiratory Rate 18 Setting Ventilator Respiratory Rate 18 Setting Ventilator Respiratory Rate 18 Setting Ventilator Respiratory Rate 18 Setting Actual Respiratory Rate 18 Actual Respiratory Rate 18 Actual Respiratory Rate 18 Actual Respiratory Rate 18 Actual Respiratory Rate 18 Actual Respiratory Rate 18 Actual Respiratory Rate 18 Actual Respiratory Rate 18 Actual Respiratory Rate 18 Actual Respiratory Rate 18 Positive End Expiratory 8 Pressure Positive End Expiratory 8 Pressure Positive End Expiratory 8 Pressure Positive End Expiratory 8 Pressure Positive End Expiratory 8 Pressure Positive End Expiratory 8 Pressure Positive End Expiratory 8 Pressure Positive End Expiratory 8 Pressure Positive End Expiratory 8 Pressure Positive End Expiratory 8 Pressure Peak Inspiratory Airway 32 Pressure Peak Inspiratory Airway 33 Pressure Peak Inspiratory Airway 34 Pressure Peak Inspiratory Airway 34 Pressure Peak Inspiratory Airway 34 Pressure Peak Inspiratory Airway 35 Pressure Peak Inspiratory Airway 33 Pressure Peak Inspiratory Airway 32 Pressure Peak Inspiratory Airway 32 Pressure Results - Laboratory Findings CBC and BMP: 06/27/17 03:33 06/27/17 03:33 ABG ABG pH 7.35 pH Units (7.32-7.45) 06/26/17 05:45 ABG pCO2 61 mmHg (35-45) H 06/26/17 05:45 ABG pO2 78 mmHg (85-104) L 06/26/17 05:45 ABG O2 Saturation 95 % (95-98) 06/26/17 05:45 PT/INR, D-dimer PT 14.6 Seconds (9.4-12.1) H 06/22/17 03:30 Abnormal lab findings: Abnormal lab results WBC 14.8 K/mcL (4.3-11.1) H 06/27/17 03:33 RBC 3.00 M/mcL (3.82-4.97) L 06/27/17 03:33 Hgb 8.5 g/dL (11.5-15.4) L 06/27/17 03:33 Hct 27.7 % (35.3-44.9) L 06/27/17 03:33 MCHC 30.7 g/dL (31.6-35.5) L 06/27/17 03:33 RDW 17.2 % (11.5-14.5) H 06/27/17 03:33 Neutrophils # 12.3 K/mcL (1.6-8.9) H 06/27/17 03:33 Nucleated RBCs/100 WBC 0.3 /100 WBC (0) H 06/03/17 04:00 Reactive Lymphocytes Present (Not Present) A 06/01/17 03:30 Large Platelets Present (Not Present) A 06/17/17 03:00 Immature Plt Fraction 10.6 % (1.1-6.1) H 06/06/17 04:40 Polychromasia 1+ (Not Present) A 06/01/17 03:30 Hypochromasia Present (Not Present) A 06/17/17 03:00 Basophilic Stippling 1+ (Not Present) A 06/01/17 03:30 Anisocytosis 1+ (Not Present) A 06/23/17 07:57 Microcytosis Present (Not Present) A 06/17/17 03:00 Macrocytosis Present (Not Present) A 06/17/17 03:00 PT 14.6 Seconds (9.4-12.1) H 06/22/17 03:30 ABG pCO2 61 mmHg (35-45) H 06/26/17 05:45 ABG pO2 78 mmHg (85-104) L 06/26/17 05:45 ABG HCO3 33.7 mEQ/L (21-27) H 06/26/17 05:45 ABG Total CO2 35.6 mEq/L (20-26) H 06/26/17 05:45 ABG Base Excess 6.7 mEq/L (-2.0 to 3.0) H 06/26/17 05:45 VBG pH 7.50 pH Units (7.32-7.42) H 05/31/17 21:46 VBG pO2 202 mmHg (25-40) H 05/31/17 21:46 VBG HCO3 36.7 mEq/L (21-27) H 05/31/17 21:46 Mixed VBG pH 7.29 (7.34-7.36) L 05/31/17 21:46 Mixed VBG pCO2 89 mmHg (44-46) H 05/31/17 21:46 Mixed VBG pO2 73 mmHg (35-45) H 05/31/17 21:46 Mixed VBG Oxyhemoglobin 93.0 % (60-80) H 05/31/17 21:46 Sodium 133 mEq/L (136-145) L 06/27/17 03:33 Chloride 93 mEq/L (98-109) L 06/27/17 03:33 Carbon Dioxide 31 mEq/L (19-29) H 06/27/17 03:33 BUN 52 mg/dL (7-20) H 06/27/17 03:33 Creatinine 2.11 mg/dL (0.57-1.11) H 06/27/17 03:33 Est GFR ( Amer) 31 (> 60) L 06/27/17 03:33 Est GFR (Non-Af Amer) 25 (> 60) L 06/27/17 03:33 Glucose 176 mg/dL (70-99) H 06/27/17 03:33 POC Glucose 172 (58-89) H 06/27/17 07:42 Direct Bilirubin 0.6 mg/dL (0.0-0.5) H 06/26/17 04:50 Alkaline Phosphatase 169 Units/L (38-126) H 06/26/17 04:50 Creatine Kinase 200 Units/L (29-168) H 06/01/17 03:06 Troponin I 0.36 ng/mL (0-0.03) H* 05/29/17 15:53 Serum Total Protein 5.9 g/dL (6.0-8.3) L 06/26/17 04:50 Albumin 1.7 g/dL (3.5-5.0) L 06/26/17 04:50 Globulin 4.2 g/dL (2.4-3.5) H 06/26/17 04:50 Albumin/Globulin Ratio 0.4 (1.1-2.2) L 06/26/17 04:50 Lipase 112 Units/L (8-78) H 06/22/17 12:35 Urine Clarity Hazy (Clear) A 05/29/17 18:15 Ur Specific [place] 1.026 (1.010-1.025) H 05/29/17 18:15 Urine Protein 30 mg/dL (Neg-Trace) H 05/29/17 18:15 Urine Ketones Trace mg/dL (Negative) H 05/29/17 18:15 Urine Bilirubin Small (Negative) H 05/29/17 18:15 Urine Microscopic WBC 15-30 per hpf (0-3) H 05/29/17 18:15 Ur Squamous Epith Cells Many per lpf (None-Few) H 05/29/17 18:15 Amorphous Sediment Moderate (Few) H 05/29/17 18:15 Urine Bacteria Moderate per hpf (None-Few) H 05/29/17 18:15 Hyaline Casts Moderate per lpf (None-Few) H 05/29/17 18:15 Ur Culture Indicated? YES (NO) A 05/29/17 18:15 - Clinical Findings Intake & Output: Intake & Output 06/26/17 06/26/17 06/27/17 15:59 23:59 07:59 Intake Total 1893 / 1893 532 / 532 450 / 450 Output Total 800 / 800 950 / 950 1400 / 1400 Balance 1093 / 1093 -418 / -418 -950 / -950 Weight 134.762 kg - VTE Documentation of Mechanical Device: Intermittent pneumatic compression device
[2017-06-27] MEDS: Budesonide/Formoterol 160/4.5 MDI IH SCH ×2 (07:58→19:57)
[2017-06-27] MEDS: Pantoprazole 40 MG VIAL IVP SCH (08:38)
[2017-06-27] MEDS: Furosemide 40 MG/4 ML VIAL IVP SCH ×2 (08:39→16:47)
[2017-06-27] MEDS: Chlorhexidine Rinse 15 ML MOUTHWASH MM SCH ×2 (08:39→19:59)
[2017-06-27] MEDS: Nystatin POWDER 30 GM BOTTLE TP SCH ×2 (08:42→20:00)
[2017-06-27] MEDS: Nystatin OINT 15 GM TUBE TP SCH ×4 (08:42→19:59)
--- NOTE | 2017-06-27 09:33 | Nephrology Progress Note ---
Date of Encounter: 06/27/17 Time of Encounter: 08:15 - Assessment and Plan (1) BLANCA (acute kidney injury) Current Visit: Yes Status: Acute Nonoliguric BLANCA that appears stable and responsive to diuretics. I recommend continuing diuretics to help manage her volume status. No need for ASSOCIATE ACCOUNT DIRECTOR today (Wednesday). Please keep the HD catheter another few days while monitoring her renal function with diuretics back on board. To help with the anasarca, if she cannot reach a net negative state, then could up the lasix to a Lasix gtt at some point, but appears fine today. Meanwhile continue to follow a renal protective / supportive strategy. Avoid IV contrast, if able. Strict I/Os, daily weights. Avoid other nephrotoxin exposures. Thank you. Will round on her this weekend. (2) Acute and chronic respiratory failure Current Visit: Yes Status: Acute As per primary. S/p trach. Qualifiers: Respiratory failure complication: hypoxia and hypercapnia Qualified Code(s) : J96.21 - Acute and chronic respiratory failure with hypoxia; J96.22 - Acute and chronic respiratory failure with hypercapnia (3) Cor pulmonale Current Visit: Yes Status: Chronic Diuretics to focus on improving her volume status. (4) Edema Current Visit: Yes Status: Chronic See above. 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 (6) Anasarca Current Visit: Yes Status: Acute See above Subjective Principal diagnosis: Respiratory insufficiency Interval history: Pt was seen/examined while in the ICU. She remains intubated: thus limiting subjective history. I discussed her vitals, labs, I/Os with the BEND SORTER. No acute events overnight. Objective - Vital Signs Vital signs: Vital Signs Temp Pulse Resp BP Pulse Ox 06/27/17 09:00 107 24 98/72 89 06/27/17 08:03 98.3 F 06/27/17 08:00 102 18 105/63 91 06/27/17 07:59 18 94 06/27/17 07:00 92 20 106/64 93 06/27/17 06:00 98 18 103/59 94 06/27/17 05:55 18 104/58 94 06/27/17 05:00 98 18 104/58 93 06/27/17 04:54 98.6 F 06/27/17 04:00 96 18 109/69 94 06/27/17 03:53 18 114/68 94 06/27/17 03:25 94 18 112/71 95 06/27/17 02:00 95 18 109/64 93 06/27/17 01:45 18 107/65 94 06/27/17 01:00 95 18 107/65 94 06/27/17 00:06 91 18 98/60 94 06/27/17 00:01 98.8 F 06/26/17 23:35 94 18 87/56 95 06/26/17 22:00 97 18 91/61 96 06/26/17 21:45 18 90/56 94 06/26/17 21:00 97 18 88/51 94 06/26/17 20:30 99.2 F 98 18 108/65 93 06/26/17 19:49 18 104/62 94 06/26/17 19:25 93 18 104/62 93 06/26/17 18:00 92 18 89/59 93 06/26/17 17:00 88 18 90/57 93 06/26/17 16:00 90 18 95/59 93 06/26/17 15:41 18 94 06/26/17 15:00 99.1 F 92 18 96/64 95 06/26/17 14:00 95 18 96/57 95 06/26/17 13:15 18 110/74 94 06/26/17 13:00 114 18 110/74 97 06/26/17 12:00 98.3 F 91 18 87/51 95 06/26/17 11:14 21 73/45 96 06/26/17 11:00 90 18 103/63 96 06/26/17 10:06 92 18 79/53 94 06/26/17 09:33 18 82/49 95 Intake and Output 06/26/17 06/27/17 06/27/17 23:59 07:59 15:59 Intake Total 532 / 532 450 / 450 404 / 404 Output Total 950 / 950 1400 / 1400 500 / 500 Balance -418 / -418 -950 / -950 -96 / -96 Intake: IV Fluids 532 / 532 450 / 450 404 / 404 PRECEDEX 400 mcg In 100 100 / 100 200 / 200 100 / 100 ml @ 0.3 MCG/KG/HR 10.358 mls/hr IVC .Q9H40M [facility] Rx#:[id number] FentaNYL (PF) 3,000 MCG 250 / 250 0 / 0 In 0.9 % Sodium Chloride 240 ML @ 100 MCG/HR 10 mls/hr IVC CONT [facility] Rx#: [id number] Versed 50 MG In 0.9 % 45 / 45 Sodium Chloride 90 ML @ 2 MG/HR 4 mls/hr IVC CONT [facility] Rx#:[id number] Primacor Premix 20 MG/100 100 / 100 ML 20 mg In 100 ml @ 0. 25 MCG/KG/MIN 10.253 mls/ hr IVC CONT [facility] Rx#: [id number] Levophed 4 MG In Dextrose 287 / 287 5% 250 ML @ 5 MCG/MIN 18 .75 mls/hr IVC CONT [facility] Rx#:[id number] Magnesium Sulfate 2 GM In 104 / 104 Dextrose 5% 100 ML @ 50 mls/hr IVPB Q6H PRN Rx#: [id number] Potassium Chloride 20 mEq 200 / 200 /100 mL 40 meq In 200 ml @ 100 mls/hr IVPB Q1H PRN Rx#:[id number] Oral 0 / 0 0 / 0 Tube Feeding 0 / 0 0 / 0 Free Water 0 / 0 0 / 0 Output: Catheter 950 / 950 1400 / 1400 500 / 500 Other: # Bowel Movements 0 0 Weight 134.762 kg Blood Glucose* 172 153 172 Patient Weight 06/27/17 23:59 Weight 134.762 kg - General Appearance General appearance: Present: obese, chronically ill, intubated, fatigue, frail, anxious EENT: Present: mucous membranes moist Neck: Present: supple Respiratory: Present: course breath sounds Cardiology: Present: edema (anasarca from feet to hands), normal S1, normal S2 Dialysis Vascular Access: Venous Catheter (Rt IJ temporary HD catheter with dressing that is C/D/I) Gastrointestinal: Present: normoactive bowel sounds, no tenderness Integumentary: Present: warm and dry Neurologic: Present: no focal deficit, no asterixis Musculoskeletal: Present: no cyanosis, no clubbing Psychiatric: Present: cooperative - Lab 06/27/17 03:33 06/27/17 03:33 Most recent lab results ABG pH 7.35 pH Units (7.32-7.45) 06/26/17 05:45 ABG pCO2 61 mmHg (35-45) H 06/26/17 05:45 ABG pO2 78 mmHg (85-104) L 06/26/17 05:45 ABG HCO3 33.7 mEQ/L (21-27) H 06/26/17 05:45 ABG O2 Saturation 95 % (95-98) 06/26/17 05:45 Calcium 8.9 mg/dL (8.6-10.8) 06/27/17 03:33 Phosphorus 4.7 mg/dL (2.3-4.7) 06/27/17 03:33 Magnesium 1.6 mg/dL (1.6-2.6) 06/27/17 03:33 Urine Creatinine 88 mg/dL 06/17/17 07:15 Urine Sodium 27.0 mEq/L 06/17/17 07:15 - VTE Documentation of Mechanical Device: Intermittent pneumatic compression device Consult Discharge Plan - Plan Referrals: Mi Warren, NETWORK SUPPORT ENGINEER [Advanced Practice Nurse] - (computers are down call back later )
[2017-06-27] MEDS: Norepinephrine 4 MG in D5% in Water 250 ML IVC SCH ×2 (10:49→19:22)
[2017-06-27] MEDS: Docusate Oral Soln 100 MG/10 ML UDC PO SCH ×2 (11:15→19:59)
--- NOTE | 2017-06-27 12:34 | ENT - Progress Note ---
Date of Encounter: 06/27/17 Time of Encounter: 12:32 - Assessment and Plan (1) Chronic respiratory failure Current Visit: Yes Status: Chronic The patient appears stable s/p Tracheotomy Wednesday this week. She remains on the ventilator. Discussed with her RN today recommendation to postpone trach change to during the week possibly in the OR. Will sign this out tonight to Dr. Thomas. Qualifiers: Respiratory failure complication: hypoxia and hypercapnia Qualified Code(s) : J96.11 - Chronic respiratory failure with hypoxia; J96.12 - Chronic respiratory failure with hypercapnia Subjective Patient reports: no new complaints Objective Initial Vital Signs Resp BP Pulse Ox 24 85/62 94 05/29/17 06:40 05/29/17 06:40 05/29/17 06:40 - Neck other (trach site- dry clean and intact) - Labs 06/27/17 03:33 06/27/17 03:33 Diabetes panel 06/27/17 Range/Units 03:33 Sodium 133 L (136-145) mEq/L Potassium 3.8 (3.5-4.5) mEq/L Chloride 93 L (98-109) mEq/L Carbon Dioxide 31 H (19-29) mEq/L BUN 52 H (7-20) mg/dL Creatinine 2.11 H (0.57-1.11) mg/dL Glucose 176 H (70-99) mg/dL Calcium 8.9 (8.6-10.8) mg/dL Calcium panel 06/27/17 Range/Units 03:33 Calcium 8.9 (8.6-10.8) mg/dL Phosphorus 4.7 (2.3-4.7) mg/dL Pituitary panel 06/27/17 Range/Units 03:33 Sodium 133 L (136-145) mEq/L Potassium 3.8 (3.5-4.5) mEq/L Chloride 93 L (98-109) mEq/L Carbon Dioxide 31 H (19-29) mEq/L BUN 52 H (7-20) mg/dL Creatinine 2.11 H (0.57-1.11) mg/dL Glucose 176 H (70-99) mg/dL Calcium 8.9 (8.6-10.8) mg/dL Adrenal panel 06/27/17 Range/Units 03:33 Sodium 133 L (136-145) mEq/L Potassium 3.8 (3.5-4.5) mEq/L Chloride 93 L (98-109) mEq/L Carbon Dioxide 31 H (19-29) mEq/L BUN 52 H (7-20) mg/dL Creatinine 2.11 H (0.57-1.11) mg/dL Glucose 176 H (70-99) mg/dL Calcium 8.9 (8.6-10.8) mg/dL - VTE Documentation of Mechanical Device: Intermittent pneumatic compression device Consult Discharge Plan - Plan Referrals: Mi Warren, PAYMENT MANAGER [Advanced Practice Nurse] - (computers are down call back later )
[2017-06-27] MEDS: Piperacillin/Tazobactam 3.375 GM in D5% in Water (Mini-Bag+) 100 ML IVPB SCH (17:50)
[2017-06-27] MEDS: MILRINONE 20 MG/100 ML IVC SCH (18:17)
[2017-06-28] MEDS: Insulin LISPRO 300 UNITS/3 ML VIAL SQ SCH ×6 (00:14→21:13)
[2017-06-28] MEDS: Lacri-Lube 3.5 GM TUBE BOTH EYES SCH ×6 (00:14→21:13)
[2017-06-28] MEDS: Dexmedetomidine HCl 400 MCG/100 ML MLS IVC SCH ×6 (01:35→20:26)
[2017-06-28] MEDS: Norepinephrine 4 MG in D5% in Water 250 ML IVC SCH ×3 (03:56→15:34)
[2017-06-28] MEDS: MILRINONE 20 MG/100 ML IVC SCH ×2 (03:57→14:46)
[2017-06-28] MEDS: *HR* HYDROmorphone (PF) 1 MG/ML SYRINGE IVP PRN ×5 (04:14→21:13)
[2017-06-28 04:29] LABS: Basophils % 0.3 %; Eosinophils # 0.1 K/mcL (0.0-0.6); Eosinophils % 0.9 %; Hematocrit 26.9 % (35.3-44.9); Hemoglobin 8.2 g/dL (11.5-15.4); Immature Granulocytes % 1.6 % (0-4); Lymphocytes # 0.9 K/mcL (0.6-4.6); Lymphocytes % 8.1 %; Mean Corpuscular HGB Conc 30.5 g/dL (31.6-35.5); Mean Corpuscular Hemoglobin 28.3 pg (28.0-33.3); Mean Corpuscular Volume 92.8 fL (83.0-100.0); Mean Platelet Volume 10.6 fL (9.4-12.4); Monocytes # 0.6 K/mcL (0.0-1.3); Monocytes % 5.5 %; Neutrophils # 9.1 K/mcL (1.6-8.9); Platelet Count 399 K/mcL (140-400); Red Cell Distribution Width 17.1 % (11.5-14.5); Segmented Neutrophils % 83.6 %
[2017-06-28 04:45] LABS: Calcium 9.1 mg/dL (8.6-10.8); Phosphorous 5.1 mg/dL (2.3-4.7); Potassium 3.7 mEq/L (3.5-4.5)
[2017-06-28] MEDS: FentaNYL (PF) 3,000 MCG in 0.9 % Sodium Chloride 240 ML IVC SCH ×2 (05:05→10:39)
[2017-06-28] MEDS: Piperacillin/Tazobactam 3.375 GM in D5% in Water (Mini-Bag+) 100 ML IVPB SCH ×2 (06:09→17:00)
[2017-06-28] MEDS: *HR* Heparin 5,000 UNIT/ML VIAL SQ SCH ×2 (06:09→15:34)
[2017-06-28] MEDS: Potassium Chloride 40 MEQ/200 ML BAG IVPB PRN (06:25)
[2017-06-28] MEDS: Chlorhexidine Rinse 15 ML MOUTHWASH MM SCH ×2 (07:41→22:14)
[2017-06-28] MEDS: Docusate Oral Soln 100 MG/10 ML UDC PO SCH ×2 (07:41→22:15)
[2017-06-28] MEDS: Lactulose Oral Soln 20 GM/30 ML UDC PO PRN (07:41)
[2017-06-28] MEDS: Furosemide 40 MG/4 ML VIAL IVP SCH ×2 (07:42→15:14)
[2017-06-28] MEDS: Pantoprazole 40 MG VIAL IVP SCH (07:42)
[2017-06-28] MEDS: Nystatin OINT 15 GM TUBE TP SCH ×4 (07:43→22:15)
[2017-06-28] MEDS: Nystatin POWDER 30 GM BOTTLE TP SCH ×2 (07:43→22:15)
[2017-06-28] MEDS: Budesonide/Formoterol 160/4.5 MDI IH SCH ×2 (08:06→20:06)
--- NOTE | 2017-06-28 08:13 | Pulmonology Progress Note ---
<Jacek Avitia - Last Filed: 06/28/17 13:38> Date of Encounter: 06/28/17 Time of Encounter: 07:30 Assessment and Plan (1) Acute and chronic respiratory failure Current Visit: Yes Status: Acute Patient currently on trach and ventilator. She is currently tolerating ventilator well. Continue trach ventilation. Consulted ENT to discuss trach exchange - size 5 inner cannula ordered, Dr. Thomas will tentatively plan to exchange trach tomorrow in OR if trach available at that time. Planning on transferring the patient to long-term care facility. I discussed sending the patient to [facility] with both the patient's son and niece. They were agreeable with this plan. They also discussed this with the elementary school social worker secondary school registrar. The park is currently underway eventually transferred the patient to [facility]. Heparin subcutaneous for DVT prophylaxis. Continue enteral feedings. Seroquel for agitation. Continue Zosyn for cholelithiasis. Protonix for GI prophylaxis Qualifiers: Respiratory failure complication: hypoxia and hypercapnia Qualified Code(s) : J96.21 - Acute and chronic respiratory failure with hypoxia; J96.22 - Acute and chronic respiratory failure with hypercapnia (2) Hypotension Current Visit: Yes Status: Acute Blood pressure 80s over 50s. Patient currently on Levophed, cannot be weaned down at this time due to blood pressure. Milrinone has been turned off. We will draw a cortisol levels and thyroid levels to assess for any other factors that could be contributing to hypotension. Qualifiers: Hypotension type: unspecified hypotension type Qualified Code(s): I95.9 - Hypotension, unspecified (3) Chronic systolic (congestive) heart failure Current Visit: Yes Status: Chronic (4) Cor pulmonale Current Visit: Yes Status: Chronic (5) Moderate to severe pulmonary hypertension Current Visit: Yes Status: Chronic (6) Morbid obesity with BMI of 50.0-59.9, adult Current Visit: Yes Status: Chronic (7) SMITA treated with BiPAP Current Visit: Yes Status: Chronic (8) Acute on chronic renal failure Current Visit: Yes Status: Acute Nephrology following. Creatinine and GFR continuing to improve. I spoke with sr. manager, Dr. Rico, this morning. He was happy with the patient's progression. He wants to continue IV Lasix 80 mg twice a day. Patient has not required dialysis recently. He is okay with the dialysis line being removed either tomorrow or Wednesday. Continue IV Lasix Monitor I's and O's Qualifiers: Acute renal failure type: unspecified Chronic kidney disease stage: stage 3 (moderate) Qualified Code(s): N17.9 - Acute kidney failure, unspecified; N18.3 - Chronic kidney disease, stage 3 (moderate) Subjective Principal diagnosis: Respiratory insufficiency Interval history: No major events overnight. Milrinone was turned off early this morning. Levophed is in progress of being titrated down. Patient is able to follow commands, mouth answers questions. She currently denies any chest pain, shortness of breath, nausea, vomiting, abdominal pain. She is tolerating tube feeds well via [place]. Objective PUL Vital signs: Last Vital Signs Temp 98.1 F 06/28/17 07:20 Pulse 102 06/28/17 07:00 Resp 24 06/28/17 07:00 BP 87/61 06/28/17 07:00 Pulse Ox 93 06/28/17 07:00 General appearance: no acute distress, alert, other (Patient is able to follow commands, mouth answers questions. ) Eyes: nonicteric ENT: oropharynx moist Neck: supple Effort: other (Treatment dependent; mild amount of secretions present in trach) Auscultation: bilateral: clear Cardiovascular: regular rate and rhythm Gastrointestinal: normoactive bowel sounds, soft, non-tender, non-distended Integumentary: normal Extremities: no cyanosis, no clubbing, pink and warm, other (Pitting edema present bilateral lower extremities) Musculoskeletal: no deformities Gait: other (Unable to assess due to patient being bedbound) normal mental status, non-focal exam, pupils equal and round mood appropriate, affect normal Ventilator Settings Ventilator Settings: Ventilator Settings, Last 8 Hours Ventilator Mode VC+ Ventilator Mode VC+ Ventilator Mode VC+ Ventilator Mode VC+ Ventilator Mode VC+ Ventilator Tidal Volume 400 Setting Ventilator Tidal Volume 400 Setting Ventilator Tidal Volume 400 Setting Ventilator Tidal Volume 400 Setting Ventilator Tidal Volume 400 Setting Ventilator Respiratory Rate 14 Setting Ventilator Respiratory Rate 14 Setting Ventilator Respiratory Rate 14 Setting Ventilator Respiratory Rate 14 Setting Ventilator Respiratory Rate 14 Setting Actual Respiratory Rate 18 Actual Respiratory Rate 18 Actual Respiratory Rate 18 Actual Respiratory Rate 17 Actual Respiratory Rate 17 Positive End Expiratory 8 Pressure Positive End Expiratory 8 Pressure Positive End Expiratory 8 Pressure Positive End Expiratory 8 Pressure Positive End Expiratory 8 Pressure Peak Inspiratory Airway 25 Pressure Peak Inspiratory Airway 25 Pressure Peak Inspiratory Airway 29 Pressure Peak Inspiratory Airway 28 Pressure Peak Inspiratory Airway 24 Pressure Results - Laboratory Findings CBC and BMP: 06/28/17 04:15 06/28/17 04:15 ABG ABG pH 7.35 pH Units (7.32-7.45) 06/26/17 05:45 ABG pCO2 61 mmHg (35-45) H 06/26/17 05:45 ABG pO2 78 mmHg (85-104) L 06/26/17 05:45 ABG O2 Saturation 95 % (95-98) 06/26/17 05:45 PT/INR, D-dimer PT 14.6 Seconds (9.4-12.1) H 06/22/17 03:30 Abnormal lab findings: Abnormal lab results RBC 2.90 M/mcL (3.82-4.97) L 06/28/17 04:15 Hgb 8.2 g/dL (11.5-15.4) L 06/28/17 04:15 Hct 26.9 % (35.3-44.9) L 06/28/17 04:15 MCHC 30.5 g/dL (31.6-35.5) L 06/28/17 04:15 RDW 17.1 % (11.5-14.5) H 06/28/17 04:15 Neutrophils # 9.1 K/mcL (1.6-8.9) H 06/28/17 04:15 Nucleated RBCs/100 WBC 0.3 /100 WBC (0) H 06/03/17 04:00 Reactive Lymphocytes Present (Not Present) A 06/01/17 03:30 Large Platelets Present (Not Present) A 06/17/17 03:00 Immature Plt Fraction 10.6 % (1.1-6.1) H 06/06/17 04:40 Polychromasia 1+ (Not Present) A 06/01/17 03:30 Hypochromasia Present (Not Present) A 06/17/17 03:00 Basophilic Stippling 1+ (Not Present) A 06/01/17 03:30 Anisocytosis 1+ (Not Present) A 06/23/17 07:57 Microcytosis Present (Not Present) A 06/17/17 03:00 Macrocytosis Present (Not Present) A 06/17/17 03:00 PT 14.6 Seconds (9.4-12.1) H 06/22/17 03:30 ABG pCO2 61 mmHg (35-45) H 06/26/17 05:45 ABG pO2 78 mmHg (85-104) L 06/26/17 05:45 ABG HCO3 33.7 mEQ/L (21-27) H 06/26/17 05:45 ABG Total CO2 35.6 mEq/L (20-26) H 06/26/17 05:45 ABG Base Excess 6.7 mEq/L (-2.0 to 3.0) H 06/26/17 05:45 VBG pH 7.50 pH Units (7.32-7.42) H 05/31/17 21:46 VBG pO2 202 mmHg (25-40) H 05/31/17 21:46 VBG HCO3 36.7 mEq/L (21-27) H 05/31/17 21:46 Mixed VBG pH 7.29 (7.34-7.36) L 05/31/17 21:46 Mixed VBG pCO2 89 mmHg (44-46) H 05/31/17 21:46 Mixed VBG pO2 73 mmHg (35-45) H 05/31/17 21:46 Mixed VBG Oxyhemoglobin 93.0 % (60-80) H 05/31/17 21:46 Sodium 133 mEq/L (136-145) L 06/28/17 04:15 Chloride 92 mEq/L (98-109) L 06/28/17 04:15 Carbon Dioxide 34 mEq/L (19-29) H 06/28/17 04:15 BUN 52 mg/dL (7-20) H 06/28/17 04:15 Creatinine 2.03 mg/dL (0.57-1.11) H 06/28/17 04:15 Est GFR ( Amer) 32 (> 60) L 06/28/17 04:15 Est GFR (Non-Af Amer) 27 (> 60) L 06/28/17 04:15 Glucose 176 mg/dL (70-99) H 06/28/17 04:15 POC Glucose 140 (58-89) H 06/28/17 07:18 Phosphorus 5.1 mg/dL (2.3-4.7) H 06/28/17 04:15 Direct Bilirubin 0.6 mg/dL (0.0-0.5) H 06/26/17 04:50 Alkaline Phosphatase 169 Units/L (38-126) H 06/26/17 04:50 Creatine Kinase 200 Units/L (29-168) H 06/01/17 03:06 Troponin I 0.36 ng/mL (0-0.03) H* 05/29/17 15:53 B-Natriuretic Peptide 254 pg/mL (0-100) H 06/28/17 04:15 Serum Total Protein 5.9 g/dL (6.0-8.3) L 06/26/17 04:50 Albumin 1.7 g/dL (3.5-5.0) L 06/26/17 04:50 Globulin 4.2 g/dL (2.4-3.5) H 06/26/17 04:50 Albumin/Globulin Ratio 0.4 (1.1-2.2) L 06/26/17 04:50 Lipase 112 Units/L (8-78) H 06/22/17 12:35 Urine Clarity Hazy (Clear) A 05/29/17 18:15 Ur Specific [place] 1.026 (1.010-1.025) H 05/29/17 18:15 Urine Protein 30 mg/dL (Neg-Trace) H 05/29/17 18:15 Urine Ketones Trace mg/dL (Negative) H 05/29/17 18:15 Urine Bilirubin Small (Negative) H 05/29/17 18:15 Urine Microscopic WBC 15-30 per hpf (0-3) H 05/29/17 18:15 Ur Squamous Epith Cells Many per lpf (None-Few) H 05/29/17 18:15 Amorphous Sediment Moderate (Few) H 05/29/17 18:15 Urine Bacteria Moderate per hpf (None-Few) H 05/29/17 18:15 Hyaline Casts Moderate per lpf (None-Few) H 05/29/17 18:15 Ur Culture Indicated? YES (NO) A 05/29/17 18:15 - Clinical Findings Intake & Output: Intake & Output 06/27/17 06/28/17 06/28/17 23:59 07:59 15:59 Intake Total 597 / 597 629 / 629 Output Total 700 / 700 1400 / 1400 Balance -103 / -103 -771 / -771 Weight 129.319 kg - VTE Documentation of Mechanical Device: Intermittent pneumatic compression device Consult Discharge Plan - Plan Referrals: Mi Warren, INSURANCE CLAIMS SPECIALIST [Advanced Practice Nurse] - (computers are down call back later ) <KatyastephanRebecca campos Sarah - Last Filed: 06/28/17 17:14> Date of Encounter: 06/28/17 Objective PUL Vital signs: Last Vital Signs Temp 98.6 F 06/28/17 15:50 Pulse 89 06/28/17 16:00 Resp 17 06/28/17 16:00 BP 90/55 06/28/17 16:00 Pulse Ox 96 06/28/17 16:00 Ventilator Settings Ventilator Settings: Ventilator Settings, Last 8 Hours Ventilator Mode VC+ Ventilator Mode VC+ Ventilator Mode VC+ Ventilator Mode VC+ Ventilator Mode VC+ Ventilator Mode VC+ Ventilator Mode VC+ Ventilator Tidal Volume 400 Setting Ventilator Tidal Volume 400 Setting Ventilator Tidal Volume 400 Setting Ventilator Tidal Volume 400 Setting Ventilator Tidal Volume 400 Setting Ventilator Tidal Volume 400 Setting Ventilator Tidal Volume 400 Setting Ventilator Respiratory Rate 14 Setting Ventilator Respiratory Rate 14 Setting Ventilator Respiratory Rate 14 Setting Ventilator Respiratory Rate 14 Setting Ventilator Respiratory Rate 14 Setting Ventilator Respiratory Rate 14 Setting Ventilator Respiratory Rate 14 Setting Actual Respiratory Rate 17 Actual Respiratory Rate 17 Actual Respiratory Rate 17 Actual Respiratory Rate 17 Actual Respiratory Rate 22 Actual Respiratory Rate 17 Actual Respiratory Rate 17 Positive End Expiratory 5 Pressure Positive End Expiratory 5 Pressure Positive End Expiratory 5 Pressure Positive End Expiratory 5 Pressure Positive End Expiratory 5 Pressure Positive End Expiratory 5 Pressure Positive End Expiratory 5 Pressure Peak Inspiratory Airway 27 Pressure Peak Inspiratory Airway 29 Pressure Peak Inspiratory Airway 27 Pressure Peak Inspiratory Airway 26 Pressure Peak Inspiratory Airway 28 Pressure Peak Inspiratory Airway 11 Pressure Peak Inspiratory Airway 21 Pressure Results - Laboratory Findings CBC and BMP: 06/28/17 04:15 06/28/17 04:15 ABG ABG pH 7.35 pH Units (7.32-7.45) 06/28/17 08:26 ABG pCO2 66 mmHg (35-45) H 06/28/17 08:26 ABG pO2 67 mmHg (85-104) L 06/28/17 08:26 ABG O2 Saturation 92 % (95-98) L 06/28/17 08:26 PT/INR, D-dimer PT 14.6 Seconds (9.4-12.1) H 06/22/17 03:30 Abnormal lab findings: Abnormal lab results RBC 2.90 M/mcL (3.82-4.97) L 06/28/17 04:15 Hgb 8.2 g/dL (11.5-15.4) L 06/28/17 04:15 Hct 26.9 % (35.3-44.9) L 06/28/17 04:15 MCHC 30.5 g/dL (31.6-35.5) L 06/28/17 04:15 RDW 17.1 % (11.5-14.5) H 06/28/17 04:15 Neutrophils # 9.1 K/mcL (1.6-8.9) H 06/28/17 04:15 Nucleated RBCs/100 WBC 0.3 /100 WBC (0) H 06/03/17 04:00 Reactive Lymphocytes Present (Not Present) A 06/01/17 03:30 Large Platelets Present (Not Present) A 06/17/17 03:00 Immature Plt Fraction 10.6 % (1.1-6.1) H 06/06/17 04:40 Polychromasia 1+ (Not Present) A 06/01/17 03:30 Hypochromasia Present (Not Present) A 06/17/17 03:00 Basophilic Stippling 1+ (Not Present) A 06/01/17 03:30 Anisocytosis 1+ (Not Present) A 06/23/17 07:57 Microcytosis Present (Not Present) A 06/17/17 03:00 Macrocytosis Present (Not Present) A 06/17/17 03:00 PT 14.6 Seconds (9.4-12.1) H 06/22/17 03:30 ABG pCO2 66 mmHg (35-45) H 06/28/17 08:26 ABG pO2 67 mmHg (85-104) L 06/28/17 08:26 ABG HCO3 36.4 mEQ/L (21-27) H 06/28/17 08:26 ABG Total CO2 38.4 mEq/L (20-26) H 06/28/17 08:26 ABG O2 Saturation 92 % (95-98) L 06/28/17 08:26 ABG Base Excess 9.1 mEq/L (-2.0 to 3.0) H 06/28/17 08:26 VBG pH 7.50 pH Units (7.32-7.42) H 05/31/17 21:46 VBG pO2 202 mmHg (25-40) H 05/31/17 21:46 VBG HCO3 36.7 mEq/L (21-27) H 05/31/17 21:46 Mixed VBG pH 7.29 (7.34-7.36) L 05/31/17 21:46 Mixed VBG pCO2 89 mmHg (44-46) H 05/31/17 21:46 Mixed VBG pO2 73 mmHg (35-45) H 05/31/17 21:46 Mixed VBG Oxyhemoglobin 93.0 % (60-80) H 05/31/17 21:46 Sodium 133 mEq/L (136-145) L 06/28/17 04:15 Chloride 92 mEq/L (98-109) L 06/28/17 04:15 Carbon Dioxide 34 mEq/L (19-29) H 06/28/17 04:15 BUN 52 mg/dL (7-20) H 06/28/17 04:15 Creatinine 2.03 mg/dL (0.57-1.11) H 06/28/17 04:15 Est GFR ( Amer) 32 (> 60) L 06/28/17 04:15 Est GFR (Non-Af Amer) 27 (> 60) L 06/28/17 04:15 Glucose 176 mg/dL (70-99) H 06/28/17 04:15 POC Glucose 171 (58-89) H 06/28/17 15:26 Phosphorus 5.1 mg/dL (2.3-4.7) H 06/28/17 04:15 Direct Bilirubin 0.6 mg/dL (0.0-0.5) H 06/26/17 04:50 Alkaline Phosphatase 169 Units/L (38-126) H 06/26/17 04:50 Creatine Kinase 200 Units/L (29-168) H 06/01/17 03:06 Troponin I 0.36 ng/mL (0-0.03) H* 05/29/17 15:53 B-Natriuretic Peptide 254 pg/mL (0-100) H 06/28/17 04:15 Serum Total Protein 5.9 g/dL (6.0-8.3) L 06/26/17 04:50 Albumin 1.7 g/dL (3.5-5.0) L 06/26/17 04:50 Globulin 4.2 g/dL (2.4-3.5) H 06/26/17 04:50 Albumin/Globulin Ratio 0.4 (1.1-2.2) L 06/26/17 04:50 Lipase 112 Units/L (8-78) H 06/22/17 12:35 Free T3 1.01 pg/mL (1.71-3.71) L 06/28/17 12:35 Urine Clarity Hazy (Clear) A 05/29/17 18:15 Ur Specific [place] 1.026 (1.010-1.025) H 05/29/17 18:15 Urine Protein 30 mg/dL (Neg-Trace) H 05/29/17 18:15 Urine Ketones Trace mg/dL (Negative) H 05/29/17 18:15 Urine Bilirubin Small (Negative) H 05/29/17 18:15 Urine Microscopic WBC 15-30 per hpf (0-3) H 05/29/17 18:15 Ur Squamous Epith Cells Many per lpf (None-Few) H 05/29/17 18:15 Amorphous Sediment Moderate (Few) H 05/29/17 18:15 Urine Bacteria Moderate per hpf (None-Few) H 05/29/17 18:15 Hyaline Casts Moderate per lpf (None-Few) H 05/29/17 18:15 Ur Culture Indicated? YES (NO) A 05/29/17 18:15 - Clinical Findings Intake & Output: Intake & Output 06/28/17 06/28/17 06/28/17 07:59 15:59 23:59 Intake Total 629 / 629 1717 / 1717 0 / 0 Output Total 1400 / 1400 1400 / 1400 Balance -771 / -771 317 / 317 0 / 0 Weight 129.319 kg - Attending Attestation I examined this patient and my medical decision-making was reviewed with the Resident Physician. I agree with the documented findings, disposition and treatment plan as described except to the extent set forth below. Patient seen and examined. Labs, radiology, chart personally reviewed. Agree with resident's history and physical, assessment, plan with following comments: SODA FLAKER: Patient follows commands, Pulmonary: Acceptable oxygenation and ventilation and lower her PEEP to 5. I feel patient needs to be managed in LTAC and elementary school social worker to arrange that for her. ENT for possible revision of her trach. Cardiovascular: Should remain in shock and wean off milrinone. GI: Nutrition per dietary and GI prophylaxis per routine Heme: DVT prophylaxis per routine ID: Continue antibiotics and plan to de-escalation Renal; urine out put and renal funtion reviewed Endorcine: blood glucose is monitored Lines: all lines checked and no evidence of infections Skin: skin care to prevent pressure ulcers per nursing routine care Overall prognosis is poor and there is even possibility patient could be transferred to another facility for further management or even a second opinion.
[2017-06-28 08:34] LABS: ABG Base Excess 9.1 mEq/L (-2.0 to 3.0); ABG HCO3 36.4 mEQ/L (21-27); ABG Oxygen Saturation 92 % (95-98); ABG PCO2 66 mmHg (35-45); ABG PH 7.35 pH Units (7.32-7.45); ABG PO2 67 mmHg (85-104); ABG TCO2 38.4 mEq/L (20-26)
[2017-06-28 08:36] LABS: Blood Gas FiO2 60 %
--- NOTE | 2017-06-28 09:17 | Nephrology Progress Note ---
Date of Encounter: 06/28/17 Time of Encounter: 08:20 - Assessment and Plan (1) BLANCA (acute kidney injury) Current Visit: Yes Status: Acute Nonoliguric BLANCA that appears stable and responsive to diuretics. I recommend continuing diuretics to help manage her volume status. No need for JACQUARD CARD LACER today (Wednesday). Okay to have the temporry HD catheter removed perhaps tomorrow or by midweek since she has not needed it for JACQUARD CARD LACER. Anasarca: the lasix 80mg IV bid is helped her achieve a net negative state yesterday. Meanwhile continue to follow a renal protective / supportive strategy. Avoid IV contrast, if able. Strict I/Os, daily weights. Avoid other nephrotoxin exposures. Thank you. Will round on her this weekend. (2) Acute and chronic respiratory failure Current Visit: Yes Status: Acute As per primary. S/p trach. Qualifiers: Respiratory failure complication: hypoxia and hypercapnia Qualified Code(s) : J96.21 - Acute and chronic respiratory failure with hypoxia; J96.22 - Acute and chronic respiratory failure with hypercapnia (3) Cor pulmonale Current Visit: Yes Status: Chronic Diuretics to focus on improving her volume status. (4) Edema Current Visit: Yes Status: Chronic See above. 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 (6) Anasarca Current Visit: Yes Status: Acute See above Subjective Principal diagnosis: Respiratory insufficiency Interval history: Pt was seen/examined while in the ICU. She remains intubated: thus limiting subjective history. I discussed her vitals, labs, I/Os with the ORE BRIDGE OPERATOR. No acute events overnight. Objective - Vital Signs Vital signs: Vital Signs Temp Pulse Resp BP Pulse Ox 06/28/17 09:00 104 24 93/52 93 06/28/17 08:00 88 24 83/52 89 06/28/17 07:20 98.1 F 06/28/17 07:00 102 24 87/61 93 06/28/17 06:00 86 19 87/58 96 06/28/17 05:03 17 95/56 95 06/28/17 05:00 88 13 95/56 95 06/28/17 04:14 98.1 F 06/28/17 04:00 98 16 97/64 90 06/28/17 03:24 15 96/58 97 06/28/17 03:00 98 15 101/61 94 06/28/17 02:00 97 20 96/64 91 06/28/17 01:05 17 96/55 96 06/28/17 01:00 91 16 93/57 97 06/28/17 00:00 98.4 F 92 17 93/56 96 06/27/17 23:42 16 98/61 96 06/27/17 23:00 88 16 92/59 96 06/27/17 22:00 94 18 88/63 90 06/27/17 21:27 18 94/40 95 06/27/17 21:00 101 18 94/40 93 06/27/17 20:00 93 15 105/62 94 06/27/17 19:58 17 112/64 96 06/27/17 19:53 98.3 F 06/27/17 19:00 89 18 113/65 96 06/27/17 18:30 21 93 06/27/17 18:00 94 21 100/54 93 06/27/17 17:00 102 17 98/53 94 06/27/17 16:03 16 92 06/27/17 16:00 92 20 85/69 93 06/27/17 15:26 98.0 F 06/27/17 15:00 88 16 100/60 96 06/27/17 14:00 94 17 94/55 95 06/27/17 13:48 17 94 06/27/17 13:00 91 15 111/63 95 06/27/17 12:03 98.6 F 06/27/17 12:00 112 06/27/17 11:40 20 94 06/27/17 11:00 99 19 99/51 94 06/27/17 10:00 116 20 107/69 92 06/27/17 09:36 22 93 Intake and Output 06/27/17 06/28/17 06/28/17 23:59 07:59 15:59 Intake Total 597 / 597 629 / 629 400 / 400 Output Total 700 / 700 1400 / 1400 Balance -103 / -103 -771 / -771 400 / 400 Intake: IV Fluids 500 / 500 550 / 550 300 / 300 PRECEDEX 400 mcg In 100 100 / 100 200 / 200 100 / 100 ml @ 0.3 MCG/KG/HR 10.358 mls/hr IVC .[id number] [facility] Rx#:[id number] FentaNYL (PF) 3,000 MCG 300 / 300 In 0.9 % Sodium Chloride 240 ML @ 100 MCG/HR 10 mls/hr IVC CONT [facility] Rx#: [id number] Primacor Premix 20 MG/100 100 / 100 ML 20 mg In 100 ml @ 0. 25 MCG/KG/MIN 10.253 mls/ hr IVC CONT [place] Rx#: [id number] Levophed 4 MG In Dextrose 250 / 250 5% 250 ML @ 5 MCG/MIN 18 .75 mls/hr IVC CONT [facility] Rx#:[id number] Zosyn 3.375 GM In 100 / 100 Dextrose 5% (Minibag+) 100 ML 100 ML @ 25 mls/hr IVPB Q12HR [facility] Rx#: [id number] Potassium Chloride 20 mEq 200 / 200 /100 mL 40 meq In 200 ml @ 100 mls/hr IVPB Q1H [facility] Rx#:[id number] Tube Feeding 97 / 97 79 / 79 Free Water Intake Amount 100 / 100 Output: Catheter 700 / 700 1400 / 1400 Other: Weight 129.319 kg Blood Glucose* 183 140 Patient Weight 06/28/17 23:59 Weight 129.319 kg - General Appearance Exam: General appearance: Present: obese, chronically ill, intubated, fatigue, frail, anxious EENT: Present: mucous membranes moist Neck: Present: supple Respiratory: Present: course breath sounds Cardiology: Present: edema (anasarca from feet to hands), normal S1, normal S2 Dialysis Vascular Access: Venous Catheter (Rt IJ temporary HD catheter with dressing that is C/D/I) Gastrointestinal: Present: normoactive bowel sounds, no tenderness Integumentary: Present: warm and dry Neurologic: Present: no focal deficit, no asterixis Musculoskeletal: Present: no cyanosis, no clubbing Psychiatric: Present: cooperative - Lab 06/28/17 04:15 06/28/17 04:15 Most recent lab results ABG pH 7.35 pH Units (7.32-7.45) 06/28/17 08:26 ABG pCO2 66 mmHg (35-45) H 06/28/17 08:26 ABG pO2 67 mmHg (85-104) L 06/28/17 08:26 ABG HCO3 36.4 mEQ/L (21-27) H 06/28/17 08:26 ABG O2 Saturation 92 % (95-98) L 06/28/17 08:26 Calcium 9.1 mg/dL (8.6-10.8) 06/28/17 04:15 Phosphorus 5.1 mg/dL (2.3-4.7) H 06/28/17 04:15 Magnesium 1.6 mg/dL (1.6-2.6) 06/27/17 03:33 Urine Creatinine 88 mg/dL 06/17/17 07:15 Urine Sodium 27.0 mEq/L 06/17/17 07:15 - VTE Documentation of Mechanical Device: Intermittent pneumatic compression device Consult Discharge Plan - Plan Referrals: Mi Warren, EVENT PLANNING MANAGER [Advanced Practice Nurse] - (computers are down call back later )
[2017-06-28 13:25] LABS: Thyroid Stimulating Hormone 4.575 mcIU/mL (0.350-4.840); Triiodothyronine (T3) Free 1.01 pg/mL (1.71-3.71)
[2017-06-29] MEDS: Dexmedetomidine HCl 400 MCG/100 ML MLS IVC SCH ×6 (00:27→20:51)
[2017-06-29] MEDS: FentaNYL (PF) 3,000 MCG in 0.9 % Sodium Chloride 240 ML IVC SCH ×3 (00:27→10:21)
[2017-06-29] MEDS: Lacri-Lube 3.5 GM TUBE BOTH EYES SCH ×6 (00:28→20:52)
[2017-06-29] MEDS: Insulin LISPRO 300 UNITS/3 ML VIAL SQ SCH ×6 (00:28→20:52)
[2017-06-29] MEDS: Norepinephrine 4 MG in D5% in Water 250 ML IVC SCH ×2 (00:28→15:36)
[2017-06-29] MEDS: *HR* HYDROmorphone (PF) 1 MG/ML SYRINGE IVP PRN ×4 (02:30→20:57)
[2017-06-29 04:09] LABS: ABG Oxygen Saturation 95 % (95-98); ABG PH 7.33 pH Units (7.32-7.45); ABG PO2 81 mmHg (85-104); ABG TCO2 40.2 mEq/L (20-26)
[2017-06-29 04:10] LABS: Blood Gas FiO2 60 %; Blood Gas PEEP 5 cm H2O; Blood Gas Respiration Rate 14; Blood Gas VT 400 cc
[2017-06-29 04:11] LABS: ABG PCO2 72 mmHg (35-45)
[2017-06-29 04:13] LABS: Basophils # 0.1 K/mcL (0.0-0.2); Basophils % 0.6 %; Eosinophils # 0.1 K/mcL (0.0-0.6); Eosinophils % 1.1 %; Hematocrit 28.8 % (35.3-44.9); Hemoglobin 8.6 g/dL (11.5-15.4); Immature Granulocytes % 0.8 % (0-4); Lymphocytes # 1.1 K/mcL (0.6-4.6); Lymphocytes % 10.2 %; Mean Corpuscular HGB Conc 29.9 g/dL (31.6-35.5); Mean Corpuscular Hemoglobin 28.2 pg (28.0-33.3); Mean Corpuscular Volume 94.4 fL (83.0-100.0); Mean Platelet Volume 10.9 fL (9.4-12.4); Monocytes # 0.5 K/mcL (0.0-1.3); Monocytes % 4.9 %; Neutrophils # 8.6 K/mcL (1.6-8.9); Platelet Count 434 K/mcL (140-400); Red Blood Count 3.05 M/mcL (3.82-4.97); Red Cell Distribution Width 17.1 % (11.5-14.5); Segmented Neutrophils % 82.4 %
[2017-06-29 04:30] LABS: Magnesium 1.5 mg/dL (1.6-2.6); Phosphorous 5.3 mg/dL (2.3-4.7)
[2017-06-29 04:31] LABS: Potassium 3.9 mEq/L (3.5-4.5)
[2017-06-29] MEDS: Piperacillin/Tazobactam 3.375 GM in D5% in Water (Mini-Bag+) 100 ML IVPB SCH ×2 (06:21→17:17)
[2017-06-29] MEDS: Magnesium Sulfate 2 GM in D5% in Water 100 ML IVPB PRN (06:21)
[2017-06-29] MEDS: *HR* Heparin 5,000 UNIT/ML VIAL SQ SCH ×2 (06:22→15:31)
[2017-06-29] MEDS: Potassium Chloride 40 MEQ/200 ML BAG IVPB PRN (06:22)
[2017-06-29] MEDS: Budesonide/Formoterol 160/4.5 MDI IH SCH ×2 (07:33→20:12)
--- NOTE | 2017-06-29 07:56 | Pulmonology Progress Note ---
<Jacek Avitia - Last Filed: 06/29/17 09:40> Date of Encounter: 06/29/17 Time of Encounter: 07:00 Assessment and Plan (1) Acute and chronic respiratory failure Current Visit: Yes Status: Acute Patient currently on trach and ventilator. She is currently tolerating ventilator well. Mild increase in CO2 today. FiO2 is being weaned, down to 50 % today. Continue trach ventilation. Consulted ENT to discuss trach exchange - I spoke with Dr. Thomas with ENT. Due to patient's status on vasopressors, she does not recommend changing out the trach piece at this time. She would recommend the trach be replaced in 2 weeks. This can be done here at [place], or if patient is in extended care facility, this could be consulted to ENT in [place]. Planning on transferring the patient to [facility] long-term care [facility] in [place], social media community manager working on this. I discussed sending the patient to [facility] with both the patient's son and niece. They were agreeable with this plan. They also discussed this with the social media community manager regional operations manager. Heparin subcutaneous for DVT prophylaxis. Continue enteral feedings. Seroquel for agitation. Start klonopin 2mg [id number] PRN, work on decreasing versed drip. Continue Zosyn for cholelithiasis. Protonix for GI prophylaxis Qualifiers: Respiratory failure complication: hypoxia and hypercapnia Qualified Code(s) : J96.21 - Acute and chronic respiratory failure with hypoxia; J96.22 - Acute and chronic respiratory failure with hypercapnia (2) Hypotension Current Visit: Yes Status: Acute Blood pressure 80s over 50s. Patient mentating well. Currently on Levophed 3mcg , cannot be weaned down at this time due to blood pressure. Milrinone has been turned off. Cortisol and THS, free T4 are WNL. Continue to attempt to wean levophed Qualifiers: Hypotension type: unspecified hypotension type Qualified Code(s): I95.9 - Hypotension, unspecified (3) Chronic systolic (congestive) heart failure Current Visit: Yes Status: Chronic IV lasix 80 BID (4) Cor pulmonale Current Visit: Yes Status: Chronic See above (5) Moderate to severe pulmonary hypertension Current Visit: Yes Status: Chronic See above (6) Morbid obesity with BMI of 50.0-59.9, adult Current Visit: Yes Status: Chronic (7) SMITA treated with BiPAP Current Visit: Yes Status: Chronic On trach ventillation (8) Acute on chronic renal failure Current Visit: Yes Status: Acute Nephrology following. Creatinine and GFR continuing to improve. Nephro following and recommends continuing IV Lasix 80 mg twice a day. Patient has not required dialysis recently. Nephro okay with the dialysis line being removed either tomorrow or Wednesday. Continue IV Lasix Monitor I's and O's Remove dialysis catheter tomorrow. Qualifiers: Acute renal failure type: unspecified Chronic kidney disease stage: stage 3 (moderate) Qualified Code(s): N17.9 - Acute kidney failure, unspecified; N18.3 - Chronic kidney disease, stage 3 (moderate) Subjective Principal diagnosis: Respiratory insufficiency Interval history: No major events overnight. Levophed is in progress of being titrated down but still at 3mcg. Patient is able to follow commands, mouth answers questions. She currently denies any chest pain, shortness of breath, nausea, vomiting, abdominal pain. She is tolerating tube feeds well via [place]. FiO2 has been decreased to 50%. I spoke with Dr. Thomas with ENT. Due to patient's status on vasopressors, she does not recommend changing out the trach piece at this time. She would recommend the trach be replaced in 2 weeks. This can be done here at [place], or if patient is in extended care facility, this could be consulted to ENT in [place]. Patient in progress of being set up for care at [facility] extended care facility in [place]. Objective PUL Vital signs: Last Vital Signs Temp 98.9 F 06/29/17 03:58 Pulse 81 06/29/17 07:00 Resp 16 06/29/17 07:00 BP 81/55 06/29/17 07:00 Pulse Ox 93 06/29/17 07:00 General appearance: no acute distress, alert Eyes: nonicteric ENT: oropharynx moist Neck: supple Effort: normal, other (on ventiallator assistance via trach) Auscultation: bilateral: clear Cardiovascular: regular rate and rhythm Gastrointestinal: normoactive bowel sounds, soft, non-tender, non-distended Integumentary: normal Extremities: no cyanosis, edema (Pitting bilateral lower extremities) Musculoskeletal: no deformities Gait: other (Unable to assess due to patient being bedbound) normal mental status, non-focal exam, pupils equal and round mood appropriate, affect normal Ventilator Settings Ventilator Settings: Ventilator Settings, Last 8 Hours Ventilator Mode VC+ Ventilator Mode A/C Ventilator Mode VC+ Ventilator Mode VC+ Ventilator Mode VC+ Ventilator Tidal Volume 400 Setting Ventilator Tidal Volume 400 Setting Ventilator Tidal Volume 400 Setting Ventilator Tidal Volume 400 Setting Ventilator Tidal Volume 400 Setting Ventilator Respiratory Rate 15 Setting Ventilator Respiratory Rate 14 Setting Ventilator Respiratory Rate 14 Setting Ventilator Respiratory Rate 14 Setting Ventilator Respiratory Rate 14 Setting Actual Respiratory Rate 16 Actual Respiratory Rate 17 Actual Respiratory Rate 22 Actual Respiratory Rate 17 Positive End Expiratory 5 Pressure Positive End Expiratory 5 Pressure Positive End Expiratory 5 Pressure Positive End Expiratory 5 Pressure Positive End Expiratory 5 Pressure Peak Inspiratory Airway 30 Pressure Peak Inspiratory Airway 29 Pressure Peak Inspiratory Airway 40 Pressure Peak Inspiratory Airway 25 Pressure Results - Laboratory Findings CBC and BMP: 06/29/17 03:55 06/29/17 03:55 ABG ABG pH 7.33 pH Units (7.32-7.45) 06/29/17 03:59 ABG pCO2 72 mmHg (35-45) H* 06/29/17 03:59 ABG pO2 81 mmHg (85-104) L 06/29/17 03:59 ABG O2 Saturation 95 % (95-98) 06/29/17 03:59 PT/INR, D-dimer PT 14.6 Seconds (9.4-12.1) H 06/22/17 03:30 Abnormal lab findings: Abnormal lab results RBC 3.05 M/mcL (3.82-4.97) L 06/29/17 03:55 Hgb 8.6 g/dL (11.5-15.4) L 06/29/17 03:55 Hct 28.8 % (35.3-44.9) L 06/29/17 03:55 MCHC 29.9 g/dL (31.6-35.5) L 06/29/17 03:55 RDW 17.1 % (11.5-14.5) H 06/29/17 03:55 Plt Count 434 K/mcL (140-400) H 06/29/17 03:55 Nucleated RBCs/100 WBC 0.3 /100 WBC (0) H 06/03/17 04:00 Reactive Lymphocytes Present (Not Present) A 06/01/17 03:30 Large Platelets Present (Not Present) A 06/17/17 03:00 Immature Plt Fraction 10.6 % (1.1-6.1) H 06/06/17 04:40 Polychromasia 1+ (Not Present) A 06/01/17 03:30 Hypochromasia Present (Not Present) A 06/17/17 03:00 Basophilic Stippling 1+ (Not Present) A 06/01/17 03:30 Anisocytosis 1+ (Not Present) A 06/23/17 07:57 Microcytosis Present (Not Present) A 06/17/17 03:00 Macrocytosis Present (Not Present) A 06/17/17 03:00 PT 14.6 Seconds (9.4-12.1) H 06/22/17 03:30 ABG pCO2 72 mmHg (35-45) H* 06/29/17 03:59 ABG pO2 81 mmHg (85-104) L 06/29/17 03:59 ABG HCO3 38.0 mEQ/L (21-27) H 06/29/17 03:59 ABG Total CO2 40.2 mEq/L (20-26) H 06/29/17 03:59 ABG Base Excess 10.0 mEq/L (-2.0 to 3.0) H 06/29/17 03:59 VBG pH 7.50 pH Units (7.32-7.42) H 05/31/17 21:46 VBG pO2 202 mmHg (25-40) H 05/31/17 21:46 VBG HCO3 36.7 mEq/L (21-27) H 05/31/17 21:46 Mixed VBG pH 7.29 (7.34-7.36) L 05/31/17 21:46 Mixed VBG pCO2 89 mmHg (44-46) H 05/31/17 21:46 Mixed VBG pO2 73 mmHg (35-45) H 05/31/17 21:46 Mixed VBG Oxyhemoglobin 93.0 % (60-80) H 05/31/17 21:46 Sodium 135 mEq/L (136-145) L 06/29/17 03:55 Chloride 93 mEq/L (98-109) L 06/29/17 03:55 Carbon Dioxide 31 mEq/L (19-29) H 06/29/17 03:55 BUN 54 mg/dL (7-20) H 06/29/17 03:55 Creatinine 2.04 mg/dL (0.57-1.11) H 06/29/17 03:55 Est GFR ( Amer) 32 (> 60) L 06/29/17 03:55 Est GFR (Non-Af Amer) 26 (> 60) L 06/29/17 03:55 Glucose 170 mg/dL (70-99) H 06/29/17 03:55 POC Glucose 148 (58-89) H 06/29/17 07:32 Phosphorus 5.3 mg/dL (2.3-4.7) H 06/29/17 03:55 Magnesium 1.5 mg/dL (1.6-2.6) L 06/29/17 03:55 Direct Bilirubin 0.6 mg/dL (0.0-0.5) H 06/26/17 04:50 Alkaline Phosphatase 169 Units/L (38-126) H 06/26/17 04:50 Creatine Kinase 200 Units/L (29-168) H 06/01/17 03:06 Troponin I 0.36 ng/mL (0-0.03) H* 05/29/17 15:53 B-Natriuretic Peptide 254 pg/mL (0-100) H 06/28/17 04:15 Serum Total Protein 5.9 g/dL (6.0-8.3) L 06/26/17 04:50 Albumin 1.7 g/dL (3.5-5.0) L 06/26/17 04:50 Globulin 4.2 g/dL (2.4-3.5) H 06/26/17 04:50 Albumin/Globulin Ratio 0.4 (1.1-2.2) L 06/26/17 04:50 Lipase 112 Units/L (8-78) H 06/22/17 12:35 Free T3 1.01 pg/mL (1.71-3.71) L 06/28/17 12:35 Urine Clarity Hazy (Clear) A 05/29/17 18:15 Ur Specific [place] 1.026 (1.010-1.025) H 05/29/17 18:15 Urine Protein 30 mg/dL (Neg-Trace) H 05/29/17 18:15 Urine Ketones Trace mg/dL (Negative) H 05/29/17 18:15 Urine Bilirubin Small (Negative) H 05/29/17 18:15 Urine Microscopic WBC 15-30 per hpf (0-3) H 05/29/17 18:15 Ur Squamous Epith Cells Many per lpf (None-Few) H 05/29/17 18:15 Amorphous Sediment Moderate (Few) H 05/29/17 18:15 Urine Bacteria Moderate per hpf (None-Few) H 05/29/17 18:15 Hyaline Casts Moderate per lpf (None-Few) H 05/29/17 18:15 Ur Culture Indicated? YES (NO) A 05/29/17 18:15 - Clinical Findings Intake & Output: Intake & Output 06/28/17 06/28/17 06/29/17 15:59 23:59 07:59 Intake Total 1717 / 1717 483 / 483 580 / 580 Output Total 1400 / 1400 900 / 900 1300 / 1300 Balance 317 / 317 -417 / -417 -720 / -720 Weight 129.319 kg - VTE Documentation of Mechanical Device: Intermittent pneumatic compression device Consult Discharge Plan - Plan Referrals: Mi Warren, MEDIA CENTER DIRECTOR SCHOOL [Advanced Practice Nurse] - (computers are down call back later ) <Rebecca Hernandez - Last Filed: 06/29/17 15:07> Date of Encounter: 06/29/17 Objective PUL Vital signs: Last Vital Signs Temp 98.8 F 06/29/17 12:25 Pulse 81 06/29/17 13:00 Resp 21 06/29/17 13:15 BP 81/62 06/29/17 13:15 Pulse Ox 95 06/29/17 13:15 Ventilator Settings Ventilator Settings: Ventilator Settings, Last 8 Hours Ventilator Mode VC+ Ventilator Mode VC+ Ventilator Mode VC+ Ventilator Mode VC+ Ventilator Mode VC+ Ventilator Mode VC+ Ventilator Mode VC+ Ventilator Mode VC+ Ventilator Tidal Volume 400 Setting Ventilator Tidal Volume 400 Setting Ventilator Tidal Volume 400 Setting Ventilator Tidal Volume 400 Setting Ventilator Tidal Volume 400 Setting Ventilator Tidal Volume 400 Setting Ventilator Tidal Volume 400 Setting Ventilator Tidal Volume 400 Setting Ventilator Respiratory Rate 15 Setting Ventilator Respiratory Rate 15 Setting Ventilator Respiratory Rate 15 Setting Ventilator Respiratory Rate 15 Setting Ventilator Respiratory Rate 15 Setting Ventilator Respiratory Rate 15 Setting Ventilator Respiratory Rate 15 Setting Ventilator Respiratory Rate 15 Setting Actual Respiratory Rate 16 Actual Respiratory Rate 15 Actual Respiratory Rate 17 Actual Respiratory Rate 19 Actual Respiratory Rate 16 Actual Respiratory Rate 18 Actual Respiratory Rate 19 Actual Respiratory Rate 16 Positive End Expiratory 5 Pressure Positive End Expiratory 5 Pressure Positive End Expiratory 5 Pressure Positive End Expiratory 5 Pressure Positive End Expiratory 5 Pressure Positive End Expiratory 5 Pressure Positive End Expiratory 5 Pressure Positive End Expiratory 5 Pressure Peak Inspiratory Airway 28 Pressure Peak Inspiratory Airway 28 Pressure Peak Inspiratory Airway 42 Pressure Peak Inspiratory Airway 31 Pressure Peak Inspiratory Airway 30 Pressure Peak Inspiratory Airway 30 Pressure Peak Inspiratory Airway 33 Pressure Peak Inspiratory Airway 30 Pressure Results - Laboratory Findings CBC and BMP: 06/29/17 03:55 06/29/17 03:55 ABG ABG pH 7.33 pH Units (7.32-7.45) 06/29/17 03:59 ABG pCO2 72 mmHg (35-45) H* 06/29/17 03:59 ABG pO2 81 mmHg (85-104) L 06/29/17 03:59 ABG O2 Saturation 95 % (95-98) 06/29/17 03:59 PT/INR, D-dimer PT 14.6 Seconds (9.4-12.1) H 06/22/17 03:30 Abnormal lab findings: Abnormal lab results RBC 3.05 M/mcL (3.82-4.97) L 06/29/17 03:55 Hgb 8.6 g/dL (11.5-15.4) L 06/29/17 03:55 Hct 28.8 % (35.3-44.9) L 06/29/17 03:55 MCHC 29.9 g/dL (31.6-35.5) L 06/29/17 03:55 RDW 17.1 % (11.5-14.5) H 06/29/17 03:55 Plt Count 434 K/mcL (140-400) H 06/29/17 03:55 Nucleated RBCs/100 WBC 0.3 /100 WBC (0) H 06/03/17 04:00 Reactive Lymphocytes Present (Not Present) A 06/01/17 03:30 Large Platelets Present (Not Present) A 06/17/17 03:00 Immature Plt Fraction 10.6 % (1.1-6.1) H 06/06/17 04:40 Polychromasia 1+ (Not Present) A 06/01/17 03:30 Hypochromasia Present (Not Present) A 06/17/17 03:00 Basophilic Stippling 1+ (Not Present) A 06/01/17 03:30 Anisocytosis 1+ (Not Present) A 06/23/17 07:57 Microcytosis Present (Not Present) A 06/17/17 03:00 Macrocytosis Present (Not Present) A 06/17/17 03:00 PT 14.6 Seconds (9.4-12.1) H 06/22/17 03:30 ABG pCO2 72 mmHg (35-45) H* 06/29/17 03:59 ABG pO2 81 mmHg (85-104) L 06/29/17 03:59 ABG HCO3 38.0 mEQ/L (21-27) H 06/29/17 03:59 ABG Total CO2 40.2 mEq/L (20-26) H 06/29/17 03:59 ABG Base Excess 10.0 mEq/L (-2.0 to 3.0) H 06/29/17 03:59 VBG pH 7.50 pH Units (7.32-7.42) H 05/31/17 21:46 VBG pO2 202 mmHg (25-40) H 05/31/17 21:46 VBG HCO3 36.7 mEq/L (21-27) H 05/31/17 21:46 Mixed VBG pH 7.29 (7.34-7.36) L 05/31/17 21:46 Mixed VBG pCO2 89 mmHg (44-46) H 05/31/17 21:46 Mixed VBG pO2 73 mmHg (35-45) H 05/31/17 21:46 Mixed VBG Oxyhemoglobin 93.0 % (60-80) H 05/31/17 21:46 Sodium 135 mEq/L (136-145) L 06/29/17 03:55 Chloride 93 mEq/L (98-109) L 06/29/17 03:55 Carbon Dioxide 31 mEq/L (19-29) H 06/29/17 03:55 BUN 54 mg/dL (7-20) H 06/29/17 03:55 Creatinine 2.04 mg/dL (0.57-1.11) H 06/29/17 03:55 Est GFR ( Amer) 32 (> 60) L 06/29/17 03:55 Est GFR (Non-Af Amer) 26 (> 60) L 06/29/17 03:55 Glucose 170 mg/dL (70-99) H 06/29/17 03:55 POC Glucose 136 (58-89) H 06/29/17 11:35 Phosphorus 5.3 mg/dL (2.3-4.7) H 06/29/17 03:55 Magnesium 1.5 mg/dL (1.6-2.6) L 06/29/17 03:55 Direct Bilirubin 0.6 mg/dL (0.0-0.5) H 06/26/17 04:50 Alkaline Phosphatase 169 Units/L (38-126) H 06/26/17 04:50 Creatine Kinase 200 Units/L (29-168) H 06/01/17 03:06 Troponin I 0.36 ng/mL (0-0.03) H* 05/29/17 15:53 B-Natriuretic Peptide 254 pg/mL (0-100) H 06/28/17 04:15 Serum Total Protein 5.9 g/dL (6.0-8.3) L 06/26/17 04:50 Albumin 1.7 g/dL (3.5-5.0) L 06/26/17 04:50 Globulin 4.2 g/dL (2.4-3.5) H 06/26/17 04:50 Albumin/Globulin Ratio 0.4 (1.1-2.2) L 06/26/17 04:50 Lipase 112 Units/L (8-78) H 06/22/17 12:35 Free T3 1.01 pg/mL (1.71-3.71) L 06/28/17 12:35 Urine Clarity Hazy (Clear) A 05/29/17 18:15 Ur Specific [place] 1.026 (1.010-1.025) H 05/29/17 18:15 Urine Protein 30 mg/dL (Neg-Trace) H 05/29/17 18:15 Urine Ketones Trace mg/dL (Negative) H 05/29/17 18:15 Urine Bilirubin Small (Negative) H 05/29/17 18:15 Urine Microscopic WBC 15-30 per hpf (0-3) H 05/29/17 18:15 Ur Squamous Epith Cells Many per lpf (None-Few) H 05/29/17 18:15 Amorphous Sediment Moderate (Few) H 05/29/17 18:15 Urine Bacteria Moderate per hpf (None-Few) H 05/29/17 18:15 Hyaline Casts Moderate per lpf (None-Few) H 05/29/17 18:15 Ur Culture Indicated? YES (NO) A 05/29/17 18:15 - Clinical Findings Intake & Output: Intake & Output 06/28/17 06/29/17 06/29/17 23:59 07:59 15:59 Intake Total 483 / 483 580 / 580 1004 / 1004 Output Total 900 / 900 1775 / 1775 700 / 700 Balance -417 / -417 -1195 / -1195 304 / 304 Weight 129.319 kg - Attending Attestation I examined this patient and my medical decision-making was reviewed with the Resident Physician. I agree with the documented findings, disposition and treatment plan as described except to the extent set forth below. Patient seen and examined. Labs, radiology, chart personally reviewed. Agree with resident's history and physical, assessment, plan with following comments: RETAIL EQUIPMENT ASSOCIATE: Patient follows commands, Pulmonary: Acceptable oxygenation and ventilation and lowered FiO2 to 50% and continued to be normal. Cardiovascular: Continue wean off Levophed. GI: Nutrition per dietary and GI prophylaxis per routine. Patient is not stable for a PEG tube. Heme: DVT prophylaxis per routine ID: Continue antibiotics and plan to de-escalation Renal; urine out put and renal funtion reviewed Endorcine: blood glucose is monitored Lines: all lines checked and no evidence of infections Skin: skin care to prevent pressure ulcers per nursing routine care Will wait for LTAC evaluation otherwise patient needs to be transferred to heart failure service such as [facility] for further management
[2017-06-29] MEDS: Chlorhexidine Rinse 15 ML MOUTHWASH MM SCH ×2 (08:02→20:51)
[2017-06-29] MEDS: Pantoprazole 40 MG VIAL IVP SCH (08:02)
[2017-06-29] MEDS: Furosemide 40 MG/4 ML VIAL IVP SCH ×2 (08:02→15:29)
[2017-06-29] MEDS: Docusate Oral Soln 100 MG/10 ML UDC PO SCH ×2 (08:03→20:51)
[2017-06-29] MEDS: Nystatin POWDER 30 GM BOTTLE TP SCH ×2 (08:03→20:52)
[2017-06-29] MEDS: Nystatin OINT 15 GM TUBE TP SCH ×4 (08:04→20:52)
[2017-06-29] MEDS ORDERED: clonazePAM 1 MG TABLET PO PRN (08:19)
--- NOTE | 2017-06-29 10:04 | Nephrology Progress Note ---
Date of Encounter: 06/29/17 Time of Encounter: 09:00 - Assessment and Plan (1) BLANCA (acute kidney injury) Current Visit: Yes Status: Acute Nonoliguric BLANCA that appears stable and responsive to diuretics. I recommend continuing diuretics to help manage her volume status. No need for NURSE ANESTHESIA PROGRAM DIRECTOR today. Okay to have the temporry HD catheter removed since she has not needed it for NURSE ANESTHESIA PROGRAM DIRECTOR. Anasarca: the lasix 80mg IV bid is helped her achieve a net negative state Meanwhile continue to follow a renal protective / supportive strategy. Avoid IV contrast, if able. Strict I/Os, daily weights. Avoid other nephrotoxin exposures. Thank you. (2) Acute and chronic respiratory failure Current Visit: Yes Status: Acute As per primary. S/p trach. Qualifiers: Respiratory failure complication: hypoxia and hypercapnia Qualified Code(s) : J96.21 - Acute and chronic respiratory failure with hypoxia; J96.22 - Acute and chronic respiratory failure with hypercapnia (3) Cor pulmonale Current Visit: Yes Status: Chronic Diuretics to focus on improving her volume status. (4) Edema Current Visit: Yes Status: Chronic See above. 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 (6) Anasarca Current Visit: Yes Status: Acute See above Subjective Principal diagnosis: Respiratory insufficiency Interval history: Pt was seen/examined while in the ICU. She remains intubated: thus limiting subjective history. I discussed her vitals, labs, I/Os with the MAIL WEIGHER. No acute events overnight and making great UOP, as discussed with the MAIL WEIGHER. Objective - Vital Signs Vital signs: Vital Signs Temp Pulse Resp BP Pulse Ox 06/29/17 09:00 84 18 82/52 95 06/29/17 08:00 80 19 90/61 94 06/29/17 07:59 98.8 F 06/29/17 07:30 16 87/56 93 06/29/17 07:00 81 16 81/55 93 06/29/17 06:00 87 16 83/52 95 06/29/17 05:00 88 15 92/58 95 06/29/17 04:00 96 06/29/17 03:58 98.9 F 96 17 96/60 96 06/29/17 03:36 23 91 06/29/17 03:00 112 40 88/58 88 06/29/17 02:00 110 20 90/62 91 06/29/17 01:00 84 15 84/55 97 06/29/17 00:28 98.8 F 06/29/17 00:00 98.8 F 83 15 80/53 97 06/28/17 23:32 15 96 06/28/17 23:00 87 14 70/52 97 06/28/17 22:22 15 96 06/28/17 22:00 87 13 111/73 96 06/28/17 21:00 102 18 99/68 94 06/28/17 20:07 19 94 06/28/17 20:00 98.6 F 102 20 95/61 95 06/28/17 19:00 98 19 99/64 96 06/28/17 18:00 88 19 89/59 94 06/28/17 17:00 88 19 85/55 94 06/28/17 16:04 17 96 06/28/17 16:00 89 17 90/55 96 06/28/17 15:50 98.6 F 06/28/17 15:00 94 17 91/59 96 06/28/17 14:00 90 17 93/62 95 06/28/17 13:47 17 96 06/28/17 13:00 99 17 86/56 95 06/28/17 11:41 98.6 F 06/28/17 11:10 18 93 06/28/17 11:00 106 Intake and Output 06/28/17 06/29/17 06/29/17 23:59 07:59 15:59 Intake Total 483 / 483 580 / 580 404 / 404 Output Total 900 / 900 1775 / 1775 Balance -417 / -417 -1195 / -1195 404 / 404 Intake: IV Fluids 415 / 415 507 / 507 404 / 404 PRECEDEX 400 mcg In 100 100 / 100 200 / 200 100 / 100 ml @ 0.3 MCG/KG/HR 10.358 mls/hr IVC .[id number] [facility] Rx#:[id number] FentaNYL (PF) 3,000 MCG 100 / 100 200 / 200 In 0.9 % Sodium Chloride 240 ML @ 100 MCG/HR 10 mls/hr IVC [facility] [place] Rx#: [id number] Versed 50 MG In 0.9 % 33 / 33 67 / 67 Sodium Chloride 90 ML @ 2 MG/HR 4 mls/hr IVC [facility] [place] Rx#:[id number] Levophed 4 MG In Dextrose 82 / 82 40 / 40 5% 250 ML @ 5 MCG/MIN 18 .75 mls/hr IVC [facility] [place] Rx#:[id number] Magnesium Sulfate 2 GM In 104 / 104 Dextrose 5% 100 ML @ 50 mls/hr IVPB Q6H PRN Rx#: [id number] Zosyn 3.375 GM In 100 / 100 Dextrose 5% (Minibag+) 100 ML 100 ML @ 25 mls/hr IVPB Q12HR [place] Rx#: [id number] Potassium Chloride 20 mEq 200 / 200 /100 mL 40 meq In 200 ml @ 100 mls/hr IVPB Q1H PRN Rx#:[id number] Tube Feeding 68 / 68 73 / 73 Output: Catheter 900 / 900 1775 / 1775 Other: Weight 129.319 kg Blood Glucose* 171 148 Patient Weight 06/29/17 23:59 Weight 129.319 kg - General Appearance Exam: General appearance: Present: obese, chronically ill, intubated, fatigue, frail, anxious EENT: Present: mucous membranes moist Neck: Present: supple Respiratory: Present: course breath sounds Cardiology: Present: edema (anasarca from feet to hands), normal S1, normal S2 Dialysis Vascular Access: Venous Catheter (Rt IJ temporary HD catheter with dressing that is C/D/I) Gastrointestinal: Present: normoactive bowel sounds, no tenderness Integumentary: Present: warm and dry Neurologic: Present: no focal deficit, no asterixis Musculoskeletal: Present: no cyanosis, no clubbing Psychiatric: Present: cooperative - Lab 06/29/17 03:55 06/29/17 03:55 Most recent lab results ABG pH 7.33 pH Units (7.32-7.45) 06/29/17 03:59 ABG pCO2 72 mmHg (35-45) H* 06/29/17 03:59 ABG pO2 81 mmHg (85-104) L 06/29/17 03:59 ABG HCO3 38.0 mEQ/L (21-27) H 06/29/17 03:59 ABG O2 Saturation 95 % (95-98) 06/29/17 03:59 Calcium 9.0 mg/dL (8.6-10.8) 06/29/17 03:55 Phosphorus 5.3 mg/dL (2.3-4.7) H 06/29/17 03:55 Magnesium 1.5 mg/dL (1.6-2.6) L 06/29/17 03:55 Urine Creatinine 88 mg/dL 06/17/17 07:15 Urine Sodium 27.0 mEq/L 06/17/17 07:15 - VTE Documentation of Mechanical Device: Intermittent pneumatic compression device Consult Discharge Plan - Plan Referrals: Mi Warren, DIESEL SERVICE JOURNEYMAN [Advanced Practice Nurse] - (computers are down call back later )
[2017-06-29] MEDS: MILRINONE 20 MG/100 ML IVC SCH (15:35)
[2017-06-30] MEDS: Dexmedetomidine HCl 400 MCG/100 ML MLS IVC SCH ×6 (00:18→21:45)
[2017-06-30] MEDS: Norepinephrine 4 MG in D5% in Water 250 ML IVC SCH ×2 (00:19→19:49)
[2017-06-30] MEDS: FentaNYL (PF) 3,000 MCG in 0.9 % Sodium Chloride 240 ML IVC SCH ×3 (00:19→16:52)
[2017-06-30] MEDS: Lacri-Lube 3.5 GM TUBE BOTH EYES SCH ×6 (00:20→21:07)
[2017-06-30] MEDS: Insulin LISPRO 300 UNITS/3 ML VIAL SQ SCH ×6 (00:20→21:06)
[2017-06-30] MEDS: Piperacillin/Tazobactam 3.375 GM in D5% in Water (Mini-Bag+) 100 ML IVPB SCH ×2 (03:00→10:26)
[2017-06-30 03:39] LABS: Basophils # 0.1 K/mcL (0.0-0.2); Basophils % 0.6 %; Eosinophils # 0.1 K/mcL (0.0-0.6); Eosinophils % 1.4 %; Hematocrit 27.5 % (35.3-44.9); Hemoglobin 8.2 g/dL (11.5-15.4); Immature Granulocytes % 0.6 % (0-4); Mean Corpuscular HGB Conc 29.8 g/dL (31.6-35.5); Mean Corpuscular Hemoglobin 28.3 pg (28.0-33.3); Mean Corpuscular Volume 94.8 fL (83.0-100.0); Mean Platelet Volume 10.8 fL (9.4-12.4); Monocytes # 0.6 K/mcL (0.0-1.3); Monocytes % 7.3 %; Neutrophils # 6.1 K/mcL (1.6-8.9); Platelet Count 423 K/mcL (140-400); Red Cell Distribution Width 17.2 % (11.5-14.5); Segmented Neutrophils % 77.1 %
[2017-06-30 03:49] LABS: Magnesium 1.6 mg/dL (1.6-2.6)
[2017-06-30 03:50] LABS: Calcium 9.1 mg/dL (8.6-10.8); Potassium 3.8 mEq/L (3.5-4.5)
[2017-06-30] MEDS: *HR* HYDROmorphone (PF) 1 MG/ML SYRINGE IVP PRN ×3 (04:15→17:15)
[2017-06-30] MEDS: Potassium Chloride 40 MEQ/200 ML BAG IVPB PRN (04:17)
[2017-06-30 04:59] LABS: ABG Base Excess 9.9 mEq/L (-2.0 to 3.0); ABG HCO3 37.8 mEQ/L (21-27); ABG Oxygen Saturation 91 % (95-98); ABG PH 7.34 pH Units (7.32-7.45); ABG PO2 65 mmHg (85-104); ABG TCO2 39.9 mEq/L (20-26); Blood Gas FiO2 70 %
[2017-06-30 05:00] LABS: ABG PCO2 70 mmHg (35-45)
[2017-06-30] MEDS: Magnesium Sulfate 2 GM in D5% in Water 100 ML IVPB PRN (05:05)
[2017-06-30] MEDS: *HR* Heparin 5,000 UNIT/ML VIAL SQ SCH ×2 (05:05→17:13)
[2017-06-30 06:41] LABS: ABG Base Excess 11.6 mEq/L (-2.0 to 3.0); ABG Oxygen Saturation 95 % (95-98); ABG PCO2 69 mmHg (35-45); ABG PH 7.36 pH Units (7.32-7.45); ABG PO2 78 mmHg (85-104); ABG TCO2 41.1 mEq/L (20-26)
[2017-06-30 06:42] LABS: Blood Gas FiO2 70 %
[2017-06-30] MEDS: Furosemide 40 MG/4 ML VIAL IVP SCH ×3 (07:50→17:05)
[2017-06-30] MEDS: Docusate Oral Soln 100 MG/10 ML UDC PO SCH ×2 (07:50→21:05)
[2017-06-30] MEDS: Pantoprazole 40 MG VIAL IVP SCH (07:50)
[2017-06-30] MEDS: Chlorhexidine Rinse 15 ML MOUTHWASH MM SCH ×2 (07:50→21:06)
[2017-06-30] MEDS: Budesonide/Formoterol 160/4.5 MDI IH SCH ×2 (07:50→19:42)
[2017-06-30] MEDS ORDERED: *HR* Acetaminophen w/Cod 300-30 mg 1 TAB TABLET PO PRN (07:51)
--- NOTE | 2017-06-30 08:08 | Pulmonology Progress Note ---
<Jacek Avitia - Last Filed: 06/30/17 09:19> Date of Encounter: 06/30/17 Time of Encounter: 08:07 Assessment and Plan (1) Acute and chronic respiratory failure Current Visit: Yes Status: Acute Patient currently on trach and ventilator. FiO2 had to be increased to 70% overnight due to one episode of desaturation. She is currently tolerating ventilator well with good O2 sat. Continue trach ventilation. Consulted ENT to discuss trach exchange - I spoke with Dr. Thomas with ENT. Due to patient's status on vasopressors, she does not recommend changing out the trach piece at this time. She would recommend the trach be replaced in 2 weeks. This can be done here at [place], or if patient is in extended care facility, this could be consulted to ENT in [place]. Planning on transferring the patient to [facility] long-term care [facility] in [place], director of social work working on this. I discussed sending the patient to [facility] with both the patient's son and niece. They were agreeable with this plan. They also discussed this with the director of social work automation controls expert. Heparin subcutaneous for DVT prophylaxis. Continue enteral feedings. Continue Zosyn for cholecystitis Protonix for GI prophylaxis Qualifiers: Respiratory failure complication: hypoxia and hypercapnia Qualified Code(s) : J96.21 - Acute and chronic respiratory failure with hypoxia; J96.22 - Acute and chronic respiratory failure with hypercapnia (2) Acute on chronic renal failure Current Visit: Yes Status: Acute Nephrology following. Creatinine and GFR continuing to improve. I spoke with Dr. Rico this morning due to patient's continued LE edema and pulmonary edema that may be mildly worsened. Dialysis was discussed and nephro did not think that patient was stable enough for hemodialysis. He recommended giving a mid day dose of 40mg lasix IV in addition to 80mg IV daily. Will keep dialysis catheter in for now in case it is needed for dialysis. Continue IV Lasix 80mg BID Add on IV lasix 40mg at noon daily Monitor I's and O's Qualifiers: Acute renal failure type: unspecified Chronic kidney disease stage: stage 3 (moderate) Qualified Code(s): N17.9 - Acute kidney failure, unspecified; N18.3 - Chronic kidney disease, stage 3 (moderate) (3) Hypotension Current Visit: Yes Status: Acute Blood pressure 80s over 50s. Patient mentating well. Currently on Levophed 3mcg , will work on titrating down. Milrinone turned off. Cortisol and THS, free T4 are WNL. Continue to attempt to wean levophed Qualifiers: Hypotension type: unspecified hypotension type Qualified Code(s): I95.9 - Hypotension, unspecified (4) Chronic systolic (congestive) heart failure Current Visit: Yes Status: Chronic IV lasix 80 BID and 40mg at noon (5) Cor pulmonale Current Visit: Yes Status: Chronic See above (6) Moderate to severe pulmonary hypertension Current Visit: Yes Status: Chronic See above (7) Morbid obesity with BMI of 50.0-59.9, adult Current Visit: Yes Status: Chronic (8) SMITA treated with BiPAP Current Visit: Yes Status: Chronic On trach ventillation (9) Agitation Current Visit: Yes Status: Acute Started klonopin 2mg [id number] PRN, work on decreasing versed drip. Seroquel for agitation Tylenol 3 added on for pain control, will work on decreasing fentanyl drip Added on sertraline 50mg daily for anxiety Subjective Principal diagnosis: Respiratory insufficiency Interval history: FiO2 had to be increased to 70% overnight due to one episode of desaturation. Levophed is in progress of being titrated down but still at 3mcg. Patient is able to follow commands, mouth answers questions. Currently admits to mild diffuse abdominal pain. She is tolerating tube feeds well via [place]. She currently denies any chest pain, shortness of breath, nausea, vomiting. I spoke with Dr. Rico this morning due to patient's continued LE edema and pulmonary edema that may be mildly worsened. Dialysis was discussed and nephro did not think that patient was stable enough for hemodialysis. He recommended giving a mid day dose of 40mg lasix IV in addition to 80mg IV daily. Will keep dialysis catheter in for now in case it is needed for dialysis. Patient in progress of being set up for care at [facility] facility in [place]. Objective PUL Vital signs: Last Vital Signs Temp 97.7 F 06/30/17 04:00 Pulse 73 06/30/17 07:30 Resp 15 06/30/17 07:50 BP 92/63 06/30/17 07:50 Pulse Ox 97 06/30/17 07:50 Ventilator Settings Ventilator Settings: Ventilator Settings, Last 8 Hours Ventilator Mode VC+ Ventilator Mode VC+ Ventilator Mode VC+ Ventilator Mode VC+ Ventilator Mode VC+ Ventilator Mode VC+ Ventilator Mode VC+ Ventilator Mode VC+ Ventilator Mode VC+ Ventilator Tidal Volume 450 Setting Ventilator Tidal Volume 450 Setting Ventilator Tidal Volume 450 Setting Ventilator Tidal Volume 400 Setting Ventilator Tidal Volume 400 Setting Ventilator Tidal Volume 400 Setting Ventilator Tidal Volume 400 Setting Ventilator Tidal Volume 400 Setting Ventilator Tidal Volume 400 Setting Ventilator Respiratory Rate 15 Setting Ventilator Respiratory Rate 15 Setting Ventilator Respiratory Rate 15 Setting Ventilator Respiratory Rate 15 Setting Ventilator Respiratory Rate 15 Setting Ventilator Respiratory Rate 15 Setting Ventilator Respiratory Rate 15 Setting Ventilator Respiratory Rate 15 Setting Ventilator Respiratory Rate 15 Setting Actual Respiratory Rate 15 Actual Respiratory Rate 15 Actual Respiratory Rate 15 Actual Respiratory Rate 17 Actual Respiratory Rate 16 Actual Respiratory Rate 15 Actual Respiratory Rate 16 Positive End Expiratory 8 Pressure Positive End Expiratory 8 Pressure Positive End Expiratory 8 Pressure Positive End Expiratory 5 Pressure Positive End Expiratory 5 Pressure Positive End Expiratory 5 Pressure Positive End Expiratory 5 Pressure Positive End Expiratory 5 Pressure Positive End Expiratory 5 Pressure Peak Inspiratory Airway 36 Pressure Peak Inspiratory Airway 39 Pressure Peak Inspiratory Airway 40 Pressure Peak Inspiratory Airway 30 Pressure Peak Inspiratory Airway 32 Pressure Peak Inspiratory Airway 23 Pressure Peak Inspiratory Airway 30 Pressure Results - Laboratory Findings CBC and BMP: 06/30/17 03:30 06/30/17 03:30 ABG ABG pH 7.36 pH Units (7.32-7.45) 06/30/17 06:35 ABG pCO2 69 mmHg (35-45) H 06/30/17 06:35 ABG pO2 78 mmHg (85-104) L 06/30/17 06:35 ABG O2 Saturation 95 % (95-98) 06/30/17 06:35 PT/INR, D-dimer PT 14.6 Seconds (9.4-12.1) H 06/22/17 03:30 Abnormal lab findings: Abnormal lab results RBC 2.90 M/mcL (3.82-4.97) L 06/30/17 03:30 Hgb 8.2 g/dL (11.5-15.4) L 06/30/17 03:30 Hct 27.5 % (35.3-44.9) L 06/30/17 03:30 MCHC 29.8 g/dL (31.6-35.5) L 06/30/17 03:30 RDW 17.2 % (11.5-14.5) H 06/30/17 03:30 Plt Count 423 K/mcL (140-400) H 06/30/17 03:30 Nucleated RBCs/100 WBC 0.3 /100 WBC (0) H 06/03/17 04:00 Reactive Lymphocytes Present (Not Present) A 06/01/17 03:30 Large Platelets Present (Not Present) A 06/17/17 03:00 Immature Plt Fraction 10.6 % (1.1-6.1) H 06/06/17 04:40 Polychromasia 1+ (Not Present) A 06/01/17 03:30 Hypochromasia Present (Not Present) A 06/17/17 03:00 Basophilic Stippling 1+ (Not Present) A 06/01/17 03:30 Anisocytosis 1+ (Not Present) A 06/23/17 07:57 Microcytosis Present (Not Present) A 06/17/17 03:00 Macrocytosis Present (Not Present) A 06/17/17 03:00 PT 14.6 Seconds (9.4-12.1) H 06/22/17 03:30 ABG pCO2 69 mmHg (35-45) H 06/30/17 06:35 ABG pO2 78 mmHg (85-104) L 06/30/17 06:35 ABG HCO3 39.0 mEQ/L (21-27) H 06/30/17 06:35 ABG Total CO2 41.1 mEq/L (20-26) H 06/30/17 06:35 ABG Base Excess 11.6 mEq/L (-2.0 to 3.0) H 06/30/17 06:35 VBG pH 7.50 pH Units (7.32-7.42) H 05/31/17 21:46 VBG pO2 202 mmHg (25-40) H 05/31/17 21:46 VBG HCO3 36.7 mEq/L (21-27) H 05/31/17 21:46 Mixed VBG pH 7.29 (7.34-7.36) L 05/31/17 21:46 Mixed VBG pCO2 89 mmHg (44-46) H 05/31/17 21:46 Mixed VBG pO2 73 mmHg (35-45) H 05/31/17 21:46 Mixed VBG Oxyhemoglobin 93.0 % (60-80) H 05/31/17 21:46 Chloride 94 mEq/L (98-109) L 06/30/17 03:30 Carbon Dioxide 33 mEq/L (19-29) H 06/30/17 03:30 BUN 54 mg/dL (7-20) H 06/30/17 03:30 Creatinine 1.94 mg/dL (0.57-1.11) H 06/30/17 03:30 Est GFR ( Amer) 34 (> 60) L 06/30/17 03:30 Est GFR (Non-Af Amer) 28 (> 60) L 06/30/17 03:30 BUN/Creatinine Ratio 28 (6-26) H 06/30/17 03:30 Glucose 134 mg/dL (70-99) H 06/30/17 03:30 POC Glucose 169 (58-89) H 06/30/17 07:24 Calculated Osmolality 301 (280-300) H 06/30/17 03:30 Phosphorus 5.0 mg/dL (2.3-4.7) H 06/30/17 03:30 Direct Bilirubin 0.6 mg/dL (0.0-0.5) H 06/26/17 04:50 Alkaline Phosphatase 169 Units/L (38-126) H 06/26/17 04:50 Creatine Kinase 200 Units/L (29-168) H 06/01/17 03:06 Troponin I 0.36 ng/mL (0-0.03) H* 05/29/17 15:53 B-Natriuretic Peptide 254 pg/mL (0-100) H 06/28/17 04:15 Serum Total Protein 5.9 g/dL (6.0-8.3) L 06/26/17 04:50 Albumin 1.7 g/dL (3.5-5.0) L 06/26/17 04:50 Globulin 4.2 g/dL (2.4-3.5) H 06/26/17 04:50 Albumin/Globulin Ratio 0.4 (1.1-2.2) L 06/26/17 04:50 Lipase 112 Units/L (8-78) H 06/22/17 12:35 Free T3 1.01 pg/mL (1.71-3.71) L 06/28/17 12:35 Urine Clarity Hazy (Clear) A 05/29/17 18:15 Ur Specific [place] 1.026 (1.010-1.025) H 05/29/17 18:15 Urine Protein 30 mg/dL (Neg-Trace) H 05/29/17 18:15 Urine Ketones Trace mg/dL (Negative) H 05/29/17 18:15 Urine Bilirubin Small (Negative) H 05/29/17 18:15 Urine Microscopic WBC 15-30 per hpf (0-3) H 05/29/17 18:15 Ur Squamous Epith Cells Many per lpf (None-Few) H 05/29/17 18:15 Amorphous Sediment Moderate (Few) H 05/29/17 18:15 Urine Bacteria Moderate per hpf (None-Few) H 05/29/17 18:15 Hyaline Casts Moderate per lpf (None-Few) H 05/29/17 18:15 Ur Culture Indicated? YES (NO) A 05/29/17 18:15 - Clinical Findings Intake & Output: Intake & Output 06/29/17 06/30/17 06/30/17 23:59 07:59 15:59 Intake Total 775 / 775 967 / 967 Output Total 700 / 700 1100 / 1100 Balance 75 / 75 -133 / -133 Weight 122.379 kg - VTE Documentation of Mechanical Device: Intermittent pneumatic compression device Consult Discharge Plan - Plan Referrals: Mi Warren, TOPSTITCHER LOCKSTITCH [Advanced Practice Nurse] - (computers are down call back later ) - Attending Attestation I examined this patient and my medical decision-making was reviewed with the Resident Physician. I agree with the documented findings, disposition and treatment plan as described except to the extent set forth below. <Rebecca Hernandez - Last Filed: 06/30/17 12:49> Date of Encounter: 06/30/17 Objective PUL Vital signs: Last Vital Signs Temp 98.8 F 06/30/17 07:30 Pulse 82 06/30/17 11:00 Resp 15 06/30/17 11:22 BP 90/59 06/30/17 11:22 Pulse Ox 97 06/30/17 11:22 Ventilator Settings Ventilator Settings: Ventilator Settings, Last 8 Hours Ventilator Mode VC+ Ventilator Mode VC+ Ventilator Mode VC+ Ventilator Mode VC+ Ventilator Mode VC+ Ventilator Mode VC+ Ventilator Mode VC+ Ventilator Mode VC+ Ventilator Mode VC+ Ventilator Mode VC+ Ventilator Mode VC+ Ventilator Tidal Volume 450 Setting Ventilator Tidal Volume 450 Setting Ventilator Tidal Volume 450 Setting Ventilator Tidal Volume 450 Setting Ventilator Tidal Volume 450 Setting Ventilator Tidal Volume 450 Setting Ventilator Tidal Volume 450 Setting Ventilator Tidal Volume 450 Setting Ventilator Tidal Volume 450 Setting Ventilator Tidal Volume 400 Setting Ventilator Tidal Volume 400 Setting Ventilator Respiratory Rate 15 Setting Ventilator Respiratory Rate 15 Setting Ventilator Respiratory Rate 15 Setting Ventilator Respiratory Rate 15 Setting Ventilator Respiratory Rate 15 Setting Ventilator Respiratory Rate 15 Setting Ventilator Respiratory Rate 15 Setting Ventilator Respiratory Rate 15 Setting Ventilator Respiratory Rate 15 Setting Ventilator Respiratory Rate 15 Setting Ventilator Respiratory Rate 15 Setting Actual Respiratory Rate 15 Actual Respiratory Rate 15 Actual Respiratory Rate 15 Actual Respiratory Rate 15 Actual Respiratory Rate 15 Actual Respiratory Rate 15 Actual Respiratory Rate 15 Actual Respiratory Rate 15 Actual Respiratory Rate 15 Positive End Expiratory 8 Pressure Positive End Expiratory 8 Pressure Positive End Expiratory 8 Pressure Positive End Expiratory 8 Pressure Positive End Expiratory 8 Pressure Positive End Expiratory 8 Pressure Positive End Expiratory 8 Pressure Positive End Expiratory 8 Pressure Positive End Expiratory 8 Pressure Positive End Expiratory 5 Pressure Positive End Expiratory 5 Pressure Peak Inspiratory Airway 36 Pressure Peak Inspiratory Airway 37 Pressure Peak Inspiratory Airway 43 Pressure Peak Inspiratory Airway 37 Pressure Peak Inspiratory Airway 34 Pressure Peak Inspiratory Airway 36 Pressure Peak Inspiratory Airway 39 Pressure Peak Inspiratory Airway 40 Pressure Results - Laboratory Findings CBC and BMP: 06/30/17 03:30 06/30/17 03:30 ABG ABG pH 7.36 pH Units (7.32-7.45) 06/30/17 06:35 ABG pCO2 69 mmHg (35-45) H 06/30/17 06:35 ABG pO2 78 mmHg (85-104) L 06/30/17 06:35 ABG O2 Saturation 95 % (95-98) 06/30/17 06:35 PT/INR, D-dimer PT 14.6 Seconds (9.4-12.1) H 06/22/17 03:30 Abnormal lab findings: Abnormal lab results RBC 2.90 M/mcL (3.82-4.97) L 06/30/17 03:30 Hgb 8.2 g/dL (11.5-15.4) L 06/30/17 03:30 Hct 27.5 % (35.3-44.9) L 06/30/17 03:30 MCHC 29.8 g/dL (31.6-35.5) L 06/30/17 03:30 RDW 17.2 % (11.5-14.5) H 06/30/17 03:30 Plt Count 423 K/mcL (140-400) H 06/30/17 03:30 Nucleated RBCs/100 WBC 0.3 /100 WBC (0) H 06/03/17 04:00 Reactive Lymphocytes Present (Not Present) A 06/01/17 03:30 Large Platelets Present (Not Present) A 06/17/17 03:00 Immature Plt Fraction 10.6 % (1.1-6.1) H 06/06/17 04:40 Polychromasia 1+ (Not Present) A 06/01/17 03:30 Hypochromasia Present (Not Present) A 06/17/17 03:00 Basophilic Stippling 1+ (Not Present) A 06/01/17 03:30 Anisocytosis 1+ (Not Present) A 06/23/17 07:57 Microcytosis Present (Not Present) A 06/17/17 03:00 Macrocytosis Present (Not Present) A 06/17/17 03:00 PT 14.6 Seconds (9.4-12.1) H 06/22/17 03:30 ABG pCO2 69 mmHg (35-45) H 06/30/17 06:35 ABG pO2 78 mmHg (85-104) L 06/30/17 06:35 ABG HCO3 39.0 mEQ/L (21-27) H 06/30/17 06:35 ABG Total CO2 41.1 mEq/L (20-26) H 06/30/17 06:35 ABG Base Excess 11.6 mEq/L (-2.0 to 3.0) H 06/30/17 06:35 VBG pH 7.50 pH Units (7.32-7.42) H 05/31/17 21:46 VBG pO2 202 mmHg (25-40) H 05/31/17 21:46 VBG HCO3 36.7 mEq/L (21-27) H 05/31/17 21:46 Mixed VBG pH 7.29 (7.34-7.36) L 05/31/17 21:46 Mixed VBG pCO2 89 mmHg (44-46) H 05/31/17 21:46 Mixed VBG pO2 73 mmHg (35-45) H 05/31/17 21:46 Mixed VBG Oxyhemoglobin 93.0 % (60-80) H 05/31/17 21:46 Chloride 94 mEq/L (98-109) L 06/30/17 03:30 Carbon Dioxide 33 mEq/L (19-29) H 06/30/17 03:30 BUN 54 mg/dL (7-20) H 06/30/17 03:30 Creatinine 1.94 mg/dL (0.57-1.11) H 06/30/17 03:30 Est GFR ( Amer) 34 (> 60) L 06/30/17 03:30 Est GFR (Non-Af Amer) 28 (> 60) L 06/30/17 03:30 BUN/Creatinine Ratio 28 (6-26) H 06/30/17 03:30 Glucose 134 mg/dL (70-99) H 06/30/17 03:30 POC Glucose 157 (58-89) H 06/30/17 11:20 Calculated Osmolality 301 (280-300) H 06/30/17 03:30 Phosphorus 5.0 mg/dL (2.3-4.7) H 06/30/17 03:30 Direct Bilirubin 0.6 mg/dL (0.0-0.5) H 06/26/17 04:50 Alkaline Phosphatase 169 Units/L (38-126) H 06/26/17 04:50 Creatine Kinase 200 Units/L (29-168) H 06/01/17 03:06 Troponin I 0.36 ng/mL (0-0.03) H* 05/29/17 15:53 B-Natriuretic Peptide 254 pg/mL (0-100) H 06/28/17 04:15 Serum Total Protein 5.9 g/dL (6.0-8.3) L 06/26/17 04:50 Albumin 1.7 g/dL (3.5-5.0) L 06/26/17 04:50 Globulin 4.2 g/dL (2.4-3.5) H 06/26/17 04:50 Albumin/Globulin Ratio 0.4 (1.1-2.2) L 06/26/17 04:50 Lipase 112 Units/L (8-78) H 06/22/17 12:35 Free T3 1.01 pg/mL (1.71-3.71) L 06/28/17 12:35 Urine Clarity Hazy (Clear) A 05/29/17 18:15 Ur Specific [place] 1.026 (1.010-1.025) H 05/29/17 18:15 Urine Protein 30 mg/dL (Neg-Trace) H 05/29/17 18:15 Urine Ketones Trace mg/dL (Negative) H 05/29/17 18:15 Urine Bilirubin Small (Negative) H 05/29/17 18:15 Urine Microscopic WBC 15-30 per hpf (0-3) H 05/29/17 18:15 Ur Squamous Epith Cells Many per lpf (None-Few) H 05/29/17 18:15 Amorphous Sediment Moderate (Few) H 05/29/17 18:15 Urine Bacteria Moderate per hpf (None-Few) H 05/29/17 18:15 Hyaline Casts Moderate per lpf (None-Few) H 05/29/17 18:15 Ur Culture Indicated? YES (NO) A 05/29/17 18:15 - Clinical Findings Intake & Output: Intake & Output 06/29/17 06/30/17 06/30/17 23:59 07:59 15:59 Intake Total 775 / 775 1067 / 1067 235 / 235 Output Total 700 / 700 1525 / 1525 Balance 75 / 75 -458 / -458 235 / 235 Weight 122.379 kg - Attending Attestation Patient seen and examined. Labs, radiology, chart personally reviewed. Agree with resident's history and physical, assessment, plan with following comments: LAND RESOURCE SPECIALIST: Patient follows commands, Pulmonary: Acceptable oxygenation and ventilation. Continue vent support and tracheostomy as per ENT management. Cardiovascular: Patient remained on low-dose Levophed GI: Nutrition per dietary and GI prophylaxis per routine Heme: DVT prophylaxis per routine ID: Continue antibiotics and plan to de-escalation Renal; urine out put and renal funtion reviewed. Patient remained volume overloaded clinically and continue diuresis as per magnetizer Endorcine: blood glucose is monitored Lines: all lines checked and no evidence of infections Skin: skin care to prevent pressure ulcers per nursing routine care There is possibility patient will be transferred to LTAC
[2017-06-30] MEDS: Nystatin POWDER 30 GM BOTTLE TP SCH ×2 (08:16→21:06)
[2017-06-30] MEDS: Nystatin OINT 15 GM TUBE TP SCH ×4 (08:17→21:06)
--- NOTE | 2017-06-30 09:23 | Nephrology Progress Note ---
Date of Encounter: 06/30/17 Time of Encounter: 08:35 - Assessment and Plan (1) BLANCA (acute kidney injury) Current Visit: Yes Status: Acute Nonoliguric BLANCA that appears stable and responsive to diuretics. She has been net negative I/Os even, but given the findings seen on CXR, to help augment her diuresis, I do recommend adding a noon time dose of Lasix 40mg IV per day, plus the 80mg IV BID vs changing to a lasix gtt. About a week ago, she developed considerable hemodynamic problems with intermittant HD, so ideally I hope that her volume status could be address with diuretics. Thus far she has shown that she's tolerating the lasix. Okay to have the temporry HD catheter for another 24-48hr incase her volume status and/or renal function were indicate the need for RELIGIOUS EDUCATOR vs CRRT. Meanwhile continue to follow a renal protective / supportive strategy. Avoid IV contrast, if able. Strict I/Os, daily weights. Avoid other nephrotoxin exposures. Discussed with the ICU team. Thank you. (2) Acute and chronic respiratory failure Current Visit: Yes Status: Acute As per primary. S/p trach. Qualifiers: Respiratory failure complication: hypoxia and hypercapnia Qualified Code(s) : J96.21 - Acute and chronic respiratory failure with hypoxia; J96.22 - Acute and chronic respiratory failure with hypercapnia (3) Cor pulmonale Current Visit: Yes Status: Chronic Diuretics to focus on improving her volume status. (4) Edema Current Visit: Yes Status: Chronic See above. 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 (6) Anasarca Current Visit: Yes Status: Acute See above Subjective Principal diagnosis: Respiratory insufficiency Interval history: Pt was seen/examined while in the ICU. She remains intubated: thus limiting subjective history. I discussed her vitals, labs, I/Os with the AUTOMOTIVE TECHNICIAN INSTRUCTOR. No acute events overnight and making great UOP, as discussed with the AUTOMOTIVE TECHNICIAN INSTRUCTOR. Objective - Vital Signs Vital signs: Vital Signs Temp Pulse Resp BP Pulse Ox 06/30/17 08:00 75 15 89/61 96 06/30/17 07:50 15 92/63 97 06/30/17 07:30 98.8 F 73 15 92/63 96 06/30/17 06:00 76 15 91/62 96 06/30/17 05:20 15 93/65 96 06/30/17 05:00 75 18 93/65 95 06/30/17 04:00 97.7 F 79 18 86/66 95 06/30/17 03:36 16 84/61 97 06/30/17 03:00 77 17 83/55 99 06/30/17 02:40 16 87/59 98 06/30/17 02:00 77 17 86/60 99 06/30/17 01:29 98.8 F 06/30/17 01:00 75 20 82/55 98 06/30/17 00:33 16 88/62 98 06/29/17 23:57 73 06/29/17 23:54 73 18 112/74 98 06/29/17 23:00 73 15 85/56 98 06/29/17 22:08 20 93/60 97 06/29/17 22:00 83 16 93/60 98 06/29/17 21:00 83 17 86/55 99 06/29/17 20:23 98.7 F 06/29/17 20:12 16 99/67 100 06/29/17 20:00 77 14 99/67 100 06/29/17 19:00 79 14 96/68 100 06/29/17 18:00 78 18 103/71 100 06/29/17 17:00 87 16 98/64 92 06/29/17 16:00 94 20 92/65 87 06/29/17 15:43 20 90/64 93 06/29/17 15:37 98.5 F 06/29/17 15:00 82 18 80/57 93 06/29/17 13:15 21 81/62 95 06/29/17 13:00 81 15 81/62 94 06/29/17 12:25 98.8 F 06/29/17 12:00 80 15 87/60 94 06/29/17 11:00 78 20 85/62 96 06/29/17 10:00 79 19 83/53 94 Intake and Output 06/29/17 06/30/17 06/30/17 23:59 07:59 15:59 Intake Total 775 / 775 967 / 967 135 / 135 Output Total 700 / 700 1525 / 1525 Balance 75 / 75 -558 / -558 135 / 135 Intake: IV Fluids 650 / 650 904 / 904 PRECEDEX 400 mcg In 100 200 / 200 200 / 200 ml @ 0.3 MCG/KG/HR 10.358 mls/hr IVC .[id number] [facility] Rx#:[id number] FentaNYL (PF) 3,000 MCG 300 / 300 In 0.9 % Sodium Chloride 240 ML @ 100 MCG/HR 10 mls/hr IVC [facility] [place] Rx#: [id number] Versed 50 MG In 0.9 % 100 / 100 100 / 100 Sodium Chloride 90 ML @ 2 MG/HR 4 mls/hr IVC CONT [facility] Rx#:[id number] Levophed 4 MG In Dextrose 250 / 250 5% 250 ML @ 5 MCG/MIN 18 .75 mls/hr IVC CONT [facility] Rx#:[id number] Magnesium Sulfate 2 GM In 104 / 104 Dextrose 5% 100 ML @ 50 mls/hr IVPB Q6H PRN Rx#: [id number] Zosyn 3.375 GM In 100 / 100 Dextrose 5% (Minibag+) 100 ML 100 ML @ 25 mls/hr IVPB Q8H [facility] Rx#: [id number] Potassium Chloride 20 mEq 200 / 200 /100 mL 40 meq In 200 ml @ 100 mls/hr IVPB Q1H PRN Rx#:[id number] Tube Feeding 125 / 125 63 / 63 60 / 60 Free Water Intake Amount 75 / 75 Output: Catheter 700 / 700 1525 / 1525 Other: Weight 122.379 kg Blood Glucose* 162 169 169 Patient Weight 06/30/17 23:59 Weight 122.379 kg - General Appearance Exam: General appearance: Present: obese, chronically ill, intubated via trach, fatigue, frail, anxious EENT: Present: mucous membranes moist Neck: Present: supple, trach noted Respiratory: Present: course breath sounds Cardiology: Present: edema (anasarca from feet to hands), normal S1, normal S2 Dialysis Vascular Access: Venous Catheter (Rt IJ temporary HD catheter with dressing that is C/D/I) Gastrointestinal: Present: normoactive bowel sounds, no tenderness Integumentary: Present: warm and dry Neurologic: Present: no focal deficit, no asterixis Musculoskeletal: Present: no cyanosis, no clubbing Psychiatric: Present: cooperative - Lab 06/30/17 03:30 06/30/17 03:30 Most recent lab results ABG pH 7.36 pH Units (7.32-7.45) 06/30/17 06:35 ABG pCO2 69 mmHg (35-45) H 06/30/17 06:35 ABG pO2 78 mmHg (85-104) L 06/30/17 06:35 ABG HCO3 39.0 mEQ/L (21-27) H 06/30/17 06:35 ABG O2 Saturation 95 % (95-98) 06/30/17 06:35 Calcium 9.1 mg/dL (8.6-10.8) 06/30/17 03:30 Phosphorus 5.0 mg/dL (2.3-4.7) H 06/30/17 03:30 Magnesium 1.6 mg/dL (1.6-2.6) 06/30/17 03:30 Urine Creatinine 88 mg/dL 06/17/17 07:15 Urine Sodium 27.0 mEq/L 06/17/17 07:15 - VTE Documentation of Mechanical Device: Intermittent pneumatic compression device Consult Discharge Plan - Plan Referrals: Mi Warren, [facility] [Advanced Practice Nurse] - (computers are down call back later )
[2017-06-30] MEDS: MILRINONE 20 MG/100 ML IVC SCH (17:06)
[2017-06-30] MEDS ORDERED: Norepinephrine 4 MG in D5% in Water 250 ML IVC SCH (18:45)
[2017-07-01] MEDS: *HR* HYDROmorphone (PF) 1 MG/ML SYRINGE IVP PRN ×2 (00:09→02:45)
[2017-07-01] MEDS: Lacri-Lube 3.5 GM TUBE BOTH EYES SCH ×5 (00:10→15:51)
[2017-07-01] MEDS: Insulin LISPRO 300 UNITS/3 ML VIAL SQ SCH ×5 (00:10→15:52)
[2017-07-01] MEDS: Dexmedetomidine HCl 400 MCG/100 ML MLS IVC SCH ×5 (01:33→20:41)
[2017-07-01 04:06] LABS: Basophils # 0.1 K/mcL (0.0-0.2); Basophils % 0.8 %; Eosinophils # 0.1 K/mcL (0.0-0.6); Eosinophils % 1.1 %; Hematocrit 26.4 % (35.3-44.9); Hemoglobin 7.8 g/dL (11.5-15.4); Immature Granulocytes % 0.6 % (0-4); Lymphocytes % 14.1 %; Mean Corpuscular HGB Conc 29.5 g/dL (31.6-35.5); Mean Corpuscular Hemoglobin 27.9 pg (28.0-33.3); Mean Corpuscular Volume 94.3 fL (83.0-100.0); Mean Platelet Volume 10.7 fL (9.4-12.4); Monocytes # 0.4 K/mcL (0.0-1.3); Monocytes % 6.1 %; Neutrophils # 5.6 K/mcL (1.6-8.9); Platelet Count 404 K/mcL (140-400); Red Cell Distribution Width 17.2 % (11.5-14.5); Segmented Neutrophils % 77.3 %
[2017-07-01 04:11] LABS: ABG Base Excess 11.3 mEq/L (-2.0 to 3.0); ABG HCO3 37.9 mEQ/L (21-27); ABG Oxygen Saturation 94 % (95-98); ABG PCO2 64 mmHg (35-45); ABG PH 7.38 pH Units (7.32-7.45); ABG PO2 74 mmHg (85-104); ABG TCO2 39.9 mEq/L (20-26); Blood Gas FiO2 60 %
[2017-07-01 04:20] LABS: Calcium 8.9 mg/dL (8.6-10.8); Magnesium 1.5 mg/dL (1.6-2.6); Phosphorous 4.8 mg/dL (2.3-4.7); Potassium 3.8 mEq/L (3.5-4.5)
[2017-07-01] MEDS: *HR* Heparin 5,000 UNIT/ML VIAL SQ SCH ×2 (06:04→18:02)
[2017-07-01] MEDS: FentaNYL (PF) 3,000 MCG in 0.9 % Sodium Chloride 240 ML IVC SCH (06:04)
[2017-07-01] MEDS: Potassium Chloride 40 MEQ/200 ML BAG IVPB PRN (06:19)
[2017-07-01] MEDS: Magnesium Sulfate 2 GM in D5% in Water 100 ML IVPB PRN (07:01)
[2017-07-01] MEDS: Furosemide 40 MG/4 ML VIAL IVP SCH ×3 (07:22→16:36)
[2017-07-01] MEDS: Pantoprazole 40 MG VIAL IVP SCH (07:22)
[2017-07-01] MEDS: Nystatin OINT 15 GM TUBE TP SCH ×3 (07:23→16:37)
[2017-07-01] MEDS: Nystatin POWDER 30 GM BOTTLE TP SCH (07:23)
[2017-07-01] MEDS: Docusate Oral Soln 100 MG/10 ML UDC PO SCH (07:39)
[2017-07-01] MEDS: Chlorhexidine Rinse 15 ML MOUTHWASH MM SCH (07:40)
[2017-07-01] MEDS ORDERED: 0.9 % Sodium Chloride 500 ML ONE (07:46)
--- NOTE | 2017-07-01 07:46 | Discharge Summary ---
<Jacek Avitia - Last Filed: 07/01/17 14:39> Date of Encounter: 07/01/17 Time of Encounter: 07:46 - Discharge Diagnosis (1) Acute and chronic respiratory failure Priority: Primary Status: Acute Qualifiers: Respiratory failure complication: hypoxia and hypercapnia Qualified Code(s) : J96.21 - Acute and chronic respiratory failure with hypoxia; J96.22 - Acute and chronic respiratory failure with hypercapnia (2) Acute on chronic renal failure Priority: Primary Status: Acute Qualifiers: Acute renal failure type: unspecified Chronic kidney disease stage: stage 3 (moderate) Qualified Code(s): N17.9 - Acute kidney failure, unspecified; N18.3 - Chronic kidney disease, stage 3 (moderate) (3) Hypotension Priority: Primary Status: Acute Qualifiers: Hypotension type: unspecified hypotension type Qualified Code(s): I95.9 - Hypotension, unspecified (4) Chronic systolic (congestive) heart failure Priority: Secondary Status: Chronic (5) Cor pulmonale Priority: Secondary Status: Chronic (6) Moderate to severe pulmonary hypertension Priority: Secondary Status: Chronic (7) Morbid obesity with BMI of 50.0-59.9, adult Priority: Secondary Status: Chronic (8) SMITA treated with BiPAP Priority: Secondary Status: Chronic (9) Agitation Priority: Secondary Status: Acute - Discharge Medications Home Medications: Tiotropium [Spiriva] 18 mcg IH DAILY #30 inh 04/25/17 [Rx] Albuterol Neb [Proventil Neb] 2.5 mg IH Q6H PRN 05/29/17 [History] Metoprolol [Lopressor] 25 mg PO BID 05/29/17 [History] Potassium Chloride [Klor-Con Sprinkle] 10 meq PO BID 05/29/17 [History] Acetaminophen w/Cod 300-30 mg [Tylenol w/Codeine #3] 1 tab PO Q4HR PRN tab 02/12 [Rx] Bisacodyl [Dulcolax] 10 mg RC DAILY PRN 07/01/17 [Rx] Budesonide/Formoterol 160/4.5 [Symbicort 160/4.5] 2 puff IH BIDR 07/01/17 [Rx] Chlorhexidine Rinse 15 ml MM BID 07/01/17 [Rx] Docusate [Colace] 100 mg PO BID 07/01/17 [Rx] Furosemide [Lasix] 40 mg IVP DAILY@1200 vial 07/01/17 [Rx] Furosemide [Lasix] 80 mg IVP BIDDIURETIC vial 07/01/17 [Rx] HYDROmorphone (PF) [Dilaudid] 1 mg IVP Q1H PRN 07/01/17 [Rx] Heparin 5,000 unit SQ Q12HCO vial 07/01/17 [Rx] Insulin LISPRO [HumaLOG] 0 units SQ Q4H vial 07/01/17 [Rx] Ipratropium/Albuterol Neb [Duoneb] 3 ml IH [id number] PRN inh 07/01/17 [Rx] LORazepam [Ativan] 1 mg IVP Q2HR PRN vial 07/01/17 [Rx] Lacri-Lube [Lacri-lube] 1 appl BOTH EYES Q2HR PRN 07/01/17 [Rx] Lacri-Lube [Lacri-lube] 1 appl BOTH EYES Q4HR 07/01/17 [Rx] Lactulose 20 gm PO BID PRN 07/01/17 [Rx] Metoprolol [Lopressor] 25 mg PO BID tab 07/01/17 [Rx] Naloxone [Narcan] 0.4 mg IVP Q2MIN PRN 07/01/17 [Rx] Nystatin OINT [Mycostatin] 1 appl TP QID 07/01/17 [Rx] Nystatin POWDER [Nystop] 1 appl TP BID bottle 07/01/17 [Rx] Ondansetron [Zofran] 4 mg IVP Q6HR PRN vial 07/01/17 [Rx] Pantoprazole [Protonix] 40 mg IVP DAILY@0730 vial 07/01/17 [Rx] Quetiapine Fumarate [Seroquel] 25 mg PO BID tab 07/01/17 [Rx] Sennosides/Docusate Sodium [Senna Plus] 2 each PO BID PRN tab 07/01/17 [Rx] Sertraline [Zoloft] 50 mg GTUBE DAILY tab 07/01/17 [Rx] clonazePAM [Klonopin] 2 mg PO Q4H PRN tab 07/01/17 [Rx] Allergies/Adverse Reactions: Allergies No Known Allergies Allergy (Verified 05/06/17 00:08) Labs on day of discharge: Labs from last 24 hours 07/01/17 07/01/17 07/01/17 07:36 04:05 03:35 WBC RBC Hgb Hct MCV MCH MCHC RDW Plt Count MPV Immature Gran % Seg Neutrophils % Lymphocytes % Monocytes % Eosinophils % Basophils % Neutrophils # Lymphocytes # Monocytes # Eosinophils # Basophils # ABG pH 7.38 ABG pCO2 64 H ABG pO2 74 L ABG HCO3 37.9 H ABG Total CO2 39.9 H ABG O2 Saturation 94 L ABG Base Excess 11.3 H Blood Gas Modality VC+ Inspired O2 60 Sodium Potassium Chloride Carbon Dioxide BUN Creatinine Est GFR ( Amer) Est GFR (Non-Af Amer) BUN/Creatinine Ratio Glucose POC Glucose 160 H Calculated Osmolality Calcium Phosphorus Magnesium B-Natriuretic Peptide 408 H 07/01/17 07/01/17 06/30/17 03:35 03:35 23:43 WBC 7.2 RBC 2.80 L Hgb 7.8 L Hct 26.4 L MCV 94.3 MCH 27.9 L MCHC 29.5 L RDW 17.2 H Plt Count 404 H MPV 10.7 Immature Gran % 0.6 Seg Neutrophils % 77.3 Lymphocytes % 14.1 Monocytes % 6.1 Eosinophils % 1.1 Basophils % 0.8 Neutrophils # 5.6 Lymphocytes # 1.0 Monocytes # 0.4 Eosinophils # 0.1 Basophils # 0.1 ABG pH ABG pCO2 ABG pO2 ABG HCO3 ABG Total CO2 ABG O2 Saturation ABG Base Excess Blood Gas Modality Inspired O2 Sodium 138 Potassium 3.8 Chloride 94 L Carbon Dioxide 35 H BUN 54 H Creatinine 1.91 H Est GFR ( Amer) 35 L Est GFR (Non-Af Amer) 29 L BUN/Creatinine Ratio 28 H Glucose 168 H POC Glucose 138 H Calculated Osmolality 305 H Calcium 8.9 Phosphorus 4.8 H Magnesium 1.5 L B-Natriuretic Peptide 06/30/17 06/30/17 06/30/17 19:08 15:31 11:20 WBC RBC Hgb Hct MCV MCH MCHC RDW Plt Count MPV Immature Gran % Seg Neutrophils % Lymphocytes % Monocytes % Eosinophils % Basophils % Neutrophils # Lymphocytes # Monocytes # Eosinophils # Basophils # ABG pH ABG pCO2 ABG pO2 ABG HCO3 ABG Total CO2 ABG O2 Saturation ABG Base Excess Blood Gas Modality Inspired O2 Sodium Potassium Chloride Carbon Dioxide BUN Creatinine Est GFR ( Amer) Est GFR (Non-Af Amer) BUN/Creatinine Ratio Glucose POC Glucose 115 H 141 H 157 H Calculated Osmolality Calcium Phosphorus Magnesium B-Natriuretic Peptide - Impressions ITS Impressions Knee X-Ray 05/29/17 09:34 IMPRESSION: No acute osseous abnormality Tiny joint effusion, either posttraumatic or reactive Atherosclerosis. Correlate with clinical risk factors D/ / John Guillaume MD / John Guillaume MD Interpreting Provider: John Guillaume MD Retroperitoneum Ultrasound 05/29/17 12:23 IMPRESSION: No evidence of hydronephrosis. Perihepatic ascites. 1.2 cm left renal cyst. D/ / Avinash Laboy MD / Avinash Laboy MD Interpreting Provider: Avinash Laboy MD Guidance Ultrasound 05/31/17 00:00 IMPRESSION: Successful temporary hemodialysis catheter placement. The catheter tip lies in the distal SVC. D/ / Albino Kaur MD / Albino Kaur MD Interpreting Provider: Albino Kaur MD Insertion Non-Tunneled Catheter 05/31/17 00:00 IMPRESSION: Successful temporary hemodialysis catheter placement. The catheter tip lies in the distal SVC. D/ / Albino Kaur MD / Albino Kaur MD Interpreting Provider: Albino Kaur MD Chest X-Ray 05/31/17 11:30 IMPRESSION: Stable chest with no pneumothorax. D/ / Rylee Boudreaux MD / Rylee Boudreaux MD Interpreting Provider: Rylee Boudreaux MD Chest X-Ray 05/31/17 18:16 IMPRESSION: 1. The newly placed ET tube distal tip is 4 cm above the [place]. 2. The temporary right IJ hemodialysis catheter is appropriately positioned in the SVC. 3. Pulmonary vascular congestion and small pleural effusions, not significantly changed. D/ / Roberto Salgado MD / Roberto Salgado MD Interpreting Provider: Roberto Salgado MD X-Ray 05/31/17 18:37 IMPRESSION: OG tube in place with its tip and side-port in the left upper quadrant most likely in the body of the stomach D/ / Domenico Patel MD / Domenico Patel MD Interpreting Provider: Domenico Patel MD Chest X-Ray 06/02/17 09:43 IMPRESSION: 1. Endotracheal tube tip approximately 5 cm above the [place]. 2. Stable mild effusions with interstitial edema and lower lobe consolidation more prominent on the left. D/ / 06/02/2017 10:56:56 Kojo Reynoso MD / yuki Interpreting Provider: Kojo Reynoso MD Chest CTA 06/04/17 17:34 IMPRESSION: 1. No evidence of pulmonary embolus. 2. Cardiomegaly with findings of acute congestive heart failure evidenced by mild pulmonary edema and small layering bilateral pleural effusions. 3. Enlarged main pulmonary artery as can be seen in the setting of pulmonary arterial hypertension. 4. Moderate ascites. 5. Mild hepatosplenomegaly. 6. Cholelithiasis. 7. Diffuse anasarca. D/ / Ernst Barber MD / Ernst Barber MD Interpreting Provider: Ernst Barber MD Abdomen/Pelvis CT 06/04/17 19:15 IMPRESSION: 1. No evidence of pulmonary embolus. 2. Cardiomegaly with findings of acute congestive heart failure evidenced by mild pulmonary edema and small layering bilateral pleural effusions. 3. Enlarged main pulmonary artery as can be seen in the setting of pulmonary arterial hypertension. 4. Moderate ascites. 5. Mild hepatosplenomegaly. 6. Cholelithiasis. 7. Diffuse anasarca. D/ / Ernst Barber MD / Ernst Barber MD Interpreting Provider: Ernst Barber MD Gallbladder Ultrasound 06/05/17 07:00 IMPRESSION: 1. Cholelithiasis, without sonographic evidence of cholecystitis. 2. Mild hepatomegaly. 3. Mild amount of nonspecific perihepatic ascites, similar to the recent CT study. 4. Obscuration of the pancreas by overlying bowel gas. 5. Normal sonographic appearance of the common bile duct and right kidney. D/ / 06/05/2017 15:10:17 Roberto Richter MD / albert Interpreting Provider: Roberto Richter MD X-Ray 06/05/17 15:15 IMPRESSION: Enteric tube present with tip in the proximal body of the stomach but side port at the level of the gastroesophageal junction. Suggest advancement by [address] side port within the gastric lumen. D/ / 06/05/2017 15:38:10 Ernst Schulte MD / albert Interpreting Provider: Ernst Schulte MD Chest X-Ray 06/05/17 18:46 IMPRESSION: Cardiomegaly and pulmonary venous congestion. Bibasilar opacities are unchanged since comparison examination and likely reflective of partial atelectasis. D/ / 06/05/2017 20:06:01 Kyler Wade MD / earnold Interpreting Provider: Kyler Wade MD X-Ray 06/05/17 18:46 IMPRESSION: Enteric tube coiled in the gastric body. D/ / Brayden Patel MD / Brayden Patel MD Interpreting Provider: Brayden Patel MD Chest X-Ray 06/11/17 08:09 IMPRESSION: 1. Interval extubation with mild improved bilateral medial lower lobe opacities and interstitial edema. 2. No new or progressive consolidative changes. D/ / 06/11/2017 15:25:34 Kojo Reynoso MD / yuki Interpreting Provider: Kojo Reynoso MD Abdomen/Pelvis CT 06/12/17 00:46 IMPRESSION: 1. Mild bibasilar atelectasis versus pneumonia. 2. Cholelithiasis. 3. Cirrhosis with mild ascites. D/ / Tomas Spears MD / Tomas Spears MD Interpreting Provider: Tomas Spears MD Chest X-Ray 06/15/17 08:43 IMPRESSION: Cardiomegaly. Small right pleural effusion with basilar atelectasis and/or consolidation. D/ / Christiano Harrell MD / Christiano Harrell MD Interpreting Provider: Christiano Harrell MD Retroperitoneum Ultrasound 06/15/17 16:00 IMPRESSION: 1. No evidence of hydronephrosis. 2. Perihepatic ascites. D/ / Kati Aldana MD / Kati Aldana MD Interpreting Provider: Kati Aldana MD Chest X-Ray 06/16/17 14:08 IMPRESSION: Left CVC with tip in the distal superior vena cava. No pneumothorax. Mild bibasilar atelectasis. D/ / 06/16/2017 14:55:55 Kojo Reynoso MD / Luz Marina Kyle Interpreting Provider: Kojo Reynoso MD Chest X-Ray 06/16/17 16:43 IMPRESSION: ET tube as described Developing multifocal airspace disease. Pulmonary edema is favored D/ / Iván Gresham / Iván Gresham Interpreting Provider: Iván Gresham X-Ray 06/16/17 16:50 IMPRESSION: Nasogastric tube tip overlies the left upper quadrant, most likely in the gastric fundus. Side hole lies just distal to the gastroesophageal junction. D/ / 06/16/2017 17:11:48 Christiano Harrell MD / yuki Interpreting Provider: Christiano Harrell MD Chest X-Ray 06/17/17 12:13 IMPRESSION: Bilateral airspace disease which may represent pulmonary edema. Small left-sided pleural effusion with probable underlying atelectasis or infiltrate. D/ / Kati Aldana MD / Kati Aldana MD Interpreting Provider: Kati Aldana MD Chest X-Ray 06/22/17 16:06 IMPRESSION: Stable chest. Cardiomegaly. Mild dependent left basilar atelectasis . D/ / Albino Bergman MD / Albino Bergman MD Interpreting Provider: Albino Bergman MD Chest X-Ray 06/23/17 06:00 IMPRESSION: Increased perihilar congestive changes with developing bilateral effusions and bibasilar atelectasis. D/ / Albino Bergman MD / Albino Bergman MD Interpreting Provider: Albino Bergman MD X-Ray 06/23/17 14:45 IMPRESSION: Feeding tube in place with its tip in the body of the stomach D/ / Dmoenico Patel MD / Domenico Patel MD Interpreting Provider: Domenico Patel MD Abdomen/Pelvis CT 06/26/17 10:30 IMPRESSION: 1. Anasarca with extensive subcutaneous edema, small to moderate volume ascites and small bilateral pleural effusions. 2. Cardiomegaly. There are patchy areas of ground-glass attenuation bilaterally which could reflect infection, inflammation or edema. Evaluation of the lungs is otherwise limited due to respiratory motion. 3. Dilated main pulmonary artery suggestive of pulmonary arterial hypertension. There is also prominence of the left hilum most likely related to dilated vessels. 4. Dilated gallbladder with cholelithiasis and gallbladder wall thickening. Findings may represent acute cholecystitis in the appropriate clinical setting. Consider confirmation with HIDA scan. D/ / 06/26/2017 13:07:59 Rylee Boudreaux MD / Luz Marina Kyle Interpreting Provider: Rylee Boudreaux MD Chest CT 06/26/17 11:29 IMPRESSION: 1. Anasarca with extensive subcutaneous edema, small to moderate volume ascites and small bilateral pleural effusions. 2. Cardiomegaly. There are patchy areas of ground-glass attenuation bilaterally which could reflect infection, inflammation or edema. Evaluation of the lungs is otherwise limited due to respiratory motion. 3. Dilated main pulmonary artery suggestive of pulmonary arterial hypertension. There is also prominence of the left hilum most likely related to dilated vessels. 4. Dilated gallbladder with cholelithiasis and gallbladder wall thickening. Findings may represent acute cholecystitis in the appropriate clinical setting. Consider confirmation with HIDA scan. D/ / 06/26/2017 13:07:59 Rylee Boudreaux MD / Luz Marina Kyle Interpreting Provider: Rylee Boudreaux MD Chest X-Ray 06/29/17 04:00 IMPRESSION: Worsening aeration of the lungs suggesting increasing pulmonary edema. D/ / 06/29/2017 07:51:59 David Del Real MD / [facility] [place] Interpreting Provider: David Del Real MD Chest X-Ray 06/30/17 04:00 IMPRESSION: Stable chest. D/ / 06/30/2017 08:27:55 David Del Real MD / [facility] Interpreting Provider: David Del Real MD Date of admission: 05/29/17 09:21 Primary care physician: Sunny Stanley MD Consults: 05/29/17 09:33 Consult to Occupational Therapy [CONS] Routine Comment: Evaluate, develop and implement POC Reason for Consult: Fall Consult to Physical Therapy [CONS] Routine Comment: Evaluate, develop and implement POC Reason for Consult: Fall 05/31/17 08:14 Consult to Nephrology [CONS] Routine Consulting Provider: Kidney Oriana/ADELSO/SAHRA/EMILIE Reason for Consult: please evaluate or worsening BLANCA on CKD with severe pulmonary HTN and RHF. thank you Call Completed: Yes 05/31/17 14:19 Consult to Interventional Radiology [CONS] Stat Consulting Provider: Radiology Interventional Cols Reason for Consult: Temporary dialysis catheter placement. Call Completed: Yes 06/07/17 08:57 Consult to Invasive Line Access Team [CONS] Stat Reason for Consult: limited vasc accesss Line Type: PICC 06/08/17 10:44 Consult to Occupational Therapy [CONS] Routine Comment: Evaluate, develop and implement POC Reason for Consult: deconditioning Consult to Physical Therapy [CONS] Routine Comment: Evaluate, develop and implement POC Reason for Consult: deconditioning Consult to Speech Therapy [CONS] Routine Comment: Evaluate, develop and implement POC Reason for Consult: failed bedside swallow x 2 Call Completed: No 06/09/17 08:23 Consult to Brass Polisher [CONS] Routine Reason for SW Consult: therapy rec swing bed 06/14/17 10:51 Consult to Surgery [CONS] Routine Consulting Provider: Steven Morrissey Reason for Consult: Abdominal pain Call Completed: Yes 06/15/17 13:00 Consult to Nephrology [CONS] Routine Consulting Provider: Avinash Ruiz Reason for Consult: acute on chronic kidney injury Call Completed: Yes 06/16/17 06:21 Consult to Pulmonology [CONS] Routine Consulting Provider: [facility] [place] Reason for Consult: hypercarbia Call Completed: Yes 06/17/17 08:41 Consult to Nutrition [CONS] Routine Comment: Consulting Provider: NUTRITION Reason for Dietary Consult: TF Start and Manage 06/17/17 13:00 Consult to Dialysis [CONS] ONCE 06/18/17 11:45 Consult to Dialysis [CONS] ONCE 06/19/17 12:45 Consult to Dialysis [CONS] ONCE 06/21/17 07:54 Consult to ENT [CONS] Routine Consulting Provider: [facility] [place] Reason for Consult: Possible Trach Call Completed: Yes 06/21/17 10:00 Consult to Dialysis [CONS] ONCE 06/23/17 09:15 Consult to Dialysis [CONS] ONCE 06/24/17 12:15 Consult to Dialysis [CONS] ONCE 06/25/17 10:50 Consult to Brass Polisher [CONS] Routine Reason for SW Consult: placement 06/28/17 13:36 Consult to Occupational Therapy [CONS] Routine Comment: Evaluate, develop and implement POC Reason for Consult: trach dependent, muscle deconditioning Consult to Physical Therapy [CONS] Routine Comment: Evaluate, develop and implement POC Reason for Consult: trach dependent, muscle deconditioning Discharging clinician: Jacek Avitia Anticipated date of discharge: 07/01/17 - Patient Status Disposition: Transfer SNF Condition: Fair Functional capacity at discharge: bed bound Overall status at discharge: patient is progressing back to baseline - Discharge Instructions Follow Up With: Mi Warren, NIGHT COORDINATOR [Advanced Practice Nurse] - (computers are down call back later ) - Diet and Activity Activity: other (restrict to bed with PT/OT) Diet: other (enteric feedings) - Hospital Course Hospital course: Ms. Corbett is a 46 year old female with history of morbid obesity, obesity hypoventilation syndrome, cor pulmonale with severe right-sided heart failure has been in the hospital since 05/29/17. She originally presented to the hospital due to acute on chronic renal failure secondary to rhabdomyolysis after fall. Kidney function declined during stay and the patient was on intermittent hemodialysis and ultrafiltration. She has a right IJ hemodialysis catheter placed. However, she is now having good UOP aysha with diuresis. Patient is now on IV Lasix 80 mg in the morning and at night with an afternoon dose of 40 mg. She still has residual bilateral lower extremity edema and some mild to moderate pulmonary edema. This is slowly improving with diuresis. Nephrology was consulted and have suggested that the patient continue with diuresis and do not feel that the patient is stable for hemodialysis at this time due to history of having very rapid evidence of hypotension during dialysis. She is currently on norepinephrine at 3 mcg/h. This is currently being titrated down. Patient was on milrinone during her stay as well but this has been discontinued. Blood pressures are chronically low, baseline is near 80s over 50s. Right IJ dialysis catheter will be left in at discharge in case it is needed for dialysis, however, this is recommended to be removed by [facility] care facility in 2-3 days if not used. During her stay, she also developed acute on chronic respiratory failure. She was trialed on BiPAP during her stay but eventually required intubation due to worsening hypercapnic respiratory failure. Patient had tracheostomy placed. Due to no inner cannula for signs 5 trach at the hospital, she was scheduled to have trach replacement. However, ENT feels that due to to patient's status on vasopressors, she does not recommend changing out the trach piece at this time. She would recommend the trach be replaced in 2 weeks after placement date. This can be done here at [place], or if patient is in extended care facility, this could be consulted to ENT in [place]. Currently, FiO2 is a 60%, PEEP is at 8. She is tolerating this well with stable O2 sats in mid 90s. Patient was also found to have cholecystitis and was placed on zosyn due to not being a surgical candidate. This medication was finished today. Dobbhoff has been placed. Tolerating enteric feeds well. Throughout her stay, patient's agitation has been treated with Klonopin 2 mg every 4 hours when necessary, Seroquel, Tylenol 3 for pain control and Dilaudid Linda as needed along with continuous panel drip. She was also started on sertraline 50 mg daily yesterday for anxiety. Patient will be transferred to [facility] in [place], [place] on [address]. - Time Spent with Patient Total time spent providing and/or coordinating discharge services: Physical Examination Vital Signs: Vital Signs, Last 4 Hours Temp Pulse Resp BP Pulse Ox 07/01/17 07:00 90 15 86/56 95 07/01/17 06:00 81 15 87/61 95 07/01/17 05:00 77 15 89/59 97 07/01/17 04:00 98.5 F 81 15 81/56 96 07/01/17 03:54 15 73/56 96 General appearance: no acute distress, alert Eyes: nonicteric ENT: oropharynx moist Neck: supple Effort: normal, other (on ventiallator assistance via trach) Auscultation: bilateral: clear Cardiovascular: regular rate and rhythm Gastrointestinal: normoactive bowel sounds, soft, non-tender, non-distended Integumentary: normal Extremities: no cyanosis, edema (Pitting bilateral lower extremities) Musculoskeletal: no deformities Gait: other (Unable to assess due to patient being bedbound) normal mental status, non-focal exam, pupils equal and round mood appropriate, affect normal - VTE Documentation of Mechanical Device: Intermittent pneumatic compression device <Rebecca Hernandez - Last Filed: 07/01/17 17:02> Date of Encounter: 07/01/17 Labs on day of discharge: Labs from last 24 hours 07/01/17 07/01/17 07/01/17 15:13 11:26 07:36 WBC RBC Hgb Hct MCV MCH MCHC RDW Plt Count MPV Immature Gran % Seg Neutrophils % Lymphocytes % Monocytes % Eosinophils % Basophils % Neutrophils # Lymphocytes # Monocytes # Eosinophils # Basophils # ABG pH ABG pCO2 ABG pO2 ABG HCO3 ABG Total CO2 ABG O2 Saturation ABG Base Excess Blood Gas Modality Inspired O2 Sodium Potassium Chloride Carbon Dioxide BUN Creatinine Est GFR ( Amer) Est GFR (Non-Af Amer) BUN/Creatinine Ratio Glucose POC Glucose 165 H 132 H 160 H Calculated Osmolality Calcium Phosphorus Magnesium B-Natriuretic Peptide 07/01/17 07/01/17 07/01/17 04:05 03:35 03:35 WBC RBC Hgb Hct MCV MCH MCHC RDW Plt Count MPV Immature Gran % Seg Neutrophils % Lymphocytes % Monocytes % Eosinophils % Basophils % Neutrophils # Lymphocytes # Monocytes # Eosinophils # Basophils # ABG pH 7.38 ABG pCO2 64 H ABG pO2 74 L ABG HCO3 37.9 H ABG Total CO2 39.9 H ABG O2 Saturation 94 L ABG Base Excess 11.3 H Blood Gas Modality VC+ Inspired O2 60 Sodium 138 Potassium 3.8 Chloride 94 L Carbon Dioxide 35 H BUN 54 H Creatinine 1.91 H Est GFR ( Amer) 35 L Est GFR (Non-Af Amer) 29 L BUN/Creatinine Ratio 28 H Glucose 168 H POC Glucose Calculated Osmolality 305 H Calcium 8.9 Phosphorus 4.8 H Magnesium 1.5 L B-Natriuretic Peptide 408 H 07/01/17 06/30/17 06/30/17 03:35 23:43 19:08 WBC 7.2 RBC 2.80 L Hgb 7.8 L Hct 26.4 L MCV 94.3 MCH 27.9 L MCHC 29.5 L RDW 17.2 H Plt Count 404 H MPV 10.7 Immature Gran % 0.6 Seg Neutrophils % 77.3 Lymphocytes % 14.1 Monocytes % 6.1 Eosinophils % 1.1 Basophils % 0.8 Neutrophils # 5.6 Lymphocytes # 1.0 Monocytes # 0.4 Eosinophils # 0.1 Basophils # 0.1 ABG pH ABG pCO2 ABG pO2 ABG HCO3 ABG Total CO2 ABG O2 Saturation ABG Base Excess Blood Gas Modality Inspired O2 Sodium Potassium Chloride Carbon Dioxide BUN Creatinine Est GFR ( Amer) Est GFR (Non-Af Amer) BUN/Creatinine Ratio Glucose POC Glucose 138 H 115 H Calculated Osmolality Calcium Phosphorus Magnesium B-Natriuretic Peptide - Impressions ITS Impressions Knee X-Ray 05/29/17 09:34 IMPRESSION: No acute osseous abnormality Tiny joint effusion, either posttraumatic or reactive Atherosclerosis. Correlate with clinical risk factors D/ / John Guillaume MD / John Guillaume MD Interpreting Provider: John Guillaume MD Retroperitoneum Ultrasound 05/29/17 12:23 IMPRESSION: No evidence of hydronephrosis. Perihepatic ascites. 1.2 cm left renal cyst. D/ / Avinash Laboy MD / Avinash Laboy MD Interpreting Provider: Avinash Laboy MD Guidance Ultrasound 05/31/17 00:00 IMPRESSION: Successful temporary hemodialysis catheter placement. The catheter tip lies in the distal SVC. D/ / Albino Kaur MD / Albino Kaur MD Interpreting Provider: Albino Kaur MD Insertion Non-Tunneled Catheter 05/31/17 00:00 IMPRESSION: Successful temporary hemodialysis catheter placement. The catheter tip lies in the distal SVC. D/ / Albino Kaur MD / Albino Kaur MD Interpreting Provider: Albino Kaur MD Chest X-Ray 05/31/17 11:30 IMPRESSION: Stable chest with no pneumothorax. D/ / Rylee Boudreaux MD / Rylee Boudreaux MD Interpreting Provider: Rylee Boudreaux MD Chest X-Ray 05/31/17 18:16 IMPRESSION: 1. The newly placed ET tube distal tip is 4 cm above the [place]. 2. The temporary right IJ hemodialysis catheter is appropriately positioned in the SVC. 3. Pulmonary vascular congestion and small pleural effusions, not significantly changed. D/ / Roberto Salgado MD / Roberto Salgado MD Interpreting Provider: Roberto Salgado MD X-Ray 05/31/17 18:37 IMPRESSION: OG tube in place with its tip and side-port in the left upper quadrant most likely in the body of the stomach D/ / Domenico Patel MD / Domenico Patel MD Interpreting Provider: Domenico Patel MD Chest X-Ray 06/02/17 09:43 IMPRESSION: 1. Endotracheal tube tip approximately 5 cm above the [place]. 2. Stable mild effusions with interstitial edema and lower lobe consolidation more prominent on the left. D/ / 06/02/2017 10:56:56 Kojo Reynoso MD / yuki Interpreting Provider: Kooj Reynoso MD Chest CTA 06/04/17 17:34 IMPRESSION: 1. No evidence of pulmonary embolus. 2. Cardiomegaly with findings of acute congestive heart failure evidenced by mild pulmonary edema and small layering bilateral pleural effusions. 3. Enlarged main pulmonary artery as can be seen in the setting of pulmonary arterial hypertension. 4. Moderate ascites. 5. Mild hepatosplenomegaly. 6. Cholelithiasis. 7. Diffuse anasarca. D/ / Ernst Barber MD / Ernst Barber MD Interpreting Provider: Ernst Barber MD Abdomen/Pelvis CT 06/04/17 19:15 IMPRESSION: 1. No evidence of pulmonary embolus. 2. Cardiomegaly with findings of acute congestive heart failure evidenced by mild pulmonary edema and small layering bilateral pleural effusions. 3. Enlarged main pulmonary artery as can be seen in the setting of pulmonary arterial hypertension. 4. Moderate ascites. 5. Mild hepatosplenomegaly. 6. Cholelithiasis. 7. Diffuse anasarca. D/ / Ernst Barber MD / Ernst Barber MD Interpreting Provider: Ernst Barber MD Gallbladder Ultrasound 06/05/17 07:00 IMPRESSION: 1. Cholelithiasis, without sonographic evidence of cholecystitis. 2. Mild hepatomegaly. 3. Mild amount of nonspecific perihepatic ascites, similar to the recent CT study. 4. Obscuration of the pancreas by overlying bowel gas. 5. Normal sonographic appearance of the common bile duct and right kidney. D/ / 06/05/2017 15:10:17 Roberto Richter MD / albert Interpreting Provider: Roberto Richter MD X-Ray 06/05/17 15:15 IMPRESSION: Enteric tube present with tip in the proximal body of the stomach but side port at the level of the gastroesophageal junction. Suggest advancement by [address] side port within the gastric lumen. D/ / 06/05/2017 15:38:10 Ernst Schulte MD / albert Interpreting Provider: Ernst Schulte MD Chest X-Ray 06/05/17 18:46 IMPRESSION: Cardiomegaly and pulmonary venous congestion. Bibasilar opacities are unchanged since comparison examination and likely reflective of partial atelectasis. D/ / 06/05/2017 20:06:01 Kyler Wade MD / [facility] Inter[facility]ting Provider: Kyler Wade MD X-Ray 06/05/17 18:46 IMPRESSION: Enteric tube coiled in the gastric body. D/ / Brayden Patel MD / Brayden Patel MD Interpreting Provider: Brayden Patel MD Chest X-Ray 06/11/17 08:09 IMPRESSION: 1. Interval extubation with mild improved bilateral medial lower lobe opacities and interstitial edema. 2. No new or progressive consolidative changes. D/ / 06/11/2017 15:25:34 Kojo Reynoso MD / yuki Interpreting Provider: Kojo Reynoso MD Abdomen/Pelvis CT 06/12/17 00:46 IMPRESSION: 1. Mild bibasilar atelectasis versus pneumonia. 2. Cholelithiasis. 3. Cirrhosis with mild ascites. D/ / Tomas Spears MD / Tomas Spears MD Interpreting Provider: Tomas Spears MD Chest X-Ray 06/15/17 08:43 IMPRESSION: Cardiomegaly. Small right pleural effusion with basilar atelectasis and/or consolidation. D/ / Christiano Harrell MD / Christiano Harrell MD Interpreting Provider: Christiano Harrell MD Retroperitoneum Ultrasound 06/15/17 16:00 IMPRESSION: 1. No evidence of hydronephrosis. 2. Perihepatic ascites. D/ / Kati Aldana MD / Kati Aldana MD Interpreting Provider: Kati Aladna MD Chest X-Ray 06/16/17 14:08 IMPRESSION: Left CVC with tip in the distal superior vena cava. No pneumothorax. Mild bibasilar atelectasis. D/ / 06/16/2017 14:55:55 Kojo Reyonso MD / Luz Marina Kyle Interpreting Provider: Kojo Reynoso MD Chest X-Ray 06/16/17 16:43 IMPRESSION: ET tube as described Developing multifocal airspace disease. Pulmonary edema is favored D/ / Iván Gresham / Iván Gresham Interpreting Provider: Iván Gresham X-Ray 06/16/17 16:50 IMPRESSION: Nasogastric tube tip overlies the left upper quadrant, most likely in the gastric fundus. Side hole lies just distal to the gastroesophageal junction. D/ / 06/16/2017 17:11:48 Christiano Harrell MD / yuki Interpreting Provider: Christiano Harrell MD Chest X-Ray 06/17/17 12:13 IMPRESSION: Bilateral airspace disease which may represent pulmonary edema. Small left-sided pleural effusion with probable underlying atelectasis or infiltrate. D/ / Kati Aldana MD / Kati Aldana MD Interpreting Provider: Kati Aldana MD Chest X-Ray 06/22/17 16:06 IMPRESSION: Stable chest. Cardiomegaly. Mild dependent left basilar atelectasis . D/ / Albino Bergman MD / Albino Bergman MD Interpreting Provider: Albino Bergman MD Chest X-Ray 06/23/17 06:00 IMPRESSION: Increased perihilar congestive changes with developing bilateral effusions and bibasilar atelectasis. D/ / Albino Bergman MD / Albino Bergman MD Interpreting Provider: Albino Bergman MD X-Ray 06/23/17 14:45 IMPRESSION: Feeding tube in place with its tip in the body of the stomach D/ / Domenico Patel MD / Domenico Patel MD Interpreting Provider: Domenico Patel MD Abdomen/Pelvis CT 06/26/17 10:30 IMPRESSION: 1. Anasarca with extensive subcutaneous edema, small to moderate volume ascites and small bilateral pleural effusions. 2. Cardiomegaly. There are patchy areas of ground-glass attenuation bilaterally which could reflect infection, inflammation or edema. Evaluation of the lungs is otherwise limited due to respiratory motion. 3. Dilated main pulmonary artery suggestive of pulmonary arterial hypertension. There is also prominence of the left hilum most likely related to dilated vessels. 4. Dilated gallbladder with cholelithiasis and gallbladder wall thickening. Findings may represent acute cholecystitis in the appropriate clinical setting. Consider confirmation with HIDA scan. D/ / 06/26/2017 13:07:59 Rylee Boudreaux MD / Lu[facility] Kyle Interpreting Provider: Rylee Boudreaux MD Chest CT 06/26/17 11:29 IMPRESSION: 1. Anasarca with extensive subcutaneous edema, small to moderate volume ascites and small bilateral pleural effusions. 2. Cardiomegaly. There are patchy areas of ground-glass attenuation bilaterally which could reflect infection, inflammation or edema. Evaluation of the lungs is otherwise limited due to respiratory motion. 3. Dilated main pulmonary artery suggestive of pulmonary arterial hypertension. There is also prominence of the left hilum most likely related to dilated vessels. 4. Dilated gallbladder with cholelithiasis and gallbladder wall thickening. Findings may represent acute cholecystitis in the appropriate clinical setting. Consider confirmation with HIDA scan. D/ / 06/26/2017 13:07:59 Rylee Boudreaux MD / Luz Marina Kyle Interpreting Provider: Rylee Boudreaux MD Chest X-Ray 06/29/17 04:00 IMPRESSION: Worsening aeration of the lungs suggesting increasing pulmonary edema. D/ / 06/29/2017 07:51:59 David Del Real MD / miguel ángel Interpreting Provider: David Del Real MD Chest X-Ray 06/30/17 04:00 IMPRESSION: Stable chest. D/ / 06/30/2017 08:27:55 David Del [facility] MD [facility] Interpreting Provider: David Del Real MD Date of admission: 05/29/17 09:21 Primary care physician: Sunny Stanley MD Consults: 05/29/17 09:33 Consult to Occupational Therapy [CONS] Routine Comment: Evaluate, develop and implement POC Reason for Consult: Fall Consult to Physical Therapy [CONS] Routine Comment: Evaluate, develop and implement POC Reason for Consult: Fall 05/31/17 08:14 Consult to Nephrology [CONS] Routine Consulting Provider: Kidney Oriana/ADELSO/SAHRA/EMILIE Reason for Consult: please evaluate or worsening BLANCA on CKD with severe pulmonary HTN and RHF. thank you Call Completed: Yes 05/31/17 14:19 Consult to Interventional Radiology [CONS] Stat Consulting Provider: Radiology Interventional Cols Reason for Consult: Temporary dialysis catheter placement. Call Completed: Yes 06/07/17 08:57 Consult to Invasive Line Access Team [CONS] Stat Reason for Consult: limited vasc accesss Line Type: PICC 06/08/17 10:44 Consult to Occupational Therapy [CONS] Routine Comment: Evaluate, develop and implement POC Reason for Consult: deconditioning Consult to Physical Therapy [CONS] Routine Comment: Evaluate, develop and implement POC Reason for Consult: deconditioning Consult to Speech Therapy [CONS] Routine Comment: Evaluate, develop and implement POC Reason for Consult: failed bedside swallow x 2 Call Completed: No 06/09/17 08:23 Consult to Brass Polisher [CONS] Routine Reason for SW Consult: therapy rec swing bed 06/14/17 10:51 Consult to Surgery [CONS] Routine Consulting Provider: Steven Morrissey Reason for Consult: Abdominal pain Call Completed: Yes 06/15/17 13:00 Consult to Nephrology [CONS] Routine Consulting Provider: Avinash Ruiz Reason for Consult: acute on chronic kidney injury Call Completed: Yes 06/16/17 06:21 Consult to Pulmonology [CONS] Routine Consulting Provider: [facility] [place] Reason for Consult: hypercarbia Call Completed: Yes 06/17/17 08:41 Consult to Nutrition [CONS] Routine Comment: Consulting Provider: NUTRITION Reason for Dietary Consult: TF Start and Manage 06/17/17 13:00 Consult to Dialysis [CONS] ONCE 06/18/17 11:45 Consult to Dialysis [CONS] ONCE 06/19/17 12:45 Consult to Dialysis [CONS] ONCE 06/21/17 07:54 Consult to ENT [CONS] Routine Consulting Provider: [facility] [place] Reason for Consult: Possible Trach Call Completed: Yes 06/21/17 10:00 Consult to Dialysis [CONS] ONCE 06/23/17 09:15 Consult to Dialysis [CONS] ONCE 06/24/17 12:15 Consult to Dialysis [CONS] ONCE 06/25/17 10:50 Consult to Brass Polisher [CONS] Routine Reason for SW Consult: placement 06/28/17 13:36 Consult to Occupational Therapy [CONS] Routine Comment: Evaluate, develop and implement POC Reason for Consult: trach dependent, muscle deconditioning Consult to Physical Therapy [CONS] Routine Comment: Evaluate, develop and implement POC Reason for Consult: trach dependent, muscle deconditioning - Hospital Course Hospital course: Ms. Corbett is a 46 year old female - Time Spent with Patient Total time spent providing and/or coordinating discharge services: Physical Examination Vital Signs: Vital Signs, Last 4 Hours Temp Pulse Resp BP Pulse Ox 07/01/17 16:29 15 98 07/01/17 16:12 98.5 F 07/01/17 16:00 71 15 96/64 98 07/01/17 15:00 74 15 92/59 98 07/01/17 14:00 79 15 90/57 98 07/01/17 13:50 15 98 07/01/17 13:00 89 15 93/63 99 - Attending Attestation I examined this patient and my medical decision-making was reviewed with the Resident Physician. I agree with the documented findings, disposition and treatment plan as described except to the extent set forth below. Patient seen and examined. Labs, radiology, chart personally reviewed. 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 Patient people and FiO2 was increased due to hypoxia which is most likely secondary to atelectasis as well as pulmonary edema and to continue diuresis. ENT follow-up is necessary regarding her tracheostomy. Cardiovascular: Patient is still requiring low dose Levophed for blood pressure support and hopefully that can be weaned off. I still feel patient needed to be evaluated for heart failure in the future due to her age and may need a device to support her heart failure. Optimizing Treatment. GI: Nutrition per dietary and GI prophylaxis per routine. She is tolerating to feet at this time and she might need a PEG tube in the future when she is hemodynamically stable Heme: DVT prophylaxis per routine ID: Continue antibiotics and plan to de-escalation Renal; urine out put and renal funtion reviewed Endorcine: blood glucose is monitored Lines: all lines checked and no evidence of infections Skin: skin care to prevent pressure ulcers per nursing routine care About 50 minutes spent for arrangement for discharge and transfer this patient
--- NOTE | 2017-07-01 07:48 | Physician Discharge Referral ---
<Jacek Avitia - Last Filed: 07/01/17 14:39> ExtendedCare Referral Info Transfer To: [facility] in [facility] ([address] location) Provider in Charge: Dr. Hernandez Provider in Charge after Transfer: PCP, Other (PCP at [facility]) Institutional Level of Care: Skilled - Diagnosis (1) Acute and chronic respiratory failure Priority: Primary Status: Acute (2) Acute on chronic renal failure Priority: Primary Status: Acute (3) Hypotension Priority: Primary Status: Acute (4) Chronic systolic (congestive) heart failure Priority: Secondary Status: Chronic (5) Cor pulmonale Priority: Secondary Status: Chronic (6) Moderate to severe pulmonary hypertension Priority: Secondary Status: Chronic (7) Morbid obesity with BMI of 50.0-59.9, adult Priority: Secondary Status: Chronic (8) SMITA treated with BiPAP Priority: Secondary Status: Chronic (9) Agitation Priority: Secondary Status: Acute Prognosis: Fair Aware of Diagnosis: Patient, Family Aware of Prognosis: Patient, Family - Transfer Medications Home Medications: Tiotropium [Spiriva] 18 mcg IH DAILY #30 inh 04/25/17 [Rx] Albuterol Neb [Proventil Neb] 2.5 mg IH Q6H PRN 05/29/17 [History] Metoprolol [Lopressor] 25 mg PO BID 05/29/17 [History] Potassium Chloride [Klor-Con Sprinkle] 10 meq PO BID 05/29/17 [History] Acetaminophen w/Cod 300-30 mg [Tylenol w/Codeine #3] 1 tab PO Q4HR PRN tab 02/12 [Rx] Bisacodyl [Dulcolax] 10 mg RC DAILY PRN 07/01/17 [Rx] Budesonide/Formoterol 160/4.5 [Symbicort 160/4.5] 2 puff IH BIDR 07/01/17 [Rx] Chlorhexidine Rinse 15 ml MM BID 07/01/17 [Rx] Docusate [Colace] 100 mg PO BID 07/01/17 [Rx] Furosemide [Lasix] 40 mg IVP DAILY@1200 vial 07/01/17 [Rx] Furosemide [Lasix] 80 mg IVP BIDDIURETIC vial 07/01/17 [Rx] HYDROmorphone (PF) [Dilaudid] 1 mg IVP Q1H PRN 07/01/17 [Rx] Heparin 5,000 unit SQ Q12HCO vial 07/01/17 [Rx] Insulin LISPRO [HumaLOG] 0 units SQ Q4H vial 07/01/17 [Rx] Ipratropium/Albuterol Neb [Duoneb] 3 ml IH [id number] PRN inh 07/01/17 [Rx] LORazepam [Ativan] 1 mg IVP Q2HR PRN vial 07/01/17 [Rx] Lacri-Lube [Lacri-lube] 1 appl BOTH EYES Q2HR PRN 07/01/17 [Rx] Lacri-Lube [Lacri-lube] 1 appl BOTH EYES Q4HR 07/01/17 [Rx] Lactulose 20 gm PO BID PRN 07/01/17 [Rx] Metoprolol [Lopressor] 25 mg PO BID tab 07/01/17 [Rx] Naloxone [Narcan] 0.4 mg IVP Q2MIN PRN 07/01/17 [Rx] Nystatin OINT [Mycostatin] 1 appl TP QID 07/01/17 [Rx] Nystatin POWDER [Nystop] 1 appl TP BID bottle 07/01/17 [Rx] Ondansetron [Zofran] 4 mg IVP Q6HR PRN vial 07/01/17 [Rx] Pantoprazole [Protonix] 40 mg IVP DAILY@0730 vial 07/01/17 [Rx] Quetiapine Fumarate [Seroquel] 25 mg PO BID tab 07/01/17 [Rx] Sennosides/Docusate Sodium [Senna Plus] 2 each PO BID PRN tab 07/01/17 [Rx] Sertraline [Zoloft] 50 mg GTUBE DAILY tab 07/01/17 [Rx] clonazePAM [Klonopin] 2 mg PO Q4H PRN tab 07/01/17 [Rx] Allergies/Adverse Reactions: Allergies No Known Allergies Allergy (Verified 05/06/17 00:08) - Respiratory Orders Other (Ventilator: VC+ rate 15, 450ml volume, 60% Fio2, 8 PEEP; 5XLT trach) Smoking Cessation: Smoking cessation has been advised. For more information, call the [place] Tobacco Quit Line at 8-019-OLOD-NOW. - Lab Orders Lab Orders: 2 Step Mantoux Test per State regulation - Ancillary Orders May use pressure relief devices daily prn, May consult with Dentist, Professor Of Archaeology, Quiller Machine Fixer PRN - Advance Directives Living Will: No Power of Supervisor Agency Appointments: No Code Status: Full Code - Mobility Orders Bedrest - Rehabiliation Orders Rehab Potential: Fair Rehab Orders: Evaluation for Physical Therapy, Evaluation for Occupational Therapy - Treatments List/Other: Levophed drip titration goal of MAP 60. Currently levophed is off. Fentanyl drip for pain control, currently at 150mcg/hr Versed drip for sedation, currently at 3mg/hr Precedex for agitation, currently at 0.7 mcg/kg/hr Remove right IJ dialysis catheter in 2-3 days if not used for dialysis. - Diet Orders Tube Feedings (type/amount/rate): Vital at 15ml/hr CERTIFICATION: I certify that the transfer of the above named patient to an Extended Care Facility is necessary for the continuing treatment of the diagnosis listed. The above information is true and accurate reflection of patient's current condition. Confidential - Redisclosure prohibited without a patient's written consent. <Rebecca Hernandez M - Last Filed: 07/01/17 16:57> - Respiratory Orders Smoking Cessation: Smoking cessation has been advised. For more information, call the [place] Tobacco Quit Line at 1-969-SFENNOW. CERTIFICATION: I certify that the transfer of the above named patient to an Extended Care Facility is necessary for the continuing treatment of the diagnosis listed. The above information is true and accurate reflection of patient's current condition. Confidential - Redisclosure prohibited without a patient's written consent. I examined this patient and my medical decision-making was reviewed with the Resident Physician. I agree with the documented findings, disposition and treatment plan as described except to the extent set forth below. Patient with significant comorbidities and still requiring low dose vasopressor for her hemodynamic instability. I am hoping as she gets better that will be weaned off. Dialysis catheter can be removed in 2-3 days if still no need for dialysis and tolerates diuresis. She might need to be evaluated for heart failure and further management in the future. ENT to evaluate her tracheostomy.
[2017-07-01] MEDS: Budesonide/Formoterol 160/4.5 MDI IH SCH ×2 (07:51→20:06)
[2017-07-01] MEDS ORDERED: Piperacillin/Tazobactam 3.375 GM in D5% in Water (Mini-Bag+) 100 ML IVPB SCH (08:00)
--- NOTE | 2017-07-01 10:12 | Nephrology Progress Note ---
Date of Encounter: 07/01/17 Time of Encounter: 09:05 - Assessment and Plan (1) BLANCA (acute kidney injury) Current Visit: Yes Status: Acute SCr is stable if not slightly better. Continue IV diuretics to help maintain her volume status, but her SCr should monitored frequently at the SNF to help ensure that the IV lasix is safe to continue. Eventually she'll have to convert to oral diuretics. Before discharge the temporary HD catheter should be removed. Meanwhile continue to follow a renal protective / supportive strategy. Avoid IV contrast, if able. Strict I/Os, daily weights. Avoid other nephrotoxin exposures. Discussed with the ICU team. When ever she reaches an outpatient setting, I would be happy to see her for nephrology follow up in my clinic in [place], [place]. Thank you. (2) Acute and chronic respiratory failure Current Visit: Yes Status: Acute As per primary. S/p trach. As per Primary Qualifiers: Respiratory failure complication: hypoxia and hypercapnia Qualified Code(s) : J96.21 - Acute and chronic respiratory failure with hypoxia; J96.22 - Acute and chronic respiratory failure with hypercapnia (3) Cor pulmonale Current Visit: Yes Status: Chronic Diuretics to focus on improving her volume status. (4) Edema Current Visit: Yes Status: Chronic See above. 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 (6) Anasarca Current Visit: Yes Status: Acute See above Subjective Principal diagnosis: Respiratory insufficiency Interval history: Pt was seen/examined while in the ICU. She remains intubated: thus limiting subjective history. I discussed her vitals, labs, I/Os with the VP SOFTWARE SUPPORT. No acute events overnight and making great UOP, as discussed with the VP SOFTWARE SUPPORT. She is preparing to discharge to a SNF. Objective - Vital Signs Vital signs: Vital Signs Temp Pulse Resp BP Pulse Ox 07/01/17 10:00 82 15 76/46 98 07/01/17 09:20 16 96 07/01/17 09:00 80 23 81/53 94 07/01/17 08:00 80 16 78/52 96 07/01/17 07:52 96 07/01/17 07:48 98.6 F 07/01/17 07:00 90 15 86/56 95 07/01/17 06:00 81 15 87/61 95 07/01/17 05:00 77 15 89/59 97 07/01/17 04:00 98.5 F 81 15 81/56 96 07/01/17 03:54 15 73/56 96 07/01/17 03:00 86 16 92/54 95 07/01/17 02:28 16 92/57 97 07/01/17 02:00 78 15 92/57 96 07/01/17 01:00 81 15 102/69 97 07/01/17 00:00 98.9 F 81 15 100/65 97 06/30/17 23:55 76 06/30/17 23:35 15 106/71 98 06/30/17 23:00 76 15 99/67 98 06/30/17 22:05 15 100/65 98 06/30/17 22:00 74 16 100/65 98 06/30/17 21:00 98.6 F 75 17 106/71 98 06/30/17 20:00 98.6 F 75 15 97/65 99 06/30/17 19:42 15 95/63 99 06/30/17 19:00 78 16 92/63 98 06/30/17 18:00 79 16 104/71 98 06/30/17 17:00 89 15 90/61 95 06/30/17 16:00 86 17 98/64 96 06/30/17 15:53 86 06/30/17 15:47 15 98/74 96 06/30/17 15:00 99.1 F 113 18 105/78 93 06/30/17 14:00 75 16 76/56 98 06/30/17 13:00 75 15 93/62 96 06/30/17 12:00 98.5 F 80 15 93/61 96 06/30/17 11:22 15 90/59 97 06/30/17 11:00 82 15 90/59 96 Intake and Output 06/30/17 07/01/17 07/01/17 23:59 07:59 15:59 Intake Total 662 / 662 567 / 567 75 / 75 Output Total 1200 / 1200 1050 / 1050 Balance -538 / -538 -483 / -483 75 / 75 Intake: IV Fluids 550 / 550 515 / 515 0 / 0 PRECEDEX 400 mcg In 100 200 / 200 200 / 200 ml @ 0.3 MCG/KG/HR 10.358 mls/hr IVC .[id number] [place] Rx#:[id number] FentaNYL (PF) 3,000 MCG 250 / 250 300 / 300 In 0.9 % Sodium Chloride 240 ML @ 100 MCG/HR 10 mls/hr IVC CONT [place] Rx#: [id number] Versed 50 MG In 0.9 % 100 / 100 Sodium Chloride 90 ML @ 2 MG/HR 4 mls/hr IVC CONT [place] Rx#:[id number] Levophed 4 MG In Dextrose 15 / 15 0 / 0 5% 250 ML @ 5 MCG/MIN 19 .05 mls/hr IVC CONT [place] Rx#:[id number] Tube Feeding 112 / 112 52 / 52 Free Water Intake Amount 75 / 75 Output: Catheter 1200 / 1200 1050 / 1050 Other: Stool Size Smear Stool Consistency liquid Stool Color Brown Yellow # Bowel Movements 1 Weight 128.14 kg Blood Glucose* 115 160 160 Patient Weight 07/01/17 23:59 Weight 128.14 kg - General Appearance Exam: General appearance: Present: obese, chronically ill, intubated via trach, fatigue, frail, anxious EENT: Present: mucous membranes moist Neck: Present: supple, trach noted Respiratory: Present: course breath sounds Cardiology: Present: edema (anasarca from feet to hands), normal S1, normal S2 Dialysis Vascular Access: Venous Catheter (Rt IJ temporary HD catheter with dressing that is C/D/I) Gastrointestinal: Present: normoactive bowel sounds, no tenderness Integumentary: Present: warm and dry Neurologic: Present: no focal deficit, no asterixis Musculoskeletal: Present: no cyanosis, no clubbing Psychiatric: Present: cooperative - Lab 07/01/17 03:35 07/01/17 03:35 Most recent lab results ABG pH 7.38 pH Units (7.32-7.45) 07/01/17 04:05 ABG pCO2 64 mmHg (35-45) H 07/01/17 04:05 ABG pO2 74 mmHg (85-104) L 07/01/17 04:05 ABG HCO3 37.9 mEQ/L (21-27) H 07/01/17 04:05 ABG O2 Saturation 94 % (95-98) L 07/01/17 04:05 Calcium 8.9 mg/dL (8.6-10.8) 07/01/17 03:35 Phosphorus 4.8 mg/dL (2.3-4.7) H 07/01/17 03:35 Magnesium 1.5 mg/dL (1.6-2.6) L 07/01/17 03:35 Urine Creatinine 88 mg/dL 06/17/17 07:15 Urine Sodium 27.0 mEq/L 06/17/17 07:15 - VTE Documentation of Mechanical Device: Intermittent pneumatic compression device Consult Discharge Plan - Plan Referrals: Mi Warren, [employer] IN[employer]ER [Advanced Practice Nurse] - (computers are down call back later )
--- NOTE | 2017-07-01 12:59 | ENT - Progress Note ---
Date of Encounter: 07/01/17 Time of Encounter: 12:57 - Assessment and Plan (1) Tracheostomy dependence Current Visit: Yes Status: Acute Patient currently status post tracheostomy postoperative day #10. Patient with a difficult trach and due to obese nature and limited exposure in the neck. Tracheostomy was performed by Dr. Rowland. Standard tracheostomy was performed without Kirstie flap. Stay sutures were clipped today at the bedside. I do not feel comfortable changing the patient's trach at this current time due to difficult tracheostomy and history of coding at the time of the procedure. Dr. Rowland was only able to place a size 5 proximal extended tracheostomy tube. Would recommend trying to up size this patient to a 6 or greater if possible on the next change. Would recommend waiting for this change until at least 2 weeks to a month postoperatively so that more well formed tract can be obtained prior to change. Patient is being transferred prior to this time [facility] a [facility] facility. Would recommend patient to follow up with local ENT after transfer for tracheostomy tube change of this will be the first change after the original trach was performed. Recommend this change be performed in 1 -3 weeks from now. This was discussed at length with the critical care team that managing her care. Further trach treatment per accepting facility. (2) Chronic respiratory failure Current Visit: Yes Status: Chronic Qualifiers: Respiratory failure complication: hypoxia and hypercapnia Qualified Code(s) : J96.11 - Chronic respiratory failure with hypoxia; J96.12 - Chronic respiratory failure with hypercapnia Subjective Patient reports: no new complaints (Patient remains intubated and on vent. Patient remains on vasopressors at this time. Plan to transfer to select specialty today.) Objective Initial Vital Signs Resp BP Pulse Ox 24 85/62 94 05/29/17 06:40 05/29/17 06:40 05/29/17 06:40 - General physical appearance obese, other (Patient currently on ventilator with PEEP of 8) - Eyes normal ocular movement - ENT normal nares - Neck trachea midline, other (#5 proximal extended Shiley tracheostomy tube in place without any drainage or bleeding from the tracheostomy site, faceplate of the trach was sutured in place, the sutures were removed at the bedside today without any difficulty. Trach tube is well seated and secured with Velcro trach ties.) - Labs 07/01/17 03:35 07/01/17 03:35 Diabetes panel 07/01/17 Range/Units 03:35 Sodium 138 (136-145) mEq/L Potassium 3.8 (3.5-4.5) mEq/L Chloride 94 L (98-109) mEq/L Carbon Dioxide 35 H (19-29) mEq/L BUN 54 H (7-20) mg/dL Creatinine 1.91 H (0.57-1.11) mg/dL Glucose 168 H (70-99) mg/dL Calcium 8.9 (8.6-10.8) mg/dL Calcium panel 07/01/17 Range/Units 03:35 Calcium 8.9 (8.6-10.8) mg/dL Phosphorus 4.8 H (2.3-4.7) mg/dL Pituitary panel 07/01/17 Range/Units 03:35 Sodium 138 (136-145) mEq/L Potassium 3.8 (3.5-4.5) mEq/L Chloride 94 L (98-109) mEq/L Carbon Dioxide 35 H (19-29) mEq/L BUN 54 H (7-20) mg/dL Creatinine 1.91 H (0.57-1.11) mg/dL Glucose 168 H (70-99) mg/dL Calcium 8.9 (8.6-10.8) mg/dL Adrenal panel 07/01/17 Range/Units 03:35 Sodium 138 (136-145) mEq/L Potassium 3.8 (3.5-4.5) mEq/L Chloride 94 L (98-109) mEq/L Carbon Dioxide 35 H (19-29) mEq/L BUN 54 H (7-20) mg/dL Creatinine 1.91 H (0.57-1.11) mg/dL Glucose 168 H (70-99) mg/dL Calcium 8.9 (8.6-10.8) mg/dL - VTE Documentation of Mechanical Device: Intermittent pneumatic compression device Consult Discharge Plan - Plan Referrals: Mi Warren, [employer] [Advanced Practice Nurse] - (computers are down call back later )
[2017-07-01] MEDS: MILRINONE 20 MG/100 ML IVC SCH (16:37)
[2017-07-01 19:11] VITALS: BP 80/55
== END 2017-07-01 20:19 | DRG 4 ==
LOC: 2NNU → PREINTOOBSV 07:09 → SUATTDRO 09:21 → ICNU 05-31 10:22 → 2NENU 06-08 17:59 → ICNU 06-16 00:52
PROVIDERS: ADMIT Internal Medicine; ATTEND Internal Medicine Sleep Medicine